=== PATIENT | female | born 1950 | race Caucasian/White ===

== ENCOUNTER 2018-07-05 17:50 | Inpatient (IN) | payer BC ==
[~2018-07-05] VITALS: Ht 157.5 cm; Wt 51.1 kg
[2018-07-05 19:39] VITALS: BP 138/59; PULSE 94; RESP 16
[2018-07-05 20:00] VITALS: PULSE 84; Ht 157.5 cm; Wt 51.1 kg
[2018-07-05] MEDS ORDERED: NACL 0.9% 3 ML SYG IV SCH (21:00)
[2018-07-05] MEDS ORDERED: ACETAMINOPHEN 325 MG TAB PO PRN (21:00)
[2018-07-05] MEDS ORDERED: ALBUTEROL/IPRATROPIUM (NEB) 3 ML AMP HHN PRN (21:00)
[2018-07-05] MEDS ORDERED: HYDROCODONE/APAP (5/325) TAB PO PRN ×2 (21:00)
[2018-07-05] MEDS ORDERED: ONDANSETRON 4 MG INJ IV PRN (21:00)
[2018-07-05] MEDS ORDERED: ATOR20TA38 PO (21:27)
[2018-07-05] MEDS ORDERED: ALBU90AE INHALATION (21:27)
[2018-07-05] MEDS ORDERED: MINE3.5O31 BOTH EYES (21:27)
[2018-07-05] MEDS ORDERED: ASPI-817 PO (21:27)
[2018-07-05] MEDS: SOD CHLORIDE 0.9% 1,000 ML IV SCH (21:30)
[2018-07-05] MEDS ORDERED: VANCOMYCIN IV PER PHARMACY XX SCH (21:30)
[2018-07-05] MEDS ORDERED: CYAN50TA PO (21:42)
[2018-07-05] MEDS ORDERED: CLOP75TA27 PO (21:42)
[2018-07-05] MEDS ORDERED: OMEG-135 PO (21:43)
[2018-07-05] MEDS ORDERED: LEVO50TA89 PO (21:44)
[2018-07-05] MEDS ORDERED: HYDR-4011 PO (21:44)
[2018-07-05] MEDS ORDERED: METF-849 PO (21:45)
[2018-07-05] MEDS ORDERED: METO-335 PO (21:46)
[2018-07-05] MEDS ORDERED: PANT40TA3 PO (21:50)
[2018-07-05] MEDS ORDERED: ONDA8TAB9 PO (21:50)
[2018-07-05] MEDS ORDERED: SODI650T PO (21:51)
[2018-07-05] MEDS ORDERED: PROP30DR BOTH EYES (21:51)
[2018-07-05] MEDS: HEPARIN 5,000 UNIT/1 ML VIAL SC SCH (22:59)
[2018-07-05] MEDS ORDERED: DEXTROSE 50% 50 ML SYRINGE IV PRN ×2 (23:00)
[2018-07-05] MEDS ORDERED: GLUCOSE GEL 15 GRAM TUBE BUCCAL PRN (23:00)
[2018-07-05] MEDS ORDERED: GLUCOSE GEL 15 GRAM TUBE PO PRN ×2 (23:00)
[2018-07-05] MEDS ORDERED: GLUCAGON 1 MG INJ IM PRN (23:00)
[2018-07-05] MEDS: INSULIN ASPART [NOVOLOG] 3 ML PEN SC SCH (23:42)
[2018-07-05] MEDS: ACCU-CHEK XX SCH (23:47)
[2018-07-06] VITALS (10 sets, daily range): BP systolic 133–158; BP diastolic 62–88; PULSE 67–110; RESP 16–22
[2018-07-06] MEDS: VANCOMYCIN 750 MG (PMX) 250 ML IVPB SCH ×2 (02:51→15:16)
--- NOTE | 2018-07-06 07:12 | HP ---
Date/Time of Note Date/Time of Note DATE: 07/06/18 TIME: 22:00 Assessment/Plan VTE Prophylaxis Risk score (from Nsg)>0 risk: 4 SCD applied (from Nsg): Yes Pharmacological prophylaxis: heparin Lines/Catheters IV Catheter Type (from Nrsg): Saline Lock Urinary Cath still in place: No Assessment/Plan Assessment/Plan 1. Left lower extremity cellulitis -IV antibiotic 2. Type 2 diabetes: Insulin while in-house 3. Hypertension: Continue home meds. Adjust as needed 4. Hypothyroidism: Continue Synthroid Result Diagram: 07/06/18 0459 07/06/18 0459 Results 24hrs Laboratory Tests Test 07/05/18 19:45 07/05/18 23:41 07/06/18 04:59 Bedside Glucose 181 139 White Blood Count 10.7 Red Blood Count 3.68 L Hemoglobin 10.5 L Hematocrit 33.0 L Mean Corpuscular Volume 89.7 Mean Corpuscular Hemoglobin 28.5 L Mean Corpuscular Hemoglobin Concent 31.8 L Red Cell Distribution Width 15.4 H Platelet Count 607 H Mean Platelet Volume 9.2 Immature Granulocytes % 0.400 Neutrophils % 63.2 Lymphocytes % 23.9 Monocytes % 9.4 Eosinophils % 2.6 Basophils % 0.5 Nucleated Red Blood Cells % 0.0 Immature Granulocytes # 0.040 H Neutrophils # 6.8 Lymphocytes # 2.6 Monocytes # 1.0 H Eosinophils # 0.3 Basophils # 0.1 Nucleated Red Blood Cells # 0.0 Sodium Level 141 Potassium Level 4.2 Chloride Level 109 Carbon Dioxide Level 23 Anion Gap 9 Blood Urea Nitrogen 15 Creatinine 0.93 Est Glomerular Filtrat Rate mL/min 60 Glucose Level 167 Calcium Level 9.5 Phosphorus Level 3.5 Magnesium Level 1.5 L Total Bilirubin 0.3 Direct Bilirubin 0.00 Indirect Bilirubin 0.3 Aspartate Amino Transf (AST/SGOT) 26 Alanine Aminotransferase (ALT/SGPT) 10 L Alkaline Phosphatase 101 Total Protein 6.9 Albumin 3.7 Globulin 3.20 Albumin/Globulin Ratio 1.15 Triglycerides Level 121 Cholesterol Level 118 LDL Cholesterol, Calculated 44 HDL Cholesterol 50 Cholesterol/HDL Ratio 2.3 HPI/ROS Admit Date/Time Admit Date/Time July 05, 2018 at 18:58 Hx of Present Illness This is a 67-year-old female with a history of hypertension, type 2 diabetes, dyslipidemia, hypothyroidism who initially presented at [facility] complaining of left lower extremity redness and swelling. Patient was diagnosed with cellulitis and transferred to [facility] for insurance reasons. PMH/Family/Social Past Medical History Past Surgical Hx: other (see hpi) Family History Significant Family History: no pertinent family hx Social History Alcohol Use: none Smoking Status: Never smoker Drug Use: none Exam Exam Constitutional: other (No acute distress) Head: normocephalic, atraumatic Eyes: EOMI, PERRL Respiratory: other (no wheezing or Rhonchi) Cardiovascular: normal pulse Gastrointestinal: soft, non-tender Extremities: normal pulses Medications Current Medications Sodium Chloride 1,000 ml @ 80 mls/hr [id number] IV Last administered on 07/05/18at 21:30; Admin Dose 80 MLS/HR; Start 07/05/18 at 20:55 IV Flush (NS 3 ml) 3 ml PER PROTOCOL IV ; Start 07/05/18 at 21:00 Ondansetron HCl (Zofran Inj) 4 mg Q6H PRN IV NAUSEA/VOMITING; Start 07/05/18 at 21:00 Acetaminophen (Tylenol Tab) 650 mg Q6H PRN PO .PAIN 1-3 OR TEMP; Start 07/05/18 at 21:00 Acetaminophen/ Hydrocodone Bitart ([place] (5/325)) 1 tab Q6H PRN PO .MOD PAIN 4- 6; Start 07/05/18 at 21:00 Acetaminophen/ Hydrocodone Bitart ([place] (5/325)) 2 tab Q6H PRN PO .SEVERE PAIN 7-10; Start 07/05/18 at 21:00 Heparin Sodium (Porcine) (Heparin (5000 Units/1ml)) 5,000 unit Q12 SC Last administered on 07/05/18at 22:59; Admin Dose 5,000 UNIT; Start 07/05/18 at 21:00 Albuterol/ Ipratropium (Duoneb) 3 ml Q2H RESP THERAPY PRN HHN SHORTNESS OF BREATH; Start 07/05/18 at 21:00 Diagnostic Test (Pha) (Accu-Chek) 1 ea 02 XX ; Start 07/06/18 at 02:00 Insulin Aspart (Novolog Insulin Pen) NOVOLOG *MILD* ALGORITHM WITH MEALS BEDTIME SC ; Start 07/05/18 at 22:30 Vancomycin HCl (Vanco Iv Per Pharmacy) VANCOMYCIN PER PHARMACY PER PROTOCOL XX ; Start 07/05/18 at 21:30 Cefepime HCl 50 ml @ 100 mls/hr Q12 IVPB ; Start 07/06/18 at 09:00 Miscellaneous Information 1 ea NOTE XX ; Start 07/05/18 at 23:00 Glucose (Glutose) 15 gm Q15M PRN PO DECREASED GLUCOSE; Start 07/05/18 at 23:00 Glucose (Glutose) 22.5 gm Q15M PRN PO DECREASED GLUCOSE; Start 07/05/18 at 23:00 Dextrose (D50w Syringe) 25 ml Q15M PRN IV DECREASED GLUCOSE; Start 07/05/18 at 23:00 Dextrose (D50w Syringe) 50 ml Q15M PRN IV DECREASED GLUCOSE; Start 07/05/18 at 23:00 Glucagon (Glucagen) 1 mg Q15M PRN IM DECREASED GLUCOSE; Start 07/05/18 at 23:00 Glucose (Glutose) 15 gm Q15M PRN BUCCAL DECREASED GLUCOSE; Start 07/05/18 at 23: 00 Vancomycin/Sodium Chloride 250 ml @ 125 mls/hr Q12H IVPB Last administered on 07/06/18at 02:51; Admin Dose 125 MLS/HR; Start 07/06/18 at 03:00 Coded Allergies: levofloxacin (Verified Allergy, Unknown, 07/05/18) Social History Smoking Status: Never smoker Exam/Review of Systems Vital Signs Vitals Vital Signs Date Temp Pulse Resp B/P (MAP) Pulse Ox O2 O2 Flow FiO2 Time Delivery Rate 07/06/18 110 04:00 07/06/18 97.6 22 145/68 100 Room Air 04:00 (93) Intake and Output 07/05/18 07/05/18 07/06/18 1515:00 23:00 07:00 IntakeIntake Total 180 ml 910 ml BalanceBalance 180 ml 910 ml ARSH KIM MD July 06, 2018 07:12
[2018-07-06] MEDS ORDERED: OCULAR LUBRICANT 3.5 GM OPH OINT BOTH EYES PRN (07:30)
[2018-07-06] MEDS ORDERED: PROPYLENE GLYCOL/PEG 5 ML OPHTH DROPS BOTH EYES PRN ×2 (07:30→09:08)
[2018-07-06] MEDS: INSULIN ASPART [NOVOLOG] 3 ML PEN SC SCH ×4 (07:35→20:29)
[2018-07-06] MEDS: PANTOPRAZOLE (EC) 40 MG TAB PO SCH (07:56)
[2018-07-06] MEDS: SOD CHLORIDE 0.9% 1,000 ML IV SCH (10:34)
[2018-07-06] MEDS: CEFEPIME 1GM/50 ML (PMX) 50 ML IVPB SCH ×2 (10:53→20:14)
[2018-07-06] MEDS: CLOPIDOGREL 75 MG TAB PO SCH (10:54)
[2018-07-06] MEDS: METOPROLOL (XL) 25 MG TAB PO SCH ×2 (10:54→20:15)
[2018-07-06] MEDS: ASPIRIN (EC) 81 MG TAB PO SCH (10:54)
[2018-07-06] MEDS: FISH OIL 1,000 MG CAP PO SCH (10:55)
--- NOTE | 2018-07-06 11:15 | PN ---
Date/Time of Note Date/Time of Note DATE: 07/06/18 TIME: 11:13 Assessment/Plan VTE Prophylaxis Risk score (from Ns)>0 risk: 4 SCD applied (from Ns): No SCD contraindicated: low risk/ambulating Pharmacological prophylaxis: LMWH Lines/Catheters IV Catheter Type (from [facility] Saline Lock Urinary Cath still in place: No Assessment/Plan Hospital Course Assessment plan 1. Left lower extremity cellulitis, stable continue therapy 2. Bilateral stasis left greater than right 3. Dependent edema 4. Diabetic neuropathy 5. Onychomycosis? 6. Type 2 diabetes A1c 6.6 7. Metabolic syndrome 8. Hypertension 9. Dyslipidemia 10. Anemia, check iron 11. Chronic hypothyroidism 12. Chronic left cataract? S: Edema lt > rt. no fever nausea vomiting. Gait dysfunction due to edema? No loss of speech or vision. O: Vital signs stable sinus poor r PE no pallor/ jvd/ adenopathy reg s1s2 no mrg ctab bs + nt nd; no r r g mild edema/ stasis; lt erythema; neuropathy Result Diagram: 07/06/18 0459 07/06/18 0459 Results 24hrs Laboratory Tests Test 07/05/18 19:45 07/05/18 23:41 07/06/18 04:59 07/06/18 10:31 Bedside Glucose 181 139 107 White Blood Count 10.7 Red Blood Count 3.68 L Hemoglobin 10.5 L Hematocrit 33.0 L Mean Corpuscular 89.7 Volume Mean Corpuscular 28.5 L Hemoglobin Mean Corpuscular 31.8 L Hemoglobin Concent Red Cell Distribution 15.4 H Width Platelet Count 607 H Mean Platelet Volume 9.2 Immature Granulocytes 0.400 % Neutrophils % 63.2 Lymphocytes % 23.9 Monocytes % 9.4 Eosinophils % 2.6 Basophils % 0.5 Nucleated Red Blood 0.0 Cells % Immature Granulocytes 0.040 H # Neutrophils # 6.8 Lymphocytes # 2.6 Monocytes # 1.0 H Eosinophils # 0.3 Basophils # 0.1 Nucleated Red Blood 0.0 Cells # Sodium Level 141 Potassium Level 4.2 Chloride Level 109 Carbon Dioxide Level 23 Anion Gap 9 Blood Urea Nitrogen 15 Creatinine 0.93 Est Glomerular Filtrat 60 Rate mL/min Glucose Level 167 Hemoglobin A1c 6.6 H Calcium Level 9.5 Phosphorus Level 3.5 Magnesium Level 1.5 L Total Bilirubin 0.3 Direct Bilirubin 0.00 Indirect Bilirubin 0.3 Aspartate Amino 26 Transf (AST/SGOT) Alanine 10 L Aminotransferase (ALT/ SGPT) Alkaline Phosphatase 101 Total Protein 6.9 Albumin 3.7 Globulin 3.20 Albumin/Globulin Ratio 1.15 Triglycerides Level 121 Cholesterol Level 118 LDL Cholesterol, 44 Calculated HDL Cholesterol 50 Cholesterol/HDL Ratio 2.3 Exam/Review of Systems Exam Vitals Vital Signs Date Temp Pulse Resp B/P (MAP) Pulse Ox O2 O2 Flow FiO2 Time Delivery Rate 07/06/18 88 10:01 07/06/18 98.0 18 134/64 97 Room Air 09:01 (87) Intake and Output 07/05/18 07/05/18 07/06/18 1515:00 23:00 07:00 IntakeIntake Total 180 ml 910 ml BalanceBalance 180 ml 910 ml Results Results 24hrs Laboratory Tests Test 07/05/18 19:45 07/05/18 23:41 07/06/18 04:59 07/06/18 10:31 Bedside Glucose 181 139 107 White Blood Count 10.7 Red Blood Count 3.68 L Hemoglobin 10.5 L Hematocrit 33.0 L Mean Corpuscular 89.7 Volume Mean Corpuscular 28.5 L Hemoglobin Mean Corpuscular 31.8 L Hemoglobin Concent Red Cell Distribution 15.4 H Width Platelet Count 607 H Mean Platelet Volume 9.2 Immature Granulocytes 0.400 % Neutrophils % 63.2 Lymphocytes % 23.9 Monocytes % 9.4 Eosinophils % 2.6 Basophils % 0.5 Nucleated Red Blood 0.0 Cells % Immature Granulocytes 0.040 H # Neutrophils # 6.8 Lymphocytes # 2.6 Monocytes # 1.0 H Eosinophils # 0.3 Basophils # 0.1 Nucleated Red Blood 0.0 Cells # Sodium Level 141 Potassium Level 4.2 Chloride Level 109 Carbon Dioxide Level 23 Anion Gap 9 Blood Urea Nitrogen 15 Creatinine 0.93 Est Glomerular Filtrat 60 Rate mL/min Glucose Level 167 Hemoglobin A1c 6.6 H Calcium Level 9.5 Phosphorus Level 3.5 Magnesium Level 1.5 L Total Bilirubin 0.3 Direct Bilirubin 0.00 Indirect Bilirubin 0.3 Aspartate Amino 26 Transf (AST/SGOT) Alanine 10 L Aminotransferase (ALT/ SGPT) Alkaline Phosphatase 101 Total Protein 6.9 Albumin 3.7 Globulin 3.20 Albumin/Globulin Ratio 1.15 Triglycerides Level 121 Cholesterol Level 118 LDL Cholesterol, 44 Calculated HDL Cholesterol 50 Cholesterol/HDL Ratio 2.3 Medications Medication Current Medications Sodium Chloride 1,000 ml @ 80 mls/hr [id number] IV Last administered on 07/06/18at 10:34; Admin Dose 80 MLS/HR; Start 07/05/18 at 20:55 IV Flush (NS 3 ml) 3 ml PER PROTOCOL IV ; Start 07/05/18 at 21:00 Ondansetron HCl (Zofran Inj) 4 mg Q6H PRN IV NAUSEA/VOMITING; Start 07/05/18 at 21:00 Acetaminophen (Tylenol Tab) 650 mg Q6H PRN PO .PAIN 1-3 OR TEMP; Start 07/05/18 at 21:00 Acetaminophen/ Hydrocodone Bitart ([place] (5/325)) 1 tab Q6H PRN PO .MOD PAIN 4- 6; Start 07/05/18 at 21:00 Acetaminophen/ Hydrocodone Bitart ([place] (5/325)) 2 tab Q6H PRN PO .SEVERE PAIN 7-10; Start 07/05/18 at 21:00 Heparin Sodium (Porcine) (Heparin (5000 Units/1ml)) 5,000 unit Q12 SC Last administered on 07/05/18at 22:59; Admin Dose 5,000 UNIT; Start 07/05/18 at 21:00 Albuterol/ Ipratropium (Duoneb) 3 ml Q2H RESP THERAPY PRN HHN SHORTNESS OF B REATH; Start 07/05/18 at 21:00 Diagnostic Test (Pha) (Accu-Chek) 1 ea 02 XX ; Start 07/06/18 at 02:00 Insulin Aspart (Novolog Insulin Pen) NOVOLOG *MILD* ALGORITHM WITH MEALS BEDTIME SC ; Start 07/05/18 at 22:30 Vancomycin HCl (Vanco Iv Per Pharmacy) VANCOMYCIN PER PHARMACY PER PROTOCOL XX ; Start 07/05/18 at 21:30 Cefepime HCl 50 ml @ 100 mls/hr Q12 IVPB ; Start 07/06/18 at 09:00 Miscellaneous Information 1 ea NOTE XX ; Start 07/05/18 at 23:00 Glucose (Glutose) 15 gm Q15M PRN PO DECREASED GLUCOSE; Start 07/05/18 at 23:00 Glucose (Glutose) 22.5 gm Q15M PRN PO DECREASED GLUCOSE; Start 07/05/18 at 23:00 Dextrose (D50w Syringe) 25 ml Q15M PRN IV DECREASED GLUCOSE; Start 07/05/18 at 23:00 Dextrose (D50w Syringe) 50 ml Q15M PRN IV DECREASED GLUCOSE; Start 07/05/18 at 23:00 Glucagon (Glucagen) 1 mg Q15M PRN IM DECREASED GLUCOSE; Start 07/05/18 at 23:00 Glucose (Glutose) 15 gm Q15M PRN BUCCAL DECREASED GLUCOSE; Start 07/05/18 at 23:00 Vancomycin/Sodium Chloride 250 ml @ 125 mls/hr Q12H IVPB Last administered on 07/06/18at 02:51; Admin Dose 125 MLS/HR; Start 07/06/18 at 03:00 Eye Lubricant (Akwa Oint) 1 applic Q1H PRN BOTH EYES DRY EYES; Start 07/06/18 at 07:30 Aspirin (Halfprin) 81 mg DAILY PO ; Start 07/06/18 at 09:00 Atorvastatin Calcium (Lipitor) 20 mg QHS PO ; Start 07/06/18 at 21:00 Clopidogrel Bisulfate (plaVIX) 75 mg DAILY PO ; Start 07/06/18 at 09:00 Levothyroxine Sodium (Synthroid) 50 mcg BEFORE BREAKFAST PO ; Start 07/07/18 at 07:00 Metoprolol Succinate (Toprol Xl) 25 mg BID PO ; Start 07/06/18 at 09:00 Pantoprazole (Protonix Tab) 40 mg DAILY@0600 PO Last administered on 07/06/18at 07:56; Admin Dose 40 MG; Start 07/06/18 at 07:30 Miscellaneous Information 2 puffs Q4 PRN INHALATION WHEEZING; Start 07/06/18 at 07:30; Status UNV Fish Oil (Fish Oil) 1,000 mg DAILY PO ; Start 07/06/18 at 09:00 Polyethyl Glycol/ Propylene Glycol (Systane 0.3-0.4% Eye Drops) 1 drop Q4H PRN BOTH EYES DRY EYES; Start 07/06/18 at 09:08 FERNANDO YANCEY MD July 06, 2018 11:15
[2018-07-06] MEDS: HEPARIN 5,000 UNIT/1 ML VIAL SC SCH (11:16)
[2018-07-06] MEDS ORDERED: ALBUTEROL HFA 8 GM INHALER INH PRN (12:30)
[2018-07-06] MEDS: MAGNESIUM OXIDE 400 MG TAB PO SCH ×2 (12:30→20:14)
[2018-07-06] MEDS: ATORVASTATIN 20 MG TAB PO SCH (20:14)
[2018-07-07] VITALS (11 sets, daily range): BP systolic 106–146; BP diastolic 55–76; PULSE 58–79; RESP 17–18
[2018-07-07] MEDS: ACCU-CHEK XX SCH (02:00)
[2018-07-07] MEDS: LEVOTHYROXINE 50 MCG TAB PO SCH (06:20)
[2018-07-07] MEDS: PANTOPRAZOLE (EC) 40 MG TAB PO SCH (06:23)
[2018-07-07] MEDS: INSULIN ASPART [NOVOLOG] 3 ML PEN SC SCH ×4 (07:55→20:27)
[2018-07-07] MEDS: VANCOMYCIN 500 MG (PMX) 100 ML IVPB SCH ×2 (08:52→20:43)
[2018-07-07] MEDS: METOPROLOL (XL) 25 MG TAB PO SCH ×2 (08:53→20:36)
[2018-07-07] MEDS: FISH OIL 1,000 MG CAP PO SCH (08:53)
[2018-07-07] MEDS: CLOPIDOGREL 75 MG TAB PO SCH (08:53)
[2018-07-07] MEDS: MAGNESIUM OXIDE 400 MG TAB PO SCH ×2 (08:54→20:35)
[2018-07-07] MEDS: ASPIRIN (EC) 81 MG TAB PO SCH (08:54)
[2018-07-07] MEDS: LACTOBACILLUS RHAMNOSUS CAP PO SCH ×2 (08:54→20:34)
[2018-07-07] MEDS: LISINOPRIL 5 MG TAB PO SCH (08:54)
[2018-07-07] MEDS: ENOXAPARIN 30 MG/0.3 ML SYG SC SCH (08:56)
[2018-07-07] MEDS: CEFEPIME 1GM/50 ML (PMX) 50 ML IVPB SCH (10:28)
--- NOTE | 2018-07-07 15:08 | PN ---
Date/Time of Note Date/Time of Note DATE: 07/07/18 TIME: 15:04 Assessment/Plan VTE Prophylaxis Risk score (from Ns)>0 risk: 3 SCD applied (from Ns): No SCD contraindicated: low risk/ambulating Pharmacological prophylaxis: LMWH Lines/Catheters IV Catheter Type (from Nrs): Peripheral IV Urinary Cath still in place: No Assessment/Plan Hospital Course Assessment plan 1. Lt lwr ext cellulitis, stable cont therapy. outpt PT/ APC 2. Bilateral stasis left > right 3. Dependent edema 4. Diabetic neuropathy 5. Onychomycosis? 6. Type 2 diabetes A1c 6.6 7. Metabolic syndrome 8. Hypertension 9. Dyslipidemia 10. Anemia, check iron 11. Chronic hypothyroidism 12. Chronic left cataract? 13. PAD; outpt vascular S: 07/06: Edema lt > rt. no fever nausea vomiting. Gait dysfunction due to edema? No loss of speech or vision. 07/07: no events; gait dysfunction O: Vital signs stable sinus poor r PE no pallor/ jvd/ adenopathy reg s1s2 no mrg ctab bs + nt nd; no r r g mild edema/ stasis; lt erythema; neuropathy non focal Result Diagram: 07/07/18 0608 07/07/18 0608 Results 24hrs Laboratory Tests Test 07/06/18 17:28 07/06/18 20:27 07/07/18 01:57 07/07/18 06:08 Bedside Glucose 95 174 Vancomycin Level 19.7 Trough White Blood Count 8.9 Red Blood Count 3.35 L Hemoglobin 9.7 L Hematocrit 30.3 L Mean Corpuscular 90.4 Volume Mean Corpuscular 29.0 Hemoglobin Mean Corpuscular 32.0 Hemoglobin Concent Red Cell 15.3 H Distribution Width Platelet Count 541 H Mean Platelet Volume 9.2 Immature 0.300 Granulocytes % Neutrophils % 62.8 Lymphocytes % 21.6 Monocytes % 11.9 H Eosinophils % 2.9 Basophils % 0.5 Nucleated Red Blood 0.0 Cells % Immature 0.030 Granulocytes # Neutrophils # 5.6 Lymphocytes # 1.9 Monocytes # 1.1 H Eosinophils # 0.3 Basophils # 0.0 Nucleated Red Blood 0.0 Cells # Erythrocyte 40.0 H Sedimentation Rate Prothrombin Time 12.6 Prothrombin Time 1.0 Ratio INR International 0.93 Normalized Ratio Sodium Level 144 Potassium Level 4.3 Chloride Level 112 H Carbon Dioxide Level 23 Anion Gap 9 Blood Urea Nitrogen 11 Creatinine 0.83 Est Glomerular > 60 Filtrat Rate mL/min Glucose Level 121 # Lactic Acid Level 1.1 Calcium Level 9.2 Iron Level 36 Total Iron Binding 280 Capacity Percent Iron 13 L Saturation Total Bilirubin 0.3 Direct Bilirubin 0.00 Indirect Bilirubin 0.3 Aspartate Amino 32 Transf (AST/SGOT) Alanine 25 Aminotransferase (AL T/SGPT) Alkaline Phosphatase 94 C-Reactive Protein 1.8 H Total Protein 6.3 Albumin 3.1 L Globulin 3.20 Albumin/Globulin 0.96 Ratio Lipase 68 Folate > 20.0 H Thyroid Stimulating 3.840 Hormone (TSH) Test 07/07/18 07:53 07/07/18 11:55 Bedside Glucose 124 162 Exam/Review of Systems Exam Vitals Vital Signs Date Temp Pulse Resp B/P (MAP) Pulse Ox O2 O2 Flow FiO2 Time Delivery Rate 07/07/18 74 13:22 07/07/18 98.0 18 111/67 97 Room Air 11:00 (82) Intake and Output 07/06/18 07/06/18 07/07/18 1515:00 23:00 07:00 IntakeIntake Total 730 ml 400 ml BalanceBalance 730 ml 400 ml Results Results 24hrs Laboratory Tests Test 07/06/18 17:28 07/06/18 20:27 07/07/18 01:57 07/07/18 06:08 Bedside Glucose 95 174 Vancomycin Level 19.7 Trough White Blood Count 8.9 Red Blood Count 3.35 L Hemoglobin 9.7 L Hematocrit 30.3 L Mean Corpuscular 90.4 Volume Mean Corpuscular 29.0 Hemoglobin Mean Corpuscular 32.0 Hemoglobin Concent Red Cell 15.3 H Distribution Width Platelet Count 541 H Mean Platelet Volume 9.2 Immature 0.300 Granulocytes % Neutrophils % 62.8 Lymphocytes % 21.6 Monocytes % 11.9 H Eosinophils % 2.9 Basophils % 0.5 Nucleated Red Blood 0.0 Cells % Immature 0.030 Granulocytes # Neutrophils # 5.6 Lymphocytes # 1.9 Monocytes # 1.1 H Eosinophils # 0.3 Basophils # 0.0 Nucleated Red Blood 0.0 Cells # Erythrocyte 40.0 H Sedimentation Rate Prothrombin Time 12.6 Prothrombin Time 1.0 Ratio INR International 0.93 Normalized Ratio Sodium Level 144 Potassium Level 4.3 Chloride Level 112 H Carbon Dioxide Level 23 Anion Gap 9 Blood Urea Nitrogen 11 Creatinine 0.83 Est Glomerular > 60 Filtrat Rate mL/min Glucose Level 121 # Lactic Acid Level 1.1 Calcium Level 9.2 Iron Level 36 Total Iron Binding 280 Capacity Percent Iron 13 L Saturation Total Bilirubin 0.3 Direct Bilirubin 0.00 Indirect Bilirubin 0.3 Aspartate Amino 32 Transf (AST/SGOT) Alanine 25 Aminotransferase (AL T/SGPT) Alkaline Phosphatase 94 C-Reactive Protein 1.8 H Total Protein 6.3 Albumin 3.1 L Globulin 3.20 Albumin/Globulin 0.96 Ratio Lipase 68 Folate > 20.0 H Thyroid Stimulating 3.840 Hormone (TSH) Test 07/07/18 07:53 07/07/18 11:55 Bedside Glucose 124 162 Medications Medication Current Medications IV Flush (NS 3 ml) 3 ml PER PROTOCOL IV ; Start 07/05/18 at 21:00 Ondansetron HCl (Zofran Inj) 4 mg Q6H PRN IV NAUSEA/VOMITING; Start 07/05/18 at 21:00 Acetaminophen (Tylenol Tab) 650 mg Q6H PRN PO .PAIN 1-3 OR TEMP; Start 07/05/18 at 21:00 Acetaminophen/ Hydrocodone Bitart ([place] (5/325)) 1 tab Q6H PRN PO .MOD PAIN 4- 6; Start 07/05/18 at 21:00 Acetaminophen/ Hydrocodone Bitart ([place] (5/325)) 2 tab Q6H PRN PO .SEVERE PAIN 7-10; Start 07/05/18 at 21:00 Albuterol/ Ipratropium (Duoneb) 3 ml Q2H RESP THERAPY PRN HHN SHORTNESS OF BREATH; Start 07/05/18 at 21:00 Diagnostic Test (Pha) (Accu-Chek) 1 ea 02 XX ; Start 07/06/18 at 02:00 Insulin Aspart (Novolog Insulin Pen) NOVOLOG *MILD* ALGORITHM WITH MEALS BEDTIME SC Last administered on 07/07/18at 12:16; Admin Dose 1 UNIT; Start 07/05/18 at 22:30 Vancomycin HCl (Vanco Iv Per Pharmacy) VANCOMYCIN PER PHARMACY PER PROTOCOL XX ; Start 07/05/18 at 21:30 Cefepime HCl 50 ml @ 100 mls/hr Q12 IVPB Last administered on 07/07/18at 10:28; Admin Dose 100 MLS/HR; Start 07/06/18 at 09:00 Miscellaneous Information 1 ea NOTE XX ; Start 07/05/18 at 23:00 Glucose (Glutose) 15 gm Q15M PRN PO DECREASED GLUCOSE; Start 07/05/18 at 23:00 Glucose (Glutose) 22.5 gm Q15M PRN PO DECREASED GLUCOSE; Start 07/05/18 at 23:00 Dextrose (D50w Syringe) 25 ml Q15M PRN IV DECREASED GLUCOSE; Start 07/05/18 at 23:00 Dextrose (D50w Syringe) 50 ml Q15M PRN IV DECREASED GLUCOSE; Start 07/05/18 at 23:00 Glucagon (Glucagen) 1 mg Q15M PRN IM DECREASED GLUCOSE; Start 07/05/18 at 23:00 Glucose (Glutose) 15 gm Q15M PRN BUCCAL DECREASED GLUCOSE; Start 07/05/18 at 23:00 Eye Lubricant (Akwa Oint) 1 applic Q1H PRN BOTH EYES DRY EYES; Start 07/06/18 at 07:30 Aspirin (Halfprin) 81 mg DAILY PO Last administered on 07/07/18at 08:54; Admin Dose 81 MG; Start 07/06/18 at 09:00 Atorvastatin Calcium (Lipitor) 20 mg QHS PO Last administered on 07/06/18at 20:14; Admin Dose 20 MG; Start 07/06/18 at 21:00 Clopidogrel Bisulfate (plaVIX) 75 mg DAILY PO Last administered on 07/07/18at 0 8:53; Admin Dose 75 MG; Start 07/06/18 at 09:00 Levothyroxine Sodium (Synthroid) 50 mcg BEFORE BREAKFAST PO Last administered on 07/07/18at 06:20; Admin Dose 50 MCG; Start 07/07/18 at 07:00 Metoprolol Succinate (Toprol Xl) 25 mg BID PO Last administered on 07/07/18at 08:53; Admin Dose 25 MG; Start 07/06/18 at 09:00 Pantoprazole (Protonix Tab) 40 mg DAILY@0600 PO Last administered on 07/07/18at 06:23; Admin Dose 40 MG; Start 07/06/18 at 07:30 Albuterol (Ventolin Hfa) 2 puff Q4H RESP THERAPY PRN INH WHEEZING; Start 07/06/18 at 12:30 Fish Oil (Fish Oil) 1,000 mg DAILY PO Last administered on 07/07/18 08:53; Admin Dose 1,000 MG; Start 07/06/18 at 09:00 Polyethyl Glycol/ Propylene Glycol (Systane 0.3-0.4% Eye Drops) 1 drop Q4H PRN BOTH EYES DRY EYES; Start 07/06/18 at 09:08 Lisinopril (Zestril) 2.5 mg DAILY PO Last administered on 07/07/18 08:54; Admin Dose 2.5 MG; Start 07/07/18 at 09:00 Enoxaparin Sodium (Lovenox) 30 mg DAILY SC Last administered on 07/07/18 08:56; Admin Dose 30 MG; Start 07/07/18 at 09:00 Lactobacillus Acidophilus/ Rhamnosus (Culturelle) 1 cap BID PO Last adm inistered on 07/07/18 08:54; Admin Dose 1 CAP; Start 07/07/18 at 09:00 Magnesium Oxide (Mag-Ox 400) 400 mg BID PO Last administered on 07/07/18 08:54; Admin Dose 400 MG; Start 07/06/18 at 11:30 Vancomycin HCl 100 ml @ 100 mls/hr Q12H IVPB Last administered on 07/07/18 08:52; Admin Dose 100 MLS/HR; Start 07/07/18 at 08:00 FERNANDO YANCEY MD July 07, 2018 15:08
[2018-07-07] MEDS: ATORVASTATIN 20 MG TAB PO SCH (20:35)
[2018-07-08] MEDS: ACCU-CHEK XX SCH (01:40)
[2018-07-08 02:25] VITALS: BP 117/60; PULSE 73; RESP 18
[2018-07-08] MEDS: LEVOTHYROXINE 50 MCG TAB PO SCH (06:10)
[2018-07-08] MEDS: PANTOPRAZOLE (EC) 40 MG TAB PO SCH (06:10)
[2018-07-08 08:03] VITALS: BP 117/58; PULSE 62; RESP 18
[2018-07-08] MEDS: INSULIN ASPART [NOVOLOG] 3 ML PEN SC SCH ×2 (08:22→12:00)
[2018-07-08] MEDS: ENOXAPARIN 30 MG/0.3 ML SYG SC SCH (08:22)
[2018-07-08] MEDS: ASPIRIN (EC) 81 MG TAB PO SCH (08:25)
[2018-07-08] MEDS: CLOPIDOGREL 75 MG TAB PO SCH (08:25)
[2018-07-08] MEDS: LACTOBACILLUS RHAMNOSUS CAP PO SCH (08:25)
[2018-07-08] MEDS: MAGNESIUM OXIDE 400 MG TAB PO SCH (08:25)
[2018-07-08] MEDS: FISH OIL 1,000 MG CAP PO SCH (08:25)
[2018-07-08] MEDS: METOPROLOL (XL) 25 MG TAB PO SCH (08:26)
[2018-07-08] MEDS: LISINOPRIL 5 MG TAB PO SCH (08:26)
[2018-07-08] MEDS ORDERED: VANCOMYCIN 500 MG (PMX) 100 ML IVPB SCH (09:30)
--- NOTE | 2018-07-08 10:20 | DS ---
Date/Time of Note Date/Time of Note DATE: 07/08/18 TIME: 10:17 Discharge Summary Admission/Discharge Info Admit Date/Time July 05, 2018 at 18:58 Discharge Date/Time Patient Condition: Stable Procedures Arterial lower extremity ultrasound bilaterally IMPRESSION: 1. Monophasic waveforms in the right posterior tibial and dorsalis pedis arteries consistent with a significant right infrapopliteal stenosis. 2. Change from triphasic to monophasic waveforms in the proximal left superficial femoral artery consistent with a significant stenosis. CAT scan brain no contrast IMPRESSION: 1. Moderate diffuse atrophy. 2. Microangiopathic ischemic changes. 3. Old focal right frontal infarct. 4. Vascular calcifications. Hx of Present Illness 67-year-old female admitted with left lower extremity concern of infection Hospital Course Hospitalist coverage/hospital course Evaluated for left lower extremity infection. Erythema edema has improved over her hospital stay. Stable for discharge home on a short course of antibiotics. She potentially had an issue with Levaquin with encephalopathy and loss of appetite. Family updated. We will sent home on short course of Bactrim. Large issue is diabetic neuropathy and peripheral artery disease likely she has not been completely/effectively managed prior to admission. Patient has not seen a coffee urn attendant in over a year since she moved from the [facility]. I will see if case management can refer patient to outpatient podiatry and vascular surgery. She has no significant claudication at this time. Gait dysfunction due to diabetic neuropathy. Has an age undetermined old stroke. Arrange for outpatient PT. Needs advanced care planning reevaluated. Assessment plan 1. Lt lwr ext cellulitis, stable cont therapy. outpt PT/ APC 2. Bilateral stasis left > right 3. Dependent edema 4. Diabetic neuropathy 5. Onychomycosis? 6. Type 2 diabetes A1c 6.6 7. Metabolic syndrome 8. Hypertension 9. Dyslipidemia 10. Anemia, check iron 11. Chronic hypothyroidism 12. Chronic left cataract? 13. PAD; outpt vascular 14. Old stroke by imaging continue risk factor modification S: 07/06: Edema lt > rt. no fever nausea vomiting. Gait dysfunction due to edema? No loss of speech or vision. 07/07: no events; gait dysfunction 07/08: No events O: Vital signs stable PE no pallor/ jvd/ adenopathy reg s1s2 no mrg ctab bs + nt nd; no r r g mild edema/ stasis; lt erythema; neuropathy non focal Home Meds Reported Medications Sodium Bicarbonate* (Sodium Bicarbonate*) 650 Mg Tablet, 650 MG PO TID, TAB 07/05/18 Propylene Glycol-Peg 400 (Systane 0.3-0.4% Eye Drops) 0.3-0.4 % - 30 Ml Drops, 1 DROP BOTH EYES Q4H PRN for DRY EYES, #1 BOTTLE 07/05/18 Pantoprazole* (Protonix*) 40 Mg Tablet.dr, 40 MG PO QAM, TAB 07/05/18 Ondansetron Hcl* (Zofran*) 8 Mg Tablet, 8 MG PO Q6H PRN for NAUSEA AND OR VOMITING, TAB 07/05/18 Metoprolol Succinate* (Toprol XL*) 25 Mg Tab.sr.24h, 25 MG PO BID, #30 TAB 07/05/18 Metformin* (Glucophage*) 500 Mg Tab, 500 MG PO WITH BREAKFAST, #30 TAB 07/05/18 Levothyroxine Sodium* (Synthroid*) 50 Mcg Tablet, 50 MCG PO BEFORE BREAKFAST, #30 TAB 07/05/18 Hydrocodone/Acetaminophen ([place] 5-325 Tablet) 1 Each Tablet, 1 EACH PO Q6 PRN for PAIN, TAB 07/05/18 [place]-3 Fatty Acids/Fish Oil (Fish Oil 1,000 mg Capsule) 1 Each Capsule, 1 EACH PO DAILY, CAP 07/05/18 Cyanocobalamin* (Vitamin B-12*) 50 Mcg Tablet, 50 MCG PO DAILY, TAB 07/05/18 Clopidogrel Bisulfate (Clopidogrel) 75 Mg Tablet, 75 MG PO DAILY, #30 TAB 07/05/18 Atorvastatin Calcium* (Atorvastatin Calcium*) 20 Mg Tablet, 20 MG PO QHS, #30 TAB 07/05/18 Aspirin* (Aspirin* EC) 81 Mg Tablet.dr, 81 MG PO DAILY, TAB 07/05/18 Artificial Tears* (Akwa Oint*) 3.5 Gm Oint, 1 APPLIC BOTH EYES Q1H PRN for DRY EYES, #1 TUB 07/05/18 Albuterol Sulfate (Proair Respiclick) 90 Mcg Aer.pow.ba, 2 PUFFS INHALATION Q4 PRN for WHEEZING, BOTTLE 07/05/18 Primary Care Provider Not On Staff Doctor Time spent on discharge: > 30 minutes Pending Labs Laboratory Tests Test 07/07/18 11:55 07/07/18 17:22 07/07/18 20:26 07/08/18 08:13 Bedside 162 115 170 143 Glucose mg/dL (70-220) mg/dL (70-220) mg/dL (70-220) mg/dL (70-220) FERNANDO YANCEY MD July 08, 2018 10:20
--- NOTE | 2018-07-08 10:32 | PDOCDIS ---
Discharge Instructions CONDITION [id number] Patient Condition: [id number] Stable HOME CARE INSTRUCTIONS: [id number] Diet Instructions: [id number] Activity Restrictions: [id number] Slowly Increase Activity Do not Drive FOLLOW UP/APPOINTMENTS Follow-up Plan appt primary & APC Wound clinic 1wk. Vascular Surgery 1-2wks. FERNANDO YANCEY MD July 08, 2018 10:32
[2018-07-08] MEDS ORDERED: ACET325T33 PO (10:35)
[2018-07-08] MEDS ORDERED: MAGN400T27 PO (10:35)
[2018-07-08] MEDS ORDERED: SULF-182 PO (10:35)
[2018-07-08] MEDS ORDERED: LACT1CAP28 PO (10:35)
[2018-07-08] MEDS ORDERED: LISI-313 PO (10:35)
[2018-07-08 14:40] VITALS: BP 115/56; PULSE 71; RESP 16
[2018-07-08] MEDS ORDERED: TRIMETHOPRIM/SULFAMETHOX (DS) TAB PO SCH (21:00)
== END 2018-07-08 15:00 | disposition home or self-care (01) | DRG 602 ==
LOC: MS3 18:58 → TEL 07-06 08:22 → PP2 07-07 19:31
PROVIDERS: ADMIT Internal Medicine; ATTEND Internal Medicine
DX: L03.116 Cellulitis of left lower limb (principal); G92 Toxic encephalopathy; I10 Essential (primary) hypertension; E03.9 Hypothyroidism, unspecified; I87.8 Other specified disorders of veins; E11.40 Type 2 diabetes mellitus with diabetic neuropathy, unspecified; E88.81 Metabolic syndrome and other insulin resistance; D64.9 Anemia, unspecified; E11.51 Type 2 diabetes mellitus with diabetic peripheral angiopathy without gangrene; E11.36 Type 2 diabetes mellitus with diabetic cataract; R63.0 Anorexia; T36.8X5A Adverse effect of other systemic antibiotics, initial encounter; Y92.230 Patient room in hospital as the place of occurrence of the external cause; B35.1 Tinea unguium; Z86.73 Personal history of transient ischemic attack (TIA), and cerebral infarction without residual deficits
CPT/HCPCS: 70450; 80053; 80061; 80202; 82746; 82962; 83036; 83540; 83605; 83690; 83735; 84100; 84443; 85025; 85610; 85651; 86140; 93922; J0692; J1644; J1650; J1815; J3370; J7030

== ENCOUNTER 2018-07-29 03:11 | Inpatient (IN) | payer BC ==
[2018-07-29] VITALS (8 sets, daily range): BP systolic 91–140; BP diastolic 52–73; PULSE 56–93; RESP 18–19; Ht 160 cm; Wt 52.3 kg
[~2018-07-29] VITALS: Ht 160 cm; Wt 52.3 kg
[~2018-07-29 03:11] MED LIST: ACET325T33 PO; ALBU90AE INHALATION; ASPI-817 PO; ATOR20TA38 PO; CLOP75TA27 PO; CYAN50TA PO; HYDR-4011 PO; LACT1CAP28 PO; LEVO50TA89 PO; LISI-313 PO; MAGN400T27 PO; METF-849 PO; METO-335 PO; MINE3.5O31 BOTH EYES; OMEG-135 PO; ONDA8TAB9 PO; PANT40TA3 PO; PROP30DR BOTH EYES; SODI650T PO; SULF-182 PO
[2018-07-29] MEDS ORDERED: FUROSEMIDE 20 MG INJ IV ONE ×2 (04:00→05:00)
[2018-07-29] MEDS ORDERED: morphine 4 MG/ML VIAL IV ONE (04:45)
[2018-07-29] MEDS ORDERED: ONDANSETRON 4 MG INJ IV ONE (04:46)
--- NOTE | 2018-07-29 04:57 | ERD ---
ER Documentation Chief Complaint Chief Complaint swelling both legs x4 weeks HPI This is a 67-year-old female with history of bilateral lower extremity edema, who presents for evaluation of increased lower extremity swelling and pain. About a month ago she was admitted for cellulitis, currently she denies shortness of breath. She does not have any chest pain. Her symptoms are constant. ROS All systems reviewed and are negative except as per history of present illness. Medications Home Meds Active Scripts Magnesium Oxide* (Mag-Oxide*) 400 Mg Tablet, 400 MG PO BID for 3 Days, #10 TAB Prov:FERNANDO YANCEY MD 07/08/18 Lactobacillus Rhamnosus GG (Culturelle) 1 Each Capsule, 1 CAP PO BID for 14 Days, #30 CAP Prov:FERNANDO YANCEY MD 07/08/18 Acetaminophen* (Tylenol*) 325 Mg Tablet, 650 MG PO Q6H PRN for .PAIN 1-3 OR TEMP for 10 Days, #10 TAB Prov:FERNANDO YANCEY MD 07/08/18 Lisinopril* (Lisinopril*) 5 Mg Tablet, 2.5 MG PO DAILY for 15 Days, #15 TAB Prov:FERNANDO YANCEY MD 07/08/18 Sulfamethoxazole/Trimethoprim (Sulfamethoxazole-Tmp Ds Tablet) 1 Each Tablet, 1 TAB PO BID for 5 Days, #10 TAB Prov:FERNANDO YANCEY MD 07/08/18 Reported Medications Sodium Bicarbonate* (Sodium Bicarbonate*) 650 Mg Tablet, 650 MG PO TID, TAB 07/05/18 Propylene Glycol-Peg 400 (Systane 0.3-0.4% Eye Drops) 0.3-0.4 % - 30 Ml Drops, 1 DROP BOTH EYES Q4H PRN for DRY EYES, #1 BOTTLE 07/05/18 Pantoprazole* (Protonix*) 40 Mg Tablet.dr, 40 MG PO QAM, TAB 07/05/18 Ondansetron Hcl* (Zofran*) 8 Mg Tablet, 8 MG PO Q6H PRN for NAUSEA AND OR VOMITING, TAB 07/05/18 Metoprolol Succinate* (Toprol XL*) 25 Mg Tab.sr.24h, 25 MG PO BID, #30 TAB 07/05/18 Metformin* (Glucophage*) 500 Mg Tab, 500 MG PO WITH BREAKFAST, #30 TAB 07/05/18 Levothyroxine Sodium* (Synthroid*) 50 Mcg Tablet, 50 MCG PO BEFORE BREAKFAST, #30 TAB 07/05/18 Hydrocodone/Acetaminophen ([place] 5-325 Tablet) 1 Each Tablet, 1 EACH PO Q6 PRN for PAIN, TAB 07/05/18 [place]-3 Fatty Acids/Fish Oil (Fish Oil 1,000 mg Capsule) 1 Each Capsule, 1 EACH PO DAILY, CAP 07/05/18 Cyanocobalamin* (Vitamin B-12*) 50 Mcg Tablet, 50 MCG PO DAILY, TAB 07/05/18 Clopidogrel Bisulfate (Clopidogrel) 75 Mg Tablet, 75 MG PO DAILY, #30 TAB 07/05/18 Atorvastatin Calcium* (Atorvastatin Calcium*) 20 Mg Tablet, 20 MG PO QHS, #30 TAB 07/05/18 Aspirin* (Aspirin* EC) 81 Mg Tablet.dr, 81 MG PO DAILY, TAB 07/05/18 Artificial Tears* (Akwa Oint*) 3.5 Gm Oint, 1 APPLIC BOTH EYES Q1H PRN for DRY EYES, #1 TUB 07/05/18 Albuterol Sulfate (Proair Respiclick) 90 Mcg Aer.pow.ba, 2 PUFFS INHALATION Q4 PRN for WHEEZING, BOTTLE 07/05/18 Allergies Allergies: Coded Allergies: levofloxacin (Verified Allergy, Unknown, 07/05/18) PMhx/Soc History of Surgery: Yes (endarterectomy RCA & LCA,vitrectomy R&L eye sx,cataract R eye sx) Anesthesia Reaction: No Hx Neurological Disorder: Yes (stroke with mild L side residual) Hx Respiratory Disorders: Yes Hx Cardiac Disorders: Yes Hx Psychiatric Problems: No Hx Miscellaneous Medical Probl: Yes (L eye tube implant,diabetes,GERD) Hx Alcohol Use: No Hx Substance Use: No Hx Tobacco Use: No Smoking Status: Never smoker Physical Exam Vitals Vital Signs Date Temp Pulse Resp B/P (MAP) Pulse Ox O2 O2 Flow FiO2 Time Delivery Rate 07/29/18 91 21 136/67 100 Room Air 05:00 (90) 07/29/18 96 22 148/71 100 Room Air 04:30 (96) 07/29/18 93 17 135/77 99 Room Air 04:00 (96) 07/29/18 97.2 96 18 141/66 100 03:16 (91) Physical Exam Const: Mild distress, well-developed well-nourished Head: Atraumatic Eyes: Normal Conjunctiva ENT: Normal External Ears, Nose and Mouth. Neck: Full range of motion. No meningismus. Resp: Clear to auscultation bilaterally Cardio: Regular rate and rhythm, no murmurs Abd: Soft, non tender, non distended. Normal bowel sounds Skin: No petechiae or rashes Back: No midline or flank tenderness Ext: There is 2+ pitting edema to the lower extremities, there is erythema noted. There is no crepitus. There are no fluctuant masses. Neur: Awake and alert Psych: Normal Mood and Affect Result Diagram: 07/29/1841707/29/18417 Results 24 hrs Laboratory Tests Test 07/29/18 04:18 07/29/18 04:53 White Blood Count 10.4 10^3/ul Red Blood Count 3.24 10^6/ul Hemoglobin 9.4 g/dl Hematocrit 28.9 % Mean Corpuscular Volume 89.2 fl Mean Corpuscular Hemoglobin 29.0 pg Mean Corpuscular Hemoglobin Concent 32.5 g/dl Red Cell Distribution Width 15.2 % Platelet Count 581 10^3/UL Mean Platelet Volume 8.8 fl Immature Granulocytes % 0.400 % Neutrophils % 66.3 % Lymphocytes % 19.9 % Monocytes % 10.2 % Eosinophils % 2.6 % Basophils % 0.6 % Nucleated Red Blood Cells % 0.0 /100WBC Immature Granulocytes # 0.040 10^3/ul Neutrophils # 6.9 10^3/ul Lymphocytes # 2.1 10^3/ul Monocytes # 1.1 10^3/ul Eosinophils # 0.3 10^3/ul Basophils # 0.1 10^3/ul Nucleated Red Blood Cells # 0.0 10^3/ul Erythrocyte Sedimentation Rate 75 mm/Hr Sodium Level 137 mmol/L Potassium Level 4.7 mmol/L Chloride Level 105 mmol/L Carbon Dioxide Level 22 mmol/L Anion Gap 10 Blood Urea Nitrogen 28 mg/dl Creatinine 1.50 mg/dl Est Glomerular Filtrat Rate mL/min 35 mL/min Glucose Level 112 mg/dl Calcium Level 9.5 mg/dl Total Bilirubin 0.4 mg/dl Direct Bilirubin 0.00 mg/dl Indirect Bilirubin 0.4 mg/dl Aspartate Amino Transf (AST/SGOT) 49 IU/L Alanine Aminotransferase (ALT/SGPT) 23 IU/L Alkaline Phosphatase 118 IU/L Troponin I < 0.012 ng/ml C-Reactive Protein 2.9 mg/dl B-Type Natriuretic Peptide 1260 PG/ML Total Protein 7.6 g/dl Albumin 3.8 g/dl Globulin 3.80 g/dl Albumin/Globulin Ratio 1.00 Urine Color STRAW Urine Clarity CLEAR Urine pH 7.0 Urine Specific [place] 1.006 Urine Ketones NEGATIVE mg/dL Urine Nitrite NEGATIVE mg/dL Urine Bilirubin NEGATIVE mg/dL Urine Urobilinogen NEGATIVE mg/dL Urine Leukocyte Esterase NEGATIVE Mary/ul Urine Hemoglobin NEGATIVE mg/dL Urine Glucose NEGATIVE mg/dL Urine Total Protein NEGATIVE mg/dl Current Medications Medications Dose Sig/[place] Start Time Status Last (Trade) Ordered Route PRN Stop Time Admin Dose Reason Admin Furosemide 20 mg ONCE ONCE 07/29/18 DC 07/29/18 (Lasix) IV 04:00 07/29/18 04:36 04:01 Furosemide 20 mg ONCE ONCE 07/29/18 DC (Lasix) IV 05:00 07/29/18 05:01 Morphine 4 mg ONCE ONCE 07/29/18 DC 07/29/18 Sulfate IV 04:45 07/29/18 04:58 (morphine) 04:46 Ondansetron 4 mg ONCE ONCE 07/29/18 DC 07/29/18 HCl (Zofran IV 04:46 07/29/18 04:58 Inj) 04:47 Procedures/MDM Is a 67-year-old female presents for evaluation of bilateral lower extremity edema. On exam, the patient had notable bilateral lower extremity edema, she had no fever, my primary concern that the patient could have CHF, additionally and I noted an acute kidney injury, which I suspect is mostly cardiorenal, she is given Lasix IV. It does not appear that she has been worked up from a cardiac standpoint, that she will be admitted for CHF evaluation. The patient and family were agreeable to plan of care. EKG: Rate/Rhythm: Normal Sinus Rhythm QRS, ST, T-waves: No changes consistent w/ acute ischemia Impression: No evidence of ischemia or arrhythmia Departure Diagnosis: Primary Impression: Swelling of both lower extremities Condition: Stable SD PRICE MD Jul 29, 2018 04:57
--- NOTE | 2018-07-29 06:29 | HP ---
Date/Time of Note Date/Time of Note DATE: 07/29/18 TIME: 06:06 Assessment/Plan VTE Prophylaxis SCD applied (from Nsg): Yes Pharmacological prophylaxis: LMWH Lines/Catheters IV Catheter Type (from Nrsg): Saline Lock Assessment/Plan Assessment/Plan 67 yo woman with history of stroke, peripheral vascular disease, NIDDM presents with new CHF. #CHF - Lower leg edema, orthopnea, paroxysmal nocturnal dyspnea. - Continue beta zandra, resume ACEi when Cr improves. - Will start gentle diuresis with lasix 20 IV BID - Ordered TTE #EDILMA - May be related to fluid overload - Diuresis as above - Hold ACEi for now. #Anorexia #Weight loss - Likely a combination of diabetic gastroparesis and PAD causing mesenteric ischemia - Patient has an outpatient GI appointment with Dr. Mariano. - May consider inpatient gastric emptying study. - Small frequent meals #Peripheral vascular disease - Continue aspirin, plavix - Patient has appointment with Dr. Maldonado on August 08 #Non-insulin dependent diabetes - Will hold metformin due to EDILMA - Sliding scale insulin - Check HgbA1C #Hypothyroid - Check TSH, continue home levothyroxine. DVT: lovenox GI: PPI Result Diagram: 07/29/18 0418 07/29/18 0418 HPI/ROS Admit Date/Time Admit Date/Time 29 July 2018 Hx of Present Illness Ms. Rausch is a woman with history of diabetes mellitus and PAD who presents with worsening SOB and lower leg edema. She was recently admitted 07/06 to 07/08 for left leg cellulitis. Also noted to have peripheral arterial disease. She finished a course of Bactrim at home. She now returns with her son with several complaints, most importantly worsening orthopnea and lower leg edema. Over the past few weeks she has had frequent episodes of paroxysmal nocturnal dyspnea. Previously was able to sleep flat, now has shortness of breath with two pillows. No chest pain or palpitations. She also has chronic anorexia associated with nausea after large meals. Her son estimates a 20 lb weight loss over 3 months. She alternates between constipation and mucinous diarrhea. She has a list of specialists she has appointments to see. Dr. Haja Maldonado on August 08, Dr. Igor Denis on August 03, Dr. Hermelindo Mariano (gastroenterology). In the ED the patient was afebrile, vitals stable. BNP was 1260, Cr 1.50, otherwise labs unremarkable. ROS She denies recent chills, fevers, night sweats, headache, dizziness, dysphagia, sore throat, cough, vomiting, abdominal pain, chest pain/pressure, palpitations, dysuria, hematuria. PMH/Family/Social Past Medical History Peripheral vascular disease Stroke in 2005 Dementia with hallucinations Non-insulin dependent diabetes Dyslipidemia Hypothyroidism Coded Allergies: levofloxacin (Verified Allergy, Unknown, 07/05/18) Past Surgical History Bilateral carotid endarterectomy 2011 and 2012 R eye vitrectomy, R eye cataract removal and artificial lens 2012 L eye vitrectomy, L eye cataract removal and artificial lens 2012. Social History Alcohol Use: none Smoking Status: Never smoker Drug Use: none Exam/Review of Systems Vital Signs Vitals Vital Signs Date Temp Pulse Resp B/P (MAP) Pulse Ox O2 O2 Flow FiO2 Time Delivery Rate 07/29/18 91 21 136/67 100 Room Air 05:00 (90) 07/29/18 97.2 03:16 Exam Exam Gen: Frail woman appearing older than stated age, lying in gurney no acute distress but very fidgety. Eyes: Pupils nonreactive bilaterally. L corneal opacity. HEENT: Moist mucous membranes, clear oropharynx Neck: Supple, no lymphadenopathy Card: Regular rate and rhythm, no murmur appreciated Pulm: Clear to auscultation bilaterally Abd: Soft, nondistended, nontender. No hepatosplenomegaly. Ext: 3+ bilateral LE pitting edema. Nonpalpable DP or PT pulses bilaterally but <2 sec capillary refill. Skin: warm, dry. Advanced onychomycosis of toes. TAN MAIER MD Jul 29, 2018 06:16
[2018-07-29] MEDS: PANTOPRAZOLE (EC) 40 MG TAB PO SCH (06:30)
[2018-07-29] MEDS ORDERED: NACL 0.9% 3 ML SYG IV SCH (06:30)
[2018-07-29] MEDS ORDERED: GLUCOSE GEL 15 GRAM TUBE PO PRN ×2 (07:00)
[2018-07-29] MEDS ORDERED: DEXTROSE 50% 50 ML SYRINGE IV PRN ×2 (07:00)
[2018-07-29] MEDS ORDERED: GLUCAGON 1 MG INJ IM PRN (07:00)
[2018-07-29] MEDS ORDERED: GLUCOSE GEL 15 GRAM TUBE BUCCAL PRN (07:00)
[2018-07-29] MEDS ORDERED: PROPYLENE GLYCOL/PEG 5 ML OPHTH DROPS BOTH EYES PRN (08:00)
[2018-07-29] MEDS ORDERED: OCULAR LUBRICANT 3.5 GM OPH OINT BOTH EYES PRN (08:00)
[2018-07-29] MEDS ORDERED: ALBUTEROL HFA 8 GM INHALER INH PRN (09:00)
[2018-07-29] MEDS: LEVOTHYROXINE 50 MCG TAB PO SCH (09:43)
[2018-07-29] MEDS: CLOPIDOGREL 75 MG TAB PO SCH (09:43)
[2018-07-29] MEDS: ASPIRIN (EC) 81 MG TAB PO SCH (09:43)
[2018-07-29] MEDS: ENOXAPARIN 30 MG/0.3 ML SYG SC SCH (09:51)
[2018-07-29] MEDS: INSULIN ASPART [NOVOLOG] 3 ML PEN SC SCH ×4 (09:51→20:28)
[2018-07-29] MEDS: CYANOCOBALAMIN 100 MCG TAB PO SCH (10:01)
[2018-07-29] MEDS: METOPROLOL (XL) 25 MG TAB PO SCH ×2 (10:01→20:28)
[2018-07-29] MEDS ORDERED: LORAZEPAM 2 MG INJ IV ONE (12:30)
--- NOTE | 2018-07-29 12:41 | PN ---
Date/Time of Note Date/Time of Note DATE: 07/29/18 TIME: 12:33 Assessment/Plan VTE Prophylaxis SCD applied (from Nsg): Yes Pharmacological prophylaxis: LMWH Lines/Catheters IV Catheter Type (from Nrsg): Saline Lock Urinary Cath still in place: No Assessment/Plan Hospital Course Assessment/Plan 1. CHF - Lower leg edema, orthopnea, paroxysmal nocturnal dyspnea. - optimize on cardiovascular medications. ACEI on hold due to edilma - continue diuresis - TTE result pending 2. EDILMA - avoid nephrotoxic medications - monitor renal panel 3. Anorexia/Weight loss - suspect combination of diabetic gastroparesis and PAD causing mesenteric ischemia - Patient has an outpatient GI appointment with Dr. Mariano. - Small frequent meals 4. Peripheral vascular disease - Continue aspirin, plavix - Patient has appointment with Dr. Maldonado on August 08 5. Non-insulin dependent diabetes - continue insulin regimen. will adjust as needed - HgbA1C result pending 6 Hypothyroid - Check TSH, continue levothyroxine. DISPO/PLAN: laxative added for reported constipation. f/u echo result. continue diuresis. anxiolytics prn. monitor renal panel. continue to monitor inhouse Discussed POC with Dr. Ascencio Result Diagram: 07/29/18 0418 07/29/18 041 Results 24hrs Laboratory Tests Test 07/29/18 04:18 07/29/18 04:53 07/29/18 07:26 07/29/18 09:41 White Blood Count 10.4 Red Blood Count 3.24 L Hemoglobin 9.4 L Hematocrit 28.9 L Mean Corpuscular Volume 89.2 Mean Corpuscular 29.0 Hemoglobin Mean Corpuscular 32.5 Hemoglobin Concent Red Cell Distribution 15.2 H Width Platelet Count 581 H Mean Platelet Volume 8.8 Immature Granulocytes % 0.400 Neutrophils % 66.3 Lymphocytes % 19.9 Monocytes % 10.2 Eosinophils % 2.6 Basophils % 0.6 Nucleated Red Blood 0.0 Cells % Immature Granulocytes # 0.040 H Neutrophils # 6.9 Lymphocytes # 2.1 Monocytes # 1.1 H Eosinophils # 0.3 Basophils # 0.1 Nucleated Red Blood 0.0 Cells # Erythrocyte 75 H Sedimentation Rate Sodium Level 137 Potassium Level 4.7 Chloride Level 105 Carbon Dioxide Level 22 Anion Gap 10 Blood Urea Nitrogen 28 H Creatinine 1.50 H Est Glomerular Filtrat 35 L Rate mL/min Glucose Level 112 Calcium Level 9.5 Total Bilirubin 0.4 Direct Bilirubin 0.00 Indirect Bilirubin 0.4 Aspartate Amino 49 H Transf (AST/SGOT) Alanine 23 Aminotransferase (ALT/SG PT) Alkaline Phosphatase 118 Troponin I < 0.012 C-Reactive Protein 2.9 H B-Type Natriuretic 1260 H Peptide Total Protein 7.6 Albumin 3.8 Globulin 3.80 H Albumin/Globulin Ratio 1.00 Urine Color STRAW Urine Clarity CLEAR Urine pH 7.0 Urine Specific [place] 1.006 Urine Ketones NEGATIVE Urine Nitrite NEGATIVE Urine Bilirubin NEGATIVE Urine Urobilinogen NEGATIVE Urine Leukocyte Esterase NEGATIVE Urine Hemoglobin NEGATIVE Urine Glucose NEGATIVE Urine Total Protein NEGATIVE Bedside Glucose 115 161 Subjective 24 Hr Interval Summary Free Text/Dictation seen on room air. is anxious during visit. RN at bedside Exam/Review of Systems Exam Vitals Vital Signs Date Temp Pulse Resp B/P (MAP) Pulse Ox O2 O2 Flow FiO2 Time Delivery Rate 07/29/18 97.6 81 18 140/58 100 Room Air 11:41 (85) Constitutional: alert Psych: anxiety Head: normocephalic Neck: supple, non-tender Respiratory: diminished breath sounds Cardiovascular: other (regular rat ) Gastrointestinal: soft, non-tender Musculoskeletal: swelling (ble, more notable on rle ) Neurological: nl mental status, nl speech Skin: other (brownish discoloration rle ) Results Results 24hrs Laboratory Tests Test 07/29/18 04:18 07/29/18 04:53 07/29/18 07:26 07/29/18 09:41 White Blood Count 10.4 Red Blood Count 3.24 L Hemoglobin 9.4 L Hematocrit 28.9 L Mean Corpuscular Volume 89.2 Mean Corpuscular 29.0 Hemoglobin Mean Corpuscular 32.5 Hemoglobin Concent Red Cell Distribution 15.2 H Width Platelet Count 581 H Mean Platelet Volume 8.8 Immature Granulocytes % 0.400 Neutrophils % 66.3 Lymphocytes % 19.9 Monocytes % 10.2 Eosinophils % 2.6 Basophils % 0.6 Nucleated Red Blood 0.0 Cells % Immature Granulocytes # 0.040 H Neutrophils # 6.9 Lymphocytes # 2.1 Monocytes # 1.1 H Eosinophils # 0.3 Basophils # 0.1 Nucleated Red Blood 0.0 Cells # Erythrocyte 75 H Sedimentation Rate Sodium Level 137 Potassium Level 4.7 Chloride Level 105 Carbon Dioxide Level 22 Anion Gap 10 Blood Urea Nitrogen 28 H Creatinine 1.50 H Est Glomerular Filtrat 35 L Rate mL/min Glucose Level 112 Calcium Level 9.5 Total Bilirubin 0.4 Direct Bilirubin 0.00 Indirect Bilirubin 0.4 Aspartate Amino 49 H Transf (AST/SGOT) Alanine 23 Aminotransferase (ALT/SG PT) Alkaline Phosphatase 118 Troponin I < 0.012 C-Reactive Protein 2.9 H B-Type Natriuretic 1260 H Peptide Total Protein 7.6 Albumin 3.8 Globulin 3.80 H Albumin/Globulin Ratio 1.00 Urine Color STRAW Urine Clarity CLEAR Urine pH 7.0 Urine Specific [place] 1.006 Urine Ketones NEGATIVE Urine Nitrite NEGATIVE Urine Bilirubin NEGATIVE Urine Urobilinogen NEGATIVE Urine Leukocyte Esterase NEGATIVE Urine Hemoglobin NEGATIVE Urine Glucose NEGATIVE Urine Total Protein NEGATIVE Bedside Glucose 115 161 Medications Medication Current Medications IV Flush (NS 3 ml) 3 ml PER PROTOCOL IV ; Start 07/29/18 at 06:30 Ondansetron HCl (Zofran Inj) 4 mg Q6H PRN IV NAUSEA/VOMITING; Start 07/29/18 at 06:30 Acetaminophen (Tylenol Tab) 650 mg Q6H PRN PO .PAIN 1-3 OR TEMP; Start 07/29/18 at 06:30 Acetaminophen/ Hydrocodone Bitart ([place] (5/325)) 1 tab Q6H PRN PO .MOD PAIN 4- 6; Start 07/29/18 at 06:30 Pantoprazole (Protonix Tab) 40 mg DAILY@06 PO ; Start 07/29/18 at 06:30 Enoxaparin Sodium (Lovenox) 30 mg DAILY SC Last administered on 07/29/18at 09:51; Admin Dose 30 MG; Start 07/29/18 at 09:00 Diagnostic Test (Pha) (Accu-Chek) 1 ea 02 XX ; Start 07/30/18 at 02:00 Insulin Aspart (Novolog Insulin Pen) NOVOLOG *MODERATE* ALGORITHM WITH MEALS BEDTIME SC Last administered on 07/29/18at 09:51; Admin Dose 2 UNIT; Start 07/29/18 at 07:55 Acetaminophen (Tylenol Tab) 650 mg Q6H PRN PO .PAIN 1-3 OR TEMP; Start 07/29/18 at 07:00 Eye Lubricant (Akwa Oint) 1 applic Q1H PRN BOTH EYES DRY EYES; Start 07/29/18 at 08:00 Aspirin (Halfprin) 81 mg DAILY PO Last administered on 07/29/18at 09:43; Admin Dose 81 MG; Start 07/29/18 at 09:00 Atorvastatin Calcium (Lipitor) 20 mg QHS PO ; Start 07/29/18 at 21:00 Clopidogrel Bisulfate (plaVIX) 75 mg DAILY PO Last administered on 07/29/18at 09:43; Admin Dose 75 MG; Start 07/29/18 at 09:00 Cyanocobalamin (Vitamin B12) 50 mcg DAILY PO Last administered on 07/29/18at 10:01; Admin Dose 50 MCG; Start 07/29/18 at 09:00 Levothyroxine Sodium (Synthroid) 50 mcg BEFORE BREAKFAST PO Last administered on 07/29/18at 09:43; Admin Dose 50 MCG; Start 07/29/18 at 07:00 Metoprolol Succinate (Toprol Xl) 25 mg BID PO Last administered on 07/29/18at 10:01; Admin Dose 25 MG; Start 07/29/18 at 09:00 Polyethyl Glycol/ Propylene Glycol (Systane 0.3-0.4% Eye Drops) 1 drop Q4H PRN BOTH EYES DRY EYES; Start 07/29/18 at 08:00 Albuterol (Ventolin Hfa) 2 puff Q4H RESP THERAPY PRN INH WHEEZING; Start at 09:00 Miscellaneous Information 1 ea NOTE XX ; Start 07/29/18 at 07:00 Glucose (Glutose) 15 gm Q15M PRN PO DECREASED GLUCOSE; Start 07/29/18 at 07:00 Glucose (Glutose) 22.5 gm Q15M PRN PO DECREASED GLUCOSE; Start 07/29/18 at 07:00 Dextrose (D50w Syringe) 25 ml Q15M PRN IV DECREASED GLUCOSE; Start 07/29/18 at 07:00 Dextrose (D50w Syringe) 50 ml Q15M PRN IV DECREASED GLUCOSE; Start 07/29/18 at 07:00 Glucagon (Glucagen) 1 mg Q15M PRN IM DECREASED GLUCOSE; Start 07/29/18 at 07:00 Glucose (Glutose) 15 gm Q15M PRN BUCCAL DECREASED GLUCOSE; Start 07/29/18 at 07:00 Furosemide (Lasix) 20 mg BID DIURETICS IV ; Start 07/29/18 at 15:00 Alprazolam (Xanax) 0.25 mg Q8H PRN PO ANXIETY; Start 07/29/18 at 12:30 Polyethylene Glycol (Miralax) 17 gm DAILY PO ; Start 07/29/18 at 12:30 FIDE MAGUIRE NP Jul 29, 2018 12:41
[2018-07-29] MEDS: POLYETHYLENE GLYCOL 17 GM PACKET PO SCH (13:25)
[2018-07-29] MEDS: FUROSEMIDE 20 MG INJ IV SCH ×2 (16:09→17:42)
[2018-07-29] MEDS: ATORVASTATIN 20 MG TAB PO SCH (20:32)
[2018-07-29] MEDS: ALPRAZOLAM 0.25 MG TAB PO PRN (20:32)
[2018-07-30] VITALS (10 sets, daily range): BP systolic 103–132; BP diastolic 48–80; PULSE 50–91; RESP 18–20
[2018-07-30] MEDS: ACCU-CHEK XX SCH (01:01)
[2018-07-30] MEDS: PANTOPRAZOLE (EC) 40 MG TAB PO SCH (05:36)
[2018-07-30] MEDS: FUROSEMIDE 20 MG INJ IV SCH ×2 (05:36→17:05)
[2018-07-30] MEDS: LEVOTHYROXINE 50 MCG TAB PO SCH (06:08)
[2018-07-30] MEDS: INSULIN ASPART [NOVOLOG] 3 ML PEN SC SCH ×4 (07:48→20:34)
[2018-07-30] MEDS: METOPROLOL (XL) 25 MG TAB PO SCH ×2 (08:31→20:35)
[2018-07-30] MEDS: CLOPIDOGREL 75 MG TAB PO SCH (08:31)
[2018-07-30] MEDS: CYANOCOBALAMIN 100 MCG TAB PO SCH (08:31)
[2018-07-30] MEDS: POLYETHYLENE GLYCOL 17 GM PACKET PO SCH (08:31)
[2018-07-30] MEDS: ASPIRIN (EC) 81 MG TAB PO SCH (08:31)
[2018-07-30] MEDS: ENOXAPARIN 30 MG/0.3 ML SYG SC SCH (08:33)
--- NOTE | 2018-07-30 14:33 | PN ---
Date/Time of Note Date/Time of Note DATE: 07/30/18 TIME: 14:26 Assessment/Plan VTE Prophylaxis Risk score (from Ns)>0 risk: 7 SCD applied (from Ns): Yes Pharmacological prophylaxis: LMWH Lines/Catheters IV Catheter Type (from Nrs): Saline Lock Urinary Cath still in place: No Assessment/Plan Hospital Course Assessment/Plan 1. CHF - Lower leg edema, orthopnea, paroxysmal nocturnal dyspnea - improving - optimize on cardiovascular medications. ACEI on hold due to edilma - continue diuresis - TTE result pending 2. EDILMA - avoid nephrotoxic medications - monitor renal panel - appears to be improving 3. Anorexia/Weight loss - suspect combination of diabetic gastroparesis and PAD causing mesenteric ischemia - Patient has an outpatient GI appointment with Dr. Mariano. - Small frequent meals 4. Peripheral vascular disease - Continue aspirin, plavix - Patient has appointment with Dr. Maldonado on August 08 5. Non-insulin dependent diabetes - continue insulin regimen. will adjust as needed - HgbA1C: 6.3 6 Hypothyroid - continue levothyroxine. DISPO/PLAN: echo pending. continue with PT. plan for possible snf upon d/c./ will f/u case management. Transfer to med/surg Discussed POC with Dr. Grover Result Diagram: 07/30/18 0608 07/30/18 0608 Results 24hrs Laboratory Tests Test 07/29/18 17:35 07/29/18 20:25 07/30/18 06:08 07/30/18 07:42 Bedside Glucose 117 170 133 White Blood Count 8.0 # Red Blood Count 3.50 L Hemoglobin 9.8 L Hematocrit 31.5 L Mean Corpuscular Volume 90.0 Mean Corpuscular 28.0 L Hemoglobin Mean Corpuscular 31.1 L Hemoglobin Concent Red Cell Distribution 15.2 H Width Platelet Count 668 H Mean Platelet Volume 9.1 Immature Granulocytes % 0.400 Neutrophils % 62.6 Lymphocytes % 21.4 Monocytes % 10.8 Eosinophils % 4.0 Basophils % 0.8 Nucleated Red Blood 0.0 Cells % Immature Granulocytes # 0.030 Neutrophils # 5.0 Lymphocytes # 1.7 Monocytes # 0.9 Eosinophils # 0.3 Basophils # 0.1 Nucleated Red Blood 0.0 Cells # Sodium Level 139 Potassium Level 5.1 Chloride Level 106 Carbon Dioxide Level 26 Anion Gap 7 Blood Urea Nitrogen 26 H Creatinine 1.40 H Est Glomerular Filtrat 37 L Rate mL/min Glucose Level 105 Hemoglobin A1c 6.3 H Calcium Level 9.8 Phosphorus Level 5.1 H Magnesium Level 1.9 Total Bilirubin 0.4 Direct Bilirubin 0.00 Indirect Bilirubin 0.4 Aspartate Amino 44 Transf (AST/SGOT) Alanine 18 Aminotransferase (ALT/SG PT) Alkaline Phosphatase 109 Total Protein 7.0 Albumin 3.6 Globulin 3.40 H Albumin/Globulin Ratio 1.05 Thyroid Stimulating 3.820 Hormone (TSH) Test 07/30/18 11:38 Bedside Glucose 118 Subjective 24 Hr Interval Summary Free Text/Dictation comfortable at present. seen on room air. reports less swelling in legs Exam/Review of Systems Exam Vitals Vital Signs Date Temp Pulse Resp B/P (MAP) Pulse Ox O2 O2 Flow FiO2 Time Delivery Rate 07/30/18 82 12:01 07/30/18 97.4 18 123/53 100 Room Air 11:14 (76) Intake and Output 07/29/18 07/29/18 07/30/18 1515:00 23:00 07:00 IntakeIntake Total 800 ml OutputOutput Total 750 ml BalanceBalance 50 ml Exam Constitutional: alert Psych: anxiety Head: normocephalic Neck: supple, non-tender Respiratory: diminished breath sounds Cardiovascular: other (regular rat ) Gastrointestinal: soft, non-tender Musculoskeletal: swelling (ble, more notable on rle, little less today ) Neurological: nl mental status, nl speech Skin: other (brownish discoloration rle ) Results Results 24hrs Laboratory Tests Test 07/29/18 17:35 07/29/18 20:25 07/30/18 06:08 07/30/18 07:42 Bedside Glucose 117 170 133 White Blood Count 8.0 # Red Blood Count 3.50 L Hemoglobin 9.8 L Hematocrit 31.5 L Mean Corpuscular Volume 90.0 Mean Corpuscular 28.0 L Hemoglobin Mean Corpuscular 31.1 L Hemoglobin Concent Red Cell Distribution 15.2 H Width Platelet Count 668 H Mean Platelet Volume 9.1 Immature Granulocytes % 0.400 Neutrophils % 62.6 Lymphocytes % 21.4 Monocytes % 10.8 Eosinophils % 4.0 Basophils % 0.8 Nucleated Red Blood 0.0 Cells % Immature Granulocytes # 0.030 Neutrophils # 5.0 Lymphocytes # 1.7 Monocytes # 0.9 Eosinophils # 0.3 Basophils # 0.1 Nucleated Red Blood 0.0 Cells # Sodium Level 139 Potassium Level 5.1 Chloride Level 106 Carbon Dioxide Level 26 Anion Gap 7 Blood Urea Nitrogen 26 H Creatinine 1.40 H Est Glomerular Filtrat 37 L Rate mL/min Glucose Level 105 Hemoglobin A1c 6.3 H Calcium Level 9.8 Phosphorus Level 5.1 H Magnesium Level 1.9 Total Bilirubin 0.4 Direct Bilirubin 0.00 Indirect Bilirubin 0.4 Aspartate Amino 44 Transf (AST/SGOT) Alanine 18 Aminotransferase (ALT/SG PT) Alkaline Phosphatase 109 Total Protein 7.0 Albumin 3.6 Globulin 3.40 H Albumin/Globulin Ratio 1.05 Thyroid Stimulating 3.820 Hormone (TSH) Test 07/30/18 11:38 Bedside Glucose 118 Medications Medication Current Medications IV Flush (NS 3 ml) 3 ml PER PROTOCOL IV ; Start 07/29/18 at 06:30 Ondansetron HCl (Zofran Inj) 4 mg Q6H PRN IV NAUSEA/VOMITING; Start 07/29/18 at 06:30 Acetaminophen (Tylenol Tab) 650 mg Q6H PRN PO .PAIN 1-3 OR TEMP; Start 07/29/18 at 06:30 Acetaminophen/ Hydrocodone Bitart ([place] (5/325)) 1 tab Q6H PRN PO .MOD PAIN 4- 6; Start 07/29/18 at 06:30 Pantoprazole (Protonix Tab) 40 mg DAILY@06 PO Last administered on 07/30/18at 05:36; Admin Dose 40 MG; Start 07/29/18 at 06:30 Enoxaparin Sodium (Lovenox) 30 mg DAILY SC Last administered on 07/30/18at 08:33; Admin Dose 30 MG; Start 07/29/18 at 09:00 Diagnostic Test (Pha) (Accu-Chek) 1 ea 02 XX ; Start 07/30/18 at 02:00 Insulin Aspart (Novolog Insulin Pen) NOVOLOG *MODERATE* ALGORITHM WITH MEALS BEDTIME SC Last administered on 07/29/18at 09:51; Admin Dose 2 UNIT; Start 07/29/18 at 07:55 Acetaminophen (Tylenol Tab) 650 mg Q6H PRN PO .PAIN 1-3 OR TEMP; Start 07/29/18 at 07:00 Eye Lubricant (Akwa Oint) 1 applic Q1H PRN BOTH EYES DRY EYES; Start 07/29/18 at 08:00 Aspirin (Halfprin) 81 mg DAILY PO Last administered on 07/30/18 08:31; Admin Dose 81 MG; Start 07/29/18 at 09:00 Atorvastatin Calcium (Lipitor) 20 mg QHS PO Last administered on 07/29/18at 20:32; Admin Dose 20 MG; Start 07/29/18 at 21:00 Clopidogrel Bisulfate (plaVIX) 75 mg DAILY PO Last administered on 07/30/18 08:31; Admin Dose 75 MG; Start 07/29/18 at 09:00 Cyanocobalamin (Vitamin B12) 50 mcg DAILY PO Last administered on 07/30/18 08:31; Admin Dose 50 MCG; Start 07/29/18 at 09:00 Levothyroxine Sodium (Synthroid) 50 mcg BEFORE BREAKFAST PO Last administered on 07/30/18 06:08; Admin Dose 50 MCG; Start 07/29/18 at 07:00 Metoprolol Succinate (Toprol Xl) 25 mg BID PO Last administered on 07/30/18 08:31; Admin Dose 25 MG; Start 07/29/18 at 09:00 Polyethyl Glycol/ Propylene Glycol (Systane 0.3-0.4% Eye Drops) 1 drop Q4H PRN BOTH EYES DRY EYES; Start 07/29/18 at 08:00 Albuterol (Ventolin Hfa) 2 puff Q4H RESP THERAPY PRN INH WHEEZING; Start 07/29/18 at 09:00 Miscellaneous Information 1 ea NOTE XX ; Start 07/29/18 at 07:00 Glucose (Glutose) 15 gm Q15M PRN PO DECREASED GLUCOSE; Start 07/29/18 at 07:00 Glucose (Glutose) 22.5 gm Q15M PRN PO DECREASED GLUCOSE; Start 07/29/18 at 07:00 Dextrose (D50w Syringe) 25 ml Q15M PRN IV DECREASED GLUCOSE; Start 07/29/18 at 07:00 Dextrose (D50w Syringe) 50 ml Q15M PRN IV DECREASED GLUCOSE; Start 07/29/18 at 07:00 Glucagon (Glucagen) 1 mg Q15M PRN IM DECREASED GLUCOSE; Start 07/29/18 at 07:00 Glucose (Glutose) 15 gm Q15M PRN BUCCAL DECREASED GLUCOSE; Start 07/29/18 at 07:00 Furosemide (Lasix) 20 mg BID DIURETICS IV Last administered on 07/29/18at 17:42; Admin Dose 20 MG; Start 07/29/18 at 15:00 Alprazolam (Xanax) 0.25 mg Q8H PRN PO ANXIETY Last administered on 07/29/18 20: 32; Admin Dose 0.25 MG; Start 07/29/18 at 12:30 Polyethylene Glycol (Miralax) 17 gm DAILY PO Last administered on 07/30/18at 08:31; Admin Dose 17 GM; Start 07/29/18 at 12:30 FIDE MAGUIRE NP Jul 30, 2018 14:33
[2018-07-30] MEDS: ATORVASTATIN 20 MG TAB PO SCH (20:34)
[2018-07-30] MEDS: ALPRAZOLAM 0.25 MG TAB PO PRN (21:57)
[2018-07-31] MEDS: ACCU-CHEK XX SCH (01:16)
[2018-07-31 02:11] VITALS: BP 129/62; PULSE 79; RESP 18
[2018-07-31] MEDS ORDERED: ZOLPIDEM 5 MG TAB PO ONE (03:00)
[2018-07-31] MEDS: LEVOTHYROXINE 50 MCG TAB PO SCH (06:22)
[2018-07-31] MEDS: PANTOPRAZOLE (EC) 40 MG TAB PO SCH (06:22)
[2018-07-31] MEDS: FUROSEMIDE 20 MG INJ IV SCH ×2 (06:23→17:17)
[2018-07-31 07:56] VITALS: BP 101/53; PULSE 85; RESP 18
[2018-07-31] MEDS: INSULIN ASPART [NOVOLOG] 3 ML PEN SC SCH ×4 (08:00→21:00)
[2018-07-31 08:35] VITALS: BP 112/64; PULSE 88
[2018-07-31] MEDS: ASPIRIN (EC) 81 MG TAB PO SCH (08:35)
[2018-07-31] MEDS: CLOPIDOGREL 75 MG TAB PO SCH (08:35)
[2018-07-31] MEDS: METOPROLOL (XL) 25 MG TAB PO SCH ×2 (08:36→21:33)
[2018-07-31] MEDS: CYANOCOBALAMIN 100 MCG TAB PO SCH (08:36)
[2018-07-31] MEDS: POLYETHYLENE GLYCOL 17 GM PACKET PO SCH (08:37)
[2018-07-31] MEDS: ENOXAPARIN 30 MG/0.3 ML SYG SC SCH (08:40)
--- NOTE | 2018-07-31 12:20 | PN ---
Date/Time of Note Date/Time of Note DATE: 07/31/18 TIME: 12:17 Assessment/Plan VTE Prophylaxis Risk score (from Ns)>0 risk: 5 SCD applied (from Ns): Yes Pharmacological prophylaxis: LMWH Lines/Catheters IV Catheter Type (from Nrs): Saline Lock Urinary Cath still in place: No Assessment/Plan Hospital Course Assessment/Plan 1. CHF - Lower leg edema, orthopnea, paroxysmal nocturnal dyspnea - improving - optimize on cardiovascular medications. ACEI on hold due to edilma - continue diuresis - echo is pending - consider cardiology consult pending results 2. EDILMA - avoid nephrotoxic medications - monitor renal panel - appears to be improving 3. Anorexia/Weight loss - Patient has an outpatient GI appointment with Dr. Mariano. - Small frequent meals 4. Peripheral vascular disease - Continue aspirin, plavix - Patient has appointment with Dr. Maldonado on August 08 - Surgeon notified about patient's hospitalization 5. Non-insulin dependent diabetes - continue insulin regimen. will adjust as needed - HgbA1C: 6.3 6 Hypothyroid - continue levothyroxine. DISPO/PLAN: echo pending. discussed case with patient's son Rk. tentative plan for snf vs. home with [facility]. Will f/u PT recommendations Discussed POC with Dr. Grover Result Diagram: 07/31/18 0525 07/31/18 0524 Results 24hrs Laboratory Tests Test 07/30/18 16:47 07/30/18 20:32 07/31/18 05:24 07/31/18 05:25 Bedside Glucose 139 155 Sodium Level 138 Potassium Level 4.5 Chloride Level 104 Carbon Dioxide Level 22 Anion Gap 12 Blood Urea Nitrogen 28 H Creatinine 1.41 H Est Glomerular Filtrat 37 L Rate mL/min Glucose Level 143 Calcium Level 10.0 White Blood Count 8.9 Red Blood Count 3.65 L Hemoglobin 10.4 L Hematocrit 32.2 L Mean Corpuscular Volume 88.2 Mean Corpuscular 28.5 L Hemoglobin Mean Corpuscular 32.3 Hemoglobin Concent Red Cell Distribution 14.9 H Width Platelet Count 680 H Mean Platelet Volume 9.1 Immature Granulocytes % 0.300 Neutrophils % 63.8 Lymphocytes % 24.0 Monocytes % 9.7 Eosinophils % 1.9 Basophils % 0.3 Nucleated Red Blood 0.0 Cells % Immature Granulocytes # 0.030 Neutrophils # 5.6 Lymphocytes # 2.1 Monocytes # 0.9 Eosinophils # 0.2 Basophils # 0.0 Nucleated Red Blood 0.0 Cells # Test 07/31/18 08:22 Bedside Glucose 111 Subjective 24 Hr Interval Summary Free Text/Dictation confused during visit, but suspect patient has some underlying dementia.denies any pain. no s/s of distress Exam/Review of Systems Exam Vitals Vital Signs Date Temp Pulse Resp B/P (MAP) Pulse Ox O2 O2 Flow FiO2 Time Delivery Rate 07/31/18 88 112/64 08:35 (80) 07/31/18 98.0 18 100 07:56 07/30/18 Room Air 18:50 Intake and Output 07/30/18 07/30/18 07/31/18 1515:00 23:00 07:00 IntakeIntake Total 800 ml OutputOutput Total 600 ml BalanceBalance 200 ml Constitutional: alert; No oriented Psych: anxiety Head: normocephalic Neck: supple, non-tender Respiratory: diminished breath sounds Cardiovascular: other (regular rate ) Gastrointestinal: soft, non-tender Musculoskeletal: swelling (ble, more notable rle with brownish discoloration rle ) Neurological: nl speech; No nl mental status Results Results 24hrs Laboratory Tests Test 07/30/18 16:47 07/30/18 20:32 07/31/18 05:24 07/31/18 05:25 Bedside Glucose 139 155 Sodium Level 138 Potassium Level 4.5 Chloride Level 104 Carbon Dioxide Level 22 Anion Gap 12 Blood Urea Nitrogen 28 H Creatinine 1.41 H Est Glomerular Filtrat 37 L Rate mL/min Glucose Level 143 Calcium Level 10.0 White Blood Count 8.9 Red Blood Count 3.65 L Hemoglobin 10.4 L Hematocrit 32.2 L Mean Corpuscular Volume 88.2 Mean Corpuscular 28.5 L Hemoglobin Mean Corpuscular 32.3 Hemoglobin Concent Red Cell Distribution 14.9 H Width Platelet Count 680 H Mean Platelet Volume 9.1 Immature Granulocytes % 0.300 Neutrophils % 63.8 Lymphocytes % 24.0 Monocytes % 9.7 Eosinophils % 1.9 Basophils % 0.3 Nucleated Red Blood 0.0 Cells % Immature Granulocytes # 0.030 Neutrophils # 5.6 Lymphocytes # 2.1 Monocytes # 0.9 Eosinophils # 0.2 Basophils # 0.0 Nucleated Red Blood 0.0 Cells # Test 07/31/18 08:22 Bedside Glucose 111 Medications Medication Current Medications IV Flush (NS 3 ml) 3 ml PER PROTOCOL IV ; Start 07/29/18 at 06:30 Ondansetron HCl (Zofran Inj) 4 mg Q6H PRN IV NAUSEA/VOMITING; Start 07/29/18 at 06:30 Acetaminophen (Tylenol Tab) 650 mg Q6H PRN PO .PAIN 1-3 OR TEMP; Start 07/29/18 at 06:30 Acetaminophen/ Hydrocodone Bitart ([place] (5/325)) 1 tab Q6H PRN PO .MOD PAIN 4- 6; Start 07/29/18 at 06:30 Pantoprazole (Protonix Tab) 40 mg DAILY@06 PO Last administered on 07/31/18at 06:22; Admin Dose 40 MG; Start 07/29/18 at 06:30 Enoxaparin Sodium (Lovenox) 30 mg DAILY SC Last administered on 07/31/18at 08:40; Admin Dose 30 MG; Start 07/29/18 at 09:00 Diagnostic Test (Pha) (Accu-Chek) 1 ea 02 XX ; Start 07/30/18 at 02:00 Insulin Aspart (Novolog Insulin Pen) NOVOLOG *MODERATE* ALGORITHM WITH MEALS BEDTIME SC Last administered on 07/29/18at 09:51; Admin Dose 2 UNIT; Start 07/29/18 at 07:55 Acetaminophen (Tylenol Tab) 650 mg Q6H PRN PO .PAIN 1-3 OR TEMP; Start 07/29/18 at 07:00 Eye Lubricant (Akwa Oint) 1 applic Q1H PRN BOTH EYES DRY EYES; Start 07/29/18 at 08:00 Aspirin (Halfprin) 81 mg DAILY PO Last administered on 07/31/18 08:35; Admin Dose 81 MG; Start 07/29/18 at 09:00 Atorvastatin Calcium (Lipitor) 20 mg QHS PO Last administered on 07/30/18 20: 34; Admin Dose 20 MG; Start 07/29/18 at 21:00 Clopidogrel Bisulfate (plaVIX) 75 mg DAILY PO Last administered on 07/31/18 08:35; Admin Dose 75 MG; Start 07/29/18 at 09:00 Cyanocobalamin (Vitamin B12) 50 mcg DAILY PO Last administered on 07/31/18 08:36; Admin Dose 50 MCG; Start 07/29/18 at 09:00 Levothyroxine Sodium (Synthroid) 50 mcg BEFORE BREAKFAST PO Last administered on 07/31/18 06:22; Admin Dose 50 MCG; Start 07/29/18 at 07:00 Metoprolol Succinate (Toprol Xl) 25 mg BID PO Last administered on 07/31/18 08:36; Admin Dose 25 MG; Start 07/29/18 at 09:00 Polyethyl Glycol/ Propylene Glycol (Systane 0.3-0.4% Eye Drops) 1 drop Q4H PRN BOTH EYES DRY EYES; Start 07/29/18 at 08:00 Albuterol (Ventolin Hfa) 2 puff Q4H RESP THERAPY PRN INH WHEEZING; Start 07/29/18 at 09:00 Miscellaneous Information 1 ea NOTE XX ; Start 07/29/18 at 07:00 Glucose (Glutose) 15 gm Q15M PRN PO DECREASED GLUCOSE; Start 07/29/18 at 07:00 Glucose (Glutose) 22.5 gm Q15M PRN PO DECREASED GLUCOSE; Start 07/29/18 at 07:00 Dextrose (D50w Syringe) 25 ml Q15M PRN IV DECREASED GLUCOSE; Start 07/29/18 at 07:00 Dextrose (D50w Syringe) 50 ml Q15M PRN IV DECREASED GLUCOSE; Start 07/29/18 at 07:00 Glucagon (Glucagen) 1 mg Q15M PRN IM DECREASED GLUCOSE; Start 07/29/18 at 07:00 Glucose (Glutose) 15 gm Q15M PRN BUCCAL DECREASED GLUCOSE; Start 07/29/18 at 07:00 Furosemide (Lasix) 20 mg BID DIURETICS IV Last administered on 07/31/18 06:23; Admin Dose 20 MG; Start 07/29/18 at 15:00 Alprazolam (Xanax) 0.25 mg Q8H PRN PO ANXIETY Last administered on 07/30/18 21:57; Admin Dose 0.25 MG; Start 07/29/18 at 12:30 Polyethylene Glycol (Miralax) 17 gm DAILY PO Last administered on 07/31/18 08:37; Admin Dose 17 GM; Start 07/29/18 at 12:30 FIDE MAGUIRE NP Jul 31, 2018 12:20
[2018-07-31 14:34] VITALS: BP 146/56; PULSE 90; RESP 18
[2018-07-31] MEDS: ACETAMINOPHEN 325 MG TAB PO PRN (17:25)
[2018-07-31] MEDS ORDERED: MAGNESIUM HYDROXIDE 30ML CUP PO PRN (20:00)
--- NOTE | 2018-07-31 20:08 | RADRPT ---
Echocardiogram Report Patient Name: Fozia NAYAKnt ID: [id number] : 1950 (68y )Study Date: 07/31/2018 11:36:36 AM Gender: FAccession #: [id number] Tech: [place] Location: [facility] Ref.Physician: FIDE MAGUIRE Height(Cm): BSA: Weight(Kg): Quality: AdequateOrder Physician: FIDE MAGUIRE Account #: Procedures: Echocardiographic Report: Transthoracic echocardiogram with complete 2D, M-Mode, and doppler examination. Indications: Congestive Heart Failure. Measurements: 2D/M Mode Doppler Measurement Value Normal Range Measurement Value Normal Range LVIDd 2D 3.8 [ 3.8 - 5.2 ] cm AV Peak Hunter 1.5 [ 100.0 - 170.0 ] cm/sec LVIDs 2D 2.0 [ 2.2 - 3.5 ] cm AV Peak PG 9.0 [ 2.0 - 9.0 ] mmHg LVPWd 2D 0.8 [ 0.6 - 0.9 ] cm LVOT Peak Hunter 1.1 [ 70.0 - 110.0 ] cm/sec IVSd 2D 0.8 [ 0.6 - 0.9 ] cm LVOT Peak PG 5.0 [ 2.0 - 6.0 ] mmHg AoR Diam 2D 2.6 [ 2.3 - 3.1 ] cm MV E Peak Hunter 0.5 [ 60.0 - 130.0 ] cm/sec EDV 2D 63.9 [ 46.0 - 106.0 ] ml MV A Peak Hunter 1.0 [ 100.0 - 120.0 ] cm/sec ESV 2D 12.7 [ 14.0 - 42.0 ] ml MV E/A 0.5 [ 0.8 - 1.5 ] ratio EF 2D 80.1 [ 54.0 - 74.0 ] percent MV Decel Time 144 [ 104 - 258 ] msec LA Dimen 2D 2.5 [ 2.7 - 3.8 ] cm Lat E` Hunter 0.1 [ 10.0 - 15.0 ] cm/sec Lateral E/E` 8.1 [ 1.0 - 2.0 ] ratio MV E/A 0.5 [ 0.8 - 1.5 ] ratio Findings: Left Ventricle: Hyperdynamic left ventricular systolic function. Normal left ventricular cavity size. Normal left ventricular wall thickness. Ejection fraction is visually estimated at 70 %. Tissue Doppler/Mitral Doppler indices are consistent with impaired relaxation (Stage I diastolic dysfunction). Right Ventricle: Normal right ventricular size. Normal right ventricular systolic function. Left Atrium: The left atrium is normal in size. Right Atrium: The right atrium is normal in size. Mitral Valve: Normal appearance of the mitral valve. No mitral valve regurgitation is seen. Aortic Valve: Normal appearance of the aortic valve. No significant aortic stenosis or insufficiency. Tricuspid Valve: Normal appearance of the tricuspid valve. Unable to obtain RVSP due to minimal presence of tricuspid regurgitation. Pulmonic Valve: Pulmonic valve not well visualized. Pericardium: Normal pericardium with no significant pericardial effusion. Aorta: Normal aortic root. IVC: Normal size and normal respiratory collapse consistent with normal right atrial pressure. Conclusions: Normal left ventricular systolic function. Grade 1 diastolic dysfunction. No significant valvular abnromalities seen. Electronically Signed By: Andreia Arroyo 2018-07-31 20:08:37 PDT
[2018-07-31] MEDS ORDERED: DIPHENHYDRAMINE 25 MG CAP PO ONE (20:15)
[2018-07-31 20:20] VITALS: BP 130/63; PULSE 89; RESP 18
[2018-07-31] MEDS: ATORVASTATIN 20 MG TAB PO SCH (21:28)
[2018-07-31] MEDS: ALPRAZOLAM 0.25 MG TAB PO PRN (21:29)
[2018-07-31] MEDS: DOCUSATE SODIUM 100 MG CAP PO SCH (21:29)
[2018-08-01] MEDS: ACCU-CHEK XX SCH (01:13)
[2018-08-01 02:04] VITALS: BP 117/54; PULSE 94; RESP 18
[2018-08-01] MEDS: FUROSEMIDE 20 MG INJ IV SCH ×2 (05:34→18:00)
[2018-08-01] MEDS: PANTOPRAZOLE (EC) 40 MG TAB PO SCH (05:35)
[2018-08-01] MEDS: LEVOTHYROXINE 50 MCG TAB PO SCH (05:35)
[2018-08-01 07:57] VITALS: BP 96/47; PULSE 90; RESP 17
--- NOTE | 2018-08-01 08:34 | PN ---
Date/Time of Note Date/Time of Note DATE: 08/01/18 TIME: 08:33 Assessment/Plan Lines/Catheters IV Catheter Type (from [facility]): Saline Lock [place] in Place (from [facility]): No Assessment/Plan Chief Complaint/Hosp Course will obtain lower extremity arterial studies. Can be discharged and follow up as outpt. Subjective 24 Hr Interval Summary Constitutional: no complaints Exam/Review of Systems Vital Signs Vitals Vital Signs Date Temp Pulse Resp B/P (MAP) Pulse Ox O2 O2 Flow FiO2 Time Delivery Rate 08/01/18 98.6 90 17 96/47 (63) 97 Room Air 07:57 Intake and Output 07/31/18 07/31/18 08/01/18 1515:00 23:00 07:00 IntakeIntake Total 500 ml BalanceBalance 500 ml Exam Constitutional: alert, oriented Psych: no complaints Head: normocephalic, atraumatic Eyes: nl conjunctiva Neck: supple, non-tender Respiratory: clear to auscultation Cardiovascular: regular rate and rhythm, nl pulses, edema Gastrointestinal: soft, nl liver, spleen, non-tender Musculoskeletal: nl extremities to inspection Extremities: edema Results Result Diagram: 08/01/18 0504 08/01/18 0504 ANIYA HAJI MD Aug 01, 2018 08:34
[2018-08-01] MEDS: INSULIN ASPART [NOVOLOG] 3 ML PEN SC SCH ×4 (08:53→20:55)
[2018-08-01] MEDS: ENOXAPARIN 30 MG/0.3 ML SYG SC SCH (08:53)
[2018-08-01] MEDS: METOPROLOL (XL) 25 MG TAB PO SCH ×2 (08:54→20:54)
[2018-08-01] MEDS: CLOPIDOGREL 75 MG TAB PO SCH (08:54)
[2018-08-01] MEDS: ASPIRIN (EC) 81 MG TAB PO SCH (08:54)
[2018-08-01] MEDS: DOCUSATE SODIUM 100 MG CAP PO SCH ×2 (08:54→20:54)
[2018-08-01] MEDS: CYANOCOBALAMIN 100 MCG TAB PO SCH (08:55)
[2018-08-01] MEDS: POLYETHYLENE GLYCOL 17 GM PACKET PO SCH (08:56)
--- NOTE | 2018-08-01 10:11 | PN ---
Date/Time of Note Date/Time of Note DATE: 08/01/18 TIME: 10:06 Assessment/Plan VTE Prophylaxis Risk score (from Nsg)>0 risk: 4 SCD applied (from Nsg): Yes Pharmacological prophylaxis: LMWH Lines/Catheters IV Catheter Type (from Nrsg): Saline Lock Urinary Cath still in place: No Assessment/Plan Hospital Course Assessment/Plan 1. PAD - Lower leg edema, orthopnea, paroxysmal nocturnal dyspnea - improving - optimize on cardiovascular medications. ACEI on hold due to edilma - continue diuresis - echo: EF at 70% with stage 1 diastolic dysfunction 2. EDILMA - avoid nephrotoxic medications - monitor renal panel - improving 3. Anorexia/Weight loss - Patient has an outpatient GI appointment with Dr. Mariano. - Small frequent meals - CT abdomen ordered for abd pain 4. Peripheral vascular disease - Continue aspirin, plavix - Patient has appointment with Dr. Maldonado on August 08 - Surgeon notified about patient's hospitalization - plan for arterial study today 5. Non-insulin dependent diabetes - continue insulin regimen. will adjust as needed - HgbA1C: 6.3 6 Hypothyroid - continue levothyroxine. DISPO/PLAN: Normal EF. plan for CT abdomen for abdomen pain. f/u arterial studies per vascular surgeon. Discussed POC with Dr. Grover ADDENDUM: Reviewed CT imaging results. Will get gynecological consultation. Further recommendations pending clinical course. Result Diagram: 08/01/18 0504 08/01/18 0504 Results 24hrs Laboratory Tests Test 07/31/18 12:54 07/31/18 17:09 07/31/18 21:32 08/01/18 05:04 Bedside Glucose 163 157 155 White Blood Count 15.0 #H Red Blood Count 3.05 L Hemoglobin 8.9 L Hematocrit 26.7 L Mean Corpuscular Volume 87.5 Mean Corpuscular 29.2 Hemoglobin Mean Corpuscular 33.3 Hemoglobin Concent Red Cell Distribution 15.2 H Width Platelet Count 605 H Mean Platelet Volume 9.3 Immature Granulocytes % 0.500 H Neutrophils % 79.8 H Lymphocytes % 10.3 L Monocytes % 9.1 Eosinophils % 0.1 Basophils % 0.2 Nucleated Red Blood 0.0 Cells % Immature Granulocytes # 0.080 H Neutrophils # 11.9 H Lymphocytes # 1.6 Monocytes # 1.4 H Eosinophils # 0.0 Basophils # 0.0 Nucleated Red Blood 0.0 Cells # Sodium Level 138 Potassium Level 4.3 Chloride Level 105 Carbon Dioxide Level 23 Anion Gap 10 Blood Urea Nitrogen 33 H Creatinine 1.32 H Est Glomerular Filtrat 40 L Rate mL/min Glucose Level 175 Calcium Level 9.4 Test 08/01/18 08:06 Bedside Glucose 158 Subjective 24 Hr Interval Summary Free Text/Dictation Reports having some abdominal pain. Reports shortness of breath. Per nurse patient is not eating much. Exam/Review of Systems Exam Vitals Vital Signs Date Temp Pulse Resp B/P (MAP) Pulse Ox O2 O2 Flow FiO2 Time Delivery Rate 08/01/18 98.6 90 17 96/47 (63) 97 Room Air 07:57 Intake and Output 07/31/18 07/31/18 08/01/18 1515:00 23:00 07:00 IntakeIntake Total 500 ml BalanceBalance 500 ml Exam Constitutional: alert; No oriented Psych: anxiety Head: normocephalic Neck: supple, non-tender Respiratory: diminished breath sounds Cardiovascular: other (regular rate ) Gastrointestinal: soft, minimally tender on palpation Musculoskeletal: swelling (ble, more notable rle with brownish discoloration rle ) little less Neurological: nl speech; No nl mental status Results Results 24hrs Laboratory Tests Test 07/31/18 12:54 07/31/18 17:09 07/31/18 21:32 08/01/18 05:04 Bedside Glucose 163 157 155 White Blood Count 15.0 #H Red Blood Count 3.05 L Hemoglobin 8.9 L Hematocrit 26.7 L Mean Corpuscular Volume 87.5 Mean Corpuscular 29.2 Hemoglobin Mean Corpuscular 33.3 Hemoglobin Concent Red Cell Distribution 15.2 H Width Platelet Count 605 H Mean Platelet Volume 9.3 Immature Granulocytes % 0.500 H Neutrophils % 79.8 H Lymphocytes % 10.3 L Monocytes % 9.1 Eosinophils % 0.1 Basophils % 0.2 Nucleated Red Blood 0.0 Cells % Immature Granulocytes # 0.080 H Neutrophils # 11.9 H Lymphocytes # 1.6 Monocytes # 1.4 H Eosinophils # 0.0 Basophils # 0.0 Nucleated Red Blood 0.0 Cells # Sodium Level 138 Potassium Level 4.3 Chloride Level 105 Carbon Dioxide Level 23 Anion Gap 10 Blood Urea Nitrogen 33 H Creatinine 1.32 H Est Glomerular Filtrat 40 L Rate mL/min Glucose Level 175 Calcium Level 9.4 Test 08/01/18 08:06 Bedside Glucose 158 Medications Medication Current Medications IV Flush (NS 3 ml) 3 ml PER PROTOCOL IV ; Start 07/29/18 at 06:30 Ondansetron HCl (Zofran Inj) 4 mg Q6H PRN IV NAUSEA/VOMITING; Start 07/29/18 at 06:30 Acetaminophen (Tylenol Tab) 650 mg Q6H PRN PO .PAIN 1-3 OR TEMP Last administered on 07/31/18at 17:25; Admin Dose 650 MG; Start 07/29/18 at 06:30 Acetaminophen/ Hydrocodone Bitart ([place] (5/325)) 1 tab Q6H PRN PO .MOD PAIN 4- 6; Start 07/29/18 at 06:30 Pantoprazole (Protonix Tab) 40 mg DAILY@06 PO Last administered on 08/01/18at 05:35; Admin Dose 40 MG; Start 07/29/18 at 06:30 Enoxaparin Sodium (Lovenox) 30 mg DAILY SC Last administered on 08/01/18 08:53; Admin Dose 30 MG; Start 07/29/18 at 09:00 Diagnostic Test (Pha) (Accu-Chek) 1 ea 02 XX ; Start 07/30/18 at 02:00 Insulin Aspart (Novolog Insulin Pen) NOVOLOG *MODERATE* ALGORITHM WITH MEALS BEDTIME SC Last administered on 08/01/18 08:53; Admin Dose 2 UNIT; Start at 07:55 Acetaminophen (Tylenol Tab) 650 mg Q6H PRN PO .PAIN 1-3 OR TEMP; Start 07/29/18 at 07:00 Eye Lubricant (Akwa Oint) 1 applic Q1H PRN BOTH EYES DRY EYES; Start 07/29/18 at 08:00 Aspirin (Halfprin) 81 mg DAILY PO Last administered on 08/01/18 08:54; Admin Dose 81 MG; Start 07/29/18 at 09:00 Atorvastatin Calcium (Lipitor) 20 mg QHS PO Last administered on 07/31/18 21:28; Admin Dose 20 MG; Start 07/29/18 at 21:00 Clopidogrel Bisulfate (plaVIX) 75 mg DAILY PO Last administered on 08/01/18 08:54; Admin Dose 75 MG; Start 07/29/18 at 09:00 Cyanocobalamin (Vitamin B12) 50 mcg DAILY PO Last administered on 08/01/18 08:55; Admin Dose 50 MCG; Start 07/29/18 at 09:00 Levothyroxine Sodium (Synthroid) 50 mcg BEFORE BREAKFAST PO Last administered on 08/01/18at 05:35; Admin Dose 50 MCG; Start 07/29/18 at 07:00 Metoprolol Succinate (Toprol Xl) 25 mg BID PO Last administered on 07/31/18at 21:33; Admin Dose 25 MG; Start 07/29/18 at 09:00 Polyethyl Glycol/ Propylene Glycol (Systane 0.3-0.4% Eye Drops) 1 drop Q4H PRN BOTH EYES DRY EYES; Start 07/29/18 at 08:00 Albuterol (Ventolin Hfa) 2 puff Q4H RESP THERAPY PRN INH WHEEZING; Start 07/29/18 at 09:00 Miscellaneous Information 1 ea NOTE XX ; Start 07/29/18 at 07:00 Glucose (Glutose) 15 gm Q15M PRN PO DECREASED GLUCOSE; Start 07/29/18 at 07:00 Glucose (Glutose) 22.5 gm Q15M PRN PO DECREASED GLUCOSE; Start 07/29/18 at 07:00 Dextrose (D50w Syringe) 25 ml Q15M PRN IV DECREASED GLUCOSE; Start 07/29/18 at 07:00 Dextrose (D50w Syringe) 50 ml Q15M PRN IV DECREASED GLUCOSE; Start 07/29/18 at 07:00 Glucagon (Glucagen) 1 mg Q15M PRN IM DECREASED GLUCOSE; Start 07/29/18 at 07:00 Glucose (Glutose) 15 gm Q15M PRN BUCCAL DECREASED GLUCOSE; Start 07/29/18 at 07:00 Furosemide (Lasix) 20 mg BID DIURETICS IV Last administered on 08/01/18 05:34; Admin Dose 20 MG; Start 07/29/18 at 15:00 Alprazolam (Xanax) 0.25 mg Q8H PRN PO ANXIETY Last administered on 07/31/18at 21:29; Admin Dose 0.25 MG; Start 07/29/18 at 12:30 Polyethylene Glycol (Miralax) 17 gm DAILY PO Last administered on 6/4/19at 08:37; Admin Dose 17 GM; Start 07/29/18 at 12:30 Docusate Sodium (Colace) 100 mg BID PO Last administered on 08/01/18 08:54; Admin Dose 100 MG; Start 07/31/18 at 21:00 Magnesium Hydroxide (Milk Of Mag) 30 ml Q12H PRN PO STOMACH UPSET/CRAMPING Last administered on 07/31/18 21:28; Admin Dose 30 ML; Start 07/31/18 at 20:00 FIDE MAGUIRE NP Aug 01, 2018 10:11
--- NOTE | 2018-08-01 11:42 | CONS ---
DATE OF ADMISSION: 07/29/2018 DATE OF CONSULTATION: 07/30/2018 TYPE OF CONSULTATION: VASCULAR SURGERY CONSULTATION Dear Doctors: Ms. Rausch is a 68-year-old female who presented with congestive heart failure to [facility] and during hospitalization has been being managed for that with our primary service. Vascul ar consult has been obtained for further evaluation as the patient has history of bilateral lower ext remity edema and nonpalpable pedal pulses. The patient is an established patient to be seen by our o ffice on 08/08. At the moment, the patient denies complains of shortness of breath, mild chest pain, no nausea, vomiting, no acute extremity rest pain. REVIEW OF SYSTEMS: A 14-point review performed and negative except what is mentioned in the HPI. PAST MEDICAL HISTORY: Entails congestive heart failure, unspecified type, acute renal failure, weigh t loss, bilateral lower extremity atherosclerosis with claudication, bilateral lower extremity venous insufficiency, diabetes, hypothyroid, history of a left leg cellulitis. PAST SURGICAL HISTORY: Entails bilateral carotid endarterectomy in 2011 and 2012, right eye vitrecto my, right eye cataract surgery, left eye vitrectomy and left eye cataract surgery. FAMILY HISTORY: Positive for hypertension. SOCIAL HISTORY: Denies current tobacco, alcohol or illicit drug use. PHYSICAL EXAMINATION: GENERAL: Alert and oriented x3, having some difficulty with breathing. HEENT: Pupils are not reactive bilaterally. Normocephalic, atraumatic. Mucosa moist. NECK: Supple, no carotid bruit. Surgical scar well healed. CARDIOVASCULAR: S1, S2 present. PULMONARY: Coarse breath sounds bilaterally. No crackles. ABDOMEN: Soft, nontender, nondistended, positive bowel sounds positive. EXTREMITIES: Right lower extremity palpable femoral pulse, nonpalpable pedal pulse. Motor and senso ry intact. Cap refill 3 seconds. Edema 2+. Presence of lipodermatosclerosis. Left lower extremity palpable femoral pulse, nonpalpable pedal pulse. Motor and sensory intact. Cap refill 3 to 4 secon ds, presence of lipodermatosclerosis. ASSESSMENT AND PLAN: 1. Bilateral lower extremity atherosclerosis with claudication: It seems the patient has a longstan ding history of lower extremity ambulatory limitations with pain in her calves bilaterally. Further, the patient has nonpalpable pedal pulses. We will plan to obtain bilateral lower extremity arterial ultrasound studies to evaluate her infrainguinal atherosclerotic disease progression. 2. Bilateral lower extremity edema and venous insufficiency: It seems the patient has component of mixed disease (venous and arterial insufficiency). We will plan to obtain bilateral lower extremity venous as an outpatient. No current intervention. During rest recommend for the patient to el evate her lower extremities. Eventual transition to compression therapy. 3. Optimize vascular status (diet, nutrition, exercise, sugar control, antiplatelets). Discussed findings, plan and management with the patient and she understands all that is involved. A certified public improvement inspector present. Thank you for allowing us to participate in the care of your patient. Call with any questions. Dictated By: ANIYA CASTAÑEDA/EMA Conf#: [id number] DID#: [id number] CC: TAN MAIER MD;*EndCC*
[2018-08-01 14:34] VITALS: BP 97/52; PULSE 86; RESP 17
[2018-08-01 20:00] VITALS: BP 109/60; PULSE 84; RESP 18
[2018-08-01] MEDS: ATORVASTATIN 20 MG TAB PO SCH (20:54)
[2018-08-01] MEDS: ALPRAZOLAM 0.25 MG TAB PO PRN (21:01)
[2018-08-02] MEDS: ACCU-CHEK XX SCH (01:45)
[2018-08-02 02:00] VITALS: BP 122/76; PULSE 83; RESP 18
[2018-08-02] MEDS: PANTOPRAZOLE (EC) 40 MG TAB PO SCH (06:14)
[2018-08-02] MEDS: LEVOTHYROXINE 50 MCG TAB PO SCH (06:14)
[2018-08-02] MEDS: FUROSEMIDE 20 MG INJ IV SCH (06:15)
[2018-08-02 07:46] VITALS: BP 95/51; PULSE 87; RESP 18
[2018-08-02] MEDS: POLYETHYLENE GLYCOL 17 GM PACKET PO SCH (08:47)
[2018-08-02] MEDS: CLOPIDOGREL 75 MG TAB PO SCH (08:48)
[2018-08-02] MEDS: CYANOCOBALAMIN 100 MCG TAB PO SCH (08:48)
[2018-08-02] MEDS: DOCUSATE SODIUM 100 MG CAP PO SCH ×2 (08:48→21:00)
[2018-08-02] MEDS: ASPIRIN (EC) 81 MG TAB PO SCH (08:48)
[2018-08-02] MEDS: METOPROLOL (XL) 25 MG TAB PO SCH ×2 (08:48→21:00)
[2018-08-02] MEDS: INSULIN ASPART [NOVOLOG] 3 ML PEN SC SCH ×4 (08:50→21:19)
[2018-08-02] MEDS: ENOXAPARIN 30 MG/0.3 ML SYG SC SCH (08:52)
--- NOTE | 2018-08-02 10:25 | PN ---
Date/Time of Note Date/Time of Note DATE: 08/02/18 TIME: 10:18 Assessment/Plan VTE Prophylaxis Risk score (from Nsg)>0 risk: 4 SCD applied (from Nsg): Yes Pharmacological prophylaxis: LMWH Lines/Catheters IV Catheter Type (from Nrsg): Saline Lock Urinary Cath still in place: No Assessment/Plan Hospital Course Assessment/Plan 1. PAD - Lower leg edema, orthopnea, paroxysmal nocturnal dyspnea - improving - optimize on cardiovascular medications. ACEI on hold due to edilma - continue diuresis - echo: EF at 70% with stage 1 diastolic dysfunction 2. EDILMA - avoid nephrotoxic medications - monitor renal panel - improving 3. Anorexia/Weight loss - Patient has an outpatient GI appointment with Dr. Mariano. - Small frequent meals 4. Peripheral vascular disease - Continue aspirin, plavix - Patient has appointment with Dr. Maldonado on August 08 - Surgeon notified about patient's hospitalization 5. Non-insulin dependent diabetes - continue insulin regimen. will adjust as needed - HgbA1C: 6.3 6 Hypothyroid - continue levothyroxine. DISPO/PLAN: Gynecological eval is pending. operations intelligence was consulted. Awaiting renal u.s. will get dietitian for nutrition recs. Discussed POC with Dr. Grover Result Diagram: 08/01/18 0504 08/01/18 0504 Results 24hrs Laboratory Tests Test 08/01/18 13:55 08/01/18 17:38 08/01/18 20:54 08/02/18 08:10 Bedside Glucose 110 186 153 177 Subjective 24 Hr Interval Summary Free Text/Dictation reports eating better today. no reported abd pain Exam/Review of Systems Exam Vitals Vital Signs Date Temp Pulse Resp B/P (MAP) Pulse Ox O2 O2 Flow FiO2 Time Delivery Rate 08/02/18 97.7 87 18 95/51 (66) 91 07:46 08/02/18 Room Air 02:00 Intake and Output 08/01/18 08/01/18 08/02/18 1515:00 23:00 07:00 IntakeIntake Total 120 ml 240 ml BalanceBalance 120 ml 240 ml Exam Constitutional: alert; No oriented Psych: anxiety Head: normocephalic Neck: supple, non-tender Respiratory: diminished breath sounds Cardiovascular: other (regular rate ) Gastrointestinal: soft, minimally tender on palpation Musculoskeletal: swelling ble, more on rle Neurological: nl speech; No nl mental status Results Results 24hrs Laboratory Tests Test 08/01/18 13:55 08/01/18 17:38 08/01/18 20:54 08/02/18 08:10 Bedside Glucose 110 186 153 177 Medications Medication Current Medications IV Flush (NS 3 ml) 3 ml PER PROTOCOL IV ; Start 07/29/18 at 06:30 Ondansetron HCl (Zofran Inj) 4 mg Q6H PRN IV NAUSEA/VOMITING; Start 07/29/18 at 06:30 Acetaminophen (Tylenol Tab) 650 mg Q6H PRN PO .PAIN 1-3 OR TEMP Last administered on 07/31/18 17:25; Admin Dose 650 MG; Start 07/29/18 at 06:30 Acetaminophen/ Hydrocodone Bitart ([place] (5/325)) 1 tab Q6H PRN PO .MOD PAIN 4- 6; Start 07/29/18 at 06:30 Pantoprazole (Protonix Tab) 40 mg DAILY@06 PO Last administered on 08/02/18at 06:14; Admin Dose 40 MG; Start 07/29/18 at 06:30 Enoxaparin Sodium (Lovenox) 30 mg DAILY SC Last administered on 08/02/18 08:52; Admin Dose 30 MG; Start 07/29/18 at 09:00 Diagnostic Test (Pha) (Accu-Chek) 1 ea 02 XX ; Start 07/30/18 at 02:00 Insulin Aspart (Novolog Insulin Pen) NOVOLOG *MODERATE* ALGORITHM WITH MEALS BEDTIME SC Last administered on 08/02/18at 08:50; Admin Dose 2 UNIT; Start 07/29/18 at 07:55 Acetaminophen (Tylenol Tab) 650 mg Q6H PRN PO .PAIN 1-3 OR TEMP; Start 07/29/18 at 07:00 Eye Lubricant (Akwa Oint) 1 applic Q1H PRN BOTH EYES DRY EYES; Start 07/29/18 at 08:00 Aspirin (Halfprin) 81 mg DAILY PO Last administered on 08/02/18 08:48; Admin Dose 81 MG; Start 07/29/18 at 09:00 Atorvastatin Calcium (Lipitor) 20 mg QHS PO Last administered on 08/01/18at 20:54; Admin Dose 20 MG; Start 07/29/18 at 21:00 Clopidogrel Bisulfate (plaVIX) 75 mg DAILY PO Last administered on 08/02/18 08:48; Admin Dose 75 MG; Start 07/29/18 at 09:00 Cyanocobalamin (Vitamin B12) 50 mcg DAILY PO Last administered on 08/02/18 08:48; Admin Dose 50 MCG; Start 07/29/18 at 09:00 Levothyroxine Sodium (Synthroid) 50 mcg BEFORE BREAKFAST PO Last administered on 08/02/18 06:14; Admin Dose 50 MCG; Start 07/29/18 at 07:00 Metoprolol Succinate (Toprol Xl) 25 mg BID PO Last administered on 08/01/18 20:54; Admin Dose 25 MG; Start 07/29/18 at 09:00 Polyethyl Glycol/ Propylene Glycol (Systane 0.3-0.4% Eye Drops) 1 drop Q4H PRN BOTH EYES DRY EYES; Start 07/29/18 at 08:00 Albuterol (Ventolin Hfa) 2 puff Q4H RESP THERAPY PRN INH WHEEZING; Start 07/29/18 at 09:00 Miscellaneous Information 1 ea NOTE XX ; Start 07/29/18 at 07:00 Glucose (Glutose) 15 gm Q15M PRN PO DECREASED GLUCOSE; Start 07/29/18 at 07:00 Glucose (Glutose) 22.5 gm Q15M PRN PO DECREASED GLUCOSE; Start 07/29/18 at 07:00 Dextrose (D50w Syringe) 25 ml Q15M PRN IV DECREASED GLUCOSE; Start 07/29/18 at 07:00 Dextrose (D50w Syringe) 50 ml Q15M PRN IV DECREASED GLUCOSE; Start 07/29/18 at 07:00 Glucagon (Glucagen) 1 mg Q15M PRN IM DECREASED GLUCOSE; Start 07/29/18 at 07:00 Glucose (Glutose) 15 gm Q15M PRN BUCCAL DECREASED GLUCOSE; Start 07/29/18 at 07:00 Alprazolam (Xanax) 0.25 mg Q8H PRN PO ANXIETY Last administered on 08/01/18at 21:01; Admin Dose 0.25 MG; Start 07/29/18 at 12:30 Polyethylene Glycol (Miralax) 17 gm DAILY PO Last administered on 08/02/18 08:47; Admin Dose 17 GM; Start 07/29/18 at 12:30 Docusate Sodium (Colace) 100 mg BID PO Last administered on 08/02/18at 08:48; Admin Dose 100 MG; Start 07/31/18 at 21:00 Magnesium Hydroxide (Milk Of Mag) 30 ml Q12H PRN PO STOMACH UPSET/CRAMPING Last administered on 07/31/18at 21:28; Admin Dose 30 ML; Start 07/31/18 at 20:00 Furosemide (Lasix) 20 mg DAILY IV ; Start 08/03/18 at 09:00 FIDE MAGUIRE NP Aug 02, 2018 10:25
--- NOTE | 2018-08-02 10:50 | CONS ---
DATE OF ADMISSION: 07/29/2018 DATE OF CONSULTATION: 08/02/2018 TYPE OF CONSULTATION: Nephrology REQUESTING PHYSICIAN: REASON FOR CONSULTATION: Acute kidney injury, possible CKD. HISTORY OF PRESENT ILLNESS: This is a 68-year-old female with a past medical history of diabetes, hi story of peripheral arterial disease who presents to [facility] with shortness of b reath, lower extremity edema. The patient upon arrival to the emergency room had imaging studies per formed including lower extremity Doppler which was negative for DVT. The patient was subsequently ad mitted to med/surg for evaluation. The patient was subsequently diagnosed with CHF, was started on d iuretic therapy, was seen by senior buyer. The patient continued to have lower extremity pain, was s een by vascular surgery for possible peripheral vascular disease and ongoing foot ischemia. The celia ent has a CT scan of abdomen and pelvis which showed evidence of lesions in liver. In terms of patient's renal history, on admission, the patient had a creatinine of 1.50 mg/dL which h as slowly been improving during the hospital course. The patient's previous creatinine in 06/2018 wa s 0.8 mg/dL. There are no reports of any hemoptysis, hematemesis, hematochezia. PAST MEDICAL HISTORY: History of diabetes, history of peripheral arterial disease, history of hypert ension, history of CVA, history of GERD. PAST SURGICAL HISTORY: Status post endarterectomy, status post cataract surgery. SOCIAL HISTORY: Does not drink, smoke or do drugs. MEDICATIONS: The patient's medications have been reviewed. REVIEW OF SYSTEMS: A 14-point review of systems was conducted. Pertinent positives stated in HPI, o therwise negative. PHYSICAL EXAMINATION: VITAL SIGNS: Blood pressure is 95/51, respirations 18, pulse 87, temperature 97.7. HEENT: Head is normocephalic. NECK: Supple. HEART: Regular rate. LUNGS: Show diminished breath sounds at the base. ABDOMEN: Soft, nontender to palpation without rebound or guarding. EXTREMITIES: Negative for clubbing, cyanosis. Positive edema. DERMATOLOGIC: No rashes. MUSCULOSKELETAL: No joint effusion. NEUROLOGIC: No focal deficits reviewed. LABORATORY DATA: Has been reviewed. ASSESSMENT AND PLAN: This is a 68-year-old female who presents with: 1. Nonoliguric acute kidney injury with previously normal baseline creatinine of 0.69 mg/dL. Etiolo gy of EDILMA is likely secondary to hemodynamics, diuretics, DELBERT inhibitor effect. Other possibilities such as tubular injury, acute vasculitis or interstitial nephritis is less likely given the patient's clinical presentation. Urine and the patient's bland urinary sediment. Recommendation at this poin t is to monitor and follow up renal panel. We will deescalate diuretic therapy to Lasix 20 mg once d aily. Otherwise, continue supportive care, renally dose all meds, avoid nephrotoxins. With further recommend any MRI with contrast to be deferred until the patient's acute kidney injury has resolved o r creatinine has noted to have stabilized. 2. Anemia. Continue to monitor H and H levels. 3. Mineral bone disorder. Monitor calcium and phosphorus levels. 4. Peripheral arterial disease. Continue current medical management. Follow up with vascular surge ry. 5. Volume overload. The patient has noted lower extremity edema. The patient's 2D echo was reviewe d, showed preserved ejection fraction. The patient is currently on low dose diuretic therapy. We wi ll monitor closely monitor renal function, electrolytes closely. 6. Anorexia and weight loss. Continue to monitor. CT scan does show questionable lesions in the li angelita, unclear etiology. Continue workup per primary team, follow up with GI. 7. Diabetes. Continue current insulin regimen. 8. Hypothyroidism. Continue Synthroid. 9. Venous insufficiency. Will continue to monitor. Continue leg elevation. Follow up with vascula r surgery. Thank you for this interesting consult. It will be a pleasure to follow patient with you elenita stern the hospital course. Dictated By: JACOB BROCK DO NR/NTS Conf#: [id number] DID#: [id number] CC: TAN MAIER MD;*EndCC*
[2018-08-02] MEDS: ACETAMINOPHEN 325 MG TAB PO PRN ×2 (11:53→21:17)
--- NOTE | 2018-08-02 12:23 | PN ---
Date/Time of Note Date/Time of Note DATE: 08/02/18 TIME: 12:22 Assessment/Plan Lines/Catheters IV [facility] Type (from [facility] Saline Lock [place] in Place (from Nrs): No Assessment/Plan Chief Complaint/Hosp Course -lower extremity arterial studies have been noted. -Can be discharged and follow up as outpt. Exam/Review of Systems Vital Signs Vitals Vital Signs Date Temp Pulse Resp B/P (MAP) Pulse Ox O2 O2 Flow FiO2 Time Delivery Rate 08/02/18 97.7 87 18 95/51 (66) 91 07:46 08/02/18 Room Air 02:00 Intake and Output 08/01/18 08/01/18 08/02/18 1515:00 23:00 07:00 IntakeIntake Total 120 ml 240 ml BalanceBalance 120 ml 240 ml Results Result Diagram: 08/01/18 0504 08/01/18 0504 ANIYA HAJI MD Aug 02, 2018 12:23
[2018-08-02 14:48] VITALS: BP 106/63; PULSE 85; RESP 18
--- NOTE | 2018-08-02 15:53 | CONS ---
Assessment/Plan Assessment/Plan Hospital Course (Demo Recall) 68-year-old female postmenopausal Pelvic mass, CT showed evidence of lymphadenopathy. Thickened endometrial lining noted in pelvic enlarged uterus, ultrasound which is abnormal for postmenopausal woman, Patient needs complete HANDCREW FOREMAN evaluation. In the context of pelvic mass, pelvic lymphadenopathy and liver lesion questionable for possible metastases and Rt pleural effusion as well as possibility of metastatic cancer cannot be ruled out. HANDCREW FOREMAN origin is a question. Need to proceed with endometrial biopsy, tumor markers including Ca1 25 and CA-19-9 which is ordered Imaging can not r/o leiomyosarcoma,. imaging including MRI of the abdomen and pelvis recommended, She is a candidate for D&C if she medically cleared for above procedure HANDCREW FOREMAN oncology consultation recommended. Consultation Date/Type/Reason Admit Date/Time 29 July 2018 Type of Consult HANDCREW FOREMAN consultation Reason for Consultation HANDCREW FOREMAN evaluation Date/Time of Note DATE: 08/02/18 TIME: 15:35 Hx of Present Illness I was consulted to evaluate this 68-year-old female who admitted to the hospital with complaint bilateral lower extremity swelling that has been worsend recently. Patient also was noted to have a pelvic mass in CT of abdomen and pelvis with thickened heterogeneous endometrium. Patient is postmenopausal. Complain of weight loss. Past medical history significant for multiple comorbidities including history of a stroke, mfo-[id number] diabetes mellitus, peripheral vascular disease and hypothyroidism. Reports menopause since age 44. Denies any history of postmenopausal bleeding. She denies any history of ovarian cyst or fibroid. Patient denies any pelvic pain abdominal pain or pressure symptoms. Denies any history of gynecologic problem. Reports bloating symptoms. Chest imaging consistent with bilateral pleural effusion. Patient currently being followed and managed by medicine team. CT of the abdomen and pelvic consistent with adnexal masses and thickened heterogeneous endometrium as well as enlarged uterus. Subjective hx not possible: other (Patient is poorly historian.) Constitutional: requiring IVF; No no complaints, No improved, No chills, No diaphoresis, No disoriented, No febrile, No poor po, No requiring O2, No other Eyes: No no complaints, No pain, No discharge, No redness, No visual change, No other ENT: No no complaints, No bleeding, No pain, No congestion, No discharge, No dysphagia, No sore throat, No other Respiratory: No no complaints, No pain, No cough, No pleuritic pain, No shortness of breath, No sputum, No wheezing, No other Cardiovascular: edema, orthopenea; No no complaints, No chest pain, No lightheadedness, No palpitations, No paroxysmal nocturnal dyspnea, No other Gastrointestinal: No no complaints, No pain, No blood, No constipation, No decreased appetite, No diarrhea, No flatus, No nausea, No passing stool, No vomiting, No other Genitourinary: No no complaints, No bleeding, No dysuria, No discharge, No flank pain, No hematuria, No other Musculoskeletal: No no complaints, No back pain, No bone/joint pain, No neck pain, No restricted range of motion, No swelling, No other Skin: No no complaints, No bruising, No erythema, No laceration, No pruritis, No rash, No skin lesions, No other Neurologic: No no complaints, No confusion, No dizziness, No focal-weakness, No headache, No syncope, No seizure, No other Endocrine: No no complaints, No polyuria, No polydypsia, No dry skin, No temp intolerance, No other Lymphatic: No no complaints, No adenopathy, No tender nodes, No lymphadema, No other Psychological: No no complaints, No nl mood/affect, No anxiety, No confusion, No depression, No suicidal, No other Immunologic: No no complaints, No immunodeficiency, No pruritis, No rhinitis, No urticaria, No other Additional Comments ROCEDURE: US Pelvis CLINICAL INDICATION: Adnexal mass, thickened endometrium TECHNIQUE: Sonographic evaluation of the pelvis was performed utilizing both transabdominal and transvaginal technique. Curved array transabdominal transducer technique as well as a high frequency endovaginal probe was utilized. Images were reviewed on the high-resolution PACS workstation. COMPARISON: No prior studies are available for comparison. FINDINGS: The uterus is enlarged heterogeneous measuring 9.3 x 4.6 x 3.2 cm in dimension. The endometrium is not visualized. There is a 5.0 x 5.4 cm mass along the posterior margin of the uterus. The ovaries are not visualized. There is a 2.8 cm cyst within the left adnexa. There is no significant free fluid in the pelvis. IMPRESSION: 1. Examination is very limited secondary to patient motion. The uterus is enlarged and heterogeneous. There is a 5.0 x 5.4 cm mass along the posterior margin of the uterus which may reflect a large subserosal fibroid. There is no significant vascularity, which may reflect degeneration. Leiomyosarcoma is not excluded on this examination. Consider pelvic MRI for further evaluation. 2. The endometrium is not visualized. 3. The ovaries are not visualized. There is a 2.8 cm cyst within the left adnexa .Abdominal wall: Normal IMPRESSION: 1. Abnormal enlargement of the uterus with significant thickening of the endometrial stripe versus large amount fluid within the endometrial canal with abnormally enlarged bilateral ovaries. Consider further evaluation with MRI and gynecologic consult. 2. Large amount of stool throughout the colon likely due to compression of the rectum by the enlarged uterus. 3. Small to moderate size right-sided pleural effusion. 4. Indeterminate two liver lesions as detailed above. Metastatic disease in the differential diagnosis. Consider further evaluation with abdominal MRI with contrast. 5. Prominent subcentimeter retroperitoneal lymph nodes. Past Medical History Past medical history 1. Hypothyroidism 2 peripheral vascular disease. 3. Vae-akzuytn-brushvdib diabetes 4. Stroke Past surgical history: Status post bilateral tubal sterilization Social history: Denies a smoking, drinking alcohol socially. 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, P2, status post x2, SAB x2 Patient denies any history of fibroid disease in the past She denies any history of abnormal Pap smear in the past Home Meds Active Scripts Magnesium Oxide* (Mag-Oxide*) 400 Mg Tablet, 400 MG PO BID for 3 Days, #10 TAB Prov:FERNANDO YANCEY MD 07/08/18 Lactobacillus Rhamnosus GG (Culturelle) 1 Each Capsule, 1 CAP PO BID for 14 D ays, #30 CAP Prov:FERNANDO YANCEY MD 07/08/18 Acetaminophen* (Tylenol*) 325 Mg Tablet, 650 MG PO Q6H PRN for .PAIN 1-3 OR TEMP for 10 Days, #10 TAB Prov:FERNANDO YANCEY MD 07/08/18 Lisinopril* (Lisinopril*) 5 Mg Tablet, 2.5 MG PO DAILY for 15 Days, #15 TAB Prov:FERNANDO YANCEY MD 07/08/18 Sulfamethoxazole/Trimethoprim (Sulfamethoxazole-Tmp Ds Tablet) 1 Each Tablet, 1 TAB PO BID for 5 Days, #10 TAB Prov:FERNANDO YANCEY MD 07/08/18 Reported Medications Sodium Bicarbonate* (Sodium Bicarbonate*) 650 Mg Tablet, 650 MG PO TID, TAB 07/05/18 Propylene Glycol-Peg 400 (Systane 0.3-0.4% Eye Drops) 0.3-0.4 % - 30 Ml Drops, 1 DROP BOTH EYES Q4H PRN for DRY EYES, #1 BOTTLE 07/05/18 Pantoprazole* (Protonix*) 40 Mg Tablet.dr, 40 MG PO QAM, TAB 07/05/18 Ondansetron Hcl* (Zofran*) 8 Mg Tablet, 8 MG PO Q6H PRN for NAUSEA AND OR VOMITING, TAB 07/05/18 Metoprolol Succinate* (Toprol XL*) 25 Mg Tab.sr.24h, 25 MG PO BID, #30 TAB 07/05/18 Metformin* (Glucophage*) 500 Mg Tab, 500 MG PO WITH BREAKFAST, #30 TAB 07/05/18 Levothyroxine Sodium* (Synthroid*) 50 Mcg Tablet, 50 MCG PO BEFORE BREAKFAST, #30 TAB 07/05/18 Hydrocodone/Acetaminophen (Jonancy 5-325 Tablet) 1 Each Tablet, 1 EACH PO Q6 PRN for PAIN, TAB 07/05/18 Huguenot-3 Fatty Acids/Fish Oil (Fish Oil 1,000 mg Capsule) 1 Each Capsule, 1 EACH PO DAILY, CAP 07/05/18 Cyanocobalamin* (Vitamin B-12*) 50 Mcg Tablet, 50 MCG PO DAILY, TAB 07/05/18 Clopidogrel Bisulfate (Clopidogrel) 75 Mg Tablet, 75 MG PO DAILY, #30 TAB 07/05/18 Atorvastatin Calcium* (Atorvastatin Calcium*) 20 Mg Tablet, 20 MG PO QHS, #30 TAB 07/05/18 Aspirin* (Aspirin* EC) 81 Mg Tablet.dr, 81 MG PO DAILY, TAB 07/05/18 Artificial Tears* (Akwa Oint*) 3.5 Gm Oint, 1 APPLIC BOTH EYES Q1H PRN for DRY EYES, #1 TUB 07/05/18 Albuterol Sulfate (Proair Respiclick) 90 Mcg Aer.pow.ba, 2 PUFFS INHALATION Q4 PRN for WHEEZING, BOTTLE 07/05/18 Medications Current Medications IV Flush (NS 3 ml) 3 ml PER PROTOCOL IV ; Start 07/29/18 at 06:30 Ondansetron HCl (Zofran Inj) 4 mg Q6H PRN IV NAUSEA/VOMITING; Start 07/29/18 at 06:30 Acetaminophen (Tylenol Tab) 650 mg Q6H PRN PO .PAIN 1-3 OR TEMP Last administered on 07/31/18 17:25; Admin Dose 650 MG; Start 07/29/18 at 06:30 Acetaminophen/ Hydrocodone Bitart (Jonancy (5/325)) 1 tab Q6H PRN PO .MOD PAIN 4- 6; Start 07/29/18 at 06:30 Pantoprazole (Protonix Tab) 40 mg DAILY@06 PO Last administered on 08/02/18 06:14; Admin Dose 40 MG; Start 07/29/18 at 06:30 Enoxaparin Sodium (Lovenox) 30 mg DAILY SC Last administered on 08/02/18 08:52; Admin Dose 30 MG; Start 07/29/18 at 09:00 Diagnostic Test (Pha) (Accu-Chek) 1 ea 02 XX ; Start 07/30/18 at 02:00 Insulin Aspart (Novolog Insulin Pen) NOVOLOG *MODERATE* ALGORITHM WITH MEALS BEDTIME SC Last administered on 08/02/18 13:39; Admin Dose 2 UNIT; Start 07/29/18 at 07:55 Acetaminophen (Tylenol Tab) 650 mg Q6H PRN PO .PAIN 1-3 OR TEMP Last administered on 08/02/18 11:53; Admin Dose 650 MG; Start 07/29/18 at 07:00 Eye Lubricant (Akwa Oint) 1 applic Q1H PRN BOTH EYES DRY EYES; Start 07/29/18 at 08:00 Aspirin (Halfprin) 81 mg DAILY PO Last administered on 08/02/18 08:48; Admin Dose 81 MG; Start 07/29/18 at 09:00 Atorvastatin Calcium (Lipitor) 20 mg QHS PO Last administered on 08/01/18 20:54; Admin Dose 20 MG; Start 07/29/18 at 21:00 Clopidogrel Bisulfate (plaVIX) 75 mg DAILY PO Last administered on 08/02/18 08:48; Admin Dose 75 MG; Start 07/29/18 at 09:00 Cyanocobalamin (Vitamin B12) 50 mcg DAILY PO Last administered on 08/02/18 08:48; Admin Dose 50 MCG; Start 07/29/18 at 09:00 Levothyroxine Sodium (Synthroid) 50 mcg BEFORE BREAKFAST PO Last administered on 08/02/18at 06:14; Admin Dose 50 MCG; Start 07/29/18 at 07:00 Metoprolol Succinate (Toprol Xl) 25 mg BID PO Last administered on 08/01/18at 20:54; Admin Dose 25 MG; Start 07/29/18 at 09:00 Polyethyl Glycol/ Propylene Glycol (Systane 0.3-0.4% Eye Drops) 1 drop Q4H PRN BOTH EYES DRY EYES; Start 07/29/18 at 08:00 Albuterol (Ventolin Hfa) 2 puff Q4H RESP THERAPY PRN INH WHEEZING; Start 07/29/18 at 09:00 Miscellaneous Information 1 ea NOTE XX ; Start 07/29/18 at 07:00 Glucose (Glutose) 15 gm Q15M PRN PO DECREASED GLUCOSE; Start 07/29/18 at 07:00 Glucose (Glutose) 22.5 gm Q15M PRN PO DECREASED GLUCOSE; Start 07/29/18 at 07:00 Dextrose (D50w Syringe) 25 ml Q15M PRN IV DECREASED GLUCOSE; Start 07/29/18 at 07:00 Dextrose (D50w Syringe) 50 ml Q15M PRN IV DECREASED GLUCOSE; Start 07/29/18 at 07:00 Glucagon (Glucagen) 1 mg Q15M PRN IM DECREASED GLUCOSE; Start 07/29/18 at 07:00 Glucose (Glutose) 15 gm Q15M PRN BUCCAL DECREASED GLUCOSE; Start 07/29/18 at 07:00 Alprazolam (Xanax) 0.25 mg Q8H PRN PO ANXIETY Last administered on 08/01/18at 21:01; Admin Dose 0.25 MG; Start 07/29/18 at 12:30 Polyethylene Glycol (Miralax) 17 gm DAILY PO Last administered on 08/02/18at 08:47; Admin Dose 17 GM; Start 07/29/18 at 12:30 Docusate Sodium (Colace) 100 mg BID PO Last administered on 08/02/18at 08:48; Admin Dose 100 MG; Start 07/31/18 at 21:00 Magnesium Hydroxide (Milk Of Mag) 30 ml Q12H PRN PO STOMACH UPSET/CRAMPING Last administered on 07/31/18at 21:28; Admin Dose 30 ML; Start 07/31/18 at 20:00 Furosemide (Lasix) 20 mg DAILY IV ; Start 08/03/18 at 09:00 Allergies: Coded Allergies: levofloxacin (Verified Allergy, Unknown, 07/05/18) Past Surgical History s/p BTL Family History Significant Family History: no pertinent family hx Social History Alcohol Use: none Smoking Status: Never smoker Drug Use: none Exam/Review of Systems Exam Vitals Vital Signs Date Temp Pulse Resp B/P (MAP) Pulse Ox O2 O2 Flow FiO2 Time Delivery Rate 08/02/18 97.9 85 18 106/63 91 14:48 (77) 08/02/18 Room Air 02:00 Intake and Output 08/01/18 08/01/18 08/02/18 1515:00 23:00 07:00 IntakeIntake Total 120 ml 240 ml BalanceBalance 120 ml 240 ml Constitutional: alert, oriented, other (Cacthectic, low BMI noted) Psych: no complaints, nl mood/affect Head: normocephalic, atraumatic Eyes: EOMI (a pelvic mass palpable,non tender, exam limited due to patient's voluntary guarding), nl lids Neck: supple, non-tender Respiratory: normal air movement, diminished breath sounds Cardiovascular: regular rate and rhythm, nl pulses Gastrointestinal: soft Genitourinary - Female: other (Status post on examination: Cervix normal without any lesion. Vaginal area without any lesion. Vagina atrophic. No abnormal cervical or vaginal lesions noted. Bimanual examination: No cervical motion tenderness, there is a fullness cystic about 5 cm behind the uterus palpable nontender and examination. Uterus palpable at about 13 to 14 cm. Right adnexa not palpable. Left adnexa nonpalpable.) Extremities: normal pulses Neurological: PHARMACEUTICAL PHYSICIAN II-XII intact, nl mental status, nl speech Skin: nl turgor, rash or lesions Results Result Diagram: 08/01/18 0504 08/01/18 0504 Results 24hrs Laboratory Tests Test 08/01/18 17:38 08/01/18 20:54 08/02/18 08:10 08/02/18 13:16 Bedside Glucose 186 153 177 143 Medications Medication Current Medications IV Flush (NS 3 ml) 3 ml PER PROTOCOL IV ; Start 07/29/18 at 06:30 Ondansetron HCl (Zofran Inj) 4 mg Q6H PRN IV NAUSEA/VOMITING; Start 07/29/18 at 06:30 Acetaminophen (Tylenol Tab) 650 mg Q6H PRN PO .PAIN 1-3 OR TEMP Last administered on 07/31/18 17:25; Admin Dose 650 MG; Start 07/29/18 at 06:30 Acetaminophen/ Hydrocodone Bitart (Jonancy (5/325)) 1 tab Q6H PRN PO .MOD PAIN 4-6; Start 07/29/18 at 06:30 Pantoprazole (Protonix Tab) 40 mg DAILY@06 PO Last administered on 08/02/18 06:14; Admin Dose 40 MG; Start 07/29/18 at 06:30 Enoxaparin Sodium (Lovenox) 30 mg DAILY SC Last administered on 08/02/18 08:52; Admin Dose 30 MG; Start 07/29/18 at 09:00 Diagnostic Test (Pha) (Accu-Chek) 1 ea 02 XX ; Start 07/30/18 at 02:00 Insulin Aspart (Novolog Insulin Pen) NOVOLOG *MODERATE* ALGORITHM WITH MEALS BEDTIME SC Last administered on 08/02/18 13:39; Admin Dose 2 UNIT; Start 9 at 07:55 Acetaminophen (Tylenol Tab) 650 mg Q6H PRN PO .PAIN 1-3 OR TEMP Last administered on 08/02/18 11:53; Admin Dose 650 MG; Start 07/29/18 at 07:00 Eye Lubricant (Akwa Oint) 1 applic Q1H PRN BOTH EYES DRY EYES; Start 07/29/18 at 08:00 Aspirin (Halfprin) 81 mg DAILY PO Last administered on 08/02/18 08:48; Admin Dose 81 MG; Start 07/29/18 at 09:00 Atorvastatin Calcium (Lipitor) 20 mg QHS PO Last administered on 08/01/18 20:54; Admin Dose 20 MG; Start 07/29/18 at 21:00 Clopidogrel Bisulfate (plaVIX) 75 mg DAILY PO Last administered on 08/02/18 08:48; Admin Dose 75 MG; Start 07/29/18 at 09:00 Cyanocobalamin (Vitamin B12) 50 mcg DAILY PO Last administered on 08/02/18 08:48; Admin Dose 50 MCG; Start 07/29/18 at 09:00 Levothyroxine Sodium (Synthroid) 50 mcg BEFORE BREAKFAST PO Last administered on 08/02/18 06:14; Admin Dose 50 MCG; Start 07/29/18 at 07:00 Metoprolol Succinate (Toprol Xl) 25 mg BID PO Last administered on 08/01/18at 20:54; Admin Dose 25 MG; Start 07/29/18 at 09:00 Polyethyl Glycol/ Propylene Glycol (Systane 0.3-0.4% Eye Drops) 1 drop Q4H PRN BOTH EYES DRY EYES; Start 07/29/18 at 08:00 Albuterol (Ventolin Hfa) 2 puff Q4H RESP THERAPY PRN INH WHEEZING; Start 07/29/18 at 09:00 Miscellaneous Information 1 ea NOTE XX ; Start 07/29/18 at 07:00 Glucose (Glutose) 15 gm Q15M PRN PO DECREASED GLUCOSE; Start 07/29/18 at 07:00 Glucose (Glutose) 22.5 gm Q15M PRN PO DECREASED GLUCOSE; Start 07/29/18 at 07:00 Dextrose (D50w Syringe) 25 ml Q15M PRN IV DECREASED GLUCOSE; Start 07/29/18 at 07:00 Dextrose (D50w Syringe) 50 ml Q15M PRN IV DECREASED GLUCOSE; Start 07/29/18 at 07:00 Glucagon (Glucagen) 1 mg Q15M PRN IM DECREASED GLUCOSE; Start 07/29/18 at 07:00 Glucose (Glutose) 15 gm Q15M PRN BUCCAL DECREASED GLUCOSE; Start 07/29/18 at 07:00 Alprazolam (Xanax) 0.25 mg Q8H PRN PO ANXIETY Last administered on 08/01/18at 21:01; Admin Dose 0.25 MG; Start 07/29/18 at 12:30 Polyethylene Glycol (Miralax) 17 gm DAILY PO Last administered on 08/02/18 08:47; Admin Dose 17 GM; Start 07/29/18 at 12:30 Docusate Sodium (Colace) 100 mg BID PO Last administered on 08/02/18 08:48; Admin Dose 100 MG; Start 07/31/18 at 21:00 Magnesium Hydroxide (Milk Of Mag) 30 ml Q12H PRN PO STOMACH UPSET/CRAMPING Last administered on 07/31/18at 21:28; Admin Dose 30 ML; Start 07/31/18 at 20:00 Furosemide (Lasix) 20 mg DAILY IV ; Start 08/03/18 at 09:00 NABEEL DURAN MD Aug 02, 2018 15:50
[2018-08-02] MEDS: ONDANSETRON 4 MG INJ IV PRN (19:33)
[2018-08-02 20:00] VITALS: BP 145/69; PULSE 69; RESP 18
[2018-08-02] MEDS: ATORVASTATIN 20 MG TAB PO SCH (21:17)
[2018-08-02] MEDS ORDERED: ZOLPIDEM 5 MG TAB PO PRN (21:30)
[2018-08-03 02:00] VITALS: BP 140/66; PULSE 66; RESP 18
[2018-08-03] MEDS: ACCU-CHEK XX SCH (02:00)
[2018-08-03] MEDS: ALPRAZOLAM 0.25 MG TAB PO PRN ×2 (03:13→22:03)
[2018-08-03] MEDS: LEVOTHYROXINE 50 MCG TAB PO SCH (06:26)
[2018-08-03] MEDS: PANTOPRAZOLE (EC) 40 MG TAB PO SCH (06:26)
[2018-08-03 08:05] VITALS: BP 128/56; PULSE 96; RESP 17
[2018-08-03] MEDS: POLYETHYLENE GLYCOL 17 GM PACKET PO SCH (08:33)
[2018-08-03] MEDS: INSULIN ASPART [NOVOLOG] 3 ML PEN SC SCH ×4 (08:35→21:00)
[2018-08-03] MEDS: ENOXAPARIN 30 MG/0.3 ML SYG SC SCH (08:35)
[2018-08-03] MEDS: ASPIRIN (EC) 81 MG TAB PO SCH (08:36)
[2018-08-03] MEDS: CLOPIDOGREL 75 MG TAB PO SCH (08:36)
[2018-08-03] MEDS: DOCUSATE SODIUM 100 MG CAP PO SCH ×2 (08:36→21:57)
[2018-08-03] MEDS: CYANOCOBALAMIN 100 MCG TAB PO SCH (08:36)
[2018-08-03] MEDS: METOPROLOL (XL) 25 MG TAB PO SCH ×2 (08:37→21:58)
[2018-08-03] MEDS: FUROSEMIDE 20 MG INJ IV SCH (08:38)
--- NOTE | 2018-08-03 10:44 | PN ---
Date/Time of Note Date/Time of Note DATE: 08/03/18 TIME: 10:36 Assessment/Plan VTE Prophylaxis Risk score (from Nsg)>0 risk: 3 SCD applied (from Nsg): Yes Pharmacological prophylaxis: LMWH Lines/Catheters IV Catheter Type (from Nrsg): Saline Lock Urinary Cath still in place: No Assessment/Plan Hospital Course Assessment/Plan 1. Pelvic Mass - Patient with elevated CA 19-9 & CA 125 - pelvic u.s.: There is a 5.0 x 5.4 cm mass along the posterior margin of the uterus - will get MANAGER SEMICONDUCTOR ONC consultation - discussed with nephrology, will get MRI pelvic with contrast for further evaluation 2. PAD - Lower leg edema, orthopnea, paroxysmal nocturnal dyspnea - improving - optimize on cardiovascular medications. ACEI on hold due to edilma - continue diuresis - echo: EF at 70% with stage 1 diastolic dysfunction - vascular surgeon following 3. EDILMA - avoid nephrotoxic medications as possible - monitor renal panel - improving 4. Anorexia/Weight loss - Patient has an outpatient GI appointment with Dr. Mariano. - Small frequent meals - dietitian consult 5. Peripheral vascular disease - Continue aspirin, plavix - Patient has appointment with Dr. Maldonado on August 08 - Surgeon notified about patient's hospitalization - Vascular surgeon following 5. Non-insulin dependent diabetes - continue insulin regimen. will adjust as needed - HgbA1C: 6.3 6 Hypothyroid - continue levothyroxine. DISPO/PLAN: f/u MRI of pelvis to evaluate suspect mass. MANAGER SEMICONDUCTOR ONC eval to follow. Case discussed with patient's son. Discussed POC with Dr. Grover Result Diagram: 08/03/18 0452 08/03/18 0452 Results 24hrs Laboratory Tests Test 08/02/18 13:16 08/02/18 14:07 08/02/18 17:55 08/02/18 21:14 Bedside Glucose 143 180 237 H CA 19-9 Antigen 334.0 H CA 125 Antigen 114.0 H Test 08/03/18 01:48 08/03/18 04:52 08/03/18 05:30 08/03/18 08:32 Bedside Glucose 142 142 White Blood Count 10.5 # Red Blood Count 2.76 L Hemoglobin 7.9 L Hematocrit 23.9 L Mean Corpuscular Volume 86.6 Mean Corpuscular 28.6 L Hemoglobin Mean Corpuscular 33.1 Hemoglobin Concent Red Cell Distribution 15.4 H Width Platelet Count 584 H Mean Platelet Volume 9.3 Immature Granulocytes % 0.600 H Neutrophils % 61.8 Lymphocytes % 22.1 Monocytes % 13.3 H Eosinophils % 1.8 Basophils % 0.4 Nucleated Red Blood 0.0 Cells % Immature Granulocytes # 0.060 H Neutrophils # 6.5 Lymphocytes # 2.3 Monocytes # 1.4 H Eosinophils # 0.2 Basophils # 0.0 Nucleated Red Blood 0.0 Cells # Sodium Level 136 Potassium Level 4.3 Chloride Level 107 Carbon Dioxide Level 21 Anion Gap 8 Blood Urea Nitrogen 37 H Creatinine 1.27 H Est Glomerular Filtrat 42 L Rate mL/min Glucose Level 142 Calcium Level 9.0 Urine Random Creatinine 71.78 Urine Random Sodium 67 Urine Total Protein 13.0 H Subjective 24 Hr Interval Summary Free Text/Dictation comfortable at present. no s/s of distress. Discussed with RN who reported patient with 50% or less with eating food Exam/Review of Systems Exam Vitals Vital Signs Date Temp Pulse Resp B/P (MAP) Pulse Ox O2 O2 Flow FiO2 Time Delivery Rate 08/03/18 98.6 96 17 128/56 100 Room Air 08:05 (80) Intake and Output 08/02/18 08/02/18 08/03/18 1515:00 23:00 07:00 IntakeIntake Total 480 ml 1120 ml BalanceBalance 480 ml 1120 ml Exam Constitutional: alert; No oriented Psych: anxiety Head: normocephalic Neck: supple, non-tender Respiratory: diminished breath sounds Cardiovascular: other (regular rate ) Gastrointestinal: soft, minimally tender on palpation Musculoskeletal: swelling ble, more on rle Neurological: nl speech; No nl mental status Results Results 24hrs Laboratory Tests Test 08/02/18 13:16 08/02/18 14:07 08/02/18 17:55 08/02/18 21:14 Bedside Glucose 143 180 237 H CA 19-9 Antigen 334.0 H CA 125 Antigen 114.0 H Test 08/03/18 01:48 08/03/18 04:52 08/03/18 05:30 08/03/18 08:32 Bedside Glucose 142 142 White Blood Count 10.5 # Red Blood Count 2.76 L Hemoglobin 7.9 L Hematocrit 23.9 L Mean Corpuscular Volume 86.6 Mean Corpuscular 28.6 L Hemoglobin Mean Corpuscular 33.1 Hemoglobin Concent Red Cell Distribution 15.4 H Width Platelet Count 584 H Mean Platelet Volume 9.3 Immature Granulocytes % 0.600 H Neutrophils % 61.8 Lymphocytes % 22.1 Monocytes % 13.3 H Eosinophils % 1.8 Basophils % 0.4 Nucleated Red Blood 0.0 Cells % Immature Granulocytes # 0.060 H Neutrophils # 6.5 Lymphocytes # 2.3 Monocytes # 1.4 H Eosinophils # 0.2 Basophils # 0.0 Nucleated Red Blood 0.0 Cells # Sodium Level 136 Potassium Level 4.3 Chloride Level 107 Carbon Dioxide Level 21 Anion Gap 8 Blood Urea Nitrogen 37 H Creatinine 1.27 H Est Glomerular Filtrat 42 L Rate mL/min Glucose Level 142 Calcium Level 9.0 Urine Random Creatinine 71.78 Urine Random Sodium 67 Urine Total Protein 13.0 H Medications Medication Current Medications IV Flush (NS 3 ml) 3 ml PER PROTOCOL IV ; Start 07/29/18 at 06:30 Ondansetron HCl (Zofran Inj) 4 mg Q6H PRN IV NAUSEA/VOMITING Last administered on 08/02/18 19:33; Admin Dose 4 MG; Start 07/29/18 at 06:30 Acetaminophen (Tylenol Tab) 650 mg Q6H PRN PO .PAIN 1-3 OR TEMP Last administered on 08/02/18 21:17; Admin Dose 650 MG; Start 07/29/18 at 06:30 Acetaminophen/ Hydrocodone Bitart ([place] (5/325)) 1 tab Q6H PRN PO .MOD PAIN 4- 6; Start 07/29/18 at 06:30 Pantoprazole (Protonix Tab) 40 mg DAILY@06 PO Last administered on 08/03/18 06:26; Admin Dose 40 MG; Start 07/29/18 at 06:30 Enoxaparin Sodium (Lovenox) 30 mg DAILY SC Last administered on 08/03/18 08:35; Admin Dose 30 MG; Start 07/29/18 at 09:00 Diagnostic Test (Pha) (Accu-Chek) 1 ea 02 XX ; Start 07/30/18 at 02:00 Insulin Aspart (Novolog Insulin Pen) NOVOLOG *MODERATE* ALGORITHM WITH MEALS BEDTIME SC Last administered on 08/03/18 08:35; Admin Dose 2 UNIT; Start 07/29/18 at 07:55 Acetaminophen (Tylenol Tab) 650 mg Q6H PRN PO .PAIN 1-3 OR TEMP Last admin istered on 08/02/18 11:53; Admin Dose 650 MG; Start 07/29/18 at 07:00 Eye Lubricant (Akwa Oint) 1 applic Q1H PRN BOTH EYES DRY EYES; Start 07/29/18 at 08:00 Aspirin (Halfprin) 81 mg DAILY PO Last administered on 08/03/18 08:36; Admin Dose 81 MG; Start 07/29/18 at 09:00 Atorvastatin Calcium (Lipitor) 20 mg QHS PO Last administered on 08/02/18 21:17; Admin Dose 20 MG; Start 07/29/18 at 21:00 Clopidogrel Bisulfate (plaVIX) 75 mg DAILY PO Last administered on 08/03/18 08:36; Admin Dose 75 MG; Start 07/29/18 at 09:00 Cyanocobalamin (Vitamin B12) 50 mcg DAILY PO Last administered on 08/03/18 08:36; Admin Dose 50 MCG; Start 07/29/18 at 09:00 Levothyroxine Sodium (Synthroid) 50 mcg BEFORE BREAKFAST PO Last administered on 08/03/18 06:26; Admin Dose 50 MCG; Start 07/29/18 at 07:00 Metoprolol Succinate (Toprol Xl) 25 mg BID PO Last administered on 08/03/18 08:37; Admin Dose 25 MG; Start 07/29/18 at 09:00 Polyethyl Glycol/ Propylene Glycol (Systane 0.3-0.4% Eye Drops) 1 drop Q4H PRN BOTH EYES DRY EYES; Start 07/29/18 at 08:00 Albuterol (Ventolin Hfa) 2 puff Q4H RESP THERAPY PRN INH WHEEZING; Start 07/29/18 at 09:00 Miscellaneous Information 1 ea NOTE XX ; Start 07/29/18 at 07:00 Glucose (Glutose) 15 gm Q15M PRN PO DECREASED GLUCOSE; Start 07/29/18 at 07:00 Glucose (Glutose) 22.5 gm Q15M PRN PO DECREASED GLUCOSE; Start 07/29/18 at 07:00 Dextrose (D50w Syringe) 25 ml Q15M PRN IV DECREASED GLUCOSE; Start 07/29/18 at 07:00 Dextrose (D50w Syringe) 50 ml Q15M PRN IV DECREASED GLUCOSE; Start 07/29/18 at 07:00 Glucagon (Glucagen) 1 mg Q15M PRN IM DECREASED GLUCOSE; Start 07/29/18 at 07:00 Glucose (Glutose) 15 gm Q15M PRN BUCCAL DECREASED GLUCOSE; Start 07/29/18 at 07:00 Alprazolam (Xanax) 0.25 mg Q8H PRN PO ANXIETY Last administered on 08/03/18 03:13; Admin Dose 0.25 MG; Start 07/29/18 at 12:30 Polyethylene Glycol (Miralax) 17 gm DAILY PO Last administered on 08/03/18 08:33; Admin Dose 17 GM; Start 07/29/18 at 12:30 Docusate Sodium (Colace) 100 mg BID PO Last administered on 08/03/18 08:36; Admin Dose 100 MG; Start 07/31/18 at 21:00 Magnesium Hydroxide (Milk Of Mag) 30 ml Q12H PRN PO STOMACH UPSET/CRAMPING Last administered on 07/31/18at 21:28; Admin Dose 30 ML; Start 07/31/18 at 20:00 Furosemide (Lasix) 20 mg DAILY IV Last administered on 08/03/18 08:38; Admin Dose 20 MG; Start 08/03/18 at 09:00 FIDE MAGUIRE NP Aug 03, 2018 10:43
--- NOTE | 2018-08-03 11:34 | PN ---
DATE: 08/03/2018 SUBJECTIVE: The patient is stable, no events noted. OBJECTIVE: VITAL SIGNS: Blood pressure is 128/56, pulse 96, respirations 17, temperature 98.6. HEENT: Head is normocephalic. NECK: Supple. HEART: Regular rate. LUNGS: Show diminished breath sounds at the base. ABDOMEN: Soft, nontender to palpation without rebound or guarding. EXTREMITIES: Negative for clubbing, cyanosis, no edema. DERMATOLOGIC: No rashes. MUSCULOSKELETAL: No joint effusion. NEUROLOGIC: No change in exam. MEDICATIONS: Have been reviewed. LABORATORY DATA: Has been reviewed. Urinalysis has been reviewed. MICROBIOLOGY: Has been reviewed. RENAL ULTRASOUND: Has been reviewed. ASSESSMENT AND PLAN: 1. Nonoliguric acute kidney injury with previous baseline creatinine of 0.69 mg/dL. Etiology of acu te kidney injury is likely due to hemodynamics, diuretics, DELBERT inhibitor effect. The patient's urina lysis was reviewed, no active sediment. The patient has a FENa greater than 1%. Renal ultrasound al so showed no evidence of obstruction or hydronephrosis. The patient's renal function has been improv ing with adjusting diuretic therapy and discontinuing DELBERT inhibitor. At this point, continue current treatment plan, supportive care, renally dose all meds. We will continue to monitor closely. 2. Anemia. Continue to monitor hemoglobin and hematocrit levels. 3. Mineral bone disorder, monitor calcium and phosphorus levels. 4. Peripheral vascular disease. Continue to monitor. Follow up with vascular surgery. 5. Volume overload. The patient has noted lower extremity edema, etiology may be secondary to venou s insufficiency. A 2D echo showed preserved ejection fraction. The patient's diuretics have been de escalated. Will continue to monitor closely. 6. Abdominal mass. The patient may have underlying malignancy given elevated tumor markers. If an MRI with contrast is needed, may proceed as renal function and creatinine have been improving. 7. Diabetes. Continue current insulin regimen. 8. Hypothyroidism. Continue Synthroid. 9. Venous insufficiency. Continue to monitor. 10. Anorexia and weight loss. The patient's CT scan showed possible mass. Continue workup. Follow up with LOOM CHANGER. Dictated By: JACOB KAUFMAN/NTS Conf#: [id number] DID#: [id number] CC: TAN MAIER MD;*EndCC*
[2018-08-03 14:23] VITALS: BP 87/54; PULSE 90; RESP 16
[2018-08-03] MEDS: AL HYDROX/MG HYDROX/SIMETH 30 ML CUP PO PRN (17:33)
[2018-08-03 19:57] VITALS: BP 94/60; PULSE 86; RESP 17
[2018-08-03] MEDS: ATORVASTATIN 20 MG TAB PO SCH (21:57)
[2018-08-04 01:55] VITALS: BP 103/54; PULSE 82; RESP 18
[2018-08-04] MEDS: ACCU-CHEK XX SCH (02:00)
[2018-08-04] MEDS: PANTOPRAZOLE (EC) 40 MG TAB PO SCH (05:30)
[2018-08-04] MEDS: LEVOTHYROXINE 50 MCG TAB PO SCH (05:31)
[2018-08-04 07:54] VITALS: BP 110/65; PULSE 81; RESP 20
[2018-08-04] MEDS: ASPIRIN (EC) 81 MG TAB PO SCH (08:23)
[2018-08-04] MEDS: DOCUSATE SODIUM 100 MG CAP PO SCH ×2 (08:23→20:32)
[2018-08-04] MEDS: FUROSEMIDE 20 MG INJ IV SCH (08:23)
[2018-08-04] MEDS: POLYETHYLENE GLYCOL 17 GM PACKET PO SCH (08:24)
[2018-08-04] MEDS: CLOPIDOGREL 75 MG TAB PO SCH (08:24)
[2018-08-04] MEDS: METOPROLOL (XL) 25 MG TAB PO SCH ×2 (08:24→20:41)
[2018-08-04] MEDS: CYANOCOBALAMIN 100 MCG TAB PO SCH (08:24)
[2018-08-04] MEDS: INSULIN ASPART [NOVOLOG] 3 ML PEN SC SCH ×4 (08:25→22:22)
[2018-08-04] MEDS: ENOXAPARIN 30 MG/0.3 ML SYG SC SCH (08:26)
--- NOTE | 2018-08-04 09:21 | PN ---
DATE: 08/04/2018 SUBJECTIVE: The patient is stable. No events overnight. No fevers, chills, nausea, vomiting. OBJECTIVE: VITAL SIGNS: Blood pressure is 110/65, pulse 81, temperature 97.5. HEENT: Head is normocephalic. NECK: Supple. HEART: Regular rate. LUNGS: Show diminished breath sounds at the base. ABDOMEN: Soft, nontender to palpation. No rebound or guarding. EXTREMITIES: Negative for clubbing, cyanosis, no edema. DERMATOLOGIC: No rashes. MUSCULOSKELETAL: No joint effusion. NEUROLOGIC: No change in exam. MEDICATIONS: Have been reviewed. LABORATORY DATA: Has been reviewed. ASSESSMENT AND PLAN: 1. Nonoliguric acute kidney injury with previous baseline creatinine of 0.69 mg/dL. Etiology of acu te kidney injury is secondary to hemodynamics, DELBERT inhibitor effect. The patient's renal function fatima s been fluctuating but slowly improving. We will continue current treatment plan. Will discontinue IV diuretics and monitor closely. 2. Anemia. Monitor hemoglobin and hematocrit levels. 3. Mineral bone disorder, monitor calcium and phosphorus levels. 4. Peripheral vascular disease. Continue to monitor. 5. Volume overload. The patient has noted lower extremity edema, etiology may be secondary to venou s insufficiency. A 2D echo reviewed. Continue to monitor. Will hold diuretic therapy at this time. 6. Abdominal mass. The patient's pelvic ultrasound shows posterior uterus mass, possible leiomyosar coma. Continue to monitor. Follow up with STAFF ANALYST. 7. Diabetes. Continue current insulin regimen. 8. Hypothyroidism. Continue Synthroid. Dictated By: JACOB BROCK DO NR/NTS Conf#: [id number] DID#: [id number] CC: TAN MAIER MD;*EndCC*
--- NOTE | 2018-08-04 10:52 | PN ---
Date/Time of Note Date/Time of Note DATE: 08/04/18 TIME: 10:48 Assessment/Plan VTE Prophylaxis Risk score (from Nsg)>0 risk: 3 SCD applied (from Nsg): Yes Pharmacological prophylaxis: LMWH Lines/Catheters IV Catheter Type (from Nrsg): Saline Lock Urinary Cath still in place: No Assessment/Plan Hospital Course Assessment/Plan 1. Pelvic Mass - Patient with elevated CA 19-9 & CA 125 - pelvic u.s.: There is a 5.0 x 5.4 cm mass along the posterior margin of the uterus - COLLECTIONS SPECIALIST ONC consultation - eval pending - discussed with nephrology, will get MRI pelvic with contrast for further evaluation - MRI 08/03/18: Irregular 9 cm exophytic posterior uterus mass which has similar signal characteristics as a uterine fibroid except for its large size, cystic change and irregular shape. One possible differential is leiomyosarcoma. Recommend tissue sampling. 2. PAD - Lower leg edema, orthopnea - mproving - optimize on cardiovascular medications. ACEI on hold due to edilma - continue diuresis - echo: EF at 70% with stage 1 diastolic dysfunction - vascular surgeon following 3. EDILMA - avoid nephrotoxic medications as possible - monitor renal panel - improving 4. Anorexia/Weight loss -unable to tolerate oral intake - will get GI consult - Small frequent meals - dietitian consult 5. Peripheral vascular disease - Continue aspirin, plavix - Patient has appointment with Dr. Maldonado on August 08 - Surgeon notified about patient's hospitalization - Vascular surgeon following 5. Non-insulin dependent diabetes - continue insulin regimen. will adjust as needed - HgbA1C: 6.3 6 Hypothyroid - continue levothyroxine. DISPO/PLAN: f/u COLLECTIONS SPECIALIST ONC eval. GI to follow for decrease oral intake/abd pain. Discussed POC with Dr. Grover Result Diagram: 08/04/18 0430 08/04/18 043 Results 24hrs Laboratory Tests Test 08/03/18 12:47 08/03/18 17:32 08/03/18 22:03 08/04/18 04:30 Bedside Glucose 178 191 148 White Blood Count 11.0 H Red Blood Count 3.09 L Hemoglobin 8.8 L Hematocrit 27.2 L Mean Corpuscular Volume 88.0 Mean Corpuscular 28.5 L Hemoglobin Mean Corpuscular 32.4 Hemoglobin Concent Red Cell Distribution 15.7 H Width Platelet Count 662 H Mean Platelet Volume 9.4 Immature Granulocytes % 0.500 H Neutrophils % 66.5 Lymphocytes % 19.8 Monocytes % 11.6 H Eosinophils % 1.3 Basophils % 0.3 Nucleated Red Blood 0.0 Cells % Immature Granulocytes # 0.060 H Neutrophils # 7.3 Lymphocytes # 2.2 Monocytes # 1.3 H Eosinophils # 0.1 Basophils # 0.0 Nucleated Red Blood 0.0 Cells # Sodium Level 137 Potassium Level 4.4 Chloride Level 104 Carbon Dioxide Level 24 Anion Gap 9 Blood Urea Nitrogen 40 H Creatinine 1.45 H Est Glomerular Filtrat 36 L Rate mL/min Glucose Level 140 Calcium Level 9.0 Test 08/04/18 08:20 Bedside Glucose 154 Subjective 24 Hr Interval Summary Free Text/Dictation Reports difficulty eating. Unable to tolerate oral intake this morning. Exam/Review of Systems Exam Vitals Vital Signs Date Temp Pulse Resp B/P (MAP) Pulse Ox O2 O2 Flow FiO2 Time Delivery Rate 08/04/18 97.5 81 20 110/65 96 07:54 (80) 08/03/18 Room Air 14:23 Intake and Output 08/03/18 08/03/18 08/04/18 1515:00 23:00 07:00 IntakeIntake Total 120 ml 360 ml BalanceBalance 120 ml 360 ml Exam Constitutional: alert; No oriented Psych: anxiety Head: normocephalic Neck: supple, non-tender Respiratory: diminished breath sounds Cardiovascular: other (regular rate ) Gastrointestinal: soft, minimally tender on palpation Musculoskeletal: swelling ble, more on rle Neurological: nl speech; No nl mental status Results Results 24hrs Laboratory Tests Test 08/03/18 12:47 08/03/18 17:32 08/03/18 22:03 08/04/18 04:30 Bedside Glucose 178 191 148 White Blood Count 11.0 H Red Blood Count 3.09 L Hemoglobin 8.8 L Hematocrit 27.2 L Mean Corpuscular Volume 88.0 Mean Corpuscular 28.5 L Hemoglobin Mean Corpuscular 32.4 Hemoglobin Concent Red Cell Distribution 15.7 H Width Platelet Count 662 H Mean Platelet Volume 9.4 Immature Granulocytes % 0.500 H Neutrophils % 66.5 Lymphocytes % 19.8 Monocytes % 11.6 H Eosinophils % 1.3 Basophils % 0.3 Nucleated Red Blood 0.0 Cells % Immature Granulocytes # 0.060 H Neutrophils # 7.3 Lymphocytes # 2.2 Monocytes # 1.3 H Eosinophils # 0.1 Basophils # 0.0 Nucleated Red Blood 0.0 Cells # Sodium Level 137 Potassium Level 4.4 Chloride Level 104 Carbon Dioxide Level 24 Anion Gap 9 Blood Urea Nitrogen 40 H Creatinine 1.45 H Est Glomerular Filtrat 36 L Rate mL/min Glucose Level 140 Calcium Level 9.0 Test 08/04/18 08:20 Bedside Glucose 154 Medications Medication Current Medications IV Flush (NS 3 ml) 3 ml PER PROTOCOL IV ; Start 07/29/18 at 06:30 Ondansetron HCl (Zofran Inj) 4 mg Q6H PRN IV NAUSEA/VOMITING Last administered on 08/02/18 19:33; Admin Dose 4 MG; Start 07/29/18 at 06:30 Acetaminophen (Tylenol Tab) 650 mg Q6H PRN PO .PAIN 1-3 OR TEMP Last administered on 08/02/18 21:17; Admin Dose 650 MG; Start 07/29/18 at 06:30 Acetaminophen/ Hydrocodone Bitart ([place] (5/325)) 1 tab Q6H PRN PO .MOD PAIN 4- 6; Start 07/29/18 at 06:30 Pantoprazole (Protonix Tab) 40 mg DAILY@06 PO Last administered on 08/04/18 05:30; Admin Dose 40 MG; Start 07/29/18 at 06:30 Enoxaparin Sodium (Lovenox) 30 mg DAILY SC Last administered on 08/04/18 08:26; Admin Dose 30 MG; Start 07/29/18 at 09:00 Diagnostic Test (Pha) (Accu-Chek) 1 ea 02 XX ; Start 07/30/18 at 02:00 Insulin Aspart (Novolog Insulin Pen) NOVOLOG *MODERATE* ALGORITHM WITH MEALS BEDTIME SC Last administered on 08/04/18 08:25; Admin Dose 2 UNIT; Start 07/29/18 at 07:55 Acetaminophen (Tylenol Tab) 650 mg Q6H PRN PO .PAIN 1-3 OR TEMP Last administered on 08/02/18 11:53; Admin Dose 650 MG; Start 07/29/18 at 07:00 Eye Lubricant (Akwa Oint) 1 applic Q1H PRN BOTH EYES DRY EYES; Start 07/29/18 at 08:00 Aspirin (Halfprin) 81 mg DAILY PO Last administered on 08/04/18 08:23; Admin Dose 81 MG; Start 07/29/18 at 09:00 Atorvastatin Calcium (Lipitor) 20 mg QHS PO Last administered on 08/03/18 21:57; Admin Dose 20 MG; Start 07/29/18 at 21:00 Clopidogrel Bisulfate (plaVIX) 75 mg DAILY PO Last administered on 08/04/18 08:24; Admin Dose 75 MG; Start 07/29/18 at 09:00 Cyanocobalamin (Vitamin B12) 50 mcg DAILY PO Last administered on 08/04/18 08:24; Admin Dose 50 MCG; Start 07/29/18 at 09:00 Levothyroxine Sodium (Synthroid) 50 mcg BEFORE BREAKFAST PO Last administered on 08/04/18 05:31; Admin Dose 50 MCG; Start 07/29/18 at 07:00 Metoprolol Succinate (Toprol Xl) 25 mg BID PO Last administered on 08/04/18 08:24; Admin Dose 25 MG; Start 07/29/18 at 09:00 Polyethyl Glycol/ Propylene Glycol (Systane 0.3-0.4% Eye Drops) 1 drop Q4H PRN BOTH EYES DRY EYES; Start 07/29/18 at 08:00 Albuterol (Ventolin Hfa) 2 puff Q4H RESP THERAPY PRN INH WHEEZING; Start 07/29/18 at 09:00 Miscellaneous Information 1 ea NOTE XX ; Start 07/29/18 at 07:00 Glucose (Glutose) 15 gm Q15M PRN PO DECREASED GLUCOSE; Start 07/29/18 at 07:00 Glucose (Glutose) 22.5 gm Q15M PRN PO DECREASED GLUCOSE; Start 07/29/18 at 07:00 Dextrose (D50w Syringe) 25 ml Q15M PRN IV DECREASED GLUCOSE; Start 07/29/18 at 07:00 Dextrose (D50w Syringe) 50 ml Q15M PRN IV DECREASED GLUCOSE; Start 07/29/18 at 07:00 Glucagon (Glucagen) 1 mg Q15M PRN IM DECREASED GLUCOSE; Start 07/29/18 at 07:00 Glucose (Glutose) 15 gm Q15M PRN BUCCAL DECREASED GLUCOSE; Start 07/29/18 at 0 7:00 Alprazolam (Xanax) 0.25 mg Q8H PRN PO ANXIETY Last administered on 08/03/18 22:03; Admin Dose 0.25 MG; Start 07/29/18 at 12:30 Polyethylene Glycol (Miralax) 17 gm DAILY PO Last administered on 08/04/18 08:24; Admin Dose 17 GM; Start 07/29/18 at 12:30 Docusate Sodium (Colace) 100 mg BID PO Last administered on 08/04/18 08:23; Admin Dose 100 MG; Start 07/31/18 at 21:00 Magnesium Hydroxide (Milk Of Mag) 30 ml Q12H PRN PO STOMACH UPSET/CRAMPING Last administered on 07/31/18 21:28; Admin Dose 30 ML; Start 07/31/18 at 20:00 Al Hydrox/Mg Hydrox/Simethicone (Mag-Al Plus) 30 ml Q6H PRN PO GASTROINTESTINAL UPSET Last administered on 08/03/18 17:33; Admin Dose 30 ML; Start 08/03/18 at 17:30 FIDE MAGUIRE DEHYDROGENATION CONVERTER HELPER Aug 04, 2018 10:52
[2018-08-04] MEDS: ACETAMINOPHEN 325 MG TAB PO PRN ×2 (12:11→20:51)
--- NOTE | 2018-08-04 13:56 | RADRPT ---
Echocardiogram Report Patient Name: Fozia NAYAKnt ID: [id number] : 1951 (68y )Study Date: 07/29/2018 12:27:56 PM Gender: FAccession #: [id number] Tech: Marcelino Mahajan [facility] Location: [id number]- Ref.Physician: TAN MAIER Height(Cm): BSA: Weight(Kg): Quality: AdequateOrder Physician: TAN MAIER Account #: Procedures: Echocardiographic Report: Transthoracic echocardiogram with complete 2D, M-Mode, and doppler examination. Indications: Congestive Heart Failure. Measurements: 2D/M Mode Doppler Measurement Value Normal Range Measurement Value Normal Range LVIDd 2D 3.8 [ 3.8 - 5.2 ] cm AV Peak [place] 0.9 [ 100.0 - 170.0 ] cm/se c LVIDs 2D 2.3 [ 2.2 - 3.5 ] cm AV Peak PG 4.0 [ 2.0 - 9.0 ] mmHg LVPWd 2D 0.8 [ 0.6 - 0.9 ] cm LVOT Peak [place] 0.7 [ 70.0 - 110.0 ] cm/sec IVSd 2D 0.6 [ 0.6 - 0.9 ] cm LVOT Peak PG 2.0 [ 2.0 - 6.0 ] mmHg AoR Diam 2D 2.5 [ 2.3 - 3.1 ] cm MV E Peak [place] 0.9 [ 60.0 - 130.0 ] cm/sec EDV 2D 61.6 [ 46.0 - 106.0 ] ml MV A Peak [place] 1.0 [ 100.0 - 120.0 ] cm/se c ESV 2D 18.7 [ 14.0 - 42.0 ] ml MV E/A 0.9 [ 0.8 - 1.5 ] ratio EF 2D 69.6 [ 54.0 - 74.0 ] percent MV PHT 53.0 [ 20.0 - 100.0 ] msec LA Dimen 2D 2.9 [ 2.7 - 3.8 ] cm MV Decel Time 180 [ 104 - 258 ] msec MV Decel [place] 5 Lat E` Hunter 0.1 [ 10.0 - 15.0 ] cm/sec Lateral E/E` 8.9 [ 1.0 - 2.0 ] ratio Med E` Hunter 0.1 cm/sec MV E/A 0.9 [ 0.8 - 1.5 ] ratio MVA PHT 4.2 [ 2.0 - 4.0 ] cm2 Findings: Left Ventricle: Normal left ventricular systolic function. Normal left ventricular cavity size. Normal left ventricular wall thickness. Ejection fraction is visually estimated at 60 %. Tissue Doppler/Mitral Doppler indices are consistent with impaired relaxation (Stage I diastolic dysfunction). Right Ventricle: Normal right ventricular size. Normal right ventricular systolic function. Left Atrium: The left atrium is normal in size. Right Atrium: The right atrium is normal in size. Atrial Septum: Normal atrial septum. Ventricular septum: Normal/intact ventricular septum. Mitral Valve: Normal appearance of the mitral valve. No mitral valve regurgitation is seen. Aortic Valve: Normal appearance of the aortic valve. No aortic regurgitation. Tricuspid Valve: Normal appearance of the tricuspid valve. Unable to obtain RVSP due to minimal presence of tricuspid regurgitation. Physiologic tricuspid regurgitation. Pulmonic Valve: Pulmonic valve not well visualized. No evidence of pulmonic regurgitation. Pericardium: Normal pericardium with no significant pericardial effusion. Aorta: Normal aortic root. IVC: Normal size and normal respiratory collapse consistent with normal right atrial pressure. Conclusions: Normal left ventricular systolic function. Grade 1 diastolic dysfunction. No significant valvular abnormalities seen. Electronically Signed By: Andreia Arroyo 2018-08-04 13:55:47 PDT
[2018-08-04 14:46] VITALS: BP 96/46; PULSE 72; RESP 18
--- NOTE | 2018-08-04 14:57 | CONS ---
Assessment/Plan Assessment/Plan Hospital Course (Demo Recall) Assessment/Plan (Daily) Assessment: Constipation - large amounts of retained stool on imaging - possible compression of rectum by the uterine mass Anorexia with decreased oral intake Abdominal pain Weight loss of 20 lbs - likely related to malignancy vs gastroparesis Uterine mass - possible malignancy on MRI Elevated CA 19-9 and CA 125 EDILMA Diabetes Hypothyroidism Hx of peripheral artery disease Plan: Will obtain gastric emptying study to evaluate for any possible gastroparesis. 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 Patient seen in collaboration with Dr. Boswell. CC: MICHELLE BOSWELL MD ; Consultation Date/Type/Reason Admit Date/Time 29 July 2018 Date of Consultation: Aug 04, 2018 Type of Consult gastroenterology Reason for Consultation poor oral intake, weight loss, abdominal pain Date/Time of Note DATE: 08/04/18 TIME: 14:37 Hx of Present Illness Ms. Rausch is a 68 y/o woman with a history of PAD, diabetes, hypothyroidism, who is admitted with CHF exacerbation. She has also been having recent anorexia with poor oral intake and progressive weight loss. She also has a history of abdominal pain. The patient is a poor historian and somewhat confused thus most of the history is obtained from son Rk over the phone. He reports she has been having loss of appetite and skipping meals over the past few months. She does get nauseated and has occasional vomiting. He is unsure if she ever had a colonoscopy or endoscopy before as she just moved from [place]. She had a CT abdomen pelvis which showed a pelvic mass and large amounts of stool in the colon. She had an MRI which showed exophytic uterine mass. Her CA 19-9 and CA 125 were markedly elevated. She reports she is having bowel movements, though probably has incomplete evacuation per son. Review of systems is limited by patient mental status. Subjective hx not possible: other (somewhat confused, poor historian.) Past Medical History Home Meds Active Scripts Magnesium Oxide* (Mag-Oxide*) 400 Mg Tablet, 400 MG PO BID for 3 Days, #10 TAB Prov:FERNANDO YANCEY MD 07/08/18 Lactobacillus Rhamnosus GG (Culturelle) 1 Each Capsule, 1 CAP PO BID for 14 Days, #30 CAP Prov:FERNANDO YANCEY MD 07/08/18 Acetaminophen* (Tylenol*) 325 Mg Tablet, 650 MG PO Q6H PRN for .PAIN 1-3 OR TEMP for 10 Days, #10 TAB Prov:FERNANDO YANCEY MD 07/08/18 Lisinopril* (Lisinopril*) 5 Mg Tablet, 2.5 MG PO DAILY for 15 Days, #15 TAB Prov:FERNANDO YANCEY MD 07/08/18 Sulfamethoxazole/Trimethoprim (Sulfamethoxazole-Tmp Ds Tablet) 1 Each Tablet, 1 TAB PO BID for 5 Days, #10 TAB Prov:FERNANDO YANCEY MD 07/08/18 Reported Medications Sodium Bicarbonate* (Sodium Bicarbonate*) 650 Mg Tablet, 650 MG PO TID, TAB 07/05/18 Propylene Glycol-Peg 400 (Systane 0.3-0.4% Eye Drops) 0.3-0.4 % - 30 Ml Drops, 1 DROP BOTH EYES Q4H PRN for DRY EYES, #1 BOTTLE 07/05/18 Pantoprazole* (Protonix*) 40 Mg Tablet.dr, 40 MG PO QAM, TAB 07/05/18 Ondansetron Hcl* (Zofran*) 8 Mg Tablet, 8 MG PO Q6H PRN for NAUSEA AND OR VOMITING, TAB 07/05/18 Metoprolol Succinate* (Toprol XL*) 25 Mg Tab.sr.24h, 25 MG PO BID, #30 TAB 07/05/18 Metformin* (Glucophage*) 500 Mg Tab, 500 MG PO WITH BREAKFAST, #30 TAB 07/05/18 Levothyroxine Sodium* (Synthroid*) 50 Mcg Tablet, 50 MCG PO BEFORE BREAKFAST, #30 TAB 07/05/18 Hydrocodone/Acetaminophen ([place] 5-325 Tablet) 1 Each Tablet, 1 EACH PO Q6 PRN for PAIN, TAB 07/05/18 [place]-3 Fatty Acids/Fish Oil (Fish Oil 1,000 mg Capsule) 1 Each Capsule, 1 EACH PO DAILY, CAP 07/05/18 Cyanocobalamin* (Vitamin B-12*) 50 Mcg Tablet, 50 MCG PO DAILY, TAB 07/05/18 Clopidogrel Bisulfate (Clopidogrel) 75 Mg Tablet, 75 MG PO DAILY, #30 TAB 07/05/18 Atorvastatin Calcium* (Atorvastatin Calcium*) 20 Mg Tablet, 20 MG PO QHS, #30 TAB 07/05/18 Aspirin* (Aspirin* EC) 81 Mg Tablet.dr, 81 MG PO DAILY, TAB 07/05/18 Artificial Tears* (Akwa Oint*) 3.5 Gm Oint, 1 APPLIC BOTH EYES Q1H PRN for DRY EYES, #1 TUB 07/05/18 Albuterol Sulfate (Proair Respiclick) 90 Mcg Aer.pow.ba, 2 PUFFS INHALATION Q4 PRN for WHEEZING, BOTTLE 07/05/18 Medications Current Medications IV Flush (NS 3 ml) 3 ml PER PROTOCOL IV ; Start 07/29/18 at 06:30 Ondansetron HCl (Zofran Inj) 4 mg Q6H PRN IV NAUSEA/VOMITING Last administered on 08/02/18at 19:33; Admin Dose 4 MG; Start 07/29/18 at 06:30 Acetaminophen (Tylenol Tab) 650 mg Q6H PRN PO .PAIN 1-3 OR TEMP Last administered on 08/04/18 12:11; Admin Dose 650 MG; Start 07/29/18 at 06:30 Acetaminophen/ Hydrocodone Bitart ([place] (5/325)) 1 tab Q6H PRN PO .MOD PAIN 4- 6; Start 07/29/18 at 06:30 Pantoprazole (Protonix Tab) 40 mg DAILY@06 PO Last administered on 08/04/18at 05:30; Admin Dose 40 MG; Start 07/29/18 at 06:30 Enoxaparin Sodium (Lovenox) 30 mg DAILY SC Last administered on 08/04/18at 08:26; Admin Dose 30 MG; Start 07/29/18 at 09:00 Diagnostic Test (Pha) (Accu-Chek) 1 ea 02 XX ; Start 07/30/18 at 02:00 Insulin Aspart (Novolog Insulin Pen) NOVOLOG *MODERATE* ALGORITHM WITH MEALS BEDTIME SC Last administered on 08/04/18 12:14; Admin Dose 2 UNIT; Start 07/29/18 at 07:55 Acetaminophen (Tylenol Tab) 650 mg Q6H PRN PO .PAIN 1-3 OR TEMP Last administered on 08/02/18at 11:53; Admin Dose 650 MG; Start 07/29/18 at 07:00 Eye Lubricant (Akwa Oint) 1 applic Q1H PRN BOTH EYES DRY EYES; Start 07/29/18 at 08:00 Aspirin (Halfprin) 81 mg DAILY PO Last administered on 08/04/18 08:23; Admin Dose 81 MG; Start 07/29/18 at 09:00 Atorvastatin Calcium (Lipitor) 20 mg QHS PO Last administered on 08/03/18at 21:57; Admin Dose 20 MG; Start 07/29/18 at 21:00 Clopidogrel Bisulfate (plaVIX) 75 mg DAILY PO Last administered on 08/04/18 08:24; Admin Dose 75 MG; Start 07/29/18 at 09:00 Cyanocobalamin (Vitamin B12) 50 mcg DAILY PO Last administered on 08/04/18 08:24; Admin Dose 50 MCG; Start 07/29/18 at 09:00 Levothyroxine Sodium (Synthroid) 50 mcg BEFORE BREAKFAST PO Last administered on 08/04/18 05:31; Admin Dose 50 MCG; Start 07/29/18 at 07:00 Metoprolol Succinate (Toprol Xl) 25 mg BID PO Last administered on 08/04/18 08:24; Admin Dose 25 MG; Start 07/29/18 at 09:00 Polyethyl Glycol/ Propylene Glycol (Systane 0.3-0.4% Eye Drops) 1 drop Q4H PRN BOTH EYES DRY EYES; Start 07/29/18 at 08:00 Albuterol (Ventolin Hfa) 2 puff Q4H RESP THERAPY PRN INH WHEEZING; Start 07/29/18 at 09:00 Miscellaneous Information 1 ea NOTE XX ; Start 07/29/18 at 07:00 Glucose (Glutose) 15 gm Q15M PRN PO DECREASED GLUCOSE; Start 07/29/18 at 07:00 Glucose (Glutose) 22.5 gm Q15M PRN PO DECREASED GLUCOSE; Start 07/29/18 at 07:00 Dextrose (D50w Syringe) 25 ml Q15M PRN IV DECREASED GLUCOSE; Start 07/29/18 at 0 7:00 Dextrose (D50w Syringe) 50 ml Q15M PRN IV DECREASED GLUCOSE; Start 07/29/18 at 07:00 Glucagon (Glucagen) 1 mg Q15M PRN IM DECREASED GLUCOSE; Start 07/29/18 at 07:00 Glucose (Glutose) 15 gm Q15M PRN BUCCAL DECREASED GLUCOSE; Start 07/29/18 at 07:00 Alprazolam (Xanax) 0.25 mg Q8H PRN PO ANXIETY Last administered on 08/03/18at 22:03; Admin Dose 0.25 MG; Start 07/29/18 at 12:30 Polyethylene Glycol (Miralax) 17 gm DAILY PO Last administered on 08/04/18at 08:24; Admin Dose 17 GM; Start 07/29/18 at 12:30 Docusate Sodium (Colace) 100 mg BID PO Last administered on 08/04/18 08:23; Admin Dose 100 MG; Start 07/31/18 at 21:00 Magnesium Hydroxide (Milk Of Mag) 30 ml Q12H PRN PO STOMACH UPSET/CRAMPING Last administered on 07/31/18at 21:28; Admin Dose 30 ML; Start 07/31/18 at 20:00 Al Hydrox/Mg Hydrox/Simethicone (Mag-Al Plus) 30 ml Q6H PRN PO GASTROINTESTINAL UPSET Last administered on 08/03/18at 17:33; Admin Dose 30 ML; Start 08/03/18 at 17:30 Allergies: Coded Allergies: levofloxacin (Verified Allergy, Unknown, 07/05/18) Social History Alcohol Use: none Smoking Status: Never smoker Drug Use: none Exam/Review of Systems Exam Vitals Vital Signs Date Temp Pulse Resp B/P (MAP) Pulse Ox O2 O2 Flow FiO2 Time Delivery Rate 08/04/18 97.5 81 20 110/65 96 07:54 (80) 08/03/18 Room Air 14:23 Intake and Output 08/03/18 08/03/18 08/04/18 1515:00 23:00 07:00 IntakeIntake Total 120 ml 360 ml BalanceBalance 120 ml 360 ml Constitutional: alert, frail Psych: anxiety, confusion Head: normocephalic, atraumatic Eyes: nl conjunctiva Neck: supple Respiratory: clear to auscultation, normal air movement Cardiovascular: regular rate and rhythm Gastrointestinal: soft, nl liver, spleen, non-tender Musculoskeletal: nl extremities to inspection Extremities: normal pulses Neurological: confused Skin: nl turgor Results Result Diagram: 08/04/18 04308/04/18 0430 Results 24hrs Laboratory Tests Test 08/03/18 17:32 08/03/18 22:03 08/04/18 04:30 08/04/18 08:20 Bedside Glucose 191 148 154 White Blood Count 11.0 H Red Blood Count 3.09 L Hemoglobin 8.8 L Hematocrit 27.2 L Mean Corpuscular Volume 88.0 Mean Corpuscular 28.5 L Hemoglobin Mean Corpuscular 32.4 Hemoglobin Concent Red Cell Distribution 15.7 H Width Platelet Count 662 H Mean Platelet Volume 9.4 Immature Granulocytes % 0.500 H Neutrophils % 66.5 Lymphocytes % 19.8 Monocytes % 11.6 H Eosinophils % 1.3 Basophils % 0.3 Nucleated Red Blood 0.0 Cells % Immature Granulocytes # 0.060 H Neutrophils # 7.3 Lymphocytes # 2.2 Monocytes # 1.3 H Eosinophils # 0.1 Basophils # 0.0 Nucleated Red Blood 0.0 Cells # Sodium Level 137 Potassium Level 4.4 Chloride Level 104 Carbon Dioxide Level 24 Anion Gap 9 Blood Urea Nitrogen 40 H Creatinine 1.45 H Est Glomerular Filtrat 36 L Rate mL/min Glucose Level 140 Calcium Level 9.0 Test 08/04/18 12:07 Bedside Glucose 172 Imaging Imaging 08/03/18 MRI pelvis: IMPRESSION: Irregular 9 cm exophytic posterior uterus mass which has similar signal characteristics as a uterine fibroid except for its large size, cystic change and irregular shape. One possible differential is leiomyosarcoma. Recommend tissue sampling. Bilateral hydrosalpinx, likely from obstruction by the aforementioned mass. Prominent 1 cm right external iliac node. Constipation. 08/01/18 CT abdomen pelvis IMPRESSION: 1. Abnormal enlargement of the uterus with significant thickening of the endometrial stripe versus large amount fluid within the endometrial canal with abnormally enlarged bilateral ovaries. Consider further evaluation with MRI and gynecologic consult. 2. Large amount of stool throughout the colon likely due to compression of the rectum by the enlarged uterus. 3. Small to moderate size right-sided pleural effusion. 4. Indeterminate two liver lesions as detailed above. Metastatic disease in the differential diagnosis. Consider further evaluation with abdominal MRI with contrast. 5. Prominent subcentimeter retroperitoneal lymph nodes. Medications Medication Current Medications IV Flush (NS 3 ml) 3 ml PER PROTOCOL IV ; Start 07/29/18 at 06:30 Ondansetron HCl (Zofran Inj) 4 mg Q6H PRN IV NAUSEA/VOMITING Last administered on 08/02/18 19:33; Admin Dose 4 MG; Start 07/29/18 at 06:30 Acetaminophen (Tylenol Tab) 650 mg Q6H PRN PO .PAIN 1-3 OR TEMP Last administered on 08/04/18 12:11; Admin Dose 650 MG; Start 07/29/18 at 06:30 Acetaminophen/ Hydrocodone Bitart ([place] (5/325)) 1 tab Q6H PRN PO .MOD PAIN 4- 6; Start 07/29/18 at 06:30 Pantoprazole (Protonix Tab) 40 mg DAILY@06 PO Last administered on 08/04/18 05:30; Admin Dose 40 MG; Start 07/29/18 at 06:30 Enoxaparin Sodium (Lovenox) 30 mg DAILY SC Last administered on 08/04/18 08:26; Admin Dose 30 MG; Start 07/29/18 at 09:00 Diagnostic Test (Pha) (Accu-Chek) 1 ea 02 XX ; Start 07/30/18 at 02:00 Insulin Aspart (Novolog Insulin Pen) NOVOLOG *MODERATE* ALGORITHM WITH MEALS BEDTIME SC Last administered on 08/04/18 12:14; Admin Dose 2 UNIT; Start 07/29/18 at 07:55 Acetaminophen (Tylenol Tab) 650 mg Q6H PRN PO .PAIN 1-3 OR TEMP Last administered on 08/02/18 11:53; Admin Dose 650 MG; Start 07/29/18 at 07:00 Eye Lubricant (Akwa Oint) 1 applic Q1H PRN BOTH EYES DRY EYES; Start 07/29/18 at 08:00 Aspirin (Halfprin) 81 mg DAILY PO Last administered on 08/04/18 08:23; Admin Dose 81 MG; Start 07/29/18 at 09:00 Atorvastatin Calcium (Lipitor) 20 mg QHS PO Last administered on 08/03/18 21:57; Admin Dose 20 MG; Start 07/29/18 at 21:00 Clopidogrel Bisulfate (plaVIX) 75 mg DAILY PO Last administered on 08/04/18 08:24; Admin Dose 75 MG; Start 07/29/18 at 09:00 Cyanocobalamin (Vitamin B12) 50 mcg DAILY PO Last administered on 08/04/18 08:24; Admin Dose 50 MCG; Start 07/29/18 at 09:00 Levothyroxine Sodium (Synthroid) 50 mcg BEFORE BREAKFAST PO Last administered on 08/04/18 05:31; Admin Dose 50 MCG; Start 07/29/18 at 07:00 Metoprolol Succinate (Toprol Xl) 25 mg BID PO Last administered on 08/04/18 08:24; Admin Dose 25 MG; Start 07/29/18 at 09:00 Polyethyl Glycol/ Propylene Glycol (Systane 0.3-0.4% Eye Drops) 1 drop Q4H PRN BOTH EYES DRY EYES; Start 07/29/18 at 08:00 Albuterol (Ventolin Hfa) 2 puff Q4H RESP THERAPY PRN INH WHEEZING; Start 07/29/18 at 09:00 Miscellaneous Information 1 ea NOTE XX ; Start 07/29/18 at 07:00 Glucose (Glutose) 15 gm Q15M PRN PO DECREASED GLUCOSE; Start 07/29/18 at 07:00 Glucose (Glutose) 22.5 gm Q15M PRN PO DECREASED GLUCOSE; Start 07/29/18 at 07:00 Dextrose (D50w Syringe) 25 ml Q15M PRN IV DECREASED GLUCOSE; Start 07/29/18 at 07:00 Dextrose (D50w Syringe) 50 ml Q15M PRN IV DECREASED GLUCOSE; Start 07/29/18 at 07:00 Glucagon (Glucagen) 1 mg Q15M PRN IM DECREASED GLUCOSE; Start 07/29/18 at 07:00 Glucose (Glutose) 15 gm Q15M PRN BUCCAL DECREASED GLUCOSE; Start 07/29/18 at 07:00 Alprazolam (Xanax) 0.25 mg Q8H PRN PO ANXIETY Last administered on 08/03/18at 22:03; Admin Dose 0.25 MG; Start 07/29/18 at 12:30 Polyethylene Glycol (Miralax) 17 gm DAILY PO Last administered on 08/04/18 08:24; Admin Dose 17 GM; Start 07/29/18 at 12:30 Docusate Sodium (Colace) 100 mg BID PO Last administered on 08/04/18 08:23; Admin Dose 100 MG; Start 07/31/18 at 21:00 Magnesium Hydroxide (Milk Of Mag) 30 ml Q12H PRN PO STOMACH UPSET/CRAMPING Last administered on 07/31/18at 21:28; Admin Dose 30 ML; Start 07/31/18 at 20:00 Al Hydrox/Mg Hydrox/Simethicone (Mag-Al Plus) 30 ml Q6H PRN PO GASTROINTESTINAL UPSET Last administered on 08/03/18at 17:33; Admin Dose 30 ML; Start 08/03/18 at 17:30 SILVIO MCKEON FITNESS COORDINATOR Aug 04, 2018 14:47
[2018-08-04 19:24] VITALS: BP 91/50; PULSE 76; RESP 18
--- NOTE | 2018-08-04 19:48 | ERD ---
DATE OF SERVICE: 08/04/2018 HISTORY OF PRESENT ILLNESS: This is a 68-year-old female, para 2, who was admitted 07/29/2018 for ne w onset of congestive heart failure. The patient had history of stroke and significant peripheral va scular disease. The patient has been seen by GI, vascular surgery, and also gynecology. During work up, she was found to have a pelvic mass and liver lesion. The CT scan was without contrast. Liver lesion shows a 4.3 x 3.1 cm hypodense mass, indeterminate. The pelvic mass was further clarified with MRI of the pelvis with contrast, which showed a lobular ex ophytic mass in the cul-de-sac measuring 9 x 9 x 6 cm, appeared to be attached to the posterior uteri ne body. Her endometrial lining is normal at 2 mm. There was bilateral hydrosalpinx. There is a pr ominent left external iliac lymph node 1 cm. Tumor markers were also drawn. CA-125 was elevated at 114. CA 19-9 is at 334. CEA was not ordered. The patient denied any vaginal bleeding. Due to the pelvic mass and possible liver lesion, HUM[employer]CT[employer] ADVISOR LEAD oncology consultation was obtained. The patient also had lower extremity Doppler that did not show any active DVT. INTENSIVE MEDICAL HISTORY: The patient has a history of peripheral vascular disease. She also had a history of stroke in 2006. She has a baseline dementia and also diabetes, dyslipidemia, and hypothy roidism. ALLERGIES: LEVAQUIN. PAST SURGICAL HISTORY: Significant for bilateral carotid endarterectomy and she also had bilateral c ataract surgeries. SOCIAL HISTORY: Noncontributory. REVIEW OF SYSTEMS: Denies any vaginal bleeding. Does have some shortness of breath and lower extrem ity edema. PHYSICAL EXAMINATION: VITAL SIGNS: The patient is afebrile, pulse in the 90s, blood pressure within normal limits, and oxy gen saturation 100% on room air. GENERAL: The patient has been thin, not quite cachectic. HEENT: Within normal limits. LUNGS: Clear. ABDOMEN: Soft. EXTREMITIES: Some pitting edema. SKIN: There is some erythema at the level of the knee. PELVIC: Deferred for now. IMPRESSION: 1. Multiple medical comorbidities. 2. Pedunculated uterine mass. 3. Elevated CA-125 and elevated CA 19-9. RECOMMENDATIONS: 1. I do recommend MRI of the liver with contrast to better delineate the liver lesion. If the lesio n is suspicious, I recommend percutaneous biopsy to document metastases. 2. The patient is at high surgical risk due to medical comorbidities. It seems that patient may req uire exploratory laparotomy and removal of the pelvic mass. 3. The patient needs to be optimized and medically clear for potential surgery. 4. If workup is all complete, the patient can be discharged and bring back for elective operation. 5. I will discuss further with the patient's son regarding the overall plan. Dictated By: GIACOMO CANO MD WL/NTS Conf#: [id number] DID#: [id number] CC: SANDRA AGUILERA MD; TAN MAIER MD;*EndCC*
[2018-08-04] MEDS: AL HYDROX/MG HYDROX/SIMETH 30 ML CUP PO PRN (20:31)
[2018-08-04] MEDS: ATORVASTATIN 20 MG TAB PO SCH (20:32)
[2018-08-04] MEDS: ALPRAZOLAM 0.25 MG TAB PO PRN (20:38)
[2018-08-04] MEDS ORDERED: METOCLOPRAMIDE 10 MG INJ IV ONE (22:00)
[2018-08-05] VITALS (9 sets, daily range): BP systolic 81–118; BP diastolic 42–57; PULSE 66–96; RESP 17–20
[2018-08-05] MEDS: ACCU-CHEK XX SCH (02:00)
[2018-08-05] MEDS: PANTOPRAZOLE (EC) 40 MG TAB PO SCH (06:00)
[2018-08-05] MEDS: INSULIN ASPART [NOVOLOG] 3 ML PEN SC SCH ×4 (08:00→21:00)
[2018-08-05] MEDS: POLYETHYLENE GLYCOL 17 GM PACKET PO SCH (08:09)
[2018-08-05] MEDS: CLOPIDOGREL 75 MG TAB PO SCH (08:09)
[2018-08-05] MEDS: DOCUSATE SODIUM 100 MG CAP PO SCH ×2 (08:09→21:17)
[2018-08-05] MEDS: CYANOCOBALAMIN 100 MCG TAB PO SCH (08:10)
[2018-08-05] MEDS: ASPIRIN (EC) 81 MG TAB PO SCH (08:10)
[2018-08-05] MEDS: LEVOTHYROXINE 50 MCG TAB PO SCH (08:10)
[2018-08-05] MEDS: METOPROLOL (XL) 25 MG TAB PO SCH ×2 (08:10→21:17)
[2018-08-05] MEDS: ENOXAPARIN 30 MG/0.3 ML SYG SC SCH (08:18)
--- NOTE | 2018-08-05 09:03 | PN ---
DATE: 08/05/2018 SUBJECTIVE: The patient is stable, no events overnight. No fevers, chills, nausea, vomiting. OBJECTIVE: VITAL SIGNS: Blood pressure is 99/57, respirations 17, pulse 86, temperature 98.3. HEENT: Head is normocephalic. NECK: Supple. HEART: Regular rate. LUNGS: Show diminished breath sounds at the base. ABDOMEN: Soft, nontender to palpation without rebound or guarding. EXTREMITIES: Negative for clubbing, cyanosis, no edema. DERMATOLOGIC: No rashes. MUSCULOSKELETAL: No joint effusion. NEUROLOGIC: No change in exam. MEDICATIONS: The patient's medications have been reviewed. LABORATORY DATA: Has been reviewed. IMAGING STUDIES: Have been reviewed. CULTURES: Cultures have been reviewed. ASSESSMENT AND PLAN: 1. Nonoliguric acute kidney injury with previous baseline creatinine of 0.9 per deciliter. Etiology of acute kidney injury is secondary to hemodynamics, DELBERT inhibitor effect, diuretics. The patient's renal function has initially improved; however, has declined in the last 24 hours, likely due to hem odynamics, decreased oral intake, nausea and vomiting. The patient will be started on IV hydration. Will continue to monitor renal function closely. 2. Anemia. Monitor H and H levels. 3. Mineral bone disorder. Monitor calcium and phosphorus levels. 4. Peripheral vascular disease. Continue to monitor. 5. Lower extremity edema, etiology is likely due to venous insufficiency. The patient's 2D echo was reviewed. Continue to monitor. 6. Abdominal mass. 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 Continue to monitor. Follow up with [employer]. 7. Diabetes. Continue current insulin regimen. 8. Hypothyroidism. Continue Synthroid. Dictated By: JACOB BROCK DO NR/NTS Conf#: [id number] DID#: [id number] CC: SANDRA AGUILERA MD; TAN MAIER MD;*[facility]*
[2018-08-05] MEDS: SOD CHLORIDE 0.9% 1,000 ML IV SCH (09:07)
--- NOTE | 2018-08-05 09:19 | PN ---
Date/Time of Note Date/Time of Note DATE: 08/05/18 TIME: 09:15 Assessment/Plan VTE Prophylaxis Risk score (from Nsg)>0 risk: 3 SCD applied (from Nsg): Yes Pharmacological prophylaxis: LMWH Lines/Catheters IV Catheter Type (from Nrsg): Saline Lock Urinary Cath still in place: No Assessment/Plan Hospital Course Assessment/Plan 1. Pelvic Mass - Patient with elevated CA 19-9 & CA 125 - pelvic u.s.: There is a 5.0 x 5.4 cm mass along the posterior margin of the uterus - [employer] consultation - eval pending - discussed with nephrology, will get MRI pelvic with contrast for furtherAssessment/Plan 1. Pelvic Mass - Patient with elevated CA 19-9 & CA 125 - pelvic u.s.: There is a 5.0 x 5.4 cm mass along the posterior margin of the uterus - [employer] consultation - eval pending - discussed with nephrology, will get MRI pelvic with contrast for further evaluation - MRI 08/03/18: Irregular 9 cm exophytic posterior uterus mass which has similar signal characteristics as a uterine fibroid except for its large size, cystic change and irregular shape. One possible differential is leiomyosarcoma. Recommend tissue sampling. 2. PAD - Lower leg edema, orthopnea - mproving - optimize on cardiovascular medications. ACEI on hold due to edilma - continue diuresis - echo: EF at 70% with stage 1 diastolic dysfunction - vascular surgeon following 3. EDILMA - avoid nephrotoxic medications as possible - monitor renal panel - improving 4. Anorexia/Weight loss -unable to tolerate oral intake - will get GI consult - Small frequent meals - dietitian consult 5. Peripheral vascular disease - Continue aspirin, plavix - Patient has appointment with Dr. Maldonado on August 08 - Surgeon notified about patient's hospitalization - Vascular surgeon following 5. Non-insulin dependent diabetes - continue insulin regimen. will adjust as needed - HgbA1C: 6.3 6 Hypothyroid - continue levothyroxine. DISPO/PLAN: f/u gastric emptying study. Await improvement of renal function. Plan for elective operation for pelvic mass Discussed POC with Dr. Grover Result Diagram: 08/05/18 0420 08/05/18 0420 Results 24hrs Laboratory Tests Test 08/04/18 12:07 08/04/18 18:04 08/04/18 20:49 08/04/18 22:18 Bedside Glucose 172 145 209 225 H Test 08/05/18 02:25 08/05/18 04:20 08/05/18 08:04 Bedside Glucose 147 131 White Blood Count 13.7 #H Red Blood Count 2.87 L Hemoglobin 8.2 L Hematocrit 24.8 L Mean Corpuscular Volume 86.4 Mean Corpuscular 28.6 L Hemoglobin Mean Corpuscular 33.1 Hemoglobin Concent Red Cell Distribution 15.5 H Width Platelet Count 621 H Mean Platelet Volume 9.6 Immature Granulocytes % 0.700 H Neutrophils % 60.0 Lymphocytes % 23.2 Monocytes % 14.5 H Eosinophils % 1.3 Basophils % 0.3 Nucleated Red Blood 0.0 Cells % Immature Granulocytes # 0.090 H Neutrophils # 8.2 H Lymphocytes # 3.2 H Monocytes # 2.0 H Eosinophils # 0.2 Basophils # 0.0 Nucleated Red Blood 0.0 Cells # Sodium Level 135 Potassium Level 3.7 Chloride Level 99 Carbon Dioxide Level 28 Anion Gap 8 Blood Urea Nitrogen 47 H Creatinine 1.72 H Est Glomerular Filtrat 29 L Rate mL/min Glucose Level 118 Calcium Level 8.7 Subjective 24 Hr Interval Summary Free Text/Dictation no s/s of distress . still with poor oral intake Exam/Review of Systems Exam Vitals Vital Signs Date Temp Pulse Resp B/P (MAP) Pulse Ox O2 O2 Flow FiO2 Time Delivery Rate 08/05/18 98.3 86 17 99/57 (71) 97 Room Air 07:56 Intake and Output 08/04/18 08/04/18 08/05/18 1515:00 23:00 07:00 IntakeIntake Total 1380 ml 360 ml BalanceBalance 1380 ml 360 ml Exam Constitutional: alert; No oriented Psych: anxiety Head: normocephalic Neck: supple, non-tender Respiratory: diminished breath sounds Cardiovascular: other (regular rate ) Gastrointestinal: soft, minimally tender on palpation Musculoskeletal: swelling ble, more on rle Neurological: nl speech; No nl mental status Results Results 24hrs Laboratory Tests Test 08/04/18 12:07 08/04/18 18:04 08/04/18 20:49 08/04/18 22:18 Bedside Glucose 172 145 209 225 H Test 08/05/18 02:25 08/05/18 04:08/05/18 08:04 Bedside Glucose 147 131 White Blood Count 13.7 #H Red Blood Count 2.87 L Hemoglobin 8.2 L Hematocrit 24.8 L Mean Corpuscular Volume 86.4 Mean Corpuscular 28.6 L Hemoglobin Mean Corpuscular 33.1 Hemoglobin Concent Red Cell Distribution 15.5 H Width Platelet Count 621 H Mean Platelet Volume 9.6 Immature Granulocytes % 0.700 H Neutrophils % 60.0 Lymphocytes % 23.2 Monocytes % 14.5 H Eosinophils % 1.3 Basophils % 0.3 Nucleated Red Blood 0.0 Cells % Immature Granulocytes # 0.090 H Neutrophils # 8.2 H Lymphocytes # 3.2 H Monocytes # 2.0 H Eosinophils # 0.2 Basophils # 0.0 Nucleated Red Blood 0.0 Cells # Sodium Level 135 Potassium Level 3.7 Chloride Level 99 Carbon Dioxide Level 28 Anion Gap 8 Blood Urea Nitrogen 47 H Creatinine 1.72 H Est Glomerular Filtrat 29 L Rate mL/min Glucose Level 118 Calcium Level 8.7 Medications Medication Current Medications IV Flush (NS 3 ml) 3 ml PER PROTOCOL IV ; Start 07/29/18 at 06:30 Ondansetron HCl (Zofran Inj) 4 mg Q6H PRN IV NAUSEA/VOMITING Last administered on 08/02/18at 19:33; Admin Dose 4 MG; Start 07/29/18 at 06:30 Acetaminophen (Tylenol Tab) 650 mg Q6H PRN PO .PAIN 1-3 OR TEMP Last administered on 08/04/18at 20:51; Admin Dose 650 MG; Start 07/29/18 at 06:30 Acetaminophen/ Hydrocodone Bitart ([place] (5/325)) 1 tab Q6H PRN PO .MOD PAIN 4- 6; Start 07/29/18 at 06:30 Pantoprazole (Protonix Tab) 40 mg DAILY@06 PO Last administered on 08/04/18at 05:30; Admin Dose 40 MG; Start 07/29/18 at 06:30 Enoxaparin Sodium (Lovenox) 30 mg DAILY SC Last administered on 08/05/18at 08:18; Admin Dose 30 MG; Start 07/29/18 at 09:00 Diagnostic Test (Pha) (Accu-Chek) 1 ea 02 XX ; Start 07/30/18 at 02:00 Insulin Aspart (Novolog Insulin Pen) NOVOLOG *MODERATE* ALGORITHM WITH MEALS BEDTIME SC Last administered on 08/04/18 22:22; Admin Dose 2 UNIT; Start 07/29 at 07:55 Acetaminophen (Tylenol Tab) 650 mg Q6H PRN PO .PAIN 1-3 OR TEMP Last administered on 08/02/18 11:53; Admin Dose 650 MG; Start 07/29/18 at 07:00 Eye Lubricant (Akwa Oint) 1 applic Q1H PRN BOTH EYES DRY EYES; Start 07/29/18 at 08:00 Aspirin (Halfprin) 81 mg DAILY PO Last administered on 08/05/18 08:10; Admin Dose 81 MG; Start 07/29/18 at 09:00 Atorvastatin Calcium (Lipitor) 20 mg QHS PO Last administered on 08/04/18 20:32; Admin Dose 20 MG; Start 07/29/18 at 21:00 Clopidogrel Bisulfate (plaVIX) 75 mg DAILY PO Last administered on 08/05/18 08:09; Admin Dose 75 MG; Start 07/29/18 at 09:00 Cyanocobalamin (Vitamin B12) 50 mcg DAILY PO Last administered on 08/05/18 08:10; Admin Dose 50 MCG; Start 07/29/18 at 09:00 Levothyroxine Sodium (Synthroid) 50 mcg BEFORE BREAKFAST PO Last administered on 08/05/18 08:10; Admin Dose 50 MCG; Start 07/29/18 at 07:00 Metoprolol Succinate (Toprol Xl) 25 mg BID PO Last administered on 08/04/18 08:24; Admin Dose 25 MG; Start 07/29/18 at 09:00 Polyethyl Glycol/ Propylene Glycol (Systane 0.3-0.4% Eye Drops) 1 drop Q4H PRN BOTH EYES DRY EYES; Start 07/29/18 at 08:00 Albuterol (Ventolin Hfa) 2 puff Q4H RESP THERAPY PRN INH WHEEZING; Start 07/29/18 at 09:00 Miscellaneous Information 1 ea NOTE XX ; Start 07/29/18 at 07:00 Glucose (Glutose) 15 gm Q15M PRN PO DECREASED GLUCOSE; Start 07/29/18 at 07:00 Glucose (Glutose) 22.5 gm Q15M PRN PO DECREASED GLUCOSE; Start 07/29/18 at 07:00 Dextrose (D50w Syringe) 25 ml Q15M PRN IV DECREASED GLUCOSE; Start 07/29/18 at 07:00 Dextrose (D50w Syringe) 50 ml Q15M PRN IV DECREASED GLUCOSE; Start 07/29/18 at 07:00 Glucagon (Glucagen) 1 mg Q15M PRN IM DECREASED GLUCOSE; Start 07/29/18 at 07:00 Glucose (Glutose) 15 gm Q15M PRN BUCCAL DECREASED GLUCOSE; Start 07/29/18 at 07:00 Alprazolam (Xanax) 0.25 mg Q8H PRN PO ANXIETY Last administered on 08/04/18at 20:38; Admin Dose 0.25 MG; Start 07/29/18 at 12:30 Polyethylene Glycol (Miralax) 17 gm DAILY PO Last administered on 08/05/18 08:09; Admin Dose 17 GM; Start 07/29/18 at 12:30 Docusate Sodium (Colace) 100 mg BID PO Last administered on 08/05/18 08:09; Admin Dose 100 MG; Start 07/31/18 at 21:00 Magnesium Hydroxide (Milk Of Mag) 30 ml Q12H PRN PO STOMACH UPSET/CRAMPING Last administered on 07/31/18at 21:28; Admin Dose 30 ML; Start 07/31/18 at 20:00 Al Hydrox/Mg Hydrox/Simethicone (Mag-Al Plus) 30 ml Q6H PRN PO GASTROINTESTINAL UPSET Last administered on 08/04/18at 20:31; Admin Dose 30 ML; Start 08/03/18 at 17:30 Sodium Chloride 1,000 ml @ 50 mls/hr Q20H IV ; Start 08/05/18 at 08:30 FIDE MAGUIRE NP Aug 05, 2018 09:19
--- NOTE | 2018-08-05 14:16 | PN ---
Date/Time of Note Date/Time of Note DATE: 08/05/18 TIME: 14:11 Assessment/Plan VTE Prophylaxis Risk score (from Nsg)>0 risk: 4 SCD applied (from Nsg): Yes Pharmacological prophylaxis: heparin Lines/Catheters IV Catheter Type (from Nrsg): Peripheral IV Urinary Cath still in place: No Assessment/Plan Assessment/Plan Assessment: Constipation - large amounts of retained stool on imaging - possible compression of rectum by the uterine mass Anorexia with decreased oral intake Abdominal pain Weight loss of 20 lbs - likely related to malignancy vs gastroparesis Uterine mass - possible malignancy on MRI Elevated CA 19-9 and CA 125 EDILMA Diabetes Hypothyroidism Hx of peripheral artery disease Plan: Plan for MRI with contrast when kidney function improves to evaluate uterine/pelvic mass Gastric emptying study pending Continue bowel regimen Continue reglan 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 Patient seen in collaboration with Dr. Boswell. Subjective: The patient reports a bowel movement following the enema yesterday and multiple bowel movements noted per nurse and chart review. Denies further abdominal pain. Tolerating diet. Denies nausea or vomiting. Gastric emptying study pending. Discussed treatment plan with patient's son. Result Diagram: 08/05/18 0420 08/05/18 0420 Results 24hrs Laboratory Tests Test 08/04/18 18:04 08/04/18 20:49 08/04/18 22:18 08/05/18 02:25 Bedside Glucose 145 209 225 H 147 Test 08/05/18 04:20 08/05/18 08:04 08/05/18 13:09 White Blood Count 13.7 #H Red Blood Count 2.87 L Hemoglobin 8.2 L Hematocrit 24.8 L Mean Corpuscular Volume 86.4 Mean Corpuscular 28.6 L Hemoglobin Mean Corpuscular 33.1 Hemoglobin Concent Red Cell Distribution 15.5 H Width Platelet Count 621 H Mean Platelet Volume 9.6 Immature Granulocytes % 0.700 H Neutrophils % 60.0 Lymphocytes % 23.2 Monocytes % 14.5 H Eosinophils % 1.3 Basophils % 0.3 Nucleated Red Blood 0.0 Cells % Immature Granulocytes # 0.090 H Neutrophils # 8.2 H Lymphocytes # 3.2 H Monocytes # 2.0 H Eosinophils # 0.2 Basophils # 0.0 Nucleated Red Blood 0.0 Cells # Sodium Level 135 Potassium Level 3.7 Chloride Level 99 Carbon Dioxide Level 28 Anion Gap 8 Blood Urea Nitrogen 47 H Creatinine 1.72 H Est Glomerular Filtrat 29 L Rate mL/min Glucose Level 118 Calcium Level 8.7 Carcinoembryonic Antigen 3.9 Bedside Glucose 131 194 CC: MICHELLE BOSWELL MD ; Exam/Review of Systems Exam Vitals Vital Signs Date Temp Pulse Resp B/P (MAP) Pulse Ox O2 O2 Flow FiO2 Time Delivery Rate 08/05/18 98.3 86 17 99/57 (71) 97 Room Air 07:56 Intake and Output 08/04/18 08/04/18 08/05/18 1515:00 23:00 07:00 IntakeIntake Total 1380 ml 360 ml BalanceBalance 1380 ml 360 ml Constitutional: alert, oriented Psych: no complaints, nl mood/affect Head: normocephalic, atraumatic Eyes: nl conjunctiva ENMT: nl external ears & nose, nl lips & teeth Neck: supple, non-tender Respiratory: clear to auscultation Cardiovascular: regular rate and rhythm, nl pulses Gastrointestinal: soft, non-tender Musculoskeletal: nl extremities to inspection Extremities: normal pulses Skin: nl turgor Results Results 24hrs Laboratory Tests Test 08/04/18 18:04 08/04/18 20:49 08/04/18 22:18 08/05/18 02:25 Bedside Glucose 145 209 225 H 147 Test 08/05/18 04:20 08/05/18 08:04 08/05/18 13:09 White Blood Count 13.7 #H Red Blood Count 2.87 L Hemoglobin 8.2 L Hematocrit 24.8 L Mean Corpuscular Volume 86.4 Mean Corpuscular 28.6 L Hemoglobin Mean Corpuscular 33.1 Hemoglobin Concent Red Cell Distribution 15.5 H Width Platelet Count 621 H Mean Platelet Volume 9.6 Immature Granulocytes % 0.700 H Neutrophils % 60.0 Lymphocytes % 23.2 Monocytes % 14.5 H Eosinophils % 1.3 Basophils % 0.3 Nucleated Red Blood 0.0 Cells % Immature Granulocytes # 0.090 H Neutrophils # 8.2 H Lymphocytes # 3.2 H Monocytes # 2.0 H Eosinophils # 0.2 Basophils # 0.0 Nucleated Red Blood 0.0 Cells # Sodium Level 135 Potassium Level 3.7 Chloride Level 99 Carbon Dioxide Level 28 Anion Gap 8 Blood Urea Nitrogen 47 H Creatinine 1.72 H Est Glomerular Filtrat 29 L Rate mL/min Glucose Level 118 Calcium Level 8.7 Carcinoembryonic Antigen 3.9 Bedside Glucose 131 194 Medications Medication Current Medications IV Flush (NS 3 ml) 3 ml PER PROTOCOL IV Last administered on 08/05/18 09:07; Admin Dose 3 ML; Start 07/29/18 at 06:30 Ondansetron HCl (Zofran Inj) 4 mg Q6H PRN IV NAUSEA/VOMITING Last administered on 08/02/18 19:33; Admin Dose 4 MG; Start 07/29/18 at 06:30 Acetaminophen (Tylenol Tab) 650 mg Q6H PRN PO .PAIN 1-3 OR TEMP Last administ ered on 08/04/18 20:51; Admin Dose 650 MG; Start 07/29/18 at 06:30 Acetaminophen/ Hydrocodone Bitart ([place] (5/325)) 1 tab Q6H PRN PO .MOD PAIN 4- 6; Start 07/29/18 at 06:30 Pantoprazole (Protonix Tab) 40 mg DAILY@06 PO Last administered on 08/04/18 05:30; Admin Dose 40 MG; Start 07/29/18 at 06:30 Enoxaparin Sodium (Lovenox) 30 mg DAILY SC Last administered on 08/05/18 08:18; Admin Dose 30 MG; Start 07/29/18 at 09:00 Diagnostic Test (Pha) (Accu-Chek) 1 ea 02 XX ; Start 07/30/18 at 02:00 Insulin Aspart (Novolog Insulin Pen) NOVOLOG *MODERATE* ALGORITHM WITH MEALS BEDTIME SC Last administered on 08/05/18 13:11; Admin Dose 4 UNIT; Start 07/29/18 at 07:55 Acetaminophen (Tylenol Tab) 650 mg Q6H PRN PO .PAIN 1-3 OR TEMP Last administered on 08/02/18 11:53; Admin Dose 650 MG; Start 07/29/18 at 07:00 Eye Lubricant (Akwa Oint) 1 applic Q1H PRN BOTH EYES DRY EYES; Start 07/29/18 at 08:00 Aspirin (Halfprin) 81 mg DAILY PO Last administered on 08/05/18 08:10; Admin Dose 81 MG; Start 07/29/18 at 09:00 Atorvastatin Calcium (Lipitor) 20 mg QHS PO Last administered on 08/04/18at 20:32; Admin Dose 20 MG; Start 07/29/18 at 21:00 Clopidogrel Bisulfate (plaVIX) 75 mg DAILY PO Last administered on 08/05/18 08:09; Admin Dose 75 MG; Start 07/29/18 at 09:00 Cyanocobalamin (Vitamin B12) 50 mcg DAILY PO Last administered on 08/05/18 08:10; Admin Dose 50 MCG; Start 07/29/18 at 09:00 Levothyroxine Sodium (Synthroid) 50 mcg BEFORE BREAKFAST PO Last administered on 08/05/18 08:10; Admin Dose 50 MCG; Start 07/29/18 at 07:00 Metoprolol Succinate (Toprol Xl) 25 mg BID PO Last administered on 08/04/18 08:24; Admin Dose 25 MG; Start 07/29/18 at 09:00 Polyethyl Glycol/ Propylene Glycol (Systane 0.3-0.4% Eye Drops) 1 drop Q4H PRN BOTH EYES DRY EYES; Start 07/29/18 at 08:00 Albuterol (Ventolin Hfa) 2 puff Q4H RESP THERAPY PRN INH WHEEZING; Start 07/29/18 at 09:00 Miscellaneous Information 1 ea NOTE XX ; Start 07/29/18 at 07:00 Glucose (Glutose) 15 gm Q15M PRN PO DECREASED GLUCOSE; Start 07/29/18 at 07:00 Glucose (Glutose) 22.5 gm Q15M PRN PO DECREASED GLUCOSE; Start 07/29/18 at 07:00 Dextrose (D50w Syringe) 25 ml Q15M PRN IV DECREASED GLUCOSE; Start 07/29/18 at 07:00 Dextrose (D50w Syringe) 50 ml Q15M PRN IV DECREASED GLUCOSE; Start 07/29/18 at 07:00 Glucagon (Glucagen) 1 mg Q15M PRN IM DECREASED GLUCOSE; Start 07/29/18 at 07:00 Glucose (Glutose) 15 gm Q15M PRN BUCCAL DECREASED GLUCOSE; Start 07/29/18 at 07:00 Alprazolam (Xanax) 0.25 mg Q8H PRN PO ANXIETY Last administered on 08/04/18 20:38; Admin Dose 0.25 MG; Start 07/29/18 at 12:30 Polyethylene Glycol (Miralax) 17 gm DAILY PO Last administered on 08/05/18 08:09; Admin Dose 17 GM; Start 07/29/18 at 12:30 Docusate Sodium (Colace) 100 mg BID PO Last administered on 08/05/18 08:09; Admin Dose 100 MG; Start 07/31/18 at 21:00 Magnesium Hydroxide (Milk Of Mag) 30 ml Q12H PRN PO STOMACH UPSET/CRAMPING Last administered on 07/31/18 21:28; Admin Dose 30 ML; Start 07/31/18 at 20:00 Al Hydrox/Mg Hydrox/Simethicone (Mag-Al Plus) 30 ml Q6H PRN PO GASTROINTESTINAL UPSET Last administered on 08/04/18 20:31; Admin Dose 30 ML; Start 08/03/18 at 17:30 Sodium Chloride 1,000 ml @ 50 mls/hr Q20H IV Last administered on 08/05/18 09:07; Admin Dose 50 MLS/HR; Start 08/05/18 at 08:30 SILVIO MCKEON NP Aug 05, 2018 14:16
[2018-08-05] MEDS: ACETAMINOPHEN 325 MG TAB PO PRN (21:17)
[2018-08-05] MEDS: ATORVASTATIN 20 MG TAB PO SCH (21:17)
[2018-08-06] MEDS: ACCU-CHEK XX SCH (01:37)
[2018-08-06 02:28] VITALS: BP 95/57; PULSE 78; RESP 18
[2018-08-06] MEDS: PANTOPRAZOLE (EC) 40 MG TAB PO SCH (05:51)
[2018-08-06] MEDS: SOD CHLORIDE 0.9% 1,000 ML IV SCH (05:52)
[2018-08-06] MEDS: LEVOTHYROXINE 50 MCG TAB PO SCH (06:36)
[2018-08-06 07:58] VITALS: BP 108/58; PULSE 76; RESP 20
[2018-08-06] MEDS: INSULIN ASPART [NOVOLOG] 3 ML PEN SC SCH ×5 (08:17→20:47)
[2018-08-06] MEDS ORDERED: POTASSIUM CHLORIDE (SR) 20 MEQ TAB PO STA (08:43)
[2018-08-06] MEDS: METOPROLOL (XL) 25 MG TAB PO SCH ×2 (09:00→20:44)
[2018-08-06] MEDS: POLYETHYLENE GLYCOL 17 GM PACKET PO SCH ×2 (09:00→09:28)
[2018-08-06] MEDS: ASPIRIN (EC) 81 MG TAB PO SCH (09:27)
[2018-08-06] MEDS: CYANOCOBALAMIN 100 MCG TAB PO SCH (09:28)
[2018-08-06] MEDS: DOCUSATE SODIUM 100 MG CAP PO SCH ×2 (09:28→20:44)
[2018-08-06] MEDS: CLOPIDOGREL 75 MG TAB PO SCH (09:29)
[2018-08-06] MEDS: ENOXAPARIN 30 MG/0.3 ML SYG SC SCH (09:32)
--- NOTE | 2018-08-06 09:35 | PN ---
DATE: 08/06/2018 SUBJECTIVE: The patient is stable, no events overnight. OBJECTIVE: VITAL SIGNS: Blood pressure is 108/58, pulse 76, respirations 20, temperature 97.3. HEENT: Head is normocephalic. NECK: Supple. HEART: Regular rate. LUNGS: Show diminished breath sounds at the base. ABDOMEN: Soft, nontender to palpation without rebound or guarding. EXTREMITIES: Negative for clubbing, cyanosis, no edema. DERMATOLOGIC: No rashes. MUSCULOSKELETAL: No joint effusion. NEUROLOGIC: No change in exam. MEDICATIONS: The patient's medications have been reviewed. LABORATORY DATA: Has been reviewed. ASSESSMENT AND PLAN: 1. Nonoliguric acute kidney injury with previous baseline creatinine of 0.9 mg/dL. Etiology of acut e kidney injury is secondary to hemodynamics, DELBERT inhibitor effect, diuretics. The patient's renal f unction has improved with IV fluids. Will continue IV fluids for another 24 hours, continue supporti ve care and renally dose all medications. 2. Anemia. Monitor hemoglobin and hematocrit levels. 3. Hypokalemia. Will replete with potassium chloride. 4. Mineral bone disorder, monitor calcium and phosphorus levels. 5. Peripheral vascular disease. Continue to monitor. 6. Lower extremity edema secondary to venous insufficiency. Continue to monitor. 7. Abdominal mass. The patient is being followed by [facility]. MRI shows evidence of leiomyosarcoma. Continue to monitor. 8. Diabetes. Continue current insulin regimen. 9. Hypothyroidism. Continue Synthroid. Dictated By: JACOB BROCK DO NR/NTS Conf#: [id number] DID#: [id number] CC: TAN MAIER MD; SANDRA AGUILERA MD;*EndCC*
--- NOTE | 2018-08-06 12:26 | PN ---
Date/Time of Note Date/Time of Note DATE: 08/06/18 TIME: 12:15 Assessment/Plan VTE Prophylaxis Risk score (from Ns)>0 risk: 3 SCD applied (from Ns): No SCD contraindicated: other (scds) Pharmacological prophylaxis: other (scds) Lines/Catheters IV Catheter Type (from [facility]): Peripheral IV Urinary Cath still in place: No Assessment/Plan Hospital Course Assessment/Plan Assessment: Constipation - large amounts of retained stool on imaging - possible compression of rectum by the uterine mass Anorexia with decreased oral intake Abdominal pain Weight loss of 20 lbs - likely related to malignancy vs gastroparesis- less likely Uterine mass - possible malignancy on MRI Elevated CA 19-9 and CA 125 EDILMA Diabetes Hypothyroidism Hx of peripheral artery disease Plan: Gastric emptying study pending Continue bowel regimen Continue 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 Patient seen in collaboration with Dr. Boswell. Subjective: Pt with BM yesterday and this am- she is more concerned about her ability to void. Currently no c/o n/v or abd pain- Still has poor appetite- patient has been started on Reglan. Gastric emptying study is pending- unlikely primary cause of n/v. PHYSICAL EXAMINATION: GENERAL: Well developed, well nourished, alert & oriented x 3, in no acute distress SKIN: No lesions HEAD: Normocephalic, atraumatic, no tenderness. EARS/NOSE AND THROAT: Ears normal, nose normal NECK: Supple, no masses CHEST: Inspection within normal limits. CARDIOVASCULAR: Heart: Regular rate and rhythm RESPIRATORY: Lungs clear to auscultation GASTROINTESTINAL AND LIVER: Abdomen: Soft, non tenderness, mildly distended, no hernias, no masses, no organomegaly, no ascites, no guarding, no rebound tenderness, normoactive bowel sounds. Rectal: Deferred. EXTREMITIES: No cyanosis, clubbing or edema. Result Diagram: 08/06/1852908/06/18529 Results 24hrs Laboratory Tests Test 08/05/18 13:09 08/05/18 17:41 08/05/18 21:15 08/06/18 05:30 Bedside Glucose 194 218 167 White Blood Count 14.5 H Red Blood Count 3.21 L Hemoglobin 9.0 L Hematocrit 27.8 L Mean Corpuscular 86.6 Volume Mean Corpuscular 28.0 L Hemoglobin Mean Corpuscular 32.4 Hemoglobin Concent Red Cell Distribution 15.5 H Width Platelet Count 705 H Mean Platelet Volume 9.2 Immature Granulocytes 0.600 H % Neutrophils % 69.8 Lymphocytes % 16.9 Monocytes % 11.6 H Eosinophils % 0.8 Basophils % 0.3 Nucleated Red Blood 0.0 Cells % Immature Granulocytes 0.090 H # Neutrophils # 10.1 H Lymphocytes # 2.5 Monocytes # 1.7 H Eosinophils # 0.1 Basophils # 0.0 Nucleated Red Blood 0.0 Cells # Sodium Level 136 Potassium Level 3.2 L Chloride Level 102 Carbon Dioxide Level 24 Anion Gap 10 Blood Urea Nitrogen 42 H Creatinine 1.15 H Est Glomerular Filtrat 47 L Rate mL/min Glucose Level 160 Calcium Level 8.6 Test 08/06/18 07:58 Bedside Glucose 157 Exam/Review of Systems Exam Vitals Vital Signs Date Temp Pulse Resp B/P (MAP) Pulse Ox O2 O2 Flow FiO2 Time Delivery Rate 08/06/18 97.3 76 20 108/58 97 07:58 (75) 08/05/18 Room Air 14:00 Intake and Output 08/05/18 08/05/18 08/06/18 1515:00 23:00 07:00 IntakeIntake Total 400 ml 1000 ml BalanceBalance 400 ml 1000 ml Results Results 24hrs Laboratory Tests Test 08/05/18 13:09 08/05/18 17:41 08/05/18 21:15 08/06/18 05:30 Bedside Glucose 194 218 167 White Blood Count 14.5 H Red Blood Count 3.21 L Hemoglobin 9.0 L Hematocrit 27.8 L Mean Corpuscular 86.6 Volume Mean Corpuscular 28.0 L Hemoglobin Mean Corpuscular 32.4 Hemoglobin Concent Red Cell Distribution 15.5 H Width Platelet Count 705 H Mean Platelet Volume 9.2 Immature Granulocytes 0.600 H % Neutrophils % 69.8 Lymphocytes % 16.9 Monocytes % 11.6 H Eosinophils % 0.8 Basophils % 0.3 Nucleated Red Blood 0.0 Cells % Immature Granulocytes 0.090 H # Neutrophils # 10.1 H Lymphocytes # 2.5 Monocytes # 1.7 H Eosinophils # 0.1 Basophils # 0.0 Nucleated Red Blood 0.0 Cells # Sodium Level 136 Potassium Level 3.2 L Chloride Level 102 Carbon Dioxide Level 24 Anion Gap 10 Blood Urea Nitrogen 42 H Creatinine 1.15 H Est Glomerular Filtrat 47 L Rate mL/min Glucose Level 160 Calcium Level 8.6 Test 08/06/18 07:58 Bedside Glucose 157 Medications Medication Current Medications IV Flush (NS 3 ml) 3 ml PER PROTOCOL IV Last administered on 08/05/18 09:07; Admin Dose 3 ML; Start 07/29/18 at 06:30 Ondansetron HCl (Zofran Inj) 4 mg Q6H PRN IV NAUSEA/VOMITING Last administered on 08/02/18 19:33; Admin Dose 4 MG; Start 07/29/18 at 06:30 Acetaminophen (Tylenol Tab) 650 mg Q6H PRN PO .PAIN 1-3 OR TEMP Last administered on 08/05/18 21:17; Admin Dose 650 MG; Start 07/29/18 at 06:30 Acetaminophen/ Hydrocodone Bitart ([place] (5/325)) 1 tab Q6H PRN PO .MOD PAIN 4- 6; Start 07/29/18 at 06:30 Pantoprazole (Protonix Tab) 40 mg DAILY@06 PO Last administered on 08/06/18 05:51; Admin Dose 40 MG; Start 07/29/18 at 06:30 Enoxaparin Sodium (Lovenox) 30 mg DAILY SC Last administered on 08/06/18 09:32; Admin Dose 30 MG; Start 07/29/18 at 09:00 Diagnostic Test (Pha) (Accu-Chek) 1 ea 02 XX ; Start 07/30/18 at 02:00 Insulin Aspart (Novolog Insulin Pen) NOVOLOG *MODERATE* ALGORITHM WITH MEALS BEDTIME SC Last administered on 08/06/18 08:17; Admin Dose 2 UNIT; Start 07/29/18 at 07:55 Acetaminophen (Tylenol Tab) 650 mg Q6H PRN PO .PAIN 1-3 OR TEMP Last administered on 08/02/18 11:53; Admin Dose 650 MG; Start 07/29/18 at 07:00 Eye Lubricant (Akwa Oint) 1 applic Q1H PRN BOTH EYES DRY EYES; Start 07/29/18 at 08:00 Aspirin (Halfprin) 81 mg DAILY PO Last administered on 08/06/18 09:27; Admin Dose 81 MG; Start 07/29/18 at 09:00 Atorvastatin Calcium (Lipitor) 20 mg QHS PO Last administered on 08/05/18 21:17; Admin Dose 20 MG; Start 07/29/18 at 21:00 Clopidogrel Bisulfate (plaVIX) 75 mg DAILY PO Last administered on 08/06/18 09:29; Admin Dose 75 MG; Start 07/29/18 at 09:00 Cyanocobalamin (Vitamin B12) 50 mcg DAILY PO Last administered on 08/06/18 09:28; Admin Dose 50 MCG; Start 07/29/18 at 09:00 Levothyroxine Sodium (Synthroid) 50 mcg BEFORE BREAKFAST PO Last administered on 08/06/18 06:36; Admin Dose 50 MCG; Start 07/29/18 at 07:00 Metoprolol Succinate (Toprol Xl) 25 mg BID PO Last administered on 08/05/18 21:17; Admin Dose 25 MG; Start 07/29/18 at 09:00 Polyethyl Glycol/ Propylene Glycol (Systane 0.3-0.4% Eye Drops) 1 drop Q4H PRN BOTH EYES DRY EYES; Start 07/29/18 at 08:00 Albuterol (Ventolin Hfa) 2 puff Q4H RESP THERAPY PRN INH WHEEZING; Start 07/29/18 at 09:00 Miscellaneous Information 1 ea NOTE XX ; Start 07/29/18 at 07:00 Glucose (Glutose) 15 gm Q15M PRN PO DECREASED GLUCOSE; Start 07/29/18 at 07:00 Glucose (Glutose) 22.5 gm Q15M PRN PO DECREASED GLUCOSE; Start 07/29/18 at 07:00 Dextrose (D50w Syringe) 25 ml Q15M PRN IV DECREASED GLUCOSE; Start 07/29/18 at 07:00 Dextrose (D50w Syringe) 50 ml Q15M PRN IV DECREASED GLUCOSE; Start 07/29/18 at 07:00 Glucagon (Glucagen) 1 mg Q15M PRN IM DECREASED GLUCOSE; Start 07/29/18 at 07:00 Glucose (Glutose) 15 gm Q15M PRN BUCCAL DECREASED GLUCOSE; Start 07/29/18 at 07:00 Alprazolam (Xanax) 0.25 mg Q8H PRN PO ANXIETY Last administered on 08/04/18 20:38; Admin Dose 0.25 MG; Start 07/29/18 at 12:30 Polyethylene Glycol (Miralax) 17 gm DAILY PO Last administered on 08/05/18 08:09; Admin Dose 17 GM; Start 07/29/18 at 12:30 Docusate Sodium (Colace) 100 mg BID PO Last administered on 08/06/18 09:28; Admin Dose 100 MG; Start 07/31/18 at 21:00 Magnesium Hydroxide (Milk Of Mag) 30 ml Q12H PRN PO STOMACH UPSET/CRAMPING Last administered on 07/31/18at 21:28; Admin Dose 30 ML; Start 07/31/18 at 20:00 Al Hydrox/Mg Hydrox/Simethicone (Mag-Al Plus) 30 ml Q6H PRN PO GASTROINTESTINAL UPSET Last administered on 08/04/18 20:31; Admin Dose 30 ML; Start 08/03/18 at 17:30 MARIN CASTLE Aug 06, 2018 12:26
[2018-08-06 13:50] VITALS: BP 141/63; PULSE 60; RESP 20
--- NOTE | 2018-08-06 13:55 | PN ---
Date/Time of Note Date/Time of Note DATE: 08/06/18 TIME: 13:54 Assessment/Plan VTE Prophylaxis Risk score (from Nsg)>0 risk: 3 SCD applied (from Ns): No SCD contraindicated: other Pharmacological prophylaxis: LMWH Lines/Catheters IV C[facility] Type (from [facility]): Peripheral IV Urinary Cath still in place: No Assessment/Plan Hospital Course SUBJECTIVE: Complains of inability to empty the bladder completely. OBJECTIVE: Physical Exam General: Adequately build 68 year-old female lying in bed in no apparent distress. HEENT: Normocephalic, atraumatic. Eyes: Anicteric sclerae, conjunctivae clear. ENT: Nasal septum midline, oral mucosa moist. Neck supple, no JVD noticed. Respiratory: Bilaterally clear breath sounds. No use of accessory muscles of respiration. No adventitious breath sounds. Cardiovascular: S1, S2 heard. Regular rate and rhythm. Abdomen: Soft, nontender, and nondistended. Bowel sounds positive in all 4 quadrants. Genitourinary: Deferred. Extremities: No cyanosis, no clubbing. Bilateral lower extremity 1+ edema. Neurologic: Cranial nerves II through XII grossly intact. The patient is awake, alert, and oriented. Skin: Normal skin turgor. No skin rashes. Labs & Vitals per chart ASSESSMENT & PLAN This is a 68-year-old female with past medical history of diabetes mellitus, peripheral artery disease, stroke, dyslipidemia, and hypothyroidism. The patient presented to the emergency room with multiple complaints including bilateral lower extremity edema, unintentional weight loss, etc. The patient was admitted to inpatient setting for further treatment and evaluation. The patient underwent a CT scan of the abdomen and pelvis on 08/01/2018 that showed abnormal enlargement of the uterus with significant thickening of the endometrial stripe with pelvis MRI showing irregular 9 cm exophytic posterior uterine mass. 1. Uterine mass. Elevated CEA 125. 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 2. Bilateral lower extremity edema. Etiology could be multifactorial including underlying diastolic heart failure, and venous insufficiency. Continue diuresis while carefully monitoring renal function as clinically indicated. 3. Peripheral artery disease. Being followed by vascular surgery. Optimize medical management. Continue aspirin plus Plavix. Continue statins. 4. Diabetes mellitus. Hemoglobin A1c 6.3. Continue sliding scale insulin. 5. Elevated CA-19-9. MRI of the abdomen has been ordered. 6. Constipation. Continue bowel regimen. Being followed by gastroenterology. 7. Hypothyroidism. Continue Synthroid. 8. Acute kidney injury. Being followed by nephrology. Use nephrotoxic drugs with caution. 9. Normocytic anemia. Etiology unclear. Monitor H&H closely. 10. Fluids, electrolytes, and nutrition. Carbohydrate controlled diet. 11. DVT prophylaxis. Subcutaneous Lovenox (renally dosed). 12. Plan. Continue current management. Await MRI of the liver. The patient was seen in collaboration with Dr. Yanes. Result Diagram: 08/06/1852908/06/18529 Results 24hrs Laboratory Tests Test 08/05/18 17:41 08/05/18 21:15 08/06/18 05:30 08/06/18 07:58 Bedside Glucose 218 167 157 White Blood Count 14.5 H Red Blood Count 3.21 L Hemoglobin 9.0 L Hematocrit 27.8 L Mean Corpuscular 86.6 Volume Mean Corpuscular 28.0 L Hemoglobin Mean Corpuscular 32.4 Hemoglobin Concent Red Cell Distribution 15.5 H Width Platelet Count 705 H Mean Platelet Volume 9.2 Immature Granulocytes 0.600 H % Neutrophils % 69.8 Lymphocytes % 16.9 Monocytes % 11.6 H Eosinophils % 0.8 Basophils % 0.3 Nucleated Red Blood 0.0 Cells % Immature Granulocytes 0.090 H # Neutrophils # 10.1 H Lymphocytes # 2.5 Monocytes # 1.7 H Eosinophils # 0.1 Basophils # 0.0 Nucleated Red Blood 0.0 Cells # Sodium Level 136 Potassium Level 3.2 L Chloride Level 102 Carbon Dioxide Level 24 Anion Gap 10 Blood Urea Nitrogen 42 H Creatinine 1.15 H Est Glomerular 47 L Filtrat Rate mL/min Glucose Level 160 Calcium Level 8.6 Test 08/06/18 12:46 Bedside Glucose 167 Exam/Review of Systems Exam Vitals Vital Signs Date Temp Pulse Resp B/P (MAP) Pulse Ox O2 O2 Flow FiO2 Time Delivery Rate 08/06/18 97.3 76 20 108/58 97 07:58 (75) 08/05/18 Room Air 14:00 Intake and Output 08/05/18 08/05/18 08/06/18 1515:00 23:00 07:00 IntakeIntake Total 400 ml 1000 ml BalanceBalance 400 ml 1000 ml Results Results 24hrs Laboratory Tests Test 08/05/18 17:41 08/05/18 21:15 08/06/18 05:30 08/06/18 07:58 Bedside Glucose 218 167 157 White Blood Count 14.5 H Red Blood Count 3.21 L Hemoglobin 9.0 L Hematocrit 27.8 L Mean Corpuscular 86.6 Volume Mean Corpuscular 28.0 L Hemoglobin Mean Corpuscular 32.4 Hemoglobin Concent Red Cell Distribution 15.5 H Width Platelet Count 705 H Mean Platelet Volume 9.2 Immature Granulocytes 0.600 H % Neutrophils % 69.8 Lymphocytes % 16.9 Monocytes % 11.6 H Eosinophils % 0.8 Basophils % 0.3 Nucleated Red Blood 0.0 Cells % Immature Granulocytes 0.090 H # Neutrophils # 10.1 H Lymphocytes # 2.5 Monocytes # 1.7 H Eosinophils # 0.1 Basophils # 0.0 Nucleated Red Blood 0.0 Cells # Sodium Level 136 Potassium Level 3.2 L Chloride Level 102 Carbon Dioxide Level 24 Anion Gap 10 Blood Urea Nitrogen 42 H Creatinine 1.15 H Est Glomerular 47 L Filtrat Rate mL/min Glucose Level 160 Calcium Level 8.6 Test 08/06/18 12:46 Bedside Glucose 167 Medications Medication Current Medications IV Flush (NS 3 ml) 3 ml PER PROTOCOL IV Last administered on 08/05/18at 09:07; Admin Dose 3 ML; Start 07/29/18 at 06:30 Ondansetron HCl (Zofran Inj) 4 mg Q6H PRN IV NAUSEA/VOMITING Last administered on 08/02/18 19:33; Admin Dose 4 MG; Start 07/29/18 at 06:30 Acetaminophen (Tylenol Tab) 650 mg Q6H PRN PO .PAIN 1-3 OR TEMP Last administered on 08/05/18at 21:17; Admin Dose 650 MG; Start 07/29/18 at 06:30 Acetaminophen/ Hydrocodone Bitart ([place] (5/325)) 1 tab Q6H PRN PO .MOD PAIN 4- 6; Start 07/29/18 at 06:30 Pantoprazole (Protonix Tab) 40 mg DAILY@06 PO Last administered on 08/06/18 05:51; Admin Dose 40 MG; Start 07/29/18 at 06:30 Enoxaparin Sodium (Lovenox) 30 mg DAILY SC Last administered on 08/06/18 09:32; Admin Dose 30 MG; Start 07/29/18 at 09:00 Diagnostic Test (Pha) (Accu-Chek) 1 ea 02 XX ; Start 07/30/18 at 02:00 Insulin Aspart (Novolog Insulin Pen) NOVOLOG *MODERATE* ALGORITHM WITH MEALS BEDTIME SC Last administered on 08/06/18 13:16; Admin Dose 2 UNIT; Start 07/29/18 at 07:55 Acetaminophen (Tylenol Tab) 650 mg Q6H PRN PO .PAIN 1-3 OR TEMP Last administered on 08/02/18 11:53; Admin Dose 650 MG; Start 07/29/18 at 07:00 Eye Lubricant (Akwa Oint) 1 applic Q1H PRN BOTH EYES DRY EYES; Start 07/29/18 at 08:00 Aspirin (Halfprin) 81 mg DAILY PO Last administered on 08/06/18 09:27; Admin Dose 81 MG; Start 07/29/18 at 09:00 Atorvastatin Calcium (Lipitor) 20 mg QHS PO Last administered on 08/05/18 21:17; Admin Dose 20 MG; Start 07/29/18 at 21:00 Clopidogrel Bisulfate (plaVIX) 75 mg DAILY PO Last administered on 08/06/18 09:29; Admin Dose 75 MG; Start 07/29/18 at 09:00 Cyanocobalamin (Vitamin B12) 50 mcg DAILY PO Last administered on 08/06/18 09:28; Admin Dose 50 MCG; Start 07/29/18 at 09:00 Levothyroxine Sodium (Synthroid) 50 mcg BEFORE BREAKFAST PO Last administered on 08/06/18 06:36; Admin Dose 50 MCG; Start 07/29/18 at 07:00 Metoprolol Succinate (Toprol Xl) 25 mg BID PO Last administered on 08/05/18 21:17; Admin Dose 25 MG; Start 07/29/18 at 09:00 Polyethyl Glycol/ Propylene Glycol (Systane 0.3-0.4% Eye Drops) 1 drop Q4H PRN BOTH EYES DRY EYES; Start 07/29/18 at 08:00 Albuterol (Ventolin Hfa) 2 puff Q4H RESP THERAPY PRN INH WHEEZING; Start 07/29/18 at 09:00 Miscellaneous Information 1 ea NOTE XX ; Start 07/29/18 at 07:00 Glucose (Glutose) 15 gm Q15M PRN PO DECREASED GLUCOSE; Start 07/29/18 at 07:00 Glucose (Glutose) 22.5 gm Q15M PRN PO DECREASED GLUCOSE; Start 07/29/18 at 07:00 Dextrose (D50w Syringe) 25 ml Q15M PRN IV DECREASED GLUCOSE; Start 07/29/18 at 07:00 Dextrose (D50w Syringe) 50 ml Q15M PRN IV DECREASED GLUCOSE; Start 07/29/18 at 07:00 Glucagon (Glucagen) 1 mg Q15M PRN IM DECREASED GLUCOSE; Start 07/29/18 at 07:00 Glucose (Glutose) 15 gm Q15M PRN BUCCAL DECREASED GLUCOSE; Start 07/29/18 at 07:00 Alprazolam (Xanax) 0.25 mg Q8H PRN PO ANXIETY Last administered on 08/04/18 20:38; Admin Dose 0.25 MG; Start 07/29/18 at 12:30 Polyethylene Glycol (Miralax) 17 gm DAILY PO Last administered on 08/05/18at 08:09; Admin Dose 17 GM; Start 07/29/18 at 12:30 Docusate Sodium (Colace) 100 mg BID PO Last administered on 08/06/18 09:28; Admin Dose 100 MG; Start 07/31/18 at 21:00 Magnesium Hydroxide (Milk Of Mag) 30 ml Q12H PRN PO STOMACH UPSET/CRAMPING Last administered on 07/31/18at 21:28; Admin Dose 30 ML; Start 07/31/18 at 20:00 Al Hydrox/Mg Hydrox/Simethicone (Mag-Al Plus) 30 ml Q6H PRN PO GASTROINTESTINAL UPSET Last administered on 08/04/18 20:31; Admin Dose 30 ML; Start 08/03/18 at 17:30 SANDI MURDOCK NP Aug 06, 2018 13:55
[2018-08-06 19:55] VITALS: BP 111/57; PULSE 92; RESP 18
[2018-08-06 20:35] VITALS: BP 116/63; PULSE 85; RESP 18
[2018-08-06] MEDS: ATORVASTATIN 20 MG TAB PO SCH (20:44)
[2018-08-06] MEDS: ALPRAZOLAM 0.25 MG TAB PO PRN (20:54)
[2018-08-06] MEDS ORDERED: ZOLPIDEM 5 MG TAB PO ONE (22:41)
[2018-08-07] MEDS ORDERED: INSULIN ASPART [NOVOLOG] 3 ML PEN SC SCH ×2 (01:00→21:00)
[2018-08-07] MEDS: INSULIN ASPART [NOVOLOG] 3 ML PEN SC SCH ×5 (01:00→17:00)
[2018-08-07] MEDS ORDERED: SOD CHLORIDE 0.9% 1,000 ML IV SCH (01:00)
[2018-08-07] MEDS: ACCU-CHEK XX SCH (01:36)
[2018-08-07 02:00] VITALS: BP 118/69; PULSE 89; RESP 18
[2018-08-07] MEDS: PANTOPRAZOLE (EC) 40 MG TAB PO SCH (05:22)
[2018-08-07] MEDS: LEVOTHYROXINE 50 MCG TAB PO SCH (05:22)
--- NOTE | 2018-08-07 06:00 | PN ---
Date/Time of Note Date/Time of Note DATE: 08/07/18 TIME: 06:00 Assessment/Plan VTE Prophylaxis Risk score (from Nsg)>0 risk: 3 SCD applied (from Nsg): No SCD contraindicated: other Pharmacological prophylaxis: LMWH Lines/Catheters IV Catheter Type (from Nrs): Peripheral IV Urinary Cath still in place: No Assessment/Plan Hospital Course SUBJECTIVE: Patient more sleepy today. OBJECTIVE: Physical Exam General: Adequately build 68 year-old female lying in bed in no apparent distress. HEENT: Normocephalic, atraumatic. Eyes: Anicteric sclerae, conjunctivae clear. ENT: Nasal septum midline, oral mucosa moist. Neck supple, no JVD noticed. Respiratory: Bilaterally clear breath sounds. No use of accessory muscles of respiration. No adventitious breath sounds. Cardiovascular: S1, S2 heard. Regular rate and rhythm. Abdomen: Soft, nontender, and nondistended. Bowel sounds positive in all 4 quadrants. Genitourinary: Deferred. Extremities: No cyanosis, no clubbing. Bilateral lower extremity 1+ edema. Neurologic: The patient is somnolent. Skin: Normal skin turgor. No skin rashes. Labs & Vitals per chart ASSESSMENT & PLAN This is a 68-year-old female with past medical history of diabetes mellitus, peripheral artery disease, stroke, dyslipidemia, and hypothyroidism. The patient presented to the emergency room with multiple complaints including bilateral lower extremity edema, unintentional weight loss, etc. The patient was admitted to inpatient setting for further treatment and evaluation. The patient und erwent a CT scan of the abdomen and pelvis on 08/01/2018 that showed abnormal enlargement of the uterus with significant thickening of the endometrial stripe with pelvis MRI showing irregular 9 cm exophytic posterior uterine mass. 1. Uterine mass. Elevated CEA 125. 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 2. Bilateral lower extremity edema. Etiology could be multifactorial including underlying diastolic heart failure, and venous insufficiency. Continue diuresis while carefully monitoring renal function as clinically indicated. 3. Peripheral artery disease. Being followed by vascular surgery. Optimize medical management. Continue aspirin plus Plavix. Continue statins. 4. Diabetes mellitus. Hemoglobin A1c 6.3. Continue sliding scale insulin. 5. Elevated CA-19-9. MRI of the abdomen has been ordered. Being followed by gastroenterology. 6. Constipation. Continue bowel regimen. Being followed by gastroenterology. 7. Hypothyroidism. Continue Synthroid. 8. Acute kidney injury. Being followed by nephrology. Use nephrotoxic drugs with caution. 9. Normocytic anemia. Etiology unclear. Monitor H&H closely. 10. Fluids, electrolytes, and nutrition. Carbohydrate controlled diet. 11. DVT prophylaxis. Subcutaneous Lovenox (renally dosed). 12. Plan. Continue current management. Await MRI of the liver. The patient was seen in collaboration with Dr. Yanes. Result Diagram: 08/06/1852908/06/18529 Results 24hrs Laboratory Tests Test 08/06/18 07:58 08/06/18 12:46 08/06/18 17:30 08/06/18 18:37 Bedside Glucose 157 167 213 184 Test 08/06/18 20:45 08/07/18 00:50 08/07/18 04:03 Bedside Glucose 206 197 182 Exam/Review of Systems Exam Vitals Vital Signs Date Temp Pulse Resp B/P (MAP) Pulse Ox O2 O2 Flow FiO2 Time Delivery Rate 08/07/18 98.4 89 18 118/69 98 02:00 (85) 08/05/18 Room Air 14:00 Intake and Output 08/06/18 08/06/18 08/07/18 1515:00 23:00 07:00 IntakeIntake Total 1350 ml 360 ml 100 ml BalanceBalance 1350 ml 360 ml 100 ml Results Results 24hrs Laboratory Tests Test 08/06/18 07:58 08/06/18 12:46 08/06/18 17:30 08/06/18 18:37 Bedside Glucose 157 167 213 184 Test 08/06/18 20:45 08/07/18 00:50 08/07/18 04:03 Bedside Glucose 206 197 182 Medications Medication Current Medications IV Flush (NS 3 ml) 3 ml PER PROTOCOL IV Last administered on 08/05/18at 09:07; Admin Dose 3 ML; Start 07/29/18 at 06:30 Ondansetron HCl (Zofran Inj) 4 mg Q6H PRN IV NAUSEA/VOMITING Last administered on 08/02/18at 19:33; Admin Dose 4 MG; Start 07/29/18 at 06:30 Acetaminophen (Tylenol Tab) 650 mg Q6H PRN PO .PAIN 1-3 OR TEMP Last administered on 08/05/18 21:17; Admin Dose 650 MG; Start 07/29/18 at 06:30 Acetaminophen/ Hydrocodone Bitart ([place] (5/325)) 1 tab Q6H PRN PO .MOD PAIN 4- 6; Start 07/29/18 at 06:30 Pantoprazole (Protonix Tab) 40 mg DAILY@06 PO Last administered on 08/06/18 05:51; Admin Dose 40 MG; Start 07/29/18 at 06:30 Enoxaparin Sodium (Lovenox) 30 mg DAILY SC Last administered on 08/06/18 09:32; Admin Dose 30 MG; Start 07/29/18 at 09:00 Diagnostic Test (Pha) (Accu-Chek) 1 ea 02 XX ; Start 07/30/18 at 02:00 Acetaminophen (Tylenol Tab) 650 mg Q6H PRN PO .PAIN 1-3 OR TEMP Last administered on 08/02/18 11:53; Admin Dose 650 MG; Start 07/29/18 at 07:00 Eye Lubricant (Akwa Oint) 1 applic Q1H PRN BOTH EYES DRY EYES; Start 07/29/18 at 08:00 Aspirin (Halfprin) 81 mg DAILY PO Last administered on 08/06/18 09:27; Admin Dose 81 MG; Start 07/29/18 at 09:00 Atorvastatin Calcium (Lipitor) 20 mg QHS PO Last administered on 08/06/18 20:44; Admin Dose 20 MG; Start 07/29/18 at 21:00 Clopidogrel Bisulfate (plaVIX) 75 mg DAILY PO Last administered on 08/06/18 09:29; Admin Dose 75 MG; Start 07/29/18 at 09:00 Cyanocobalamin (Vitamin B12) 50 mcg DAILY PO Last administered on 08/06/18 09:28; Admin Dose 50 MCG; Start 07/29/18 at 09:00 Levothyroxine Sodium (Synthroid) 50 mcg BEFORE BREAKFAST PO Last administered on 08/06/18 06:36; Admin Dose 50 MCG; Start 07/29/18 at 07:00 Metoprolol Succinate (Toprol Xl) 25 mg BID PO Last administered on 08/06/18 20:44; Admin Dose 25 MG; Start 07/29/18 at 09:00 Polyethyl Glycol/ Propylene Glycol (Systane 0.3-0.4% Eye Drops) 1 drop Q4H PRN BOTH EYES DRY EYES; Start 07/29/18 at 08:00 Albuterol (Ventolin Hfa) 2 puff Q4H RESP THERAPY PRN INH WHEEZING; Start 07/29/18 at 09:00 Miscellaneous Information 1 ea NOTE XX ; Start 07/29/18 at 07:00 Glucose (Glutose) 15 gm Q15M PRN PO DECREASED GLUCOSE; Start 07/29/18 at 07:00 Glucose (Glutose) 22.5 gm Q15M PRN PO DECREASED GLUCOSE; Start 07/29/18 at 07:00 Dextrose (D50w Syringe) 25 ml Q15M PRN IV DECREASED GLUCOSE; Start 07/29/18 at 07:00 Dextrose (D50w Syringe) 50 ml Q15M PRN IV DECREASED GLUCOSE; Start 07/29/18 at 07:00 Glucagon (Glucagen) 1 mg Q15M PRN IM DECREASED GLUCOSE; Start 07/29/18 at 07:00 Glucose (Glutose) 15 gm Q15M PRN BUCCAL DECREASED GLUCOSE; Start 07/29/18 at 07:00 Alprazolam (Xanax) 0.25 mg Q8H PRN PO ANXIETY Last administered on 08/06/18at 20:54; Admin Dose 0.25 MG; Start 07/29/18 at 12:30 Polyethylene Glycol (Miralax) 17 gm DAILY PO Last administered on 08/05/18at 08:09; Admin Dose 17 GM; Start 07/29/18 at 12:30 Docusate Sodium (Colace) 100 mg BID PO Last administered on 08/06/18at 20:44; Admin Dose 100 MG; Start 07/31/18 at 21:00 Magnesium Hydroxide (Milk Of Mag) 30 ml Q12H PRN PO STOMACH UPSET/CRAMPING Last administered on 07/31/18at 21:28; Admin Dose 30 ML; Start 07/31/18 at 20:00 Al Hydrox/Mg Hydrox/Simethicone (Mag-Al Plus) 30 ml Q6H PRN PO GASTROINTESTINAL UPSET Last administered on 08/04/18at 20:31; Admin Dose 30 ML; Start 08/03/18 at 17:30 Insulin Aspart (Novolog Insulin Pen) NOVOLOG *MODERATE* ALGORI... Q4 SC ; Start 08/07/18 at 01:00 Sodium Chloride 1,000 ml @ 75 mls/hr [id number] IV Last administered on 08/07/18at 01:13; Admin Dose 75 MLS/HR; Start 08/07/18 at 01:00 SANDI MURDOCK NP Aug 07, 2018 06:00
[2018-08-07 07:22] VITALS: BP 106/55; PULSE 68; RESP 16
[2018-08-07] MEDS: CLOPIDOGREL 75 MG TAB PO SCH (08:38)
[2018-08-07] MEDS: DOCUSATE SODIUM 100 MG CAP PO SCH ×2 (08:38→20:42)
[2018-08-07] MEDS: METOPROLOL (XL) 25 MG TAB PO SCH ×2 (08:38→20:43)
[2018-08-07] MEDS: ASPIRIN (EC) 81 MG TAB PO SCH (08:38)
[2018-08-07] MEDS: POLYETHYLENE GLYCOL 17 GM PACKET PO SCH (08:39)
[2018-08-07] MEDS: ENOXAPARIN 30 MG/0.3 ML SYG SC SCH (08:40)
--- NOTE | 2018-08-07 08:55 | PN ---
DATE: 08/07/2018 SUBJECTIVE: The patient is stable, no events overnight. OBJECTIVE: VITAL SIGNS: Blood pressure is 106/55, pulse 68, respirations 16, temperature 98.0. HEENT: Head is normocephalic. NECK: Supple. HEART: Regular rate. LUNGS: Show diminished breath sounds at the base. ABDOMEN: Soft, nontender to palpation without rebound or guarding. EXTREMITIES: Negative for clubbing, cyanosis, no edema. DERMATOLOGIC: No rashes. MUSCULOSKELETAL: No joint effusion. NEUROLOGIC: No change in exam. MEDICATIONS: The patient's medications have been reviewed. LABORATORY DATA: Has been reviewed. ASSESSMENT AND PLAN: 1. Nonoliguric acute kidney injury with previous baseline creatinine of 0.9 mg/dL. Etiology of EDILMA is secondary to hemodynamics. Renal function is improved with IV fluids. Continue current treatment plans, supportive care, renally dose all meds. 2. Anemia. Monitor hemoglobin and hematocrit levels. 3. Hypokalemia. Continue to monitor and replete as needed. 4. Mineral bone disorder, monitor calcium and phosphorus levels. 5. Peripheral vascular disease. Continue to monitor. 6. Lower extremity edema due to venous insufficiency. Continue to monitor. 7. Abdominal mass. The patient is status post MRI. Continue to monitor. Follow up with ASSET MANAGEMENT COORDINATOR. 8. Diabetes. Continue current insulin regimen. 9. Hypothyroidism. Continue Synthroid. Dictated By: JACOB BROCK DO NR/NTS Conf#: [id number] DID#: [id number] CC: TAN MAIER MD; SANDRA AGUILERA MD;*End*
[2018-08-07] MEDS: CYANOCOBALAMIN 100 MCG TAB PO SCH (09:00)
--- NOTE | 2018-08-07 10:07 | CONS ---
DATE OF ADMISSION: 07/29/2018 DATE OF CONSULTATION: 08/04/2018 HISTORY OF PRESENT ILLNESS: This is a 68-year-old female, para 2, who was admitted 07/29/2018 for ne w onset of congestive heart failure. The patient had history of stroke and significant peripheral va scular disease. The patient has been seen by GI, vascular surgery, and also gynecology. During work up, she was found to have a pelvic mass and liver lesion. The CT scan was without contrast. Liver lesion shows a 4.3 x 3.1 cm hypodense mass, indeterminate. The pelvic mass was further clarified with MRI of the pelvis with contrast, which showed a lobular ex ophytic mass in the cul-de-sac measuring 9 x 9 x 6 cm, appeared to be attached to the posterior uteri ne body. Her endometrial lining is normal at 2 mm. There was bilateral hydrosalpinx. There is a pr ominent left external iliac lymph node 1 cm. Tumor markers were also drawn. CA-125 was elevated at 114. CA 19-9 is at 334. CEA was not ordered. The patient denied any vaginal bleeding. Due to the pelvic mass and possible liver lesion, IGNITION MECHANIC oncology consultation was obtained. The patient also had lower extremity Doppler that did not show any active DVT. INTENSIVE MEDICAL HISTORY: The patient has a history of peripheral vascular disease. She also had a history of stroke in 2006. She has a baseline dementia and also diabetes, dyslipidemia, and hypothy roidism. ALLERGIES: LEVAQUIN. PAST SURGICAL HISTORY: Significant for bilateral carotid endarterectomy and she also had bilateral c ataract surgeries. SOCIAL HISTORY: Noncontributory. REVIEW OF SYSTEMS: Denies any vaginal bleeding. Does have some shortness of breath and lower extrem ity edema. PHYSICAL EXAMINATION: VITAL SIGNS: The patient is afebrile, pulse in the 90s, blood pressure within normal limits, and oxy gen saturation 100% on room air. GENERAL: The patient has been thin, not quite cachectic. HEENT: Within normal limits. LUNGS: Clear. ABDOMEN: Soft. EXTREMITIES: Some pitting edema. SKIN: There is some erythema at the level of the knee. PELVIC: Deferred for now. IMPRESSION: 1. Multiple medical comorbidities. 2. Pedunculated uterine mass. 3. Elevated CA-125 and elevated CA 19-9. RECOMMENDATIONS: 1. I do recommend MRI of the liver with contrast to better delineate the liver lesion. If the lesio n is suspicious, I recommend percutaneous biopsy to document metastases. 2. The patient is at high surgical risk due to medical comorbidities. It seems that patient may req uire exploratory laparotomy and removal of the pelvic mass. 3. The patient needs to be optimized and medically clear for potential surgery. 4. If workup is all complete, the patient can be discharged and bring back for elective operation. 5. I will discuss further with the patient's son regarding the overall plan. Dictated By: GIACOMO CANO MD [facility]/NTS Conf#: [id number] DID#: [id number] CC: SANDRA AGUILERA MD; ATN MAIER MD;*EndCC*
[2018-08-07 14:04] VITALS: BP 115/54; PULSE 76; RESP 15
--- NOTE | 2018-08-07 15:14 | PN ---
Date/Time of Note Date/Time of Note DATE: 08/07/18 TIME: 15:13 Assessment/Plan VTE Prophylaxis Risk score (from Ns)>0 risk: 2 SCD applied (from Ns): No SCD contraindicated: other (scds) Pharmacological prophylaxis: other (scds) Lines/Catheters IV [facility]ter [facility] (from [facility]): Peripheral IV Urinary Cath still in place: No Assessment/Plan Hospital Course Assessment/Plan Assessment: Constipation - large amounts of retained stool on imaging - possible compression of rectum by the uterine mass Anorexia with decreased oral intake Abdominal pain Weight loss of 20 lbs - likely related to malignancy vs gastroparesis- less likely Uterine mass - possible malignancy on MRI Elevated CA 19-9 and CA 125 EDILMA Diabetes Hypothyroidism Hx of peripheral artery disease Plan: Gastric emptying study- normal Continue bowel regimen f/u onc recommendations Patient seen in collaboration with Dr. Boswell. Subjective: Currently resting, in no apparent distress. Pt had BM yesterday. NM gastric emptying study reviewed- Plan for MRI of abdomen today- currently pending BM noted yesterday. PHYSICAL EXAMINATION: GENERAL: Well developed, well nourished, alert & oriented x 3, in no acute distress SKIN: No lesions HEAD: Normocephalic, atraumatic, no tenderness. EARS/NOSE AND THROAT: Ears normal, nose normal NECK: Supple, no masses CHEST: Inspection within normal limits. CARDIOVASCULAR: Heart: Regular rate and rhythm RESPIRATORY: Lungs clear to auscultation GASTROINTESTINAL AND LIVER: Abdomen: Soft, non tenderness, mildly distended, no hernias, no masses, no organomegaly, no ascites, no guarding, no rebound tenderness, normoactive bowel sounds. Rectal: Deferred. EXTREMITIES: No cyanosis, clubbing or edema. Result Diagram: 08/07/18 0721 08/07/18 0721 Results 24hrs Laboratory Tests Test 08/06/18 17:30 08/06/18 18:37 08/06/18 20:45 08/07/18 00:50 Bedside Glucose 213 184 206 197 Test 08/07/18 04:03 08/07/18 07:21 08/07/18 08:43 08/07/18 12:41 Bedside Glucose 182 191 222 H White Blood Count 11.0 #H Red Blood Count 2.76 L Hemoglobin 8.0 L Hematocrit 24.5 L Mean Corpuscular 88.8 Volume Mean Corpuscular 29.0 Hemoglobin Mean Corpuscular 32.7 Hemoglobin Concent Red Cell 15.5 H Distribution Width Platelet Count 658 H Mean Platelet Volume 9.1 Immature 0.600 H Granulocytes % Neutrophils % 67.5 Lymphocytes % 18.5 Monocytes % 11.7 H Eosinophils % 1.3 Basophils % 0.4 Nucleated Red Blood 0.0 Cells % Immature 0.070 H Granulocytes # Neutrophils # 7.4 Lymphocytes # 2.0 Monocytes # 1.3 H Eosinophils # 0.1 Basophils # 0.0 Nucleated Red Blood 0.0 Cells # Sodium Level 135 Potassium Level 3.6 Chloride Level 106 Carbon Dioxide Level 21 Anion Gap 8 Blood Urea Nitrogen 42 H Creatinine 1.01 H Est Glomerular 54 L Filtrat Rate mL/min Glucose Level 171 Calcium Level 8.5 Exam/Review of Systems Exam Vitals Vital Signs Date Temp Pulse Resp B/P (MAP) Pulse Ox O2 O2 Flow FiO2 Time Delivery Rate 08/07/18 97.7 76 15 115/54 100 Room Air 14:04 (74) Intake and Output 08/06/18 08/06/18 08/07/18 1515:00 23:00 07:00 IntakeIntake Total 1350 ml 360 ml 100 ml BalanceBalance 1350 ml 360 ml 100 ml Results Results 24hrs Laboratory Tests Test 08/06/18 17:30 08/06/18 18:37 08/06/18 20:45 08/07/18 00:50 Bedside Glucose 213 184 206 197 Test 08/07/18 04:03 08/07/18 07:21 08/07/18 08:43 08/07/18 12:41 Bedside Glucose 182 191 222 H White Blood Count 11.0 #H Red Blood Count 2.76 L Hemoglobin 8.0 L Hematocrit 24.5 L Mean Corpuscular 88.8 Volume Mean Corpuscular 29.0 Hemoglobin Mean Corpuscular 32.7 Hemoglobin Concent Red Cell 15.5 H Distribution Width Platelet Count 658 H Mean Platelet Volume 9.1 Immature 0.600 H Granulocytes % Neutrophils % 67.5 Lymphocytes % 18.5 Monocytes % 11.7 H Eosinophils % 1.3 Basophils % 0.4 Nucleated Red Blood 0.0 Cells % Immature 0.070 H Granulocytes # Neutrophils # 7.4 Lymphocytes # 2.0 Monocytes # 1.3 H Eosinophils # 0.1 Basophils # 0.0 Nucleated Red Blood 0.0 Cells # Sodium Level 135 Potassium Level 3.6 Chloride Level 106 Carbon Dioxide Level 21 Anion Gap 8 Blood Urea Nitrogen 42 H Creatinine 1.01 H Est Glomerular 54 L Filtrat Rate mL/min Glucose Level 171 Calcium Level 8.5 Medications Medication Current Medications IV Flush (NS 3 ml) 3 ml PER PROTOCOL IV Last administered on 08/05/18 09:07; Admin Dose 3 ML; Start 07/29/18 at 06:30 Ondansetron HCl (Zofran Inj) 4 mg Q6H PRN IV NAUSEA/VOMITING Last administered on 08/02/18 19:33; Admin Dose 4 MG; Start 07/29/18 at 06:30 Acetaminophen (Tylenol Tab) 650 mg Q6H PRN PO .PAIN 1-3 OR TEMP Last administered on 08/05/18 21:17; Admin Dose 650 MG; Start 07/29/18 at 06:30 Acetaminophen/ Hydrocodone Bitart ([place] (5/325)) 1 tab Q6H PRN PO .MOD PAIN 4- 6; Start 07/29/18 at 06:30 Pantoprazole (Protonix Tab) 40 mg DAILY@06 PO Last administered on 08/06/18 05:51; Admin Dose 40 MG; Start 07/29/18 at 06:30 Enoxaparin Sodium (Lovenox) 30 mg DAILY SC Last administered on 08/07/18 08:40; Admin Dose 30 MG; Start 07/29/18 at 09:00 Diagnostic Test (Pha) (Accu-Chek) 1 ea 02 XX ; Start 07/30/18 at 02:00 Acetaminophen (Tylenol Tab) 650 mg Q6H PRN PO .PAIN 1-3 OR TEMP Last administered on 08/02/18 11:53; Admin Dose 650 MG; Start 07/29/18 at 07:00 Eye Lubricant ([place] Oint) 1 applic Q1H PRN BOTH EYES DRY EYES; Start 07/29/18 at 08:00 Aspirin (Halfprin) 81 mg DAILY PO Last administered on 08/07/18 08:38; Admin Dose 81 MG; Start 07/29/18 at 09:00 Atorvastatin Calcium (Lipitor) 20 mg QHS PO Last administered on 08/06/18 20:44; Admin Dose 20 MG; Start 07/29/18 at 21:00 Clopidogrel Bisulfate (plaVIX) 75 mg DAILY PO Last administered on 08/07/18 08:38; Admin Dose 75 MG; Start 07/29/18 at 09:00 Cyanocobalamin (Vitamin B12) 50 mcg DAILY PO Last administered on 08/06/18at 09:28; Admin Dose 50 MCG; Start 07/29/18 at 09:00 Levothyroxine Sodium (Synthroid) 50 mcg BEFORE BREAKFAST PO Last administered on 08/06/18at 06:36; Admin Dose 50 MCG; Start 07/29/18 at 07:00 Metoprolol Succinate (Toprol Xl) 25 mg BID PO Last administered on 08/07/18 08:38; Admin Dose 25 MG; Start 07/29/18 at 09:00 Polyethyl Glycol/ Propylene Glycol (Systane 0.3-0.4% Eye Drops) 1 drop Q4H PRN BOTH EYES DRY EYES; Start 07/29/18 at 08:00 Albuterol (Ventolin Hfa) 2 puff Q4H RESP THERAPY PRN INH WHEEZING; Start 07/29/18 at 09:00 Miscellaneous Information 1 ea NOTE XX ; Start 07/29/18 at 07:00 Glucose (Glutose) 15 gm Q15M PRN PO DECREASED GLUCOSE; Start 07/29/18 at 07:00 Glucose (Glutose) 22.5 gm Q15M PRN PO DECREASED GLUCOSE; Start 07/29/18 at 07:00 Dextrose (D50w Syringe) 25 ml Q15M PRN IV DECREASED GLUCOSE; Start 07/29/18 at 07:00 Dextrose (D50w Syringe) 50 ml Q15M PRN IV DECREASED GLUCOSE; Start 07/29/18 at 07:00 Glucagon (Glucagen) 1 mg Q15M PRN IM DECREASED GLUCOSE; Start 07/29/18 at 07:00 Glucose (Glutose) 15 gm Q15M PRN BUCCAL DECREASED GLUCOSE; Start 07/29/18 at 07:00 Alprazolam (Xanax) 0.25 mg Q8H PRN PO ANXIETY Last administered on 08/06/18at 20:54; Admin Dose 0.25 MG; Start 07/29/18 at 12:30 Polyethylene Glycol (Miralax) 17 gm DAILY PO Last administered on 08/05/18 08:09; Admin Dose 17 GM; Start 07/29/18 at 12:30 Docusate Sodium (Colace) 100 mg BID PO Last administered on 08/07/18at 08:38; Admin Dose 100 MG; Start 07/31/18 at 21:00 Magnesium Hydroxide (Milk Of Mag) 30 ml Q12H PRN PO STOMACH UPSET/CRAMPING Last administered on 07/31/18at 21:28; Admin Dose 30 ML; Start 07/31/18 at 20:00 Al Hydrox/Mg Hydrox/Simethicone (Mag-Al Plus) 30 ml Q6H PRN PO GASTROINTESTINAL UPSET Last administered on 08/04/18at 20:31; Admin Dose 30 ML; Start 08/03/18 at 17 :30 Insulin Aspart (Novolog Insulin Pen) NOVOLOG *MODERATE* ALGORI... Q4 SC Last administered on 08/07/18at 12:47; Admin Dose 6 UNIT; Start 08/07/18 at 01:00 MARIN CASTLE Aug 07, 2018 15:14
--- NOTE | 2018-08-07 18:42 | PSY ---
Date/Time of Note Date/Time of Note DATE: 08/07/18 TIME: 18:38 Psychiatric Subjective Eval Consent Pt consented to telemedicine: No Subjective Evaluation Patient location: inpatient Chief Complaint: swelling both legs x4 weeks History of present illness Patient is a 67 yo woman with history of stroke, peripheral vascular disease, and admitted for CHF. On a [id number] evaluation, patient states she has difficulty sleeping, states she is anxious because of the yelling on the unit and had difficulty sleeping she reports feeling hopeless thinking of all the medical issues she has been denies suicidal ideation and contracted for safety Past psychiatric history Denies Hospitalization: other Medical history Problems Medical Problems: (1) Swelling of both lower extremities Status: Acute Allergies: Coded Allergies: levofloxacin (Verified Allergy, Unknown, 07/05/18) Substance Abuse Substance abuse history: No Prior substance abuse treatmen: No Social History Marital status: other DPA/Conservatorship: No Psychiatric Objective Eval Review of Systems: Review of Systems: Not Applicable Physical Examination: Sleep: Insomnia Appetite: Adequate Energy: Adequate Interest: Adequate Mental Status Examination: Appearance: Groomed Eye Contact: Fair Psychomotor Activity: Slow Behavior: Cooperative Speech: Soft Mood: Anxious Though Process: Linear Laboratory Results Laboratory Tests Test 08/05/18 21:15 08/06/18 05:30 08/06/18 07:58 08/06/18 12:46 Bedside Glucose 167 mg/dL 157 mg/dL 167 mg/dL White Blood Count 14.5 10^3/ul Red Blood Count 3.21 10^6/ul Hemoglobin 9.0 g/dl Hematocrit 27.8 % Mean Corpuscular 86.6 fl Volume Mean Corpuscular 28.0 pg Hemoglobin Mean Corpuscular 32.4 g/dl Hemoglobin Concent Red Cell 15.5 % Distribution Width Platelet Count 705 10^3/UL Mean Platelet 9.2 fl Volume Immature 0.600 % Granulocytes % Neutrophils % 69.8 % Lymphocytes % 16.9 % Monocytes % 11.6 % Eosinophils % 0.8 % Basophils % 0.3 % Nucleated Red Blood 0.0 /100WBC Cells % Immature 0.090 10^3/ul Granulocytes # Neutrophils # 10.1 10^3/ul Lymphocytes # 2.5 10^3/ul Monocytes # 1.7 10^3/ul Eosinophils # 0.1 10^3/ul Basophils # 0.0 10^3/ul Nucleated Red Blood 0.0 10^3/ul Cells # Sodium Level 136 mmol/L Potassium Level 3.2 mmol/L Chloride Level 102 mmol/L Carbon Dioxide 24 mmol/L Level Anion Gap 10 Blood Urea Nitrogen 42 mg/dl Creatinine 1.15 mg/dl Est Glomerular 47 mL/min Filtrat Rate mL/min Glucose Level 160 mg/dl Calcium Level 8.6 mg/dl Test 08/06/18 17:30 08/06/18 18:37 08/06/18 20:45 08/07/18 00:50 Bedside Glucose 213 mg/dL 184 mg/dL 206 mg/dL 197 mg/dL Test 08/07/18 04:03 08/07/18 07:21 08/07/18 08:43 08/07/18 12:41 Bedside Glucose 182 mg/dL 191 mg/dL 222 mg/dL White Blood Count 11.0 10^3/ul Red Blood Count 2.76 10^6/ul Hemoglobin 8.0 g/dl Hematocrit 24.5 % Mean Corpuscular 88.8 fl Volume Mean Corpuscular 29.0 pg Hemoglobin Mean Corpuscular 32.7 g/dl Hemoglobin Concent Red Cell 15.5 % Distribution Width Platelet Count 658 10^3/UL Mean Platelet 9.1 fl Volume Immature 0.600 % Granulocytes % Neutrophils % 67.5 % Lymphocytes % 18.5 % Monocytes % 11.7 % Eosinophils % 1.3 % Basophils % 0.4 % Nucleated Red Blood 0.0 /100WBC Cells % Immature 0.070 10^3/ul Granulocytes # Neutrophils # 7.4 10^3/ul Lymphocytes # 2.0 10^3/ul Monocytes # 1.3 10^3/ul Eosinophils # 0.1 10^3/ul Basophils # 0.0 10^3/ul Nucleated Red Blood 0.0 10^3/ul Cells # Sodium Level 135 mmol/L Potassium Level 3.6 mmol/L Chloride Level 106 mmol/L Carbon Dioxide 21 mmol/L Level Anion Gap 8 Blood Urea Nitrogen 42 mg/dl Creatinine 1.01 mg/dl Est Glomerular 54 mL/min Filtrat Rate mL/min Glucose Level 171 mg/dl Calcium Level 8.5 mg/dl Test 08/07/18 17:21 Bedside Glucose 94 mg/dL Assessment and Plan Assessment/Diagnosis Diagnosis Insomnia NOS Recommendation/Plan Medication Management Trazodone 25 mg nightly as needed Multiple antipsychotics: No Psychotherapy Provide supportive therapy Discharge Disposition: Other Legal Status: Voluntary (And does not meet criteria for 5150 hold) LATANYA AVILA NP Aug 07, 2018 18:42
[2018-08-07 20:00] VITALS: BP 112/48; PULSE 88; RESP 19
[2018-08-07] MEDS: ATORVASTATIN 20 MG TAB PO SCH (20:42)
[2018-08-07] MEDS: traZODone 50 MG TAB PO PRN (20:42)
[2018-08-07] MEDS: Insulin NOVOLOG SS MODERATE Algorithm (SS with meals and bedtime) SC SCH (20:45)
[2018-08-07] MEDS: ACETAMINOPHEN 325 MG TAB PO PRN (21:26)
[2018-08-07] MEDS: ALPRAZOLAM 0.25 MG TAB PO PRN (22:23)
[2018-08-08] MEDS: ACCU-CHEK XX SCH (01:59)
[2018-08-08 02:51] VITALS: BP 106/45; PULSE 86; RESP 19
[2018-08-08] MEDS: LEVOTHYROXINE 50 MCG TAB PO SCH (06:14)
[2018-08-08] MEDS: PANTOPRAZOLE (EC) 40 MG TAB PO SCH (06:14)
[2018-08-08 08:00] VITALS: BP 133/58; PULSE 65; RESP 18
[2018-08-08] MEDS: ASPIRIN (EC) 81 MG TAB PO SCH (08:25)
[2018-08-08] MEDS: CLOPIDOGREL 75 MG TAB PO SCH (08:25)
[2018-08-08] MEDS: DOCUSATE SODIUM 100 MG CAP PO SCH ×2 (08:25→20:48)
[2018-08-08] MEDS: METOPROLOL (XL) 25 MG TAB PO SCH ×2 (08:26→20:48)
[2018-08-08] MEDS: CYANOCOBALAMIN 100 MCG TAB PO SCH (08:26)
[2018-08-08] MEDS: ENOXAPARIN 30 MG/0.3 ML SYG SC SCH (08:28)
[2018-08-08] MEDS: Insulin NOVOLOG SS MODERATE Algorithm (SS with meals and bedtime) SC SCH (08:30)
[2018-08-08] MEDS: POLYETHYLENE GLYCOL 17 GM PACKET PO SCH (08:36)
--- NOTE | 2018-08-08 09:10 | PN ---
DATE: 08/08/2018 SUBJECTIVE: The patient is stable. No events overnight. OBJECTIVE: VITAL SIGNS: Blood pressure is 133/58, pulse is 65, respirations 18, temperature 98.0. HEENT: Head is normocephalic. NECK: Supple. HEART: Regular rate. LUNGS: Show diminished breath sounds at the base. ABDOMEN: Soft, nontender to palpation without rebound or guarding. EXTREMITIES: Negative for clubbing, cyanosis, no edema. DERMATOLOGIC: No rashes. MUSCULOSKELETAL: No joint effusion. NEUROLOGIC: No change in exam. MEDICATIONS: Reviewed. LABORATORY DATA: Reviewed. ASSESSMENT AND PLAN: 1. Nonoliguric acute kidney injury with previous baseline creatinine of 0.9 mg/dL. Etiology of acut e kidney injury is secondary to hemodynamics and volume depletion. Renal function is improved with I V fluids. 2. Anemia. Monitor hemoglobin and hematocrit levels. 3. Hypokalemia. Continue to monitor and replete as needed. 4. Mineral bone disorder. Monitor calcium and phosphorus levels. 5. Peripheral vascular disease. Continue to monitor. 6. Lower extremity edema secondary to venous insufficiency. Continue to monitor. 7. Abdominal mass. The patient is status post MRI. Continue to monitor. Follow up with SLATE HANDLER. 8. Anxiety disorder. Follow up with psychiatry. 9. Elevated CEA, continue to monitor. Workup is ongoing. 10. Diabetes. Continue current insulin regimen. 11. Hypothyroidism. Dictated By: JACOB BROCK DO NR/NTS Conf#: [id number] DID#: [id number] CC: SANDRA AGUILERA MD; TAN MAIER MD;*[facility]*
[2018-08-08] MEDS ORDERED: MAGNESIUM CITRATE 300 ML BTL PO ONE (10:00)
--- NOTE | 2018-08-08 10:28 | PN ---
Date/Time of Note Date/Time of Note DATE: 08/08/18 TIME: 10:25 Assessment/Plan VTE Prophylaxis Risk score (from Nsg)>0 risk: 3 SCD applied (from Ns): No SCD contraindicated: other Pharmacological prophylaxis: LMWH Lines/Catheters [facility]from [facility] Saline Lock Urinary Cath still in place: No Assessment/Plan Hospital Course SUBJECTIVE: Complains of constipation. OBJECTIVE: Physical Exam General: Adequately build 68 year-old female lying in bed in no apparent distress. HEENT: Normocephalic, atraumatic. Eyes: Anicteric sclerae, conjunctivae clear. ENT: Nasal septum midline, oral mucosa moist. Neck supple, no JVD noticed. Respiratory: Bilaterally clear breath sounds. No use of accessory muscles of respiration. No adventitious breath sounds. Cardiovascular: S1, S2 heard. Regular rate and rhythm. Abdomen: Soft, nontender, and nondistended. Bowel sounds positive in all 4 quadrants. Genitourinary: Deferred. Extremities: No cyanosis, no clubbing. Bilateral lower extremity 1+ edema. Neurologic: Cranial nerves II through XII grossly intact. The patient is awake, alert, and oriented. Skin: Normal skin turgor. No skin rashes. Labs & Vitals per chart ASSESSMENT & PLAN This is a 68-year-old female with past medical history of diabetes mellitus, peripheral artery disease, stroke, dyslipidemia, and hypothyroidism. The patient presented to the emergency room with multiple complaints including bilateral lower extremity edema, unintentional weight loss, etc. The patient was admitted to inpatient setting for further treatment and evaluation. The patient underwent a CT scan of the abdomen and pelvis on 08/01/2018 that showed abnormal enlargement of the uterus with significant thickening of the endometrial stripe with pelvis MRI showing irregular 9 cm exophytic posterior uterine mass. 1. Uterine mass. Elevated CEA 125. S/P [facility] Straightener Stamper/ONC evaluation, who recommended MRI of the liver. 2. Bilateral lower extremity edema. Etiology could be multifactorial including underlying diastolic heart failure, and venous insufficiency. Continue diuresis while carefully monitoring renal function as clinically indicated. 3. Peripheral artery disease. Being followed by vascular surgery. Optimize medical management. Continue aspirin plus Plavix. Continue statins. 4. Diabetes mellitus. Hemoglobin A1c 6.3. Continue sliding scale insulin. 5. Elevated CA-19-9. MRI of the abdomen showing multiple parenchymal and capsular liver lesions. Etiology unclear. Differential considerations include necrotic/cystic tumor versus abscess. Obtain tissue sampling, if the family agrees. 6. Constipation. Continue bowel regimen. Being followed by gastroenterology. 7. Hypothyroidism. Continue Synthroid. 8. Acute kidney injury. Being followed by nephrology. Use nephrotoxic drugs with caution. 9. Normocytic anemia. Etiology unclear. Monitor H&H closely. 10. Fluids, electrolytes, and nutrition. Carbohydrate controlled diet. 11. DVT prophylaxis. Subcutaneous Lovenox (renally dosed). 12. Plan. Continue current management. Await family's decision before proceeding with tissue sampling. Called the patient's son Rk Rausch @ [phone]. Informed him about the MRI findings and the necessity for needle biopsy for further evaluation of this. The son agreed on getting biopsy of the liver lesions. This was ordered. The patient was seen in collaboration with Dr. Yanes. Result Diagram: 08/07/18 0721 08/08/18 0909 Results 24hrs Laboratory Tests Test 08/07/18 12:41 08/07/18 17:21 08/07/18 20:41 08/08/18 01:21 Bedside Glucose 222 H 94 251 H 230 H Test 08/08/18 08:24 08/08/18 09:09 Bedside Glucose 147 White Blood Count Pending Red Blood Count Pending Hemoglobin Pending Hematocrit Pending Mean Corpuscular Pending Volume Mean Corpuscular Pending Hemoglobin Mean Corpuscular Pending Hemoglobin Concent Red Cell Pending Distribution Width Platelet Count Pending Mean Platelet Volume Pending Sodium Level 139 Potassium Level 3.7 Chloride Level 106 Carbon Dioxide Level 21 Anion Gap 12 Blood Urea Nitrogen 41 H Creatinine 0.98 Est Glomerular 56 L Filtrat Rate mL/min Glucose Level 155 Calcium Level 9.1 Phosphorus Level 3.4 Magnesium Level 2.5 Exam/Review of Systems Exam Vitals Vital Signs Date Temp Pulse Resp B/P (MAP) Pulse Ox O2 O2 Flow FiO2 Time Delivery Rate 08/08/18 98.0 65 18 133/58 97 08:00 (83) 08/07/18 Room Air 14:04 Results Results 24hrs Laboratory Tests Test 08/07/18 12:41 08/07/18 17:21 08/07/18 20:41 08/08/18 01:21 Bedside Glucose 222 H 94 251 H 230 H Test 08/08/18 08:24 08/08/18 09:09 Bedside Glucose 147 White Blood Count Pending Red Blood Count Pending Hemoglobin Pending Hematocrit Pending Mean Corpuscular Pending Volume Mean Corpuscular Pending Hemoglobin Mean Corpuscular Pending Hemoglobin Concent Red Cell Pending Distribution Width Platelet Count Pending Mean Platelet Volume Pending Sodium Level 139 Potassium Level 3.7 Chloride Level 106 Carbon Dioxide Level 21 Anion Gap 12 Blood Urea Nitrogen 41 H Creatinine 0.98 Est Glomerular 56 L Filtrat Rate mL/min Glucose Level 155 Calcium Level 9.1 Phosphorus Level 3.4 Magnesium Level 2.5 Medications Medication Current Medications IV Flush (NS 3 ml) 3 ml PER PROTOCOL IV Last administered on 08/05/18 09:07; Admin Dose 3 ML; Start 07/29/18 at 06:30 Ondansetron HCl (Zofran Inj) 4 mg Q6H PRN IV NAUSEA/VOMITING Last administered on 08/02/18at 19:33; Admin Dose 4 MG; Start 07/29/18 at 06:30 Acetaminophen (Tylenol Tab) 650 mg Q6H PRN PO .PAIN 1-3 OR TEMP Last administered on 08/07/18at 21:26; Admin Dose 650 MG; Start 07/29/18 at 06:30 Acetaminophen/ Hydrocodone Bitart ([place] (5/325)) 1 tab Q6H PRN PO .MOD PAIN 4- 6; Start 07/29/18 at 06:30 Pantoprazole (Protonix Tab) 40 mg DAILY@06 PO Last administered on 08/08/18at 0 6:14; Admin Dose 40 MG; Start 07/29/18 at 06:30 Enoxaparin Sodium (Lovenox) 30 mg DAILY SC Last administered on 08/08/18at 08:28; Admin Dose 30 MG; Start 07/29/18 at 09:00 Diagnostic Test (Pha) (Accu-Chek) 1 ea 02 XX ; Start 07/30/18 at 02:00 Acetaminophen (Tylenol Tab) 650 mg Q6H PRN PO .PAIN 1-3 OR TEMP Last administered on 08/02/18 11:53; Admin Dose 650 MG; Start 07/29/18 at 07:00 Eye Lubricant (Akwa Oint) 1 applic Q1H PRN BOTH EYES DRY EYES; Start 07/29/18 at 08:00 Aspirin (Halfprin) 81 mg DAILY PO Last administered on 08/08/18 08:25; Admin Dose 81 MG; Start 07/29/18 at 09:00 Atorvastatin Calcium (Lipitor) 20 mg QHS PO Last administered on 08/07/18at 20:42; Admin Dose 20 MG; Start 07/29/18 at 21:00 Clopidogrel Bisulfate (plaVIX) 75 mg DAILY PO Last administered on 08/08/18 08:25; Admin Dose 75 MG; Start 07/29/18 at 09:00 Cyanocobalamin (Vitamin B12) 50 mcg DAILY PO Last administered on 08/08/18 08:26; Admin Dose 50 MCG; Start 07/29/18 at 09:00 Levothyroxine Sodium (Synthroid) 50 mcg BEFORE BREAKFAST PO Last administered on 08/08/18 06:14; Admin Dose 50 MCG; Start 07/29/18 at 07:00 Metoprolol Succinate (Toprol Xl) 25 mg BID PO Last administered on 08/08/18 08:26; Admin Dose 25 MG; Start 07/29/18 at 09:00 Polyethyl Glycol/ Propylene Glycol (Systane 0.3-0.4% Eye Drops) 1 drop Q4H PRN BOTH EYES DRY EYES; Start 07/29/18 at 08:00 Albuterol (Ventolin Hfa) 2 puff Q4H RESP THERAPY PRN INH WHEEZING; Start 07/29/18 at 09:00 Miscellaneous Information 1 ea NOTE XX ; Start 07/29/18 at 07:00 Glucose (Glutose) 15 gm Q15M PRN PO DECREASED GLUCOSE; Start 07/29/18 at 07:00 Glucose (Glutose) 22.5 gm Q15M PRN PO DECREASED GLUCOSE; Start 07/29/18 at 07:00 Dextrose (D50w Syringe) 25 ml Q15M PRN IV DECREASED GLUCOSE; Start 07/29/18 at 07:00 Dextrose (D50w Syringe) 50 ml Q15M PRN IV DECREASED GLUCOSE; Start 07/29/18 at 07:00 Glucagon (Glucagen) 1 mg Q15M PRN IM DECREASED GLUCOSE; Start 07/29/18 at 07:00 Glucose (Glutose) 15 gm Q15M PRN BUCCAL DECREASED GLUCOSE; Start 07/29/18 at 07:00 Alprazolam (Xanax) 0.25 mg Q8H PRN PO ANXIETY Last administered on 08/07/18 22:23; Admin Dose 0.25 MG; Start 07/29/18 at 12:30 Polyethylene Glycol (Miralax) 17 gm DAILY PO Last administered on 08/08/18 08:36; Admin Dose 17 GM; Start 07/29/18 at 12:30 Docusate Sodium (Colace) 100 mg BID PO Last administered on 08/08/18 08:25; Admin Dose 100 MG; Start 07/31/18 at 21:00 Magnesium Hydroxide (Milk Of Mag) 30 ml Q12H PRN PO STOMACH UPSET/CRAMPING Last administered on 07/31/18 21:28; Admin Dose 30 ML; Start 07/31/18 at 20:00 Al Hydrox/Mg Hydrox/Simethicone (Mag-Al Plus) 30 ml Q6H PRN PO GASTROINTESTINAL UPSET Last administered on 08/04/18 20:31; Admin Dose 30 ML; Start 08/03/18 at 17:30 Trazodone HCl (Desyrel) 25 mg HS PRN PO insomnia Last administered on 08/07/18 20:42; Admin Dose 25 MG; Start 08/07/18 at 19:00 Insulin Aspart (Novolog Insulin Pen) (Adult SC Insulin - Moder... AC BREAKFAST BEDTIME SC Last administered on 08/08/18 08:30; Admin Dose 2 UNIT; Start 08/07/18 at 21:00 SANDI MURDOCK NP Aug 08, 2018 10:28
[2018-08-08 14:00] VITALS: BP 107/58; PULSE 74; RESP 18
--- NOTE | 2018-08-08 16:11 | PN ---
Date/Time of Note Date/Time of Note DATE: 08/08/18 TIME: 16:07 Assessment/Plan VTE Prophylaxis Risk score (from Ns)>0 risk: 3 SCD applied (from Ns): No SCD contraindicated: other (scds) Pharmacological prophylaxis: other (scds) Lines/Catheters IV Catheter Type (from [facility]): Saline Lock Urinary Cath still in place: No Assessment/Plan Hospital Course Assessment/Plan Assessment: Hepatic lesions -liver bx ordered by Oncology Moderate to large Right pleural effusions Constipation - large amounts of retained stool on imaging - possible compression of rectum by the uterine mass Anorexia with decreased oral intake Abdominal pain- improved Weight loss of 20 lbs - likely related to malignancy Uterine mass - possible malignancy on MRI Elevated CA 19-9 and CA 125 EDILMA Diabetes Hypothyroidism Hx of peripheral artery disease Plan: Liver bx ordered Continue current bowel regimen Pt now having BM-s on a regular basis- multiple times today Onc with ongoing work-up regarding liver lesions- bx ordered GI will sign off but will be available upon reconsult as needed Patient seen in collaboration with Dr. Boswell. Subjective: Currently resting, in no apparent distress. Family at bedside, no c/o n/v or abd pain Pt with multiple BM's today. PHYSICAL EXAMINATION: GENERAL: Well developed, well nourished, alert & oriented x 3, in no acute distress SKIN: No lesions HEAD: Normocephalic, atraumatic, no tenderness. EARS/NOSE AND THROAT: Ears normal, nose normal NECK: Supple, no masses CHEST: Inspection within normal limits. CARDIOVASCULAR: Heart: Regular rate and rhythm RESPIRATORY: Lungs clear to auscultation GASTROINTESTINAL AND LIVER: Abdomen: Soft, non tenderness, mildly distended, no hernias, no masses, no organomegaly, no ascites, no guarding, no rebound tenderness, normoactive bowel sounds. Rectal: Deferred. EXTREMITIES: No cyanosis, clubbing or edema. Result Diagram: 08/08/18 0909 08/08/18 0909 Results 24hrs Laboratory Tests Test 08/07/18 17:21 08/07/18 20:41 08/08/18 01:21 08/08/18 08:24 Bedside Glucose 94 251 H 230 H 147 Test 08/08/18 09:06 08/08/18 09:09 Alpha Fetoprotein 0.98 White Blood Count 11.0 H Red Blood Count 3.08 L Hemoglobin 8.6 L Hematocrit 27.2 L Mean Corpuscular 88.3 Volume Mean Corpuscular 27.9 L Hemoglobin Mean Corpuscular 31.6 L Hemoglobin Concent Red Cell 15.3 H Distribution Width Platelet Count 740 H Mean Platelet Volume 9.1 Immature 0.700 H Granulocytes % Neutrophils % 64.8 Lymphocytes % 20.2 Monocytes % 12.1 H Eosinophils % 1.8 Basophils % 0.4 Nucleated Red Blood 0.0 Cells % Immature 0.080 H Granulocytes # Neutrophils # 7.1 Lymphocytes # 2.2 Monocytes # 1.3 H Eosinophils # 0.2 Basophils # 0.0 Nucleated Red Blood 0.0 Cells # Sodium Level 139 Potassium Level 3.7 Chloride Level 106 Carbon Dioxide Level 21 Anion Gap 12 Blood Urea Nitrogen 41 H Creatinine 0.98 Est Glomerular 56 L Filtrat Rate mL/min Glucose Level 155 Calcium Level 9.1 Phosphorus Level 3.4 Magnesium Level 2.5 Exam/Review of Systems Exam Vitals Vital Signs Date Temp Pulse Resp B/P (MAP) Pulse Ox O2 O2 Flow FiO2 Time Delivery Rate 08/08/18 97.9 74 18 107/58 100 14:00 (74) 08/07/18 Room Air 14:04 Results Results 24hrs Laboratory Tests Test 08/07/18 17:21 08/07/18 20:41 08/08/18 01:21 08/08/18 08:24 Bedside Glucose 94 251 H 230 H 147 Test 08/08/18 09:06 08/08/18 09:09 Alpha Fetoprotein 0.98 White Blood Count 11.0 H Red Blood Count 3.08 L Hemoglobin 8.6 L Hematocrit 27.2 L Mean Corpuscular 88.3 Volume Mean Corpuscular 27.9 L Hemoglobin Mean Corpuscular 31.6 L Hemoglobin Concent Red Cell 15.3 H Distribution Width Platelet Count 740 H Mean Platelet Volume 9.1 Immature 0.700 H Granulocytes % Neutrophils % 64.8 Lymphocytes % 20.2 Monocytes % 12.1 H Eosinophils % 1.8 Basophils % 0.4 Nucleated Red Blood 0.0 Cells % Immature 0.080 H Granulocytes # Neutrophils # 7.1 Lymphocytes # 2.2 Monocytes # 1.3 H Eosinophils # 0.2 Basophils # 0.0 Nucleated Red Blood 0.0 Cells # Sodium Level 139 Potassium Level 3.7 Chloride Level 106 Carbon Dioxide Level 21 Anion Gap 12 Blood Urea Nitrogen 41 H Creatinine 0.98 Est Glomerular 56 L Filtrat Rate mL/min Glucose Level 155 Calcium Level 9.1 Phosphorus Level 3.4 Magnesium Level 2.5 Medications Medication Current Medications IV Flush (NS 3 ml) 3 ml PER PROTOCOL IV Last administered on 08/05/18 09:07; Admin Dose 3 ML; Start 07/29/18 at 06:30 Ondansetron HCl (Zofran Inj) 4 mg Q6H PRN IV NAUSEA/VOMITING Last administered on 08/02/18 19:33; Admin Dose 4 MG; Start 07/29/18 at 06:30 Acetaminophen (Tylenol Tab) 650 mg Q6H PRN PO .PAIN 1-3 OR TEMP Last administered on 08/07/18 21:26; Admin Dose 650 MG; Start 07/29/18 at 06:30 Acetaminophen/ Hydrocodone Bitart ([place] (5/325)) 1 tab Q6H PRN PO .MOD PAIN 4- 6; Start 07/29/18 at 06:30 Pantoprazole (Protonix Tab) 40 mg DAILY@06 PO Last administered on 08/08/18 06:14; Admin Dose 40 MG; Start 07/29/18 at 06:30 Enoxaparin Sodium (Lovenox) 30 mg DAILY SC Last administered on 08/08/18 08:28; Admin Dose 30 MG; Start 07/29/18 at 09:00 Diagnostic Test (Pha) (Accu-Chek) 1 ea 02 XX ; Start 07/30/18 at 02:00 Acetaminophen (Tylenol Tab) 650 mg Q6H PRN PO .PAIN 1-3 OR TEMP Last admi nistered on 08/02/18 11:53; Admin Dose 650 MG; Start 07/29/18 at 07:00 Eye Lubricant (Akwa Oint) 1 applic Q1H PRN BOTH EYES DRY EYES; Start 07/29/18 at 08:00 Aspirin (Halfprin) 81 mg DAILY PO Last administered on 08/08/18 08:25; Admin Dose 81 MG; Start 07/29/18 at 09:00 Atorvastatin Calcium (Lipitor) 20 mg QHS PO Last administered on 08/07/18 20:42; Admin Dose 20 MG; Start 07/29/18 at 21:00 Clopidogrel Bisulfate (plaVIX) 75 mg DAILY PO Last administered on 08/08/18 08:25; Admin Dose 75 MG; Start 07/29/18 at 09:00 Cyanocobalamin (Vitamin B12) 50 mcg DAILY PO Last administered on 08/08/18 08 :26; Admin Dose 50 MCG; Start 07/29/18 at 09:00 Levothyroxine Sodium (Synthroid) 50 mcg BEFORE BREAKFAST PO Last administered on 08/08/18 06:14; Admin Dose 50 MCG; Start 07/29/18 at 07:00 Metoprolol Succinate (Toprol Xl) 25 mg BID PO Last administered on 08/08/18 08:26; Admin Dose 25 MG; Start 07/29/18 at 09:00 Polyethyl Glycol/ Propylene Glycol (Systane 0.3-0.4% Eye Drops) 1 drop Q4H PRN BOTH EYES DRY EYES; Start 07/29/18 at 08:00 Albuterol (Ventolin Hfa) 2 puff Q4H RESP THERAPY PRN INH WHEEZING; Start 07/29/18 at 09:00 Miscellaneous Information 1 ea NOTE XX ; Start 07/29/18 at 07:00 Glucose (Glutose) 15 gm Q15M PRN PO DECREASED GLUCOSE; Start 07/29/18 at 07:00 Glucose (Glutose) 22.5 gm Q15M PRN PO DECREASED GLUCOSE; Start 07/29/18 at 07:00 Dextrose (D50w Syringe) 25 ml Q15M PRN IV DECREASED GLUCOSE; Start 07/29/18 at 07:00 Dextrose (D50w Syringe) 50 ml Q15M PRN IV DECREASED GLUCOSE; Start 07/29/18 at 07:00 Glucagon (Glucagen) 1 mg Q15M PRN IM DECREASED GLUCOSE; Start 07/29/18 at 07:00 Glucose (Glutose) 15 gm Q15M PRN BUCCAL DECREASED GLUCOSE; Start 07/29/18 at 07:00 Alprazolam (Xanax) 0.25 mg Q8H PRN PO ANXIETY Last administered on 08/07/18at 22:23; Admin Dose 0.25 MG; Start 07/29/18 at 12:30 Polyethylene Glycol (Miralax) 17 gm DAILY PO Last administered on 08/08/18at 08:36; Admin Dose 17 GM; Start 07/29/18 at 12:30 Docusate Sodium (Colace) 100 mg BID PO Last administered on 08/08/18 08:25; Admin Dose 100 MG; Start 07/31/18 at 21:00 Magnesium Hydroxide (Milk Of Mag) 30 ml Q12H PRN PO STOMACH UPSET/CRAMPING Last administered on 07/31/18 21:28; Admin Dose 30 ML; Start 07/31/18 at 20:00 Al Hydrox/Mg Hydrox/Simethicone (Mag-Al Plus) 30 ml Q6H PRN PO GASTROINTESTINAL UPSET Last administered on 08/04/18 20:31; Admin Dose 30 ML; Start 08/03/18 at 17:30 Trazodone HCl (Desyrel) 25 mg HS PRN PO insomnia Last administered on 08/07/18 20:42; Admin Dose 25 MG; Start 08/07/18 at 19:00 Insulin Aspart (Novolog Insulin Pen) (Adult SC Insulin - Moder... AC BREAKFAST BEDTIME SC Last administered on 08/08/18 08:30; Admin Dose 2 UNIT; Start 08/07/18 at 21:00 MARIN CASTLE Aug 08, 2018 16:11
[2018-08-08] MEDS: INSULIN ASPART [NOVOLOG] 3 ML PEN SC SCH ×2 (17:03→20:49)
[2018-08-08] MEDS: ALPRAZOLAM 0.25 MG TAB PO PRN (18:50)
[2018-08-08 20:00] VITALS: BP 122/59; PULSE 80; RESP 18
[2018-08-08] MEDS: ATORVASTATIN 20 MG TAB PO SCH (20:48)
[2018-08-08] MEDS: traZODone 50 MG TAB PO PRN (20:48)
[2018-08-08] MEDS ORDERED: LORAZEPAM 2 MG INJ IV ONE (23:00)
[2018-08-09] MEDS: ACCU-CHEK XX SCH (02:00)
[2018-08-09 02:54] VITALS: BP 117/56; PULSE 79; RESP 18
[2018-08-09] MEDS: PANTOPRAZOLE (EC) 40 MG TAB PO SCH (06:20)
[2018-08-09] MEDS: LEVOTHYROXINE 50 MCG TAB PO SCH (06:20)
[2018-08-09 08:05] VITALS: BP 101/51; PULSE 77; RESP 18
[2018-08-09 08:09] VITALS: BP 105/64; PULSE 86; RESP 18
[2018-08-09] MEDS: INSULIN ASPART [NOVOLOG] 3 ML PEN SC SCH ×5 (08:30→20:40)
[2018-08-09] MEDS: ENOXAPARIN 30 MG/0.3 ML SYG SC SCH (08:31)
[2018-08-09] MEDS: POLYETHYLENE GLYCOL 17 GM PACKET PO SCH (08:31)
[2018-08-09] MEDS: DOCUSATE SODIUM 100 MG CAP PO SCH ×2 (08:31→20:39)
[2018-08-09] MEDS: ASPIRIN (EC) 81 MG TAB PO SCH (08:31)
[2018-08-09] MEDS: METOPROLOL (XL) 25 MG TAB PO SCH ×2 (08:32→20:29)
[2018-08-09] MEDS: CYANOCOBALAMIN 100 MCG TAB PO SCH (08:33)
[2018-08-09] MEDS: CLOPIDOGREL 75 MG TAB PO SCH (08:41)
--- NOTE | 2018-08-09 09:48 | PN ---
DATE: 08/09/2018 SUBJECTIVE: The patient is stable, no events overnight. No fevers, chills, nausea, vomiting. OBJECTIVE: VITAL SIGNS: Blood pressure is 101/51, respiration 18, pulse 97, temperature 98.1. HEENT: Head is normocephalic. NECK: Supple. HEART: Regular rate. LUNGS: Show diminished breath sounds at the base. ABDOMEN: Soft, nontender to palpation without rebound or guarding. EXTREMITIES: Negative for clubbing, cyanosis, no edema. DERMATOLOGIC: No rashes. MUSCULOSKELETAL: No joint effusion. NEUROLOGIC: No change in exam. MEDICATIONS: Reviewed. LABORATORY DATA: Has been reviewed. ASSESSMENT AND PLAN: 1. Nonoliguric acute kidney injury with previous baseline creatinine of 0.9 mg/dL. Etiology of acut e kidney injury is secondary to hemodynamics, volume depletion. Renal function is improved. Continu e to monitor. 2. Anemia. Continue to monitor hemoglobin and hematocrit levels. 3. Hypokalemia. Monitor and replete as needed. 4. Mineral bone disorder. Monitor calcium and phosphorus levels. 5. Lower extremity edema secondary to venous insufficiency. Continue to monitor. 6. 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 Continue to monitor. Follow up with OB /PROTECTION CONSULTANT. 7. Anxiety disorder. Followup with psychiatry. 8. Elevated . Continue to monitor. Workup ongoing. 9. Diabetes. 10. Hypothyroidism. Dictated By: JACOB BROCK DO NR/NTS Conf#: [id number] DID#: [id number] CC: TAN MAIER MD;*End*
--- NOTE | 2018-08-09 09:49 | PN ---
Date/Time of Note Date/Time of Note DATE: 08/09/18 TIME: 09:47 Assessment/Plan VTE Prophylaxis Risk score (from Ns)>0 risk: 3 SCD applied (from Ns): No SCD contraindicated: other Pharmacological prophylaxis: LMWH Lines/Catheters IV Catheter Type (from [facility]): Saline Lock Urinary Cath still in place: No Assessment/Plan Hospital Course SUBJECTIVE: Awaiting liver biopsy. Having multiple BMs. OBJECTIVE: Physical Exam General: Adequately build 68 year-old female lying in bed in no apparent distress. HEENT: Normocephalic, atraumatic. Eyes: Anicteric sclerae, conjunctivae clear. ENT: Nasal septum midline, oral mucosa moist. Neck supple, no JVD noticed. Respiratory: Bilaterally clear breath sounds. No use of accessory muscles of respiration. No adventitious breath sounds. Cardiovascular: S1, S2 heard. Regular rate and rhythm. Abdomen: Soft, nontender, and nondistended. Bowel sounds positive in all 4 quadrants. Genitourinary: Deferred. Extremities: No cyanosis, no clubbing. Bilateral lower extremity 1+ edema. Neurologic: Cranial nerves II through XII grossly intact. The patient is awake, alert, and oriented. Skin: Normal skin turgor. No skin rashes. Labs & Vitals per chart ASSESSMENT & PLAN This is a 68-year-old female with past medical history of diabetes mellitus, peripheral artery disease, stroke, dyslipidemia, and hypothyroidism. The patient presented to the emergency room with multiple complaints including bilateral lower extremity edema, unintentional weight loss, etc. The patient was admitted to inpatient setting for further treatment and evaluation. The patient underwent a CT scan of the abdomen and pelvis on 08/01/2018 that showed abnormal enlargement of the uterus with significant thickening of the endometrial stripe with pelvis MRI showing irregular 9 cm exophytic posterior uterine mass. 1. Uterine mass. Elevated CEA 125. S/P Juice Tester/ONC evaluation, who recommended MRI of the liver. 2. Bilateral lower extremity edema. Etiology could be multifactorial including underlying diastolic heart failure, and venous insufficiency. Continue diuresis while carefully monitoring renal function as clinically indicated. 3. Peripheral artery disease. Being followed by vascular surgery. Optimize medical management. Continue aspirin plus Plavix. Continue statins. 4. Diabetes mellitus. Hemoglobin A1c 6.3. Continue sliding scale insulin. 5. Elevated CA-19-9. MRI of the abdomen showing multiple parenchymal and capsular liver lesions. Etiology unclear. Differential considerations include necrotic/cystic tumor versus abscess. Pending tissue sampling. 6. Constipation. Continue bowel regimen. Being followed by gastroenterology. 7. Hypothyroidism. Continue Synthroid. 8. Acute kidney injury. Being followed by nephrology. Use nephrotoxic drugs with caution. 9. Normocytic anemia. Etiology unclear. Monitor H&H closely. 10. Fluids, electrolytes, and nutrition. Carbohydrate controlled diet. 11. DVT prophylaxis. Subcutaneous Lovenox (renally dosed). 12. Plan. Continue current management. Await liver biopsy. The patient was seen in collaboration with Dr. Maddox. Result Diagram: 08/09/18 0739 08/09/18 0739 Results 24hrs Laboratory Tests Test 08/08/18 17:01 08/08/18 18:43 08/08/18 20:47 08/09/18 07:39 Bedside Glucose 279 H 179 135 White Blood Count 13.4 #H Red Blood Count 3.01 L Hemoglobin 8.4 L Hematocrit 26.2 L Mean Corpuscular 87.0 Volume Mean Corpuscular 27.9 L Hemoglobin Mean Corpuscular 32.1 Hemoglobin Concent Red Cell 15.4 H Distribution Width Platelet Count 748 H Mean Platelet Volume 9.4 Immature 0.700 H Granulocytes % Neutrophils % 64.2 Lymphocytes % 20.0 Monocytes % 13.5 H Eosinophils % 1.2 Basophils % 0.4 Nucleated Red Blood 0.0 Cells % Immature 0.090 H Granulocytes # Neutrophils # 8.6 H Lymphocytes # 2.7 Monocytes # 1.8 H Eosinophils # 0.2 Basophils # 0.1 Nucleated Red Blood 0.0 Cells # Prothrombin Time 13.0 Prothrombin Time 1.0 Ratio INR International 0.97 Normalized Ratio Activated 40.5 H Partial Thromboplast Time Sodium Level 134 L Potassium Level 4.4 Chloride Level 103 Carbon Dioxide Level 23 Anion Gap 8 Blood Urea Nitrogen 45 H Creatinine 1.13 H Est Glomerular 48 L Filtrat Rate mL/min Glucose Level 211 Calcium Level 9.2 Phosphorus Level 3.7 Magnesium Level 2.7 H Test 08/09/18 08:28 Bedside Glucose 224 H Exam/Review of Systems Exam Vitals Vital Signs Date Temp Pulse Resp B/P (MAP) Pulse Ox O2 O2 Flow FiO2 Time Delivery Rate 08/09/18 98.1 77 18 101/51 97 08:05 (68) 08/08/18 Room Air 20:00 Intake and Output 08/08/18 08/08/18 08/09/18 1515:00 23:00 07:00 IntakeIntake Total 520 ml 240 ml BalanceBalance 520 ml 240 ml Results Results 24hrs Laboratory Tests Test 08/08/18 17:01 08/08/18 18:43 08/08/18 20:47 08/09/18 07:39 Bedside Glucose 279 H 179 135 White Blood Count 13.4 #H Red Blood Count 3.01 L Hemoglobin 8.4 L Hematocrit 26.2 L Mean Corpuscular 87.0 Volume Mean Corpuscular 27.9 L Hemoglobin Mean Corpuscular 32.1 Hemoglobin Concent Red Cell 15.4 H Distribution Width Platelet Count 748 H Mean Platelet Volume 9.4 Immature 0.700 H Granulocytes % Neutrophils % 64.2 Lymphocytes % 20.0 Monocytes % 13.5 H Eosinophils % 1.2 Basophils % 0.4 Nucleated Red Blood 0.0 Cells % Immature 0.090 H Granulocytes # Neutrophils # 8.6 H Lymphocytes # 2.7 Monocytes # 1.8 H Eosinophils # 0.2 Basophils # 0.1 Nucleated Red Blood 0.0 Cells # Prothrombin Time 13.0 Prothrombin Time 1.0 Ratio INR International 0.97 Normalized Ratio Activated 40.5 H Partial Thromboplast Time Sodium Level 134 L Potassium Level 4.4 Chloride Level 103 Carbon Dioxide Level 23 Anion Gap 8 Blood Urea Nitrogen 45 H Creatinine 1.13 H Est Glomerular 48 L Filtrat Rate mL/min Glucose Level 211 Calcium Level 9.2 Phosphorus Level 3.7 Magnesium Level 2.7 H Test 08/09/18 08:28 Bedside Glucose 224 H Medications Medication Current Medications IV Flush (NS 3 ml) 3 ml PER PROTOCOL IV Last administered on 08/05/18 09:07; Admin Dose 3 ML; Start 07/29/18 at 06:30 Ondansetron HCl (Zofran Inj) 4 mg Q6H PRN IV NAUSEA/VOMITING Last administered on 08/02/18 19:33; Admin Dose 4 MG; Start 07/29/18 at 06:30 Acetaminophen (Tylenol Tab) 650 mg Q6H PRN PO .PAIN 1-3 OR TEMP Last administered on 08/07/18 21:26; Admin Dose 650 MG; Start 07/29/18 at 06:30 Acetaminophen/ Hydrocodone Bitart ([place] (5/325)) 1 tab Q6H PRN PO .MOD PAIN 4- 6; Start 07/29/18 at 06:30 Pantoprazole (Protonix Tab) 40 mg DAILY@06 PO Last administered on 08/09/18 06:20; Admin Dose 40 MG; Start 07/29/18 at 06:30 Enoxaparin Sodium (Lovenox) 30 mg DAILY SC Last administered on 08/09/18 08:31; Admin Dose 30 MG; Start 07/29/18 at 09:00 Diagnostic Test (Pha) (Accu-Chek) 1 ea 02 XX ; Start 07/30/18 at 02:00 Acetaminophen (Tylenol Tab) 650 mg Q6H PRN PO .PAIN 1-3 OR TEMP Last administered on 08/02/18 11:53; Admin Dose 650 MG; Start 07/29/18 at 07:00 Eye Lubricant (Akwa Oint) 1 applic Q1H PRN BOTH EYES DRY EYES; Start 07/29/18 at 08:00 Aspirin (Halfprin) 81 mg DAILY PO Last administered on 08/09/18 08:31; Admin Dose 81 MG; Start 07/29/18 at 09:00 Atorvastatin Calcium (Lipitor) 20 mg QHS PO Last administered on 08/08/18 20 :48; Admin Dose 20 MG; Start 07/29/18 at 21:00 Clopidogrel Bisulfate (plaVIX) 75 mg DAILY PO Last administered on 08/09/18 08:41; Admin Dose 75 MG; Start 07/29/18 at 09:00 Cyanocobalamin (Vitamin B12) 50 mcg DAILY PO Last administered on 08/09/18 08:33; Admin Dose 50 MCG; Start 07/29/18 at 09:00 Levothyroxine Sodium (Synthroid) 50 mcg BEFORE BREAKFAST PO Last administered on 08/09/18 06:20; Admin Dose 50 MCG; Start 07/29/18 at 07:00 Metoprolol Succinate (Toprol Xl) 25 mg BID PO Last administered on 08/09/18 08:32; Admin Dose 25 MG; Start 07/29/18 at 09:00 Polyethyl Glycol/ Propylene Glycol (Systane 0.3-0.4% Eye Drops) 1 drop Q4H PRN BOTH EYES DRY EYES; Start 07/29/18 at 08:00 Albuterol (Ventolin Hfa) 2 puff Q4H RESP THERAPY PRN INH WHEEZING; Start 07/29/18 at 09:00 Miscellaneous Information 1 ea NOTE XX ; Start 07/29/18 at 07:00 Glucose (Glutose) 15 gm Q15M PRN PO DECREASED GLUCOSE; Start 07/29/18 at 07:00 Glucose (Glutose) 22.5 gm Q15M PRN PO DECREASED GLUCOSE; Start 07/29/18 at 07:00 Dextrose (D50w Syringe) 25 ml Q15M PRN IV DECREASED GLUCOSE; Start 07/29/18 at 07:00 Dextrose (D50w Syringe) 50 ml Q15M PRN IV DECREASED GLUCOSE; Start 07/29/18 at 07:00 Glucagon (Glucagen) 1 mg Q15M PRN IM DECREASED GLUCOSE; Start 07/29/18 at 07:00 Glucose (Glutose) 15 gm Q15M PRN BUCCAL DECREASED GLUCOSE; Start 07/29/18 at 07:00 Alprazolam (Xanax) 0.25 mg Q8H PRN PO ANXIETY Last administered on 08/08/18at 18:50; Admin Dose 0.25 MG; Start 07/29/18 at 12:30 Polyethylene Glycol (Miralax) 17 gm DAILY PO Last administered on 08/09/18 08:31; Admin Dose 17 GM; Start 07/29/18 at 12:30 Docusate Sodium (Colace) 100 mg BID PO Last administered on 08/09/18 08:31; Admin Dose 100 MG; Start 07/31/18 at 21:00 Magnesium Hydroxide (Milk Of Mag) 30 ml Q12H PRN PO STOMACH UPSET/CRAMPING Last administered on 07/31/18 21:28; Admin Dose 30 ML; Start 07/31/18 at 20:00 Al Hydrox/Mg Hydrox/Simethicone (Mag-Al Plus) 30 ml Q6H PRN PO GASTROINTESTINAL UPSET Last administered on 08/04/18 20:31; Admin Dose 30 ML; Start 08/03/18 at 17:30 Trazodone HCl (Desyrel) 25 mg HS PRN PO insomnia Last administered on 08/08/18at 20:48; Admin Dose 25 MG; Start 08/07/18 at 19:00 Insulin Aspart (Novolog Insulin Pen) (Adult SC Insulin - Moder... AC MEALS AND BEDTIME SC Last administered on 08/09/18at 08:30; Admin Dose 6 UNIT; Start 08/08/18 at 17:30 SANDI MURDOCK NP Aug 09, 2018 09:49
[2018-08-09 14:34] VITALS: BP 114/51; PULSE 75; RESP 18
[2018-08-09] MEDS ORDERED: SOD CHLORIDE 0.9% 500 ML ONE (16:08)
[2018-08-09] MEDS ORDERED: FENTAnyl 50 MCG/ML VIAL ONE (16:08)
[2018-08-09] MEDS ORDERED: LIDOCAINE 1% (MDV) 20 ML INJ ONE (16:08)
[2018-08-09] MEDS: ALPRAZOLAM 0.25 MG TAB PO PRN (20:23)
[2018-08-09] MEDS: ZOLPIDEM 5 MG TAB PO PRN (20:23)
[2018-08-09] MEDS: INSULIN GLARGINE [LANTus] (100 UNITS/ML) SYG SC SCH (20:23)
[2018-08-09] MEDS: ATORVASTATIN 20 MG TAB PO SCH (20:23)
[2018-08-09 20:27] VITALS: BP 119/56; RESP 18
[2018-08-09 20:40] VITALS: PULSE 78
[2018-08-10] MEDS: ACCU-CHEK XX SCH (01:05)
[2018-08-10 02:34] VITALS: BP 107/63; PULSE 79; RESP 18
[2018-08-10] MEDS: HYDROCODONE/APAP (5/325) TAB PO PRN (03:38)
[2018-08-10] MEDS: ALPRAZOLAM 0.25 MG TAB PO PRN ×2 (05:03→15:58)
[2018-08-10] MEDS: PANTOPRAZOLE (EC) 40 MG TAB PO SCH (05:03)
[2018-08-10] MEDS: LEVOTHYROXINE 50 MCG TAB PO SCH (06:07)
[2018-08-10] MEDS: INSULIN ASPART [NOVOLOG] 3 ML PEN SC SCH ×7 (07:00→21:00)
[2018-08-10] MEDS: CYANOCOBALAMIN 100 MCG TAB PO SCH (08:42)
[2018-08-10] MEDS: ENOXAPARIN 30 MG/0.3 ML SYG SC SCH (08:43)
[2018-08-10] MEDS: CLOPIDOGREL 75 MG TAB PO SCH (08:43)
[2018-08-10] MEDS: ASPIRIN (EC) 81 MG TAB PO SCH (08:44)
[2018-08-10] MEDS: DOCUSATE SODIUM 100 MG CAP PO SCH ×2 (08:44→20:09)
[2018-08-10] MEDS: METOPROLOL (XL) 25 MG TAB PO SCH ×2 (08:45→21:39)
[2018-08-10] MEDS: POLYETHYLENE GLYCOL 17 GM PACKET PO SCH (08:45)
--- NOTE | 2018-08-10 08:52 | PN ---
DATE: 08/10/2018 SUBJECTIVE: The patient is stable, no events overnight. No fevers, chills, nausea, vomiting. OBJECTIVE: VITAL SIGNS: Blood pressure is 107/63, respiration 18, pulse 79, temperature 98.6. HEENT: Head is normocephalic. NECK: Supple. HEART: Regular rate. LUNGS: Show diminished breath sounds at the base. ABDOMEN: Soft, nontender to palpation without rebound or guarding. EXTREMITIES: Negative for clubbing, cyanosis, no edema. DERMATOLOGIC: No rashes. MUSCULOSKELETAL: No joint effusion. NEUROLOGIC: No change in exam. MEDICATIONS: The patient's medications have been reviewed. LABORATORY DATA: Has been reviewed. IMAGING STUDIES: Have been reviewed. ASSESSMENT AND PLAN: 1. Nonoliguric acute kidney injury with previous baseline creatinine of 0.9 mg/dL. Etiology of acut e kidney injury was felt to be secondary to hemodynamics. The patient's renal function improved with discontinued diuretic therapy and IV fluids. The patient's creatinine, however, increased in the la st 24 hours. This may be secondary to hemodynamics. At this point, continue current treatment plan, supportive care, renally dose all meds. Monitor closely. 2. Anemia. Monitor hemoglobin and hematocrit levels. 3. Hypokalemia. Continue to monitor and replete as needed. 4. Mineral bone disorder, monitor calcium and phosphorus levels. 5. Lower extremity edema, likely due to venous insufficiency. Continue to monitor, give intermitten t diuretic therapy as needed. 6. Liver mass. Etiology is unclear, status post needle biopsy. Follow up pathology. 7. Anxiety disorder. Follow up with psychiatry. 8. Diabetes. Continue current insulin regimen. 9. Hypothyroidism. Continue medical management. Dictated By: JACOB BROCK DO NR/NTS Conf#: [id number] DID#: [id number] CC: TAN MAIER MD; SANDRA AGUILERA MD;*End*
--- NOTE | 2018-08-10 09:36 | PN ---
Date/Time of Note Date/Time of Note DATE: 08/10/18 TIME: 09:33 Assessment/Plan VTE Prophylaxis Risk score (from Ns)>0 risk: 3 SCD applied (from Ns): No SCD contraindicated: other Pharmacological prophylaxis: LMWH Lines/Catheters IV Catheter Type (from [facility] Saline Lock Urinary Cath still in place: No Assessment/Plan Hospital Course SUBJECTIVE: Denies any complaints. OBJECTIVE: Physical Exam General: Adequately build 68 year-old female lying in bed in no apparent distress. HEENT: Normocephalic, atraumatic. Eyes: Anicteric sclerae, conjunctivae clear. ENT: Nasal septum midline, oral mucosa moist. Neck supple, no JVD noticed. Respiratory: Bilaterally clear breath sounds. No use of accessory muscles of respiration. No adventitious breath sounds. Cardiovascular: S1, S2 heard. Regular rate and rhythm. Abdomen: Soft, nontender, and nondistended. Bowel sounds positive in all 4 quadrants. Genitourinary: Deferred. Extremities: No cyanosis, no clubbing. Bilateral lower extremity 1+ edema. Neurologic: Cranial nerves II through XII grossly intact. The patient is awake, alert, and oriented. Skin: Normal skin turgor. No skin rashes. Labs & Vitals per chart ASSESSMENT & PLAN This is a 68-year-old female with past medical history of diabetes mellitus, peripheral artery disease, stroke, dyslipidemia, and hypothyroidism. The patient presented to the emergency room with multiple complaints including bilateral lower extremity edema, unintentional weight loss, etc. The patient was admitted to inpatient setting for further treatment and evaluation. The patient underwent a CT scan of the abdomen and pelvis on 08/01/2018 that showed abnormal enlargement of the uterus with significant thickening of the endometrial stripe with pelvis MRI showing irregular 9 cm exophytic posterior uterine mass. 1. Uterine mass. Elevated CEA 125. 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 2. Bilateral lower extremity edema. Etiology could be multifactorial including underlying diastolic heart failure, and venous insufficiency. Continue diuresis while carefully monitoring renal function as clinically indicated. 3. Peripheral artery disease. Being followed by vascular surgery. Optimize medical management. Continue aspirin plus Plavix. Continue statins. 4. Diabetes mellitus. Hemoglobin A1c 6.3. Continue sliding scale insulin. 5. Elevated CA-19-9. MRI of the abdomen showing multiple parenchymal and capsular liver lesions. Etiology unclear. Differential considerations include necrotic/cystic tumor versus abscess. S/P percutaneous biopsy on 08/09/2018. Pending pathology. 6. Constipation. Continue bowel regimen. Being followed by gastroenterology. 7. Hypothyroidism. Continue Synthroid. 8. Acute kidney injury. Being followed by nephrology. Use nephrotoxic drugs with caution. 9. Normocytic anemia. Etiology unclear. Monitor H&H closely. 10. Fluids, electrolytes, and nutrition. Carbohydrate controlled diet. 11. DVT prophylaxis. Subcutaneous Lovenox (renally dosed). 12. Plan. Continue current management. Pending pathology from liver biopsy. Repeat H&H. Hold Lovenox. The patient was seen in collaboration with Dr. Hancock. Result Diagram: 08/10/18 0652 08/10/18 0652 Results 24hrs Laboratory Tests Test 08/09/18 12:56 08/09/18 17:20 08/09/18 20:20 08/10/18 06:52 Bedside Glucose 244 H 181 137 White Blood Count 11.6 H Red Blood Count 2.68 L Hemoglobin 7.5 L Hematocrit 23.5 L Mean Corpuscular 87.7 Volume Mean Corpuscular 28.0 L Hemoglobin Mean Corpuscular 31.9 L Hemoglobin Concent Red Cell 15.5 H Distribution Width Platelet Count 643 H Mean Platelet Volume 9.2 Immature 0.900 H Granulocytes % Neutrophils % 63.8 Lymphocytes % 19.5 Monocytes % 13.4 H Eosinophils % 2.1 Basophils % 0.3 Nucleated Red Blood 0.0 Cells % Immature 0.100 H Granulocytes # Neutrophils # 7.4 Lymphocytes # 2.3 Monocytes # 1.6 H Eosinophils # 0.2 Basophils # 0.0 Nucleated Red Blood 0.0 Cells # Sodium Level 134 L Potassium Level 4.1 Chloride Level 106 Carbon Dioxide Level 21 Anion Gap 7 Blood Urea Nitrogen 45 H Creatinine 1.27 H Est Glomerular 42 L Filtrat Rate mL/min Glucose Level 139 # Calcium Level 8.8 Phosphorus Level 4.6 Magnesium Level 2.6 H Test 08/10/18 08:40 Bedside Glucose 122 Exam/Review of Systems Exam Vitals Vital Signs Date Temp Pulse Resp B/P (MAP) Pulse Ox O2 O2 Flow FiO2 Time Delivery Rate 08/10/18 98.6 79 18 107/63 97 02:34 (78) 08/08/18 Room Air 20:00 Intake and Output 08/09/18 08/09/18 08/10/18 1515:00 23:00 07:00 IntakeIntake Total 240 ml 180 ml 100 ml BalanceBalance 240 ml 180 ml 100 ml Results Results 24hrs Laboratory Tests Test 08/09/18 12:56 08/09/18 17:20 08/09/18 20:20 08/10/18 06:52 Bedside Glucose 244 H 181 137 White Blood Count 11.6 H Red Blood Count 2.68 L Hemoglobin 7.5 L Hematocrit 23.5 L Mean Corpuscular 87.7 Volume Mean Corpuscular 28.0 L Hemoglobin Mean Corpuscular 31.9 L Hemoglobin Concent Red Cell 15.5 H Distribution Width Platelet Count 643 H Mean Platelet Volume 9.2 Immature 0.900 H Granulocytes % Neutrophils % 63.8 Lymphocytes % 19.5 Monocytes % 13.4 H Eosinophils % 2.1 Basophils % 0.3 Nucleated Red Blood 0.0 Cells % Immature 0.100 H Granulocytes # Neutrophils # 7.4 Lymphocytes # 2.3 Monocytes # 1.6 H Eosinophils # 0.2 Basophils # 0.0 Nucleated Red Blood 0.0 Cells # Sodium Level 134 L Potassium Level 4.1 Chloride Level 106 Carbon Dioxide Level 21 Anion Gap 7 Blood Urea Nitrogen 45 H Creatinine 1.27 H Est Glomerular 42 L Filtrat Rate mL/min Glucose Level 139 # Calcium Level 8.8 Phosphorus Level 4.6 Magnesium Level 2.6 H Test 08/10/18 08:40 Bedside Glucose 122 Medications Medication Current Medications IV Flush (NS 3 ml) 3 ml PER PROTOCOL IV Last administered on 08/05/18 09:07; Admin Dose 3 ML; Start 07/29/18 at 06:30 Ondansetron HCl (Zofran Inj) 4 mg Q6H PRN IV NAUSEA/VOMITING Last administered on 08/02/18 19:33; Admin Dose 4 MG; Start 07/29/18 at 06:30 Acetaminophen/ Hydrocodone Bitart ([place] (5/325)) 1 tab Q6H PRN PO .MOD PAIN 4- 6 Last administered on 08/10/18 03:38; Admin Dose 1 TAB; Start 07/29/18 at 06:30 Pantoprazole (Protonix Tab) 40 mg DAILY@06 PO Last administered on 08/10/18 05:03; Admin Dose 40 MG; Start 07/29/18 at 06:30 Enoxaparin Sodium (Lovenox) 30 mg DAILY SC Last administered on 08/10/18 08: 43; Admin Dose 30 MG; Start 07/29/18 at 09:00 Diagnostic Test (Pha) (Accu-Chek) 1 ea 02 XX ; Start 07/30/18 at 02:00 Acetaminophen (Tylenol Tab) 650 mg Q6H PRN PO .PAIN 1-3 OR TEMP Last administered on 08/02/18 11:53; Admin Dose 650 MG; Start 07/29/18 at 07:00 Eye Lubricant (Akwa Oint) 1 applic Q1H PRN BOTH EYES DRY EYES; Start 07/29/18 at 08:00 Aspirin (Halfprin) 81 mg DAILY PO Last administered on 08/10/18 08:44; Admin Dose 81 MG; Start 07/29/18 at 09:00 Atorvastatin Calcium (Lipitor) 20 mg QHS PO Last administered on 08/09/18 20:23; Admin Dose 20 MG; Start 07/29/18 at 21:00 Clopidogrel Bisulfate (plaVIX) 75 mg DAILY PO Last administered on 08/10/18 08:43; Admin Dose 75 MG; Start 07/29/18 at 09:00 Cyanocobalamin (Vitamin B12) 50 mcg DAILY PO Last administered on 08/10/18 08:42; Admin Dose 50 MCG; Start 07/29/18 at 09:00 Levothyroxine Sodium (Synthroid) 50 mcg BEFORE BREAKFAST PO Last administered on 08/10/18 06:07; Admin Dose 50 MCG; Start 07/29/18 at 07:00 Metoprolol Succinate (Toprol Xl) 25 mg BID PO Last administered on 08/10/18 08:45; Admin Dose 25 MG; Start 07/29/18 at 09:00 Polyethyl Glycol/ Propylene Glycol (Systane 0.3-0.4% Eye Drops) 1 drop Q4H PRN BOTH EYES DRY EYES; Start 07/29/18 at 08:00 Albuterol (Ventolin Hfa) 2 puff Q4H RESP THERAPY PRN INH WHEEZING; Start 07/29/18 at 09:00 Miscellaneous Information 1 ea NOTE XX ; Start 07/29/18 at 07:00 Glucose (Glutose) 15 gm Q15M PRN PO DECREASED GLUCOSE; Start 07/29/18 at 07:00 Glucose (Glutose) 22.5 gm Q15M PRN PO DECREASED GLUCOSE; Start 07/29/18 at 07:00 Dextrose (D50w Syringe) 25 ml Q15M PRN IV DECREASED GLUCOSE; Start 07/29/18 at 07:00 Dextrose (D50w Syringe) 50 ml Q15M PRN IV DECREASED GLUCOSE; Start 07/29/18 at 07:00 Glucagon (Glucagen) 1 mg Q15M PRN IM DECREASED GLUCOSE; Start 07/29/18 at 07:00 Glucose (Glutose) 15 gm Q15M PRN BUCCAL DECREASED GLUCOSE; Start 07/29/18 at 07:00 Alprazolam (Xanax) 0.25 mg Q8H PRN PO ANXIETY Last administered on 08/10/18 05:03; Admin Dose 0.25 MG; Start 07/29/18 at 12:30 Polyethylene Glycol (Miralax) 17 gm DAILY PO Last administered on 08/09/18 08:31; Admin Dose 17 GM; Start 07/29/18 at 12:30 Docusate Sodium (Colace) 100 mg BID PO Last administered on 08/09/18 08:31; Admin Dose 100 MG; Start 07/31/18 at 21:00 Magnesium Hydroxide (Milk Of Mag) 30 ml Q12H PRN PO STOMACH UPSET/CRAMPING Last administered on 07/31/18 21:28; Admin Dose 30 ML; Start 07/31/18 at 20:00 Al Hydrox/Mg Hydrox/Simethicone (Mag-Al Plus) 30 ml Q6H PRN PO GASTROINTESTINAL UPSET Last administered on 08/04/18 20:31; Admin Dose 30 ML; Start 08/03/18 at 17:30 Trazodone HCl (Desyrel) 25 mg HS PRN PO insomnia Last administered on 08/08/18at 20:48; Admin Dose 25 MG; Start 08/07/18 at 19:00 Insulin Aspart (Novolog Insulin Pen) (Adult SC Insulin - Moder... AC MEALS AND BEDTIME SC Last administered on 08/09/18 17:22; Admin Dose 4 UNIT; Start 08/08/18 at 17:30 Insulin Glargine (Lantus) 8 units DAILY@2000 SC Last administered on 08/09/18at 20:23; Admin Dose 8 UNITS; Start 08/09/18 at 20:00 Insulin Aspart (Novolog Insulin Pen) 3 unit WITH MEALS SC Last administered on 08/10/18at 08:44; Admin Dose 3 UNIT; Start 08/09/18 at 18:00 Zolpidem Tartrate (Ambien) 5 mg ONCE PRN PO INSOMNIA Last administered on 08/09/18at 20:23; Admin Dose 5 MG; Start 08/09/18 at 20:00; Stop 08/10/18 at 19:59 SANDI MURDOCK NP Aug 10, 2018 09:36
--- NOTE | 2018-08-10 12:44 | CONS ---
Assessment/Plan Assessment/Plan Assessment/Plan (Daily) 68 yo woman with Stage IV endometrial cancer on the basis of a liver biopsy. The final report is pending. The patient is fluent but a coherent conversation is not possible due to dementia. ARTURO Murdock related to me that Dr. Nevarez is planning surgery to remove the uterus and I would agree with this approach. She is likely not curable but surgery would allow debulking at a minimum and would also allow better staging. Chemotherapy would be very difficult to administer given her dementia. Also curative treatment is not possible since she is already Stage IV. Family discussions would be needed, but a program of cytotoxic chemotherapy seems unlikely to be feasible given the behavioral issues that are present. Megace might provide some benefit but that can be discussed later. ARTURO Murdock will talk to Dr. Nevarez and family but I will be available as well. Consultation Date/Type/Reason Admit Date/Time 29 July 2018 Date of Consultation: Aug 10, 2018 Type of Consult Oncology Reason for Consultation Uterine cancer Requesting Provider: SANDI MURDOCK NP Date/Time of Note DATE: 08/10/18 TIME: 12:28 Hx of Present Illness 68 yo woman referred for uterine cancer. She came to the ER for bilateral pedal edema and weight loss. She was found to have a uterine mass and also liver lesion on CT. The liver lesion was biopsied and is consistent with metastatic uterine cancer. She has a past history of dementia, stroke, diabetes, peripheral artery disease, hypothyroidism and anemia. Past Medical History Home Meds Active Scripts Magnesium Oxide* (Mag-Oxide*) 400 Mg Tablet, 400 MG PO BID for 3 Days, #10 TAB Prov:FERNANDO YANCEY MD 07/08/18 Lactobacillus Rhamnosus GG (Culturelle) 1 Each Capsule, 1 CAP PO BID for 14 Days, #30 CAP Prov:FERNANDO YANCEY MD 07/08/18 Acetaminophen* (Tylenol*) 325 Mg Tablet, 650 MG PO Q6H PRN for .PAIN 1-3 OR TEMP for 10 Days, #10 TAB Prov:FERNANDO YANCEY MD 07/08/18 Lisinopril* (Lisinopril*) 5 Mg Tablet, 2.5 MG PO DAILY for 15 Days, #15 TAB Prov:FERNANDO YANCEY MD 07/08/18 Sulfamethoxazole/Trimethoprim (Sulfamethoxazole-Tmp Ds Tablet) 1 Each Tablet, 1 TAB PO BID for 5 Days, #10 TAB Prov:FERNANDO YANCEY MD 07/08/18 Reported Medications Sodium Bicarbonate* (Sodium Bicarbonate*) 650 Mg Tablet, 650 MG PO TID, TAB 07/05/18 Propylene Glycol-Peg 400 (Systane 0.3-0.4% Eye Drops) 0.3-0.4 % - 30 Ml Drops, 1 DROP BOTH EYES Q4H PRN for DRY EYES, #1 BOTTLE 07/05/18 Pantoprazole* (Protonix*) 40 Mg Tablet.dr, 40 MG PO QAM, TAB 07/05/18 Ondansetron Hcl* (Zofran*) 8 Mg Tablet, 8 MG PO Q6H PRN for NAUSEA AND OR VOMITING, TAB 07/05/18 Metoprolol Succinate* (Toprol XL*) 25 Mg Tab.sr.24h, 25 MG PO BID, #30 TAB 07/05/18 Metformin* (Glucophage*) 500 Mg Tab, 500 MG PO WITH BREAKFAST, #30 TAB 07/05/18 Levothyroxine Sodium* (Synthroid*) 50 Mcg Tablet, 50 MCG PO BEFORE BREAKFAST, #30 TAB 07/05/18 Hydrocodone/Acetaminophen ([place] 5-325 Tablet) 1 Each Tablet, 1 EACH PO Q6 PRN for PAIN, TAB 07/05/18 [place]-3 Fatty Acids/Fish Oil (Fish Oil 1,000 mg Capsule) 1 Each Capsule, 1 EACH PO DAILY, CAP 07/05/18 Cyanocobalamin* (Vitamin B-12*) 50 Mcg Tablet, 50 MCG PO DAILY, TAB 07/05/18 Clopidogrel Bisulfate (Clopidogrel) 75 Mg Tablet, 75 MG PO DAILY, #30 TAB 07/05/18 Atorvastatin Calcium* (Atorvastatin Calcium*) 20 Mg Tablet, 20 MG PO QHS, #30 TAB 07/05/18 Aspirin* (Aspirin* EC) 81 Mg Tablet.dr, 81 MG PO DAILY, TAB 07/05/18 Artificial Tears* (Akwa Oint*) 3.5 Gm Oint, 1 APPLIC BOTH EYES Q1H PRN for DRY EYES, #1 TUB 07/05/18 Albuterol Sulfate (Proair Respiclick) 90 Mcg Aer.pow.ba, 2 PUFFS INHALATION Q4 PRN for WHEEZING, BOTTLE 07/05/18 Medications Current Medications IV Flush (NS 3 ml) 3 ml PER PROTOCOL IV Last administered on 08/05/18 09:07; Admin Dose 3 ML; Start 07/29/18 at 06:30 Ondansetron HCl (Zofran Inj) 4 mg Q6H PRN IV NAUSEA/VOMITING Last administered on 08/02/18 19:33; Admin Dose 4 MG; Start 07/29/18 at 06:30 Acetaminophen/ Hydrocodone Bitart ([place] (5/325)) 1 tab Q6H PRN PO .MOD PAIN 4- 6 Last administered on 08/10/18 03:38; Admin Dose 1 TAB; Start 07/29/18 at 06:30 Pantoprazole (Protonix Tab) 40 mg DAILY@06 PO Last administered on 08/10/18 05:03; Admin Dose 40 MG; Start 07/29/18 at 06:30 Enoxaparin Sodium (Lovenox) 30 mg DAILY SC Last administered on 08/10/18 08:43; Admin Dose 30 MG; Start 07/29/18 at 09:00; Status Hold Diagnostic Test (Pha) (Accu-Chek) 1 ea 02 XX ; Start 07/30/18 at 02:00 Acetaminophen (Tylenol Tab) 650 mg Q6H PRN PO .PAIN 1-3 OR TEMP Last administered on 08/02/18 11:53; Admin Dose 650 MG; Start 07/29/18 at 07:00 Eye Lubricant (Akwa Oint) 1 applic Q1H PRN BOTH EYES DRY EYES; Start 07/29/18 at 08:00 Aspirin (Halfprin) 81 mg DAILY PO Last administered on 08/10/18 08:44; Admin Dose 81 MG; Start 07/29/18 at 09:00 Atorvastatin Calcium (Lipitor) 20 mg QHS PO Last administered on 08/09/18 20:23; Admin Dose 20 MG; Start 07/29/18 at 21:00 Clopidogrel Bisulfate (plaVIX) 75 mg DAILY PO Last administered on 08/10/18 08:43; Admin Dose 75 MG; Start 07/29/18 at 09:00 Cyanocobalamin (Vitamin B12) 50 mcg DAILY PO Last administered on 08/10/18 08:42; Admin Dose 50 MCG; Start 07/29/18 at 09:00 Levothyroxine Sodium (Synthroid) 50 mcg BEFORE BREAKFAST PO Last administered on 08/10/18at 06:07; Admin Dose 50 MCG; Start 07/29/18 at 07:00 Metoprolol Succinate (Toprol Xl) 25 mg BID PO Last administered on 08/10/18at 08:45; Admin Dose 25 MG; Start 07/29/18 at 09:00 Polyethyl Glycol/ Propylene Glycol (Systane 0.3-0.4% Eye Drops) 1 drop Q4H PRN BOTH EYES DRY EYES; Start 07/29/18 at 08:00 Albuterol (Ventolin Hfa) 2 puff Q4H RESP THERAPY PRN INH WHEEZING; Start 07/29/18 at 09:00 Miscellaneous Information 1 ea NOTE XX ; Start 07/29/18 at 07:00 Glucose (Glutose) 15 gm Q15M PRN PO DECREASED GLUCOSE; Start 07/29/18 at 07:00 Glucose (Glutose) 22.5 gm Q15M PRN PO DECREASED GLUCOSE; Start 07/29/18 at 07:00 Dextrose (D50w Syringe) 25 ml Q15M PRN IV DECREASED GLUCOSE; Start 07/29/18 at 07:00 Dextrose (D50w Syringe) 50 ml Q15M PRN IV DECREASED GLUCOSE; Start 07/29/18 at 07:00 Glucagon (Glucagen) 1 mg Q15M PRN IM DECREASED GLUCOSE; Start 07/29/18 at 07:00 Glucose (Glutose) 15 gm Q15M PRN BUCCAL DECREASED GLUCOSE; Start 07/29/18 at 07:00 Alprazolam (Xanax) 0.25 mg Q8H PRN PO ANXIETY Last administered on 08/10/18at 05:03; Admin Dose 0.25 MG; Start 07/29/18 at 12:30 Polyethylene Glycol (Miralax) 17 gm DAILY PO Last administered on 08/09/18at 08:31; Admin Dose 17 GM; Start 07/29/18 at 12:30 Docusate Sodium (Colace) 100 mg BID PO Last administered on 08/09/18 08:31; Admin Dose 100 MG; Start 07/31/18 at 21:00 Magnesium Hydroxide (Milk Of Mag) 30 ml Q12H PRN PO STOMACH UPSET/CRAMPING Last administered on 07/31/18 21:28; Admin Dose 30 ML; Start 07/31/18 at 20:00 Al Hydrox/Mg Hydrox/Simethicone (Mag-Al Plus) 30 ml Q6H PRN PO GASTROINTESTINAL UPSET Last administered on 08/04/18 20:31; Admin Dose 30 ML; Start 08/03/18 at 17:30 Trazodone HCl (Desyrel) 25 mg HS PRN PO insomnia Last administered on 08/08/18 20:48; Admin Dose 25 MG; Start 08/07/18 at 19:00 Insulin Aspart (Novolog Insulin Pen) (Adult SC Insulin - Moder... AC MEALS AND BEDTIME SC Last administered on 08/09/18 17:22; Admin Dose 4 UNIT; Start 08/08/18 at 17:30 Insulin Glargine (Lantus) 8 units DAILY@2000 SC Last administered on 08/09/18 20:23; Admin Dose 8 UNITS; Start 08/09/18 at 20:00 Insulin Aspart (Novolog Insulin Pen) 3 unit WITH MEALS SC Last administered on 08/10/18 08:44; Admin Dose 3 UNIT; Start 08/09/18 at 18:00 Zolpidem Tartrate (Ambien) 5 mg ONCE PRN PO INSOMNIA Last administered on 08/09/18 20:23; Admin Dose 5 MG; Start 08/09/18 at 20:00; Stop 08/10/18 at 19:59 Allergies: Coded Allergies: levofloxacin (Verified Allergy, Unknown, 07/05/18) Social History Alcohol Use: none Smoking Status: Never smoker Drug Use: none Exam/Review of Systems Exam Vitals Vital Signs Date Temp Pulse Resp B/P (MAP) Pulse Ox O2 O2 Flow FiO2 Time Delivery Rate 08/10/18 98.6 79 18 107/63 97 02:34 (78) 08/08/18 Room Air 20:00 Intake and Output 08/09/18 08/09/18 08/10/18 1515:00 23:00 07:00 IntakeIntake Total 240 ml 180 ml 100 ml BalanceBalance 240 ml 180 ml 100 ml Constitutional: alert Head: normocephalic Eyes: other (conjunctival pallor) ENMT: other (poor dentition) Neck: supple Respiratory: clear to auscultation Cardiovascular: regular rate and rhythm Gastrointestinal: soft, non-tender Extremities: edema (bilater pedal edema) Skin: other (atrophic) Results Result Diagram: 08/10/18 1006 08/10/18 0652 Results 24hrs Laboratory Tests Test 08/09/18 12:56 08/09/18 17:20 08/09/18 20:20 08/10/18 06:52 Bedside Glucose 244 H 181 137 White Blood Count 11.6 H Red Blood Count 2.68 L Hemoglobin 7.5 L Hematocrit 23.5 L Mean Corpuscular 87.7 Volume Mean Corpuscular 28.0 L Hemoglobin Mean Corpuscular 31.9 L Hemoglobin Concent Red Cell 15.5 H Distribution Width Platelet Count 643 H Mean Platelet Volume 9.2 Immature 0.900 H Granulocytes % Neutrophils % 63.8 Lymphocytes % 19.5 Monocytes % 13.4 H Eosinophils % 2.1 Basophils % 0.3 Nucleated Red Blood 0.0 Cells % Immature 0.100 H Granulocytes # Neutrophils # 7.4 Lymphocytes # 2.3 Monocytes # 1.6 H Eosinophils # 0.2 Basophils # 0.0 Nucleated Red Blood 0.0 Cells # Sodium Level 134 L Potassium Level 4.1 Chloride Level 106 Carbon Dioxide Level 21 Anion Gap 7 Blood Urea Nitrogen 45 H Creatinine 1.27 H Est Glomerular 42 L Filtrat Rate mL/min Glucose Level 139 # Calcium Level 8.8 Phosphorus Level 4.6 Magnesium Level 2.6 H Test 08/10/18 08:40 08/10/18 10:06 Bedside Glucose 122 Hemoglobin 8.6 L Hematocrit 26.8 L Medications Medication Current Medications IV Flush (NS 3 ml) 3 ml PER PROTOCOL IV Last administered on 08/05/18at 09:07; Admin Dose 3 ML; Start 07/29/18 at 06:30 Ondansetron HCl (Zofran Inj) 4 mg Q6H PRN IV NAUSEA/VOMITING Last administered on 08/02/18at 19:33; Admin Dose 4 MG; Start 07/29/18 at 06:30 Acetaminophen/ Hydrocodone Bitart ([place] (5/325)) 1 tab Q6H PRN PO .MOD PAIN 4- 6 Last administered on 08/10/18at 03:38; Admin Dose 1 TAB; Start 07/29/18 at 06:30 Pantoprazole (Protonix Tab) 40 mg DAILY@06 PO Last administered on 08/10/18 05:03; Admin Dose 40 MG; Start 07/29/18 at 06:30 Enoxaparin Sodium (Lovenox) 30 mg DAILY SC Last administered on 08/10/18 08:43; Admin Dose 30 MG; Start 07/29/18 at 09:00; Status Hold Diagnostic Test (Pha) (Accu-Chek) 1 ea 02 XX ; Start 07/30/18 at 02:00 Acetaminophen (Tylenol Tab) 650 mg Q6H PRN PO .PAIN 1-3 OR TEMP Last administered on 08/02/18 11:53; Admin Dose 650 MG; Start 07/29/18 at 07:00 Eye Lubricant (Akwa Oint) 1 applic Q1H PRN BOTH EYES DRY EYES; Start 07/29/18 at 08:00 Aspirin (Halfprin) 81 mg DAILY PO Last administered on 08/10/18 08:44; Admin Dose 81 MG; Start 07/29/18 at 09:00 Atorvastatin Calcium (Lipitor) 20 mg QHS PO Last administered on 08/09/18 20:23; Admin Dose 20 MG; Start 07/29/18 at 21:00 Clopidogrel Bisulfate (plaVIX) 75 mg DAILY PO Last administered on 08/10/18 08:43; Admin Dose 75 MG; Start 07/29/18 at 09:00 Cyanocobalamin (Vitamin B12) 50 mcg DAILY PO Last administered on 08/10/18 08:42; Admin Dose 50 MCG; Start 07/29/18 at 09:00 Levothyroxine Sodium (Synthroid) 50 mcg BEFORE BREAKFAST PO Last administered on 08/10/18 06:07; Admin Dose 50 MCG; Start 07/29/18 at 07:00 Metoprolol Succinate (Toprol Xl) 25 mg BID PO Last administered on 08/10/18 08:45; Admin Dose 25 MG; Start 07/29/18 at 09:00 Polyethyl Glycol/ Propylene Glycol (Systane 0.3-0.4% Eye Drops) 1 drop Q4H PRN BOTH EYES DRY EYES; Start 07/29/18 at 08:00 Albuterol (Ventolin Hfa) 2 puff Q4H RESP THERAPY PRN INH WHEEZING; Start 07/29/18 at 09:00 Miscellaneous Information 1 ea NOTE XX ; Start 07/29/18 at 07:00 Glucose (Glutose) 15 gm Q15M PRN PO DECREASED GLUCOSE; Start 07/29/18 at 07:00 Glucose (Glutose) 22.5 gm Q15M PRN PO DECREASED GLUCOSE; Start 07/29/18 at 07:00 Dextrose (D50w Syringe) 25 ml Q15M PRN IV DECREASED GLUCOSE; Start 07/29/18 at 07:00 Dextrose (D50w Syringe) 50 ml Q15M PRN IV DECREASED GLUCOSE; Start 07/29/18 at 07:00 Glucagon (Glucagen) 1 mg Q15M PRN IM DECREASED GLUCOSE; Start 07/29/18 at 07:00 Glucose (Glutose) 15 gm Q15M PRN BUCCAL DECREASED GLUCOSE; Start 07/29/18 at 07:00 Alprazolam (Xanax) 0.25 mg Q8H PRN PO ANXIETY Last administered on 08/10/18 05:03; Admin Dose 0.25 MG; Start 07/29/18 at 12:30 Polyethylene Glycol (Miralax) 17 gm DAILY PO Last administered on 08/09/18 08:31; Admin Dose 17 GM; Start 07/29/18 at 12:30 Docusate Sodium (Colace) 100 mg BID PO Last administered on 08/09/18 08:31; Admin Dose 100 MG; Start 07/31/18 at 21:00 Magnesium Hydroxide (Milk Of Mag) 30 ml Q12H PRN PO STOMACH UPSET/CRAMPING Last administered on 07/31/18at 21:28; Admin Dose 30 ML; Start 07/31/18 at 20:00 Al Hydrox/Mg Hydrox/Simethicone (Mag-Al Plus) 30 ml Q6H PRN PO GASTROINTESTINAL UPSET Last administered on 08/04/18 20:31; Admin Dose 30 ML; Start 08/03/18 at 17:30 Trazodone HCl (Desyrel) 25 mg HS PRN PO insomnia Last administered on 08/08/18 20:48; Admin Dose 25 MG; Start 08/07/18 at 19:00 Insulin Aspart (Novolog Insulin Pen) (Adult SC Insulin - Moder... AC MEALS AND BEDTIME SC Last administered on 08/09/18 17:22; Admin Dose 4 UNIT; Start 08/08/18 at 17:30 Insulin Glargine (Lantus) 8 units DAILY@2000 SC Last administered on 08/09/18at 20:23; Admin Dose 8 UNITS; Start 08/09/18 at 20:00 Insulin Aspart (Novolog Insulin Pen) 3 unit WITH MEALS SC Last administered on 08/10/18at 08:44; Admin Dose 3 UNIT; Start 08/09/18 at 18:00 Zolpidem Tartrate (Ambien) 5 mg ONCE PRN PO INSOMNIA Last administered on 08/09/18at 20:23; Admin Dose 5 MG; Start 08/09/18 at 20:00; Stop 08/10/18 at 19:59 TUAN BARRON MD Aug 10, 2018 12:39
[2018-08-10 13:47] VITALS: BP 105/52; PULSE 85; RESP 18
[2018-08-10] MEDS: ACETAMINOPHEN 325 MG TAB PO PRN (15:58)
[2018-08-10 19:59] VITALS: BP 102/55; PULSE 76; RESP 18
[2018-08-10] MEDS: INSULIN GLARGINE [LANTus] (100 UNITS/ML) SYG SC SCH (20:04)
[2018-08-10] MEDS: ATORVASTATIN 20 MG TAB PO SCH (20:09)
[2018-08-10] MEDS: ZOLPIDEM 5 MG TAB PO PRN (20:09)
[2018-08-11 01:46] VITALS: BP 118/70; PULSE 78; RESP 18
[2018-08-11] MEDS: ACCU-CHEK XX SCH (02:00)
[2018-08-11] MEDS: ALPRAZOLAM 0.25 MG TAB PO PRN ×2 (02:16→11:14)
[2018-08-11] MEDS: ONDANSETRON 4 MG INJ IV PRN (04:32)
[2018-08-11] MEDS: PANTOPRAZOLE (EC) 40 MG TAB PO SCH (05:58)
[2018-08-11] MEDS: LEVOTHYROXINE 50 MCG TAB PO SCH (06:00)
[2018-08-11] MEDS: INSULIN ASPART [NOVOLOG] 3 ML PEN SC SCH ×7 (07:00→21:00)
--- NOTE | 2018-08-11 07:08 | CONS ---
Consult Date/Type/Reason Admit Date/Time Jul 29, 2018 at 06:16 Initial Consult Date 08/10/18 Requesting Provider: SANDI MURDOCK NP Date/Time of Note DATE: 08/11/18 TIME: 07:04 Subjective No acute overnight events. Pt wants to be left alone. Objective Vitals Vital Signs Date Temp Pulse Resp B/P (MAP) Pulse Ox O2 O2 Flow FiO2 Time Delivery Rate 08/11/18 98.4 78 18 118/70 98 01:46 (86) 08/10/18 Room Air 13:47 Intake and Output 08/10/18 08/10/18 08/11/18 1515:00 23:00 07:00 IntakeIntake Total 700 ml BalanceBalance 700 ml Exam Unable to exam patient as she did not want to be touched Refused examination Results/Medications Result Diagram: 08/11/18 0534 08/11/18 0534 Results 24 hrs Laboratory Tests Test 08/10/18 08:40 08/10/18 10:06 08/10/18 12:46 08/10/18 17:26 Bedside Glucose 122 189 219 Hemoglobin 8.6 L Hematocrit 26.8 L Test 08/10/18 20:02 08/11/18 05:34 Bedside Glucose 129 White Blood Count 14.9 #H Red Blood Count 2.65 L Hemoglobin 7.7 L Hematocrit 23.3 L Mean Corpuscular 87.9 Volume Mean Corpuscular 29.1 Hemoglobin Mean Corpuscular 33.0 Hemoglobin Concent Red Cell 15.2 H Distribution Width Platelet Count 713 H Mean Platelet Volume 9.4 Immature 0.800 H Granulocytes % Neutrophils % 71.9 Lymphocytes % 15.6 Monocytes % 9.6 Eosinophils % 1.7 Basophils % 0.4 Nucleated Red Blood 0.0 Cells % Immature 0.120 H Granulocytes # Neutrophils # 10.7 H Lymphocytes # 2.3 Monocytes # 1.4 H Eosinophils # 0.3 Basophils # 0.1 Nucleated Red Blood 0.0 Cells # Sodium Level 135 Potassium Level 4.3 Chloride Level 108 Carbon Dioxide Level 19 L Anion Gap 8 Blood Urea Nitrogen 52 H Creatinine 1.27 H Est Glomerular 42 L Filtrat Rate mL/min Glucose Level 137 Calcium Level 8.9 Home Meds Active Scripts Magnesium Oxide* (Mag-Oxide*) 400 Mg Tablet, 400 MG PO BID for 3 Days, #10 TAB Prov:CHIKYARAPPA,FERNANDO K MD 07/08/18 Lactobacillus Rhamnosus GG (Culturelle) 1 Each Capsule, 1 CAP PO BID for 14 Days, #30 CAP Prov:FERNANDO YANCEY MD 07/08/18 Acetaminophen* (Tylenol*) 325 Mg Tablet, 650 MG PO Q6H PRN for .PAIN 1-3 OR TEMP for 10 Days, #10 TAB Prov:FERNANDO YANCEY MD 07/08/18 Lisinopril* (Lisinopril*) 5 Mg Tablet, 2.5 MG PO DAILY for 15 Days, #15 TAB Prov:FERNANDO YANCEY MD 07/08/18 Sulfamethoxazole/Trimethoprim (Sulfamethoxazole-Tmp Ds Tablet) 1 Each Tablet, 1 TAB PO BID for 5 Days, #10 TAB Prov:FERNANDO YANCEY MD 07/08/18 Reported Medications Sodium Bicarbonate* (Sodium Bicarbonate*) 650 Mg Tablet, 650 MG PO TID, TAB 07/05/18 Propylene Glycol-Peg 400 (Systane 0.3-0.4% Eye Drops) 0.3-0.4 % - 30 Ml Drops, 1 DROP BOTH EYES Q4H PRN for DRY EYES, #1 BOTTLE 07/05/18 Pantoprazole* (Protonix*) 40 Mg Tablet.dr, 40 MG PO QAM, TAB 07/05/18 Ondansetron Hcl* (Zofran*) 8 Mg Tablet, 8 MG PO Q6H PRN for NAUSEA AND OR VOMITING, TAB 07/05/18 Metoprolol Succinate* (Toprol XL*) 25 Mg Tab.sr.24h, 25 MG PO BID, #30 TAB 07/05/18 Metformin* (Glucophage*) 500 Mg Tab, 500 MG PO WITH BREAKFAST, #30 TAB 07/05/18 Levothyroxine Sodium* (Synthroid*) 50 Mcg Tablet, 50 MCG PO BEFORE BREAKFAST, #30 TAB 07/05/18 Hydrocodone/Acetaminophen ([place] 5-325 Tablet) 1 Each Tablet, 1 EACH PO Q6 PRN for PAIN, TAB 07/05/18 [place]-3 Fatty Acids/Fish Oil (Fish Oil 1,000 mg Capsule) 1 Each Capsule, 1 EACH PO DAILY, CAP 07/05/18 Cyanocobalamin* (Vitamin B-12*) 50 Mcg Tablet, 50 MCG PO DAILY, TAB 07/05/18 Clopidogrel Bisulfate (Clopidogrel) 75 Mg Tablet, 75 MG PO DAILY, #30 TAB 07/05/18 Atorvastatin Calcium* (Atorvastatin Calcium*) 20 Mg Tablet, 20 MG PO QHS, #30 TAB 07/05/18 Aspirin* (Aspirin* EC) 81 Mg Tablet.dr, 81 MG PO DAILY, TAB 07/05/18 Artificial Tears* (Akwa Oint*) 3.5 Gm Oint, 1 APPLIC BOTH EYES Q1H PRN for DRY EYES, #1 TUB 07/05/18 Albuterol Sulfate (Proair Respiclick) 90 Mcg Aer.pow.ba, 2 PUFFS INHALATION Q4 PRN for WHEEZING, BOTTLE 07/05/18 Medications Current Medications IV Flush (NS 3 ml) 3 ml PER PROTOCOL IV Last administered on 08/05/18at 09:07; Admin Dose 3 ML; Start 07/29/18 at 06:30 Ondansetron HCl (Zofran Inj) 4 mg Q6H PRN IV NAUSEA/VOMITING Last administered on 08/11/18at 04:32; Admin Dose 4 MG; Start 07/29/18 at 06:30 Acetaminophen/ Hydrocodone Bitart ([place] (5/325)) 1 tab Q6H PRN PO .MOD PAIN 4- 6 Last administered on 08/10/18at 03:38; Admin Dose 1 TAB; Start 07/29/18 at 06:30 Pantoprazole (Protonix Tab) 40 mg DAILY@06 PO Last administered on 08/11/18at 05:58; Admin Dose 40 MG; Start 07/29/18 at 06:30 Enoxaparin Sodium (Lovenox) 30 mg DAILY SC Last administered on 08/10/18at 08:43; Admin Dose 30 MG; Start 07/29/18 at 09:00; Status Hold Diagnostic Test (Pha) (Accu-Chek) 1 ea 02 XX ; Start 07/30/18 at 02:00 Acetaminophen (Tylenol Tab) 650 mg Q6H PRN PO .PAIN 1-3 OR TEMP Last administered on 08/10/18at 15:58; Admin Dose 650 MG; Start 07/29/18 at 07:00 Eye Lubricant (Akwa Oint) 1 applic Q1H PRN BOTH EYES DRY EYES; Start 07/29/18 at 08:00 Aspirin (Halfprin) 81 mg DAILY PO Last administered on 08/10/18at 08:44; Admin Dose 81 MG; Start 07/29/18 at 09:00 Atorvastatin Calcium (Lipitor) 20 mg QHS PO Last administered on 08/10/18at 20:09; Admin Dose 20 MG; Start 07/29/18 at 21:00 Clopidogrel Bisulfate (plaVIX) 75 mg DAILY PO Last administered on 08/10/18at 08:43; Admin Dose 75 MG; Start 07/29/18 at 09:00 Cyanocobalamin (Vitamin B12) 50 mcg DAILY PO Last administered on 08/10/18 08:42; Admin Dose 50 MCG; Start 07/29/18 at 09:00 Levothyroxine Sodium (Synthroid) 50 mcg BEFORE BREAKFAST PO Last administered on 08/11/18at 06:00; Admin Dose 50 MCG; Start 07/29/18 at 07:00 Metoprolol Succinate (Toprol Xl) 25 mg BID PO Last administered on 08/10/18at 2 1:39; Admin Dose 25 MG; Start 07/29/18 at 09:00 Polyethyl Glycol/ Propylene Glycol (Systane 0.3-0.4% Eye Drops) 1 drop Q4H PRN BOTH EYES DRY EYES; Start 07/29/18 at 08:00 Albuterol (Ventolin Hfa) 2 puff Q4H RESP THERAPY PRN INH WHEEZING; Start 07/29/18 at 09:00 Miscellaneous Information 1 ea NOTE XX ; Start 07/29/18 at 07:00 Glucose (Glutose) 15 gm Q15M PRN PO DECREASED GLUCOSE; Start 07/29/18 at 07:00 Glucose (Glutose) 22.5 gm Q15M PRN PO DECREASED GLUCOSE; Start 07/29/18 at 07:00 Dextrose (D50w Syringe) 25 ml Q15M PRN IV DECREASED GLUCOSE; Start 07/29/18 at 07:00 Dextrose (D50w Syringe) 50 ml Q15M PRN IV DECREASED GLUCOSE; Start 07/29/18 at 07:00 Glucagon (Glucagen) 1 mg Q15M PRN IM DECREASED GLUCOSE; Start 07/29/18 at 07:00 Glucose (Glutose) 15 gm Q15M PRN BUCCAL DECREASED GLUCOSE; Start 07/29/18 at 07:00 Alprazolam (Xanax) 0.25 mg Q8H PRN PO ANXIETY Last administered on 08/11/18 02:16; Admin Dose 0.25 MG; Start 07/29/18 at 12:30 Polyethylene Glycol (Miralax) 17 gm DAILY PO Last administered on 08/09/18 08:31; Admin Dose 17 GM; Start 07/29/18 at 12:30 Docusate Sodium (Colace) 100 mg BID PO Last administered on 08/09/18 08:31; Admin Dose 100 MG; Start 07/31/18 at 21:00 Magnesium Hydroxide (Milk Of Mag) 30 ml Q12H PRN PO STOMACH UPSET/CRAMPING Last administered on 07/31/18 21:28; Admin Dose 30 ML; Start 07/31/18 at 20:00 Al Hydrox/Mg Hydrox/Simethicone (Mag-Al Plus) 30 ml Q6H PRN PO GASTROINTESTINAL UPSET Last administered on 08/04/18 20:31; Admin Dose 30 ML; Start 08/03/18 at 17:30 Trazodone HCl (Desyrel) 25 mg HS PRN PO insomnia Last administered on 08/08/18 20:48; Admin Dose 25 MG; Start 08/07/18 at 19:00 Insulin Aspart (Novolog Insulin Pen) (Adult SC Insulin - Moder... AC MEALS AND BEDTIME SC Last administered on 08/10/18 17:28; Admin Dose 4 UNIT; Start 08/08 at 17:30 Insulin Glargine (Lantus) 8 units DAILY@2000 SC Last administered on 08/10/18 20:04; Admin Dose 8 UNITS; Start 08/09/18 at 20:00 Insulin Aspart (Novolog Insulin Pen) 3 unit WITH MEALS SC Last administered on 08/10/18 17:27; Admin Dose 3 UNIT; Start 08/09/18 at 18:00 Assessment/Plan Assessment/Plan (Daily) 68yo female with vaginal bleeding and signs of metastatic cancer. Likely arising from uterus. Await bx results. Pt has liver lesion present. She is also anemic. Unfortunately, her prognosis is guarded due to her underlying dementia which wo uld likely prevent her from receiving care (surgery, chemotherapy, etc). -Await bx results -AVRIL/SCD for DVT ppx. -Consider starting pt on IV iron to bolster Hb -Tx if less than 7g/dl -F/u weight recorder onc recs-not sure if palliative surgery feasible -Need to have realistic conversations with family-pt does not appear to be able to make appropriate decisions for herself. If further questions, please feel free to call. Dr. Mora to resume care on Monday JONES GONZALEZ Aug 11, 2018 07:08
[2018-08-11 07:58] VITALS: BP 116/55; PULSE 78; RESP 18
[2018-08-11] MEDS: CYANOCOBALAMIN 100 MCG TAB PO SCH (08:36)
[2018-08-11] MEDS: ASPIRIN (EC) 81 MG TAB PO SCH (08:36)
[2018-08-11] MEDS: METOPROLOL (XL) 25 MG TAB PO SCH ×2 (08:38→21:13)
[2018-08-11] MEDS: POLYETHYLENE GLYCOL 17 GM PACKET PO SCH (08:39)
[2018-08-11] MEDS: DOCUSATE SODIUM 100 MG CAP PO SCH ×2 (08:39→21:12)
[2018-08-11] MEDS: CLOPIDOGREL 75 MG TAB PO SCH (08:39)
[2018-08-11] MEDS: ACETAMINOPHEN 325 MG TAB PO PRN (08:48)
[2018-08-11] MEDS: ENOXAPARIN 30 MG/0.3 ML SYG SC SCH (09:00)
--- NOTE | 2018-08-11 09:41 | PN ---
Date/Time of Note Date/Time of Note DATE: 08/11/18 TIME: 09:33 Assessment/Plan VTE Prophylaxis Risk score (from Nsg)>0 risk: 3 SCD applied (from Ns): No SCD contraindicated: other Pharmacological prophylaxis: LMWH Lines/Catheters IV Catheter Type (from [facility]): Saline Lock Urinary Cath still in place: No Assessment/Plan Hospital Course SUBJECTIVE: Denies any complaints. OBJECTIVE: Physical Exam General: Adequately build 68 year-old female lying in bed in no apparent distress. HEENT: Normocephalic, atraumatic. Eyes: Anicteric sclerae, conjunctivae clear. ENT: Nasal septum midline, oral mucosa moist. Neck supple, no JVD noticed. Respiratory: Bilaterally clear breath sounds. No use of accessory muscles of respiration. No adventitious breath sounds. Cardiovascular: S1, S2 heard. Regular rate and rhythm. Abdomen: Soft, nontender, and nondistended. Bowel sounds positive in all 4 quadrants. Genitourinary: Deferred. Extremities: No cyanosis, no clubbing. Bilateral lower extremity 1+ edema. Neurologic: Cranial nerves II through XII grossly intact. The patient is awake, alert, and oriented. Skin: Normal skin turgor. No skin rashes. Labs & Vitals per chart ASSESSMENT & PLAN This is a 68-year-old female with past medical history of diabetes mellitus, peripheral artery disease, stroke, dyslipidemia, and hypothyroidism. The patient presented to the emergency room with multiple complaints including bilateral lower extremity edema, unintentional weight loss, etc. The patient was admitted to inpatient setting for further treatment and evaluation. The patient underwent a CT scan of the abdomen and pelvis on 08/01/2018 that showed abnormal enlargement of the uterus with significant thickening of the endometrial stripe with pelvis MRI showing irregular 9 cm exophytic posterior uterine mass. 1. 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 Final pathology pending. Being followed by gynecologic and medical oncology. Patient not a very good candidate for any chemotherapy as per oncology. May benefit from a debulking surgery because of the large pelvic mass. 2. Bilateral lower extremity edema. Etiology could be multifactorial including underlying diastolic heart failure, and venous insufficiency. Largely resolved. Continue diuresis while carefully monitoring renal function as clinically indica ashutosh. 3. Peripheral artery disease. Being followed by vascular surgery. Optimize medical management. Continue aspirin plus Plavix. Continue statins. 4. Diabetes mellitus. Hemoglobin A1c 6.3. Continue sliding scale insulin along with pre-meal insulin and basal. 5. Elevated CA-19-9. MRI of the abdomen showing multiple parenchymal and capsular liver lesions. S/P percutaneous biopsy on 08/09/2018 with pathology suggesting metastatic tumor. Pending official final pathology. 6. Constipation. Continue bowel regimen. Being followed by gastroenterology. 7. Hypothyroidism. Continue Synthroid. 8. Acute kidney injury. Being followed by nephrology. Use nephrotoxic drugs with caution. 9. Normocytic anemia. Etiology unclear. Monitor H&H closely. 10. Fluids, electrolytes, and nutrition. Carbohydrate controlled diet. 11. DVT prophylaxis. Subcutaneous Lovenox (renally dosed). 12. Plan. Continue current management. Pending final pathology from liver biopsy. Disposition: The patient has uterine mass with the metastatic lesions to the liver with official pathology results pending. The patient is not an ideal candidate for any chemotherapy as per oncology. Patient may benefit from pelvic surgery for removing the uterine mass. [employer]/Onc planning on surgical intervention in the near future after optimizing the patient medically. Meanwhile, the patient may be discharged home versus intermediate facility. Had a conversation with the patient's son Rk and informed him about the biopsy findings and he is going to meet me today afternoon to discuss further regarding the discharge planning. The patient was seen in collaboration with Dr. Hancock. Result Diagram: 08/11/18 0534 08/11/18 0534 Results 24hrs Laboratory Tests Test 08/10/18 10:06 08/10/18 12:46 08/10/18 17:26 08/10/18 20:02 Hemoglobin 8.6 L Hematocrit 26.8 L Bedside Glucose 189 219 129 Test 08/11/18 05:34 08/11/18 08:35 White Blood Count 14.9 #H Red Blood Count 2.65 L Hemoglobin 7.7 L Hematocrit 23.3 L Mean Corpuscular 87.9 Volume Mean Corpuscular 29.1 Hemoglobin Mean Corpuscular 33.0 Hemoglobin Concent Red Cell 15.2 H Distribution Width Platelet Count 713 H Mean Platelet Volume 9.4 Immature 0.800 H Granulocytes % Neutrophils % 71.9 Lymphocytes % 15.6 Monocytes % 9.6 Eosinophils % 1.7 Basophils % 0.4 Nucleated Red Blood 0.0 Cells % Immature 0.120 H Granulocytes # Neutrophils # 10.7 H Lymphocytes # 2.3 Monocytes # 1.4 H Eosinophils # 0.3 Basophils # 0.1 Nucleated Red Blood 0.0 Cells # Sodium Level 135 Potassium Level 4.3 Chloride Level 108 Carbon Dioxide Level 19 L Anion Gap 8 Blood Urea Nitrogen 52 H Creatinine 1.27 H Est Glomerular 42 L Filtrat Rate mL/min Glucose Level 137 Calcium Level 8.9 Phosphorus Level 5.0 H Magnesium Level 2.5 Bedside Glucose 136 Exam/Review of Systems Exam Vitals Vital Signs Date Temp Pulse Resp B/P (MAP) Pulse Ox O2 O2 Flow FiO2 Time Delivery Rate 08/11/18 97.8 78 18 116/55 100 Room Air 07:58 (75) Intake and Output 08/10/18 08/10/18 08/11/18 1515:00 23:00 07:00 IntakeIntake Total 700 ml BalanceBalance 700 ml Results Results 24hrs Laboratory Tests Test 08/10/18 10:06 08/10/18 12:46 08/10/18 17:26 08/10/18 20:02 Hemoglobin 8.6 L Hematocrit 26.8 L Bedside Glucose 189 219 129 Test 08/11/18 05:34 08/11/18 08:35 White Blood Count 14.9 #H Red Blood Count 2.65 L Hemoglobin 7.7 L Hematocrit 23.3 L Mean Corpuscular 87.9 Volume Mean Corpuscular 29.1 Hemoglobin Mean Corpuscular 33.0 Hemoglobin Concent Red Cell 15.2 H Distribution Width Platelet Count 713 H Mean Platelet Volume 9.4 Immature 0.800 H Granulocytes % Neutrophils % 71.9 Lymphocytes % 15.6 Monocytes % 9.6 Eosinophils % 1.7 Basophils % 0.4 Nucleated Red Blood 0.0 Cells % Immature 0.120 H Granulocytes # Neutrophils # 10.7 H Lymphocytes # 2.3 Monocytes # 1.4 H Eosinophils # 0.3 Basophils # 0.1 Nucleated Red Blood 0.0 Cells # Sodium Level 135 Potassium Level 4.3 Chloride Level 108 Carbon Dioxide Level 19 L Anion Gap 8 Blood Urea Nitrogen 52 H Creatinine 1.27 H Est Glomerular 42 L Filtrat Rate mL/min Glucose Level 137 Calcium Level 8.9 Phosphorus Level 5.0 H Magnesium Level 2.5 Bedside Glucose 136 Medications Medication Current Medications IV Flush (NS 3 ml) 3 ml PER PROTOCOL IV Last administered on 08/05/18at 09:07; Admin Dose 3 ML; Start 07/29/18 at 06:30 Ondansetron HCl (Zofran Inj) 4 mg Q6H PRN IV NAUSEA/VOMITING Last administered on 08/11/18 04:32; Admin Dose 4 MG; Start 07/29/18 at 06:30 Acetaminophen/ Hydrocodone Bitart ([place] (5/325)) 1 tab Q6H PRN PO .MOD PAIN 4- 6 Last administered on 08/10/18 03:38; Admin Dose 1 TAB; Start 07/29/18 at 06:30 Pantoprazole (Protonix Tab) 40 mg DAILY@06 PO Last administered on 08/11/18 05:58; Admin Dose 40 MG; Start 07/29/18 at 06:30 Enoxaparin Sodium (Lovenox) 30 mg DAILY SC Last administered on 08/10/18 08:43; Admin Dose 30 MG; Start 07/29/18 at 09:00 Diagnostic Test (Pha) (Accu-Chek) 1 ea 02 XX ; Start 07/30/18 at 02:00 Acetaminophen (Tylenol Tab) 650 mg Q6H PRN PO .PAIN 1-3 OR TEMP Last administered on 08/11/18 08:48; Admin Dose 650 MG; Start 07/29/18 at 07:00 Eye Lubricant (Akwa Oint) 1 applic Q1H PRN BOTH EYES DRY EYES; Start 07/29/18 at 08:00 Aspirin (Halfprin) 81 mg DAILY PO Last administered on 08/11/18 08:36; Admin Dose 81 MG; Start 07/29/18 at 09:00 Atorvastatin Calcium (Lipitor) 20 mg QHS PO Last administered on 08/10/18 20:09; Admin Dose 20 MG; Start 07/29/18 at 21:00 Clopidogrel Bisulfate (plaVIX) 75 mg DAILY PO Last administered on 08/11/18 08:39; Admin Dose 75 MG; Start 07/29/18 at 09:00 Cyanocobalamin (Vitamin B12) 50 mcg DAILY PO Last administered on 08/11/18 08:36; Admin Dose 50 MCG; Start 07/29/18 at 09:00 Levothyroxine Sodium (Synthroid) 50 mcg BEFORE BREAKFAST PO Last administered on 08/11/18 06:00; Admin Dose 50 MCG; Start 07/29/18 at 07:00 Metoprolol Succinate (Toprol Xl) 25 mg BID PO Last administered on 08/11/18at 08:38; Admin Dose 25 MG; Start 07/29/18 at 09:00 Polyethyl Glycol/ Propylene Glycol (Systane 0.3-0.4% Eye Drops) 1 drop Q4H PRN BOTH EYES DRY EYES; Start 07/29/18 at 08:00 Albuterol (Ventolin Hfa) 2 puff Q4H RESP THERAPY PRN INH WHEEZING; Start 07/29/18 at 09:00 Miscellaneous Information 1 ea NOTE XX ; Start 07/29/18 at 07:00 Glucose (Glutose) 15 gm Q15M PRN PO DECREASED GLUCOSE; Start 07/29/18 at 07:00 Glucose (Glutose) 22.5 gm Q15M PRN PO DECREASED GLUCOSE; Start 07/29/18 at 07:00 Dextrose (D50w Syringe) 25 ml Q15M PRN IV DECREASED GLUCOSE; Start 07/29/18 at 07:00 Dextrose (D50w Syringe) 50 ml Q15M PRN IV DECREASED GLUCOSE; Start 07/29/18 at 07:00 Glucagon (Glucagen) 1 mg Q15M PRN IM DECREASED GLUCOSE; Start 07/29/18 at 07:00 Glucose (Glutose) 15 gm Q15M PRN BUCCAL DECREASED GLUCOSE; Start 07/29/18 at 07:00 Alprazolam (Xanax) 0.25 mg Q8H PRN PO ANXIETY Last administered on 08/11/18at 02:16; Admin Dose 0.25 MG; Start 07/29/18 at 12:30 Polyethylene Glycol (Miralax) 17 gm DAILY PO Last administered on 08/11/18at 08:39; Admin Dose 17 GM; Start 07/29/18 at 12:30 Docusate Sodium (Colace) 100 mg BID PO Last administered on 08/11/18at 08:39; Admin Dose 100 MG; Start 07/31/18 at 21:00 Magnesium Hydroxide (Milk Of Mag) 30 ml Q12H PRN PO STOMACH UPSET/CRAMPING Last administered on 07/31/18at 21:28; Admin Dose 30 ML; Start 07/31/18 at 20:00 Al Hydrox/Mg Hydrox/Simethicone (Mag-Al Plus) 30 ml Q6H PRN PO GASTROINTESTINAL UPSET Last administered on 08/04/18 20:31; Admin Dose 30 ML; Start 08/03/18 at 17:30 Trazodone HCl (Desyrel) 25 mg HS PRN PO insomnia Last administered on 08/08/18 20:48; Admin Dose 25 MG; Start 08/07/18 at 19:00 Insulin Aspart (Novolog Insulin Pen) (Adult SC Insulin - Moder... AC MEALS AND BEDTIME SC Last administered on 08/10/18 17:28; Admin Dose 4 UNIT; Start 08/08/18 at 17:30 Insulin Glargine (Lantus) 8 units DAILY@2000 SC Last administered on 08/10/18 20:04; Admin Dose 8 UNITS; Start 08/09/18 at 20:00 Insulin Aspart (Novolog Insulin Pen) 3 unit WITH MEALS SC Last administered on 08/11/18 08:42; Admin Dose 3 UNIT; Start 08/09/18 at 18:00 SANDI MURDOCK NP Aug 11, 2018 09:41
[2018-08-11] MEDS: HYDROCODONE/APAP (5/325) TAB PO PRN ×2 (11:14→21:14)
--- NOTE | 2018-08-11 13:46 | CONS ---
Assessment/Plan Assessment/Plan Hospital Course (Demo Recall) 1. Nonoliguric acute kidney injury with previous baseline creatinine of 0.9 mg/dL. Etiology of acute kidney injury was felt to be secondary to hemodynamics. The patient's renal function improved with discontinued diuretic therapy and IV fluids. renal function stable. At this point, continue current treatment plan, supportive care, renally dose all meds. Monitor closely. 2. Anemia. Monitor hemoglobin and hematocrit levels. 3. Hypokalemia. Continue to monitor and replete as needed. 4. Mineral bone disorder, monitor calcium and phosphorus levels. 5. Lower extremity edema, likely due to venous insufficiency. Continue to monitor, give intermittent diuretic therapy as needed. 6. Liver mass. Etiology is unclear, status post needle biopsy. Follow up pathology. 7. Anxiety disorder. Follow up with psychiatry. 8. Diabetes. Continue current insulin regimen. 9. Hypothyroidism. Continue medical management. Consultation Date/Type/Reason Admit Date/Time Jul 29, 2018 at 06:16 Initial Consult Date 08/10/18 Requesting Provider: SANDI MURDOCK NP Date/Time of Note DATE: 08/11/18 TIME: 13:45 24 HR Interval Summary Free Text/Dictation denies shortness of breath, n/v or urinary issues d/w rn gen nad cv rrr pulm ctab abd soft, nd, nt +bs ext: no edema Exam/Review of Systems Exam Vitals Vital Signs Date Temp Pulse Resp B/P (MAP) Pulse Ox O2 O2 Flow FiO2 Time Delivery Rate 08/11/18 97.8 78 18 116/55 100 Room Air 07:58 (75) Intake and Output 08/10/18 08/10/18 08/11/18 1515:00 23:00 07:00 IntakeIntake Total 700 ml BalanceBalance 700 ml Results Result Diagram: 08/11/18 0534 08/11/18 0534 Results 24hrs Laboratory Tests Test 08/10/18 17:26 08/10/18 20:02 08/11/18 05:34 08/11/18 08:35 Bedside Glucose 219 129 136 White Blood Count 14.9 #H Red Blood Count 2.65 L Hemoglobin 7.7 L Hematocrit 23.3 L Mean Corpuscular 87.9 Volume Mean Corpuscular 29.1 Hemoglobin Mean Corpuscular 33.0 Hemoglobin Concent Red Cell 15.2 H Distribution Width Platelet Count 713 H Mean Platelet Volume 9.4 Immature 0.800 H Granulocytes % Neutrophils % 71.9 Lymphocytes % 15.6 Monocytes % 9.6 Eosinophils % 1.7 Basophils % 0.4 Nucleated Red Blood 0.0 Cells % Immature 0.120 H Granulocytes # Neutrophils # 10.7 H Lymphocytes # 2.3 Monocytes # 1.4 H Eosinophils # 0.3 Basophils # 0.1 Nucleated Red Blood 0.0 Cells # Sodium Level 135 Potassium Level 4.3 Chloride Level 108 Carbon Dioxide Level 19 L Anion Gap 8 Blood Urea Nitrogen 52 H Creatinine 1.27 H Est Glomerular 42 L Filtrat Rate mL/min Glucose Level 137 Calcium Level 8.9 Phosphorus Level 5.0 H Magnesium Level 2.5 Iron Level 16 L Total Iron Binding 305 Capacity Percent Iron 5 L Saturation Ferritin 36.9 Test 08/11/18 12:57 Bedside Glucose 232 H Medications Medication Current Medications IV Flush (NS 3 ml) 3 ml PER PROTOCOL IV Last administered on 08/05/18 09:07; Admin Dose 3 ML; Start 07/29/18 at 06:30 Ondansetron HCl (Zofran Inj) 4 mg Q6H PRN IV NAUSEA/VOMITING Last administered on 08/11/18 04:32; Admin Dose 4 MG; Start 07/29/18 at 06:30 Acetaminophen/ Hydrocodone Bitart ([place] (5/325)) 1 tab Q6H PRN PO .MOD PAIN 4- 6 Last administered on 08/11/18 11:14; Admin Dose 1 TAB; Start 07/29/18 at 06:30 Pantoprazole (Protonix Tab) 40 mg DAILY@06 PO Last administered on 08/11/18 05:58; Admin Dose 40 MG; Start 07/29/18 at 06:30 Enoxaparin Sodium (Lovenox) 30 mg DAILY SC Last administered on 08/10/18 08:43; Admin Dose 30 MG; Start 07/29/18 at 09:00 Diagnostic Test (Pha) (Accu-Chek) 1 ea 02 XX ; Start 07/30/18 at 02:00 Acetaminophen (Tylenol Tab) 650 mg Q6H PRN PO .PAIN 1-3 OR TEMP Last ad ministered on 08/10/18at 15:58; Admin Dose 650 MG; Start 07/29/18 at 07:00 Eye Lubricant (Akwa Oint) 1 applic Q1H PRN BOTH EYES DRY EYES; Start 07/29/18 at 08:00 Aspirin (Halfprin) 81 mg DAILY PO Last administered on 08/11/18at 08:36; Admin Dose 81 MG; Start 07/29/18 at 09:00 Atorvastatin Calcium (Lipitor) 20 mg QHS PO Last administered on 08/10/18at 20:09; Admin Dose 20 MG; Start 07/29/18 at 21:00 Clopidogrel Bisulfate (plaVIX) 75 mg DAILY PO Last administered on 08/11/18at 08:39; Admin Dose 75 MG; Start 07/29/18 at 09:00 Cyanocobalamin (Vitamin B12) 50 mcg DAILY PO Last administered on 08/11/18at 08:36; Admin Dose 50 MCG; Start 07/29/18 at 09:00 Levothyroxine Sodium (Synthroid) 50 mcg BEFORE BREAKFAST PO Last administered on 08/11/18at 06:00; Admin Dose 50 MCG; Start 07/29/18 at 07:00 Metoprolol Succinate (Toprol Xl) 25 mg BID PO Last administered on 08/11/18at 08:38; Admin Dose 25 MG; Start 07/29/18 at 09:00 Polyethyl Glycol/ Propylene Glycol (Systane 0.3-0.4% Eye Drops) 1 drop Q4H PRN BOTH EYES DRY EYES; Start 07/29/18 at 08:00 Albuterol (Ventolin Hfa) 2 puff Q4H RESP THERAPY PRN INH WHEEZING; Start 07/29/18 at 09:00 Miscellaneous Information 1 ea NOTE XX ; Start 07/29/18 at 07:00 Glucose (Glutose) 15 gm Q15M PRN PO DECREASED GLUCOSE; Start 07/29/18 at 07:00 Glucose (Glutose) 22.5 gm Q15M PRN PO DECREASED GLUCOSE; Start 07/29/18 at 07:00 Dextrose (D50w Syringe) 25 ml Q15M PRN IV DECREASED GLUCOSE; Start 07/29/18 at 07:00 Dextrose (D50w Syringe) 50 ml Q15M PRN IV DECREASED GLUCOSE; Start 07/29/18 at 07:00 Glucagon (Glucagen) 1 mg Q15M PRN IM DECREASED GLUCOSE; Start 07/29/18 at 07:00 Glucose (Glutose) 15 gm Q15M PRN BUCCAL DECREASED GLUCOSE; Start 07/29/18 at 07:00 Alprazolam (Xanax) 0.25 mg Q8H PRN PO ANXIETY Last administered on 08/11/18 11:14; Admin Dose 0.25 MG; Start 07/29/18 at 12:30 Polyethylene Glycol (Miralax) 17 gm DAILY PO Last administered on 08/11/18 08:39; Admin Dose 17 GM; Start 07/29/18 at 12:30 Docusate Sodium (Colace) 100 mg BID PO Last administered on 08/11/18 08:39; Admin Dose 100 MG; Start 07/31/18 at 21:00 Magnesium Hydroxide (Milk Of Mag) 30 ml Q12H PRN PO STOMACH UPSET/CRAMPING Last administered on 07/31/18 21:28; Admin Dose 30 ML; Start 07/31/18 at 20:00 Al Hydrox/Mg Hydrox/Simethicone (Mag-Al Plus) 30 ml Q6H PRN PO GASTROINTESTINAL UPSET Last administered on 08/04/18 20:31; Admin Dose 30 ML; Start 08/03/18 at 17:30 Trazodone HCl (Desyrel) 25 mg HS PRN PO insomnia Last administered on 08/08/18 20:48; Admin Dose 25 MG; Start 08/07/18 at 19:00 Insulin Aspart (Novolog Insulin Pen) (Adult SC Insulin - Moder... AC MEALS AND BEDTIME SC Last administered on 08/11/18 13:01; Admin Dose 6 UNIT; Start 08/08/18 at 17:30 Insulin Glargine (Lantus) 8 units DAILY@2000 SC Last administered on 08/10/18 20:04; Admin Dose 8 UNITS; Start 08/09/18 at 20:00 Insulin Aspart (Novolog Insulin Pen) 3 unit WITH MEALS SC Last administered on 08/11/18 13:00; Admin Dose 3 UNIT; Start 08/09/18 at 18:00 GEE GUTHRIE MD Aug 11, 2018 13:46
[2018-08-11 14:00] VITALS: BP 115/68; PULSE 72; RESP 18
[2018-08-11] MEDS: SOD FERRIC GLUC COMPLX 125 MG in SOD CHLORIDE 0.9% 100 ML IVPB SCH (20:00)
[2018-08-11 20:24] VITALS: BP 108/60; RESP 20
[2018-08-11] MEDS: INSULIN GLARGINE [LANTus] (100 UNITS/ML) SYG SC SCH (21:12)
[2018-08-11] MEDS: ATORVASTATIN 20 MG TAB PO SCH (21:12)
[2018-08-11] MEDS ORDERED: ZOLPIDEM 5 MG TAB PO PRN (22:00)
[2018-08-11 22:15] VITALS: BP 137/64; PULSE 78
[2018-08-12 00:55] VITALS: BP 130/57; PULSE 75; RESP 20
[2018-08-12] MEDS: ACCU-CHEK XX SCH (01:46)
--- NOTE | 2018-08-12 04:31 | CONS ---
DATE OF ADMISSION: 07/29/2018 DATE OF CONSULTATION: 08/11/2018 REASON FOR CONSULTATION: Preop cardiac clearance. HISTORY OF PRESENT ILLNESS: The patient is a 67-year-old female with uterine cancer with cardiology consulted for preop cardiac clearance. She denies chest pain, shortness of breath, dizziness, syncop e or palpitation. Denies nausea, vomiting. Denies fever, chills, or rigors. Denies prior history o f coronary artery disease, myocardial infarction. PAST MEDICAL HISTORY: Significant for hypertension, stroke, peripheral vascular disease, diabetes me llitus, renal failure, hypothyroidism. SOCIAL HISTORY: No smoking, alcohol or recreational drug. ALLERGIES: LEVOFLOXACIN. CURRENT MEDICATIONS: Include: 1. Toprol. 2. Colace. 3. Levothyroxine. 4. Lovenox. 5. Aspirin. 6. Plavix. 7. Vitamin B12. 8. Protonix. 9. Lantus. 10. NovoLog. 11. Lipitor. REVIEW OF SYSTEMS: Unremarkable except that mentioned in the HPI. PHYSICAL EXAMINATION: VITAL SIGNS: Temperature 98.1, heart rate of 72, blood pressure 150/68 mmHg, breathing at 18, satura ting 98% on room air. GENERAL: Patient awake, alert, oriented, in no apparent distress. NECK: No JVD or carotid bruit. CARDIOVASCULAR: Regular rate and rhythm. No murmur, rub or gallop. LUNGS: Clear to auscultation. ABDOMEN: Soft. Bowel sounds are present. There is no organomegaly. EXTREMITIES: Bilateral pedal edema. DIAGNOSTIC DATA: Review of 12-lead EKG shows normal sinus rhythm with a ventricular rate of 96 beats per minute with normal OH, normal QRS and normal QT intervals with low voltages and nonspecific ST-T wave changes. LABORATORY DATA: Chest x-ray 07/29/2018 shows a small right pleural effusion, calcified aorta consis tent with arthrosclerotic disease. WBC 14.1, hemoglobin 10.7, hematocrit 23.3 with a platelet of 713 . Sodium 135, potassium 4.8, chloride 108, CO2 19, BUN 52, creatinine 1.27. ASSESSMENT AND PLAN: 1. A 67-year-old female with uterine cancer. 2. Hypertension. 3. Stroke. 4. Peripheral arterial disease. 5. Diabetes mellitus. 6. Congestive heart failure. 7. Hypothyroidism. RECOMMENDATIONS: 1. Trend troponin q.8 x3, BNP, TSH, hemoglobin A1c, lipid panel. 2. Echocardiogram to assess for systolic function and pulmonary hypertension. 3. Lexiscan to rule out for reversible ischemia. 4. Continue Toprol. 5. Continue aspirin and Lovenox. 6. Continue Plavix. 7. Continue levothyroxine. 8. Continue Protonix. 9. Continue insulin. 10. Continue Lipitor. 11. Consider impression of cardiac risk factors with peripheral arterial disease. Will recommend Le xiscan to rule out for reversible ischemia prior to clearing for surgery. Dictated By: JACK CAMACHO MD SR/NTS Conf#: [id number] DID#: [id number] CC: TAN MAIER MD;*End*
[2018-08-12] MEDS: PANTOPRAZOLE (EC) 40 MG TAB PO SCH (06:02)
[2018-08-12] MEDS: LEVOTHYROXINE 50 MCG TAB PO SCH (06:02)
[2018-08-12 07:27] VITALS: BP 107/60; PULSE 74; RESP 16
[2018-08-12] MEDS: INSULIN ASPART [NOVOLOG] 3 ML PEN SC SCH ×7 (07:54→20:02)
--- NOTE | 2018-08-12 08:50 | PN ---
Date/Time of Note Date/Time of Note DATE: 08/12/18 TIME: 08:44 Assessment/Plan VTE Prophylaxis Risk score (from Nsg)>0 risk: 6 SCD applied (from Ns): No SCD contraindicated: other Pharmacological prophylaxis: LMWH Lines/Catheters IV [facility]ter [facility]from [facility] [place] Lock Urinary Cath still in place: No Assessment/Plan Hospital Course SUBJECTIVE: Complains of having constipation again. OBJECTIVE: Physical Exam General: Adequately build 68 year-old female lying in bed in no apparent distress. HEENT: Normocephalic, atraumatic. Eyes: Anicteric sclerae, conjunctivae clear. ENT: Nasal septum midline, oral mucosa moist. Neck supple, no JVD noticed. Respiratory: Bilaterally clear breath sounds. No use of accessory muscles of respiration. No adventitious breath sounds. Cardiovascular: S1, S2 heard. Regular rate and rhythm. Abdomen: Soft, nontender, and nondistended. Bowel sounds positive in all 4 quadrants. Genitourinary: Deferred. Extremities: No cyanosis, no clubbing. Bilateral lower extremity 1+ edema. Neurologic: Cranial nerves II through XII grossly intact. The patient is awake, alert, and oriented. Skin: Normal skin turgor. No skin rashes. Labs & Vitals per chart ASSESSMENT & PLAN This is a 68-year-old female with past medical history of diabetes mellitus, peripheral artery disease, stroke, dyslipidemia, and hypothyroidism. The patient presented to the emergency room with multiple complaints including bilateral lower extremity edema, unintentional weight loss, etc. The patient was admitted to inpatient setting for further treatment and evaluation. The patient underwent a CT scan of the abdomen and pelvis on 08/01/2018 that showed abnormal enlargement of the uterus with significant thickening of the endometrial stripe with pelvis MRI showing irregular 9 cm exophytic posterior uterine mass. 1. 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 Final pathology pending. Being followed by gynecologic and medical oncology. Patient not a very good candidate for any chemotherapy as per oncology. May benefit from a debulking surgery because of the large pelvic mass. 2. Bilateral lower extremity edema. Etiology could be multifactorial including underlying diastolic heart failure, and venous insufficiency. Largely resolved. Continue diuresis while carefully monitoring renal function as clinically indicated. 3. Peripheral artery disease. Being followed by vascular surgery. Optimize medical management. Continue aspirin plus Plavix. Continue statins. 4. Diabetes mellitus. Hemoglobin A1c 6.3. Continue sliding scale insulin along with pre-meal insulin and basal. 5. Elevated CA-19-9. MRI of the abdomen showing multiple parenchymal and capsular liver lesions. S/P percutaneous biopsy on 08/09/2018 with pathology suggesting metastatic tumor. Pending official final pathology. 6. Constipation. Continue bowel regimen. Being followed by gastroenterology. 7. Hypothyroidism. Continue Synthroid. 8. Acute kidney injury. Being followed by nephrology. Use nephrotoxic drugs with caution. 9. Normocytic anemia. Monitor H&H closely. Continue iron supplements. 10. Fluids, electrolytes, and nutrition. Carbohydrate controlled diet. 11. DVT prophylaxis. Subcutaneous Lovenox (renally dosed). 12. Plan. Continue current management. Repeat potassium level. If still elevated treat it. Pending final pathology from liver biopsy. Disposition: The patient has uterine mass with the metastatic lesions to the liver with official pathology results pending. The patient is not an ideal candidate for any chemotherapy as per oncology. Patient may benefit from pelvic surgery for removing the uterine mass. Protective Officer/Onc planning on surgical intervention in the near future after optimizing the patient medically. Meanwhile, the patient may be discharged home versus [facility] facility. Had a conversation with the patient's son Rk on 08/11/2018 and informed him about the biopsy findings. The patient's son wants to proceed with aggressive therapy. He requested for transferring the patient to a SNF once the patient is ready. Meanwhile, a cardiology consult has been obtained for cardiac clearance for surgery in then near future so that the patient can be brought back for surgery as per Dr. Nevarez. The patient was seen in collaboration with Dr. Hancock. Result Diagram: 08/12/18 0551 08/12/18 0551 Results 24hrs Laboratory Tests Test 08/11/18 12:57 08/11/18 17:31 08/11/18 18:21 08/11/18 21:10 Bedside Glucose 232 H 112 154 Troponin I < 0.012 Test 08/12/18 05:51 08/12/18 07:48 White Blood Count 12.5 H Red Blood Count 2.91 L Hemoglobin 8.2 L Hematocrit 25.7 L Mean Corpuscular 88.3 Volume Mean Corpuscular 28.2 L Hemoglobin Mean Corpuscular 31.9 L Hemoglobin Concent Red Cell 15.8 H Distribution Width Platelet Count 791 H Mean Platelet Volume 9.4 Immature 0.700 H Granulocytes % Neutrophils % 63.4 Lymphocytes % 21.5 Monocytes % 11.4 H Eosinophils % 2.6 Basophils % 0.4 Nucleated Red Blood 0.0 Cells % Immature 0.090 H Granulocytes # Neutrophils # 7.9 H Lymphocytes # 2.7 Monocytes # 1.4 H Eosinophils # 0.3 Basophils # 0.1 Nucleated Red Blood 0.0 Cells # Sodium Level 136 Potassium Level 5.9 H Chloride Level 107 Carbon Dioxide Level 21 Anion Gap 8 Blood Urea Nitrogen 52 H Creatinine 1.25 H Est Glomerular 42 L Filtrat Rate mL/min Glucose Level 118 Calcium Level 9.2 Phosphorus Level 4.7 Magnesium Level 2.6 H Troponin I < 0.012 Bedside Glucose 146 Exam/Review of Systems Exam Vitals Vital Signs Date Temp Pulse Resp B/P (MAP) Pulse Ox O2 O2 Flow FiO2 Time Delivery Rate 08/12/18 97.4 74 16 107/60 96 Room Air 07:27 (76) Intake and Output 08/11/18 08/11/18 08/12/18 1515:00 23:00 07:00 IntakeIntake Total 600 ml 200 ml BalanceBalance 600 ml 200 ml Results Results 24hrs Laboratory Tests Test 08/11/18 12:57 08/11/18 17:31 08/11/18 18:21 08/11/18 21:10 Bedside Glucose 232 H 112 154 Troponin I < 0.012 Test 08/12/18 05:51 08/12/18 07:48 White Blood Count 12.5 H Red Blood Count 2.91 L Hemoglobin 8.2 L Hematocrit 25.7 L Mean Corpuscular 88.3 Volume Mean Corpuscular 28.2 L Hemoglobin Mean Corpuscular 31.9 L Hemoglobin Concent Red Cell 15.8 H Distribution Width Platelet Count 791 H Mean Platelet Volume 9.4 Immature 0.700 H Granulocytes % Neutrophils % 63.4 Lymphocytes % 21.5 Monocytes % 11.4 H Eosinophils % 2.6 Basophils % 0.4 Nucleated Red Blood 0.0 Cells % Immature 0.090 H Granulocytes # Neutrophils # 7.9 H Lymphocytes # 2.7 Monocytes # 1.4 H Eosinophils # 0.3 Basophils # 0.1 Nucleated Red Blood 0.0 Cells # Sodium Level 136 Potassium Level 5.9 H Chloride Level 107 Carbon Dioxide Level 21 Anion Gap 8 Blood Urea Nitrogen 52 H Creatinine 1.25 H Est Glomerular 42 L Filtrat Rate mL/min Glucose Level 118 Calcium Level 9.2 Phosphorus Level 4.7 Magnesium Level 2.6 H Troponin I < 0.012 Bedside Glucose 146 Medications Medication Current Medications IV Flush (NS 3 ml) 3 ml PER PROTOCOL IV Last administered on 08/05/18 09:07; Admin Dose 3 ML; Start 07/29/18 at 06:30 Ondansetron HCl (Zofran Inj) 4 mg Q6H PRN IV NAUSEA/VOMITING Last administered on 08/11/18 04:32; Admin Dose 4 MG; Start 07/29/18 at 06:30 Acetaminophen/ Hydrocodone Bitart ([place] (5/325)) 1 tab Q6H PRN PO .MOD PAIN 4- 6 Last administered on 08/11/18 21:14; Admin Dose 1 TAB; Start 07/29/18 at 06:30 Pantoprazole (Protonix Tab) 40 mg DAILY@06 PO Last administered on 08/12/18 06:02; Admin Dose 40 MG; Start 07/29/18 at 06:30 Enoxaparin Sodium (Lovenox) 30 mg DAILY SC Last administered on 08/10/18 08:43; Admin Dose 30 MG; Start 07/29/18 at 09:00 Diagnostic Test (Pha) (Accu-Chek) 1 ea 02 XX ; Start 07/30/18 at 02:00 Acetaminophen (Tylenol Tab) 650 mg Q6H PRN PO .PAIN 1-3 OR TEMP Last administered on 08/10/18 15:58; Admin Dose 650 MG; Start 07/29/18 at 07:00 Eye Lubricant (Akwa Oint) 1 applic Q1H PRN BOTH EYES DRY EYES; Start 07/29/18 at 08:00 Aspirin (Halfprin) 81 mg DAILY PO Last administered on 08/11/18 08:36; Admin Dose 81 MG; Start 07/29/18 at 09:00 Atorvastatin Calcium (Lipitor) 20 mg QHS PO Last administered on 08/11/18 21:12; Admin Dose 20 MG; Start 07/29/18 at 21:00 Clopidogrel Bisulfate (plaVIX) 75 mg DAILY PO Last administered on 08/11/18 08:39; Admin Dose 75 MG; Start 07/29/18 at 09:00 Cyanocobalamin (Vitamin B12) 50 mcg DAILY PO Last administered on 08/11/18at 08:36; Admin Dose 50 MCG; Start 07/29/18 at 09:00 Levothyroxine Sodium (Synthroid) 50 mcg BEFORE BREAKFAST PO Last administered on 08/12/18at 06:02; Admin Dose 50 MCG; Start 07/29/18 at 07:00 Metoprolol Succinate (Toprol Xl) 25 mg BID PO Last administered on 08/11/18at 21:13; Admin Dose 25 MG; Start 07/29/18 at 09:00 Polyethyl Glycol/ Propylene Glycol (Systane 0.3-0.4% Eye Drops) 1 drop Q4H PRN BOTH EYES DRY EYES; Start 07/29/18 at 08:00 Albuterol (Ventolin Hfa) 2 puff Q4H RESP THERAPY PRN INH WHEEZING; Start 07/29/18 at 09:00 Miscellaneous Information 1 ea NOTE XX ; Start 07/29/18 at 07:00 Glucose (Glutose) 15 gm Q15M PRN PO DECREASED GLUCOSE; Start 07/29/18 at 07:00 Glucose (Glutose) 22.5 gm Q15M PRN PO DECREASED GLUCOSE; Start 07/29/18 at 07:00 Dextrose (D50w Syringe) 25 ml Q15M PRN IV DECREASED GLUCOSE; Start 07/29/18 at 07:00 Dextrose (D50w Syringe) 50 ml Q15M PRN IV DECREASED GLUCOSE; Start 07/29/18 at 07:00 Glucagon (Glucagen) 1 mg Q15M PRN IM DECREASED GLUCOSE; Start 07/29/18 at 07:00 Glucose (Glutose) 15 gm Q15M PRN BUCCAL DECREASED GLUCOSE; Start 07/29/18 at 07:00 Alprazolam (Xanax) 0.25 mg Q8H PRN PO ANXIETY Last administered on 08/11/18at 11:14; Admin Dose 0.25 MG; Start 07/29/18 at 12:30 Polyethylene Glycol (Miralax) 17 gm DAILY PO Last administered on 08/11/18at 08:39; Admin Dose 17 GM; Start 07/29/18 at 12:30 Docusate Sodium (Colace) 100 mg BID PO Last administered on 08/11/18at 21:12; Admin Dose 100 MG; Start 07/31/18 at 21:00 Magnesium Hydroxide (Milk Of Mag) 30 ml Q12H PRN PO STOMACH UPSET/CRAMPING Last administered on 07/31/18 21:28; Admin Dose 30 ML; Start 07/31/18 at 20:00 Al Hydrox/Mg Hydrox/Simethicone (Mag-Al Plus) 30 ml Q6H PRN PO GASTROINTESTINAL UPSET Last administered on 08/04/18 20:31; Admin Dose 30 ML; Start 08/03/18 at 17:30 Trazodone HCl (Desyrel) 25 mg HS PRN PO insomnia Last administered on 08/08/18 20:48; Admin Dose 25 MG; Start 08/07/18 at 19:00 Insulin Aspart (Novolog Insulin Pen) (Adult SC Insulin - Moder... AC MEALS AND BEDTIME SC Last administered on 08/12/18 07:54; Admin Dose 2 UNIT; Start 08/08/18 at 17:30 Insulin Glargine (Lantus) 8 units DAILY@2000 SC Last administered on 08/11/18 21:12; Admin Dose 8 UNITS; Start 08/09/18 at 20:00 Insulin Aspart (Novolog Insulin Pen) 3 unit WITH MEALS SC Last administered on 08/12/18 07:55; Admin Dose 3 UNIT; Start 08/09/18 at 18:00 Ferric Sodium Gluconate Complex 125 mg/Sodium Chloride 100 ml @ 100 mls/hr DAILY@1300 IVPB ; Start 08/11/18 at 20:00; Stop 08/13/18 at 13:59 SANDI MURDOCK NP Aug 12, 2018 08:50
[2018-08-12] MEDS: METOPROLOL (XL) 25 MG TAB PO SCH ×2 (08:54→20:03)
[2018-08-12] MEDS: POLYETHYLENE GLYCOL 17 GM PACKET PO SCH (08:54)
[2018-08-12] MEDS: CLOPIDOGREL 75 MG TAB PO SCH (08:54)
[2018-08-12] MEDS: DOCUSATE SODIUM 100 MG CAP PO SCH ×2 (08:54→20:10)
[2018-08-12] MEDS: ASPIRIN (EC) 81 MG TAB PO SCH (08:54)
[2018-08-12] MEDS: ENOXAPARIN 30 MG/0.3 ML SYG SC SCH (08:55)
[2018-08-12] MEDS: CYANOCOBALAMIN 100 MCG TAB PO SCH (08:55)
[2018-08-12] MEDS: AL HYDROX/MG HYDROX/SIMETH 30 ML CUP PO PRN (10:42)
[2018-08-12] MEDS: HYDROCODONE/APAP (5/325) TAB PO PRN ×2 (12:18→20:04)
[2018-08-12] MEDS: SOD FERRIC GLUC COMPLX 125 MG in SOD CHLORIDE 0.9% 100 ML IVPB SCH (12:19)
--- NOTE | 2018-08-12 13:07 | CONS ---
Assessment/Plan Assessment/Plan Hospital Course (Demo Recall) 1. Nonoliguric acute kidney injury with previous baseline creatinine of 0.9 mg/dL. Etiology of acute kidney injury was felt to be secondary to hemodynamics. The patient's renal function improved with discontinued diuretic therapy and IV fluids. renal function stable. At this point, continue current treatment plan, supportive care, renally dose all meds. Monitor closely. 2. Anemia. Monitor hemoglobin and hematocrit levels. 3. Hyperkalemia: will start low k diet and give kayexalate 4. Mineral bone disorder, monitor calcium and phosphorus levels. 5. Lower extremity edema, likely due to venous insufficiency. Continue to monitor, give intermittent diuretic therapy as needed. 6. Liver mass. Etiology is unclear, status post needle biopsy. Follow up pathology. 7. Anxiety disorder. Follow up with psychiatry. 8. Diabetes. Continue current insulin regimen. 9. Hypothyroidism. Continue medical management. Consultation Date/Type/Reason Admit Date/Time Jul 29, 2018 at 06:16 Initial Consult Date 08/10/18 Requesting Provider: SANDI MURDOCK NP Date/Time of Note DATE: 08/12/18 TIME: 13:06 24 HR Interval Summary Free Text/Dictation denies n/v or shortness of breath, urinating without problems d./w rn gen nad cv rrr pulm ctab abd soft, nd, nt +bs ext: no edema Exam/Review of Systems Exam Vitals Vital Signs Date Temp Pulse Resp B/P (MAP) Pulse Ox O2 O2 Flow FiO2 Time Delivery Rate 08/12/18 97.4 74 16 107/60 96 Room Air 07:27 (76) Intake and Output 08/11/18 08/11/18 08/12/18 1515:00 23:00 07:00 IntakeIntake Total 600 ml 200 ml BalanceBalance 600 ml 200 ml Results Result Diagram: 08/12/18 0551 08/12/18 0939 Results 24hrs Laboratory Tests Test 08/11/18 17:31 08/11/18 18:21 08/11/18 21:10 08/12/18 05:51 Bedside Glucose 112 154 Troponin I < 0.012 < 0.012 White Blood Count 12.5 H Red Blood Count 2.91 L Hemoglobin 8.2 L Hematocrit 25.7 L Mean Corpuscular 88.3 Volume Mean Corpuscular 28.2 L Hemoglobin Mean Corpuscular 31.9 L Hemoglobin Concent Red Cell 15.8 H Distribution Width Platelet Count 791 H Mean Platelet Volume 9.4 Immature 0.700 H Granulocytes % Neutrophils % 63.4 Lymphocytes % 21.5 Monocytes % 11.4 H Eosinophils % 2.6 Basophils % 0.4 Nucleated Red Blood 0.0 Cells % Immature 0.090 H Granulocytes # Neutrophils # 7.9 H Lymphocytes # 2.7 Monocytes # 1.4 H Eosinophils # 0.3 Basophils # 0.1 Nucleated Red Blood 0.0 Cells # Sodium Level 136 Potassium Level 5.9 H Chloride Level 107 Carbon Dioxide Level 21 Anion Gap 8 Blood Urea Nitrogen 52 H Creatinine 1.25 H Est Glomerular 42 L Filtrat Rate mL/min Glucose Level 118 Calcium Level 9.2 Phosphorus Level 4.7 Magnesium Level 2.6 H Test 08/12/18 07:48 08/12/18 09:39 08/12/18 12:15 Bedside Glucose 146 204 Potassium Level 5.4 H Medications Medication Current Medications IV Flush (NS 3 ml) 3 ml PER PROTOCOL IV Last administered on 08/05/18at 09:07; Admin Dose 3 ML; Start 07/29/18 at 06:30 Ondansetron HCl (Zofran Inj) 4 mg Q6H PRN IV NAUSEA/VOMITING Last administered on 08/11/18at 04:32; Admin Dose 4 MG; Start 07/29/18 at 06:30 Acetaminophen/ Hydrocodone Bitart ([place] (5/325)) 1 tab Q6H PRN PO .MOD PAIN 4- 6 Last administered on 08/12/18at 12:18; Admin Dose 1 TAB; Start 07/29/18 at 06:30 Pantoprazole (Protonix Tab) 40 mg DAILY@06 PO Last administered on 08/12/18at 06:02; Admin Dose 40 MG; Start 07/29/18 at 06:30 Enoxaparin Sodium (Lovenox) 30 mg DAILY SC Last administered on 08/12/18at 08:55; Admin Dose 30 MG; Start 07/29/18 at 09:00 Diagnostic Test (Pha) (Accu-Chek) 1 ea 02 XX ; Start 07/30/18 at 02:00 Acetaminophen (Tylenol Tab) 650 mg Q6H PRN PO .PAIN 1-3 OR TEMP Last admini stered on 08/10/18at 15:58; Admin Dose 650 MG; Start 07/29/18 at 07:00 Eye Lubricant (Akwa Oint) 1 applic Q1H PRN BOTH EYES DRY EYES; Start 07/29/18 at 08:00 Aspirin (Halfprin) 81 mg DAILY PO Last administered on 08/12/18 08:54; Admin Dose 81 MG; Start 07/29/18 at 09:00 Atorvastatin Calcium (Lipitor) 20 mg QHS PO Last administered on 08/11/18at 21:12; Admin Dose 20 MG; Start 07/29/18 at 21:00 Clopidogrel Bisulfate (plaVIX) 75 mg DAILY PO Last administered on 08/12/18 08:54; Admin Dose 75 MG; Start 07/29/18 at 09:00 Cyanocobalamin (Vitamin B12) 50 mcg DAILY PO Last administered on 08/12/18 08: 55; Admin Dose 50 MCG; Start 07/29/18 at 09:00 Levothyroxine Sodium (Synthroid) 50 mcg BEFORE BREAKFAST PO Last administered on 08/12/18at 06:02; Admin Dose 50 MCG; Start 07/29/18 at 07:00 Metoprolol Succinate (Toprol Xl) 25 mg BID PO Last administered on 08/12/18 08:54; Admin Dose 25 MG; Start 07/29/18 at 09:00 Polyethyl Glycol/ Propylene Glycol (Systane 0.3-0.4% Eye Drops) 1 drop Q4H PRN BOTH EYES DRY EYES; Start 07/29/18 at 08:00 Albuterol (Ventolin Hfa) 2 puff Q4H RESP THERAPY PRN INH WHEEZING; Start 07/29/18 at 09:00 Miscellaneous Information 1 ea NOTE XX ; Start 07/29/18 at 07:00 Glucose (Glutose) 15 gm Q15M PRN PO DECREASED GLUCOSE; Start 07/29/18 at 07:00 Glucose (Glutose) 22.5 gm Q15M PRN PO DECREASED GLUCOSE; Start 07/29/18 at 07:00 Dextrose (D50w Syringe) 25 ml Q15M PRN IV DECREASED GLUCOSE; Start 07/29/18 at 07:00 Dextrose (D50w Syringe) 50 ml Q15M PRN IV DECREASED GLUCOSE; Start 07/29/18 at 07:00 Glucagon (Glucagen) 1 mg Q15M PRN IM DECREASED GLUCOSE; Start 07/29/18 at 07:00 Glucose (Glutose) 15 gm Q15M PRN BUCCAL DECREASED GLUCOSE; Start 07/29/18 at 07:00 Alprazolam (Xanax) 0.25 mg Q8H PRN PO ANXIETY Last administered on 08/11/18 11:14; Admin Dose 0.25 MG; Start 07/29/18 at 12:30 Polyethylene Glycol (Miralax) 17 gm DAILY PO Last administered on 08/12/18 08:54; Admin Dose 17 GM; Start 07/29/18 at 12:30 Docusate Sodium (Colace) 100 mg BID PO Last administered on 08/12/18 08:54; Admin Dose 100 MG; Start 07/31/18 at 21:00 Magnesium Hydroxide (Milk Of Mag) 30 ml Q12H PRN PO STOMACH UPSET/CRAMPING Last administered on 07/31/18 21:28; Admin Dose 30 ML; Start 07/31/18 at 20:00 Al Hydrox/Mg Hydrox/Simethicone (Mag-Al Plus) 30 ml Q6H PRN PO GASTROINTESTINAL UPSET Last administered on 08/12/18 10:42; Admin Dose 30 ML; Start 08/03/18 at 17:30 Trazodone HCl (Desyrel) 25 mg HS PRN PO insomnia Last administered on 08/08/18 20:48; Admin Dose 25 MG; Start 08/07/18 at 19:00 Insulin Aspart (Novolog Insulin Pen) (Adult SC Insulin - Moder... AC MEALS AND BEDTIME SC Last administered on 08/12/18 12:20; Admin Dose 4 UNIT; Start 08/08/18 at 17:30 Insulin Glargine (Lantus) 8 units DAILY@2000 SC Last administered on 08/11/18 21:12; Admin Dose 8 UNITS; Start 08/09/18 at 20:00 Insulin Aspart (Novolog Insulin Pen) 3 unit WITH MEALS SC Last administered on 08/12/18 12:20; Admin Dose 3 UNIT; Start 08/09/18 at 18:00 Ferric Sodium Gluconate Complex 125 mg/Sodium Chloride 100 ml @ 100 mls/hr DAILY@1300 IVPB Last administered on 6/16/19at 12:19; Admin Dose 100 MLS/HR; Start 08/11/18 at 20:00; Stop 08/13/18 at 13:59 GEE GUTHRIE MD Aug 12, 2018 13:07
[2018-08-12] MEDS ORDERED: SODIUM POLYSTYRENE 15 GM KIT (POWDER + SORBITOL) PO ONE (13:30)
--- NOTE | 2018-08-12 14:03 | CONS ---
Assessment/Plan Assessment/Plan Assessment/Plan (Daily) 1. Uterine cancer. 2. Hypertension. 3. Stroke. 4. Peripheral arterial disease. 5. Diabetes mellitus. 6. Congestive heart failure. 7. Hypothyroidism. 07/31/18 Hyperdynamic left ventricular systolic function. Normal left ventricular cavity size. Normal left ventricular wall thickness. Ejection fraction is visually estimated at 70 %. Tissue Doppler/Mitral Doppler indices are consistent with impaired relaxation (Stage I diastolic dysfunction). RECOMMENDATIONS: Lexiscan to rule out for reversible ischemia. Scheduled for monday Continue Toprol. Continue aspirin and Lovenox. Continue Plavix. Continue levothyroxine. Continue Protonix. Continue insulin. Continue Lipitor. Consultation Date/Type/Reason Admit Date/Time Jul 29, 2018 at 06:16 Initial Consult Date 08/10/18 Type of Consult Cardiology Requesting Provider: SANDI MURDOCK NP Date/Time of Note DATE: 08/12/18 TIME: 14:01 Exam/Review of Systems Vital Signs Vitals Vital Signs Date Temp Pulse Resp B/P (MAP) Pulse Ox O2 O2 Flow FiO2 Time Delivery Rate 08/12/18 97.4 74 16 107/60 96 Room Air 07:27 (76) Intake and Output 08/11/18 08/11/18 08/12/18 1515:00 23:00 07:00 IntakeIntake Total 600 ml 200 ml BalanceBalance 600 ml 200 ml Exam Constitutional: alert Head: normocephalic, atraumatic Neck: supple, non-tender Respiratory: clear to auscultation Cardiovascular: regular rate and rhythm (no m/r/g) Extremities: normal pulses Labs Result Diagram: 08/12/18 0551 08/12/18 0939 Results 24hrs Laboratory Tests Test 08/11/18 17:31 08/11/18 18:21 08/11/18 21:10 08/12/18 05:51 Bedside Glucose 112 154 Troponin I < 0.012 < 0.012 White Blood Count 12.5 H Red Blood Count 2.91 L Hemoglobin 8.2 L Hematocrit 25.7 L Mean Corpuscular 88.3 Volume Mean Corpuscular 28.2 L Hemoglobin Mean Corpuscular 31.9 L Hemoglobin Concent Red Cell 15.8 H Distribution Width Platelet Count 791 H Mean Platelet Volume 9.4 Immature 0.700 H Granulocytes % Neutrophils % 63.4 Lymphocytes % 21.5 Monocytes % 11.4 H Eosinophils % 2.6 Basophils % 0.4 Nucleated Red Blood 0.0 Cells % Immature 0.090 H Granulocytes # Neutrophils # 7.9 H Lymphocytes # 2.7 Monocytes # 1.4 H Eosinophils # 0.3 Basophils # 0.1 Nucleated Red Blood 0.0 Cells # Sodium Level 136 Potassium Level 5.9 H Chloride Level 107 Carbon Dioxide Level 21 Anion Gap 8 Blood Urea Nitrogen 52 H Creatinine 1.25 H Est Glomerular 42 L Filtrat Rate mL/min Glucose Level 118 Calcium Level 9.2 Phosphorus Level 4.7 Magnesium Level 2.6 H Test 08/12/18 07:48 08/12/18 09:39 08/12/18 12:15 Bedside Glucose 146 204 Potassium Level 5.4 H Medications Medications Current Medications IV Flush (NS 3 ml) 3 ml PER PROTOCOL IV Last administered on 08/05/18 09:07; Admin Dose 3 ML; Start 07/29/18 at 06:30 Ondansetron HCl (Zofran Inj) 4 mg Q6H PRN IV NAUSEA/VOMITING Last administered on 08/11/18at 04:32; Admin Dose 4 MG; Start 07/29/18 at 06:30 Acetaminophen/ Hydrocodone Bitart ([place] (5/325)) 1 tab Q6H PRN PO .MOD PAIN 4- 6 Last administered on 08/12/18at 12:18; Admin Dose 1 TAB; Start 07/29/18 at 06:30 Pantoprazole (Protonix Tab) 40 mg DAILY@06 PO Last administered on 08/12/18at 06:02; Admin Dose 40 MG; Start 07/29/18 at 06:30 Enoxaparin Sodium (Lovenox) 30 mg DAILY SC Last administered on 08/12/18at 08:55; Admin Dose 30 MG; Start 07/29/18 at 09:00 Diagnostic Test (Pha) (Accu-Chek) 1 ea 02 XX ; Start 07/30/18 at 02:00 Acetaminophen (Tylenol Tab) 650 mg Q6H PRN PO .PAIN 1-3 OR TEMP Last administered on 08/10/18at 15:58; Admin Dose 650 MG; Start 07/29/18 at 07:00 Eye Lubricant (Akwa Oint) 1 applic Q1H PRN BOTH EYES DRY EYES; Start 07/29/18 at 08:00 Aspirin (Halfprin) 81 mg DAILY PO Last administered on 08/12/18at 08:54; Admin Dose 81 MG; Start 07/29/18 at 09:00 Atorvastatin Calcium (Lipitor) 20 mg QHS PO Last administered on 08/11/18at 21:12; Admin Dose 20 MG; Start 07/29/18 at 21:00 Clopidogrel Bisulfate (plaVIX) 75 mg DAILY PO Last administered on 08/12/18at 08:54; Admin Dose 75 MG; Start 07/29/18 at 09:00 Cyanocobalamin (Vitamin B12) 50 mcg DAILY PO Last administered on 08/12/18 08:55; Admin Dose 50 MCG; Start 07/29/18 at 09:00 Levothyroxine Sodium (Synthroid) 50 mcg BEFORE BREAKFAST PO Last administered on 08/12/18at 06:02; Admin Dose 50 MCG; Start 07/29/18 at 07:00 Metoprolol Succinate (Toprol Xl) 25 mg BID PO Last administered on 08/12/18at 08:54; Admin Dose 25 MG; Start 07/29/18 at 09:00 Polyethyl Glycol/ Propylene Glycol (Systane 0.3-0.4% Eye Drops) 1 drop Q4H PRN BOTH EYES DRY EYES; Start 07/29/18 at 08:00 Albuterol (Ventolin Hfa) 2 puff Q4H RESP THERAPY PRN INH WHEEZING; Start 07/29/18 at 09:00 Miscellaneous Information 1 ea NOTE XX ; Start 07/29/18 at 07:00 Glucose (Glutose) 15 gm Q15M PRN PO DECREASED GLUCOSE; Start 07/29/18 at 07:00 Glucose (Glutose) 22.5 gm Q15M PRN PO DECREASED GLUCOSE; Start 07/29/18 at 07:00 Dextrose (D50w Syringe) 25 ml Q15M PRN IV DECREASED GLUCOSE; Start 07/29/18 at 07:00 Dextrose (D50w Syringe) 50 ml Q15M PRN IV DECREASED GLUCOSE; Start 07/29/18 at 07:00 Glucagon (Glucagen) 1 mg Q15M PRN IM DECREASED GLUCOSE; Start 07/29/18 at 07:00 Glucose (Glutose) 15 gm Q15M PRN BUCCAL DECREASED GLUCOSE; Start 07/29/18 at 07:00 Alprazolam (Xanax) 0.25 mg Q8H PRN PO ANXIETY Last administered on 08/11/18 11:14; Admin Dose 0.25 MG; Start 07/29/18 at 12:30 Polyethylene Glycol (Miralax) 17 gm DAILY PO Last administered on 08/12/18 08:54; Admin Dose 17 GM; Start 07/29/18 at 12:30 Docusate Sodium (Colace) 100 mg BID PO Last administered on 08/12/18 08:54; Admin Dose 100 MG; Start 07/31/18 at 21:00 Magnesium Hydroxide (Milk Of Mag) 30 ml Q12H PRN PO STOMACH UPSET/CRAMPING Last administered on 07/31/18 21:28; Admin Dose 30 ML; Start 07/31/18 at 20:00 Al Hydrox/Mg Hydrox/Simethicone (Mag-Al Plus) 30 ml Q6H PRN PO GASTROINTESTINAL UPSET Last administered on 08/12/18 10:42; Admin Dose 30 ML; Start 08/03/18 at 17:30 Trazodone HCl (Desyrel) 25 mg HS PRN PO insomnia Last administered on 08/08/18 20:48; Admin Dose 25 MG; Start 08/07/18 at 19:00 Insulin Aspart (Novolog Insulin Pen) (Adult SC Insulin - Moder... AC MEALS AND BEDTIME SC Last administered on 08/12/18 12:20; Admin Dose 4 UNIT; Start 08/08/18 at 17:30 Insulin Glargine (Lantus) 8 units DAILY@2000 SC Last administered on 08/11/18 21:12; Admin Dose 8 UNITS; Start 08/09/18 at 20:00 Insulin Aspart (Novolog Insulin Pen) 3 unit WITH MEALS SC Last administered on 08/12/18 12:20; Admin Dose 3 UNIT; Start 08/09/18 at 18:00 Ferric Sodium Gluconate Complex 125 mg/Sodium Chloride 100 ml @ 100 mls/hr DAILY@1300 IVPB Last administered on 08/12/18 12:19; Admin Dose 100 MLS/HR; Start 08/11/18 at 20:00; Stop 08/13/18 at 13:59 JACK CAMACHO M.D. Aug 12, 2018 14:03
[2018-08-12 14:35] VITALS: BP 97/51; PULSE 77; RESP 15
[2018-08-12] MEDS: ACETAMINOPHEN 325 MG TAB PO PRN (16:11)
[2018-08-12 19:57] VITALS: BP 103/51; PULSE 73; RESP 18
[2018-08-12] MEDS: INSULIN GLARGINE [LANTus] (100 UNITS/ML) SYG SC SCH (20:01)
[2018-08-12] MEDS: ATORVASTATIN 20 MG TAB PO SCH (20:04)
[2018-08-12] MEDS: ZOLPIDEM 5 MG TAB PO PRN (21:47)
[2018-08-12 21:50] VITALS: BP 127/58; PULSE 83
[2018-08-13] VITALS (8 sets, daily range): BP systolic 104–130; BP diastolic 52–80; PULSE 78–92; RESP 18–22
[2018-08-13] MEDS: ACCU-CHEK XX SCH (01:04)
[2018-08-13] MEDS: PANTOPRAZOLE (EC) 40 MG TAB PO SCH (06:00)
[2018-08-13] MEDS: LEVOTHYROXINE 50 MCG TAB PO SCH (06:12)
[2018-08-13] MEDS: INSULIN ASPART [NOVOLOG] 3 ML PEN SC SCH ×7 (08:00→20:47)
--- NOTE | 2018-08-13 09:07 | PN ---
DATE: 08/13/2018 SUBJECTIVE: The patient is stable, no events overnight. No fevers, chills, nausea, vomiting. OBJECTIVE: VITAL SIGNS: Blood pressure is 130/60, respiration 18, pulse 89, temperature 97.9. HEENT: Head is normocephalic. NECK: Supple. HEART: Regular rate. LUNGS: Show diminished breath sounds at base. ABDOMEN: Soft, nontender to palpation without rebound or guarding. EXTREMITIES: Negative for clubbing, cyanosis. Trace edema. DERMATOLOGIC: No rashes. MUSCULOSKELETAL: No joint effusion. NEUROLOGIC: No change in exam. MEDICATIONS: Have been reviewed. LABORATORY DATA: Has been reviewed. ASSESSMENT AND PLAN: 1. Nonoliguric acute kidney injury with previous baseline creatinine of 0.9 mg/dL. Etiology of acut e kidney injury was initially felt to be secondary to hemodynamics. The patient's renal function did initially improve with IV fluids and discontinuing diuretic therapy. However, renal function has de clined in the last 24 to 48 hours. At this point, will continue to monitor closely. Will consider r epeating urinalysis, consider another course of IV hydration, monitor closely. 2. Anemia. Continue to monitor hemoglobin and hematocrit levels. 3. Hyperkalemia. The patient is status post Kayexalate. Continue patient on low-potassium diet. 4. Mineral bone disorder, monitor calcium and phosphorus levels. 5. Lower extremity edema, likely due to venous insufficiency. Continue to monitor. 6. Liver mass, etiology is unclear. The patient is status post needle biopsy. Follow up with patho logy. 7. Anxiety disorder. Continue to monitor. Follow up with psychiatry. 8. Diabetes. Continue current insulin regimen. 9. Hypothyroidism. Continue Synthroid. Dictated By: JACOB BROCK DO NR/NTS Conf#: [id number] DID#: [id number] CC: TAN MAIER MD;*[facility]*
[2018-08-13] MEDS: HYDROCODONE/APAP (5/325) TAB PO PRN ×2 (09:14→21:02)
[2018-08-13] MEDS: ENOXAPARIN 30 MG/0.3 ML SYG SC SCH (09:15)
[2018-08-13] MEDS ORDERED: REGADENOSON 0.4 MG/5 ML SYG ONE (11:27)
--- NOTE | 2018-08-13 11:44 | CONS ---
Assessment/Plan Assessment/Plan Hospital Course (Demo Recall) IMP: 1.Preop-neg trop .3 including this am. NL EF by echo 2.abnl ecg-ECG today with inferior ST elevation but with normal concaviity and Q's isolated to lead 3 No chest pain or sob/neg trop this am. ? pericarditits. NL EF by echo this admit 3.Uterine cancer 4.DM 5.HTN 6.HL Recc -Tele -serial ECG's as ECG now this am with inferior ST elevation but no chest pain or sob and has mutiple negative troponin's including this am -For lexiscan stress test today -Continue asa/plavix/toprol/statin - will continue to trend troponn's and check serial ecg's Consultation Date/Type/Reason Admit Date/Time Jul 29, 2018 at 06:16 Initial Consult Date 08/10/18 Type of Consult Cardiology Reason for Consultation preop Requesting Provider: SANDI MURDOCK NP Date/Time of Note DATE: 08/13/18 TIME: 11:36 Exam/Review of Systems Vital Signs Vitals Vital Signs Date Temp Pulse Resp B/P (MAP) Pulse Ox O2 O2 Flow FiO2 Time Delivery Rate 08/13/18 97.8 84 18 120/59 97 08:00 (79) 08/12/18 Room Air 19:57 Intake and Output 08/12/18 08/12/18 08/13/18 1515:00 23:00 07:00 IntakeIntake Total 100 ml 400 ml 59 ml OutputOutput Total 5 ml BalanceBalance 100 ml 395 ml 59 ml Exam Exam Review of Systems: CONSTITUTIONAL: No fevers, chills. PULMONARY: No sob CARDIOVASCULAR: No chest pain/palpitations GASTROINTESTINAL: No nausea/vomiting. GENITOURINARY: No hematuria/dysuria. MUSCULOSKELETAL: No myagias/arthalgias. PSYCHIATRIC: The patient denies depression. NEUROLOGIC: No weakness Constitutional: alert Psych: no complaints Head: normocephalic ENMT: mucosa pink and moist Neck: supple, jvd (9 cm water) Respiratory: diminished breath sounds Cardiovascular: regular rate and rhythm Gastrointestinal: soft, non-tender Musculoskeletal: muscle tone (normal) Extremities: edema (none) Neurological: other (No focal deficits) Labs Result Diagram: 08/13/18 0544 08/13/18 0544 Results 24hrs Laboratory Tests Test 08/12/18 12:15 08/12/18 13:14 08/12/18 16:54 08/12/18 18:14 Bedside Glucose 204 189 Troponin I < 0.012 < 0.012 Test 08/12/18 20:00 08/13/18 01:02 08/13/18 05:40 08/13/18 05:44 Bedside Glucose 208 153 B-Type Natriuretic 2780 H Peptide White Blood Count 13.3 H Red Blood Count 2.79 L Hemoglobin 7.9 L Hematocrit 24.5 L Mean Corpuscular 87.8 Volume Mean Corpuscular 28.3 L Hemoglobin Mean Corpuscular 32.2 Hemoglobin Concent Red Cell 15.4 H Distribution Width Platelet Count 763 H Mean Platelet Volume 9.3 Immature 0.500 H Granulocytes % Neutrophils % 75.5 Lymphocytes % 14.0 L Monocytes % 8.4 Eosinophils % 1.1 Basophils % 0.5 Nucleated Red Blood 0.0 Cells % Immature 0.070 H Granulocytes # Neutrophils # 10.1 H Lymphocytes # 1.9 Monocytes # 1.1 H Eosinophils # 0.2 Basophils # 0.1 Nucleated Red Blood 0.0 Cells # Sodium Level 137 Potassium Level 5.0 Chloride Level 107 Carbon Dioxide Level 20 L Anion Gap 10 Blood Urea Nitrogen 57 H Creatinine 1.33 H Est Glomerular 40 L Filtrat Rate mL/min Glucose Level 144 Calcium Level 8.9 Phosphorus Level 4.4 Magnesium Level 2.6 H Troponin I < 0.012 Test 08/13/18 08:18 Bedside Glucose 135 Medications Medications Current Medications IV Flush (NS 3 ml) 3 ml PER PROTOCOL IV Last administered on 08/05/18at 09:07; Admin Dose 3 ML; Start 07/29/18 at 06:30 Ondansetron HCl (Zofran Inj) 4 mg Q6H PRN IV NAUSEA/VOMITING Last administered on 08/11/18at 04:32; Admin Dose 4 MG; Start 07/29/18 at 06:30 Acetaminophen/ Hydrocodone Bitart ([place] (5/325)) 1 tab Q6H PRN PO .MOD PAIN 4- 6 Last administered on 08/13/18at 09:14; Admin Dose 1 TAB; Start 07/29/18 at 06:30 Pantoprazole (Protonix Tab) 40 mg DAILY@06 PO Last administered on 08/12/18 06:02; Admin Dose 40 MG; Start 07/29/18 at 06:30 Enoxaparin Sodium (Lovenox) 30 mg DAILY SC Last administered on 08/13/18 09:15; Admin Dose 30 MG; Start 07/29/18 at 09:00 Diagnostic Test (Pha) (Accu-Chek) 1 ea 02 XX Last administered on 08/13/18 01:04; Admin Dose 1 EA; Start 07/30/18 at 02:00 Acetaminophen (Tylenol Tab) 650 mg Q6H PRN PO .PAIN 1-3 OR TEMP Last administered on 08/12/18 16:11; Admin Dose 650 MG; Start 07/29/18 at 07:00 Eye Lubricant (Akwa Oint) 1 applic Q1H PRN BOTH EYES DRY EYES; Start 07/29/18 at 08:00 Aspirin (Halfprin) 81 mg DAILY PO Last administered on 08/12/18 08:54; Admin D ose 81 MG; Start 07/29/18 at 09:00 Atorvastatin Calcium (Lipitor) 20 mg QHS PO Last administered on 08/12/18 20:04; Admin Dose 20 MG; Start 07/29/18 at 21:00 Clopidogrel Bisulfate (plaVIX) 75 mg DAILY PO Last administered on 08/12/18 08:54; Admin Dose 75 MG; Start 07/29/18 at 09:00 Cyanocobalamin (Vitamin B12) 50 mcg DAILY PO Last administered on 08/12/18 08:55; Admin Dose 50 MCG; Start 07/29/18 at 09:00 Levothyroxine Sodium (Synthroid) 50 mcg BEFORE BREAKFAST PO Last administered on 08/12/18 06:02; Admin Dose 50 MCG; Start 07/29/18 at 07:00 Metoprolol Succinate (Toprol Xl) 25 mg BID PO Last administered on 08/12/18 08:54; Admin Dose 25 MG; Start 07/29/18 at 09:00 Polyethyl Glycol/ Propylene Glycol (Systane 0.3-0.4% Eye Drops) 1 drop Q4H PRN BOTH EYES DRY EYES; Start 07/29/18 at 08:00 Albuterol (Ventolin Hfa) 2 puff Q4H RESP THERAPY PRN INH WHEEZING; Start 07/29/18 at 09:00 Miscellaneous Information 1 ea NOTE XX ; Start 07/29/18 at 07:00 Glucose (Glutose) 15 gm Q15M PRN PO DECREASED GLUCOSE; Start 07/29/18 at 07:00 Glucose (Glutose) 22.5 gm Q15M PRN PO DECREASED GLUCOSE; Start 07/29/18 at 07:00 Dextrose (D50w Syringe) 25 ml Q15M PRN IV DECREASED GLUCOSE; Start 07/29/18 at 07:00 Dextrose (D50w Syringe) 50 ml Q15M PRN IV DECREASED GLUCOSE; Start 07/29/18 at 07:00 Glucagon (Glucagen) 1 mg Q15M PRN IM DECREASED GLUCOSE; Start 07/29/18 at 07:00 Glucose (Glutose) 15 gm Q15M PRN BUCCAL DECREASED GLUCOSE; Start 07/29/18 at 07:00 Alprazolam (Xanax) 0.25 mg Q8H PRN PO ANXIETY Last administered on 08/11/18at 11:14; Admin Dose 0.25 MG; Start 07/29/18 at 12:30 Polyethylene Glycol (Miralax) 17 gm DAILY PO Last administered on 08/12/18 08:54; Admin Dose 17 GM; Start 07/29/18 at 12:30 Docusate Sodium (Colace) 100 mg BID PO Last administered on 08/12/18 08:54; Admin Dose 100 MG; Start 07/31/18 at 21:00 Magnesium Hydroxide (Milk Of Mag) 30 ml Q12H PRN PO STOMACH UPSET/CRAMPING Last administered on 07/31/18at 21:28; Admin Dose 30 ML; Start 07/31/18 at 20:00 Al Hydrox/Mg Hydrox/Simethicone (Mag-Al Plus) 30 ml Q6H PRN PO GASTROINTESTINAL UPSET Last administered on 08/12/18at 10:42; Admin Dose 30 ML; Start 08/03/18 at 17:30 Insulin Aspart (Novolog Insulin Pen) (Adult SC Insulin - Moder... AC MEALS AND BEDTIME SC Last administered on 08/12/18 20:02; Admin Dose 1 UNIT; Start 02/14 at 17:30 Insulin Glargine (Lantus) 8 units DAILY@2000 SC Last administered on 08/12/18 20:01; Admin Dose 8 UNITS; Start 08/09/18 at 20:00 Insulin Aspart (Novolog Insulin Pen) 3 unit WITH MEALS SC Last administered on 08/12/18at 12:20; Admin Dose 3 UNIT; Start 08/09/18 at 18:00 Ferric Sodium Gluconate Complex 125 mg/Sodium Chloride 100 ml @ 100 mls/hr DAILY@1300 IVPB Last administered on 08/12/18at 12:19; Admin Dose 100 MLS/HR; Start 08/11/18 at 20:00; Stop 08/13/18 at 13:59 Zolpidem Tartrate (Ambien) 5 mg HS PRN PO INSOMNIA Last administered on 08/12/18at 21:47; Admin Dose 5 MG; Start 08/12/18 at 21:30 TAN LIRIANO Aug 13, 2018 11:44
[2018-08-13] MEDS: ASPIRIN (EC) 81 MG TAB PO SCH (12:59)
[2018-08-13] MEDS: CLOPIDOGREL 75 MG TAB PO SCH (12:59)
[2018-08-13] MEDS: CYANOCOBALAMIN 100 MCG TAB PO SCH (12:59)
[2018-08-13] MEDS: METOPROLOL (XL) 25 MG TAB PO SCH ×2 (12:59→20:38)
[2018-08-13] MEDS: DOCUSATE SODIUM 100 MG CAP PO SCH ×2 (13:00→20:39)
[2018-08-13] MEDS: POLYETHYLENE GLYCOL 17 GM PACKET PO SCH (13:06)
[2018-08-13] MEDS: SOD FERRIC GLUC COMPLX 125 MG in SOD CHLORIDE 0.9% 100 ML IVPB SCH (13:08)
--- NOTE | 2018-08-13 15:27 | PN ---
Date/Time of Note Date/Time of Note DATE: 08/13/18 TIME: 15:12 Assessment/Plan VTE Prophylaxis Risk score (from Ns)>0 risk: 7 SCD applied (from [facility] [place] No SCD contraindicated: other Pharmacological prophylaxis: LMWH Lines/Catheters IV [facility] Type [facility]from [facility] [place] Urinary Cath still in place: No Assessment/Plan Hospital Course 1. 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 - May benefit from a debulking surgery because of the large pelvic mass - Plan for surgical intervention once more stable 2. Bilateral lower extremity edema. - suspect multifactorial including underlying diastolic heart failure, and venous insufficiency. - Largely resolved. - diuresis as renal function tolerates 3. Peripheral artery disease. - vascular surgeon following - Continue aspirin plus Plavix. - Continue statins. 4. Diabetes mellitus. - Hemoglobin A1c 6.3. - Continue sliding scale insulin along with pre-meal insulin and basal. 5. Elevated CA-19-9. - MRI of the abdomen showing multiple parenchymal and capsular liver lesions. - S/P percutaneous biopsy on 08/09/2018 with pathology: Mass, right lobe of liver, CT-guided core needle biopsies with touch imprints: -- Metastatic malignant mesodermal mixed tumor (carcinosarcoma). 6. Constipation. - Continue bowel regimen. - GI following 7. Hypothyroidism. - Continue Synthroid. 8. Acute kidney injury. - knockout man following 9. Normocytic anemia. - Monitor H&H closely. - Continue iron supplements. Disposition and plan: At present patient is not a candidate for chemotherapy. Tentative plan for pelvic surgery for removing uterine mass once more medically stable. Medical optimization in progress. Plan for transition to retirement facility once more stable. Was reported patient's son Rk is seeking for aggressive therapy regarding uterine mass. Patient is status post Lexiscan stress test on August 13, 2018 showing skin to graphic abnormalities consistent with a small partially reversible perfusion def ect in the distal anterior wall. Follow-up with materials technician. Further recommendations pending clinical course. Discussed POC with Dr. Allen Result Diagram: 08/13/18 0544 08/13/18 0544 Results 24hrs Laboratory Tests Test 08/12/18 16:54 08/12/18 18:14 08/12/18 20:00 08/13/18 01:02 Bedside Glucose 189 208 153 Troponin I < 0.012 Test 08/13/18 05:40 08/13/18 05:44 08/13/18 08:18 08/13/18 12:45 B-Type Natriuretic 2780 H Peptide White Blood Count 13.3 H Red Blood Count 2.79 L Hemoglobin 7.9 L Hematocrit 24.5 L Mean Corpuscular 87.8 Volume Mean Corpuscular 28.3 L Hemoglobin Mean Corpuscular 32.2 Hemoglobin Concent Red Cell 15.4 H Distribution Width Platelet Count 763 H Mean Platelet Volume 9.3 Immature 0.500 H Granulocytes % Neutrophils % 75.5 Lymphocytes % 14.0 L Monocytes % 8.4 Eosinophils % 1.1 Basophils % 0.5 Nucleated Red Blood 0.0 Cells % Immature 0.070 H Granulocytes # Neutrophils # 10.1 H Lymphocytes # 1.9 Monocytes # 1.1 H Eosinophils # 0.2 Basophils # 0.1 Nucleated Red Blood 0.0 Cells # Sodium Level 137 Potassium Level 5.0 Chloride Level 107 Carbon Dioxide Level 20 L Anion Gap 10 Blood Urea Nitrogen 57 H Creatinine 1.33 H Est Glomerular 40 L Filtrat Rate mL/min Glucose Level 144 Calcium Level 8.9 Phosphorus Level 4.4 Magnesium Level 2.6 H Troponin I < 0.012 Bedside Glucose 135 136 Test 08/13/18 13:40 Troponin I < 0.012 Subjective 24 Hr Interval Summary Free Text/Dictation patient reports difficulty with urination and some bladder discomfort Exam/Review of Systems Exam Vitals Vital Signs Date Temp Pulse Resp B/P (MAP) Pulse Ox O2 O2 Flow FiO2 Time Delivery Rate 08/13/18 97.9 81 18 105/52 100 14:03 (69) 08/12/18 Room Air 19:57 Intake and Output 08/12/18 08/12/18 08/13/18 1515:00 23:00 07:00 IntakeIntake Total 100 ml 400 ml 59 ml OutputOutput Total 5 ml BalanceBalance 100 ml 395 ml 59 ml Constitutional: alert Psych: anxiety Head: normocephalic Neck: supple, non-tender Respiratory: clear to auscultation Cardiovascular: other (regular rate ) Gastrointestinal: soft, non-tender Musculoskeletal: swelling (minimal ble ) Neurological: nl mental status, nl speech Skin: nl turgor Results Results 24hrs Laboratory Tests Test 08/12/18 16:54 08/12/18 18:14 08/12/18 20:00 08/13/18 01:02 Bedside Glucose 189 208 153 Troponin I < 0.012 Test 08/13/18 05:40 08/13/18 05:44 08/13/18 08:18 08/13/18 12:45 B-Type Natriuretic 2780 H Peptide White Blood Count 13.3 H Red Blood Count 2.79 L Hemoglobin 7.9 L Hematocrit 24.5 L Mean Corpuscular 87.8 Volume Mean Corpuscular 28.3 L Hemoglobin Mean Corpuscular 32.2 Hemoglobin Concent Red Cell 15.4 H Distribution Width Platelet Count 763 H Mean Platelet Volume 9.3 Immature 0.500 H Granulocytes % Neutrophils % 75.5 Lymphocytes % 14.0 L Monocytes % 8.4 Eosinophils % 1.1 Basophils % 0.5 Nucleated Red Blood 0.0 Cells % Immature 0.070 H Granulocytes # Neutrophils # 10.1 H Lymphocytes # 1.9 Monocytes # 1.1 H Eosinophils # 0.2 Basophils # 0.1 Nucleated Red Blood 0.0 Cells # Sodium Level 137 Potassium Level 5.0 Chloride Level 107 Carbon Dioxide Level 20 L Anion Gap 10 Blood Urea Nitrogen 57 H Creatinine 1.33 H Est Glomerular 40 L Filtrat Rate mL/min Glucose Level 144 Calcium Level 8.9 Phosphorus Level 4.4 Magnesium Level 2.6 H Troponin I < 0.012 Bedside Glucose 135 136 Test 08/13/18 13:40 Troponin I < 0.012 Medications Medication Current Medications IV Flush (NS 3 ml) 3 ml PER PROTOCOL IV Last administered on 08/05/18at 09:07; Admin Dose 3 ML; Start 07/29/18 at 06:30 Ondansetron HCl (Zofran Inj) 4 mg Q6H PRN IV NAUSEA/VOMITING Last administered on 08/11/18at 04:32; Admin Dose 4 MG; Start 07/29/18 at 06:30 Acetaminophen/ Hydrocodone Bitart ([place] (5/325)) 1 tab Q6H PRN PO .MOD PAIN 4- 6 Last administered on 08/13/18at 09:14; Admin Dose 1 TAB; Start 07/29/18 at 06:30 Pantoprazole (Protonix Tab) 40 mg DAILY@06 PO Last administered on 08/12/18 06:02; Admin Dose 40 MG; Start 07/29/18 at 06:30 Enoxaparin Sodium (Lovenox) 30 mg DAILY SC Last administered on 08/13/18 09:15; Admin Dose 30 MG; Start 07/29/18 at 09:00 Diagnostic Test (Pha) (Accu-Chek) 1 ea 02 XX Last administered on 08/13/18 01:04; Admin Dose 1 EA; Start 07/30/18 at 02:00 Acetaminophen (Tylenol Tab) 650 mg Q6H PRN PO .PAIN 1-3 OR TEMP Last administered on 08/12/18 16:11; Admin Dose 650 MG; Start 07/29/18 at 07:00 Eye Lubricant (Akwa Oint) 1 applic Q1H PRN BOTH EYES DRY EYES; Start 07/29/18 at 08:00 Aspirin (Halfprin) 81 mg DAILY PO Last administered on 08/13/18 12:59; Admin Dose 81 MG; Start 07/29/18 at 09:00 Atorvastatin Calcium (Lipitor) 20 mg QHS PO Last administered on 08/12/18 20:04; Admin Dose 20 MG; Start 07/29/18 at 21:00 Clopidogrel Bisulfate (plaVIX) 75 mg DAILY PO Last administered on 08/13/18 12:59; Admin Dose 75 MG; Start 07/29/18 at 09:00 Cyanocobalamin (Vitamin B12) 50 mcg DAILY PO Last administered on 08/13/18 12:59; Admin Dose 50 MCG; Start 07/29/18 at 09:00 Levothyroxine Sodium (Synthroid) 50 mcg BEFORE BREAKFAST PO Last administered on 08/12/18 06:02; Admin Dose 50 MCG; Start 07/29/18 at 07:00 Metoprolol Succinate (Toprol Xl) 25 mg BID PO Last administered on 08/13/18 12:59; Admin Dose 25 MG; Start 07/29/18 at 09:00 Polyethyl Glycol/ Propylene Glycol (Systane 0.3-0.4% Eye Drops) 1 drop Q4H PRN BOTH EYES DRY EYES; Start 07/29/18 at 08:00 Albuterol (Ventolin Hfa) 2 puff Q4H RESP THERAPY PRN INH WHEEZING; Start 07/29/18 at 09:00 Miscellaneous Information 1 ea NOTE XX ; Start 07/29/18 at 07:00 Glucose (Glutose) 15 gm Q15M PRN PO DECREASED GLUCOSE; Start 07/29/18 at 07:00 Glucose (Glutose) 22.5 gm Q15M PRN PO DECREASED GLUCOSE; Start 07/29/18 at 07:00 Dextrose (D50w Syringe) 25 ml Q15M PRN IV DECREASED GLUCOSE; Start 07/29/18 at 07:00 Dextrose (D50w Syringe) 50 ml Q15M PRN IV DECREASED GLUCOSE; Start 07/29/18 at 07:00 Glucagon (Glucagen) 1 mg Q15M PRN IM DECREASED GLUCOSE; Start 07/29/18 at 07:00 Glucose (Glutose) 15 gm Q15M PRN BUCCAL DECREASED GLUCOSE; Start 07/29/18 at 07:00 Alprazolam (Xanax) 0.25 mg Q8H PRN PO ANXIETY Last administered on 08/11/18at 11:14; Admin Dose 0.25 MG; Start 07/29/18 at 12:30 Polyethylene Glycol (Miralax) 17 gm DAILY PO Last administered on 08/12/18at 08: 54; Admin Dose 17 GM; Start 07/29/18 at 12:30 Docusate Sodium (Colace) 100 mg BID PO Last administered on 08/13/18at 13:00; Admin Dose 100 MG; Start 07/31/18 at 21:00 Magnesium Hydroxide (Milk Of Mag) 30 ml Q12H PRN PO STOMACH UPSET/CRAMPING Last administered on 07/31/18at 21:28; Admin Dose 30 ML; Start 07/31/18 at 20:00 Al Hydrox/Mg Hydrox/Simethicone (Mag-Al Plus) 30 ml Q6H PRN PO GASTROINTESTINAL UPSET Last administered on 08/12/18at 10:42; Admin Dose 30 ML; Start 08/03/18 at 17:30 Insulin Aspart (Novolog Insulin Pen) (Adult SC Insulin - Moder... AC MEALS AND BEDTIME SC Last administered on 08/12/18at 20:02; Admin Dose 1 UNIT; Start 08/08/18 at 17:30 Insulin Glargine (Lantus) 8 units DAILY@2000 SC Last administered on 08/12/18at 20:01; Admin Dose 8 UNITS; Start 08/09/18 at 20:00 Insulin Aspart (Novolog Insulin Pen) 3 unit WITH MEALS SC Last administered on 08/13/18 13:06; Admin Dose 3 UNIT; Start 08/09/18 at 18:00 Zolpidem Tartrate (Ambien) 5 mg HS PRN PO INSOMNIA Last administered on 08/12/18at 21:47; Admin Dose 5 MG; Start 08/12/18 at 21:30 FIDE MAGUIRE NP Aug 13, 2018 15:22
--- NOTE | 2018-08-13 16:10 | CARRPT ---
DATE OF PROCEDURE: 08/13/2018 REASON FOR STRESS TESTING: Preoperative evaluation. BASELINE ELECTROCARDIOGRAM AND VITAL SIGNS: Pulse 88, blood pressure 109/53. [facility] revealed normal sinus rhythm, rate of 88, normal axis, and isolated escalation in lead 3 with a Q-wave in the lead and a tiny Q in AVF, which were not there previously. ST depressions in 1L, V4 , V6, and V5. PROCEDURE: The patient underwent standard Lexiscan infusion protocol over 10 seconds followed by the tracer. The patient's test was stopped due to completion of protocol. Maximum achieved blood press ure during the test 101/51. Maximum achieved heart rate during the test 88. ELECTROCARDIOGRAM FINDINGS: The patient had a persistent borderline decrease in her ST elevations in the isolated to lead of [address] depressions in 1L and V4 through V6. The patient had no PV Cs. SYMPTOMS: The patient had complaints of mild shortness of breath. No chest pain during stress test. She resolved in recovery. IMPRESSION: 1. No new Lexiscan-induced ST or T-wave changes from baseline abnormalities of the diagnostic cardia c ischemia. 2. Complaints of shortness of breath during stress testing. No chest pain. 3. No documented premature ventricular contractions during test. 4. Report of nuclear images to follow in separate dictation. Dictated By: TAN TERRY/EMA Conf#: [id number] DID#: [id number] CC: TAN MAIER MD;*EndCC*
--- NOTE | 2018-08-13 18:47 | QN ---
Documentation Comment Pt is not able to converse appropriately now and is not cooperative. Chart reviewed. Attempts to medically optimized her for surgery with Dr. Nevarez are being made. Pathology does show carcinosarcoma consistent with uterine origin. I will f/u but No medical oncology treatment is favored at this time. I would decide after surgery is done and she is debulked. TUAN BARRON MD Aug 13, 2018 18:47
[2018-08-13] MEDS: ZOLPIDEM 5 MG TAB PO PRN (20:38)
[2018-08-13] MEDS: ATORVASTATIN 20 MG TAB PO SCH (20:39)
[2018-08-13] MEDS: INSULIN GLARGINE [LANTus] (100 UNITS/ML) SYG SC SCH (21:09)
[2018-08-13] MEDS: ALPRAZOLAM 0.25 MG TAB PO PRN (23:04)
[2018-08-14] VITALS (12 sets, daily range): BP systolic 103–125; BP diastolic 50–68; PULSE 61–85; RESP 18–22
[2018-08-14] MEDS: ACCU-CHEK XX SCH (02:00)
[2018-08-14] MEDS: HYDROCODONE/APAP (5/325) TAB PO PRN ×2 (02:49→17:59)
[2018-08-14] MEDS: PANTOPRAZOLE (EC) 40 MG TAB PO SCH (05:47)
[2018-08-14] MEDS: LEVOTHYROXINE 50 MCG TAB PO SCH (05:49)
[2018-08-14] MEDS: INSULIN ASPART [NOVOLOG] 3 ML PEN SC SCH ×7 (07:00→21:00)
[2018-08-14] MEDS: ENOXAPARIN 30 MG/0.3 ML SYG SC SCH (09:00)
[2018-08-14] MEDS: ASPIRIN (EC) 81 MG TAB PO SCH (09:15)
[2018-08-14] MEDS: CYANOCOBALAMIN 100 MCG TAB PO SCH (09:15)
[2018-08-14] MEDS: DOCUSATE SODIUM 100 MG CAP PO SCH ×2 (09:15→21:00)
[2018-08-14] MEDS: CLOPIDOGREL 75 MG TAB PO SCH (09:15)
[2018-08-14] MEDS: POLYETHYLENE GLYCOL 17 GM PACKET PO SCH (09:15)
[2018-08-14] MEDS: METOPROLOL (XL) 25 MG TAB PO SCH ×2 (09:21→20:48)
[2018-08-14] MEDS: AL HYDROX/MG HYDROX/SIMETH 30 ML CUP PO PRN (09:31)
--- NOTE | 2018-08-14 10:10 | CONS ---
Consult Date/Type/Reason Admit Date/Time Jul 29, 2018 at 06:16 Initial Consult Date 08/10/18 Requesting Provider: SANDI MURDOCK NP Date/Time of Note DATE: 08/14/18 TIME: 10:07 Subjective NO acute events - stress test with small rev defect - will defer to Dr. Guzmán if LHC is warranted -med rx for now ROS: No fever, no chills, no nausea, no vomiting, no diarrhea/constipation No recent weight changes No chest pain, no PND, no orthopnea No dizziness, blurred vision No thirst, no heat or cold intolerance Objective Vitals Vital Signs Date Temp Pulse Resp B/P (MAP) Pulse Ox O2 O2 Flow FiO2 Time Delivery Rate 08/14/18 72 08:18 08/14/18 98.2 18 103/51 92 Room Air 08:06 (68) 08/14/18 2.0 07:34 Intake and Output 08/13/18 08/13/18 08/14/18 1515:00 23:00 07:00 IntakeIntake Total 200 ml 1400 ml 120 ml OutputOutput Total 1 ml BalanceBalance 200 ml 1400 ml 119 ml Exam General: WN/WD/NAD, AOx 3 - poor balance with observed ambultion HEENT: Unicetric/atraumatic/EOMI (follow commands) NECK: JVD elevated, no thyromegaly Lymph: no lymphadenopathy HEART: regular with no S3, II/ systolic murmur at apex LUNGS: Coarse sounds ABD: soft, NT, ND, +BS : Intact Neuro: h/o CVA SKIN: chronic changes EXT: trace edema Results/Medications Result Diagram: 08/14/1852308/14/18523 Results 24 hrs Laboratory Tests Test 08/13/18 12:45 08/13/18 13:40 08/13/18 18:43 08/13/18 20:34 Bedside Glucose 136 199 Troponin I < 0.012 < 0.012 Test 08/14/18 02:05 08/14/18 05:24 08/14/18 07:55 Bedside Glucose 86 78 White Blood Count 14.2 H Red Blood Count 2.43 L Hemoglobin 7.0 L Hematocrit 21.6 L Mean Corpuscular 88.9 Volume Mean Corpuscular 28.8 L Hemoglobin Mean Corpuscular 32.4 Hemoglobin Concent Red Cell 15.7 H Distribution Width Platelet Count 692 H Mean Platelet Volume 9.4 Immature 0.500 H Granulocytes % Neutrophils % 65.0 Lymphocytes % 20.1 Monocytes % 12.6 H Eosinophils % 1.4 Basophils % 0.4 Nucleated Red Blood 0.0 Cells % Immature 0.070 H Granulocytes # Neutrophils # 9.2 H Lymphocytes # 2.9 Monocytes # 1.8 H Eosinophils # 0.2 Basophils # 0.1 Nucleated Red Blood 0.0 Cells # Sodium Level 135 Potassium Level 4.7 Chloride Level 107 Carbon Dioxide Level 22 Anion Gap 6 Blood Urea Nitrogen 55 H Creatinine 1.42 H Est Glomerular 37 L Filtrat Rate mL/min Glucose Level 75 # Calcium Level 9.0 Phosphorus Level 4.7 Magnesium Level 2.8 H Home Meds Active Scripts Magnesium Oxide* (Mag-Oxide*) 400 Mg Tablet, 400 MG PO BID for 3 Days, #10 TAB Prov:FERNANDO YANCEY MD 07/08/18 Lactobacillus Rhamnosus GG (Culturelle) 1 Each Capsule, 1 CAP PO BID for 14 Days, #30 CAP Prov:FERNANDO YANCEY MD 07/08/18 Acetaminophen* (Tylenol*) 325 Mg Tablet, 650 MG PO Q6H PRN for .PAIN 1-3 OR TEMP for 10 Days, #10 TAB Prov:FERNANDO YANCEY MD 07/08/18 Lisinopril* (Lisinopril*) 5 Mg Tablet, 2.5 MG PO DAILY for 15 Days, #15 TAB Prov:FERNANDO YANCEY MD 07/08/18 Sulfamethoxazole/Trimethoprim (Sulfamethoxazole-Tmp Ds Tablet) 1 Each Tablet, 1 TAB PO BID for 5 Days, #10 TAB Prov:FERNANDO YANCEY MD 07/08/18 Reported Medications Sodium Bicarbonate* (Sodium Bicarbonate*) 650 Mg Tablet, 650 MG PO TID, TAB 07/05/18 Propylene Glycol-Peg 400 (Systane 0.3-0.4% Eye Drops) 0.3-0.4 % - 30 Ml Drops, 1 DROP BOTH EYES Q4H PRN for DRY EYES, #1 BOTTLE 07/05/18 Pantoprazole* (Protonix*) 40 Mg Tablet.dr, 40 MG PO QAM, TAB 07/05/18 Ondansetron Hcl* (Zofran*) 8 Mg Tablet, 8 MG PO Q6H PRN for NAUSEA AND OR VOMITING, TAB 07/05/18 Metoprolol Succinate* (Toprol XL*) 25 Mg Tab.sr.24h, 25 MG PO BID, #30 TAB 07/05/18 Metformin* (Glucophage*) 500 Mg Tab, 500 MG PO WITH BREAKFAST, #30 TAB 07/05/18 Levothyroxine Sodium* (Synthroid*) 50 Mcg Tablet, 50 MCG PO BEFORE BREAKFAST, #30 TAB 07/05/18 Hydrocodone/Acetaminophen ([place] 5-325 Tablet) 1 Each Tablet, 1 EACH PO Q6 PRN for PAIN, TAB 07/05/18 [place]-3 Fatty Acids/Fish Oil (Fish Oil 1,000 mg Capsule) 1 Each Capsule, 1 EACH PO DAILY, CAP 07/05/18 Cyanocobalamin* (Vitamin B-12*) 50 Mcg Tablet, 50 MCG PO DAILY, TAB 07/05/18 Clopidogrel Bisulfate (Clopidogrel) 75 Mg Tablet, 75 MG PO DAILY, #30 TAB 07/05/18 Atorvastatin Calcium* (Atorvastatin Calcium*) 20 Mg Tablet, 20 MG PO QHS, #30 TAB 07/05/18 Aspirin* (Aspirin* EC) 81 Mg Tablet.dr, 81 MG PO DAILY, TAB 07/05/18 Artificial Tears* (Akwa Oint*) 3.5 Gm Oint, 1 APPLIC BOTH EYES Q1H PRN for DRY EYES, #1 TUB 07/05/18 Albuterol Sulfate (Proair Respiclick) 90 Mcg Aer.pow.ba, 2 PUFFS INHALATION Q4 PRN for WHEEZING, BOTTLE 07/05/18 Medications Current Medications IV Flush (NS 3 ml) 3 ml PER PROTOCOL IV Last administered on 08/05/18at 09:07; Admin Dose 3 ML; Start 07/29/18 at 06:30 Ondansetron HCl (Zofran Inj) 4 mg Q6H PRN IV NAUSEA/VOMITING Last administered on 08/11/18at 04:32; Admin Dose 4 MG; Start 07/29/18 at 06:30 Acetaminophen/ Hydrocodone Bitart ([place] (5/325)) 1 tab Q6H PRN PO .MOD PAIN 4- 6 Last administered on 08/14/18at 02:49; Admin Dose 1 TAB; Start 07/29/18 at 06:30 Pantoprazole (Protonix Tab) 40 mg DAILY@06 PO Last administered on 08/14/18 05:47; Admin Dose 40 MG; Start 07/29/18 at 06:30 Enoxaparin Sodium (Lovenox) 30 mg DAILY SC Last administered on 08/13/18 09:15; Admin Dose 30 MG; Start 07/29/18 at 09:00 Diagnostic Test (Pha) (Accu-Chek) 1 ea 02 XX Last administered on 08/13/18 01:04; Admin Dose 1 EA; Start 07/30/18 at 02:00 Acetaminophen (Tylenol Tab) 650 mg Q6H PRN PO .PAIN 1-3 OR TEMP Last administered on 08/12/18 16:11; Admin Dose 650 MG; Start 07/29/18 at 07:00 Eye Lubricant (Akwa Oint) 1 applic Q1H PRN BOTH EYES DRY EYES; Start 07/29/18 at 08:00 Aspirin (Halfprin) 81 mg DAILY PO Last administered on 08/14/18 09:15; Admin Dose 81 MG; Start 07/29/18 at 09:00 Atorvastatin Calcium (Lipitor) 20 mg QHS PO Last administered on 08/13/18 20:39; Admin Dose 20 MG; Start 07/29/18 at 21:00 Clopidogrel Bisulfate (plaVIX) 75 mg DAILY PO Last administered on 08/14/18 09:15; Admin Dose 75 MG; Start 07/29/18 at 09:00 Cyanocobalamin (Vitamin B12) 50 mcg DAILY PO Last administered on 08/14/18 09:15; Admin Dose 50 MCG; Start 07/29/18 at 09:00 Levothyroxine Sodium (Synthroid) 50 mcg BEFORE BREAKFAST PO Last administered on 08/14/18 05:49; Admin Dose 50 MCG; Start 07/29/18 at 07:00 Metoprolol Succinate (Toprol Xl) 25 mg BID PO Last administered on 08/14/18 09:21; Admin Dose 25 MG; Start 07/29/18 at 09:00 Polyethyl Glycol/ Propylene Glycol (Systane 0.3-0.4% Eye Drops) 1 drop Q4H PRN BOTH EYES DRY EYES; Start 07/29/18 at 08:00 Albuterol (Ventolin Hfa) 2 puff Q4H RESP THERAPY PRN INH WHEEZING; Start 07/29/18 at 09:00 Miscellaneous Information 1 ea NOTE XX ; Start 07/29/18 at 07:00 Glucose (Glutose) 15 gm Q15M PRN PO DECREASED GLUCOSE; Start 07/29/18 at 07:00 Glucose (Glutose) 22.5 gm Q15M PRN PO DECREASED GLUCOSE; Start 07/29/18 at 07:00 Dextrose (D50w Syringe) 25 ml Q15M PRN IV DECREASED GLUCOSE; Start 07/29/18 at 0 7:00 Dextrose (D50w Syringe) 50 ml Q15M PRN IV DECREASED GLUCOSE; Start 07/29/18 at 07:00 Glucagon (Glucagen) 1 mg Q15M PRN IM DECREASED GLUCOSE; Start 07/29/18 at 07:00 Glucose (Glutose) 15 gm Q15M PRN BUCCAL DECREASED GLUCOSE; Start 07/29/18 at 07:00 Alprazolam (Xanax) 0.25 mg Q8H PRN PO ANXIETY Last administered on 08/13/18at 23:04; Admin Dose 0.25 MG; Start 07/29/18 at 12:30 Polyethylene Glycol (Miralax) 17 gm DAILY PO Last administered on 08/14/18at 09:15; Admin Dose 17 GM; Start 07/29/18 at 12:30 Docusate Sodium (Colace) 100 mg BID PO Last administered on 08/14/18at 09:15; Admin Dose 100 MG; Start 07/31/18 at 21:00 Magnesium Hydroxide (Milk Of Mag) 30 ml Q12H PRN PO STOMACH UPSET/CRAMPING Last administered on 07/31/18at 21:28; Admin Dose 30 ML; Start 07/31/18 at 20:00 Al Hydrox/Mg Hydrox/Simethicone (Mag-Al Plus) 30 ml Q6H PRN PO GASTROINTESTINAL UPSET Last administered on 08/14/18at 09:31; Admin Dose 30 ML; Start 08/03/18 at 17:30 Insulin Aspart (Novolog Insulin Pen) (Adult SC Insulin - Moder... AC MEALS AND BEDTIME SC Last administered on 08/13/18at 20:47; Admin Dose 1 UNIT; Start 08/08/18 at 17:30 Insulin Glargine (Lantus) 8 units DAILY@2000 SC Last administered on 08/13/18at 21:09; Admin Dose 8 UNITS; Start 08/09/18 at 20:00 Insulin Aspart (Novolog Insulin Pen) 3 unit WITH MEALS SC Last administered on 08/14/18at 09:28; Admin Dose 3 UNIT; Start 08/09/18 at 18:00 Zolpidem Tartrate (Ambien) 5 mg HS PRN PO INSOMNIA Last administered on 08/13/18at 20:38; Admin Dose 5 MG; Start 08/12/18 at 21:30 Assessment/Plan Hospital Course (Demo Recall) 1.Preop-neg trop .3 including this am. NL EF by echo - stres test with small rev defect - will defer to Dr. guzmán if LHC is warranted - med Rx for now 2.abnl ecg-ECG today with inferior ST elevation but with normal concaviity and Q's isolated to lead 3 No chest pain or sob/neg trop this am. ? pericarditits. NL EF by echo this admit - no CP nw - currently, no ectopy on tele 3.Uterine cancer - oncology follows 4.DM - on mes, keep euglycemic 5.HTN - well controlled, will monitor clinically 6.TUAN WOODRUFF MD Aug 14, 2018 10:10
--- NOTE | 2018-08-14 11:45 | PN ---
Date/Time of Note Date/Time of Note DATE: 08/14/18 TIME: 11:28 Assessment/Plan VTE Prophylaxis Risk score (from Ns)>0 risk: 8 SCD applied (from Ns): No SCD contraindicated: other Pharmacological prophylaxis: LMWH Lines/Catheters IV C[facility]ter Type (from [facility]): [facility] Urinary Cath still in place: No Assessment/Plan Hospital Course 1. 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 - May benefit from a debulking surgery because of the large pelvic mass - Plan for surgical intervention once more stable 2. Bilateral lower extremity edema. - suspect multifactorial including underlying diastolic heart failure, and venous insufficiency. - Largely resolved. - diuresis as renal function tolerates 3. Peripheral artery disease. - vascular surgeon following - Continue aspirin plus Plavix. - Continue statins. 4. Diabetes mellitus. - Hemoglobin A1c 6.3. - Continue sliding scale insulin along with pre-meal insulin and basal. 5. Elevated CA-19-9. - MRI of the abdomen showing multiple parenchymal and capsular liver lesions. - S/P percutaneous biopsy on 08/09/2018 with pathology: Mass, right lobe of liver, CT-guided core needle biopsies with touch imprints: -- Metastatic malignant mesodermal mixed tumor (carcinosarcoma). 6. Constipation. - Continue bowel regimen. - GI following 7. Hypothyroidism. - Continue Synthroid. 8. Acute kidney injury. - patient account specialist following 9. Normocytic anemia. - Monitor H&H closely. - Continue iron supplements. 10. s/p Stress test 6..19 with small partially reversible perfusion defect in the distal anterior wall - f/u pallet sorter if need for heart cath 11. Dyspnea - f/u CXR - breathing tx added Disposition and plan: At present patient is not a candidate for chemotherapy. Tentative plan for pelvic surgery for removing uterine mass once more medically stable. Medical optimization in progress. Plan for transition to halfway facility once more stable. Was reported patient's son Rk is seeking for aggressive therapy regarding uterine mass. Patient is status post Lexiscan stress test on August 13, 2018 showing skin to graphic abnormalities consistent with a small partially reversible perfusion defect in the distal anterior wall. Decision for heart cath per surgeon f/u CXR for worse breathing. breathing tx added. Will follow up Discussed POC with Dr. Allen Result Diagram: 08/14/18 0524 08/14/18 0524 Results 24hrs Laboratory Tests Test 08/13/18 12:45 08/13/18 13:40 08/13/18 18:43 08/13/18 20:34 Bedside Glucose 136 199 Troponin I < 0.012 < 0.012 Test 08/14/18 02:05 08/14/18 05:24 08/14/18 07:55 Bedside Glucose 86 78 White Blood Count 14.2 H Red Blood Count 2.43 L Hemoglobin 7.0 L Hematocrit 21.6 L Mean Corpuscular 88.9 Volume Mean Corpuscular 28.8 L Hemoglobin Mean Corpuscular 32.4 Hemoglobin Concent Red Cell 15.7 H Distribution Width Platelet Count 692 H Mean Platelet Volume 9.4 Immature 0.500 H Granulocytes % Neutrophils % 65.0 Lymphocytes % 20.1 Monocytes % 12.6 H Eosinophils % 1.4 Basophils % 0.4 Nucleated Red Blood 0.0 Cells % Immature 0.070 H Granulocytes # Neutrophils # 9.2 H Lymphocytes # 2.9 Monocytes # 1.8 H Eosinophils # 0.2 Basophils # 0.1 Nucleated Red Blood 0.0 Cells # Sodium Level 135 Potassium Level 4.7 Chloride Level 107 Carbon Dioxide Level 22 Anion Gap 6 Blood Urea Nitrogen 55 H Creatinine 1.42 H Est Glomerular 37 L Filtrat Rate mL/min Glucose Level 75 # Calcium Level 9.0 Phosphorus Level 4.7 Magnesium Level 2.8 H Subjective 24 Hr Interval Summary Free Text/Dictation reports increased shortness of breath Exam/Review of Systems Exam Vitals Vital Signs Date Temp Pulse Resp B/P (MAP) Pulse Ox O2 O2 Flow FiO2 Time Delivery Rate 08/14/18 97.8 73 20 125/58 94 Room Air 11:05 (80) 08/14/18 2.0 07:34 Intake and Output 08/13/18 08/13/18 08/14/18 1515:00 23:00 07:00 IntakeIntake Total 200 ml 2020 ml 120 ml OutputOutput Total 1 ml BalanceBalance 200 ml 2020 ml 119 ml Constitutional: alert Psych: anxiety Head: normocephalic Eyes: nl conjunctiva Neck: supple, non-tender Respiratory: diminished breath sounds (more on right lower lung lobes) Gastrointestinal: soft, non-tender Musculoskeletal: swelling (BLE ) Neurological: nl speech Results Results 24hrs Laboratory Tests Test 08/13/18 12:45 08/13/18 13:40 08/13/18 18:43 08/13/18 20:34 Bedside Glucose 136 199 Troponin I < 0.012 < 0.012 Test 08/14/18 02:05 08/14/18 05:24 08/14/18 07:55 Bedside Glucose 86 78 White Blood Count 14.2 H Red Blood Count 2.43 L Hemoglobin 7.0 L Hematocrit 21.6 L Mean Corpuscular 88.9 Volume Mean Corpuscular 28.8 L Hemoglobin Mean Corpuscular 32.4 Hemoglobin Concent Red Cell 15.7 H Distribution Width Platelet Count 692 H Mean Platelet Volume 9.4 Immature 0.500 H Granulocytes % Neutrophils % 65.0 Lymphocytes % 20.1 Monocytes % 12.6 H Eosinophils % 1.4 Basophils % 0.4 Nucleated Red Blood 0.0 Cells % Immature 0.070 H Granulocytes # Neutrophils # 9.2 H Lymphocytes # 2.9 Monocytes # 1.8 H Eosinophils # 0.2 Basophils # 0.1 Nucleated Red Blood 0.0 Cells # Sodium Level 135 Potassium Level 4.7 Chloride Level 107 Carbon Dioxide Level 22 Anion Gap 6 Blood Urea Nitrogen 55 H Creatinine 1.42 H Est Glomerular 37 L Filtrat Rate mL/min Glucose Level 75 # Calcium Level 9.0 Phosphorus Level 4.7 Magnesium Level 2.8 H Medications Medication Current Medications IV Flush (NS 3 ml) 3 ml PER PROTOCOL IV Last administered on 08/05/18at 09:07; Admin Dose 3 ML; Start 07/29/18 at 06:30 Ondansetron HCl (Zofran Inj) 4 mg Q6H PRN IV NAUSEA/VOMITING Last administered on 08/11/18at 04:32; Admin Dose 4 MG; Start 07/29/18 at 06:30 Acetaminophen/ Hydrocodone Bitart ([place] (5/325)) 1 tab Q6H PRN PO .MOD PAIN 4- 6 Last administered on 08/14/18at 02:49; Admin Dose 1 TAB; Start 07/29/18 at 06:30 Pantoprazole (Protonix Tab) 40 mg DAILY@06 PO Last administered on 08/14/18at 05:47; Admin Dose 40 MG; Start 07/29/18 at 06:30 Enoxaparin Sodium (Lovenox) 30 mg DAILY SC Last administered on 08/13/18 09:15; Admin Dose 30 MG; Start 07/29/18 at 09:00 Diagnostic Test (Pha) (Accu-Chek) 1 ea 02 XX Last administered on 08/13/18 01:04; Admin Dose 1 EA; Start 07/30/18 at 02:00 Acetaminophen (Tylenol Tab) 650 mg Q6H PRN PO .PAIN 1-3 OR TEMP Last administered on 08/12/18 16:11; Admin Dose 650 MG; Start 07/29/18 at 07:00 Eye Lubricant ([place] Oint) 1 applic Q1H PRN BOTH EYES DRY EYES; Start 07/29/18 at 08:00 Aspirin (Halfprin) 81 mg DAILY PO Last administered on 08/14/18 09:15; Admin Dose 81 MG; Start 07/29/18 at 09:00 Atorvastatin Calcium (Lipitor) 20 mg QHS PO Last administered on 08/13/18 20:39; Admin Dose 20 MG; Start 07/29/18 at 21:00 Clopidogrel Bisulfate (plaVIX) 75 mg DAILY PO Last administered on 08/14/18 09:15; Admin Dose 75 MG; Start 07/29/18 at 09:00 Cyanocobalamin (Vitamin B12) 50 mcg DAILY PO Last administered on 08/14/18 09:15; Admin Dose 50 MCG; Start 07/29/18 at 09:00 Levothyroxine Sodium (Synthroid) 50 mcg BEFORE BREAKFAST PO Last administered on 08/14/18 05:49; Admin Dose 50 MCG; Start 07/29/18 at 07:00 Metoprolol Succinate (Toprol Xl) 25 mg BID PO Last administered on 08/14/18 09:21; Admin Dose 25 MG; Start 07/29/18 at 09:00 Polyethyl Glycol/ Propylene Glycol (Systane 0.3-0.4% Eye Drops) 1 drop Q4H PRN BOTH EYES DRY EYES; Start 07/29/18 at 08:00 Albuterol (Ventolin Hfa) 2 puff Q4H RESP THERAPY PRN INH WHEEZING; Start 07/29/18 at 09:00 Miscellaneous Information 1 ea NOTE XX ; Start 07/29/18 at 07:00 Glucose (Glutose) 15 gm Q15M PRN PO DECREASED GLUCOSE; Start 07/29/18 at 07:00 Glucose (Glutose) 22.5 gm Q15M PRN PO DECREASED GLUCOSE; Start 07/29/18 at 07:00 Dextrose (D50w Syringe) 25 ml Q15M PRN IV DECREASED GLUCOSE; Start 07/29/18 at 07:00 Dextrose (D50w Syringe) 50 ml Q15M PRN IV DECREASED GLUCOSE; Start 07/29/18 at 07:00 Glucagon (Glucagen) 1 mg Q15M PRN IM DECREASED GLUCOSE; Start 07/29/18 at 07:00 Glucose (Glutose) 15 gm Q15M PRN BUCCAL DECREASED GLUCOSE; Start 07/29/18 at 07:00 Alprazolam (Xanax) 0.25 mg Q8H PRN PO ANXIETY Last administered on 08/13/18at 23:04; Admin Dose 0.25 MG; Start 07/29/18 at 12:30 Polyethylene Glycol (Miralax) 17 gm DAILY PO Last administered on 08/14/18at 09:15; Admin Dose 17 GM; Start 07/29/18 at 12:30 Docusate Sodium (Colace) 100 mg BID PO Last administered on 08/14/18 09:15; Admin Dose 100 MG; Start 07/31/18 at 21:00 Magnesium Hydroxide (Milk Of Mag) 30 ml Q12H PRN PO STOMACH UPSET/CRAMPING Last administered on 07/31/18at 21:28; Admin Dose 30 ML; Start 07/31/18 at 20:00 Al Hydrox/Mg Hydrox/Simethicone (Mag-Al Plus) 30 ml Q6H PRN PO GASTROINTESTINAL UPSET Last administered on 08/14/18at 09:31; Admin Dose 30 ML; Start 08/03/18 at 17:30 Insulin Aspart (Novolog Insulin Pen) (Adult SC Insulin - Moder... AC MEALS AND BEDTIME SC Last administered on 08/13/18at 20:47; Admin Dose 1 UNIT; Start 08/08/18 at 17:30 Insulin Glargine (Lantus) 8 units DAILY@2000 SC Last administered on 08/13/18at 21:09; Admin Dose 8 UNITS; Start 08/09/18 at 20:00 Insulin Aspart (Novolog Insulin Pen) 3 unit WITH MEALS SC Last administered on 08/14/18at 09:28; Admin Dose 3 UNIT; Start 08/09/18 at 18:00 Zolpidem Tartrate (Ambien) 5 mg HS PRN PO INSOMNIA Last administered on 08/13/18at 20:38; Admin Dose 5 MG; Start 08/12/18 at 21:30 FIDE MAGUIRE NP Aug 14, 2018 11:39
[2018-08-14] MEDS ORDERED: ALBUTEROL/IPRATROPIUM (NEB) 3 ML AMP HHN PRN (12:00)
[2018-08-14] MEDS: SOD CHLORIDE 0.9% 1,000 ML IV SCH (12:36)
--- NOTE | 2018-08-14 14:47 | RADRPT ---
Vent Rate: 77 bpm RR Interval: 784 msec ME Interval: 138 msec QRS Duration: 80 msec QT Interval: 339 msec QTC Interval: 383 msec P-R-T [place]: 46 - 1 - 216 degrees Sinus rhythm...normal P axis, V-rate 50- 99 Repol abnrm suggests ischemia, diffuse leads...ST-T neg, ant/lat/inf Electronically Signed By: Ru Harman
--- NOTE | 2018-08-14 17:53 | QN ---
Documentation Comment Pt is alert and active but unable to carry on a coherent conversation. Efforts to optimize her medically are underway. Surgery would be done once that is accomplished. TUAN BARRON MD Aug 14, 2018 17:53
[2018-08-14] MEDS ORDERED: FUROSEMIDE 40 MG INJ IV ONE (19:00)
[2018-08-14] MEDS: ATORVASTATIN 20 MG TAB PO SCH (20:46)
[2018-08-14] MEDS: ZOLPIDEM 5 MG TAB PO PRN (20:48)
[2018-08-14] MEDS: INSULIN GLARGINE [LANTus] (100 UNITS/ML) SYG SC SCH (21:00)
[2018-08-15] VITALS (16 sets, daily range): BP systolic 104–156; BP diastolic 51–84; PULSE 69–121; RESP 17–20
[2018-08-15] MEDS: ACCU-CHEK XX SCH (02:10)
[2018-08-15] MEDS: ALPRAZOLAM 0.25 MG TAB PO PRN (02:37)
--- NOTE | 2018-08-15 02:39 | PN ---
DATE: 08/14/2018 SUBJECTIVE: The patient is stable. The patient was transferred from med/surg to telemetry due to po sitive stress test. No other events noted. OBJECTIVE: VITAL SIGNS: Blood pressure is 125/58, respirations 20, pulse 73, temperature 97.8. HEENT: Head is normocephalic. NECK: Supple. HEART: Regular rate. LUNGS: Show diminished breath sounds at the base. ABDOMEN: Soft, nontender to palpation without rebound or guarding. EXTREMITIES: Negative for clubbing, cyanosis. Trace edema. DERMATOLOGIC: No rashes. MUSCULOSKELETAL: No joint effusions. NEUROLOGIC: No change in exam. MEDICATIONS: Have been reviewed. LABORATORY DATA: Has been reviewed. ASSESSMENT AND PLAN: 1. Nonoliguric acute kidney injury with previous baseline creatinine 0.9 mg/dL. Etiology of acute k idney injury is secondary to hemodynamics. Renal function has continued to decline. This may be sec ondary to volume depletion as patient has poor oral intake. Plan is to give the patient a gentle flu id challenge. Will consider repeat urinalysis. 2. Anemia. Monitor hemoglobin and hematocrit levels. 3. Hyperkalemia, improved. Continue to monitor. 4. Mineral bone disorder. Monitor calcium and phosphorus levels. 5. Lower extremity edema, possibly due to venous insufficiency. Continue to monitor. 6. Liver mass. The patient is status post biopsy. Pathology results are pending. 7. Anxiety disorder. Continue to monitor. 8. Coronary artery disease. The patient has noted positive stress test. Unclear if patient will re quire cardiac catheterization. Continue to monitor. Follow up with cardiology. Continue medical ma nagement. 9. Hypothyroidism. Continue Synthroid. 10. Diabetes. Continue current insulin regimen. Dictated By: JACOB BROCK DO NR/NTS Conf#: [id number] DID#: [id number] CC: TNA MAIER MD;*End*
[2018-08-15] MEDS: PANTOPRAZOLE (EC) 40 MG TAB PO SCH (05:25)
[2018-08-15] MEDS: LEVOTHYROXINE 50 MCG TAB PO SCH (05:25)
[2018-08-15] MEDS: INSULIN ASPART [NOVOLOG] 3 ML PEN SC SCH ×7 (07:00→20:58)
[2018-08-15] MEDS: SOD CHLORIDE 0.9% 1,000 ML IV SCH ×2 (08:00→14:13)
[2018-08-15] MEDS: ASPIRIN (EC) 81 MG TAB PO SCH (08:12)
[2018-08-15] MEDS: DOCUSATE SODIUM 100 MG CAP PO SCH ×2 (08:13→20:50)
[2018-08-15] MEDS: POLYETHYLENE GLYCOL 17 GM PACKET PO SCH (08:13)
[2018-08-15] MEDS: ENOXAPARIN 30 MG/0.3 ML SYG SC SCH (08:13)
[2018-08-15] MEDS: METOPROLOL (XL) 25 MG TAB PO SCH ×2 (08:55→20:58)
[2018-08-15] MEDS: CYANOCOBALAMIN 100 MCG TAB PO SCH (08:55)
[2018-08-15] MEDS: CLOPIDOGREL 75 MG TAB PO SCH (08:56)
--- NOTE | 2018-08-15 10:37 | CONS ---
Assessment/Plan Assessment/Plan Assessment/Plan (Daily) Chest x-ray showing a moderate right pleural effusion. Assessment and recommendations; 1. Patient admitted with shortness of breath discovered to have a liver mass which is metastatic carcinoma. 2. Right pleural effusion, possibly malignant. 3. Other comorbidities include history of mild chronic renal insufficiency, diabetes and hypothyroidism. 4. Anemia. Continue current supportive care. Patient scheduled for thoracentesis. Pleural fluid to be sent for cytology. Further recommendations per oncologist. Consultation Date/Type/Reason Admit Date/Time Jul 29, 2018 at 06:16 Date of Consultation: Aug 15, 2018 Type of Consult Pulmonary Patient is a 68-year-old lady who came into the hospital on the second of this month with complaints of shortness of breath. Upon evaluation a chest x-ray was done which is showing a right pleural effusion. Further work-up revealed a liver mass which is showing metastatic carcinoma. Patient denies any shortness of breath, chest pain, wheezing, sputum production hemoptysis. Has complained of weight loss. By the time I saw her, patient was completely awake and alert. And did not appear to be in any distress whatsoever. Past medical history; 1. Recently diagnosed metastatic hepatic carcinoma. 2. Chronic renal insufficiency. 3. History of diabetes and hypothyroidism. 4. History of left corneal opacity. Medications; reviewed. Allergies; Levaquin. Family history; she lives with HER-2 sons. No history of any malignancy. 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 Review of systems; denies any headache, seizures, visual changes. Any dysphagia. Denies any chest pain, complains of very mild shortness of breath. Denies any coughing, sputum production or hemoptysis. Denies any abdominal pain, any melena hematochezia complains of weight loss. Denies any edema. Complains of very mild orthopnea. Denies any joint symptoms. General exam; elderly female, awake alert. Currently no distress. Date/Time of Note DATE: 08/15/18 TIME: 10:33 Past Medical History Home Meds Active Scripts Magnesium Oxide* (Mag-Oxide*) 400 Mg Tablet, 400 MG PO BID for 3 Days, #10 TAB Prov:FERNANDO YANCEY MD 07/08/18 Lactobacillus Rhamnosus GG (Culturelle) 1 Each Capsule, 1 CAP PO BID for 14 Days, #30 CAP Prov:FERNANDO YANCEY MD 07/08/18 Acetaminophen* (Tylenol*) 325 Mg Tablet, 650 MG PO Q6H PRN for .PAIN 1-3 OR TEMP for 10 Days, #10 TAB Prov:FERNANDO YANCEY MD 07/08/18 Lisinopril* (Lisinopril*) 5 Mg Tablet, 2.5 MG PO DAILY for 15 Days, #15 TAB Prov:FERNANDO YANCEY MD 07/08/18 Sulfamethoxazole/Trimethoprim (Sulfamethoxazole-Tmp Ds Tablet) 1 Each Tablet, 1 TAB PO BID for 5 Days, #10 TAB Prov:FERNANDO YANCEY MD 07/08/18 Reported Medications Sodium Bicarbonate* (Sodium Bicarbonate*) 650 Mg Tablet, 650 MG PO TID, TAB 07/05/18 Propylene Glycol-Peg 400 (Systane 0.3-0.4% Eye Drops) 0.3-0.4 % - 30 Ml Drops, 1 DROP BOTH EYES Q4H PRN for DRY EYES, #1 BOTTLE 07/05/18 Pantoprazole* (Protonix*) 40 Mg Tablet.dr, 40 MG PO QAM, TAB 07/05/18 Ondansetron Hcl* (Zofran*) 8 Mg Tablet, 8 MG PO Q6H PRN for NAUSEA AND OR V OMITING, TAB 07/05/18 Metoprolol Succinate* (Toprol XL*) 25 Mg Tab.sr.24h, 25 MG PO BID, #30 TAB 07/05/18 Metformin* (Glucophage*) 500 Mg Tab, 500 MG PO WITH BREAKFAST, #30 TAB 07/05/18 Levothyroxine Sodium* (Synthroid*) 50 Mcg Tablet, 50 MCG PO BEFORE BREAKFAST, #30 TAB 07/05/18 Hydrocodone/Acetaminophen ([place] 5-325 Tablet) 1 Each Tablet, 1 EACH PO Q6 PRN for PAIN, TAB 07/05/18 [place]-3 Fatty Acids/Fish Oil (Fish Oil 1,000 mg Capsule) 1 Each Capsule, 1 EACH PO DAILY, CAP 07/05/18 Cyanocobalamin* (Vitamin B-12*) 50 Mcg Tablet, 50 MCG PO DAILY, TAB 07/05/18 Clopidogrel Bisulfate (Clopidogrel) 75 Mg Tablet, 75 MG PO DAILY, #30 TAB 07/05/18 Atorvastatin Calcium* (Atorvastatin Calcium*) 20 Mg Tablet, 20 MG PO QHS, #30 TAB 07/05/18 Aspirin* (Aspirin* EC) 81 Mg Tablet.dr, 81 MG PO DAILY, TAB 07/05/18 Artificial Tears* (Akwa Oint*) 3.5 Gm Oint, 1 APPLIC BOTH EYES Q1H PRN for DRY EYES, #1 TUB 07/05/18 Albuterol Sulfate (Proair Respiclick) 90 Mcg Aer.pow.ba, 2 PUFFS INHALATION Q4 PRN for WHEEZING, BOTTLE 07/05/18 Medications Current Medications IV Flush (NS 3 ml) 3 ml PER PROTOCOL IV Last administered on 08/05/18at 09:07; Admin Dose 3 ML; Start 07/29/18 at 06:30 Ondansetron HCl (Zofran Inj) 4 mg Q6H PRN IV NAUSEA/VOMITING Last administered on 08/11/18at 04:32; Admin Dose 4 MG; Start 07/29/18 at 06:30 Acetaminophen/ Hydrocodone Bitart ([place] (5/325)) 1 tab Q6H PRN PO .MOD PAIN 4- 6 Last administered on 08/14/18at 17:59; Admin Dose 1 TAB; Start 07/29/18 at 06:30 Pantoprazole (Protonix Tab) 40 mg DAILY@06 PO Last administered on 08/15/18at 05:25; Admin Dose 40 MG; Start 07/29/18 at 06:30 Enoxaparin Sodium (Lovenox) 30 mg DAILY SC Last administered on 08/13/18at 09:15; Admin Dose 30 MG; Start 07/29/18 at 09:00 Diagnostic Test (Pha) (Accu-Chek) 1 ea 02 XX Last administered on 08/15/18at 02:10; Admin Dose 1 EA; Start 07/30/18 at 02:00 Acetaminophen (Tylenol Tab) 650 mg Q6H PRN PO .PAIN 1-3 OR TEMP Last administered on 08/12/18at 16:11; Admin Dose 650 MG; Start 07/29/18 at 07:00 Eye Lubricant (Akwa Oint) 1 applic Q1H PRN BOTH EYES DRY EYES; Start 07/29/18 at 08:00 Aspirin (Halfprin) 81 mg DAILY PO Last administered on 08/14/18 09:15; Admin Dose 81 MG; Start 07/29/18 at 09:00 Atorvastatin Calcium (Lipitor) 20 mg QHS PO Last administered on 08/14/18at 20:46; Admin Dose 20 MG; Start 07/29/18 at 21:00 Clopidogrel Bisulfate (plaVIX) 75 mg DAILY PO Last administered on 08/14/18 09:15; Admin Dose 75 MG; Start 07/29/18 at 09:00 Cyanocobalamin (Vitamin B12) 50 mcg DAILY PO Last administered on 08/15/18 08:55; Admin Dose 50 MCG; Start 07/29/18 at 09:00 Levothyroxine Sodium (Synthroid) 50 mcg BEFORE BREAKFAST PO Last administered on 08/15/18 05:25; Admin Dose 50 MCG; Start 07/29/18 at 07:00 Metoprolol Succinate (Toprol Xl) 25 mg BID PO Last administered on 08/15/18 08:55; Admin Dose 25 MG; Start 07/29/18 at 09:00 Polyethyl Glycol/ Propylene Glycol (Systane 0.3-0.4% Eye Drops) 1 drop Q4H PRN BOTH EYES DRY EYES; Start 07/29/18 at 08:00 Albuterol (Ventolin Hfa) 2 puff Q4H RESP THERAPY PRN INH WHEEZING; Start 07/29/18 at 09:00 Miscellaneous Information 1 ea NOTE XX ; Start 07/29/18 at 07:00 Glucose (Glutose) 15 gm Q15M PRN PO DECREASED GLUCOSE; Start 07/29/18 at 07:00 Glucose (Glutose) 22.5 gm Q15M PRN PO DECREASED GLUCOSE; Start 07/29/18 at 07:00 Dextrose (D50w Syringe) 25 ml Q15M PRN IV DECREASED GLUCOSE; Start 07/29/18 at 07:00 Dextrose (D50w Syringe) 50 ml Q15M PRN IV DECREASED GLUCOSE; Start 07/29/18 at 07:00 Glucagon (Glucagen) 1 mg Q15M PRN IM DECREASED GLUCOSE; Start 07/29/18 at 07:00 Glucose (Glutose) 15 gm Q15M PRN BUCCAL DECREASED GLUCOSE; Start 07/29/18 at 07:00 Alprazolam (Xanax) 0.25 mg Q8H PRN PO ANXIETY Last administered on 08/15/18 02:37; Admin Dose 0.25 MG; Start 07/29/18 at 12:30 Polyethylene Glycol (Miralax) 17 gm DAILY PO Last administered on 08/14/18 09:15; Admin Dose 17 GM; Start 07/29/18 at 12:30 Docusate Sodium (Colace) 100 mg BID PO Last administered on 08/14/18 09:15; Ad min Dose 100 MG; Start 07/31/18 at 21:00 Magnesium Hydroxide (Milk Of Mag) 30 ml Q12H PRN PO STOMACH UPSET/CRAMPING Last administered on 07/31/18 21:28; Admin Dose 30 ML; Start 07/31/18 at 20:00 Al Hydrox/Mg Hydrox/Simethicone (Mag-Al Plus) 30 ml Q6H PRN PO GASTROINTESTINAL UPSET Last administered on 08/14/18 09:31; Admin Dose 30 ML; Start 08/03/18 at 17:30 Insulin Aspart (Novolog Insulin Pen) (Adult SC Insulin - Moder... AC MEALS AND BEDTIME SC Last administered on 08/13/18 20:47; Admin Dose 1 UNIT; Start 08/08/18 at 17:30 Insulin Glargine (Lantus) 8 units DAILY@2000 SC Last administered on 08/14/18 21:00; Admin Dose 8 UNITS; Start 08/09/18 at 20:00 Insulin Aspart (Novolog Insulin Pen) 3 unit WITH MEALS SC Last administered on 08/15/18 09:03; Admin Dose 3 UNIT; Start 08/09/18 at 18:00 Zolpidem Tartrate (Ambien) 5 mg HS PRN PO INSOMNIA Last administered on 08/14/18 20:48; Admin Dose 5 MG; Start 08/12/18 at 21:30 Albuterol/ Ipratropium (Duoneb) 3 ml Q2H RESP THERAPY PRN HHN sob; Start 08/14/18 at 12:00 Allergies: Coded Allergies: levofloxacin (Verified Allergy, Unknown, 07/05/18) Social History Alcohol Use: none Smoking Status: Never smoker Drug Use: none Exam/Review of Systems Exam Vitals Vital Signs Date Temp Pulse Resp B/P (MAP) Pulse Ox O2 O2 Flow FiO2 Time Delivery Rate 08/15/18 88 08:13 08/15/18 Nasal 2.0 07:51 Cannula 08/15/18 98.2 20 114/55 97 07:14 (74) Intake and Output 08/14/18 08/14/18 08/15/18 1515:00 23:00 07:00 IntakeIntake Total 850 ml 250 ml OutputOutput Total 100 ml 340 ml BalanceBalance 750 ml -90 ml Exam H EENT exam; supple neck, no JVD. No lymphadenopathy. Midline trachea. No thyromegaly. Patient is edentulous. No neck masses. There is a left corneal opacity. Chest exam; diminished breath sounds like regular. Rest of the lung sullivan are clear. S1-S2 audible, no murmurs. Regular rhythm. Abdomen exam; soft, nontender. Nondistended. No organomegaly. Bowel sounds are audible. Extremity exam; no peripheral edema clubbing. [employer]ET[employer] MA[employer] exam; no focal deficit. Results Result Diagram: 08/15/18 0934 08/14/18 0524 Results 24hrs Laboratory Tests Test 08/14/18 12:06 08/14/18 17:33 08/14/18 20:30 08/14/18 20:49 Bedside Glucose 98 102 122 Urine Color YELLOW Urine Clarity SLIGHTLY CLOUDY A Urine pH 5.0 Urine Specific 1.019 [place] Urine Ketones NEGATIVE Urine Nitrite NEGATIVE Urine Bilirubin NEGATIVE Urine NEGATIVE Urobilinogen Urine Leukocyte TRACE A Esterase Urine Microscopic 0 RBC Urine Microscopic 4 WBC Urine Squamous FEW Epithelial Cells Urine Hemoglobin NEGATIVE Urine Random 99.26 Creatinine Urine Random 30 Sodium Urine Glucose NEGATIVE Urine Total 11.0 Protein Test 08/15/18 07:44 08/15/18 09:34 Bedside Glucose 97 White Blood Count 13.0 H Red Blood Count 2.93 #L Hemoglobin 8.4 L Hematocrit 26.1 #L Mean Corpuscular 89.1 Volume Mean Corpuscular 28.7 L Hemoglobin Mean Corpuscular 32.2 Hemoglobin Concen t Red Cell 15.9 H Distribution Width Platelet Count 833 #H Mean Platelet 9.2 Volume Immature 0.600 H Granulocytes % Neutrophils % 76.1 Lymphocytes % 13.6 L Monocytes % 8.8 Eosinophils % 0.6 Basophils % 0.3 Nucleated Red 0.0 Blood Cells % Immature 0.080 H Granulocytes # Neutrophils # 9.9 H Lymphocytes # 1.8 Monocytes # 1.2 H Eosinophils # 0.1 Basophils # 0.0 Nucleated Red 0.0 Blood Cells # Medications Medication Current Medications IV Flush (NS 3 ml) 3 ml PER PROTOCOL IV Last administered on 08/05/18 09:07; Admin Dose 3 ML; Start 07/29/18 at 06:30 Ondansetron HCl (Zofran Inj) 4 mg Q6H PRN IV NAUSEA/VOMITING Last administered on 08/11/18 04:32; Admin Dose 4 MG; Start 07/29/18 at 06:30 Acetaminophen/ Hydrocodone Bitart ([place] (5/325)) 1 tab Q6H PRN PO .MOD PAIN 4- 6 Last administered on 08/14/18 17:59; Admin Dose 1 TAB; Start 07/29/18 at 06:30 Pantoprazole (Protonix Tab) 40 mg DAILY@06 PO Last administered on 08/15/18 05:25; Admin Dose 40 MG; Start 07/29/18 at 06:30 Enoxaparin Sodium (Lovenox) 30 mg DAILY SC Last administered on 08/13/18 09 :15; Admin Dose 30 MG; Start 07/29/18 at 09:00 Diagnostic Test (Pha) (Accu-Chek) 1 ea 02 XX Last administered on 08/15/18 02:10; Admin Dose 1 EA; Start 07/30/18 at 02:00 Acetaminophen (Tylenol Tab) 650 mg Q6H PRN PO .PAIN 1-3 OR TEMP Last administered on 08/12/18 16:11; Admin Dose 650 MG; Start 07/29/18 at 07:00 Eye Lubricant (Akwa Oint) 1 applic Q1H PRN BOTH EYES DRY EYES; Start 07/29/18 at 08:00 Aspirin (Halfprin) 81 mg DAILY PO Last administered on 08/14/18 09:15; Admin Dose 81 MG; Start 07/29/18 at 09:00 Atorvastatin Calcium (Lipitor) 20 mg QHS PO Last administered on 08/14/18 20:46; Admin Dose 20 MG; Start 07/29/18 at 21:00 Clopidogrel Bisulfate (plaVIX) 75 mg DAILY PO Last administered on 08/14/18 09:15; Admin Dose 75 MG; Start 07/29/18 at 09:00 Cyanocobalamin (Vitamin B12) 50 mcg DAILY PO Last administered on 08/15/18at 08:55; Admin Dose 50 MCG; Start 07/29/18 at 09:00 Levothyroxine Sodium (Synthroid) 50 mcg BEFORE BREAKFAST PO Last administered on 08/15/18at 05:25; Admin Dose 50 MCG; Start 07/29/18 at 07:00 Metoprolol Succinate (Toprol Xl) 25 mg BID PO Last administered on 08/15/18 08:55; Admin Dose 25 MG; Start 07/29/18 at 09:00 Polyethyl Glycol/ Propylene Glycol (Systane 0.3-0.4% Eye Drops) 1 drop Q4H PRN BOTH EYES DRY EYES; Start 07/29/18 at 08:00 Albuterol (Ventolin Hfa) 2 puff Q4H RESP THERAPY PRN INH WHEEZING; Start 07/29/18 at 09:00 Miscellaneous Information 1 ea NOTE XX ; Start 07/29/18 at 07:00 Glucose (Glutose) 15 gm Q15M PRN PO DECREASED GLUCOSE; Start 07/29/18 at 07:00 Glucose (Glutose) 22.5 gm Q15M PRN PO DECREASED GLUCOSE; Start 07/29/18 at 07:00 Dextrose (D50w Syringe) 25 ml Q15M PRN IV DECREASED GLUCOSE; Start 07/29/18 at 07:00 Dextrose (D50w Syringe) 50 ml Q15M PRN IV DECREASED GLUCOSE; Start 07/29/18 at 07:00 Glucagon (Glucagen) 1 mg Q15M PRN IM DECREASED GLUCOSE; Start 07/29/18 at 07:00 Glucose (Glutose) 15 gm Q15M PRN BUCCAL DECREASED GLUCOSE; Start 07/29/18 at 07:00 Alprazolam (Xanax) 0.25 mg Q8H PRN PO ANXIETY Last administered on 08/15/18at 02:37; Admin Dose 0.25 MG; Start 07/29/18 at 12:30 Polyethylene Glycol (Miralax) 17 gm DAILY PO Last administered on 08/14/18at 09:15; Admin Dose 17 GM; Start 07/29/18 at 12:30 Docusate Sodium (Colace) 100 mg BID PO Last administered on 08/14/18at 09:15; Admin Dose 100 MG; Start 07/31/18 at 21:00 Magnesium Hydroxide (Milk Of Mag) 30 ml Q12H PRN PO STOMACH UPSET/CRAMPING Last administered on 07/31/18 21:28; Admin Dose 30 ML; Start 07/31/18 at 20:00 Al Hydrox/Mg Hydrox/Simethicone (Mag-Al Plus) 30 ml Q6H PRN PO GASTROINTESTINAL UPSET Last administered on 08/14/18 09:31; Admin Dose 30 ML; Start 08/03/18 at 17:30 Insulin Aspart (Novolog Insulin Pen) (Adult SC Insulin - Moder... AC MEALS AND BEDTIME SC Last administered on 08/13/18 20:47; Admin Dose 1 UNIT; Start 08/08/18 at 17:30 Insulin Glargine (Lantus) 8 units DAILY@2000 SC Last administered on 08/14/18 21:00; Admin Dose 8 UNITS; Start 08/09/18 at 20:00 Insulin Aspart (Novolog Insulin Pen) 3 unit WITH MEALS SC Last administered on 08/15/18 09:03; Admin Dose 3 UNIT; Start 08/09/18 at 18:00 Zolpidem Tartrate (Ambien) 5 mg HS PRN PO INSOMNIA Last administered on 08/14/18at 20:48; Admin Dose 5 MG; Start 08/12/18 at 21:30 Albuterol/ Ipratropium (Duoneb) 3 ml Q2H RESP THERAPY PRN HHN sob; Start 08/14/18 at 12:00 MIKEY FAGAN Aug 15, 2018 10:37
[2018-08-15] MEDS ORDERED: LIDOCAINE 1% (MPF) 5 ML VIAL ONE (11:52)
--- NOTE | 2018-08-15 12:46 | CONS ---
Assessment/Plan Assessment/Plan Hospital Course (Demo Recall) IMP: 1.Preop-neg trop .3 including this am. NL EF by echo. Lexiscan with possible distal anterior ischemia. NL EF 2.abnl ecg-ECG today with inferior ST elevation but with normal concaviity and Q 's isolated to lead 3 No chest pain or sob/neg trop this am. ? pericarditits. NL EF by echo this admit. multiple negative troponins and no chest pain 3.Uterine cancer 4.DM 5.HTN 6.HL Recc -Tele -Continue asa/plavix/toprol/statin -ongoing renal f/u -f/u pathology from [facility]x -reccommend either cardiac cath or CTA to further assess for sig obstructve cad and given recent flood in cathlab would thus attempt to proceed with CTA but will discuss with renal first given renal insufficiency Consultation Date/Type/Reason Admit Date/Time Jul 29, 2018 at 06:16 Initial Consult Date 08/10/18 Type of Consult Cardiology Reason for Consultation preop Requesting Provider: SANDI MURDOCK NP Date/Time of Note DATE: 08/15/18 TIME: 12:42 Exam/Review of Systems Vital Signs Vitals Vital Signs Date Temp Pulse Resp B/P (MAP) Pulse Ox O2 O2 Flow FiO2 Time Delivery Rate 08/15/18 79 12:08 08/15/18 Nasal 2.0 07:51 Cannula 08/15/18 98.2 20 114/55 97 07:14 (74) Intake and Output 08/14/18 08/14/18 08/15/18 1414:59 22:59 06:59 IntakeIntake Total 850 ml 250 ml OutputOutput Total 100 ml 340 ml BalanceBalance 750 ml -90 ml Exam Exam Review of Systems: CONSTITUTIONAL: No fevers, chills. PULMONARY: No sob CARDIOVASCULAR: No chest pain/palpitations GASTROINTESTINAL: No nausea/vomiting. GENITOURINARY: No hematuria/dysuria. MUSCULOSKELETAL: No myagias/arthalgias. PSYCHIATRIC: The patient denies depression. NEUROLOGIC: No weakness Constitutional: alert Psych: no complaints Head: normocephalic ENMT: mucosa pink and moist Neck: supple, jvd (9 cm water) Respiratory: clear to auscultation Cardiovascular: regular rate and rhythm Gastrointestinal: soft, non-tender Musculoskeletal: muscle tone (normal) Extremities: edema (trace/B) Labs Result Diagram: 08/15/18 0934 08/15/18 0934 Results 24hrs Laboratory Tests Test 08/14/18 17:33 08/14/18 20:30 08/14/18 20:49 08/15/18 07:44 Bedside Glucose 102 122 97 Urine Color YELLOW Urine Clarity SLIGHTLY CLOUDY A Urine pH 5.0 Urine Specific 1.019 [place] Urine Ketones NEGATIVE Urine Nitrite NEGATIVE Urine Bilirubin NEGATIVE Urine NEGATIVE Urobilinogen Urine Leukocyte TRACE A Esterase Urine Microscopic 0 RBC Urine Microscopic 4 WBC Urine Squamous FEW Epithelial Cells Urine Hemoglobin NEGATIVE Urine Random 99.26 Creatinine Urine Random 30 Sodium Urine Glucose NEGATIVE Urine Total 11.0 Protein Test 08/15/18 09:34 08/15/18 12:12 White Blood Count 13.0 H Red Blood Count 2.93 #L Hemoglobin 8.4 L Hematocrit 26.1 #L Mean Corpuscular 89.1 Volume Mean Corpuscular 28.7 L Hemoglobin Mean Corpuscular 32.2 Hemoglobin Concen t Red Cell 15.9 H Distribution Width Platelet Count 833 #H Mean Platelet 9.2 Volume Immature 0.600 H Granulocytes % Neutrophils % 76.1 Lymphocytes % 13.6 L Monocytes % 8.8 Eosinophils % 0.6 Basophils % 0.3 Nucleated Red 0.0 Blood Cells % Immature 0.080 H Granulocytes # Neutrophils # 9.9 H Lymphocytes # 1.8 Monocytes # 1.2 H Eosinophils # 0.1 Basophils # 0.0 Nucleated Red 0.0 Blood Cells # Sodium Level 138 Potassium Level 4.2 Chloride Level 103 Carbon Dioxide 21 Level Anion Gap 14 #H Blood Urea 49 H Nitrogen Creatinine 1.33 H Est Glomerular 40 L Filtrat Rate mL/min Glucose Level 112 Calcium Level 9.1 Bedside Glucose 93 Medications Medications Current Medications IV Flush (NS 3 ml) 3 ml PER PROTOCOL IV Last administered on 08/05/18at 09:07; Admin Dose 3 ML; Start 07/29/18 at 06:30 Ondansetron HCl (Zofran Inj) 4 mg Q6H PRN IV NAUSEA/VOMITING Last administered on 08/11/18at 04:32; Admin Dose 4 MG; Start 07/29/18 at 06:30 Acetaminophen/ Hydrocodone Bitart ([place] (5/325)) 1 tab Q6H PRN PO .MOD PAIN 4- 6 Last administered on 08/14/18 17:59; Admin Dose 1 TAB; Start 07/29/18 at 06:30 Pantoprazole (Protonix Tab) 40 mg DAILY@06 PO Last administered on 08/15/18 05:25; Admin Dose 40 MG; Start 07/29/18 at 06:30 Enoxaparin Sodium (Lovenox) 30 mg DAILY SC Last administered on 08/13/18 09:15; Admin Dose 30 MG; Start 07/29/18 at 09:00 Diagnostic Test (Pha) (Accu-Chek) 1 ea 02 XX Last administered on 08/15/18 02:10; Admin Dose 1 EA; Start 07/30/18 at 02:00 Acetaminophen (Tylenol Tab) 650 mg Q6H PRN PO .PAIN 1-3 OR TEMP Last administered on 08/12/18 16:11; Admin Dose 650 MG; Start 07/29/18 at 07:00 Eye Lubricant (Akwa Oint) 1 applic Q1H PRN BOTH EYES DRY EYES; Start 07/29/18 at 08:00 Aspirin (Halfprin) 81 mg DAILY PO Last administered on 08/14/18 09:15; Admin Dose 81 MG; Start 07/29/18 at 09:00 Atorvastatin Calcium (Lipitor) 20 mg QHS PO Last administered on 08/14/18 20:46; Admin Dose 20 MG; Start 07/29/18 at 21:00 Clopidogrel Bisulfate (plaVIX) 75 mg DAILY PO Last administered on 08/14/18 09:15; Admin Dose 75 MG; Start 07/29/18 at 09:00 Cyanocobalamin (Vitamin B12) 50 mcg DAILY PO Last administered on 08/15/18 08:55; Admin Dose 50 MCG; Start 07/29/18 at 09:00 Levothyroxine Sodium (Synthroid) 50 mcg BEFORE BREAKFAST PO Last administered on 08/15/18 05:25; Admin Dose 50 MCG; Start 07/29/18 at 07:00 Metoprolol Succinate (Toprol Xl) 25 mg BID PO Last administered on 08/15/18 08:55; Admin Dose 25 MG; Start 07/29/18 at 09:00 Polyethyl Glycol/ Propylene Glycol (Systane 0.3-0.4% Eye Drops) 1 drop Q4H PRN BOTH EYES DRY EYES; Start 07/29/18 at 08:00 Albuterol (Ventolin Hfa) 2 puff Q4H RESP THERAPY PRN INH WHEEZING; Start at 09:00 Miscellaneous Information 1 ea NOTE XX ; Start 07/29/18 at 07:00 Glucose (Glutose) 15 gm Q15M PRN PO DECREASED GLUCOSE; Start 07/29/18 at 07:00 Glucose (Glutose) 22.5 gm Q15M PRN PO DECREASED GLUCOSE; Start 07/29/18 at 07:00 Dextrose (D50w Syringe) 25 ml Q15M PRN IV DECREASED GLUCOSE; Start 07/29/18 at 07:00 Dextrose (D50w Syringe) 50 ml Q15M PRN IV DECREASED GLUCOSE; Start 07/29/18 at 07:00 Glucagon (Glucagen) 1 mg Q15M PRN IM DECREASED GLUCOSE; Start 07/29/18 at 07:00 Glucose (Glutose) 15 gm Q15M PRN BUCCAL DECREASED GLUCOSE; Start 07/29/18 at 07:00 Alprazolam (Xanax) 0.25 mg Q8H PRN PO ANXIETY Last administered on 08/15/18at 02:37; Admin Dose 0.25 MG; Start 07/29/18 at 12:30 Polyethylene Glycol (Miralax) 17 gm DAILY PO Last administered on 08/14/18 09:15; Admin Dose 17 GM; Start 07/29/18 at 12:30 Docusate Sodium (Colace) 100 mg BID PO Last administered on 08/14/18 09:15; Admin Dose 100 MG; Start 07/31/18 at 21:00 Magnesium Hydroxide (Milk Of Mag) 30 ml Q12H PRN PO STOMACH UPSET/CRAMPING Last administered on 07/31/18at 21:28; Admin Dose 30 ML; Start 07/31/18 at 20:00 Al Hydrox/Mg Hydrox/Simethicone (Mag-Al Plus) 30 ml Q6H PRN PO GASTROINTESTINAL UPSET Last administered on 08/14/18at 09:31; Admin Dose 30 ML; Start 08/03/18 at 17:30 Insulin Aspart (Novolog Insulin Pen) (Adult SC Insulin - Moder... AC MEALS AND BEDTIME SC Last administered on 08/13/18at 20:47; Admin Dose 1 UNIT; Start 08/08/18 at 17:30 Insulin Glargine (Lantus) 8 units DAILY@2000 SC Last administered on 08/14/18at 21:00; Admin Dose 8 UNITS; Start 08/09/18 at 20:00 Insulin Aspart (Novolog Insulin Pen) 3 unit WITH MEALS SC Last administered on 08/15/18at 12:23; Admin Dose 3 UNIT; Start 08/09/18 at 18:00 Zolpidem Tartrate (Ambien) 5 mg HS PRN PO INSOMNIA Last administered on 08/14/18at 20:48; Admin Dose 5 MG; Start 08/12/18 at 21:30 Albuterol/ Ipratropium (Duoneb) 3 ml Q2H RESP THERAPY PRN HHN sob; Start 08/14/18 at 12:00 TAN LIRIANO Aug 15, 2018 12:46
--- NOTE | 2018-08-15 13:15 | PN ---
DATE: 08/15/2018 SUBJECTIVE: The patient is stable. No events overnight. OBJECTIVE: VITAL SIGNS: Blood pressure 114/55, pulse 88, respirations 20, temperature 98.2. HEENT: Head is normocephalic. NECK: Supple. HEART: Regular rate. LUNGS: Show diminished breath sounds at the base. ABDOMEN: Soft, nontender to palpation without rebound or guarding. EXTREMITIES: Negative for clubbing, cyanosis, no edema. DERMATOLOGIC: No rashes. MUSCULOSKELETAL: No joint effusions. NEUROLOGIC: No change in exam. MEDICATIONS: The patient's medications have been reviewed. LABORATORY DATA: Has been reviewed. IMAGING STUDIES: Have been reviewed. ASSESSMENT AND PLAN: 1. Nonoliguric acute kidney injury with previous baseline creatinine around 0.9 mg/dL. Etiology of acute kidney injury is secondary to hemodynamics. The patient's renal function continues to fluctuat e. At this point, continue current treatment plan, supportive care, renally dose all meds. Monitor closely on diuretic therapy. The patient is status post fluid challenge. 2. Anemia. Monitor hemoglobin and hematocrit levels. 3. Hypokalemia, improved. 4. Mineral bone disorder. Monitor calcium and phosphorus levels. 5. Venous insufficiency. 6. Pleural effusion, status post thoracentesis. 7. Liver mass. The patient is status post biopsy. Pathology results pending. 8. Anxiety disorder. 9. Coronary artery disease. The patient had a positive stress test. Continue to monitor. Follow u p with cardiology, possible cardiac catheterization. 10. Hypothyroidism. Continue Synthroid. 11. Diabetes. Continue current insulin regimen. Dictated By: JACOB KAUFMAN/NTS Conf#: [id number] DID#: [id number] CC: TAN MAIER MD;*EndCC*
[2018-08-15] MEDS: AL HYDROX/MG HYDROX/SIMETH 30 ML CUP PO PRN (14:13)
--- NOTE | 2018-08-15 14:39 | PN ---
Date/Time of Note Date/Time of Note DATE: 08/15/18 TIME: 14:30 Assessment/Plan VTE Prophylaxis Risk score (from Ns)>0 risk: 8 SCD applied (from Ns): No SCD contraindicated: other Pharmacological prophylaxis: LMWH Lines/Catheters IV Catheter Type (from [facility]): Peripheral IV Urinary Cath still in place: No Assessment/Plan Hospital Course 1. 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 - May benefit from a debulking surgery because of the large pelvic mass - Plan for surgical intervention once more stable 2. Bilateral lower extremity edema. - suspect multifactorial including underlying diastolic heart failure, and venous insufficiency. - diuresis as renal function tolerates 3. Peripheral artery disease. - vascular surgeon following - Continue aspirin plus Plavix. - Continue statins. 4. Diabetes mellitus. - Hemoglobin A1c 6.3. - Continue sliding scale insulin along with pre-meal insulin and basal. 5. Elevated CA-19-9. - MRI of the abdomen showing multiple parenchymal and capsular liver lesions. - S/P percutaneous biopsy on 08/09/2018 with pathology: Mass, right lobe of liver, CT-guided core needle biopsies with touch imprints: -- Metastatic malignant mesodermal mixed tumor (carcinosarcoma). 6. Constipation. - Continue bowel regimen. - GI following 7. Hypothyroidism. - Continue Synthroid. 8. Acute kidney injury. - potato chip maker following 9. Normocytic anemia. - Monitor H&H closely. - Continue iron supplements. 10. s/p Stress test 08.13.18 with small partially reversible perfusion defect in the distal anterior wall - possible heart cath pending renal function 11. Dyspnea - noted with large right pleural effusion s/p thoracentesis with 750ml rem niru 19 - follow up pleural studies. - CXR s/p thoracentesis: Mild interval decrease in right pleural fluid with mildly improved aeration of the right lung. Moderate residual pleural effusion with associated atelectasis/consolidation of the right middle and lower lobes and perihilar right upper lobe infiltrates remains. - rail specialist following Disposition and plan: At present patient is not a candidate for chemotherapy. Tentative plan for pelvic surgery for removing uterine mass once more medically stable. Medical optimization in progress. Was reported patient's son Rk is seeking for aggressive therapy regarding uterine mass. Patient is status post Lexiscan stress test on August 13, 2018 showing skin to graphic abnormalities consistent with a small partially reversible perfusion defect in the distal anterior wall. possible heart cath pending renal function status. s/p thoracentesis for right pleural effusion. f/u studies. Still with conso lidation of right middle/lower lung lobes s/p thoracentesis. f/u rail specialist recommendations. check AM labs. continue inhouse monitoring. continue PT. Discussed POC with Dr. Allen Result Diagram: 08/15/18 0934 08/15/1834 Results 24hrs Laboratory Tests Test 08/14/18 17:33 08/14/18 20:30 08/14/18 20:49 08/15/18 07:44 Bedside Glucose 102 122 97 Urine Color YELLOW Urine Clarity SLIGHTLY CLOUDY A Urine pH 5.0 Urine Specific 1.019 [place] Urine Ketones NEGATIVE Urine Nitrite NEGATIVE Urine Bilirubin NEGATIVE Urine NEGATIVE Urobilinogen Urine Leukocyte TRACE A Esterase Urine Microscopic 0 RBC Urine Microscopic 4 WBC Urine Squamous FEW Epithelial Cells Urine Hemoglobin NEGATIVE Urine Random 99.26 Creatinine Urine Random 30 Sodium Urine Glucose NEGATIVE Urine Total 11.0 Protein Test 08/15/18 09:34 08/15/18 11:41 08/15/18 12:12 White Blood Count 13.0 H Red Blood Count 2.93 #L Hemoglobin 8.4 L Hematocrit 26.1 #L Mean Corpuscular 89.1 Volume Mean Corpuscular 28.7 L Hemoglobin Mean Corpuscular 32.2 Hemoglobin Concen t Red Cell 15.9 H Distribution Width Platelet Count 833 #H Mean Platelet 9.2 Volume Immature 0.600 H Granulocytes % Neutrophils % 76.1 Lymphocytes % 13.6 L Monocytes % 8.8 Eosinophils % 0.6 Basophils % 0.3 Nucleated Red 0.0 Blood Cells % Immature 0.080 H Granulocytes # Neutrophils # 9.9 H Lymphocytes # 1.8 Monocytes # 1.2 H Eosinophils # 0.1 Basophils # 0.0 Nucleated Red 0.0 Blood Cells # Sodium Level 138 Potassium Level 4.2 Chloride Level 103 Carbon Dioxide 21 Level Anion Gap 14 #H Blood Urea 49 H Nitrogen Creatinine 1.33 H Est Glomerular 40 L Filtrat Rate mL/min Glucose Level 112 Calcium Level 9.1 Pathologist YES Review (Hematolog y) Body Fluid Type THORACENTESIS FL UID Body Fluid Volume 700.0 Body Fluid Color CANDY Body Fluid TURBID Appearance Body Fluid WBC 302 Body Fluid RBC 05869 (Auto) Body Fluid 15.3 Polynuclear WBCs (%) Body Fluid 84.7 Mononuclear Cells % Auto Body Fluid 1989 Lactate Dehydroge nase Bedside Glucose 93 Subjective 24 Hr Interval Summary Free Text/Dictation Reports better breathing today. no reports of pain. comfortable at present Exam/Review of Systems Exam Vitals Vital Signs Date Temp Pulse Resp B/P (MAP) Pulse Ox O2 O2 Flow FiO2 Time Delivery Rate 08/15/18 79 12:08 08/15/18 98.0 156/70 97 Room Air 11:00 (98) 08/15/18 2.0 07:51 08/15/18 20 07:14 Intake and Output 08/14/18 08/14/18 08/15/18 1515:00 23:00 07:00 IntakeIntake Total 850 ml 250 ml OutputOutput Total 100 ml 340 ml BalanceBalance 750 ml -90 ml Exam Constitutional: alert Psych: anxiety Head: normocephalic Eyes: nl conjunctiva Neck: supple, non-tender Respiratory: no wheezing/rhonchi, Gastrointestinal: soft, non-tender Musculoskeletal: swelling (BLE ) Neurological: nl speech Results Results 24hrs Laboratory Tests Test 08/14/18 17:33 08/14/18 20:30 08/14/18 20:49 08/15/18 07:44 Bedside Glucose 102 122 97 Urine Color YELLOW Urine Clarity SLIGHTLY CLOUDY A Urine pH 5.0 Urine Specific 1.019 [place] Urine Ketones NEGATIVE Urine Nitrite NEGATIVE Urine Bilirubin NEGATIVE Urine NEGATIVE Urobilinogen Urine Leukocyte TRACE A Esterase Urine Microscopic 0 RBC Urine Microscopic 4 WBC Urine Squamous FEW Epithelial Cells Urine Hemoglobin NEGATIVE Urine Random 99.26 Creatinine Urine Random 30 Sodium Urine Glucose NEGATIVE Urine Total 11.0 Protein Test 08/15/18 09:34 08/15/18 11:41 08/15/18 12:12 White Blood Count 13.0 H Red Blood Count 2.93 #L Hemoglobin 8.4 L Hematocrit 26.1 #L Mean Corpuscular 89.1 Volume Mean Corpuscular 28.7 L Hemoglobin Mean Corpuscular 32.2 Hemoglobin Concen t Red Cell 15.9 H Distribution Width Platelet Count 833 #H Mean Platelet 9.2 Volume Immature 0.600 H Granulocytes % Neutrophils % 76.1 Lymphocytes % 13.6 L Monocytes % 8.8 Eosinophils % 0.6 Basophils % 0.3 Nucleated Red 0.0 Blood Cells % Immature 0.080 H Granulocytes # Neutrophils # 9.9 H Lymphocytes # 1.8 Monocytes # 1.2 H Eosinophils # 0.1 Basophils # 0.0 Nucleated Red 0.0 Blood Cells # Sodium Level 138 Potassium Level 4.2 Chloride Level 103 Carbon Dioxide 21 Level Anion Gap 14 #H Blood Urea 49 H Nitrogen Creatinine 1.33 H Est Glomerular 40 L Filtrat Rate mL/min Glucose Level 112 Calcium Level 9.1 Pathologist YES Review (Hematolog y) Body Fluid Type THORACENTESIS FL UID Body Fluid Volume 700.0 Body Fluid Color CANDY Body Fluid TURBID Appearance Body Fluid WBC 302 Body Fluid RBC 96286 (Auto) Body Fluid 15.3 Polynuclear WBCs (%) Body Fluid 84.7 Mononuclear Cells % Auto Body Fluid 1989 Lactate Dehydroge nase Bedside Glucose 93 Medications Medication Current Medications IV Flush (NS 3 ml) 3 ml PER PROTOCOL IV Last administered on 08/05/18 09:07; Admin Dose 3 ML; Start 07/29/18 at 06:30 Ondansetron HCl (Zofran Inj) 4 mg Q6H PRN IV NAUSEA/VOMITING Last administered on 08/11/18 04:32; Admin Dose 4 MG; Start 07/29/18 at 06:30 Acetaminophen/ Hydrocodone Bitart ([place] (5/325)) 1 tab Q6H PRN PO .MOD PAIN 4- 6 Last administered on 08/14/18 17:59; Admin Dose 1 TAB; Start 07/29/18 at 06:30 Pantoprazole (Protonix Tab) 40 mg DAILY@06 PO Last administered on 08/15/18 05:25; Admin Dose 40 MG; Start 07/29/18 at 06:30 Enoxaparin Sodium (Lovenox) 30 mg DAILY SC Last administered on 08/13/18 09:15; Admin Dose 30 MG; Start 07/29/18 at 09:00 Diagnostic Test (Pha) (Accu-Chek) 1 ea 02 XX Last administered on 08/15/18 02:10; Admin Dose 1 EA; Start 07/30/18 at 02:00 Acetaminophen (Tylenol Tab) 650 mg Q6H PRN PO .PAIN 1-3 OR TEMP Last administered on 08/12/18at 16:11; Admin Dose 650 MG; Start 07/29/18 at 07:00 Eye Lubricant (Akwa Oint) 1 applic Q1H PRN BOTH EYES DRY EYES; Start 07/29/18 at 08:00 Aspirin (Halfprin) 81 mg DAILY PO Last administered on 08/14/18at 09:15; Admin Dose 81 MG; Start 07/29/18 at 09:00 Atorvastatin Calcium (Lipitor) 20 mg QHS PO Last administered on 08/14/18at 20:46; Admin Dose 20 MG; Start 07/29/18 at 21:00 Clopidogrel Bisulfate (plaVIX) 75 mg DAILY PO Last administered on 08/14/18at 09:15; Admin Dose 75 MG; Start 07/29/18 at 09:00 Cyanocobalamin (Vitamin B12) 50 mcg DAILY PO Last administered on 08/15/18at 08:55; Admin Dose 50 MCG; Start 07/29/18 at 09:00 Levothyroxine Sodium (Synthroid) 50 mcg BEFORE BREAKFAST PO Last administered on 08/15/18at 05:25; Admin Dose 50 MCG; Start 07/29/18 at 07:00 Metoprolol Succinate (Toprol Xl) 25 mg BID PO Last administered on 08/15/18at 08:55; Admin Dose 25 MG; Start 07/29/18 at 09:00 Polyethyl Glycol/ Propylene Glycol (Systane 0.3-0.4% Eye Drops) 1 drop Q4H PRN BOTH EYES DRY EYES; Start 07/29/18 at 08:00 Albuterol (Ventolin Hfa) 2 puff Q4H RESP THERAPY PRN INH WHEEZING; Start 07/29/18 at 09:00 Miscellaneous Information 1 ea NOTE XX ; Start 07/29/18 at 07:00 Glucose (Glutose) 15 gm Q15M PRN PO DECREASED GLUCOSE; Start 07/29/18 at 07:00 Glucose (Glutose) 22.5 gm Q15M PRN PO DECREASED GLUCOSE; Start 07/29/18 at 07:00 Dextrose (D50w Syringe) 25 ml Q15M PRN IV DECREASED GLUCOSE; Start 07/29/18 at 07:00 Dextrose (D50w Syringe) 50 ml Q15M PRN IV DECREASED GLUCOSE; Start 07/29/18 at 07:00 Glucagon (Glucagen) 1 mg Q15M PRN IM DECREASED GLUCOSE; Start 07/29/18 at 07:00 Glucose (Glutose) 15 gm Q15M PRN BUCCAL DECREASED GLUCOSE; Start 07/29/18 at 07:00 Alprazolam (Xanax) 0.25 mg Q8H PRN PO ANXIETY Last administered on 08/15/18 02:37; Admin Dose 0.25 MG; Start 07/29/18 at 12:30 Polyethylene Glycol (Miralax) 17 gm DAILY PO Last administered on 08/14/18 09:15; Admin Dose 17 GM; Start 07/29/18 at 12:30 Docusate Sodium (Colace) 100 mg BID PO Last administered on 08/14/18 09:15; Admin Dose 100 MG; Start 07/31/18 at 21:00 Magnesium Hydroxide (Milk Of Mag) 30 ml Q12H PRN PO STOMACH UPSET/CRAMPING Last administered on 07/31/18 21:28; Admin Dose 30 ML; Start 07/31/18 at 20:00 Al Hydrox/Mg Hydrox/Simethicone (Mag-Al Plus) 30 ml Q6H PRN PO GASTROINTESTINAL UPSET Last administered on 08/15/18 14:13; Admin Dose 30 ML; Start 08/03/18 at 17:30 Insulin Aspart (Novolog Insulin Pen) (Adult SC Insulin - Moder... AC MEALS AND BEDTIME SC Last administered on 08/13/18at 20:47; Admin Dose 1 UNIT; Start 08/08/18 at 17:30 Insulin Glargine (Lantus) 8 units DAILY@2000 SC Last administered on 08/14/18 21:00; Admin Dose 8 UNITS; Start 08/09/18 at 20:00 Insulin Aspart (Novolog Insulin Pen) 3 unit WITH MEALS SC Last administered on 08/15/18 12:23; Admin Dose 3 UNIT; Start 08/09/18 at 18:00 Zolpidem Tartrate (Ambien) 5 mg HS PRN PO INSOMNIA Last administered on 08/14/18 20:48; Admin Dose 5 MG; Start 08/12/18 at 21:30 Albuterol/ Ipratropium (Duoneb) 3 ml Q2H RESP THERAPY PRN HHN sob; Start 08/14/18 at 12:00 Sodium Chloride 1,000 ml @ 50 mls/hr Q20H IV Last administered on 08/15/18at 14:13; Admin Dose 50 MLS/HR; Start 08/15/18 at 14:00 FIDE MAGUIRE NP Aug 15, 2018 14:38
[2018-08-15] MEDS: HYDROCODONE/APAP (5/325) TAB PO PRN (16:11)
--- NOTE | 2018-08-15 17:26 | QN ---
Documentation Comment Pt may have cardiac issue. This is being assessed as to its significance. Until this is done, surgery would be deferred. I will f/u. TUAN BARRON MD Aug 15, 2018 17:26
[2018-08-15] MEDS: ATORVASTATIN 20 MG TAB PO SCH (20:50)
[2018-08-15] MEDS: ZOLPIDEM 5 MG TAB PO PRN (20:51)
[2018-08-15] MEDS: INSULIN GLARGINE [LANTus] (100 UNITS/ML) SYG SC SCH (20:57)
[2018-08-16] VITALS (10 sets, daily range): BP systolic 102–115; BP diastolic 54–59; PULSE 64–104; RESP 17–20
[2018-08-16] MEDS: HYDROCODONE/APAP (5/325) TAB PO PRN ×3 (00:30→17:46)
[2018-08-16] MEDS: ACCU-CHEK XX SCH (02:00)
[2018-08-16] MEDS: PANTOPRAZOLE (EC) 40 MG TAB PO SCH (06:31)
[2018-08-16] MEDS: LEVOTHYROXINE 50 MCG TAB PO SCH (06:31)
[2018-08-16] MEDS: INSULIN ASPART [NOVOLOG] 3 ML PEN SC SCH ×7 (07:00→20:31)
[2018-08-16] MEDS: POLYETHYLENE GLYCOL 17 GM PACKET PO SCH (08:16)
[2018-08-16] MEDS: CYANOCOBALAMIN 100 MCG TAB PO SCH (08:16)
[2018-08-16] MEDS: CLOPIDOGREL 75 MG TAB PO SCH (08:16)
[2018-08-16] MEDS: DOCUSATE SODIUM 100 MG CAP PO SCH ×2 (08:16→20:20)
[2018-08-16] MEDS: METOPROLOL (XL) 25 MG TAB PO SCH ×2 (08:17→20:21)
[2018-08-16] MEDS: ASPIRIN (EC) 81 MG TAB PO SCH (08:17)
[2018-08-16] MEDS: ENOXAPARIN 30 MG/0.3 ML SYG SC SCH (08:54)
[2018-08-16] MEDS: SOD CHLORIDE 0.9% 1,000 ML IV SCH ×2 (10:00→20:43)
[2018-08-16] MEDS: ALPRAZOLAM 0.25 MG TAB PO PRN ×2 (10:34→23:44)
--- NOTE | 2018-08-16 11:09 | CONS ---
Assessment/Plan Assessment/Plan Assessment/Plan (Daily) Assessment and recommendations; 1. Patient admitted with right upper quadrant pain liver biopsy showing metastatic cancer. 2. Moderate right pleural effusion, possibly in etiology. Status post paracentesis yesterday. Cytology is pending. 3. History of diabetes, hypothyroidism and hypertension. Continue current supportive care. Consider discharge. Follow-up as an outpatient in oncology clinic. Prognosis appears guarded. Consultation Date/Type/Reason Admit Date/Time Jul 29, 2018 at 06:16 Initial Consult Date 08/15/18 Type of Consult Pulmonary Patient is a 68-year-old lady who came into the hospital on the second of this month with complaints of shortness of breath. Upon evaluation a chest x-ray was done which is showing a right pleural effusion. Further work-up revealed a liver mass which is showing metastatic carcinoma. Patient denies any shortness of breath, chest pain, wheezing, sputum production hemoptysis. Has complained of weight loss. By the time I saw her, patient was completely awake and alert. And did not appear to be in any distress whatsoever. Past medical history; 1. Recently diagnosed metastatic hepatic carcinoma. 2. Chronic renal insufficiency. 3. History of diabetes and hypothyroidism. 4. History of left corneal opacity. Medications; reviewed. Allergies; Levaquin. Family history; she lives with HER-2 sons. No history of any malignancy. 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 Review of systems; denies any headache, seizures, visual changes. Any dysphagia. Denies any chest pain, complains of very mild shortness of breath. Denies any coughing, sputum production or hemoptysis. Denies any abdominal pain, any melena hematochezia complains of weight loss. Denies any edema. Complains of very mild orthopnea. Denies any joint symptoms. General exam; elderly female, awake alert. Currently no distress. Requesting Provider: SANDI MURDOCK NP Date/Time of Note DATE: 08/16/18 TIME: 11:07 24 HR Interval Summary Free Text/Dictation Patient's condition is stable. Underwent right thoracentesis yesterday. General exam; elderly lady, awake alert, currently in no distress. Exam/Review of Systems Exam Vitals Vital Signs Date Temp Pulse Resp B/P (MAP) Pulse Ox O2 O2 Flow FiO2 Time Delivery Rate 08/16/18 Nasal 2.0 08:16 Cannula 08/16/18 73 08:10 08/16/18 97.7 20 115/57 99 07:54 (76) 08/15/18 27 16:25 Intake and Output 08/15/18 08/15/18 08/16/18 1515:00 23:00 07:00 IntakeIntake Total 150 ml 750 ml 300 ml OutputOutput Total 1050 ml BalanceBalance 150 ml -300 ml 300 ml Exam H EENT exam; supple neck, no JVD. No lymphadenopathy. Midline trachea. No thyromegaly. Patient is edentulous. No neck masses. Chest exam; diminished breath sounds right lower lobe. Rest of the lung sullivan are fairly clear. S1-S2 audible, no murmurs. Regular rhythm. Abdomen exam; soft, no organomegaly. Scaphoid. Bowel sounds audible. Extremity exam; no peripheral edema clubbing. DIRECTOR OF CURRICULUM exam; patient has no focal motor deficit. Results Result Diagram: 08/16/18 0510 08/16/18 0510 Results 24hrs Laboratory Tests Test 08/15/18 11:41 08/15/18 12:12 08/15/18 17:13 08/15/18 20:34 Pathologist YES Review (Hematolog y) Body Fluid Type THORACENTESIS FL UID Body Fluid Volume 700.0 Body Fluid Color CANDY Body Fluid TURBID Appearance Body Fluid WBC 302 Body Fluid RBC 15412 (Auto) Body Fluid 15.3 Polynuclear WBCs (%) Body Fluid 84.7 Mononuclear Cells % Auto Body Fluid 1988 Lactate Dehydroge nase Bedside Glucose 93 209 120 Test 08/16/18 02:09 08/16/18 05:10 08/16/18 07:05 08/16/18 08:13 Bedside Glucose 107 81 124 White Blood Count 11.2 H Red Blood Count 2.77 L Hemoglobin 7.9 L Hematocrit 24.3 L Mean Corpuscular 87.7 Volume Mean Corpuscular 28.5 L Hemoglobin Mean Corpuscular 32.5 Hemoglobin Concen t Red Cell 16.4 H Distribution Width Platelet Count 751 H Mean Platelet 9.3 Volume Immature 0.500 H Granulocytes % Neutrophils % 63.1 Lymphocytes % 20.4 Monocytes % 14.5 H Eosinophils % 1.3 Basophils % 0.2 Nucleated Red 0.2 H Blood Cells % Immature 0.060 H Granulocytes # Neutrophils # 7.1 Lymphocytes # 2.3 Monocytes # 1.6 H Eosinophils # 0.2 Basophils # 0.0 Nucleated Red 0.0 Blood Cells # Sodium Level 137 Potassium Level 4.4 Chloride Level 107 Carbon Dioxide 21 Level Anion Gap 9 # Blood Urea 47 H Nitrogen Creatinine 1.24 H Est Glomerular 43 L Filtrat Rate mL/min Glucose Level 87 Calcium Level 8.7 Medications Medication Current Medications IV Flush (NS 3 ml) 3 ml PER PROTOCOL IV Last administered on 08/05/18 09:07; Admin Dose 3 ML; Start 07/29/18 at 06:30 Ondansetron HCl (Zofran Inj) 4 mg Q6H PRN IV NAUSEA/VOMITING Last administered on 08/11/18 04:32; Admin Dose 4 MG; Start 07/29/18 at 06:30 Acetaminophen/ Hydrocodone Bitart ([place] (5/325)) 1 tab Q6H PRN PO .MOD PAIN 4- 6 Last administered on 08/16/18 09:03; Admin Dose 1 TAB; Start 07/29/18 at 06:30 Pantoprazole (Protonix Tab) 40 mg DAILY@06 PO Last administered on 08/16/18 06:31; Admin Dose 40 MG; Start 07/29/18 at 06:30 Enoxaparin Sodium (Lovenox) 30 mg DAILY SC Last administered on 08/16/18 08:54; Admin Dose 30 MG; Start 07/29/18 at 09:00 Diagnostic Test (Pha) (Accu-Chek) 1 ea 02 XX Last administered on 08/16/18at 0 2:00; Admin Dose 1 EA; Start 07/30/18 at 02:00 Acetaminophen (Tylenol Tab) 650 mg Q6H PRN PO .PAIN 1-3 OR TEMP Last administered on 08/12/18 16:11; Admin Dose 650 MG; Start 07/29/18 at 07:00 Eye Lubricant (Akwa Oint) 1 applic Q1H PRN BOTH EYES DRY EYES; Start 07/29/18 at 08:00 Aspirin (Halfprin) 81 mg DAILY PO Last administered on 08/16/18 08:17; Admin Dose 81 MG; Start 07/29/18 at 09:00 Atorvastatin Calcium (Lipitor) 20 mg QHS PO Last administered on 6/19/19at 20:50; Admin Dose 20 MG; Start 07/29/18 at 21:00 Clopidogrel Bisulfate (plaVIX) 75 mg DAILY PO Last administered on 08/16/18at 08:16; Admin Dose 75 MG; Start 07/29/18 at 09:00 Cyanocobalamin (Vitamin B12) 50 mcg DAILY PO Last administered on 08/16/18at 08:16; Admin Dose 50 MCG; Start 07/29/18 at 09:00 Levothyroxine Sodium (Synthroid) 50 mcg BEFORE BREAKFAST PO Last administered on 08/16/18at 06:31; Admin Dose 50 MCG; Start 07/29/18 at 07:00 Metoprolol Succinate (Toprol Xl) 25 mg BID PO Last administered on 08/16/18at 08:17; Admin Dose 25 MG; Start 07/29/18 at 09:00 Polyethyl Glycol/ Propylene Glycol (Systane 0.3-0.4% Eye Drops) 1 drop Q4H PRN BOTH EYES DRY EYES; Start 07/29/18 at 08:00 Albuterol (Ventolin Hfa) 2 puff Q4H RESP THERAPY PRN INH WHEEZING; Start 07/29/18 at 09:00 Miscellaneous Information 1 ea NOTE XX ; Start 07/29/18 at 07:00 Glucose (Glutose) 15 gm Q15M PRN PO DECREASED GLUCOSE; Start 07/29/18 at 07:00 Glucose (Glutose) 22.5 gm Q15M PRN PO DECREASED GLUCOSE; Start 07/29/18 at 07:00 Dextrose (D50w Syringe) 25 ml Q15M PRN IV DECREASED GLUCOSE; Start 07/29/18 at 07:00 Dextrose (D50w Syringe) 50 ml Q15M PRN IV DECREASED GLUCOSE; Start 07/29/18 at 07:00 Glucagon (Glucagen) 1 mg Q15M PRN IM DECREASED GLUCOSE; Start 07/29/18 at 07:00 Glucose (Glutose) 15 gm Q15M PRN BUCCAL DECREASED GLUCOSE; Start 07/29/18 at 07:00 Alprazolam (Xanax) 0.25 mg Q8H PRN PO ANXIETY Last administered on 08/16/18at 10:34; Admin Dose 0.25 MG; Start 07/29/18 at 12:30 Polyethylene Glycol (Miralax) 17 gm DAILY PO Last administered on 08/16/18 08:16; Admin Dose 17 GM; Start 07/29/18 at 12:30 Docusate Sodium (Colace) 100 mg BID PO Last administered on 08/16/18 08:16; Admin Dose 100 MG; Start 07/31/18 at 21:00 Magnesium Hydroxide (Milk Of Mag) 30 ml Q12H PRN PO STOMACH UPSET/CRAMPING Last administered on 07/31/18 21:28; Admin Dose 30 ML; Start 07/31/18 at 20:00 Al Hydrox/Mg Hydrox/Simethicone (Mag-Al Plus) 30 ml Q6H PRN PO GASTROINTESTINAL UPSET Last administered on 08/15/18 14:13; Admin Dose 30 ML; Start 08/03/18 at 17:30 Insulin Aspart (Novolog Insulin Pen) (Adult SC Insulin - Moder... AC MEALS AND BEDTIME SC Last administered on 08/15/18 17:59; Admin Dose 4 UNIT; Start 08/08/18 at 17:30 Insulin Glargine (Lantus) 8 units DAILY@2000 SC Last administered on 08/15/18 20:57; Admin Dose 8 UNITS; Start 08/09/18 at 20:00 Insulin Aspart (Novolog Insulin Pen) 3 unit WITH MEALS SC Last administered on 08/16/18 08:53; Admin Dose 3 UNIT; Start 08/09/18 at 18:00 Zolpidem Tartrate (Ambien) 5 mg HS PRN PO INSOMNIA Last administered on 08/15/18 20:51; Admin Dose 5 MG; Start 08/12/18 at 21:30 Albuterol/ Ipratropium (Duoneb) 3 ml Q2H RESP THERAPY PRN HHN sob; Start 08/14/18 at 12:00 Sodium Chloride 1,000 ml @ 50 mls/hr Q20H IV Last administered on 08/15/18 14:13; Admin Dose 50 MLS/HR; Start 08/15/18 at 14:00 MIKEY FAGAN Aug 16, 2018 11:09
--- NOTE | 2018-08-16 11:24 | PN ---
DATE: 08/16/2018 SUBJECTIVE: The patient is stable, no events overnight. No fevers, chills, nausea, vomiting. OBJECTIVE: VITAL SIGNS: Blood pressure 115/56, respirations 20, pulse 83, temperature 97.7. HEENT: Head is normocephalic. NECK: Supple. HEART: Regular rate. LUNGS: Show diminished breath sounds at the base. ABDOMEN: Soft, nontender to palpation without rebound or guarding. EXTREMITIES: Negative for clubbing, cyanosis. Trace edema. DERMATOLOGIC: No rashes. MUSCULOSKELETAL: No joint effusion. NEUROLOGIC: No focal deficits. MEDICATIONS: The patient's medications have been reviewed. LABORATORY DATA: Has been reviewed. IMAGING STUDIES: Including chest x-ray, CT scan was reviewed. ASSESSMENT AND PLAN: 1. Nonoliguric acute kidney injury with previous baseline creatinine of 0.9 mg/dL. Etiology of acut e kidney injury is secondary to hemodynamics. The patient's renal function has improved with gentle IV hydration. At this point, continue current treatment plans, supportive care, renally dose all med s. The patient is at moderate risk for contrast-associated nephropathy. Risks and benefits were exp lained to the patient. Will continue to monitor closely. 2. Anemia. Monitor hemoglobin and hematocrit levels. 3. Mineral bone disorder, monitor calcium and phosphorus levels. 4. Hypokalemia, improved. 5. Venous insufficiency. Continue to monitor. 6. Coronary artery disease. Positive stress test. The patient is pending possible cardiac catheter ization versus angiogram. Continue to monitor. Follow up with cardiology. Continue medical managem ent. 7. Hypothyroidism. Continue Synthroid. 8. Diabetes. Continue current insulin regimen. 9. Pleural effusion, status post thoracentesis. 10. Liver mass, status post biopsy with findings consistent with metastatic malignant tumor, carcino sarcoma. Continue to monitor. Follow up with primary team, follow up with oncology. Dictated By: JACOB BROCK DO NR/NTS Conf#: [id number] DID#: [id number] CC: SANDRA AGUILERA MD; TAN MAIER MD;*EndCC*
--- NOTE | 2018-08-16 11:29 | CONS ---
Assessment/Plan Assessment/Plan Hospital Course (Demo Recall) IMP: 1.Preop-neg trop .3 including this am. NL EF by echo. Lexiscan with possible distal anterior ischemia. NL EF 2.abnl ecg-ECG today with inferior ST elevation but with normal concaviity and Q 's isolated to lead 3 No chest pain or sob/neg trop this am. ? pericarditits. NL EF by echo this admit. multiple negative troponins and no chest pain 3.Uterine cancer 4.DM 5.HTN 6.HL Recc -Tele -Continue asa/plavix/toprol/statin -ongoing renal f/u -f/u pathology from Bx -reccommend either cardiac cath or CTA to further assess for sig obstructve cad and given recent flood in cathlab would thus attempt to proceed with CTA and have discussed with renal who is attempting to optimize creatnine prior to proceeding and thus will await additional 24hours at this time Consultation Date/Type/Reason Admit Date/Time Jul 29, 2018 at 06:16 Initial Consult Date 08/10/18 Type of Consult Cardiology Reason for Consultation preop Requesting Provider: SANDI MURDOCK NP Date/Time of Note DATE: 08/16/18 TIME: 11:17 Exam/Review of Systems Vital Signs Vitals Vital Signs Date Temp Pulse Resp B/P (MAP) Pulse Ox O2 O2 Flow FiO2 Time Delivery Rate 08/16/18 97.9 73 20 102/54 95 Room Air 11:15 (70) 08/16/18 2.0 08:16 08/15/18 27 16:25 Intake and Output 08/15/18 08/15/18 08/16/18 1515:00 23:00 07:00 IntakeIntake Total 150 ml 750 ml 300 ml OutputOutput Total 1050 ml BalanceBalance 150 ml -300 ml 300 ml Exam Exam Review of Systems: CONSTITUTIONAL: No fevers, chills. PULMONARY: No sob CARDIOVASCULAR: No chest pain/palpitations GASTROINTESTINAL: No nausea/vomiting. GENITOURINARY: No hematuria/dysuria. MUSCULOSKELETAL: No myagias/arthalgias. PSYCHIATRIC: The patient denies depression. NEUROLOGIC: No weakness Constitutional: alert Psych: no complaints Head: normocephalic ENMT: mucosa pink and moist Neck: supple, jvd (9 cm water) Respiratory: diminished breath sounds (at bases/B) Cardiovascular: regular rate and rhythm Gastrointestinal: soft, non-tender Musculoskeletal: muscle tone (normal) Extremities: edema (none) Neurological: other (No focal deficits) Labs Result Diagram: 08/16/18 0510 08/16/18 0510 Results 24hrs Laboratory Tests Test 08/15/18 11:41 08/15/18 12:12 08/15/18 17:13 08/15/18 20:34 Pathologist YES Review (Hematolog y) Body Fluid Type THORACENTESIS FL UID Body Fluid Volume 700.0 Body Fluid Color CANDY Body Fluid TURBID Appearance Body Fluid WBC 302 Body Fluid RBC 37073 (Auto) Body Fluid 15.3 Polynuclear WBCs (%) Body Fluid 84.7 Mononuclear Cells % Auto Body Fluid 1988 Lactate Dehydroge nase Bedside Glucose 93 209 120 Test 08/16/18 02:09 08/16/18 05:10 08/16/18 07:05 08/16/18 08:13 Bedside Glucose 107 81 124 White Blood Count 11.2 H Red Blood Count 2.77 L Hemoglobin 7.9 L Hematocrit 24.3 L Mean Corpuscular 87.7 Volume Mean Corpuscular 28.5 L Hemoglobin Mean Corpuscular 32.5 Hemoglobin Concen t Red Cell 16.4 H Distribution Width Platelet Count 751 H Mean Platelet 9.3 Volume Immature 0.500 H Granulocytes % Neutrophils % 63.1 Lymphocytes % 20.4 Monocytes % 14.5 H Eosinophils % 1.3 Basophils % 0.2 Nucleated Red 0.2 H Blood Cells % Immature 0.060 H Granulocytes # Neutrophils # 7.1 Lymphocytes # 2.3 Monocytes # 1.6 H Eosinophils # 0.2 Basophils # 0.0 Nucleated Red 0.0 Blood Cells # Sodium Level 137 Potassium Level 4.4 Chloride Level 107 Carbon Dioxide 21 Level Anion Gap 9 # Blood Urea 47 H Nitrogen Creatinine 1.24 H Est Glomerular 43 L Filtrat Rate mL/min Glucose Level 87 Calcium Level 8.7 Test 08/16/18 11:10 Bedside Glucose 157 Medications Medications Current Medications IV Flush (NS 3 ml) 3 ml PER PROTOCOL IV Last administered on 08/05/18at 09:07; Admin Dose 3 ML; Start 07/29/18 at 06:30 Ondansetron HCl (Zofran Inj) 4 mg Q6H PRN IV NAUSEA/VOMITING Last administered on 08/11/18 04:32; Admin Dose 4 MG; Start 07/29/18 at 06:30 Acetaminophen/ Hydrocodone Bitart ([place] (5/325)) 1 tab Q6H PRN PO .MOD PAIN 4- 6 Last administered on 08/16/18 09:03; Admin Dose 1 TAB; Start 07/29/18 at 06:30 Pantoprazole (Protonix Tab) 40 mg DAILY@06 PO Last administered on 08/16/18 06:31; Admin Dose 40 MG; Start 07/29/18 at 06:30 Enoxaparin Sodium (Lovenox) 30 mg DAILY SC Last administered on 08/16/18 08:54; Admin Dose 30 MG; Start 07/29/18 at 09:00 Diagnostic Test (Pha) (Accu-Chek) 1 ea 02 XX Last administered on 08/16/18 02:00; Admin Dose 1 EA; Start 07/30/18 at 02:00 Acetaminophen (Tylenol Tab) 650 mg Q6H PRN PO .PAIN 1-3 OR TEMP Last administered on 08/12/18 16:11; Admin Dose 650 MG; Start 07/29/18 at 07:00 Eye Lubricant (Akwa Oint) 1 applic Q1H PRN BOTH EYES DRY EYES; Start 07/29/18 at 08:00 Aspirin (Halfprin) 81 mg DAILY PO Last administered on 08/16/18 08:17; Admin Dose 81 MG; Start 07/29/18 at 09:00 Atorvastatin Calcium (Lipitor) 20 mg QHS PO Last administered on 08/15/18 20:50; Admin Dose 20 MG; Start 07/29/18 at 21:00 Clopidogrel Bisulfate (plaVIX) 75 mg DAILY PO Last administered on 08/16/18 08:16; Admin Dose 75 MG; Start 07/29/18 at 09:00 Cyanocobalamin (Vitamin B12) 50 mcg DAILY PO Last administered on 08/16/18 08:16; Admin Dose 50 MCG; Start 07/29/18 at 09:00 Levothyroxine Sodium (Synthroid) 50 mcg BEFORE BREAKFAST PO Last administered on 08/16/18 06:31; Admin Dose 50 MCG; Start 07/29/18 at 07:00 Metoprolol Succinate (Toprol Xl) 25 mg BID PO Last administered on 08/16/18at 08:17; Admin Dose 25 MG; Start 07/29/18 at 09:00 Polyethyl Glycol/ Propylene Glycol (Systane 0.3-0.4% Eye Drops) 1 drop Q4H PRN BOTH EYES DRY EYES; Start 07/29/18 at 08:00 Albuterol (Ventolin Hfa) 2 puff Q4H RESP THERAPY PRN INH WHEEZING; Start 07/29/18 at 09:00 Miscellaneous Information 1 ea NOTE XX ; Start 07/29/18 at 07:00 Glucose (Glutose) 15 gm Q15M PRN PO DECREASED GLUCOSE; Start 07/29/18 at 07:00 Glucose (Glutose) 22.5 gm Q15M PRN PO DECREASED GLUCOSE; Start 07/29/18 at 07:00 Dextrose (D50w Syringe) 25 ml Q15M PRN IV DECREASED GLUCOSE; Start 07/29/18 at 07:00 Dextrose (D50w Syringe) 50 ml Q15M PRN IV DECREASED GLUCOSE; Start 07/29/18 at 07:00 Glucagon (Glucagen) 1 mg Q15M PRN IM DECREASED GLUCOSE; Start 07/29/18 at 07:00 Glucose (Glutose) 15 gm Q15M PRN BUCCAL DECREASED GLUCOSE; Start 07/29/18 at 07:00 Alprazolam (Xanax) 0.25 mg Q8H PRN PO ANXIETY Last administered on 08/16/18at 10:34; Admin Dose 0.25 MG; Start 07/29/18 at 12:30 Polyethylene Glycol (Miralax) 17 gm DAILY PO Last administered on 08/16/18at 08:16; Admin Dose 17 GM; Start 07/29/18 at 12:30 Docusate Sodium (Colace) 100 mg BID PO Last administered on 08/16/18at 08:16; Admin Dose 100 MG; Start 07/31/18 at 21:00 Magnesium Hydroxide (Milk Of Mag) 30 ml Q12H PRN PO STOMACH UPSET/CRAMPING Last administered on 07/31/18at 21:28; Admin Dose 30 ML; Start 07/31/18 at 20:00 Al Hydrox/Mg Hydrox/Simethicone (Mag-Al Plus) 30 ml Q6H PRN PO GASTROINTESTINAL UPSET Last administered on 08/15/18at 14:13; Admin Dose 30 ML; Start 08/03/18 at 17:30 Insulin Aspart (Novolog Insulin Pen) (Adult SC Insulin - Moder... AC MEALS AND BEDTIME SC Last administered on 08/16/18 11:13; Admin Dose 2 UNIT; Start 08/08/18 at 17:30 Insulin Glargine (Lantus) 8 units DAILY@2000 SC Last administered on 08/15/18 20:57; Admin Dose 8 UNITS; Start 08/09/18 at 20:00 Insulin Aspart (Novolog Insulin Pen) 3 unit WITH MEALS SC Last administered on 08/16/18 11:12; Admin Dose 3 UNIT; Start 08/09/18 at 18:00 Zolpidem Tartrate (Ambien) 5 mg HS PRN PO INSOMNIA Last administered on 08/15/18 20:51; Admin Dose 5 MG; Start 08/12/18 at 21:30 Albuterol/ Ipratropium (Duoneb) 3 ml Q2H RESP THERAPY PRN HHN sob; Start 08/14/18 at 12:00 Sodium Chloride 1,000 ml @ 50 mls/hr Q20H IV Last administered on 08/15/18 14:13; Admin Dose 50 MLS/HR; Start 08/15/18 at 14:00 TAN LIRIANO Aug 16, 2018 11:29
--- NOTE | 2018-08-16 14:23 | PN ---
Date/Time of Note Date/Time of Note DATE: 08/16/18 TIME: 14:16 Assessment/Plan VTE Prophylaxis Risk score (from Ns)>0 risk: 6 SCD applied (from Ns): No SCD contraindicated: other Pharmacological prophylaxis: LMWH Lines/Catheters IV [facility]ter [facility]from [facility] Peripheral IV Urinary Cath still in place: No Assessment/Plan Hospital Course 1. 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 - May benefit from a debulking surgery because of the large pelvic mass - Plan for surgical intervention once more stable 2. Bilateral lower extremity edema. - suspect multifactorial including underlying diastolic heart failure, and venous insufficiency. - diuresis as renal function tolerates 3. Peripheral artery disease. - vascular surgeon following - Continue aspirin plus Plavix. - Continue statins. 4. Diabetes mellitus. - Hemoglobin A1c 6.3. - Continue sliding scale insulin along with pre-meal insulin and basal. 5. Elevated CA-19-9. - MRI of the abdomen showing multiple parenchymal and capsular liver lesions. - S/P percutaneous biopsy on 08/09/2018 with pathology: Mass, right lobe of liver, CT-guided core needle biopsies with touch imprints: -- Metastatic malignant mesodermal mixed tumor (carcinosarcoma). 6. Constipation. - Continue bowel regimen. - GI following 7. Hypothyroidism. - Continue Synthroid. 8. Acute kidney injury. - orchid superintendent following 9. Normocytic anemia. - Monitor H&H closely. - Continue iron supplements. 10. s/p Stress test 19 with small partially reversible perfusion defect in the distal anterior wall - possible heart cath pending renal function 11. Dyspnea - noted with large right pleural effusion s/p thoracentesis with 750ml rem niru 6..19 - follow up pleural studies. - CXR s/p thoracentesis: Mild interval decrease in right pleural fluid with mildly improved aeration of the right lung. Moderate residual pleural effusion with associated atelectasis/consolidation of the right middle and lower lobes and perihilar right upper lobe infiltrates remains. - frame nailer following Disposition and plan: At present patient is not a candidate for chemotherapy. Tentative plan for pelvic surgery for removing uterine mass once more medically stable. Medical optimization in progress. Was reported patient's son Rk is seeking for aggressive therapy regarding uterine mass. Patient is status post Lexiscan stress test on August 13, 2018 showing skin to graphic abnormalities consistent with a small partially reversible perfusion defect in the distal anterior wall. Tentative plan for CTA. Discussed case and plan with oly Beckman Discussed POC with Dr. Allen Result Diagram: 08/16/18 0510 08/16/18 0510 Results 24hrs Laboratory Tests Test 08/15/18 17:13 08/15/18 20:34 08/16/18 02:09 08/16/18 05:10 Bedside Glucose 209 120 107 White Blood Count 11.2 H Red Blood Count 2.77 L Hemoglobin 7.9 L Hematocrit 24.3 L Mean Corpuscular 87.7 Volume Mean Corpuscular 28.5 L Hemoglobin Mean Corpuscular 32.5 Hemoglobin Concent Red Cell 16.4 H Distribution Width Platelet Count 751 H Mean Platelet Volume 9.3 Immature 0.500 H Granulocytes % Neutrophils % 63.1 Lymphocytes % 20.4 Monocytes % 14.5 H Eosinophils % 1.3 Basophils % 0.2 Nucleated Red Blood 0.2 H Cells % Immature 0.060 H Granulocytes # Neutrophils # 7.1 Lymphocytes # 2.3 Monocytes # 1.6 H Eosinophils # 0.2 Basophils # 0.0 Nucleated Red Blood 0.0 Cells # Sodium Level 137 Potassium Level 4.4 Chloride Level 107 Carbon Dioxide Level 21 Anion Gap 9 # Blood Urea Nitrogen 47 H Creatinine 1.24 H Est Glomerular 43 L Filtrat Rate mL/min Glucose Level 87 Calcium Level 8.7 Test 08/16/18 07:05 08/16/18 08:13 08/16/18 11:10 Bedside Glucose 81 124 157 Subjective 24 Hr Interval Summary Free Text/Dictation reports better breathing. son at bedside. Exam/Review of Systems Exam Vitals Vital Signs Date Temp Pulse Resp B/P (MAP) Pulse Ox O2 O2 Flow FiO2 Time Delivery Rate 08/16/18 67 12:14 08/16/18 97.9 20 102/54 95 Room Air 11:15 (70) 08/16/18 2.0 08:16 08/15/18 27 16:25 Intake and Output 08/15/18 08/15/18 08/16/18 1515:00 23:00 07:00 IntakeIntake Total 150 ml 750 ml 300 ml OutputOutput Total 1050 ml BalanceBalance 150 ml -300 ml 300 ml Constitutional: alert Psych: anxiety Head: normocephalic Neck: supple, non-tender Respiratory: diminished breath sounds (right lung field ) Gastrointestinal: soft, non-tender Musculoskeletal: swelling (ble ) Neurological: nl mental status, nl speech Results Results 24hrs Laboratory Tests Test 08/15/18 17:13 08/15/18 20:34 08/16/18 02:09 08/16/18 05:10 Bedside Glucose 209 120 107 White Blood Count 11.2 H Red Blood Count 2.77 L Hemoglobin 7.9 L Hematocrit 24.3 L Mean Corpuscular 87.7 Volume Mean Corpuscular 28.5 L Hemoglobin Mean Corpuscular 32.5 Hemoglobin Concent Red Cell 16.4 H Distribution Width Platelet Count 751 H Mean Platelet Volume 9.3 Immature 0.500 H Granulocytes % Neutrophils % 63.1 Lymphocytes % 20.4 Monocytes % 14.5 H Eosinophils % 1.3 Basophils % 0.2 Nucleated Red Blood 0.2 H Cells % Immature 0.060 H Granulocytes # Neutrophils # 7.1 Lymphocytes # 2.3 Monocytes # 1.6 H Eosinophils # 0.2 Basophils # 0.0 Nucleated Red Blood 0.0 Cells # Sodium Level 137 Potassium Level 4.4 Chloride Level 107 Carbon Dioxide Level 21 Anion Gap 9 # Blood Urea Nitrogen 47 H Creatinine 1.24 H Est Glomerular 43 L Filtrat Rate mL/min Glucose Level 87 Calcium Level 8.7 Test 08/16/18 07:05 08/16/18 08:13 08/16/18 11:10 Bedside Glucose 81 124 157 Medications Medication Current Medications IV Flush (NS 3 ml) 3 ml PER PROTOCOL IV Last administered on 08/05/18 09:07; Admin Dose 3 ML; Start 07/29/18 at 06:30 Ondansetron HCl (Zofran Inj) 4 mg Q6H PRN IV NAUSEA/VOMITING Last administered on 08/11/18 04:32; Admin Dose 4 MG; Start 07/29/18 at 06:30 Acetaminophen/ Hydrocodone Bitart ([place] (5/325)) 1 tab Q6H PRN PO .MOD PAIN 4- 6 Last administered on 08/16/18 09:03; Admin Dose 1 TAB; Start 07/29/18 at 06:30 Pantoprazole (Protonix Tab) 40 mg DAILY@06 PO Last administered on 08/16/18 06:31; Admin Dose 40 MG; Start 07/29/18 at 06:30 Enoxaparin Sodium (Lovenox) 30 mg DAILY SC Last administered on 08/16/18 08:54; Admin Dose 30 MG; Start 07/29/18 at 09:00 Diagnostic Test (Pha) (Accu-Chek) 1 ea 02 XX Last administered on 08/16/18 02:00; Admin Dose 1 EA; Start 07/30/18 at 02:00 Acetaminophen (Tylenol Tab) 650 mg Q6H PRN PO .PAIN 1-3 OR TEMP Last administered on 08/12/18 16:11; Admin Dose 650 MG; Start 07/29/18 at 07:00 Eye Lubricant (Akwa Oint) 1 applic Q1H PRN BOTH EYES DRY EYES; Start 07/29/18 at 08:00 Aspirin (Halfprin) 81 mg DAILY PO Last administered on 08/16/18 08:17; Admin Dose 81 MG; Start 07/29/18 at 09:00 Atorvastatin Calcium (Lipitor) 20 mg QHS PO Last administered on 08/15/18 20:50; Admin Dose 20 MG; Start 07/29/18 at 21:00 Clopidogrel Bisulfate (plaVIX) 75 mg DAILY PO Last administered on 08/16/18 08:16; Admin Dose 75 MG; Start 07/29/18 at 09:00 Cyanocobalamin (Vitamin B12) 50 mcg DAILY PO Last administered on 08/16/18 08:16; Admin Dose 50 MCG; Start 07/29/18 at 09:00 Levothyroxine Sodium (Synthroid) 50 mcg BEFORE BREAKFAST PO Last administered on 08/16/18 06:31; Admin Dose 50 MCG; Start 07/29/18 at 07:00 Metoprolol Succinate (Toprol Xl) 25 mg BID PO Last administered on 08/16/18 08:17; Admin Dose 25 MG; Start 07/29/18 at 09:00 Polyethyl Glycol/ Propylene Glycol (Systane 0.3-0.4% Eye Drops) 1 drop Q4H PRN BOTH EYES DRY EYES; Start 07/29/18 at 08:00 Albuterol (Ventolin Hfa) 2 puff Q4H RESP THERAPY PRN INH WHEEZING; Start 07/29/18 at 09:00 Miscellaneous Information 1 ea NOTE XX ; Start 07/29/18 at 07:00 Glucose (Glutose) 15 gm Q15M PRN PO DECREASED GLUCOSE; Start 07/29/18 at 07:00 Glucose (Glutose) 22.5 gm Q15M PRN PO DECREASED GLUCOSE; Start 07/29/18 at 07:00 Dextrose (D50w Syringe) 25 ml Q15M PRN IV DECREASED GLUCOSE; Start 07/29/18 at 07:00 Dextrose (D50w Syringe) 50 ml Q15M PRN IV DECREASED GLUCOSE; Start 07/29/18 at 07:00 Glucagon (Glucagen) 1 mg Q15M PRN IM DECREASED GLUCOSE; Start 07/29/18 at 07:00 Glucose (Glutose) 15 gm Q15M PRN BUCCAL DECREASED GLUCOSE; Start 07/29/18 at 07:00 Alprazolam (Xanax) 0.25 mg Q8H PRN PO ANXIETY Last administered on 08/16/18at 10:34; Admin Dose 0.25 MG; Start 07/29/18 at 12:30 Polyethylene Glycol (Miralax) 17 gm DAILY PO Last administered on 08/16/18 08:16; Admin Dose 17 GM; Start 07/29/18 at 12:30 Docusate Sodium (Colace) 100 mg BID PO Last administered on 08/16/18 08:16; Admin Dose 100 MG; Start 07/31/18 at 21:00 Magnesium Hydroxide (Milk Of Mag) 30 ml Q12H PRN PO STOMACH UPSET/CRAMPING Last administered on 07/31/18at 21:28; Admin Dose 30 ML; Start 07/31/18 at 20:00 Al Hydrox/Mg Hydrox/Simethicone (Mag-Al Plus) 30 ml Q6H PRN PO GASTROINTESTINAL UPSET Last administered on 08/15/18at 14:13; Admin Dose 30 ML; Start 08/03/18 at 17:30 Insulin Aspart (Novolog Insulin Pen) (Adult SC Insulin - Moder... AC MEALS AND BEDTIME SC Last administered on 08/16/18at 11:13; Admin Dose 2 UNIT; Start 08/08/18 at 17:30 Insulin Glargine (Lantus) 8 units DAILY@2000 SC Last administered on 08/15/18at 20:57; Admin Dose 8 UNITS; Start 08/09/18 at 20:00 Insulin Aspart (Novolog Insulin Pen) 3 unit WITH MEALS SC Last administered on 08/16/18at 11:12; Admin Dose 3 UNIT; Start 08/09/18 at 18:00 Zolpidem Tartrate (Ambien) 5 mg HS PRN PO INSOMNIA Last administered on 08/15/18at 20:51; Admin Dose 5 MG; Start 08/12/18 at 21:30 Albuterol/ Ipratropium (Duoneb) 3 ml Q2H RESP THERAPY PRN HHN sob; Start 08/14/18 at 12:00 Sodium Chloride 1,000 ml @ 50 mls/hr Q20H IV Last administered on 08/15/18at 14:13; Admin Dose 50 MLS/HR; Start 08/15/18 at 14:00 FIDE MAGUIRE NP Aug 16, 2018 14:23
--- NOTE | 2018-08-16 15:00 | PN ---
Date/Time of Note Date/Time of Note DATE: 08/16/18 TIME: 14:56 Assessment/Plan VTE Prophylaxis Risk score (from Ns)>0 risk: 6 SCD applied (from Ns): No SCD contraindicated: other (per primary MD) Pharmacological prophylaxis: LMWH Lines/Catheters IV C[facility] Type (from [facility]): Peripheral IV Urinary Cath still in place: No Assessment/Plan Assessment/Plan Pt seems less confused and calmer than before. Cardiac evaluation per Dr. Guzmán. She also needs nutritional support to continue. She also needs to get more ambulation when okay with cardiology. Surgery is delayed until the medical status is improved. Result Diagram: 08/16/18 0510 08/16/18 0510 Results 24hrs Laboratory Tests Test 08/15/18 17:13 08/15/18 20:34 08/16/18 02:09 08/16/18 05:10 Bedside Glucose 209 120 107 White Blood Count 11.2 H Red Blood Count 2.77 L Hemoglobin 7.9 L Hematocrit 24.3 L Mean Corpuscular 87.7 Volume Mean Corpuscular 28.5 L Hemoglobin Mean Corpuscular 32.5 Hemoglobin Concent Red Cell 16.4 H Distribution Width Platelet Count 751 H Mean Platelet Volume 9.3 Immature 0.500 H Granulocytes % Neutrophils % 63.1 Lymphocytes % 20.4 Monocytes % 14.5 H Eosinophils % 1.3 Basophils % 0.2 Nucleated Red Blood 0.2 H Cells % Immature 0.060 H Granulocytes # Neutrophils # 7.1 Lymphocytes # 2.3 Monocytes # 1.6 H Eosinophils # 0.2 Basophils # 0.0 Nucleated Red Blood 0.0 Cells # Sodium Level 137 Potassium Level 4.4 Chloride Level 107 Carbon Dioxide Level 21 Anion Gap 9 # Blood Urea Nitrogen 47 H Creatinine 1.24 H Est Glomerular 43 L Filtrat Rate mL/min Glucose Level 87 Calcium Level 8.7 Test 08/16/18 07:05 08/16/18 08:13 08/16/18 11:10 Bedside Glucose 81 124 157 Subjective 24 Hr Interval Summary Free Text/Dictation Pt says that she is comfortable but weak. Exam/Review of Systems Exam Vitals Vital Signs Date Temp Pulse Resp B/P (MAP) Pulse Ox O2 O2 Flow FiO2 Time Delivery Rate 08/16/18 67 12:14 08/16/18 97.9 20 102/54 95 Room Air 11:15 (70) 08/16/18 2.0 08:16 08/15/18 27 16:25 Intake and Output 08/15/18 08/15/18 08/16/18 1515:00 23:00 07:00 IntakeIntake Total 150 ml 750 ml 300 ml OutputOutput Total 1050 ml BalanceBalance 150 ml -300 ml 300 ml Constitutional: alert Head: normocephalic Eyes: other (conjunctival pallor) Neck: supple Respiratory: clear to auscultation Cardiovascular: regular rate and rhythm Gastrointestinal: soft, non-tender Results Results 24hrs Laboratory Tests Test 08/15/18 17:13 08/15/18 20:34 08/16/18 02:09 08/16/18 05:10 Bedside Glucose 209 120 107 White Blood Count 11.2 H Red Blood Count 2.77 L Hemoglobin 7.9 L Hematocrit 24.3 L Mean Corpuscular 87.7 Volume Mean Corpuscular 28.5 L Hemoglobin Mean Corpuscular 32.5 Hemoglobin Concent Red Cell 16.4 H Distribution Width Platelet Count 751 H Mean Platelet Volume 9.3 Immature 0.500 H Granulocytes % Neutrophils % 63.1 Lymphocytes % 20.4 Monocytes % 14.5 H Eosinophils % 1.3 Basophils % 0.2 Nucleated Red Blood 0.2 H Cells % Immature 0.060 H Granulocytes # Neutrophils # 7.1 Lymphocytes # 2.3 Monocytes # 1.6 H Eosinophils # 0.2 Basophils # 0.0 Nucleated Red Blood 0.0 Cells # Sodium Level 137 Potassium Level 4.4 Chloride Level 107 Carbon Dioxide Level 21 Anion Gap 9 # Blood Urea Nitrogen 47 H Creatinine 1.24 H Est Glomerular 43 L Filtrat Rate mL/min Glucose Level 87 Calcium Level 8.7 Test 08/16/18 07:05 08/16/18 08:13 08/16/18 11:10 Bedside Glucose 81 124 157 Medications Medication Current Medications IV Flush (NS 3 ml) 3 ml PER PROTOCOL IV Last administered on 08/05/18at 09:07; Admin Dose 3 ML; Start 07/29/18 at 06:30 Ondansetron HCl (Zofran Inj) 4 mg Q6H PRN IV NAUSEA/VOMITING Last administered on 08/11/18at 04:32; Admin Dose 4 MG; Start 07/29/18 at 06:30 Acetaminophen/ Hydrocodone Bitart ([place] (5/325)) 1 tab Q6H PRN PO .MOD PAIN 4- 6 Last administered on 08/16/18 09:03; Admin Dose 1 TAB; Start 07/29/18 at 06:30 Pantoprazole (Protonix Tab) 40 mg DAILY@06 PO Last administered on 08/16/18 06:31; Admin Dose 40 MG; Start 07/29/18 at 06:30 Enoxaparin Sodium (Lovenox) 30 mg DAILY SC Last administered on 08/16/18 08:54; Admin Dose 30 MG; Start 07/29/18 at 09:00 Diagnostic Test (Pha) (Accu-Chek) 1 ea 02 XX Last administered on 08/16/18 02:00; Admin Dose 1 EA; Start 07/30/18 at 02:00 Acetaminophen (Tylenol Tab) 650 mg Q6H PRN PO .PAIN 1-3 OR TEMP Last administered on 08/12/18 16:11; Admin Dose 650 MG; Start 07/29/18 at 07:00 Eye Lubricant (Akwa Oint) 1 applic Q1H PRN BOTH EYES DRY EYES; Start 07/29/18 at 08:00 Aspirin (Halfprin) 81 mg DAILY PO Last administered on 08/16/18 08:17; Admin Dose 81 MG; Start 07/29/18 at 09:00 Atorvastatin Calcium (Lipitor) 20 mg QHS PO Last administered on 08/15/18 20:50; Admin Dose 20 MG; Start 07/29/18 at 21:00 Clopidogrel Bisulfate (plaVIX) 75 mg DAILY PO Last administered on 08/16/18 08:16; Admin Dose 75 MG; Start 07/29/18 at 09:00 Cyanocobalamin (Vitamin B12) 50 mcg DAILY PO Last administered on 08/16/18 08:16; Admin Dose 50 MCG; Start 07/29/18 at 09:00 Levothyroxine Sodium (Synthroid) 50 mcg BEFORE BREAKFAST PO Last administered on 08/16/18 06:31; Admin Dose 50 MCG; Start 07/29/18 at 07:00 Metoprolol Succinate (Toprol Xl) 25 mg BID PO Last administered on 08/16/18 08:17; Admin Dose 25 MG; Start 07/29/18 at 09:00 Polyethyl Glycol/ Propylene Glycol (Systane 0.3-0.4% Eye Drops) 1 drop Q4H PRN BOTH EYES DRY EYES; Start 07/29/18 at 08:00 Albuterol (Ventolin Hfa) 2 puff Q4H RESP THERAPY PRN INH WHEEZING; Start 07/29/18 at 09:00 Miscellaneous Information 1 ea NOTE XX ; Start 07/29/18 at 07:00 Glucose (Glutose) 15 gm Q15M PRN PO DECREASED GLUCOSE; Start 07/29/18 at 07:00 Glucose (Glutose) 22.5 gm Q15M PRN PO DECREASED GLUCOSE; Start 07/29/18 at 07:00 Dextrose (D50w Syringe) 25 ml Q15M PRN IV DECREASED GLUCOSE; Start 07/29/18 at 07:00 Dextrose (D50w Syringe) 50 ml Q15M PRN IV DECREASED GLUCOSE; Start 07/29/18 at 07:00 Glucagon (Glucagen) 1 mg Q15M PRN IM DECREASED GLUCOSE; Start 07/29/18 at 07:00 Glucose (Glutose) 15 gm Q15M PRN BUCCAL DECREASED GLUCOSE; Start 07/29/18 at 07:00 Alprazolam (Xanax) 0.25 mg Q8H PRN PO ANXIETY Last administered on 08/16/18at 10:34; Admin Dose 0.25 MG; Start 07/29/18 at 12:30 Polyethylene Glycol (Miralax) 17 gm DAILY PO Last administered on 08/16/18at 08:16; Admin Dose 17 GM; Start 07/29/18 at 12:30 Docusate Sodium (Colace) 100 mg BID PO Last administered on 08/16/18at 08:16; Admin Dose 100 MG; Start 07/31/18 at 21:00 Magnesium Hydroxide (Milk Of Mag) 30 ml Q12H PRN PO STOMACH UPSET/CRAMPING Last administered on 07/31/18at 21:28; Admin Dose 30 ML; Start 07/31/18 at 20:00 Al Hydrox/Mg Hydrox/Simethicone (Mag-Al Plus) 30 ml Q6H PRN PO GASTROINTESTINAL UPSET Last administered on 08/15/18at 14:13; Admin Dose 30 ML; Start 08/03/18 at 17:30 Insulin Aspart (Novolog Insulin Pen) (Adult SC Insulin - Moder... AC MEALS AND BEDTIME SC Last administered on 08/16/18 11:13; Admin Dose 2 UNIT; Start 08/08/18 at 17:30 Insulin Glargine (Lantus) 8 units DAILY@2000 SC Last administered on 08/15/18 20:57; Admin Dose 8 UNITS; Start 08/09/18 at 20:00 Insulin Aspart (Novolog Insulin Pen) 3 unit WITH MEALS SC Last administered on 08/16/18 11:12; Admin Dose 3 UNIT; Start 08/09/18 at 18:00 Zolpidem Tartrate (Ambien) 5 mg HS PRN PO INSOMNIA Last administered on 08/15/18 20:51; Admin Dose 5 MG; Start 08/12/18 at 21:30 Albuterol/ Ipratropium (Duoneb) 3 ml Q2H RESP THERAPY PRN HHN sob; Start at 12:00 Sodium Chloride 1,000 ml @ 50 mls/hr Q20H IV Last administered on 08/15/18 14:13; Admin Dose 50 MLS/HR; Start 08/15/18 at 14:00 TUAN BARRON MD Aug 16, 2018 15:00
[2018-08-16] MEDS: ZOLPIDEM 5 MG TAB PO PRN (20:20)
[2018-08-16] MEDS: ATORVASTATIN 20 MG TAB PO SCH (20:20)
[2018-08-16] MEDS: ACETAMINOPHEN 325 MG TAB PO PRN (20:30)
[2018-08-16] MEDS: INSULIN GLARGINE [LANTus] (100 UNITS/ML) SYG SC SCH (23:26)
[2018-08-16] MEDS: AL HYDROX/MG HYDROX/SIMETH 30 ML CUP PO PRN (23:45)
[2018-08-17] VITALS (11 sets, daily range): BP systolic 110–143; BP diastolic 59–67; PULSE 67–88; RESP 17–20
[2018-08-17] MEDS: HYDROCODONE/APAP (5/325) TAB PO PRN ×2 (01:27→14:44)
[2018-08-17] MEDS: ACCU-CHEK XX SCH (02:00)
[2018-08-17] MEDS: LEVOTHYROXINE 50 MCG TAB PO SCH (05:44)
[2018-08-17] MEDS: PANTOPRAZOLE (EC) 40 MG TAB PO SCH (05:44)
[2018-08-17] MEDS: ACETAMINOPHEN 325 MG TAB PO PRN (05:46)
[2018-08-17] MEDS: INSULIN ASPART [NOVOLOG] 3 ML PEN SC SCH ×7 (07:00→21:32)
[2018-08-17] MEDS: METOPROLOL (XL) 25 MG TAB PO SCH ×2 (08:43→21:33)
[2018-08-17] MEDS: CYANOCOBALAMIN 100 MCG TAB PO SCH (08:43)
[2018-08-17] MEDS: CLOPIDOGREL 75 MG TAB PO SCH (08:43)
[2018-08-17] MEDS: DOCUSATE SODIUM 100 MG CAP PO SCH ×2 (08:43→21:00)
[2018-08-17] MEDS: ALPRAZOLAM 0.25 MG TAB PO PRN ×2 (08:43→22:30)
[2018-08-17] MEDS: ASPIRIN (EC) 81 MG TAB PO SCH (08:43)
[2018-08-17] MEDS: POLYETHYLENE GLYCOL 17 GM PACKET PO SCH (08:44)
[2018-08-17] MEDS: ENOXAPARIN 30 MG/0.3 ML SYG SC SCH (09:05)
--- NOTE | 2018-08-17 10:09 | PN ---
DATE: 08/17/2018 SUBJECTIVE: The patient is stable. This morning, the patient is anxious. No other events noted. N o hemoptysis, hematemesis or hematochezia. OBJECTIVE: VITAL SIGNS: Blood pressure is 124/60, respiration 18, pulse 69, temperature 98.4. HEENT: Head is normocephalic. NECK: Supple. HEART: Regular rate. LUNGS: Show diminished breath sounds at the base. ABDOMEN: Soft, nontender to palpation without rebound or guarding. EXTREMITIES: Negative for clubbing, cyanosis. Positive edema. DERMATOLOGIC: No rashes. MUSCULOSKELETAL: No joint effusion. NEUROLOGIC: No change in exam. MEDICATIONS: Have been reviewed. LABORATORY DATA: Has been reviewed. ASSESSMENT AND PLAN: 1. Nonoliguric acute kidney injury on top of chronic kidney disease with previous baseline creatinin e around 1.2 to 1.4 mg/dL. The etiology of current acute kidney injury is secondary to hemodynamics . Renal function is improved with IV hydration. At this point, will discontinue IV fluids, continue supportive care, renally dose all meds, avoid nephrotoxins. 2. Anemia. Monitor hemoglobin and hematocrit levels. 3. Mineral bone disorder. Monitor calcium and phosphorus levels. 4. Hypokalemia improved. 5. Renal insufficiency. Continue to monitor. 5. Coronary artery disease. The patient has a positive stress test, may require cardiac catheteriza tion. Continue to monitor. Follow up with cardiology. 6. Hypothyroidism. Continue Synthroid. 7. Diabetes. Continue insulin regimen. 8. Pleural effusion, status post thoracentesis. 9. Liver mass. Findings consistent with metastatic carcinosarcoma. Continue to monitor. Follow up with oncology. Dictated By: JACOB BROCK DO NR/NTS Conf#: [id number] DID#: [id number] CC: TAN MAIER MD;*EndCC*
--- NOTE | 2018-08-17 10:56 | CONS ---
Consultation Date/Type/Reason Admit Date/Time Jul 29, 2018 at 06:16 Initial Consult Date 08/15/18 Type of Consult Pulmonary Patient is a 68-year-old lady who came into the hospital on the second of this month with complaints of shortness of breath. Upon evaluation a chest x-ray was done which is showing a right pleural effusion. Further work-up revealed a liver mass which is showing metastatic carcinoma. Patient denies any shortness of breath, chest pain, wheezing, sputum production hemoptysis. Has complained of weight loss. By the time I saw her, patient was completely awake and alert. And did not appear to be in any distress whatsoever. Past medical history; 1. Recently diagnosed metastatic hepatic carcinoma. 2. Chronic renal insufficiency. 3. History of diabetes and hypothyroidism. 4. History of left corneal opacity. Medications; reviewed. Allergies; Levaquin. Family history; she lives with HER-2 sons. No history of any malignancy. 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 Review of systems; denies any headache, seizures, visual changes. Any dysphagia. Denies any chest pain, complains of very mild shortness of breath. Denies any coughing, sputum production or hemoptysis. Denies any abdominal pain, any melena hematochezia complains of weight loss. Denies any edema. Complains of very mild orthopnea. Denies any joint symptoms. General exam; elderly female, awake alert. Currently no distress. Requesting Provider: SANDI MURDOCK NP Date/Time of Note DATE: 08/17/18 TIME: 10:52 24 HR Interval Summary Free Text/Dictation Patient's condition is stable. Denies any shortness breath, chest pain, cou ghing or wheezing. General exam; elderly female, awake alert, currently in no distress. H ENT exam; supple neck, no JVD. No lymphadenopathy. Midline trachea. No thyromegaly. Patient has a left corneal opacity. Patient is edentulous. Chest exam; diminished breath sounds right lower lobe. Left lung sullivan are clear. S1-S2 audible, no murmurs. Regular rhythm. Abdomen exam; soft, scaphoid. No organomegaly. Bowel sounds audible. Extremity exam; no peripheral edema clubbing. [employer] exam; no focal deficit. Assessment and recommendations; 1. Patient status post liver biopsy revealing carcinosarcoma with right pleural effusion status post thoracentesis. 2. History of chronic renal insufficiency, diabetes, hypertension and hypothyroidism. Continue with supportive care. Obtain follow-up chest x-ray to evaluate for recurrence of right pleural effusion. If the patient has a significant recurrence, she will need to have a Pleurx catheter placed. Further recommendation per oncologist. Prognosis is guarded. Exam/Review of Systems Exam Vitals Vital Signs Date Temp Pulse Resp B/P (MAP) Pulse Ox O2 O2 Flow FiO2 Time Delivery Rate 08/17/18 72 09:08 08/17/18 Nasal 2.0 07:47 Cannula 08/17/18 98.4 18 124/60 100 07:39 (81) 08/15/18 27 16:25 Intake and Output 08/16/18 08/16/18 08/17/18 1515:00 23:00 07:00 IntakeIntake Total 720 ml 150 ml 930 ml OutputOutput Total 51 ml 400 ml BalanceBalance 669 ml 150 ml 530 ml Results Result Diagram: 08/17/18 0531 08/17/18 0531 Results 24hrs Laboratory Tests Test 08/16/18 11:10 08/16/18 17:13 08/16/18 20:28 08/17/18 05:31 Bedside Glucose 157 170 134 White Blood Count 11.1 H Red Blood Count 2.77 L Hemoglobin 7.9 L Hematocrit 24.8 L Mean Corpuscular 89.5 Volume Mean Corpuscular 28.5 L Hemoglobin Mean Corpuscular 31.9 L Hemoglobin Concent Red Cell 16.8 H Distribution Width Platelet Count 762 H Mean Platelet Volume 9.2 Immature 0.500 H Granulocytes % Neutrophils % 60.7 Lymphocytes % 21.5 Monocytes % 14.2 H Eosinophils % 2.7 Basophils % 0.4 Nucleated Red Blood 0.0 Cells % Immature 0.060 H Granulocytes # Neutrophils # 6.7 Lymphocytes # 2.4 Monocytes # 1.6 H Eosinophils # 0.3 Basophils # 0.0 Nucleated Red Blood 0.0 Cells # Sodium Level 137 Potassium Level 4.6 Chloride Level 110 Carbon Dioxide Level 18 L Anion Gap 9 Blood Urea Nitrogen 40 H Creatinine 1.18 H Est Glomerular 45 L Filtrat Rate mL/min Glucose Level 83 Calcium Level 8.7 Test 08/17/18 08:40 Bedside Glucose 95 Medications Medication Current Medications IV Flush (NS 3 ml) 3 ml PER PROTOCOL IV Last administered on 08/05/18 09:07; Admin Dose 3 ML; Start 07/29/18 at 06:30 Ondansetron HCl (Zofran Inj) 4 mg Q6H PRN IV NAUSEA/VOMITING Last administered on 08/11/18 04:32; Admin Dose 4 MG; Start 07/29/18 at 06:30 Acetaminophen/ Hydrocodone Bitart ([place] (5/325)) 1 tab Q6H PRN PO .MOD PAIN 4- 6 Last administered on 08/17/18 01:27; Admin Dose 1 TAB; Start 07/29/18 at 06:30 Pantoprazole (Protonix Tab) 40 mg DAILY@06 PO Last administered on 08/17/18 05:44; Admin Dose 40 MG; Start 07/29/18 at 06:30 Enoxaparin Sodium (Lovenox) 30 mg DAILY SC Last administered on 08/17/18 09:05; Admin Dose 30 MG; Start 07/29/18 at 09:00 Diagnostic Test (Pha) (Accu-Chek) 1 ea 02 XX Last administered on 08/16/18 02:00; Admin Dose 1 EA; Start 07/30/18 at 02:00 Acetaminophen (Tylenol Tab) 650 mg Q6H PRN PO .PAIN 1-3 OR TEMP Last administered on 08/17/18 05:46; Admin Dose 650 MG; Start 07/29/18 at 07:00 Eye Lubricant (Akwa Oint) 1 applic Q1H PRN BOTH EYES DRY EYES; Start 07/29/18 at 08:00 Aspirin (Halfprin) 81 mg DAILY PO Last administered on 08/17/18 08:43; Admin Dose 81 MG; Start 07/29/18 at 09:00 Atorvastatin Calcium (Lipitor) 20 mg QHS PO Last administered on 08/16/18 20:20; Admin Dose 20 MG; Start 07/29/18 at 21:00 Clopidogrel Bisulfate (plaVIX) 75 mg DAILY PO Last administered on 08/17/18 08:43; Admin Dose 75 MG; Start 07/29/18 at 09:00 Cyanocobalamin (Vitamin B12) 50 mcg DAILY PO Last administered on 08/17/18 08:43; Admin Dose 50 MCG; Start 07/29/18 at 09:00 Levothyroxine Sodium (Synthroid) 50 mcg BEFORE BREAKFAST PO Last administered on 08/17/18 05:44; Admin Dose 50 MCG; Start 07/29/18 at 07:00 Metoprolol Succinate (Toprol Xl) 25 mg BID PO Last administered on 08/17/18 08:43; Admin Dose 25 MG; Start 07/29/18 at 09:00 Polyethyl Glycol/ Propylene Glycol (Systane 0.3-0.4% Eye Drops) 1 drop Q4H PRN BOTH EYES DRY EYES; Start 07/29/18 at 08:00 Albuterol (Ventolin Hfa) 2 puff Q4H RESP THERAPY PRN INH WHEEZING; Start 07/29/18 at 09:00 Miscellaneous Information 1 ea NOTE XX ; Start 07/29/18 at 07:00 Glucose (Glutose) 15 gm Q15M PRN PO DECREASED GLUCOSE; Start 07/29/18 at 07:00 Glucose (Glutose) 22.5 gm Q15M PRN PO DECREASED GLUCOSE; Start 07/29/18 at 07:00 Dextrose (D50w Syringe) 25 ml Q15M PRN IV DECREASED GLUCOSE; Start 07/29/18 at 07:00 Dextrose (D50w Syringe) 50 ml Q15M PRN IV DECREASED GLUCOSE; Start 07/29/18 at 07:00 Glucagon (Glucagen) 1 mg Q15M PRN IM DECREASED GLUCOSE; Start 07/29/18 at 07:00 Glucose (Glutose) 15 gm Q15M PRN BUCCAL DECREASED GLUCOSE; Start 07/29/18 at 07:00 Alprazolam (Xanax) 0.25 mg Q8H PRN PO ANXIETY Last administered on 08/17/18 08 :43; Admin Dose 0.25 MG; Start 07/29/18 at 12:30 Polyethylene Glycol (Miralax) 17 gm DAILY PO Last administered on 08/17/18 08:44; Admin Dose 17 GM; Start 07/29/18 at 12:30 Docusate Sodium (Colace) 100 mg BID PO Last administered on 08/17/18 08:43; Admin Dose 100 MG; Start 07/31/18 at 21:00 Magnesium Hydroxide (Milk Of Mag) 30 ml Q12H PRN PO STOMACH UPSET/CRAMPING Last administered on 07/31/18 21:28; Admin Dose 30 ML; Start 07/31/18 at 20:00 Al Hydrox/Mg Hydrox/Simethicone (Mag-Al Plus) 30 ml Q6H PRN PO GASTROINTESTINAL UPSET Last administered on 08/16/18at 23:45; Admin Dose 30 ML; Start 08/03/18 at 17:30 Insulin Aspart (Novolog Insulin Pen) (Adult SC Insulin - Moder... AC MEALS AND BEDTIME SC Last administered on 08/16/18at 17:19; Admin Dose 2 UNIT; Start 08/08/18 at 17:30 Insulin Glargine (Lantus) 8 units DAILY@2000 SC Last administered on 08/16/18 23:26; Admin Dose 8 UNITS; Start 08/09/18 at 20:00 Insulin Aspart (Novolog Insulin Pen) 3 unit WITH MEALS SC Last administered on 08/17/18at 09:05; Admin Dose 3 UNIT; Start 08/09/18 at 18:00 Zolpidem Tartrate (Ambien) 5 mg HS PRN PO INSOMNIA Last administered on 08/16/18at 20:20; Admin Dose 5 MG; Start 08/12/18 at 21:30 Albuterol/ Ipratropium (Duoneb) 3 ml Q2H RESP THERAPY PRN HHN sob; Start 08/14/18 at 12:00 MIKEY FAGAN Aug 17, 2018 10:56
--- NOTE | 2018-08-17 11:09 | CONS ---
Assessment/Plan Assessment/Plan Hospital Course (Demo Recall) IMP: 1.Preop-neg trop mutiple times. NL EF by echo. Lexiscan with possible distal anterior ischemia. NL EF 2.abnl ecg-ECG today with inferior ST elevation but with normal concaviity and Q's isolated to lead 3 No chest pain or sob/neg trop this am. ? pericarditits. NL EF by echo this admit. multiple negative troponins and no chest pain 3.Uterine cancer 4.DM 5.HTN 6.HL Recc -Tele -Continue asa/plavix/toprol/statin -ongoing renal f/u -follow BS closely -f/u pathology from [facility] -reccommend either cardiac cath or CTA to further assess for sig obstructve cad and given recent flood in cathlab would thus attempt to proceed with CTA and have discussed with renal who believes creatnine is optimized as possible today and thus will proceed with CTA today for further eval of anterior ischemia seen by CT -ok for ambulation as tolerated Consultation Date/Type/Reason Admit Date/Time Jul 29, 2018 at 06:16 Initial Consult Date 08/10/18 Type of Consult Cardiology Reason for Consultation preop Requesting Provider: SANDI MURDOCK NP Date/Time of Note DATE: 08/17/18 TIME: 11:05 Exam/Review of Systems Vital Signs Vitals Vital Signs Date Temp Pulse Resp B/P (MAP) Pulse Ox O2 O2 Flow FiO2 Time Delivery Rate 08/17/18 72 09:08 08/17/18 Nasal 2.0 07:47 Cannula 08/17/18 98.4 18 124/60 100 07:39 (81) 08/15/18 27 16:25 Intake and Output 08/16/18 08/16/18 08/17/18 1515:00 23:00 07:00 IntakeIntake Total 720 ml 150 ml 930 ml OutputOutput Total 51 ml 400 ml BalanceBalance 669 ml 150 ml 530 ml Exam Exam Review of Systems: CONSTITUTIONAL: No fevers, chills. PULMONARY: No sob CARDIOVASCULAR: No chest pain/palpitations GASTROINTESTINAL: No nausea/vomiting. GENITOURINARY: No hematuria/dysuria. MUSCULOSKELETAL: No myagias/arthalgias. PSYCHIATRIC: The patient denies depression. NEUROLOGIC: mild generalized weakness Constitutional: alert Head: normocephalic ENMT: mucosa pink and moist Neck: supple, jvd (8 cm water) Respiratory: diminished breath sounds (at bases/B) Cardiovascular: regular rate and rhythm Gastrointestinal: soft, non-tender Musculoskeletal: muscle weakness (generalized) Extremities: edema (none) Neurological: confused (?) Labs Result Diagram: 08/17/1853008/17/18 0531 Results 24hrs Laboratory Tests Test 08/16/18 11:10 08/16/18 17:13 08/16/18 20:28 08/17/18 05:31 Bedside Glucose 157 170 134 White Blood Count 11.1 H Red Blood Count 2.77 L Hemoglobin 7.9 L Hematocrit 24.8 L Mean Corpuscular 89.5 Volume Mean Corpuscular 28.5 L Hemoglobin Mean Corpuscular 31.9 L Hemoglobin Concent Red Cell 16.8 H Distribution Width Platelet Count 762 H Mean Platelet Volume 9.2 Immature 0.500 H Granulocytes % Neutrophils % 60.7 Lymphocytes % 21.5 Monocytes % 14.2 H Eosinophils % 2.7 Basophils % 0.4 Nucleated Red Blood 0.0 Cells % Immature 0.060 H Granulocytes # Neutrophils # 6.7 Lymphocytes # 2.4 Monocytes # 1.6 H Eosinophils # 0.3 Basophils # 0.0 Nucleated Red Blood 0.0 Cells # Sodium Level 137 Potassium Level 4.6 Chloride Level 110 Carbon Dioxide Level 18 L Anion Gap 9 Blood Urea Nitrogen 40 H Creatinine 1.18 H Est Glomerular 45 L Filtrat Rate mL/min Glucose Level 83 Calcium Level 8.7 Test 08/17/18 08:40 Bedside Glucose 95 Medications Medications Current Medications IV Flush (NS 3 ml) 3 ml PER PROTOCOL IV Last administered on 08/05/18at 09:07; Admin Dose 3 ML; Start 07/29/18 at 06:30 Ondansetron HCl (Zofran Inj) 4 mg Q6H PRN IV NAUSEA/VOMITING Last administered on 08/11/18at 04:32; Admin Dose 4 MG; Start 07/29/18 at 06:30 Acetaminophen/ Hydrocodone Bitart ([place] (5/325)) 1 tab Q6H PRN PO .MOD PAIN 4- 6 Last administered on 08/17/18at 01:27; Admin Dose 1 TAB; Start 07/29/18 at 06:30 Pantoprazole (Protonix Tab) 40 mg DAILY@06 PO Last administered on 08/17/18 05:44; Admin Dose 40 MG; Start 07/29/18 at 06:30 Enoxaparin Sodium (Lovenox) 30 mg DAILY SC Last administered on 08/17/18 09: 05; Admin Dose 30 MG; Start 07/29/18 at 09:00 Diagnostic Test (Pha) (Accu-Chek) 1 ea 02 XX Last administered on 08/16/18 02:00; Admin Dose 1 EA; Start 07/30/18 at 02:00 Acetaminophen (Tylenol Tab) 650 mg Q6H PRN PO .PAIN 1-3 OR TEMP Last administered on 08/17/18 05:46; Admin Dose 650 MG; Start 07/29/18 at 07:00 Eye Lubricant (Akwa Oint) 1 applic Q1H PRN BOTH EYES DRY EYES; Start 07/29/18 at 08:00 Aspirin (Halfprin) 81 mg DAILY PO Last administered on 08/17/18 08:43; Admin Dose 81 MG; Start 07/29/18 at 09:00 Atorvastatin Calcium (Lipitor) 20 mg QHS PO Last administered on 08/16/18 20:20; Admin Dose 20 MG; Start 07/29/18 at 21:00 Clopidogrel Bisulfate (plaVIX) 75 mg DAILY PO Last administered on 08/17/18 08:43; Admin Dose 75 MG; Start 07/29/18 at 09:00 Cyanocobalamin (Vitamin B12) 50 mcg DAILY PO Last administered on 08/17/18 08:43; Admin Dose 50 MCG; Start 07/29/18 at 09:00 Levothyroxine Sodium (Synthroid) 50 mcg BEFORE BREAKFAST PO Last administered on 08/17/18 05:44; Admin Dose 50 MCG; Start 07/29/18 at 07:00 Metoprolol Succinate (Toprol Xl) 25 mg BID PO Last administered on 08/17/18 08:43; Admin Dose 25 MG; Start 07/29/18 at 09:00 Polyethyl Glycol/ Propylene Glycol (Systane 0.3-0.4% Eye Drops) 1 drop Q4H PRN BOTH EYES DRY EYES; Start 07/29/18 at 08:00 Albuterol (Ventolin Hfa) 2 puff Q4H RESP THERAPY PRN INH WHEEZING; Start 07/29/18 at 09:00 Miscellaneous Information 1 ea NOTE XX ; Start 07/29/18 at 07:00 Glucose (Glutose) 15 gm Q15M PRN PO DECREASED GLUCOSE; Start 07/29/18 at 07:00 Glucose (Glutose) 22.5 gm Q15M PRN PO DECREASED GLUCOSE; Start 07/29/18 at 07:00 Dextrose (D50w Syringe) 25 ml Q15M PRN IV DECREASED GLUCOSE; Start 07/29/18 at 07:00 Dextrose (D50w Syringe) 50 ml Q15M PRN IV DECREASED GLUCOSE; Start 07/29/18 at 07:00 Glucagon (Glucagen) 1 mg Q15M PRN IM DECREASED GLUCOSE; Start 07/29/18 at 07:00 Glucose (Glutose) 15 gm Q15M PRN BUCCAL DECREASED GLUCOSE; Start 07/29/18 at 07:00 Alprazolam (Xanax) 0.25 mg Q8H PRN PO ANXIETY Last administered on 08/17/18at 08:43; Admin Dose 0.25 MG; Start 07/29/18 at 12:30 Polyethylene Glycol (Miralax) 17 gm DAILY PO Last administered on 08/17/18at 08:44; Admin Dose 17 GM; Start 07/29/18 at 12:30 Docusate Sodium (Colace) 100 mg BID PO Last administered on 08/17/18at 08:43; Admin Dose 100 MG; Start 07/31/18 at 21:00 Magnesium Hydroxide (Milk Of Mag) 30 ml Q12H PRN PO STOMACH UPSET/CRAMPING Last administered on 07/31/18at 21:28; Admin Dose 30 ML; Start 07/31/18 at 20:00 Al Hydrox/Mg Hydrox/Simethicone (Mag-Al Plus) 30 ml Q6H PRN PO GASTROINTESTINAL UPSET Last administered on 08/16/18at 23:45; Admin Dose 30 ML; Start 08/03/18 at 17:30 Insulin Aspart (Novolog Insulin Pen) (Adult SC Insulin - Moder... AC MEALS AND BEDTIME SC Last administered on 08/16/18at 17:19; Admin Dose 2 UNIT; Start 08/08/18 at 17:30 Insulin Glargine (Lantus) 8 units DAILY@2000 SC Last administered on 08/16/18at 23:26; Admin Dose 8 UNITS; Start 08/09/18 at 20:00 Insulin Aspart (Novolog Insulin Pen) 3 unit WITH MEALS SC Last administered on 08/17/18at 09:05; Admin Dose 3 UNIT; Start 08/09/18 at 18:00 Zolpidem Tartrate (Ambien) 5 mg HS PRN PO INSOMNIA Last administered on 08/16/18at 20:20; Admin Dose 5 MG; Start 08/12/18 at 21:30 Albuterol/ Ipratropium (Duoneb) 3 ml Q2H RESP THERAPY PRN HHN sob; Start 08/14/18 at 12:00 TAN LIRIANO Aug 17, 2018 11:09
--- NOTE | 2018-08-17 15:25 | PN ---
Date/Time of Note Date/Time of Note DATE: 08/17/18 TIME: 15:13 Assessment/Plan VTE Prophylaxis Risk score (from Ns)>0 risk: 6 SCD applied (from Ns): No SCD contraindicated: other Pharmacological prophylaxis: LMWH Lines/Catheters [facility]from [facility] Peripheral IV Urinary Cath still in place: No Assessment/Plan Hospital Course 1. 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 - May benefit from a debulking surgery because of the large pelvic mass - Plan for surgical intervention once more stable 2. Bilateral lower extremity edema. - suspect multifactorial including underlying diastolic heart failure, and venous insufficiency. - diuresis as renal function tolerates 3. Peripheral artery disease. - vascular surgeon following - Continue aspirin plus Plavix. - Continue statins. 4. Diabetes mellitus. - Hemoglobin A1c 6.3. - Continue sliding scale insulin along with pre-meal insulin and basal. 5. Elevated CA-19-9. - MRI of the abdomen showing multiple parenchymal and capsular liver lesions. - S/P percutaneous biopsy on 08/09/2018 with pathology: Mass, right lobe of liver, CT-guided core needle biopsies with touch imprints: -- Metastatic malignant mesodermal mixed tumor (carcinosarcoma). 6. Constipation. - Continue bowel regimen. - GI following 7. Hypothyroidism. - Continue Synthroid. 8. Acute kidney injury. - director case following 9. Normocytic anemia. - Monitor H&H closely. - Continue iron supplements. 10. s/p Stress test 08.13.18 with small partially reversible perfusion defect in the distal anterior wall - plan for CTA 11. Dyspnea - noted with large right pleural effusion s/p thoracentesis with 750ml removed 19 - follow up pleural studies. - CXR s/p thoracentesis: Mild interval decrease in right pleural fluid with mildly improved aeration of the right lung. Moderate residual pleural effusion with associated atelectasis/consolidation of the right middle and lower lobes and perihilar right upper lobe infiltrates remains. - clay stain mixer following Disposition and plan: At present patient is not a candidate for chemotherapy. Tentative plan for pelvic surgery for removing uterine mass once more medically stable. Medical optimization in progress. Was reported patient's son Rk is seeking for aggressive therapy regarding uterine mass. Patient is status post Lexiscan stress test on August 13, 2018 showing skin to graphic abnormalities consistent with a small partially reversible perfusion defect in the distal anterior wall. plan for CTA 08.17.18 anxiolytics prn Discussed case and plan with oly Beckman Discussed POC with Dr. Allen Result Diagram: 08/17/18 0531 08/17/18 0531 Results 24hrs Laboratory Tests Test 08/16/18 17:13 08/16/18 20:28 08/17/18 05:31 08/17/18 08:40 Bedside Glucose 170 134 95 White Blood Count 11.1 H Red Blood Count 2.77 L Hemoglobin 7.9 L Hematocrit 24.8 L Mean Corpuscular 89.5 Volume Mean Corpuscular 28.5 L Hemoglobin Mean Corpuscular 31.9 L Hemoglobin Concent Red Cell 16.8 H Distribution Width Platelet Count 762 H Mean Platelet Volume 9.2 Immature 0.500 H Granulocytes % Neutrophils % 60.7 Lymphocytes % 21.5 Monocytes % 14.2 H Eosinophils % 2.7 Basophils % 0.4 Nucleated Red Blood 0.0 Cells % Immature 0.060 H Granulocytes # Neutrophils # 6.7 Lymphocytes # 2.4 Monocytes # 1.6 H Eosinophils # 0.3 Basophils # 0.0 Nucleated Red Blood 0.0 Cells # Sodium Level 137 Potassium Level 4.6 Chloride Level 110 Carbon Dioxide Level 18 L Anion Gap 9 Blood Urea Nitrogen 40 H Creatinine 1.18 H Est Glomerular 45 L Filtrat Rate mL/min Glucose Level 83 Calcium Level 8.7 Test 08/17/18 12:59 Bedside Glucose 214 Subjective 24 Hr Interval Summary Free Text/Dictation patient anxious but denies any pain or dyspnea Exam/Review of Systems Exam Vitals Vital Signs Date Temp Pulse Resp B/P (MAP) Pulse Ox O2 O2 Flow FiO2 Time Delivery Rate 08/17/18 75 12:15 08/17/18 98.4 18 110/59 97 11:58 (76) 08/17/18 Nasal 2.0 07:47 Cannula 08/15/18 27 16:25 Intake and Output 08/16/18 08/16/18 08/17/18 1515:00 23:00 07:00 IntakeIntake Total 720 ml 150 ml 930 ml OutputOutput Total 51 ml 400 ml BalanceBalance 669 ml 150 ml 530 ml Exam Constitutional: alert Psych: anxiety Head: normocephalic Neck: supple, non-tender Respiratory: diminished breath sounds (right lung field ) Gastrointestinal: soft, non-tender Musculoskeletal: swelling (ble ) Neurological: nl mental status, nl speech Results Results 24hrs Laboratory Tests Test 08/16/18 17:13 08/16/18 20:28 08/17/18 05:31 08/17/18 08:40 Bedside Glucose 170 134 95 White Blood Count 11.1 H Red Blood Count 2.77 L Hemoglobin 7.9 L Hematocrit 24.8 L Mean Corpuscular 89.5 Volume Mean Corpuscular 28.5 L Hemoglobin Mean Corpuscular 31.9 L Hemoglobin Concent Red Cell 16.8 H Distribution Width Platelet Count 762 H Mean Platelet Volume 9.2 Immature 0.500 H Granulocytes % Neutrophils % 60.7 Lymphocytes % 21.5 Monocytes % 14.2 H Eosinophils % 2.7 Basophils % 0.4 Nucleated Red Blood 0.0 Cells % Immature 0.060 H Granulocytes # Neutrophils # 6.7 Lymphocytes # 2.4 Monocytes # 1.6 H Eosinophils # 0.3 Basophils # 0.0 Nucleated Red Blood 0.0 Cells # Sodium Level 137 Potassium Level 4.6 Chloride Level 110 Carbon Dioxide Level 18 L Anion Gap 9 Blood Urea Nitrogen 40 H Creatinine 1.18 H Est Glomerular 45 L Filtrat Rate mL/min Glucose Level 83 Calcium Level 8.7 Test 08/17/18 12:59 Bedside Glucose 214 Medications Medication Current Medications IV Flush (NS 3 ml) 3 ml PER PROTOCOL IV Last administered on 08/05/18at 09:07; A dmin Dose 3 ML; Start 07/29/18 at 06:30 Ondansetron HCl (Zofran Inj) 4 mg Q6H PRN IV NAUSEA/VOMITING Last administered on 08/11/18at 04:32; Admin Dose 4 MG; Start 07/29/18 at 06:30 Acetaminophen/ Hydrocodone Bitart ([place] (5/325)) 1 tab Q6H PRN PO .MOD PAIN 4- 6 Last administered on 08/17/18at 14:44; Admin Dose 1 TAB; Start 07/29/18 at 06:30 Pantoprazole (Protonix Tab) 40 mg DAILY@06 PO Last administered on 08/17/18at 05:44; Admin Dose 40 MG; Start 07/29/18 at 06:30 Enoxaparin Sodium (Lovenox) 30 mg DAILY SC Last administered on 08/17/18 09:05; Admin Dose 30 MG; Start 07/29/18 at 09:00 Diagnostic Test (Pha) (Accu-Chek) 1 ea 02 XX Last administered on 08/16/18 02:00; Admin Dose 1 EA; Start 07/30/18 at 02:00 Acetaminophen (Tylenol Tab) 650 mg Q6H PRN PO .PAIN 1-3 OR TEMP Last administered on 08/17/18 05:46; Admin Dose 650 MG; Start 07/29/18 at 07:00 Eye Lubricant (Akwa Oint) 1 applic Q1H PRN BOTH EYES DRY EYES; Start 07/29/18 at 08:00 Aspirin (Halfprin) 81 mg DAILY PO Last administered on 08/17/18 08:43; Admin Dose 81 MG; Start 07/29/18 at 09:00 Atorvastatin Calcium (Lipitor) 20 mg QHS PO Last administered on 08/16/18 20:20; Admin Dose 20 MG; Start 07/29/18 at 21:00 Clopidogrel Bisulfate (plaVIX) 75 mg DAILY PO Last administered on 08/17/18 08:43; Admin Dose 75 MG; Start 07/29/18 at 09:00 Cyanocobalamin (Vitamin B12) 50 mcg DAILY PO Last administered on 08/17/18 08:43; Admin Dose 50 MCG; Start 07/29/18 at 09:00 Levothyroxine Sodium (Synthroid) 50 mcg BEFORE BREAKFAST PO Last administered on 08/17/18 05:44; Admin Dose 50 MCG; Start 07/29/18 at 07:00 Metoprolol Succinate (Toprol Xl) 25 mg BID PO Last administered on 08/17/18 08:43; Admin Dose 25 MG; Start 07/29/18 at 09:00 Polyethyl Glycol/ Propylene Glycol (Systane 0.3-0.4% Eye Drops) 1 drop Q4H PRN BOTH EYES DRY EYES; Start 07/29/18 at 08:00 Albuterol (Ventolin Hfa) 2 puff Q4H RESP THERAPY PRN INH WHEEZING; Start 07/29/18 at 09:00 Miscellaneous Information 1 ea NOTE XX ; Start 07/29/18 at 07:00 Glucose (Glutose) 15 gm Q15M PRN PO DECREASED GLUCOSE; Start 07/29/18 at 07:00 Glucose (Glutose) 22.5 gm Q15M PRN PO DECREASED GLUCOSE; Start 07/29/18 at 07:00 Dextrose (D50w Syringe) 25 ml Q15M PRN IV DECREASED GLUCOSE; Start 07/29/18 at 07:00 Dextrose (D50w Syringe) 50 ml Q15M PRN IV DECREASED GLUCOSE; Start 07/29/18 at 07:00 Glucagon (Glucagen) 1 mg Q15M PRN IM DECREASED GLUCOSE; Start 07/29/18 at 07:00 Glucose (Glutose) 15 gm Q15M PRN BUCCAL DECREASED GLUCOSE; Start 07/29/18 at 07:00 Alprazolam (Xanax) 0.25 mg Q8H PRN PO ANXIETY Last administered on 08/17/18at 08:43; Admin Dose 0.25 MG; Start 07/29/18 at 12:30 Polyethylene Glycol (Miralax) 17 gm DAILY PO Last administered on 08/17/18at 08:44; Admin Dose 17 GM; Start 07/29/18 at 12:30 Docusate Sodium (Colace) 100 mg BID PO Last administered on 08/17/18at 08:43; Admin Dose 100 MG; Start 07/31/18 at 21:00 Magnesium Hydroxide (Milk Of Mag) 30 ml Q12H PRN PO STOMACH UPSET/CRAMPING Last administered on 07/31/18at 21:28; Admin Dose 30 ML; Start 07/31/18 at 20:00 Al Hydrox/Mg Hydrox/Simethicone (Mag-Al Plus) 30 ml Q6H PRN PO GASTROINTESTINAL UPSET Last administered on 08/16/18at 23:45; Admin Dose 30 ML; Start 08/03/18 at 17:30 Insulin Aspart (Novolog Insulin Pen) (Adult SC Insulin - Moder... AC MEALS AND BEDTIME SC Last administered on 08/17/18at 13:09; Admin Dose 4 UNIT; Start 08/08/18 at 17:30 Insulin Glargine (Lantus) 8 units DAILY@2000 SC Last administered on 08/16/18at 23:26; Admin Dose 8 UNITS; Start 08/09/18 at 20:00 Insulin Aspart (Novolog Insulin Pen) 3 unit WITH MEALS SC Last administered on 08/17/18at 13:09; Admin Dose 3 UNIT; Start 08/09/18 at 18:00 Zolpidem Tartrate (Ambien) 5 mg HS PRN PO INSOMNIA Last administered on 08/16/18at 20:20; Admin Dose 5 MG; Start 08/12/18 at 21:30 Albuterol/ Ipratropium (Duoneb) 3 ml Q2H RESP THERAPY PRN HHN sob; Start 08/14/18 at 12:00 Diltiazem HCl (Cardizem Iv) 5 mg Q4 PRN IV HR>70 for Cardiac CTA; Start 08/17/18 at 11:30 FIDE MAGUIRE NP Aug 17, 2018 15:23
--- NOTE | 2018-08-17 18:01 | PN ---
DATE: 08/17/2018 SUBJECTIVE: The patient states that she is not experiencing pain. Does state that her appetite has improved. Not complaining of nausea or vomiting. OBJECTIVE: GENERAL: The patient is a well-developed, thin, frail, chronically ill-appearing female who is in no acute distress. VITAL SIGNS: Temperature 98.2 orally, pulse 70 per minute and regular, respirations 18, blood pressu re is 143/65, pulse oximetry is 96% on 2 liters by nasal cannula. HEENT: Normocephalic. No evidence of trauma. Pupils are equal, round, react to light and accommoda tion. Sclerae are nonicteric. Oral mucosa is moist without lesions. Tongue is well papillated. Th ere is no gingival hyperplasia, no hypertrophy of Waldeyer's ring. The patient does have nasal oxyge n in place. NECK: Supple. No jugular venous distention or thyroid enlargement. HEART: Regular sinus rhythm. No S3, S4 or murmurs. CHEST: Decreased breath sounds in both bases without rhonchi, wheezes, rales or rubs. ABDOMEN: No masses or ascites. EXTREMITIES: A 1+ bilateral pedal edema. NEUROLOGIC: No focal neurologic abnormalities other than weakness. LABORATORY DATA: White count 11,100 with absolute neutrophil count of 6700, hemoglobin 7.9, hematocr it 24.8 and platelets 762,000. Sodium 137, potassium 4.6, BUN 40, creatinine 1.18. ASSESSMENT: 1. Metastatic carcinosarcoma of uterus. 2. Anemia with some degree of iron deficiency. As noted, the patient does have carcinosarcoma (mesodermal mixed tumor) which is metastatic to the li angelita. We will request genomic studies in order to determine whether this tumor may be responsive to P D-L1 inhibitors or the patient may have fusion abnormalities. As noted, the patient's anemia is likely mixture of iron deficiency anemia and anemia of chronic dise ase. The patient's renal function is suppressed as well. We will obtain erythropoietin level and in itiate therapy with erythropoietin. The patient has received parenteral iron. I have had a long discussion with the patient's son today. Dictated By: DADA PATRICIA MD SR/NTS Conf#: [id number] DID#: [id number] CC: SANDRA AGUILERA MD; TAN MAIER MD;*EndCC*
[2018-08-17] MEDS ORDERED: morphine 4 MG/ML VIAL IV STA (20:04)
[2018-08-17] MEDS: INSULIN GLARGINE [LANTus] (100 UNITS/ML) SYG SC SCH (21:28)
[2018-08-17] MEDS: ATORVASTATIN 20 MG TAB PO SCH (21:33)
[2018-08-17] MEDS: ZOLPIDEM 5 MG TAB PO PRN (23:00)
[2018-08-18] VITALS (10 sets, daily range): BP systolic 119–134; BP diastolic 60–65; PULSE 73–94; RESP 17–20
[2018-08-18] MEDS: ACCU-CHEK XX SCH (02:00)
[2018-08-18] MEDS: PANTOPRAZOLE (EC) 40 MG TAB PO SCH (06:30)
[2018-08-18] MEDS: LEVOTHYROXINE 50 MCG TAB PO SCH (06:30)
[2018-08-18] MEDS: INSULIN ASPART [NOVOLOG] 3 ML PEN SC SCH ×7 (07:00→20:27)
[2018-08-18] MEDS: CLOPIDOGREL 75 MG TAB PO SCH (08:40)
[2018-08-18] MEDS: CYANOCOBALAMIN 100 MCG TAB PO SCH (08:40)
[2018-08-18] MEDS: METOPROLOL (XL) 25 MG TAB PO SCH ×2 (08:41→20:26)
[2018-08-18] MEDS: ASPIRIN (EC) 81 MG TAB PO SCH (08:41)
[2018-08-18] MEDS: DOCUSATE SODIUM 100 MG CAP PO SCH ×2 (08:49→20:26)
[2018-08-18] MEDS: POLYETHYLENE GLYCOL 17 GM PACKET PO SCH (09:00)
[2018-08-18] MEDS: ENOXAPARIN 30 MG/0.3 ML SYG SC SCH (09:40)
--- NOTE | 2018-08-18 09:55 | CONS ---
Consult Date/Type/Reason Admit Date/Time Jul 29, 2018 at 06:16 Initial Consult Date 08/15/18 Requesting Provider: SANDI MURDOCK NP Date/Time of Note DATE: 08/18/18 TIME: 09:48 Subjective The patient is stable. No other events noted. No hemoptysis, hematemesis or hematochezia. HEENT: Head is normocephalic. NECK: Supple. HEART: Regular rate. LUNGS: Show diminished breath sounds at the base. ABDOMEN: Soft, nontender to palpation without rebound or guarding. EXTREMITIES: Negative for clubbing, cyanosis. Positive edema. DERMATOLOGIC: No rashes. MUSCULOSKELETAL: No joint effusion. NEUROLOGIC: No change in exam. Objective Vitals Vital Signs Date Temp Pulse Resp B/P (MAP) Pulse Ox O2 O2 Flow FiO2 Time Delivery Rate 08/18/18 Nasal 2.0 08:20 Cannula 08/18/18 83 08:00 08/18/18 98.0 20 131/65 98 07:08 (87) 08/15/18 27 16:25 Intake and Output 08/17/18 08/17/18 08/18/18 1515:00 23:00 07:00 IntakeIntake Total 240 ml 240 ml OutputOutput Total 240 ml BalanceBalance 0 ml 240 ml Results/Medications Result Diagram: 08/18/18 0446 08/18/18 0446 Results 24 hrs Laboratory Tests Test 08/17/18 12:59 08/17/18 17:05 08/17/18 20:48 08/18/18 04:46 Bedside Glucose 214 77 232 H White Blood Count 11.0 H Red Blood Count 2.77 L Hemoglobin 7.9 L Hematocrit 24.9 L Mean Corpuscular 89.9 Volume Mean Corpuscular 28.5 L Hemoglobin Mean Corpuscular 31.7 L Hemoglobin Concent Red Cell 16.6 H Distribution Width Platelet Count 799 H Mean Platelet Volume 9.2 Immature 0.500 H Granulocytes % Neutrophils % 65.5 Lymphocytes % 19.6 Monocytes % 12.2 H Eosinophils % 1.7 Basophils % 0.5 Nucleated Red Blood 0.0 Cells % Immature 0.060 H Granulocytes # Neutrophils # 7.2 Lymphocytes # 2.2 Monocytes # 1.3 H Eosinophils # 0.2 Basophils # 0.1 Nucleated Red Blood 0.0 Cells # Sodium Level 141 Potassium Level 5.2 H Chloride Level 111 H Carbon Dioxide Level 20 L Anion Gap 10 Blood Urea Nitrogen 35 H Creatinine 1.27 H Est Glomerular 42 L Filtrat Rate mL/min Glucose Level 150 Calcium Level 9.1 Test 08/18/18 06:38 08/18/18 08:38 Bedside Glucose 136 138 Home Meds Active Scripts Magnesium Oxide* (Mag-Oxide*) 400 Mg Tablet, 400 MG PO BID for 3 Days, #10 TAB Prov:FERNANDO YANCEY MD 07/08/18 Lactobacillus Rhamnosus GG (Culturelle) 1 Each Capsule, 1 CAP PO BID for 14 Days, #30 CAP Prov:FERNANDO YANCEY MD 07/08/18 Acetaminophen* (Tylenol*) 325 Mg Tablet, 650 MG PO Q6H PRN for .PAIN 1-3 OR TEMP for 10 Days, #10 TAB Prov:FERNANDO YANCEY MD 07/08/18 Lisinopril* (Lisinopril*) 5 Mg Tablet, 2.5 MG PO DAILY for 15 Days, #15 TAB Prov:FERNANDO YANCEY MD 07/08/18 Sulfamethoxazole/Trimethoprim (Sulfamethoxazole-Tmp Ds Tablet) 1 Each Tablet, 1 TAB PO BID for 5 Days, #10 TAB Prov:FERNANDO YANCEY MD 07/08/18 Reported Medications Sodium Bicarbonate* (Sodium Bicarbonate*) 650 Mg Tablet, 650 MG PO TID, TAB 07/05/18 Propylene Glycol-Peg 400 (Systane 0.3-0.4% Eye Drops) 0.3-0.4 % - 30 Ml Drops, 1 DROP BOTH EYES Q4H PRN for DRY EYES, #1 BOTTLE 07/05/18 Pantoprazole* (Protonix*) 40 Mg Tablet.dr, 40 MG PO QAM, TAB 07/05/18 Ondansetron Hcl* (Zofran*) 8 Mg Tablet, 8 MG PO Q6H PRN for NAUSEA AND OR VOMITING, TAB 07/05/18 Metoprolol Succinate* (Toprol XL*) 25 Mg Tab.sr.24h, 25 MG PO BID, #30 TAB 07/05/18 Metformin* (Glucophage*) 500 Mg Tab, 500 MG PO WITH BREAKFAST, #30 TAB 07/05/18 Levothyroxine Sodium* (Synthroid*) 50 Mcg Tablet, 50 MCG PO BEFORE BREAKFAST, #30 TAB 07/05/18 Hydrocodone/Acetaminophen ([place] 5-325 Tablet) 1 Each Tablet, 1 EACH PO Q6 PRN for PAIN, TAB 07/05/18 [place]-3 Fatty Acids/Fish Oil (Fish Oil 1,000 mg Capsule) 1 Each Capsule, 1 EACH PO DAILY, CAP 07/05/18 Cyanocobalamin* (Vitamin B-12*) 50 Mcg Tablet, 50 MCG PO DAILY, TAB 07/05/18 Clopidogrel Bisulfate (Clopidogrel) 75 Mg Tablet, 75 MG PO DAILY, #30 TAB 07/05/18 Atorvastatin Calcium* (Atorvastatin Calcium*) 20 Mg Tablet, 20 MG PO QHS, #30 TAB 07/05/18 Aspirin* (Aspirin* EC) 81 Mg Tablet.dr, 81 MG PO DAILY, TAB 07/05/18 Artificial Tears* (Akwa Oint*) 3.5 Gm Oint, 1 APPLIC BOTH EYES Q1H PRN for DRY EYES, #1 TUB 07/05/18 Albuterol Sulfate (Proair Respiclick) 90 Mcg Aer.pow.ba, 2 PUFFS INHALATION Q4 PRN for WHEEZING, BOTTLE 07/05/18 Medications Current Medications IV Flush (NS 3 ml) 3 ml PER PROTOCOL IV Last administered on 08/05/18at 09:07; Admin Dose 3 ML; Start 07/29/18 at 06:30 Ondansetron HCl (Zofran Inj) 4 mg Q6H PRN IV NAUSEA/VOMITING Last administered on 08/11/18at 04:32; Admin Dose 4 MG; Start 07/29/18 at 06:30 Acetaminophen/ Hydrocodone Bitart ([place] (5/325)) 1 tab Q6H PRN PO .MOD PAIN 4- 6 Last administered on 08/17/18at 14:44; Admin Dose 1 TAB; Start 07/29/18 at 06:30 Pantoprazole (Protonix Tab) 40 mg DAILY@06 PO Last administered on 08/18/18at 06:30; Admin Dose 40 MG; Start 07/29/18 at 06:30 Enoxaparin Sodium (Lovenox) 30 mg DAILY SC Last administered on 08/18/18at 09:40; Admin Dose 30 MG; Start 07/29/18 at 09:00 Diagnostic Test (Pha) (Accu-Chek) 1 ea 02 XX Last administered on 08/18/18at 02:00; Admin Dose 1 EA; Start 07/30/18 at 02:00 Acetaminophen (Tylenol Tab) 650 mg Q6H PRN PO .PAIN 1-3 OR TEMP Last administered on 08/17/18at 05:46; Admin Dose 650 MG; Start 07/29/18 at 07:00 Eye Lubricant (Akwa Oint) 1 applic Q1H PRN BOTH EYES DRY EYES; Start 07/29/18 at 08:00 Aspirin (Halfprin) 81 mg DAILY PO Last administered on 08/18/18 08:41; Admin Dose 81 MG; Start 07/29/18 at 09:00 Atorvastatin Calcium (Lipitor) 20 mg QHS PO Last administered on 08/17/18at 21:33; Admin Dose 20 MG; Start 07/29/18 at 21:00 Clopidogrel Bisulfate (plaVIX) 75 mg DAILY PO Last administered on 08/18/18at 08:40; Admin Dose 75 MG; Start 07/29/18 at 09:00 Cyanocobalamin (Vitamin B12) 50 mcg DAILY PO Last administered on 08/18/18at 08:40; Admin Dose 50 MCG; Start 07/29/18 at 09:00 Levothyroxine Sodium (Synthroid) 50 mcg BEFORE BREAKFAST PO Last administered on 08/18/18at 06:30; Admin Dose 50 MCG; Start 07/29/18 at 07:00 Metoprolol Succinate (Toprol Xl) 25 mg BID PO Last administered on 08/18/18at 08:41; Admin Dose 25 MG; Start 07/29/18 at 09:00 Polyethyl Glycol/ Propylene Glycol (Systane 0.3-0.4% Eye Drops) 1 drop Q4H PRN BOTH EYES DRY EYES; Start 07/29/18 at 08:00 Albuterol (Ventolin Hfa) 2 puff Q4H RESP THERAPY PRN INH WHEEZING; Start 07/29/18 at 09:00 Miscellaneous Information 1 ea NOTE XX ; Start 07/29/18 at 07:00 Glucose (Glutose) 15 gm Q15M PRN PO DECREASED GLUCOSE; Start 07/29/18 at 07:00 Glucose (Glutose) 22.5 gm Q15M PRN PO DECREASED GLUCOSE; Start 07/29/18 at 07:00 Dextrose (D50w Syringe) 25 ml Q15M PRN IV DECREASED GLUCOSE; Start 07/29/18 at 07:00 Dextrose (D50w Syringe) 50 ml Q15M PRN IV DECREASED GLUCOSE; Start 07/29/18 at 07:00 Glucagon (Glucagen) 1 mg Q15M PRN IM DECREASED GLUCOSE; Start 07/29/18 at 07:00 Glucose (Glutose) 15 gm Q15M PRN BUCCAL DECREASED GLUCOSE; Start 07/29/18 at 07:00 Alprazolam (Xanax) 0.25 mg Q8H PRN PO ANXIETY Last administered on 08/17/18 22:30; Admin Dose 0.25 MG; Start 07/29/18 at 12:30 Polyethylene Glycol (Miralax) 17 gm DAILY PO Last administered on 08/17/18 08:44; Admin Dose 17 GM; Start 07/29/18 at 12:30 Docusate Sodium (Colace) 100 mg BID PO Last administered on 08/18/18 08:49; Admin Dose 100 MG; Start 07/31/18 at 21:00 Magnesium Hydroxide (Milk Of Mag) 30 ml Q12H PRN PO STOMACH UPSET/CRAMPING Last administered on 07/31/18 21:28; Admin Dose 30 ML; Start 07/31/18 at 20:00 Al Hydrox/Mg Hydrox/Simethicone (Mag-Al Plus) 30 ml Q6H PRN PO GASTROINTESTINAL UPSET Last administered on 08/16/18at 23:45; Admin Dose 30 ML; Start 08/03/18 at 17:30 Insulin Aspart (Novolog Insulin Pen) (Adult SC Insulin - Moder... AC MEALS AND BEDTIME SC Last administered on 08/17/18at 21:32; Admin Dose 2 UNIT; Start 08/08/18 at 17:30 Insulin Glargine (Lantus) 8 units DAILY@2000 SC Last administered on 08/17/18 21:28; Admin Dose 8 UNITS; Start 08/09/18 at 20:00 Insulin Aspart (Novolog Insulin Pen) 3 unit WITH MEALS SC Last administered on 08/18/18at 09:40; Admin Dose 3 UNIT; Start 08/09/18 at 18:00 Zolpidem Tartrate (Ambien) 5 mg HS PRN PO INSOMNIA Last administered on 08/17/18at 23:00; Admin Dose 5 MG; Start 08/12/18 at 21:30 Albuterol/ Ipratropium (Duoneb) 3 ml Q2H RESP THERAPY PRN HHN sob; Start 08/14/18 at 12:00 Diltiazem HCl (Cardizem Iv) 5 mg Q4 PRN IV HR>70 for Cardiac CTA; Start 08/17/18 at 11:30 Lorazepam (Ativan) 1 mg Q8H PRN IV ANXIETY; Start 08/17/18 at 15:30 Epoetin Glenn-epbx (Retacrit (Non-Esrd)) 20,000 unit TuThSa@1700 SC ; Start 08/18/18 at 17:00 Simethicone (Mylicon) 160 mg Q6H PRN PO DISTENSION/GAS/BLOATING Last administered on 08/18/18at 08:49; Admin Dose 160 MG; Start 08/17/18 at 20:00 Assessment/Plan Assessment/Plan (Daily) 1. Nonoliguric acute kidney injury on top of chronic kidney disease with previous baseline creatinine around 1.2 to 1.4 mg/dL. The etiology of current acute kidney injury is secondary to hemodynamics. Renal function is improved with IV hydration. - continue supportive care, renally dose all meds, avoid nephrotoxins. - start ivf in light of contrast exposure in cta. 2. Anemia. Monitor hemoglobin and hematocrit levels. 3. Mineral bone disorder. Monitor calcium and phosphorus levels. 4. Hypokalemia improved. 5. Coronary artery disease. The patient has a positive stress test, Continue to monitor. Follow up with cardiology. plan on coronary cta today. 6. Hypothyroidism. Continue Synthroid. 7. Diabetes. Continue insulin regimen. 8. Pleural effusion, status post thoracentesis. 9. Liver mass. Findings consistent with metastatic carcinosarcoma. Continue to monitor. Follow up with oncology. 10. 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 - May benefit from a debulking surgery because of the large pelvic mass - Plan for surgical intervention once more stable 11. Bilateral lower extremity edema. - suspect multifactorial including underlying diastolic heart failure, and venous insufficiency. - diuresis as renal function tolerates. hold off now as patient having iv contrast. 12. Elevated CA-19-9. - MRI of the abdomen showing multiple parenchymal and capsular liver lesions. - S/P percutaneous biopsy on 08/09/2018 with pathology: Mass, right lobe of liver, CT-guided core needle biopsies with touch imprints: -- Metastatic malignant mesodermal mixed tumor (carcinosarcoma). 13. Dyspnea - noted with large right pleural effusion s/p thoracentesis with 750ml removed 6.19.19 - CXR s/p thoracentesis: Mild interval decrease in right pleural fluid with mildly improved aeration of the right lung. Moderate residual pleural effusion with associated atelectasis/consolidation of the right middle and lower lobes and perihilar right upper lobe infiltrates remains. - stereoplotter operator following JOHNNY ANGELES MD Aug 18, 2018 09:55
[2018-08-18] MEDS: LORAZEPAM 2 MG INJ IV PRN (09:59)
[2018-08-18] MEDS: DILTIAZEM 25 MG INJ IV PRN (09:59)
[2018-08-18] MEDS: SOD CHLORIDE 0.9% 1,000 ML IV SCH (10:49)
--- NOTE | 2018-08-18 12:58 | CONS ---
Consult Date/Type/Reason Admit Date/Time Jul 29, 2018 at 06:16 Initial Consult Date 08/10/18 Requesting Provider: SANDI MURDOCK NP Date/Time of Note DATE: 08/18/18 TIME: 12:56 Subjective NO acute events - CTA results to follow - BP in good range now. ROS: No fever, no chills, no nausea, no vomiting, no diarrhea/constipation No recent weight changes No chest pain, no PND, no orthopnea - mild SOB No dizziness, blurred vision No thirst, no heat or cold intolerance Objective Vitals Vital Signs Date Temp Pulse Resp B/P (MAP) Pulse Ox O2 O2 Flow FiO2 Time Delivery Rate 08/18/18 97.7 83 20 119/60 99 Nasal 10:57 (79) Cannula 08/18/18 2.0 08:20 08/15/18 27 16:25 Intake and Output 08/17/18 08/17/18 08/18/18 1515:00 23:00 07:00 IntakeIntake Total 240 ml 240 ml OutputOutput Total 240 ml BalanceBalance 0 ml 240 ml Exam General: WN/WD/NAD, AOx 1-2 HEENT: Unicetric/atraumatic/EOMI (follow commands) NECK: JVD elevated, no thyromegaly Lymph: no lymphadenopathy HEART: regular with no S3, II/ systolic murmur at apex LUNGS: Coarse sounds ABD: soft, NT, ND, +BS : Intact Neuro: non focal SKIN: chronic changes EXT: trace edema Results/Medications Result Diagram: 08/18/186 08/18/18 0446 Results 24 hrs Laboratory Tests Test 08/17/18 12:59 08/17/18 17:05 08/17/18 20:48 08/18/18 04:46 Bedside Glucose 214 77 232 H White Blood Count 11.0 H Red Blood Count 2.77 L Hemoglobin 7.9 L Hematocrit 24.9 L Mean Corpuscular 89.9 Volume Mean Corpuscular 28.5 L Hemoglobin Mean Corpuscular 31.7 L Hemoglobin Concent Red Cell 16.6 H Distribution Width Platelet Count 799 H Mean Platelet Volume 9.2 Immature 0.500 H Granulocytes % Neutrophils % 65.5 Lymphocytes % 19.6 Monocytes % 12.2 H Eosinophils % 1.7 Basophils % 0.5 Nucleated Red Blood 0.0 Cells % Immature 0.060 H Granulocytes # Neutrophils # 7.2 Lymphocytes # 2.2 Monocytes # 1.3 H Eosinophils # 0.2 Basophils # 0.1 Nucleated Red Blood 0.0 Cells # Sodium Level 141 Potassium Level 5.2 H Chloride Level 111 H Carbon Dioxide Level 20 L Anion Gap 10 Blood Urea Nitrogen 35 H Creatinine 1.27 H Est Glomerular 42 L Filtrat Rate mL/min Glucose Level 150 Calcium Level 9.1 Test 08/18/18 06:38 08/18/18 08:38 08/18/18 11:51 Bedside Glucose 136 138 119 Home Meds Active Scripts Magnesium Oxide* (Mag-Oxide*) 400 Mg Tablet, 400 MG PO BID for 3 Days, #10 TAB Prov:FERNANDO YANCEY MD 07/08/18 Lactobacillus Rhamnosus GG (Culturelle) 1 Each Capsule, 1 CAP PO BID for 14 Days, #30 CAP Prov:FERNANDO YANCEY MD 07/08/18 Acetaminophen* (Tylenol*) 325 Mg Tablet, 650 MG PO Q6H PRN for .PAIN 1-3 OR TEMP for 10 Days, #10 TAB Prov:FERNANDO YANCEY MD 07/08/18 Lisinopril* (Lisinopril*) 5 Mg Tablet, 2.5 MG PO DAILY for 15 Days, #15 TAB Prov:FERNANDO YANCEY MD 07/08/18 Sulfamethoxazole/Trimethoprim (Sulfamethoxazole-Tmp Ds Tablet) 1 Each Tablet, 1 TAB PO BID for 5 Days, #10 TAB Prov:FERNANDO YANCEY MD 07/08/18 Reported Medications Sodium Bicarbonate* (Sodium Bicarbonate*) 650 Mg Tablet, 650 MG PO TID, TAB 07/05/18 Propylene Glycol-Peg 400 (Systane 0.3-0.4% Eye Drops) 0.3-0.4 % - 30 Ml Drops, 1 DROP BOTH EYES Q4H PRN for DRY EYES, #1 BOTTLE 07/05/18 Pantoprazole* (Protonix*) 40 Mg Tablet.dr, 40 MG PO QAM, TAB 07/05/18 Ondansetron Hcl* (Zofran*) 8 Mg Tablet, 8 MG PO Q6H PRN for NAUSEA AND OR VOMITING, TAB 07/05/18 Metoprolol Succinate* (Toprol XL*) 25 Mg Tab.sr.24h, 25 MG PO BID, #30 TAB 07/05/18 Metformin* (Glucophage*) 500 Mg Tab, 500 MG PO WITH BREAKFAST, #30 TAB 07/05/18 Levothyroxine Sodium* (Synthroid*) 50 Mcg Tablet, 50 MCG PO BEFORE BREAKFAST, #30 TAB 07/05/18 Hydrocodone/Acetaminophen ([place] 5-325 Tablet) 1 Each Tablet, 1 EACH PO Q6 PRN for PAIN, TAB 07/05/18 [place]-3 Fatty Acids/Fish Oil (Fish Oil 1,000 mg Capsule) 1 Each Capsule, 1 EACH PO DAILY, CAP 07/05/18 Cyanocobalamin* (Vitamin B-12*) 50 Mcg Tablet, 50 MCG PO DAILY, TAB 07/05/18 Clopidogrel Bisulfate (Clopidogrel) 75 Mg Tablet, 75 MG PO DAILY, #30 TAB 07/05/18 Atorvastatin Calcium* (Atorvastatin Calcium*) 20 Mg Tablet, 20 MG PO QHS, #30 TAB 07/05/18 Aspirin* (Aspirin* EC) 81 Mg Tablet.dr, 81 MG PO DAILY, TAB 07/05/18 Artificial Tears* (Akwa Oint*) 3.5 Gm Oint, 1 APPLIC BOTH EYES Q1H PRN for DRY EYES, #1 TUB 07/05/18 Albuterol Sulfate (Proair Respiclick) 90 Mcg Aer.pow.ba, 2 PUFFS INHALATION Q4 PRN for WHEEZING, BOTTLE 07/05/18 Medications Current Medications IV Flush (NS 3 ml) 3 ml PER PROTOCOL IV Last administered on 08/05/18at 09:07; Admin Dose 3 ML; Start 07/29/18 at 06:30 Ondansetron HCl (Zofran Inj) 4 mg Q6H PRN IV NAUSEA/VOMITING Last administered on 08/11/18at 04:32; Admin Dose 4 MG; Start 07/29/18 at 06:30 Acetaminophen/ Hydrocodone Bitart ([place] (5/325)) 1 tab Q6H PRN PO .MOD PAIN 4- 6 Last administered on 08/17/18at 14:44; Admin Dose 1 TAB; Start 07/29/18 at 06:30 Pantoprazole (Protonix Tab) 40 mg DAILY@06 PO Last administered on 08/18/18at 06:30; Admin Dose 40 MG; Start 07/29/18 at 06:30 Enoxaparin Sodium (Lovenox) 30 mg DAILY SC Last administered on 08/18/18 09:40; Admin Dose 30 MG; Start 07/29/18 at 09:00 Diagnostic Test (Pha) (Accu-Chek) 1 ea 02 XX Last administered on 08/18/18 02:00; Admin Dose 1 EA; Start 07/30/18 at 02:00 Acetaminophen (Tylenol Tab) 650 mg Q6H PRN PO .PAIN 1-3 OR TEMP Last administered on 08/17/18 05:46; Admin Dose 650 MG; Start 07/29/18 at 07:00 Eye Lubricant (Akwa Oint) 1 applic Q1H PRN BOTH EYES DRY EYES; Start 07/29/18 at 08:00 Aspirin (Halfprin) 81 mg DAILY PO Last administered on 08/18/18 08:41; Admin Dose 81 MG; Start 07/29/18 at 09:00 Atorvastatin Calcium (Lipitor) 20 mg QHS PO Last administered on 08/17/18 21:33; Admin Dose 20 MG; Start 07/29/18 at 21:00 Clopidogrel Bisulfate (plaVIX) 75 mg DAILY PO Last administered on 08/18/18 08:40; Admin Dose 75 MG; Start 07/29/18 at 09:00 Cyanocobalamin (Vitamin B12) 50 mcg DAILY PO Last administered on 08/18/18 08:40; Admin Dose 50 MCG; Start 07/29/18 at 09:00 Levothyroxine Sodium (Synthroid) 50 mcg BEFORE BREAKFAST PO Last administered on 08/18/18 06:30; Admin Dose 50 MCG; Start 07/29/18 at 07:00 Metoprolol Succinate (Toprol Xl) 25 mg BID PO Last administered on 08/18/18 08:41; Admin Dose 25 MG; Start 07/29/18 at 09:00 Polyethyl Glycol/ Propylene Glycol (Systane 0.3-0.4% Eye Drops) 1 drop Q4H PRN BOTH EYES DRY EYES; Start 07/29/18 at 08:00 Albuterol (Ventolin Hfa) 2 puff Q4H RESP THERAPY PRN INH WHEEZING; Start 07/29/18 at 09:00 Miscellaneous Information 1 ea NOTE XX ; Start 07/29/18 at 07:00 Glucose (Glutose) 15 gm Q15M PRN PO DECREASED GLUCOSE; Start 07/29/18 at 07:00 Glucose (Glutose) 22.5 gm Q15M PRN PO DECREASED GLUCOSE; Start 07/29/18 at 07:00 Dextrose (D50w Syringe) 25 ml Q15M PRN IV DECREASED GLUCOSE; Start 07/29/18 at 07:00 Dextrose (D50w Syringe) 50 ml Q15M PRN IV DECREASED GLUCOSE; Start 07/29/18 at 07:00 Glucagon (Glucagen) 1 mg Q15M PRN IM DECREASED GLUCOSE; Start 07/29/18 at 07:00 Glucose (Glutose) 15 gm Q15M PRN BUCCAL DECREASED GLUCOSE; Start 07/29/18 at 07:00 Alprazolam (Xanax) 0.25 mg Q8H PRN PO ANXIETY Last administered on 08/17/18at 22:30; Admin Dose 0.25 MG; Start 07/29/18 at 12:30 Polyethylene Glycol (Miralax) 17 gm DAILY PO Last administered on 08/17/18at 08:44; Admin Dose 17 GM; Start 07/29/18 at 12:30 Docusate Sodium (Colace) 100 mg BID PO Last administered on 08/18/18at 08:49; Admin Dose 100 MG; Start 07/31/18 at 21:00 Magnesium Hydroxide (Milk Of Mag) 30 ml Q12H PRN PO STOMACH UPSET/CRAMPING Last administered on 07/31/18at 21:28; Admin Dose 30 ML; Start 07/31/18 at 20:00 Al Hydrox/Mg Hydrox/Simethicone (Mag-Al Plus) 30 ml Q6H PRN PO GASTROINTESTINAL UPSET Last administered on 08/16/18at 23:45; Admin Dose 30 ML; Start 08/03/18 at 17:30 Insulin Aspart (Novolog Insulin Pen) (Adult SC Insulin - Moder... AC MEALS AND BEDTIME SC Last administered on 08/17/18at 21:32; Admin Dose 2 UNIT; Start 08/08/18 at 17:30 Insulin Glargine (Lantus) 8 units DAILY@2000 SC Last administered on 08/17/18at 21:28; Admin Dose 8 UNITS; Start 08/09/18 at 20:00 Insulin Aspart (Novolog Insulin Pen) 3 unit WITH MEALS SC Last administered on 08/18/18at 11:54; Admin Dose 3 UNIT; Start 08/09/18 at 18:00 Zolpidem Tartrate (Ambien) 5 mg HS PRN PO INSOMNIA Last administered on 08/17/18at 23:00; Admin Dose 5 MG; Start 08/12/18 at 21:30 Albuterol/ Ipratropium (Duoneb) 3 ml Q2H RESP THERAPY PRN HHN sob; Start 08/14/18 at 12:00 Diltiazem HCl (Cardizem Iv) 5 mg Q4 PRN IV HR>70 for Cardiac CTA Last administered on 08/18/18at 09:59; Admin Dose 5 MG; Start 08/17/18 at 11:30 Lorazepam (Ativan) 1 mg Q8H PRN IV ANXIETY Last administered on 08/18/18at 09:59; Admin Dose 1 MG; Start 08/17/18 at 15:30 Epoetin Glenn-epbx (Retacrit (Non-Esrd)) 20,000 unit TuThSa@1700 SC ; Start 08/18/18 at 17:00 Simethicone (Mylicon) 160 mg Q6H PRN PO DISTENSION/GAS/BLOATING Last administered on 08/18/18at 08:49; Admin Dose 160 MG; Start 08/17/18 at 20:00 Sodium Chloride 1,000 ml @ 50 mls/hr Q20H IV Last administered on 08/18/18at 10:49; Admin Dose 50 MLS/HR; Start 08/18/18 at 09:54 Assessment/Plan Hospital Course (Demo Recall) 1.Preop-neg trop .3 including this am. NL EF by echo - stres test with small rev defect - will defer to Dr. sim if LHC is warranted - med Rx for now - CTA to follow. 2.abnl ecg-ECG today with inferior ST elevation but with normal concaviity and Q's isolated to lead 3 No chest pain or sob/neg trop this am. ? pericarditits. NL EF by echo this admit - no CP now - currently, no ectopy on tele VS stable now. 3.Uterine cancer - oncology follows 4.DM - on mes, keep euglycemic 5.HTN - well controlled, will monitor clinically - om meds 6.HL 7. ARF - CR better at 1.27. TUAN LANGLEY MD Aug 18, 2018 12:58
--- NOTE | 2018-08-18 14:14 | PN ---
Date/Time of Note Date/Time of Note DATE: 08/18/18 TIME: 14:12 Assessment/Plan VTE Prophylaxis Risk score (from Ns)>0 risk: 6 SCD applied (from Ns): No SCD contraindicated: other Pharmacological prophylaxis: LMWH Lines/Catheters IV Catheter Type (from [facility]): Peripheral IV Urinary Cath still in place: No Assessment/Plan Hospital Course 1. 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 - May benefit from a debulking surgery because of the large pelvic mass - Plan for surgical intervention once more stable 2. Bilateral lower extremity edema. - suspect multifactorial including underlying diastolic heart failure, and venous insufficiency. - diuresis as renal function tolerates 3. Peripheral artery disease. - vascular surgeon following - Continue aspirin plus Plavix. - Continue statins. 4. Diabetes mellitus. - Hemoglobin A1c 6.3. - Continue sliding scale insulin along with pre-meal insulin and basal. 5. Elevated CA-19-9. - MRI of the abdomen showing multiple parenchymal and capsular liver lesions. - S/P percutaneous biopsy on 08/09/2018 with pathology: Mass, right lobe of liver, CT-guided core needle biopsies with touch imprints: -- Metastatic malignant mesodermal mixed tumor (carcinosarcoma). 6. Constipation. - Continue bowel regimen. - GI following 7. Hypothyroidism. - Continue Synthroid. 8. Acute kidney injury. - animal husbandry professor following 9. Normocytic anemia. - Monitor H&H closely. - Continue iron supplements. 10. s/p Stress test 08.13.18 with small partially reversible perfusion defect in the distal anterior wall - plan for CTA 11. Dyspnea - noted with large right pleural effusion s/p thoracentesis with 750ml removed 08.15.18 - follow up pleural studies. - CXR s/p thoracentesis: Mild interval decrease in right pleural fluid with mildly improved aeration of the right lung. Moderate residual pleural effusion with associated atelectasis/consolidation of the right middle and lower lobes and perihilar right upper lobe infiltrates remains. - size stamper following Disposition and plan: At present patient is not a candidate for chemotherapy. Tentative plan for pelvic surgery for removing uterine mass once more medically stable. Medical optimization in progress. Was reported patient's son Rk is seeking for aggressive therapy regarding uterine mass. Patient is status post Lexiscan stress test on August 13, 2018 showing skin to graphic abnormalities consistent with a small partially reversible perfusion defect in the distal anterior wall. plan for CTA. Patient heart rate reportedly still too fast to effectively have CTA done. Follow-up with munitions handler supervisor recommendations. Continue medical opti mization. anxiolytics prn Discussed case and plan with oly Beckman Discussed POC with Dr. Allen Result Diagram: 08/18/18 0446 08/18/18 0446 Results 24hrs Laboratory Tests Test 08/17/18 17:05 08/17/18 20:48 08/18/18 04:46 08/18/18 06:38 Bedside Glucose 77 232 H 136 White Blood Count 11.0 H Red Blood Count 2.77 L Hemoglobin 7.9 L Hematocrit 24.9 L Mean Corpuscular 89.9 Volume Mean Corpuscular 28.5 L Hemoglobin Mean Corpuscular 31.7 L Hemoglobin Concent Red Cell 16.6 H Distribution Width Platelet Count 799 H Mean Platelet Volume 9.2 Immature 0.500 H Granulocytes % Neutrophils % 65.5 Lymphocytes % 19.6 Monocytes % 12.2 H Eosinophils % 1.7 Basophils % 0.5 Nucleated Red Blood 0.0 Cells % Immature 0.060 H Granulocytes # Neutrophils # 7.2 Lymphocytes # 2.2 Monocytes # 1.3 H Eosinophils # 0.2 Basophils # 0.1 Nucleated Red Blood 0.0 Cells # Sodium Level 141 Potassium Level 5.2 H Chloride Level 111 H Carbon Dioxide Level 20 L Anion Gap 10 Blood Urea Nitrogen 35 H Creatinine 1.27 H Est Glomerular 42 L Filtrat Rate mL/min Glucose Level 150 Calcium Level 9.1 Test 08/18/18 08:38 08/18/18 11:51 Bedside Glucose 138 119 Subjective 24 Hr Interval Summary Free Text/Dictation Anxious during visit. No specific complaints. Exam/Review of Systems Exam Vitals Vital Signs Date Temp Pulse Resp B/P (MAP) Pulse Ox O2 O2 Flow FiO2 Time Delivery Rate 08/18/18 81 12:04 08/18/18 97.7 20 119/60 99 Nasal 10:57 (79) Cannula 08/18/18 2.0 08:20 08/15/18 27 16:25 Intake and Output 08/17/18 08/17/18 08/18/18 1515:00 23:00 07:00 IntakeIntake Total 240 ml 240 ml OutputOutput Total 240 ml BalanceBalance 0 ml 240 ml Exam Constitutional: alert Psych: anxiety Head: normocephalic Neck: supple, non-tender Respiratory: diminished breath sounds (right lung field ) Gastrointestinal: soft, non-tender Musculoskeletal: swelling (ble ) Neurological: nl mental status, nl speech Results Results 24hrs Laboratory Tests Test 08/17/18 17:05 08/17/18 20:48 08/18/18 04:46 08/18/18 06:38 Bedside Glucose 77 232 H 136 White Blood Count 11.0 H Red Blood Count 2.77 L Hemoglobin 7.9 L Hematocrit 24.9 L Mean Corpuscular 89.9 Volume Mean Corpuscular 28.5 L Hemoglobin Mean Corpuscular 31.7 L Hemoglobin Concent Red Cell 16.6 H Distribution Width Platelet Count 799 H Mean Platelet Volume 9.2 Immature 0.500 H Granulocytes % Neutrophils % 65.5 Lymphocytes % 19.6 Monocytes % 12.2 H Eosinophils % 1.7 Basophils % 0.5 Nucleated Red Blood 0.0 Cells % Immature 0.060 H Granulocytes # Neutrophils # 7.2 Lymphocytes # 2.2 Monocytes # 1.3 H Eosinophils # 0.2 Basophils # 0.1 Nucleated Red Blood 0.0 Cells # Sodium Level 141 Potassium Level 5.2 H Chloride Level 111 H Carbon Dioxide Level 20 L Anion Gap 10 Blood Urea Nitrogen 35 H Creatinine 1.27 H Est Glomerular 42 L Filtrat Rate mL/min Glucose Level 150 Calcium Level 9.1 Test 08/18/18 08:38 08/18/18 11:51 Bedside Glucose 138 119 Medications Medication Current Medications IV Flush (NS 3 ml) 3 ml PER PROTOCOL IV Last administered on 08/05/18 09:07; Admin Dose 3 ML; Start 07/29/18 at 06:30 Ondansetron HCl (Zofran Inj) 4 mg Q6H PRN IV NAUSEA/VOMITING Last administered on 08/11/18 04:32; Admin Dose 4 MG; Start 07/29/18 at 06:30 Acetaminophen/ Hydrocodone Bitart ([place] (5/325)) 1 tab Q6H PRN PO .MOD PAIN 4- 6 Last administered on 08/17/18at 14:44; Admin Dose 1 TAB; Start 07/29/18 at 06:30 Pantoprazole (Protonix Tab) 40 mg DAILY@06 PO Last administered on 08/18/18 06:30; Admin Dose 40 MG; Start 07/29/18 at 06:30 Enoxaparin Sodium (Lovenox) 30 mg DAILY SC Last administered on 08/18/18 09:40; Admin Dose 30 MG; Start 07/29/18 at 09:00 Diagnostic Test (Pha) (Accu-Chek) 1 ea 02 XX Last administered on 08/18/18 02:00; Admin Dose 1 EA; Start 07/30/18 at 02:00 Acetaminophen (Tylenol Tab) 650 mg Q6H PRN PO .PAIN 1-3 OR TEMP Last administered on 08/17/18 05:46; Admin Dose 650 MG; Start 07/29/18 at 07:00 Eye Lubricant (Akwa Oint) 1 applic Q1H PRN BOTH EYES DRY EYES; Start 07/29/18 at 08:00 Aspirin (Halfprin) 81 mg DAILY PO Last administered on 08/18/18 08:41; Admin Dose 81 MG; Start 07/29/18 at 09:00 Atorvastatin Calcium (Lipitor) 20 mg QHS PO Last administered on 08/17/18 21:33; Admin Dose 20 MG; Start 07/29/18 at 21:00 Clopidogrel Bisulfate (plaVIX) 75 mg DAILY PO Last administered on 08/18/18 08:40; Admin Dose 75 MG; Start 07/29/18 at 09:00 Cyanocobalamin (Vitamin B12) 50 mcg DAILY PO Last administered on 08/18/18 08:40; Admin Dose 50 MCG; Start 07/29/18 at 09:00 Levothyroxine Sodium (Synthroid) 50 mcg BEFORE BREAKFAST PO Last administered on 08/18/18 06:30; Admin Dose 50 MCG; Start 07/29/18 at 07:00 Metoprolol Succinate (Toprol Xl) 25 mg BID PO Last administered on 08/18/18 08:41; Admin Dose 25 MG; Start 07/29/18 at 09:00 Polyethyl Glycol/ Propylene Glycol (Systane 0.3-0.4% Eye Drops) 1 drop Q4H PRN BOTH EYES DRY EYES; Start 07/29/18 at 08:00 Albuterol (Ventolin Hfa) 2 puff Q4H RESP THERAPY PRN INH WHEEZING; Start 07/29/18 at 09:00 Miscellaneous Information 1 ea NOTE XX ; Start 07/29/18 at 07:00 Glucose (Glutose) 15 gm Q15M PRN PO DECREASED GLUCOSE; Start 07/29/18 at 07:00 Glucose (Glutose) 22.5 gm Q15M PRN PO DECREASED GLUCOSE; Start 07/29/18 at 07:00 Dextrose (D50w Syringe) 25 ml Q15M PRN IV DECREASED GLUCOSE; Start 07/29/18 at 07:00 Dextrose (D50w Syringe) 50 ml Q15M PRN IV DECREASED GLUCOSE; Start 07/29/18 at 07:00 Glucagon (Glucagen) 1 mg Q15M PRN IM DECREASED GLUCOSE; Start 07/29/18 at 07:00 Glucose (Glutose) 15 gm Q15M PRN BUCCAL DECREASED GLUCOSE; Start 07/29/18 at 07:00 Alprazolam (Xanax) 0.25 mg Q8H PRN PO ANXIETY Last administered on 08/17/18at 22:30; Admin Dose 0.25 MG; Start 07/29/18 at 12:30 Polyethylene Glycol (Miralax) 17 gm DAILY PO Last administered on 08/17/18at 08:44; Admin Dose 17 GM; Start 07/29/18 at 12:30 Docusate Sodium (Colace) 100 mg BID PO Last administered on 08/18/18at 08:49; Admin Dose 100 MG; Start 07/31/18 at 21:00 Magnesium Hydroxide (Milk Of Mag) 30 ml Q12H PRN PO STOMACH UPSET/CRAMPING Last administered on 07/31/18at 21:28; Admin Dose 30 ML; Start 07/31/18 at 20:00 Al Hydrox/Mg Hydrox/Simethicone (Mag-Al Plus) 30 ml Q6H PRN PO GASTROINTESTINAL UPSET Last administered on 08/16/18at 23:45; Admin Dose 30 ML; Start 08/03/18 at 17:30 Insulin Aspart (Novolog Insulin Pen) (Adult SC Insulin - Moder... AC MEALS AND BEDTIME SC Last administered on 08/17/18at 21:32; Admin Dose 2 UNIT; Start 08/08/18 at 17:30 Insulin Glargine (Lantus) 8 units DAILY@2000 SC Last administered on 08/17/18 21:28; Admin Dose 8 UNITS; Start 08/09/18 at 20:00 Insulin Aspart (Novolog Insulin Pen) 3 unit WITH MEALS SC Last administered on 08/18/18at 11:54; Admin Dose 3 UNIT; Start 08/09/18 at 18:00 Zolpidem Tartrate (Ambien) 5 mg HS PRN PO INSOMNIA Last administered on 08/17/18at 23:00; Admin Dose 5 MG; Start 08/12/18 at 21:30 Albuterol/ Ipratropium (Duoneb) 3 ml Q2H RESP THERAPY PRN HHN sob; Start 08/14/18 at 12:00 Diltiazem HCl (Cardizem Iv) 5 mg Q4 PRN IV HR>70 for Cardiac CTA Last administered on 08/18/18 09:59; Admin Dose 5 MG; Start 08/17/18 at 11:30 Lorazepam (Ativan) 1 mg Q8H PRN IV ANXIETY Last administered on 08/18/18 09:59; Admin Dose 1 MG; Start 08/17/18 at 15:30 Epoetin Glenn-epbx (Retacrit (Non-Esrd)) 20,000 unit TuThSa@1700 SC ; Start 08/18/18 at 17:00 Simethicone (Mylicon) 160 mg Q6H PRN PO DISTENSION/GAS/BLOATING Last administered on 08/18/18at 08:49; Admin Dose 160 MG; Start 08/17/18 at 20:00 Sodium Chloride 1,000 ml @ 50 mls/hr Q20H IV Last administered on 08/18/18at 10:49; Admin Dose 50 MLS/HR; Start 08/18/18 at 09:54 FIDE MAGUIRE NP Aug 18, 2018 14:14
[2018-08-18] MEDS: ALPRAZOLAM 0.25 MG TAB PO PRN (14:50)
--- NOTE | 2018-08-18 16:55 | PN ---
Date/Time of Note Date/Time of Note DATE: 08/18/18 TIME: 16:54 Assessment/Plan VTE Prophylaxis Risk score (from [facility] [place] [facility])>0 risk: 6 SCD applied (from [facility] [place]): No SCD contraindicated: other Pharmacological prophylaxis: heparin Lines/Catheters IV C[facility]ter Type (from [facility]): Peripheral IV Urinary Cath still in place: No Assessment/Plan Assessment/Plan 1. Metastatic carcinosarcoma of uterus. 2. Anemia with some degree of iron deficiency. As noted, the patient does have carcinosarcoma (mesodermal mixed tumor) which is metastatic to the liver. We will request genomic studies in order to determine whether this tumor may be responsive to PD-L1 inhibitors or the patient may have other fusion abnormalities. As noted, the patient's anemia is likely mixture of iron deficiency anemia and anemia of chronic disease. The patient's renal function is suppressed as well. We will obtain erythropoietin level and initiate therapy with erythropoietin. The patient has received parenteral iron with stable blood counts . Result Diagram: 08/18/18 0446 08/18/18 0446 Results 24hrs Laboratory Tests Test 08/17/18 17:05 08/17/18 20:48 08/18/18 04:46 08/18/18 06:38 Bedside Glucose 77 232 H 136 White Blood Count 11.0 H Red Blood Count 2.77 L Hemoglobin 7.9 L Hematocrit 24.9 L Mean Corpuscular 89.9 Volume Mean Corpuscular 28.5 L Hemoglobin Mean Corpuscular 31.7 L Hemoglobin Concent Red Cell 16.6 H Distribution Width Platelet Count 799 H Mean Platelet Volume 9.2 Immature 0.500 H Granulocytes % Neutrophils % 65.5 Lymphocytes % 19.6 Monocytes % 12.2 H Eosinophils % 1.7 Basophils % 0.5 Nucleated Red Blood 0.0 Cells % Immature 0.060 H Granulocytes # Neutrophils # 7.2 Lymphocytes # 2.2 Monocytes # 1.3 H Eosinophils # 0.2 Basophils # 0.1 Nucleated Red Blood 0.0 Cells # Sodium Level 141 Potassium Level 5.2 H Chloride Level 111 H Carbon Dioxide Level 20 L Anion Gap 10 Blood Urea Nitrogen 35 H Creatinine 1.27 H Est Glomerular 42 L Filtrat Rate mL/min Glucose Level 150 Calcium Level 9.1 Test 08/18/18 08:38 08/18/18 11:51 Bedside Glucose 138 119 Subjective 24 Hr Interval Summary Free Text/Dictation Patient is awake, alert, wanting to eat Exam/Review of Systems Exam Vitals Vital Signs Date Temp Pulse Resp B/P (MAP) Pulse Ox O2 O2 Flow FiO2 Time Delivery Rate 08/18/18 81 16:00 08/18/18 97.4 20 126/61 100 Nasal 15:20 (82) Cannula 08/18/18 2.0 08:20 08/15/18 27 16:25 Intake and Output 08/17/18 08/17/18 08/18/18 1515:00 23:00 07:00 IntakeIntake Total 240 ml 240 ml OutputOutput Total 240 ml BalanceBalance 0 ml 240 ml Constitutional: alert, oriented Psych: no complaints, nl mood/affect Eyes: nl conjunctiva, EOMI ENMT: nl external ears & nose, nl lips & teeth Neck: supple, non-tender Respiratory: clear to auscultation, normal air movement Cardiovascular: regular rate and rhythm, nl pulses Gastrointestinal: soft, non-tender Extremities: normal pulses Results Results 24hrs Laboratory Tests Test 08/17/18 17:05 08/17/18 20:48 08/18/18 04:46 08/18/18 06:38 Bedside Glucose 77 232 H 136 White Blood Count 11.0 H Red Blood Count 2.77 L Hemoglobin 7.9 L Hematocrit 24.9 L Mean Corpuscular 89.9 Volume Mean Corpuscular 28.5 L Hemoglobin Mean Corpuscular 31.7 L Hemoglobin Concent Red Cell 16.6 H Distribution Width Platelet Count 799 H Mean Platelet Volume 9.2 Immature 0.500 H Granulocytes % Neutrophils % 65.5 Lymphocytes % 19.6 Monocytes % 12.2 H Eosinophils % 1.7 Basophils % 0.5 Nucleated Red Blood 0.0 Cells % Immature 0.060 H Granulocytes # Neutrophils # 7.2 Lymphocytes # 2.2 Monocytes # 1.3 H Eosinophils # 0.2 Basophils # 0.1 Nucleated Red Blood 0.0 Cells # Sodium Level 141 Potassium Level 5.2 H Chloride Level 111 H Carbon Dioxide Level 20 L Anion Gap 10 Blood Urea Nitrogen 35 H Creatinine 1.27 H Est Glomerular 42 L Filtrat Rate mL/min Glucose Level 150 Calcium Level 9.1 Test 08/18/18 08:38 08/18/18 11:51 Bedside Glucose 138 119 Medications Medication Current Medications IV Flush (NS 3 ml) 3 ml PER PROTOCOL IV Last administered on 08/05/18 09:07; Admin Dose 3 ML; Start 07/29/18 at 06:30 Ondansetron HCl (Zofran Inj) 4 mg Q6H PRN IV NAUSEA/VOMITING Last administered on 08/11/18 04:32; Admin Dose 4 MG; Start 07/29/18 at 06:30 Acetaminophen/ Hydrocodone Bitart ([place] (5/325)) 1 tab Q6H PRN PO .MOD PAIN 4- 6 Last administered on 08/17/18 14:44; Admin Dose 1 TAB; Start 07/29/18 at 06:30 Pantoprazole (Protonix Tab) 40 mg DAILY@06 PO Last administered on 08/18/18 06:30; Admin Dose 40 MG; Start 07/29/18 at 06:30 Enoxaparin Sodium (Lovenox) 30 mg DAILY SC Last administered on 08/18/18 09:40; Admin Dose 30 MG; Start 07/29/18 at 09:00 Diagnostic Test (Pha) (Accu-Chek) 1 ea 02 XX Last administered on 08/18/18 02:00; Admin Dose 1 EA; Start 07/30/18 at 02:00 Acetaminophen (Tylenol Tab) 650 mg Q6H PRN PO .PAIN 1-3 OR TEMP Last administered on 08/17/18 05:46; Admin Dose 650 MG; Start 07/29/18 at 07:00 Eye Lubricant (Akwa Oint) 1 applic Q1H PRN BOTH EYES DRY EYES; Start 07/29/18 at 08:00 Aspirin (Halfprin) 81 mg DAILY PO Last administered on 08/18/18 08:41; Admin Dose 81 MG; Start 07/29/18 at 09:00 Atorvastatin Calcium (Lipitor) 20 mg QHS PO Last administered on 08/17/18 21:33; Admin Dose 20 MG; Start 07/29/18 at 21:00 Clopidogrel Bisulfate (plaVIX) 75 mg DAILY PO Last administered on 08/18/18 08:40; Admin Dose 75 MG; Start 07/29/18 at 09:00 Cyanocobalamin (Vitamin B12) 50 mcg DAILY PO Last administered on 08/18/18 08:40; Admin Dose 50 MCG; Start 07/29/18 at 09:00 Levothyroxine Sodium (Synthroid) 50 mcg BEFORE BREAKFAST PO Last administered on 08/18/18 06:30; Admin Dose 50 MCG; Start 07/29/18 at 07:00 Metoprolol Succinate (Toprol Xl) 25 mg BID PO Last administered on 08/18/18at 08:41; Admin Dose 25 MG; Start 07/29/18 at 09:00 Polyethyl Glycol/ Propylene Glycol (Systane 0.3-0.4% Eye Drops) 1 drop Q4H PRN BOTH EYES DRY EYES; Start 07/29/18 at 08:00 Albuterol (Ventolin Hfa) 2 puff Q4H RESP THERAPY PRN INH WHEEZING; Start 07/29/18 at 09:00 Miscellaneous Information 1 ea NOTE XX ; Start 07/29/18 at 07:00 Glucose (Glutose) 15 gm Q15M PRN PO DECREASED GLUCOSE; Start 07/29/18 at 07:00 Glucose (Glutose) 22.5 gm Q15M PRN PO DECREASED GLUCOSE; Start 07/29/18 at 07:00 Dextrose (D50w Syringe) 25 ml Q15M PRN IV DECREASED GLUCOSE; Start 07/29/18 at 07:00 Dextrose (D50w Syringe) 50 ml Q15M PRN IV DECREASED GLUCOSE; Start 07/29/18 at 07:00 Glucagon (Glucagen) 1 mg Q15M PRN IM DECREASED GLUCOSE; Start 07/29/18 at 07:00 Glucose (Glutose) 15 gm Q15M PRN BUCCAL DECREASED GLUCOSE; Start 07/29/18 at 07:00 Alprazolam (Xanax) 0.25 mg Q8H PRN PO ANXIETY Last administered on 08/18/18at 14:50; Admin Dose 0.25 MG; Start 07/29/18 at 12:30 Polyethylene Glycol (Miralax) 17 gm DAILY PO Last administered on 08/17/18at 08:44; Admin Dose 17 GM; Start 07/29/18 at 12:30 Docusate Sodium (Colace) 100 mg BID PO Last administered on 08/18/18at 08:49; Admin Dose 100 MG; Start 07/31/18 at 21:00 Magnesium Hydroxide (Milk Of Mag) 30 ml Q12H PRN PO STOMACH UPSET/CRAMPING Last administered on 07/31/18 21:28; Admin Dose 30 ML; Start 07/31/18 at 20:00 Al Hydrox/Mg Hydrox/Simethicone (Mag-Al Plus) 30 ml Q6H PRN PO GASTROINTESTINAL UPSET Last administered on 08/16/18 23:45; Admin Dose 30 ML; Start 08/03/18 at 17:30 Insulin Aspart (Novolog Insulin Pen) (Adult SC Insulin - Moder... AC MEALS AND BEDTIME SC Last administered on 08/17/18 21:32; Admin Dose 2 UNIT; Start 08/08/18 at 17:30 Insulin Glargine (Lantus) 8 units DAILY@2000 SC Last administered on 08/17/18 21:28; Admin Dose 8 UNITS; Start 08/09/18 at 20:00 Insulin Aspart (Novolog Insulin Pen) 3 unit WITH MEALS SC Last administered on 08/18/18 11:54; Admin Dose 3 UNIT; Start 08/09/18 at 18:00 Zolpidem Tartrate (Ambien) 5 mg HS PRN PO INSOMNIA Last administered on 08/17/18 23:00; Admin Dose 5 MG; Start 08/12/18 at 21:30 Albuterol/ Ipratropium (Duoneb) 3 ml Q2H RESP THERAPY PRN HHN sob; Start 08/14/18 at 12:00 Diltiazem HCl (Cardizem Iv) 5 mg Q4 PRN IV HR>70 for Cardiac CTA Last administered on 08/18/18 09:59; Admin Dose 5 MG; Start 08/17/18 at 11:30 Lorazepam (Ativan) 1 mg Q8H PRN IV ANXIETY Last administered on 08/18/18 09:59; Admin Dose 1 MG; Start 08/17/18 at 15:30 Epoetin Glenn-epbx (Retacrit (Non-Esrd)) 20,000 unit TuThSa@1700 SC ; Start 08/18/18 at 17:00 Simethicone (Mylicon) 160 mg Q6H PRN PO DISTENSION/GAS/BLOATING Last administer ed on 08/18/18 08:49; Admin Dose 160 MG; Start 08/17/18 at 20:00 Sodium Chloride 1,000 ml @ 50 mls/hr Q20H IV Last administered on 6/22/19at 10:49; Admin Dose 50 MLS/HR; Start 08/18/18 at 09:54 HARVINDER GALINDO MD Aug 18, 2018 16:55
[2018-08-18] MEDS: EPOETIN ALFA-EPBX (NON-ESRD 10,000 UNIT/ML VIAL SC SCH (17:14)
[2018-08-18] MEDS: HYDROCODONE/APAP (5/325) TAB PO PRN (17:14)
[2018-08-18] MEDS: ONDANSETRON 4 MG INJ IV PRN (18:34)
[2018-08-18] MEDS: ATORVASTATIN 20 MG TAB PO SCH (20:26)
[2018-08-18] MEDS: ZOLPIDEM 5 MG TAB PO PRN (20:35)
[2018-08-18] MEDS: INSULIN GLARGINE [LANTus] (100 UNITS/ML) SYG SC SCH (20:59)
[2018-08-19] VITALS (78 sets, daily range): BP systolic 44–145; BP diastolic 31–89; PULSE 59–113; RESP 13–35
[2018-08-19] MEDS: ALPRAZOLAM 0.25 MG TAB PO PRN (00:10)
[2018-08-19] MEDS ORDERED: DIPHENHYDRAMINE 50 MG INJ IV ONE (00:30)
[2018-08-19] MEDS ORDERED: HALOPERIDOL 5 MG INJ IM ONE (00:30)
[2018-08-19] MEDS: ACCU-CHEK XX SCH (02:00)
[2018-08-19] MEDS: HYDROCODONE/APAP (5/325) TAB PO PRN (03:42)
[2018-08-19] MEDS: DILTIAZEM 25 MG INJ IV PRN (03:50)
--- NOTE | 2018-08-19 04:38 | PN ---
DATE: 08/18/2018 SUBJECTIVE: Chart reviewed. Oncology followup noted. The patient currently on 2 liter nasal cannul a, saturating 99% and does not appear in acute distress. PHYSICAL EXAMINATION: VITAL SIGNS: Blood pressure 119/60, pulse 83, respirations 20, temperature 97.7. HEENT: Pupils are equal and react to light. NECK: Supple. No JVD noted, no cervical adenopathy noted. LUNGS: Decreased breath sounds at the right base. CARDIOVASCULAR: S1 and S2 normal. ABDOMEN: Soft, nontender. No organomegaly or masses noted. EXTREMITIES: No clubbing or cyanosis noted. NEUROLOGIC: Awake. LABORATORY DATA: Sodium 141, potassium 5.2, chloride 111, CO2 20, BUN 35, creatinine 1.27, glucose 1 50, WBC 11, hemoglobin 7.9, hematocrit 24.9, platelets of 99. IMPRESSION: 1. Carcinosarcoma of uterus with mets to the liver. 2. Right pleural effusion, status post thoracentesis. 3. Anemia. PLAN: Oncology followup noted. If recurrent pleural effusion, the patient may require a PleurX cath eter placement. Dictated By: JORDAN GUZMAN MD, MA/EMA Conf#: [id number] DID#: [id number] CC: TAN MAIER MD;*EndCC*
[2018-08-19] MEDS: SOD CHLORIDE 0.9% 1,000 ML IV SCH (05:29)
[2018-08-19] MEDS: PANTOPRAZOLE (EC) 40 MG TAB PO SCH (06:00)
[2018-08-19] MEDS: LEVOTHYROXINE 50 MCG TAB PO SCH (06:16)
[2018-08-19] MEDS: INSULIN ASPART [NOVOLOG] 3 ML PEN SC SCH ×7 (07:00→20:53)
[2018-08-19] MEDS ORDERED: FUROSEMIDE 20 MG INJ IV ONE ×3 (07:30→09:00)
--- NOTE | 2018-08-19 08:29 | PN ---
Date/Time of Note Date/Time of Note DATE: 08/19/18 TIME: 08:26 Assessment/Plan VTE Prophylaxis Risk score (from Ns)>0 risk: 3 SCD applied (from Ns): No SCD contraindicated: other Pharmacological prophylaxis: LMWH Lines/Catheters IV Catheter Type (from [facility]): Peripheral IV Urinary Cath still in place: No Assessment/Plan Hospital Course 1. 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 - May benefit from a debulking surgery because of the large pelvic mass - Plan for surgical intervention once more stable 2. Bilateral lower extremity edema. - suspect multifactorial including underlying diastolic heart failure, and venous insufficiency. - diuresis as renal function tolerates 3. Peripheral artery disease. - vascular surgeon following - Continue aspirin plus Plavix. - Continue statins. 4. Diabetes mellitus. - Hemoglobin A1c 6.3. - Continue sliding scale insulin along with pre-meal insulin and basal. 5. Elevated CA-19-9. - MRI of the abdomen showing multiple parenchymal and capsular liver lesions. - S/P percutaneous biopsy on 08/09/2018 with pathology: Mass, right lobe of liver, CT-guided core needle biopsies with touch imprints: -- Metastatic malignant mesodermal mixed tumor (carcinosarcoma). 6. Constipation. - Continue bowel regimen. - GI following 7. Hypothyroidism. - Continue Synthroid. 8. Acute kidney injury. - sas analyst following 9. Normocytic anemia. - Monitor H&H closely. - Continue iron supplements. 10. s/p Stress test 08.13.18 with small partially reversible perfusion defect in the distal anterior wall - plan for CTA 11. Dyspnea - noted with large right pleural effusion s/p thoracentesis with 750ml removed 08.15.18 - follow up pleural studies. - CXR s/p thoracentesis: Mild interval decrease in right pleural fluid with mildly improved aeration of the right lung. Moderate residual pleural effusion with associated atelectasis/consolidation of the right middle and lower lobes and perihilar right upper lobe infiltrates remains. - insurance plan specialist following - With worse breathing today. f/u CXR - Plan for intubation and transfer to ICU Disposition and plan: At present patient is not a candidate for chemotherapy. Tentative plan for pelvic surgery for removing uterine mass once more medically stable. Medical optimization in progress. Was reported patient's son Rk is seeking for aggressive therapy regarding uterine mass. Patient is status post Lexiscan stress test on August 13, 2018 showing skin to graphic abnormalities consistent with a small partially reversible perfusion defect in the distal anterior wall. plan for CTA. Patient heart rate reportedly still too fast to effectively have CTA done. Follow-up with headlight assembler recommendations. Continue medical optimization. anxiolytics prn With worse breathing 08.19.18. Plan for intubation and transfer to ICU. f/u chest imaging. f/u pulmonary recommendations Discussed POC with Dr. Allen Critical Care time: greater than 40 minutes Result Diagram: 08/19/18 0509 08/19/18 0509 Results 24hrs Laboratory Tests Test 08/18/18 08:38 08/18/18 11:51 08/18/18 17:16 08/18/18 20:24 Bedside Glucose 138 119 158 133 Test 08/19/18 05:09 08/19/18 07:29 08/19/18 07:30 White Blood Count 14.7 #H Red Blood Count 3.02 L Hemoglobin 8.6 L Hematocrit 28.5 L Mean Corpuscular 94.4 Volume Mean Corpuscular 28.5 L Hemoglobin Mean Corpuscular 30.2 L Hemoglobin Concen t Red Cell 17.2 H Distribution Width Platelet Count 832 H Mean Platelet 9.2 Volume Immature 1.000 H Granulocytes % Neutrophils % 80.2 H Lymphocytes % 9.6 L Monocytes % 8.8 Eosinophils % 0.1 Basophils % 0.3 Nucleated Red 0.0 Blood Cells % Immature 0.140 H Granulocytes # Neutrophils # 11.8 H Lymphocytes # 1.4 Monocytes # 1.3 H Eosinophils # 0.0 Basophils # 0.1 Nucleated Red 0.0 Blood Cells # Sodium Level 141 Potassium Level 5.2 H Chloride Level 110 Carbon Dioxide 18 L Level Anion Gap 13 Blood Urea 32 H Nitrogen Creatinine 1.10 H Est Glomerular 49 L Filtrat Rate mL/min Glucose Level 203 Calcium Level 9.0 Bedside Glucose 197 Blood Gas Blood arterial Specimen Source Arterial Blood 08/19/2018 7:40:2 Date Drawn 4 AM Arterial Blood pH 7.171 *L (Temp corrected) Arterial Blood 40.2 pCO2 (Temp correct) Arterial Blood 53.3 *L pO2 (Temp corrected) Arterial Blood 14.4 L HCO3 Arterial Blood -13.3 L Base Excess Arterial Blood 77.6 L Oxygen Saturation Quinten Test N/A Arterial Blood LB Gas Puncture Site Arterial 0.4 Blood Carboxyhemo globin Arterial Blood 0.4 Methemoglobin Blood Gas A-a O2 619.5 H Differential Oxyhemoglobin 77.0 L Percent Blood Gas 37.0 Temperature Blood Gas MASK - NRB Modality FiO2 100.0 Blood Gas ADEEL ALMANZA RN Critical Value Read Back Blood Gas T [facility] Notified Whom Blood Gas 08/19/2018 7:50:5 Notified Time 1 AM Subjective 24 Hr Interval Summary Free Text/Dictation patient seen on bipap with difficulty breathing Exam/Review of Systems Exam Vitals Vital Signs Date Temp Pulse Resp B/P (MAP) Pulse Ox O2 O2 Flow FiO2 Time Delivery Rate 08/19/18 105 94 100 08:19 08/19/18 98.0 22 110/55 Nasal 07:10 (73) Cannula 08/19/18 3.0 03:31 Intake and Output 08/18/18 08/18/18 08/19/18 1515:00 23:00 07:00 IntakeIntake Total 240 ml 240 ml 200 ml OutputOutput Total 400 ml 400 ml BalanceBalance 240 ml -160 ml -200 ml Exam Constitutional: alert Psych: anxiety Head: normocephalic Neck: supple, non-tender Respiratory: diminished breath sounds (right lung field ) Gastrointestinal: soft, non-tender Musculoskeletal: swelling (ble ) Neurological: nl mental status, nl speech Results Results 24hrs Laboratory Tests Test 08/18/18 08:38 08/18/18 11:51 08/18/18 17:16 08/18/18 20:24 Bedside Glucose 138 119 158 133 Test 08/19/18 05:09 08/19/18 07:29 08/19/18 07:30 White Blood Count 14.7 #H Red Blood Count 3.02 L Hemoglobin 8.6 L Hematocrit 28.5 L Mean Corpuscular 94.4 Volume Mean Corpuscular 28.5 L Hemoglobin Mean Corpuscular 30.2 L Hemoglobin Concen t Red Cell 17.2 H Distribution Width Platelet Count 832 H Mean Platelet 9.2 Volume Immature 1.000 H Granulocytes % Neutrophils % 80.2 H Lymphocytes % 9.6 L Monocytes % 8.8 Eosinophils % 0.1 Basophils % 0.3 Nucleated Red 0.0 Blood Cells % Immature 0.140 H Granulocytes # Neutrophils # 11.8 H Lymphocytes # 1.4 Monocytes # 1.3 H Eosinophils # 0.0 Basophils # 0.1 Nucleated Red 0.0 Blood Cells # Sodium Level 141 Potassium Level 5.2 H Chloride Level 110 Carbon Dioxide 18 L Level Anion Gap 13 Blood Urea 32 H Nitrogen Creatinine 1.10 H Est Glomerular 49 L Filtrat Rate mL/min Glucose Level 203 Calcium Level 9.0 Bedside Glucose 197 Blood Gas Blood arterial Specimen Source Arterial Blood 08/19/2018 7:40:2 Date Drawn 4 AM Arterial Blood pH 7.171 *L (Temp corrected) Arterial Blood 40.2 pCO2 (Temp correct) Arterial Blood 53.3 *L pO2 (Temp corrected) Arterial Blood 14.4 L HCO3 Arterial Blood -13.3 L Base Excess Arterial Blood 77.6 L Oxygen Saturation Quinten Test N/A Arterial Blood LB Gas Puncture Site Arterial 0.4 Blood Carboxyhemo globin Arterial Blood 0.4 Methemoglobin Blood Gas A-a O2 619.5 H Differential Oxyhemoglobin 77.0 L Percent Blood Gas 37.0 Temperature Blood Gas MASK - NRB Modality FiO2 100.0 Blood Gas ADEEL ALMANZA RN Critical Value Read Back Blood Gas [facility] Notified Whom Blood Gas 08/19/2018 7:50:5 Notified Time 1 AM Medications Medication Current Medications IV Flush (NS 3 ml) 3 ml PER PROTOCOL IV Last administered on 08/05/18 09:07; Admin Dose 3 ML; Start 07/29/18 at 06:30 Ondansetron HCl (Zofran Inj) 4 mg Q6H PRN IV NAUSEA/VOMITING Last administered on 08/18/18 18:34; Admin Dose 4 MG; Start 07/29/18 at 06:30 Acetaminophen/ Hydrocodone Bitart ([place] (5/325)) 1 tab Q6H PRN PO .MOD PAIN 4- 6 Last administered on 08/19/18 03:42; Admin Dose 1 TAB; Start 07/29/18 at 06:30 Pantoprazole (Protonix Tab) 40 mg DAILY@06 PO Last administered on 08/18/18 06:30; Admin Dose 40 MG; Start 07/29/18 at 06:30 Enoxaparin Sodium (Lovenox) 30 mg DAILY SC Last administered on 08/18/18 09:40; Admin Dose 30 MG; Start 07/29/18 at 09:00 Diagnostic Test (Pha) (Accu-Chek) 1 ea 02 XX Last administered on 08/18/18 02:00; Admin Dose 1 EA; Start 07/30/18 at 02:00 Acetaminophen (Tylenol Tab) 650 mg Q6H PRN PO .PAIN 1-3 OR TEMP Last administered on 08/17/18 05:46; Admin Dose 650 MG; Start 07/29/18 at 07:00 Eye Lubricant (Akwa Oint) 1 applic Q1H PRN BOTH EYES DRY EYES; Start 07/29/18 at 08:00 Aspirin (Halfprin) 81 mg DAILY PO Last administered on 08/18/18 08:41; Admin Dose 81 MG; Start 07/29/18 at 09:00 Atorvastatin Calcium (Lipitor) 20 mg QHS PO Last administered on 08/18/18 20:26; Admin Dose 20 MG; Start 07/29/18 at 21:00 Clopidogrel Bisulfate (plaVIX) 75 mg DAILY PO Last administered on 08/18/18 08:40; Admin Dose 75 MG; Start 07/29/18 at 09:00 Cyanocobalamin (Vitamin B12) 50 mcg DAILY PO Last administered on 08/18/18 08:40; Admin Dose 50 MCG; Start 07/29/18 at 09:00 Levothyroxine Sodium (Synthroid) 50 mcg BEFORE BREAKFAST PO Last administered on 08/18/18 06:30; Admin Dose 50 MCG; Start 07/29/18 at 07:00 Metoprolol Succinate (Toprol Xl) 25 mg BID PO Last administered on 08/18/18 20:26; Admin Dose 25 MG; Start 07/29/18 at 09:00 Polyethyl Glycol/ Propylene Glycol (Systane 0.3-0.4% Eye Drops) 1 drop Q4H PRN BOTH EYES DRY EYES; Start 07/29/18 at 08:00 Albuterol (Ventolin Hfa) 2 puff Q4H RESP THERAPY PRN INH WHEEZING; Start 07/29/18 at 09:00 Miscellaneous Information 1 ea NOTE XX ; Start 07/29/18 at 07:00 Glucose (Glutose) 15 gm Q15M PRN PO DECREASED GLUCOSE; Start 07/29/18 at 07:00 Glucose (Glutose) 22.5 gm Q15M PRN PO DECREASED GLUCOSE; Start 07/29/18 at 07:00 Dextrose (D50w Syringe) 25 ml Q15M PRN IV DECREASED GLUCOSE; Start 07/29/18 at 07:00 Dextrose (D50w Syringe) 50 ml Q15M PRN IV DECREASED GLUCOSE; Start 07/29/18 at 07:00 Glucagon (Glucagen) 1 mg Q15M PRN IM DECREASED GLUCOSE; Start 07/29/18 at 07:00 Glucose (Glutose) 15 gm Q15M PRN BUCCAL DECREASED GLUCOSE; Start 07/29/18 at 07:00 Alprazolam (Xanax) 0.25 mg Q8H PRN PO ANXIETY Last administered on 08/19/18at 00:10; Admin Dose 0.25 MG; Start 07/29/18 at 12:30 Polyethylene Glycol (Miralax) 17 gm DAILY PO Last administered on 08/17/18at 08:44; Admin Dose 17 GM; Start 07/29/18 at 12:30 Docusate Sodium (Colace) 100 mg BID PO Last administered on 08/18/18 20:26; Admin Dose 100 MG; Start 07/31/18 at 21:00 Magnesium Hydroxide (Milk Of Mag) 30 ml Q12H PRN PO STOMACH UPSET/CRAMPING Last administered on 07/31/18at 21:28; Admin Dose 30 ML; Start 07/31/18 at 20:00 Al Hydrox/Mg Hydrox/Simethicone (Mag-Al Plus) 30 ml Q6H PRN PO GASTROINTESTINAL UPSET Last administered on 08/16/18at 23:45; Admin Dose 30 ML; Start 08/03/18 at 17:30 Insulin Aspart (Novolog Insulin Pen) (Adult SC Insulin - Moder... AC MEALS AND BEDTIME SC Last administered on 08/18/18 17:18; Admin Dose 2 UNIT; Start 08/08/18 at 17:30 Insulin Glargine (Lantus) 8 units DAILY@2000 SC Last administered on 08/18/18 20:59; Admin Dose 8 UNITS; Start 08/09/18 at 20:00 Insulin Aspart (Novolog Insulin Pen) 3 unit WITH MEALS SC Last administered on 08/18/18 17:18; Admin Dose 3 UNIT; Start 08/09/18 at 18:00 Zolpidem Tartrate (Ambien) 5 mg HS PRN PO INSOMNIA Last administered on 08/18/18 20:35; Admin Dose 5 MG; Start 08/12/18 at 21:30 Albuterol/ Ipratropium (Duoneb) 3 ml Q2H RESP THERAPY PRN HHN sob Last administered on 08/19/18 03:28; Admin Dose 3 ML; Start 08/14/18 at 12:00 Diltiazem HCl (Cardizem Iv) 5 mg Q4 PRN IV HR>70 for Cardiac CTA Last administered on 08/19/18 03:50; Admin Dose 5 MG; Start 08/17/18 at 11:30 Lorazepam (Ativan) 1 mg Q8H PRN IV ANXIETY Last administered on 08/18/18 09:59; Admin Dose 1 MG; Start 08/17/18 at 15:30 Epoetin Glenn-epbx (Retacrit (Non-Esrd)) 20,000 unit TuThSa@1700 SC Last administered on 08/18/18 17:14; Admin Dose 20,000 UNIT; Start 08/18/18 at 17:00 Simethicone (Mylicon) 160 mg Q6H PRN PO DISTENSION/GAS/BLOATING Last administered on 08/18/18 08:49; Admin Dose 160 MG; Start 08/17/18 at 20:00 Sodium Chloride 1,000 ml @ 50 mls/hr Q20H IV Last administered on 08/19/18 05:29; Admin Dose 50 MLS/HR; Start 08/18/18 at 09:54 FIDE MAGUIRE NP Aug 19, 2018 08:29
[2018-08-19] MEDS: CYANOCOBALAMIN 100 MCG TAB PO SCH (09:00)
[2018-08-19] MEDS: ENOXAPARIN 30 MG/0.3 ML SYG SC SCH (09:00)
[2018-08-19] MEDS: METOPROLOL (XL) 25 MG TAB PO SCH ×2 (09:00→21:00)
[2018-08-19] MEDS: CLOPIDOGREL 75 MG TAB PO SCH (09:00)
[2018-08-19] MEDS: DOCUSATE SODIUM 100 MG CAP PO SCH ×2 (09:00→20:54)
[2018-08-19] MEDS: POLYETHYLENE GLYCOL 17 GM PACKET PO SCH (09:00)
[2018-08-19] MEDS: ASPIRIN (EC) 81 MG TAB PO SCH (09:00)
[2018-08-19] MEDS ORDERED: PROPOFOL 100 ML ONE (09:05)
[2018-08-19] MEDS ORDERED: ALBUMIN HUMAN 25% 100 ML ONE (09:30)
[2018-08-19] MEDS ORDERED: NORepinephrine 8MG/250 ML (PMX 250 ML ONE (09:40)
--- NOTE | 2018-08-19 09:42 | CONS ---
Assessment/Plan Assessment/Plan Assessment/Plan (Daily) Ventilator setting; AC of 18, tidal volume 450, PEEP of 5, 100% FiO2. Assessment and recommendations; 1. Patient recently diagnosed with metastatic uterine cancer to liver. 2. Status post right thoracentesis. 3. Cardiac arrest event short while ago with asystole. 4. Severe hypotension. 5. Severe protein calorie malnutrition. Continue current supportive care. Patient will need to have a central line placed for administration of Levophed as well as intravenous fluids. Continue other supportive measures. Prognosis appears very poor. Further recommendations once post intubation ABG is performed. CODE STATUS needs to be addressed with the family. 35 minutes of critical care time was spent evaluating the patient. Consultation Date/Type/Reason Admit Date/Time Jul 29, 2018 at 06:16 Initial Consult Date 08/15/18 Type of Consult Pulmonary Patient is a 68-year-old lady who came into the hospital on the second of this month with complaints of shortness of breath. Upon evaluation a chest x-ray was done which is showing a right pleural effusion. Further work-up revealed a liver mass which is showing metastatic carcinoma. Patient denies any shortness of breath, chest pain, wheezing, sputum production hemoptysis. Has complained of weight loss. By the time I saw her, patient was completely awake and alert. And did not appear to be in any distress whatsoever. Past medical history; 1. Recently diagnosed metastatic hepatic carcinoma. 2. Chronic renal insufficiency. 3. History of diabetes and hypothyroidism. 4. History of left corneal opacity. Medications; reviewed. Allergies; Levaquin. Family history; she lives with HER-2 sons. No history of any malignancy. 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 Review of systems; denies any headache, seizures, visual changes. Any dysphagia. Denies any chest pain, complains of very mild shortness of breath. Denies any coughing, sputum production or hemoptysis. Denies any abdominal pain, any melena hematochezia complains of weight loss. Denies any edema. Complains of very mild orthopnea. Denies any joint symptoms. General exam; elderly female, awake alert. Currently no distress. Requesting Provider: SANDI MURDOCK NP Date/Time of Note DATE: 08/19/18 TIME: 09:39 24 HR Interval Summary Free Text/Dictation Patient's condition is critical. Patient had a sudden cardiac arrest event this morning with asystole requiring CPR with revival of vital signs. Patient is now intubated and transferred to ICU. Remains extremely hypotensive. Patient currently getting a fluid bolus and is been started on Levophed drip. General exam; elderly woman, emaciated, orally intubated, unresponsive. Currently in no distress. Exam/Review of Systems Exam Vitals Vital Signs Date Temp Pulse Resp B/P (MAP) Pulse Ox O2 O2 Flow FiO2 Time Delivery Rate 08/19/18 105 94 100 08:19 08/19/18 98.0 22 110/55 Nasal 07:10 (73) Cannula 08/19/18 3.0 03:31 Intake and Output 08/18/18 08/18/18 08/19/18 1515:00 23:00 07:00 IntakeIntake Total 240 ml 240 ml 200 ml OutputOutput Total 400 ml 400 ml BalanceBalance 240 ml -160 ml -200 ml Exam H EENT exam; supple neck, no JVD. No lymphadenopathy. Midline trachea. No thyromegaly. Orally intubated. Patient is edentulous. No neck masses. Chest exam; diminished breath sounds bilaterally. S1-S2 audible, no murmurs. Regular rhythm. Abdomen exam; scaphoid. No organomegaly. Bowel sounds are absent. Extremity exam; no peripheral edema clubbing. BUNDLE PACKER exam; patient is currently unresponsive. Results Result Diagram: 08/19/18 0509 08/19/18 0509 Results 24hrs Laboratory Tests Test 08/18/18 11:51 08/18/18 17:16 08/18/18 20:24 08/19/18 05:09 Bedside Glucose 119 158 133 White Blood Count 14.7 #H Red Blood Count 3.02 L Hemoglobin 8.6 L Hematocrit 28.5 L Mean Corpuscular 94.4 Volume Mean Corpuscular 28.5 L Hemoglobin Mean Corpuscular 30.2 L Hemoglobin Concen t Red Cell 17.2 H Distribution Width Platelet Count 832 H Mean Platelet 9.2 Volume Immature 1.000 H Granulocytes % Neutrophils % 80.2 H Lymphocytes % 9.6 L Monocytes % 8.8 Eosinophils % 0.1 Basophils % 0.3 Nucleated Red 0.0 Blood Cells % Immature 0.140 H Granulocytes # Neutrophils # 11.8 H Lymphocytes # 1.4 Monocytes # 1.3 H Eosinophils # 0.0 Basophils # 0.1 Nucleated Red 0.0 Blood Cells # Sodium Level 141 Potassium Level 5.2 H Chloride Level 110 Carbon Dioxide 18 L Level Anion Gap 13 Blood Urea 32 H Nitrogen Creatinine 1.10 H Est Glomerular 49 L Filtrat Rate mL/min Glucose Level 203 Calcium Level 9.0 Test 08/19/18 07:29 08/19/18 07:30 08/19/18 08:40 Bedside Glucose 197 154 Blood Gas Blood arterial Specimen Source Arterial Blood 08/19/2018 7:40:2 Date Drawn 4 AM Arterial Blood pH 7.171 *L (Temp corrected) Arterial Blood 40.2 pCO2 (Temp correct) Arterial Blood 53.3 *L pO2 (Temp corrected) Arterial Blood 14.4 L HCO3 Arterial Blood -13.3 L Base Excess Arterial Blood 77.6 L Oxygen Saturation Quinten Test N/A Arterial Blood LB Gas Puncture Site Arterial 0.4 Blood Carboxyhemo globin Arterial Blood 0.4 Methemoglobin Blood Gas A-a O2 619.5 H Differential Oxyhemoglobin 77.0 L Percent Blood Gas 37.0 Temperature Blood Gas MASK - NRB Modality FiO2 100.0 Blood Gas ADEEL ALMANZA RN Critical Value Read Back Blood Gas T [facility] Notified Whom Blood Gas 08/19/2018 7:50:5 Notified Time 1 AM Medications Medication Current Medications IV Flush (NS 3 ml) 3 ml PER PROTOCOL IV Last administered on 08/05/18 09:07; A dmin Dose 3 ML; Start 07/29/18 at 06:30 Ondansetron HCl (Zofran Inj) 4 mg Q6H PRN IV NAUSEA/VOMITING Last administered on 08/18/18 18:34; Admin Dose 4 MG; Start 07/29/18 at 06:30 Acetaminophen/ Hydrocodone Bitart ([place] (5/325)) 1 tab Q6H PRN PO .MOD PAIN 4- 6 Last administered on 08/19/18 03:42; Admin Dose 1 TAB; Start 07/29/18 at 06:30 Pantoprazole (Protonix Tab) 40 mg DAILY@06 PO Last administered on 08/18/18 06:30; Admin Dose 40 MG; Start 07/29/18 at 06:30 Enoxaparin Sodium (Lovenox) 30 mg DAILY SC Last administered on 08/18/18 09:40; Admin Dose 30 MG; Start 07/29/18 at 09:00 Diagnostic Test (Pha) (Accu-Chek) 1 ea 02 XX Last administered on 08/18/18 02:00; Admin Dose 1 EA; Start 07/30/18 at 02:00 Acetaminophen (Tylenol Tab) 650 mg Q6H PRN PO .PAIN 1-3 OR TEMP Last administered on 08/17/18 05:46; Admin Dose 650 MG; Start 07/29/18 at 07:00 Eye Lubricant (Akwa Oint) 1 applic Q1H PRN BOTH EYES DRY EYES; Start 07/29/18 at 08:00 Aspirin (Halfprin) 81 mg DAILY PO Last administered on 08/18/18 08:41; Admin Dose 81 MG; Start 07/29/18 at 09:00 Atorvastatin Calcium (Lipitor) 20 mg QHS PO Last administered on 08/18/18 20:26; Admin Dose 20 MG; Start 07/29/18 at 21:00 Clopidogrel Bisulfate (plaVIX) 75 mg DAILY PO Last administered on 08/18/18 08:40; Admin Dose 75 MG; Start 07/29/18 at 09:00 Cyanocobalamin (Vitamin B12) 50 mcg DAILY PO Last administered on 08/18/18 08:40; Admin Dose 50 MCG; Start 07/29/18 at 09:00 Levothyroxine Sodium (Synthroid) 50 mcg BEFORE BREAKFAST PO Last administered on 08/18/18 06:30; Admin Dose 50 MCG; Start 07/29/18 at 07:00 Metoprolol Succinate (Toprol Xl) 25 mg BID PO Last administered on 08/18/18 20:26; Admin Dose 25 MG; Start 07/29/18 at 09:00 Polyethyl Glycol/ Propylene Glycol (Systane 0.3-0.4% Eye Drops) 1 drop Q4H PRN BOTH EYES DRY EYES; Start 07/29/18 at 08:00 Albuterol (Ventolin Hfa) 2 puff Q4H RESP THERAPY PRN INH WHEEZING; Start 07/29/18 at 09:00 Miscellaneous Information 1 ea NOTE XX ; Start 07/29/18 at 07:00 Glucose (Glutose) 15 gm Q15M PRN PO DECREASED GLUCOSE; Start 07/29/18 at 07:00 Glucose (Glutose) 22.5 gm Q15M PRN PO DECREASED GLUCOSE; Start 07/29/18 at 07:00 Dextrose (D50w Syringe) 25 ml Q15M PRN IV DECREASED GLUCOSE; Start 07/29/18 at 07:00 Dextrose (D50w Syringe) 50 ml Q15M PRN IV DECREASED GLUCOSE; Start 07/29/18 at 07:00 Glucagon (Glucagen) 1 mg Q15M PRN IM DECREASED GLUCOSE; Start 07/29/18 at 07:00 Glucose (Glutose) 15 gm Q15M PRN BUCCAL DECREASED GLUCOSE; Start 07/29/18 at 07:00 Alprazolam (Xanax) 0.25 mg Q8H PRN PO ANXIETY Last administered on 08/19/18at 00:10; Admin Dose 0.25 MG; Start 07/29/18 at 12:30 Polyethylene Glycol (Miralax) 17 gm DAILY PO Last administered on 08/17/18 08:44; Admin Dose 17 GM; Start 07/29/18 at 12:30 Docusate Sodium (Colace) 100 mg BID PO Last administered on 08/18/18 20:26; Admin Dose 100 MG; Start 07/31/18 at 21:00 Magnesium Hydroxide (Milk Of Mag) 30 ml Q12H PRN PO STOMACH UPSET/CRAMPING Last administered on 07/31/18 21:28; Admin Dose 30 ML; Start 07/31/18 at 20:00 Al Hydrox/Mg Hydrox/Simethicone (Mag-Al Plus) 30 ml Q6H PRN PO GASTROINTESTINAL UPSET Last administered on 08/16/18 23:45; Admin Dose 30 ML; Start 08/03/18 at 17:30 Insulin Aspart (Novolog Insulin Pen) (Adult SC Insulin - Moder... AC MEALS AND BEDTIME SC Last administered on 08/19/18 07:00; Admin Dose 4 UNIT; Start 08/08/18 at 17:30 Insulin Glargine (Lantus) 8 units DAILY@2000 SC Last administered on 08/18/18 20:59; Admin Dose 8 UNITS; Start 08/09/18 at 20:00 Insulin Aspart (Novolog Insulin Pen) 3 unit WITH MEALS SC Last administered on 08/19/18 08:27; Admin Dose 3 UNIT; Start 08/09/18 at 18:00 Zolpidem Tartrate (Ambien) 5 mg HS PRN PO INSOMNIA Last administered on 08/18/18 20:35; Admin Dose 5 MG; Start 08/12/18 at 21:30 Albuterol/ Ipratropium (Duoneb) 3 ml Q2H RESP THERAPY PRN HHN sob Last administered on 08/19/18 03:28; Admin Dose 3 ML; Start 08/14/18 at 12:00 Diltiazem HCl (Cardizem Iv) 5 mg Q4 PRN IV HR>70 for Cardiac CTA Last administered on 08/19/18 03:50; Admin Dose 5 MG; Start 08/17/18 at 11:30 Lorazepam (Ativan) 1 mg Q8H PRN IV ANXIETY Last administered on 08/18/18 09:59; Admin Dose 1 MG; Start 08/17/18 at 15:30 Epoetin Glenn-epbx (Retacrit (Non-Esrd)) 20,000 unit TuThSa@1700 SC Last administered on 08/18/18 17:14; Admin Dose 20,000 UNIT; Start 08/18/18 at 17:00 Simethicone (Mylicon) 160 mg Q6H PRN PO DISTENSION/GAS/BLOATING Last administered on 08/18/18 08:49; Admin Dose 160 MG; Start 08/17/18 at 20:00 Sodium Chloride 1,000 ml @ 50 mls/hr Q20H IV Last administered on 08/19/18 05:29; Admin Dose 50 MLS/HR; Start 08/18/18 at 09:54 Propofol 100 ml @ 1.568 mls/ hr Q12H IV ; Start 08/19/18 at 09:30 MIKEY FAGAN Aug 19, 2018 09:42
[2018-08-19] MEDS: PROPOFOL 100 ML IV SCH ×3 (10:24→19:36)
[2018-08-19] MEDS ORDERED: ALBUMIN HUMAN 25% 100 ML IV ONE (10:30)
[2018-08-19] MEDS ORDERED: SOD CHLORIDE 0.9% 1,000 ML IV ONE (10:30)
[2018-08-19] MEDS ORDERED: SOD CHLORIDE 0.9% 1,000 ML IV SCH (10:30)
--- NOTE | 2018-08-19 10:48 | CONS ---
Consult Date/Type/Reason Admit Date/Time Jul 29, 2018 at 06:16 Initial Consult Date 08/15/18 Requesting Provider: SANDI MURDOCK NP Date/Time of Note DATE: 08/19/18 TIME: 10:42 Subjective Patient's condition is critical. Patient had a sudden cardiac arrest event this morning with asystole requiring CPR with revival of vital signs. Patient is now intubated and transferred to ICU. Remains extremely hypotensive. Patient currently getting a fluid bolus and is been started on Levophed drip. UO overnight had been ok. poc reviewed with hospitalist GEN: intubated and sedated HEENT exam; supple neck, no JVD. No lymphadenopathy. Midline trachea. No thyromegaly. Orally intubated. Patient is edentulous. No neck masses. Chest exam; diminished breath sounds bilaterally. S1-S2 audible, no murmurs. Regular rhythm. Abdomen exam; scaphoid. No organomegaly. Bowel sounds are absent. Extremity exam; no peripheral edema clubbing. BODY MAKE UP ARTIST exam; patient is currently unresponsive. Objective Vitals Vital Signs Date Temp Pulse Resp B/P (MAP) Pulse Ox O2 O2 Flow FiO2 Time Delivery Rate 08/19/18 65 09:22 08/19/18 94 100 08:19 08/19/18 Simple 6.0 07:26 Mask 08/19/18 98.0 22 110/55 07:10 (73) Intake and Output 08/18/18 08/18/18 08/19/18 1515:00 23:00 07:00 IntakeIntake Total 240 ml 240 ml 200 ml OutputOutput Total 400 ml 400 ml BalanceBalance 240 ml -160 ml -200 ml Results/Medications Result Diagram: 08/19/18 0509 08/19/18 0509 Results 24 hrs Laboratory Tests Test 08/18/18 11:51 08/18/18 17:16 08/18/18 20:24 08/19/18 05:09 Bedside Glucose 119 158 133 White Blood Count 14.7 #H Red Blood Count 3.02 L Hemoglobin 8.6 L Hematocrit 28.5 L Mean Corpuscular 94.4 Volume Mean Corpuscular 28.5 L Hemoglobin Mean Corpuscular 30.2 L Hemoglobin Concen t Red Cell 17.2 H Distribution Width Platelet Count 832 H Mean Platelet 9.2 Volume Immature 1.000 H Granulocytes % Neutrophils % 80.2 H Lymphocytes % 9.6 L Monocytes % 8.8 Eosinophils % 0.1 Basophils % 0.3 Nucleated Red 0.0 Blood Cells % Immature 0.140 H Granulocytes # Neutrophils # 11.8 H Lymphocytes # 1.4 Monocytes # 1.3 H Eosinophils # 0.0 Basophils # 0.1 Nucleated Red 0.0 Blood Cells # Sodium Level 141 Potassium Level 5.2 H Chloride Level 110 Carbon Dioxide 18 L Level Anion Gap 13 Blood Urea 32 H Nitrogen Creatinine 1.10 H Est Glomerular 49 L Filtrat Rate mL/min Glucose Level 203 Calcium Level 9.0 Test 08/19/18 07:29 08/19/18 07:30 08/19/18 08:40 Bedside Glucose 197 154 Blood Gas Blood arterial Specimen Source Arterial Blood 08/19/2018 7:40:2 Date Drawn 4 AM Arterial Blood pH 7.171 *L (Temp corrected) Arterial Blood 40.2 pCO2 (Temp correct) Arterial Blood 53.3 *L pO2 (Temp corrected) Arterial Blood 14.4 L HCO3 Arterial Blood -13.3 L Base Excess Arterial Blood 77.6 L Oxygen Saturation Quinten Test N/A Arterial Blood LB Gas Puncture Site Arterial 0.4 Blood Carboxyhemo globin Arterial Blood 0.4 Methemoglobin Blood Gas A-a O2 619.5 H Differential Oxyhemoglobin 77.0 L Percent Blood Gas 37.0 Temperature Blood Gas MASK - NRB Modality FiO2 100.0 Blood Gas ADEEL ALMANZA RN Critical Value Read Back Blood Gas [facility] Notified Whom Blood Gas 08/19/2018 7:50:5 Notified Time 1 AM Home Meds Active Scripts Magnesium Oxide* (Mag-Oxide*) 400 Mg Tablet, 400 MG PO BID for 3 Days, #10 TAB Prov:FERNANDO YANCEY MD 07/08/18 Lactobacillus Rhamnosus GG (Culturelle) 1 Each Capsule, 1 CAP PO BID for 14 Da ys, #30 CAP Prov:FERNANDO YANCEY MD 07/08/18 Acetaminophen* (Tylenol*) 325 Mg Tablet, 650 MG PO Q6H PRN for .PAIN 1-3 OR TEMP for 10 Days, #10 TAB Prov:FERNANDO YANCEY MD 07/08/18 Lisinopril* (Lisinopril*) 5 Mg Tablet, 2.5 MG PO DAILY for 15 Days, #15 TAB Prov:FERNANDO YANCEY MD 07/08/18 Sulfamethoxazole/Trimethoprim (Sulfamethoxazole-Tmp Ds Tablet) 1 Each Tablet, 1 TAB PO BID for 5 Days, #10 TAB Prov:FERNANDO YANCEY MD 07/08/18 Reported Medications Sodium Bicarbonate* (Sodium Bicarbonate*) 650 Mg Tablet, 650 MG PO TID, TAB 07/05/18 Propylene Glycol-Peg 400 (Systane 0.3-0.4% Eye Drops) 0.3-0.4 % - 30 Ml Drops, 1 DROP BOTH EYES Q4H PRN for DRY EYES, #1 BOTTLE 07/05/18 Pantoprazole* (Protonix*) 40 Mg Tablet.dr, 40 MG PO QAM, TAB 07/05/18 Ondansetron Hcl* (Zofran*) 8 Mg Tablet, 8 MG PO Q6H PRN for NAUSEA AND OR VOMITING, TAB 07/05/18 Metoprolol Succinate* (Toprol XL*) 25 Mg Tab.sr.24h, 25 MG PO BID, #30 TAB 07/05/18 Metformin* (Glucophage*) 500 Mg Tab, 500 MG PO WITH BREAKFAST, #30 TAB 07/05/18 Levothyroxine Sodium* (Synthroid*) 50 Mcg Tablet, 50 MCG PO BEFORE BREAKFAST, #30 TAB 07/05/18 Hydrocodone/Acetaminophen ([place] 5-325 Tablet) 1 Each Tablet, 1 EACH PO Q6 PRN for PAIN, TAB 07/05/18 [place]-3 Fatty Acids/Fish Oil (Fish Oil 1,000 mg Capsule) 1 Each Capsule, 1 EACH PO DAILY, CAP 07/05/18 Cyanocobalamin* (Vitamin B-12*) 50 Mcg Tablet, 50 MCG PO DAILY, TAB 07/05/18 Clopidogrel Bisulfate (Clopidogrel) 75 Mg Tablet, 75 MG PO DAILY, #30 TAB 07/05/18 Atorvastatin Calcium* (Atorvastatin Calcium*) 20 Mg Tablet, 20 MG PO QHS, #30 TAB 07/05/18 Aspirin* (Aspirin* EC) 81 Mg Tablet.dr, 81 MG PO DAILY, TAB 07/05/18 Artificial Tears* (Akwa Oint*) 3.5 Gm Oint, 1 APPLIC BOTH EYES Q1H PRN for DRY EYES, #1 TUB 07/05/18 Albuterol Sulfate (Proair Respiclick) 90 Mcg Aer.pow.ba, 2 PUFFS INHALATION Q4 PRN for WHEEZING, BOTTLE 07/05/18 Medications Current Medications IV Flush (NS 3 ml) 3 ml PER PROTOCOL IV Last administered on 08/05/18 09:07; Admin Dose 3 ML; Start 07/29/18 at 06:30 Ondansetron HCl (Zofran Inj) 4 mg Q6H PRN IV NAUSEA/VOMITING Last administered on 08/18/18 18:34; Admin Dose 4 MG; Start 07/29/18 at 06:30 Acetaminophen/ Hydrocodone Bitart ([place] (5/325)) 1 tab Q6H PRN PO .MOD PAIN 4- 6 Last administered on 08/19/18 03:42; Admin Dose 1 TAB; Start 07/29/18 at 06:30 Pantoprazole (Protonix Tab) 40 mg DAILY@06 PO Last administered on 08/18/18 06:30; Admin Dose 40 MG; Start 07/29/18 at 06:30 Enoxaparin Sodium (Lovenox) 30 mg DAILY SC Last administered on 08/18/18 09:40; Admin Dose 30 MG; Start 07/29/18 at 09:00 Diagnostic Test (Pha) (Accu-Chek) 1 ea 02 XX Last administered on 08/18/18 02:00; Admin Dose 1 EA; Start 07/30/18 at 02:00 Acetaminophen (Tylenol Tab) 650 mg Q6H PRN PO .PAIN 1-3 OR TEMP Last administered on 08/17/18 05:46; Admin Dose 650 MG; Start 07/29/18 at 07:00 Eye Lubricant (Akwa Oint) 1 applic Q1H PRN BOTH EYES DRY EYES; Start 07/29/18 at 08:00 Aspirin (Halfprin) 81 mg DAILY PO Last administered on 08/18/18 08:41; Admin Dose 81 MG; Start 07/29/18 at 09:00 Atorvastatin Calcium (Lipitor) 20 mg QHS PO Last administered on 08/18/18 20:26; Admin Dose 20 MG; Start 07/29/18 at 21:00 Clopidogrel Bisulfate (plaVIX) 75 mg DAILY PO Last administered on 6/22/19at 08:40; Admin Dose 75 MG; Start 07/29/18 at 09:00 Cyanocobalamin (Vitamin B12) 50 mcg DAILY PO Last administered on 08/18/18at 08:40; Admin Dose 50 MCG; Start 07/29/18 at 09:00 Levothyroxine Sodium (Synthroid) 50 mcg BEFORE BREAKFAST PO Last administered on 08/18/18at 06:30; Admin Dose 50 MCG; Start 07/29/18 at 07:00 Metoprolol Succinate (Toprol Xl) 25 mg BID PO Last administered on 08/18/18at 20:26; Admin Dose 25 MG; Start 07/29/18 at 09:00 Polyethyl Glycol/ Propylene Glycol (Systane 0.3-0.4% Eye Drops) 1 drop Q4H PRN BOTH EYES DRY EYES; Start 07/29/18 at 08:00 Albuterol (Ventolin Hfa) 2 puff Q4H RESP THERAPY PRN INH WHEEZING; Start 07/29/18 at 09:00 Miscellaneous Information 1 ea NOTE XX ; Start 07/29/18 at 07:00 Glucose (Glutose) 15 gm Q15M PRN PO DECREASED GLUCOSE; Start 07/29/18 at 07:00 Glucose (Glutose) 22.5 gm Q15M PRN PO DECREASED GLUCOSE; Start 07/29/18 at 07:00 Dextrose (D50w Syringe) 25 ml Q15M PRN IV DECREASED GLUCOSE; Start 07/29/18 at 07:00 Dextrose (D50w Syringe) 50 ml Q15M PRN IV DECREASED GLUCOSE; Start 07/29/18 at 07:00 Glucagon (Glucagen) 1 mg Q15M PRN IM DECREASED GLUCOSE; Start 07/29/18 at 07:00 Glucose (Glutose) 15 gm Q15M PRN BUCCAL DECREASED GLUCOSE; Start 07/29/18 at 07:00 Alprazolam (Xanax) 0.25 mg Q8H PRN PO ANXIETY Last administered on 08/19/18at 00:10; Admin Dose 0.25 MG; Start 07/29/18 at 12:30 Polyethylene Glycol (Miralax) 17 gm DAILY PO Last administered on 08/17/18at 08:44; Admin Dose 17 GM; Start 07/29/18 at 12:30 Docusate Sodium (Colace) 100 mg BID PO Last administered on 08/18/18 20:26; Admin Dose 100 MG; Start 07/31/18 at 21:00 Magnesium Hydroxide (Milk Of Mag) 30 ml Q12H PRN PO STOMACH UPSET/CRAMPING Last administered on 07/31/18 21:28; Admin Dose 30 ML; Start 07/31/18 at 20:00 Al Hydrox/Mg Hydrox/Simethicone (Mag-Al Plus) 30 ml Q6H PRN PO GASTROINTESTINAL UPSET Last administered on 08/16/18 23:45; Admin Dose 30 ML; Start 08/03/18 at 17:30 Insulin Aspart (Novolog Insulin Pen) (Adult SC Insulin - Moder... AC MEALS AND BEDTIME SC Last administered on 08/19/18 07:00; Admin Dose 4 UNIT; Start 08/08/18 at 17:30 Insulin Glargine (Lantus) 8 units DAILY@2000 SC Last administered on 08/18/18 20:59; Admin Dose 8 UNITS; Start 08/09/18 at 20:00 Insulin Aspart (Novolog Insulin Pen) 3 unit WITH MEALS SC Last administered on 08/19/18 08:27; Admin Dose 3 UNIT; Start 08/09/18 at 18:00 Zolpidem Tartrate (Ambien) 5 mg HS PRN PO INSOMNIA Last administered on 08/18/18 20:35; Admin Dose 5 MG; Start 08/12/18 at 21:30 Albuterol/ Ipratropium (Duoneb) 3 ml Q2H RESP THERAPY PRN HHN sob Last adm inistered on 08/19/18 03:28; Admin Dose 3 ML; Start 08/14/18 at 12:00 Diltiazem HCl (Cardizem Iv) 5 mg Q4 PRN IV HR>70 for Cardiac CTA Last administered on 08/19/18 03:50; Admin Dose 5 MG; Start 08/17/18 at 11:30 Lorazepam (Ativan) 1 mg Q8H PRN IV ANXIETY Last administered on 08/18/18 09:59; Admin Dose 1 MG; Start 08/17/18 at 15:30 Epoetin Glenn-epbx (Retacrit (Non-Esrd)) 20,000 unit TuThSa@1700 SC Last administered on 6/22/19at 17:14; Admin Dose 20,000 UNIT; Start 08/18/18 at 17:00 Simethicone (Mylicon) 160 mg Q6H PRN PO DISTENSION/GAS/BLOATING Last administered on 08/18/18 08:49; Admin Dose 160 MG; Start 08/17/18 at 20:00 Sodium Chloride 1,000 ml @ 50 mls/hr Q20H IV Last administered on 08/19/18 05:29; Admin Dose 50 MLS/HR; Start 08/18/18 at 09:54 Propofol 100 ml @ 1.568 mls/ hr Q12H IV Last administered on 08/19/18 10:24; Admin Dose 3.136 MLS/HR; Start 08/19/18 at 09:30 Albumin Human 100 ml @ 100 mls/hr ONCE ONCE IV Last administered on 08/19/18 10:32; Admin Dose 100 MLS/HR; Start 08/19/18 at 10:30; Stop 08/19/18 at 11:29 Sodium Chloride 1,000 ml @ 1,000 mls/hr Q1H ONCE IV Last administered on 08/19/18 10:33; Admin Dose 1,000 MLS/HR; Start 08/19/18 at 10:30; Stop 08/19/18 at 11:29 Sodium Chloride 1,000 ml @ 100 mls/hr Q10H IV Last administered on 08/19/18 10:34; Admin Dose 100 MLS/HR; Start 08/19/18 at 10:30 Norepinephrine 250 ml @ 1.875 mls/ hr TITRATE IV ; Start 08/19/18 at 10:30 Assessment/Plan Hospital Course (Demo Recall) 1. Nonoliguric acute kidney injury on top of chronic kidney disease with previous baseline creatinine around 1.2 to 1.4 mg/dL. The etiology of current acute kidney injury is secondary to hemodynamics. Renal function is stable. - continue supportive care, renally dose all meds, avoid nephrotoxins. - may need to tolerate some azotemia to achieve euvolemia. 2. Anemia. Monitor hemoglobin and hematocrit levels. 3. acute respiratory failure - now intubated. - noted with large right pleural effusion s/p thoracentesis with 750ml removed 08.15.18 - CXR s/p thoracentesis: Mild interval decrease in right pleural fluid with mildly improved aeration of the right lung. Moderate residual pleural effusion with associated atelectasis/consolidation of the right middle and lower lobes and perihilar right upper lobe infiltrates remains. - repeat cxr today: Improved aeration in the right lung with large pleural effusion. 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 Hypokalemia improved. borderline high 5. Coronary artery disease. The patient has a positive stress test, Continue to monitor. Follow up with cardiology. plan on coronary cta today. 6. Hypothyroidism. Continue Synthroid. 7. Diabetes. Continue insulin regimen. 8. Pleural effusion, status post thoracentesis. may need repeat. 9. Liver mass. Findings consistent with metastatic carcinosarcoma. Continue to monitor. Follow up with oncology. 10. 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 - May benefit from a debulking surgery because of the large pelvic mass - Plan for surgical intervention once more stable 11. Bilateral lower extremity edema. - suspect multifactorial including underlying diastolic heart failure, and venous insufficiency. - diuresis as renal function tolerates. hold off now as patient having iv contrast. 12. Elevated CA-19-9. - MRI of the abdomen showing multiple parenchymal and capsular liver lesions. - S/P percutaneous biopsy on 08/09/2018 with pathology: Mass, right lobe of live r, CT-guided core needle biopsies with touch imprints: -- Metastatic malignant mesodermal mixed tumor (carcinosarcoma). JOHNNY ANGELES MD Aug 19, 2018 10:48
--- NOTE | 2018-08-19 11:06 | RADRPT ---
Vent Rate: 104 bpm RR Interval: 576 msec WA Interval: 141 msec QRS Duration: 73 msec QT Interval: 342 msec QTC Interval: 451 msec P-R-T [place]: 71 - 33 - 69 degrees Sinus tachycardia...rate> 99 Low voltage, extremity leads...all extremity leads <0.5mV Electronically Signed By: Ru Harman
[2018-08-19] MEDS ORDERED: NA BICARBONATE 8.4% 50 ML SYG IV STA (11:35)
[2018-08-19] MEDS ORDERED: NA BICARBONATE 8.4% 50 ML SYG ONE (11:42)
[2018-08-19] MEDS: NORepinephrine 8MG/250 ML (PMX 250 ML IV SCH (13:03)
[2018-08-19] MEDS: CEFEPIME 2GM/50 ML (PMX) 50 ML IVPB SCH ×2 (13:36→21:56)
--- NOTE | 2018-08-19 14:13 | CONS ---
Consult Date/Type/Reason Admit Date/Time Jul 29, 2018 at 06:16 Initial Consult Date 08/10/18 Requesting Provider: SANDI MURDOCK NP Date/Time of Note DATE: 08/19/18 TIME: 14:11 Subjective S/p hypoxic cardiac arrest with asystole - short time of asystole with rapid CPR noted - acidosis much better - now in ICU - con't supportive Rx - titrate levo gtt off as tolerated. ROS: No fever, no chills, no nausea, no vomiting, no diarrhea/constipation - per nurse Objective Vitals Vital Signs Date Temp Pulse Resp B/P (MAP) Pulse Ox O2 O2 Flow FiO2 Time Delivery Rate 08/19/18 73 21 111/49 13:45 (69) 08/19/18 98 Mechanical 13:00 Ventilator 08/19/18 50 12:00 08/19/18 97.7 12:00 08/19/18 6.0 07:26 Intake and Output 08/18/18 08/18/18 08/19/18 1515:00 23:00 07:00 IntakeIntake Total 240 ml 240 ml 200 ml OutputOutput Total 400 ml 400 ml BalanceBalance 240 ml -160 ml -200 ml Exam General: WN/WD/NAD, AOx 0 - intubated HEENT: Unicetric/atraumatic/EOMI (does not follow commands) NECK: JVD elevated, no thyromegaly Lymph: no lymphadenopathy HEART: regular with no S3, II/ systolic murmur at apex LUNGS: Coarse sounds ABD: soft, NT, ND, +BS : Intact Neuro: non focal SKIN: chronic changes EXT: trace edema Results/Medications Result Diagram: 08/19/18 1212 08/19/18 1212 Results 24 hrs Laboratory Tests Test 08/18/18 17:16 08/18/18 20:24 08/19/18 05:09 08/19/18 07:29 Bedside Glucose 158 133 197 White Blood 14.7 #H Count Red Blood Count 3.02 L Hemoglobin 8.6 L Hematocrit 28.5 L Mean Corpuscular 94.4 Volume Mean Corpuscular 28.5 L Hemoglobin Mean Corpuscular 30.2 L Hemoglobin Nellie nt Red Cell 17.2 H Distribution Width Platelet Count 832 H Mean Platelet 9.2 Volume Immature 1.000 H Granulocytes % Neutrophils % 80.2 H Lymphocytes % 9.6 L Monocytes % 8.8 Eosinophils % 0.1 Basophils % 0.3 Nucleated Red 0.0 Blood Cells % Immature 0.140 H Granulocytes # Neutrophils # 11.8 H Lymphocytes # 1.4 Monocytes # 1.3 H Eosinophils # 0.0 Basophils # 0.1 Nucleated Red 0.0 Blood Cells # Sodium Level 141 Potassium Level 5.2 H Chloride Level 110 Carbon Dioxide 18 L Level Anion Gap 13 Blood Urea 32 H Nitrogen Creatinine 1.10 H Est Glomerular 49 L Filtrat Rate mL/min Glucose Level 203 Calcium Level 9.0 Test 08/19/18 07:30 08/19/18 07:56 08/19/18 08:40 08/19/18 12:05 Blood Gas Blood arterial Blood arterial Specimen Source Arterial Blood 08/19/2018 7:40: 08/19/2018 10:55 Date Drawn 24 AM :42 AM Arterial Blood 7.171 *L 7.310 L pH (Temp corrected) Arterial Blood 40.2 27.4 L pCO2 (Temp correct) Arterial Blood 53.3 *L 302.9 H pO2 (Temp corrected) Arterial Blood 14.4 L 13.5 L HCO3 Arterial Blood -13.3 L -11.6 L Base Excess Arterial Blood 77.6 L 99.9 H Oxygen Saturatio n Quinten Test N/A N/A Arterial Blood LB LB Gas Puncture Site Arterial 0.4 0.3 Blood Carboxyhem oglobin Arterial Blood 0.4 0.2 Methemoglobin Blood Gas A-a O2 619.5 H 382.7 H Differential Oxyhemoglobin 77.0 L 99.4 H Percent Blood Gas 37.0 37.0 Temperature Blood Gas MASK - NRB VENT - AC Modality FiO2 100.0 100.0 Blood Gas ADEEL ALMANZA RN Critical Value Read Back Blood Gas T KASSAII SANDING MACHINE BU[employer] PERSON Notified Whom Blood Gas 08/19/2018 7:50: 08/19/2018 11:05 Notified Time 51 AM :18 AM Blood Gas 16.0 Respiration Rate Blood Gas Actual 23 Respiration Rate Blood Gas 0.70 Inspiratory Time Blood Gas Tidal 500.0 Volume Blood Gas High 5.0 PEEP Setting Bedside Glucose 154 180 Test 08/19/18 12:12 White Blood 18.1 #H Count Red Blood Count 2.51 L Hemoglobin 7.2 L Hematocrit 22.6 #L Mean Corpuscular 90.0 Volume Mean Corpuscular 28.7 L Hemoglobin Mean Corpuscular 31.9 L Hemoglobin Nellie nt Red Cell 16.9 H Distribution Width Platelet Count 672 H Mean Platelet 9.1 Volume Immature 1.400 H Granulocytes % Neutrophils % 85.6 H Lymphocytes % 7.0 L Monocytes % 5.9 Eosinophils % 0.0 Basophils % 0.1 Nucleated Red 0.0 Blood Cells % Immature 0.250 H Granulocytes # Neutrophils # 15.5 H Lymphocytes # 1.3 Monocytes # 1.1 H Eosinophils # 0.0 Basophils # 0.0 Nucleated Red 0.0 Blood Cells # Sodium Level 142 Potassium Level 4.3 Chloride Level 110 Carbon Dioxide 20 L Level Anion Gap 12 Blood Urea 36 H Nitrogen Creatinine 1.18 H Est Glomerular 45 L Filtrat Rate mL/min Glucose Level 182 Lactic Acid 2.0 Level Calcium Level 8.4 Total Bilirubin 0.2 Direct Bilirubin 0.00 Indirect 0.2 Bilirubin Aspartate Amino 1222 H Transf (AST/SGOT ) Alanine 475 H Aminotransferase (ALT/SGPT) Alkaline 95 Phosphatase Total Protein 6.1 Albumin 2.9 L Globulin 3.20 Albumin/Globulin 0.90 Ratio Home Meds Active Scripts Magnesium Oxide* (Mag-Oxide*) 400 Mg Tablet, 400 MG PO BID for 3 Days, #10 TAB Prov:FERNANDO YANCEY MD 07/08/18 Lactobacillus Rhamnosus GG (Culturelle) 1 Each Capsule, 1 CAP PO BID for 14 Days, #30 CAP Prov:FERNANDO YANCEY MD 07/08/18 Acetaminophen* (Tylenol*) 325 Mg Tablet, 650 MG PO Q6H PRN for .PAIN 1-3 OR TEMP for 10 Days, #10 TAB Prov:FERNANDO YANCEY MD 07/08/18 Lisinopril* (Lisinopril*) 5 Mg Tablet, 2.5 MG PO DAILY for 15 Days, #15 TAB Prov:FERNANDO YANCEY MD 07/08/18 Sulfamethoxazole/Trimethoprim (Sulfamethoxazole-Tmp Ds Tablet) 1 Each Tablet, 1 TAB PO BID for 5 Days, #10 TAB Prov:FERNANDO YANCEY MD 07/08/18 Reported Medications Sodium Bicarbonate* (Sodium Bicarbonate*) 650 Mg Tablet, 650 MG PO TID, TAB 07/05/18 Propylene Glycol-Peg 400 (Systane 0.3-0.4% Eye Drops) 0.3-0.4 % - 30 Ml Drops, 1 DROP BOTH EYES Q4H PRN for DRY EYES, #1 BOTTLE 07/05/18 Pantoprazole* (Protonix*) 40 Mg Tablet.dr, 40 MG PO QAM, TAB 07/05/18 Ondansetron Hcl* (Zofran*) 8 Mg Tablet, 8 MG PO Q6H PRN for NAUSEA AND OR VOMITING, TAB 07/05/18 Metoprolol Succinate* (Toprol XL*) 25 Mg Tab.sr.24h, 25 MG PO BID, #30 TAB 07/05/18 Metformin* (Glucophage*) 500 Mg Tab, 500 MG PO WITH BREAKFAST, #30 TAB 07/05/18 Levothyroxine Sodium* (Synthroid*) 50 Mcg Tablet, 50 MCG PO BEFORE BREAKFAST, #30 TAB 07/05/18 Hydrocodone/Acetaminophen ([place] 5-325 Tablet) 1 Each Tablet, 1 EACH PO Q6 PRN for PAIN, TAB 07/05/18 [place]-3 Fatty Acids/Fish Oil (Fish Oil 1,000 mg Capsule) 1 Each Capsule, 1 EACH PO DAILY, CAP 07/05/18 Cyanocobalamin* (Vitamin B-12*) 50 Mcg Tablet, 50 MCG PO DAILY, TAB 07/05/18 Clopidogrel Bisulfate (Clopidogrel) 75 Mg Tablet, 75 MG PO DAILY, #30 TAB 07/05/18 Atorvastatin Calcium* (Atorvastatin Calcium*) 20 Mg Tablet, 20 MG PO QHS, #30 TAB 07/05/18 Aspirin* (Aspirin* EC) 81 Mg Tablet.dr, 81 MG PO DAILY, TAB 07/05/18 Artificial Tears* (Akwa Oint*) 3.5 Gm Oint, 1 APPLIC BOTH EYES Q1H PRN for DRY EYES, #1 TUB 07/05/18 Albuterol Sulfate (Proair Respiclick) 90 Mcg Aer.pow.ba, 2 PUFFS INHALATION Q4 PRN for WHEEZING, BOTTLE 07/05/18 Medications Current Medications IV Flush (NS 3 ml) 3 ml PER PROTOCOL IV Last administered on 08/05/18at 09:07; Admin Dose 3 ML; Start 07/29/18 at 06:30 Ondansetron HCl (Zofran Inj) 4 mg Q6H PRN IV NAUSEA/VOMITING Last administered on 08/18/18 18:34; Admin Dose 4 MG; Start 07/29/18 at 06:30 Acetaminophen/ Hydrocodone Bitart ([place] (5/325)) 1 tab Q6H PRN PO .MOD PAIN 4- 6 Last administered on 08/19/18 03:42; Admin Dose 1 TAB; Start 07/29/18 at 06:30 Pantoprazole (Protonix Tab) 40 mg DAILY@06 PO Last administered on 08/18/18 06:30; Admin Dose 40 MG; Start 07/29/18 at 06:30 Enoxaparin Sodium (Lovenox) 30 mg DAILY SC Last administered on 08/18/18 09:40; Admin Dose 30 MG; Start 07/29/18 at 09:00 Diagnostic Test (Pha) (Accu-Chek) 1 ea 02 XX Last administered on 08/18/18 02:00; Admin Dose 1 EA; Start 07/30/18 at 02:00 Acetaminophen (Tylenol Tab) 650 mg Q6H PRN PO .PAIN 1-3 OR TEMP Last administered on 08/17/18 05:46; Admin Dose 650 MG; Start 07/29/18 at 07:00 Eye Lubricant (Akwa Oint) 1 applic Q1H PRN BOTH EYES DRY EYES; Start 07/29/18 at 08:00 Aspirin (Halfprin) 81 mg DAILY PO Last administered on 08/18/18 08:41; Admin Dose 81 MG; Start 07/29/18 at 09:00 Atorvastatin Calcium (Lipitor) 20 mg QHS PO Last administered on 08/18/18 20:26; Admin Dose 20 MG; Start 07/29/18 at 21:00 Clopidogrel Bisulfate (plaVIX) 75 mg DAILY PO Last administered on 08/18/18 08:40; Admin Dose 75 MG; Start 07/29/18 at 09:00 Cyanocobalamin (Vitamin B12) 50 mcg DAILY PO Last administered on 08/18/18 08:40; Admin Dose 50 MCG; Start 07/29/18 at 09:00 Levothyroxine Sodium (Synthroid) 50 mcg BEFORE BREAKFAST PO Last administered on 08/18/18 06:30; Admin Dose 50 MCG; Start 07/29/18 at 07:00 Metoprolol Succinate (Toprol Xl) 25 mg BID PO Last administered on 08/18/18at 20:26; Admin Dose 25 MG; Start 07/29/18 at 09:00 Polyethyl Glycol/ Propylene Glycol (Systane 0.3-0.4% Eye Drops) 1 drop Q4H PRN BOTH EYES DRY EYES; Start 07/29/18 at 08:00 Albuterol (Ventolin Hfa) 2 puff Q4H RESP THERAPY PRN INH WHEEZING; Start 07/29/18 at 09:00 Miscellaneous Information 1 ea NOTE XX ; Start 07/29/18 at 07:00 Glucose (Glutose) 15 gm Q15M PRN PO DECREASED GLUCOSE; Start 07/29/18 at 07:00 Glucose (Glutose) 22.5 gm Q15M PRN PO DECREASED GLUCOSE; Start 07/29/18 at 07:00 Dextrose (D50w Syringe) 25 ml Q15M PRN IV DECREASED GLUCOSE; Start 07/29/18 at 07:00 Dextrose (D50w Syringe) 50 ml Q15M PRN IV DECREASED GLUCOSE; Start 07/29/18 at 07:00 Glucagon (Glucagen) 1 mg Q15M PRN IM DECREASED GLUCOSE; Start 07/29/18 at 07:00 Glucose (Glutose) 15 gm Q15M PRN BUCCAL DECREASED GLUCOSE; Start 07/29/18 at 07 :00 Alprazolam (Xanax) 0.25 mg Q8H PRN PO ANXIETY Last administered on 08/19/18at 00:10; Admin Dose 0.25 MG; Start 07/29/18 at 12:30 Polyethylene Glycol (Miralax) 17 gm DAILY PO Last administered on 08/17/18at 08:44; Admin Dose 17 GM; Start 07/29/18 at 12:30 Docusate Sodium (Colace) 100 mg BID PO Last administered on 08/18/18at 20:26; Admin Dose 100 MG; Start 07/31/18 at 21:00 Magnesium Hydroxide (Milk Of Mag) 30 ml Q12H PRN PO STOMACH UPSET/CRAMPING Last administered on 07/31/18at 21:28; Admin Dose 30 ML; Start 07/31/18 at 20:00 Al Hydrox/Mg Hydrox/Simethicone (Mag-Al Plus) 30 ml Q6H PRN PO GASTROINTESTINAL UPSET Last administered on 08/16/18 23:45; Admin Dose 30 ML; Start 08/03/18 at 17:30 Insulin Aspart (Novolog Insulin Pen) (Adult SC Insulin - Moder... AC MEALS AND BEDTIME SC Last administered on 08/19/18 12:16; Admin Dose 2 UNIT; Start 08/08/18 at 17:30 Insulin Glargine (Lantus) 8 units DAILY@2000 SC Last administered on 08/18/18 20:59; Admin Dose 8 UNITS; Start 08/09/18 at 20:00 Insulin Aspart (Novolog Insulin Pen) 3 unit WITH MEALS SC Last administered on 08/19/18 12:17; Admin Dose 3 UNIT; Start 08/09/18 at 18:00 Zolpidem Tartrate (Ambien) 5 mg HS PRN PO INSOMNIA Last administered on 08/18/18 20:35; Admin Dose 5 MG; Start 08/12/18 at 21:30 Albuterol/ Ipratropium (Duoneb) 3 ml Q2H RESP THERAPY PRN HHN sob Last administered on 08/19/18 03:28; Admin Dose 3 ML; Start 08/14/18 at 12:00 Diltiazem HCl (Cardizem Iv) 5 mg Q4 PRN IV HR>70 for Cardiac CTA Last administered on 08/19/18 03:50; Admin Dose 5 MG; Start 08/17/18 at 11:30 Lorazepam (Ativan) 1 mg Q8H PRN IV ANXIETY Last administered on 08/18/18 09:59; Admin Dose 1 MG; Start 08/17/18 at 15:30 Epoetin Glenn-epbx (Retacrit (Non-Esrd)) 20,000 unit TuThSa@1700 SC Last administered on 08/18/18 17:14; Admin Dose 20,000 UNIT; Start 08/18/18 at 17:00 Simethicone (Mylicon) 160 mg Q6H PRN PO DISTENSION/GAS/BLOATING Last administered on 08/18/18 08:49; Admin Dose 160 MG; Start 08/17/18 at 20:00 Sodium Chloride 1,000 ml @ 50 mls/hr Q20H IV Last administered on 08/19/18 05:29; Admin Dose 50 MLS/HR; Start 08/18/18 at 09:54 Propofol 100 ml @ 1.568 mls/ hr Q12H IV Last administered on 08/19/18at 12:39; Admin Dose 9.409 MLS/HR; Start 08/19/18 at 09:30 Sodium Chloride 1,000 ml @ 100 mls/hr Q10H IV Last administered on 08/19/18at 10:34; Admin Dose 100 MLS/HR; Start 08/19/18 at 10:30 Norepinephrine 250 ml @ 1.875 mls/ hr TITRATE IV Last administered on 08/19/18 13:03; Admin Dose 1.875 MLS/HR; Start 08/19/18 at 10:30 Cefepime HCl 50 ml @ 100 mls/hr Q8 IVPB Last administered on 08/19/18at 13:36; Admin Dose 100 MLS/HR; Start 08/19/18 at 14:00 Assessment/Plan Hospital Course (Demo Recall) 1.Preop-neg trop .3 including this am. NL EF by echo - stres test with small rev defect - will defer to Dr. sim if LHC is warranted - med Rx for now - CTA to follow. Now s/p hypoxic carpercapnic arrest - resumed circlation post CODE Blue. 2.abnl ecg-ECG today with inferior ST elevation but with normal concaviity and Q's isolated to lead 3 No chest pain or sob/neg trop this am. ? pericarditics. NL EF by echo this admit - no CP now - currently, no ectopy on tele VS stable now. 3.Uterine cancer - oncology follows 4.DM - on mes, keep euglycemic 5.HTN - well controlled, will monitor clinically - om meds 6.HL 7. ARF - CR better at 1.18. 8. Asystole - no indication for pacer with reversible cause. TUAN LANGLEY MD Aug 19, 2018 14:13
--- NOTE | 2018-08-19 15:41 | EN ---
Date/Time of Note Date/Time of Note DATE: 08/19/18 TIME: 10:30 ER Progress Note CODE BLUE NOTE Subjective: I was called out of the emergency department to the floor for a CODE BLUE event. The patient was receiving high-quality CPR and being bagged by respiratory therapy. Once at bedside, I immediately took over as the CODE BLUE leader and ran the code. Briefly, this is a 68-year-old female who presented to the hospital in respiratory distress. She reportedly was not tolerating BiPAP prior to this event. Please note the history and physical exam is limited as the patient is in full cardiac arrest and is receiving CPR at this time. Objective: Vital signs reviewed Const: Unresponsive Head: Normocephalic, Atraumatic Eyes: PERRL ENT: Normal External Ears, Nose. Dry mucous membranes. Resp: No voluntary respirations. Respirations being assisted via BVM by a respiratory therapist with symmetric chest wall larsen. Cardio: Pulseless, no heart beat. Abd: Non distended Skin: No petechiae or rashes Back: Deferred Ext: No cyanosis, or edema Neur: Unresponsive. Eyes closed. No voluntary movements or response to pain. Nonverbal. GCS 3. Assessment: Cardiac Arrest Plan: Please see the code sheet for full details. The patient received 1 mg of epinephrine prior to return of spontaneous circulation. I do suspect a respiratory arrest. The patient did require emergent intubation as described below. The endotracheal tube was in position but high riding. The radiologist suggesting advancing the tube 1 to 2 cm. This was completed. The final results of the CODE BLUE was return of spontaneous circulation. The primary team will resume care at this time. ENDOTRACHEAL INTUBATION: Performed by me. Pre-assessment performed. Pre-oxygenation performed with 100% oxygen. RSI: Performed w/o complication or hypoxic events. Medications as ordered. Blade: Mac 3 via video Larygnoscope ET Tube: 7.5 mm Depth: 22 cm at the lip Intubation confirmed by colorimetric CO2, equal breath sounds, quiet over the stomach. RADIOLOGY CXR FINDINGS: Endotracheal tube tip 5.7 cm above the malena. Enteric tube courses be low the diaphragm with tip collimated from view increased aeration at the right upper lung.. The heart, lungs and mediastinum are otherwise unchanged. IMPRESSION: High-riding endotracheal tube, suggest advancing 1-2 cm. Enteric tube in satisfactory position. Improved aeration in the right lung with large pleural effusion. Electronically viewed and signed by Kathleen Ramírez, Physician on 08/19/2018 09:47 LILA WONG MD Aug 19, 2018 15:41
[2018-08-19] MEDS ORDERED: [UNRECOGNIZED DRUG - OTHER] IV SCH ×2 (17:00)
[2018-08-19] MEDS ORDERED: D5W IV SCH ×2 (17:00)
[2018-08-19] MEDS: INSULIN GLARGINE [LANTus] (100 UNITS/ML) SYG SC SCH (20:53)
[2018-08-19] MEDS: ATORVASTATIN 20 MG TAB PO SCH (20:54)
--- NOTE | 2018-08-19 22:14 | CONS ---
DATE OF ADMISSION: 07/29/2018 DATE OF CONSULTATION: 08/19/2018 TYPE OF CONSULTATION: Infectious disease. REASON FOR CONSULTATION: Antibiotic management. HISTORY OF PRESENT ILLNESS: Madison Rausch is a 68-year-old female, who comes in with swelling of bot h legs for 4 weeks. She also has increasing extremity swelling and pain. One month ago, she was adm itted for cellulitis. She denies shortness of breath or chest pain. PAST PROBLEMS INCLUDE: 1. Endarterectomy of the right carotid and left carotid arteries. 2. Vitrectomy of the right and left eyes. 3. Cataract surgery to the right eye. 4. Stroke with mild left-sided residual. 5. Left eye tube implants. 6. Diabetes. 7. GERD. The patient has some respiratory distress and cardiac abnormalities. FAMILY HISTORY: Noncontributory. SOCIAL HISTORY: She does not smoke, drink or abuse drugs. ALLERGIES: LEVAQUIN, BUT NOT TO PENICILLIN, SULFA OR FOODS. MEDICATIONS: Per chart. REVIEW OF SYSTEMS: As per HPI. HOSPITAL COURSE: On admission on the , white count was 10.4, H and H of 9.4 and 28.9, platelet co unt 581,000. BUN and creatinine 28/1.50 with 66% neutrophils. Urinalysis was negative for leukocyte esterase and nitrites, so she presented with bilateral lower extremity edema, without fever, probabl e congestive heart failure. The patient also has a BUN and creatinine if 20/1.5, which may be consis tent with acute kidney injury. The patient has had a long hospital course. A 2D echocardiogram was done, which shows transthoracic echocardiogram. Normal right ventricular size. Normal right ventric ular systolic function. She has a pretty normal left ventricular systolic function, grade I diastoli c dysfunction. No significant valvular abnormalities. She was seen by Dr. Maldonado for a vascular and he ordered some lower extremity vascular studies. White count on the was 15,000. BUN and cr eatinine 33/1.3. The patient was seen by GI on the . The patient had large amounts of retained stool on imaging, possible compression of the rectum by the uterine mass. Gastric emptying study pen ding. LEAD MINER and oncology consults were called. She was started on Reglan at that point. She was seen by ELECTRIC FREIGHT CAR OPERATOR. Pelvic mass CT shows evidence of lymphadenopathy, thickened endometrial lining and pelvi c enlarged uterus ultrasound, which is abnormal for postmenopausal woman. She has a complete LEAD MINER frankie luation. In the context of pelvic mass, pelvic lymphadenopathy and liver lesion, questionable for po ssible metastasis and right pleural effusion as well as possibility of metastatic cancer cannot be ru led out. Need to proceed with endometrial biopsy. Tumor markers including CA-125 and CA 19-9, which is ordered. Cannot rule out leiomyosarcoma. Imaging including MRI of the abdomen and pelvis is rec ommended. Gastric emptying study was ordered. The patient with elevated CA 19-9 and CA-125. Pelvic ultrasound shows a 5 x 5.4 cm mass along the posterior margin of the uterus. Oncology consultation is pending. Discussed with nephrology. We will get an MRI pelvic with contrast for further assessme nt and plan. As noted, she had an LEAD MINER evaluation, recommended MRI of the liver, bilateral lower extr emity edema with diastolic heart failure, venous insufficiency; peripheral artery disease, the patien t is on aspirin and Plavix; diabetes. MRI of the abdomen shows multiple parenchymal and capsular sabiha er lesions, etiology unclear. Status post percutaneous biopsy on August 09. Pathology pending. Bio psy shows a mass on the right lobe of the liver. 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 Cytology is not different. Th e patient was seen by Dr. Tate Mora of hematology and oncology, stage IV endometrial carcinoma o n based of the liver biopsy. She has some degree of dementia. Dr. Nevarez is planning to do surgery to remove the uterus. She is likely not curable, but surgery would allow debulking at a minimum and wou ld also allow better staging. Also, curative treatment is not possible since she is already stage IV . She has nonoliguric acute kidney injury with previous baseline creatinine of 0.9 on the . [place] rine mass with metastatic lesion to liver. The patient is not a very good candidate for any chemothe rapy as per oncology, bilateral lower extremity edema, diabetes. MRI of the abdomen shows multiple p arenchymal and capsular liver lesions. Efforts to optimize are medically are underway. She was seen by Dr. Corral in pulmonary evaluation. She was admitted with right upper quadrant pain. Liver biops y shows metastatic cancer. Moderate right pleural effusion, status post paracentesis. Cytology pend ing. History of diabetes, hypothyroidism and hypertension. She has a left corneal opacity. She was seen by Dr. Jett on the . She is not having pain, metastatic carcinoma of the uterus. White count of 11,000. A request was made for genomic studies to determine whether the tumor may be respo nsive to PD-L1 inhibitors. The patient is likely to have mixture of iron deficiency anemia and anemi a of chronic disease. The patient had a code blue. The patient was in respiratory distress. She wa s not tolerating BiPAP in the past. She had endotracheal intubation. Chest x-ray is appropriate. S he was also seen by Dr. Rand for hypoxic cardiac arrest with asystole. Short time of asystole with rapid CPR. Acidosis much better now in the ICU. Continue to titrate. PHYSICAL EXAMINATION: GENERAL: She is a well-developed, well-nourished female, who is intubated. SKIN: Without generalized rash. HEENT: Within normal limits. NECK: Supple. LYMPH NODES: None palpable. CHEST: Decreased breath sounds at the bases. HEART: Grade II/ systolic ejection murmur along the left sternal border. LUNGS: Also have coarse rhonchi. ABDOMEN: Soft, nontender, without organosplenomegaly or masses. EXTREMITIES: Without cyanosis, clubbing, or edema. RECTAL AND GENITAL: Deferred. NEUROLOGIC: The patient is intubated and sedated. Her urine shows mixed gram-positive organisms from way back on the . She was currently placed on cefepime because of probable aspiration. Chest x-ray shows high riding ET tube, enteric tube in sati sfactory position, improved aeration of the right lung with a large pleural effusion. A thoracentesi s has been done on the with 750 mL of fluid aspirated. A repeat ultrasound shows moderate amoun ts residual effusion, which cannot be aspirated due to septation. In conclusion, this is a very ill 68-year-old female with metastatic carcinoma from the uterus to the liver and possibly to the lungs w ith large pleural effusion. Her prognosis is very poor. She is currently on cefepime. Blood cultur es were done. MRSA screen was done today. I will dictate my findings to the hospitalist and to the many consultants mentioned. Dictated By: MARY VILLATORO MD, JD/EMA Conf#: [id number] DID#: [id number] CC: TAN MAIER MD;*[facility]*
[2018-08-20] VITALS (104 sets, daily range): BP systolic 83–147; BP diastolic 42–96; PULSE 56–92; RESP 0–37
[2018-08-20] MEDS: INSULIN ASPART [NOVOLOG] 3 ML PEN SC SCH ×6 (00:49→20:36)
[2018-08-20] MEDS: LORAZEPAM 2 MG INJ IV PRN ×2 (01:43→12:39)
[2018-08-20] MEDS: ACCU-CHEK XX SCH (01:47)
[2018-08-20] MEDS ORDERED: ACCU-CHEK XX SCH (02:00)
[2018-08-20] MEDS: PROPOFOL 100 ML IV SCH ×3 (03:40→18:41)
[2018-08-20] MEDS: CEFEPIME 2GM/50 ML (PMX) 50 ML IVPB SCH ×2 (06:01→17:15)
[2018-08-20] MEDS: PANTOPRAZOLE (EC) 40 MG TAB PO SCH (06:01)
[2018-08-20] MEDS: LEVOTHYROXINE 50 MCG TAB PO SCH (06:01)
[2018-08-20] MEDS ORDERED: POTASSIUM CHLORIDE 20 MEQ POWDER FOR ORAL SOLN NGT ONE (08:00)
--- NOTE | 2018-08-20 08:03 | PN ---
DATE: 08/20/2018 SUBJECTIVE: The patient remains critically ill on full ventilatory support. The patient yesterday h ad a cardiac arrest, CODE BLUE. The patient was given CPR and had eventual return of spontaneous cir culation. No other events noted overnight. No hemoptysis, hematemesis, hematochezia. OBJECTIVE: VITAL SIGNS: Blood pressure is 115/68, respirations 17, pulse 66, temperature 98.6. HEENT: Head is normocephalic. NECK: Supple. HEART: Regular rate. LUNGS: Show diminished breath sounds at the base. ABDOMEN: Soft, nontender to palpation without rebound or guarding. EXTREMITIES: Negative for clubbing, cyanosis. Positive edema. DERMATOLOGIC: No rashes. MUSCULOSKELETAL: No joint effusions. NEUROLOGIC: Patient is obtunded, unable to do adequate exam. MEDICATIONS: Reviewed. LABORATORY DATA: Has been reviewed. ASSESSMENT AND PLAN: 1. Nonoliguric acute kidney injury on top of chronic kidney disease with previous baseline creatinin e around 1.2 to 1.4 mg/dL. Etiology of acute kidney injury is secondary to hemodynamics. Renal func tion appears to be at baseline. At this point, continue current treatment plan, supportive care, david ally dose all meds. 2. Anemia. Continue to monitor hemoglobin and hematocrit levels. 3. Mineral bone disorder, monitor calcium and phosphorus levels. 4. Hypokalemia. Continue to monitor and replete as needed. 5. Cardiac arrest. Etiology is unclear, possible respiratory versus cardiac. The patient has had s pontaneous return of circulation. Continue to monitor closely. Follow up with cardiology. 6. Ventilator dependent respiratory failure. Vent settings and ABG was reviewed. Continue to monit or. Follow up with pulmonary. 7. Pleural effusion, status post thoracentesis. Continue to monitor. 8. Coronary artery disease. The patient has a positive stress test. Continue to monitor. Follow u p with cardiology. 9. Hypothyroidism. Continue Synthroid. 10. Diabetes. Continue current insulin regimen. 11. Liver mass. Findings consistent with metastatic carcinosarcoma. Continue to monitor. Follow u p with oncology. 12. Lower extremity edema, etiology is multifactorial secondary to diastolic heart failure, venous i nsufficiency. Continue to monitor closely. We will give intermittent diuretic therapy as needed. 13. Systemic inflammatory response syndrome. The patient is on empiric antibiotics. Will continue to monitor. 14. Metabolic acidosis, etiology secondary to cardiac arrest, acute kidney injury. The patient caro ins on bicarbonate drip. Bicarbonate levels have improved. Will discontinue bicarbonate drip and co ntinue to monitor. Please note, I spent over 30 minutes of critical care time with this patient. Dictated By: JACOB BROCK DO NR/NTS Conf#: [id number] DID#: [id number] CC: TAN MAIER MD;*EndCC*
[2018-08-20] MEDS: SOD CHLORIDE 0.9% 1,000 ML IV SCH (08:51)
[2018-08-20] MEDS: NORepinephrine 8MG/250 ML (PMX 250 ML IV SCH (08:57)
[2018-08-20] MEDS: DOCUSATE SODIUM 100 MG CAP PO SCH ×2 (09:00→20:33)
[2018-08-20] MEDS: METOPROLOL (XL) 25 MG TAB PO SCH (09:00)
[2018-08-20] MEDS: POLYETHYLENE GLYCOL 17 GM PACKET PO SCH (09:00)
[2018-08-20] MEDS: CLOPIDOGREL 75 MG TAB PO SCH (09:32)
[2018-08-20] MEDS: ASPIRIN (EC) 81 MG TAB PO SCH (09:32)
[2018-08-20] MEDS: CYANOCOBALAMIN 100 MCG TAB PO SCH (09:34)
[2018-08-20] MEDS: ENOXAPARIN 30 MG/0.3 ML SYG SC SCH (09:35)
--- NOTE | 2018-08-20 09:51 | PN ---
Date/Time of Note Date/Time of Note DATE: 08/20/18 TIME: 09:49 Assessment/Plan VTE Prophylaxis Risk score (from Ns)>0 risk: 13 SCD applied (from Ns): No SCD contraindicated: other Pharmacological prophylaxis: LMWH Lines/Catheters IV C[facility] Type [facility]from [facility]): Central Line Central line still needed: Yes Urinary Cath still in place: Yes Reason Cath still needed: other (indicate) Assessment/Plan Hospital Course SUBJECTIVE: Remains intubated. On propofol. OBJECTIVE: Physical Exam General: Adequately build 68 year-old female lying in bed in no apparent distress. HEENT: Normocephalic, atraumatic. Eyes: Anicteric sclerae, conjunctivae clear. ENT: Nasal septum midline, oral mucosa is dry. Neck supple, no JVD noticed. Respiratory: Bilaterally diminished breath sounds. ETT to mechanical ventil ator. Cardiovascular: S1, S2 heard. Regular rate and rhythm. Abdomen: Soft, nontender, and nondistended. Bowel sounds positive in all 4 quadrants. Genitourinary: Deferred. Extremities: No cyanosis, no clubbing. Bilateral lower extremity 1+ edema. Neurologic: The patient is sedated. Labs & Vitals per chart ASSESSMENT & PLAN This is a 68-year-old female with past medical history of diabetes mellitus, peripheral artery disease, stroke, dyslipidemia, and hypothyroidism. The patient presented to the emergency room with multiple complaints including bilateral lower extremity edema, unintentional weight loss, etc. The patient was admitted to inpatient setting for further treatment and evaluation. The patient underwent a CT scan of the abdomen and pelvis on 08/01/2018 that showed abnormal enlargement of the uterus with significant thickening of the endometrial stripe with pelvis MRI showing irregular 9 cm exophytic posterior uterine mass. 1. Metastatic carcinosarcoma of uterus. Being followed by oncology. Awaiting genomic studies to determine mind responsiveness of this tumor to PD-L1 inhibitors. 2. Malignant pleural effusion. Status post right-sided thoracentesis on 08/15/2018. 3. Positive Lexiscan myocardial perfusion study. Study positive for partially reversible perfusion defect in the distal anterior wall. Being followed by cardiology. Continue aspirin plus Plavix. 4. Status post cardiopulmonary arrest on 08/19/2018. Etiology could be secondary to underlying hypoxia versus others. Intubated and on pressors. Poor prognosis. 5. Peripheral artery disease. Being followed by vascular surgery. Optimize medical management. Continue aspirin plus Plavix. Continue statins. 6. Diabetes mellitus. Hemoglobin A1c 6.3. Continue sliding scale insulin along with basal. 7. Hypothyroidism. Continue Synthroid. 8. Acute kidney injury. Being followed by nephrology. Use nephrotoxic drugs with caution. 9. Normocytic anemia. Monitor H&H closely. Continue iron supplements. 10. Acute respiratory failure. Hypoxic. Ventilator management as per pulmonology. 11. Shock. Continue IV pressors for blood pressure support. 12. Fluids, electrolytes, and nutrition. NPO. 13. DVT prophylaxis. Subcutaneous Lovenox (renally dosed). 14. Plan. Continue current management. Poor prognosis. Address plan of care with the patient's family. The patient was seen in collaboration with Dr. Hancock. Critical care time: 35 mins. Result Diagram: 08/20/1844408/20/18444 Results 24hrs Laboratory Tests Test 08/19/18 12:05 08/19/18 12:12 08/19/18 14:00 08/19/18 16:32 Bedside Glucose 180 157 White Blood 18.1 #H Count Red Blood Count 2.51 L Hemoglobin 7.2 L Hematocrit 22.6 #L Mean Corpuscular 90.0 Volume Mean Corpuscular 28.7 L Hemoglobin Mean Corpuscular 31.9 L Hemoglobin Nellie nt Red Cell 16.9 H Distribution Width Platelet Count 672 H Mean Platelet 9.1 Volume Immature 1.400 H Granulocytes % Neutrophils % 85.6 H Lymphocytes % 7.0 L Monocytes % 5.9 Eosinophils % 0.0 Basophils % 0.1 Nucleated Red 0.0 Blood Cells % Immature 0.250 H Granulocytes # Neutrophils # 15.5 H Lymphocytes # 1.3 Monocytes # 1.1 H Eosinophils # 0.0 Basophils # 0.0 Nucleated Red 0.0 Blood Cells # Sodium Level 142 Potassium Level 4.3 Chloride Level 110 Carbon Dioxide 20 L Level Anion Gap 12 Blood Urea 36 H Nitrogen Creatinine 1.18 H Est Glomerular 45 L Filtrat Rate mL/min Glucose Level 182 Lactic Acid 2.0 Level Calcium Level 8.4 Total Bilirubin 0.2 Direct Bilirubin 0.00 Indirect 0.2 Bilirubin Aspartate Amino 1222 H Transf (AST/SGOT ) Alanine 475 H Aminotransferase (ALT/SGPT) Alkaline 95 Phosphatase Total Protein 6.1 Albumin 2.9 L Globulin 3.20 Albumin/Globulin 0.90 Ratio Blood Gas Blood arterial Specimen Source Arterial Blood 08/19/2018 2:23: Date Drawn 00 PM Arterial Blood 7.394 pH (Temp corrected) Arterial Blood 26.5 L pCO2 (Temp correct) Arterial Blood 92.5 pO2 (Temp corrected) Arterial Blood 15.8 L HCO3 Arterial Blood -7.9 L Base Excess Arterial Blood 97.0 Oxygen Saturatio n Quinten Test ACCEPTAB Arterial Blood Right Radial Gas Puncture Site Arterial 0.3 Blood Carboxyhem oglobin Arterial Blood 0.2 Methemoglobin Blood Gas A-a O2 162.2 H Differential Oxyhemoglobin 96.5 Percent Blood Gas 37.0 Temperature Blood Gas 16.0 Respiration Rate Blood Gas Actual 20 Respiration Rate Blood Gas VENT - AC Modality FiO2 40.0 Blood Gas Tidal 450.0 Volume Blood Gas Low 5.0 PEEP Setting Blood Gas cmoleno color technician Notified Whom Blood Gas 08/19/2018 2:39: Notified Time 00 PM Test 08/19/18 20:49 08/19/18 23:54 08/20/18 00:47 08/20/18 04:45 Bedside Glucose 201 221 H Hemoglobin 10.1 #L 10.0 L White Blood 16.7 H Count Red Blood Count 3.49 #L Hematocrit 30.5 #L Mean Corpuscular 87.4 Volume Mean Corpuscular 28.7 L Hemoglobin Mean Corpuscular 32.8 Hemoglobin Nellie nt Red Cell 16.9 H Distribution Width Platelet Count 689 H Mean Platelet 9.4 Volume Immature 0.900 H Granulocytes % Neutrophils % 84.1 H Lymphocytes % 7.8 L Monocytes % 6.9 Eosinophils % 0.1 Basophils % 0.2 Nucleated Red 0.0 Blood Cells % Immature 0.150 H Granulocytes # Neutrophils # 14.0 H Lymphocytes # 1.3 Monocytes # 1.2 H Eosinophils # 0.0 Basophils # 0.0 Nucleated Red 0.0 Blood Cells # Sodium Level 140 Potassium Level 3.4 L Chloride Level 110 Carbon Dioxide 20 L Level Anion Gap 10 Blood Urea 39 H Nitrogen Creatinine 1.22 H Est Glomerular 44 L Filtrat Rate mL/min Glucose Level 173 Calcium Level 8.3 L Test 08/20/18 05:11 08/20/18 05:36 08/20/18 07:00 08/20/18 09:42 Bedside Glucose 174 126 Lab Scanned BLOOD TRANSFUSI Report ON Blood Gas Blood arterial Specimen Source Arterial Blood 08/20/2018 7:15: Date Drawn 59 AM Arterial Blood 7.502 H pH (Temp corrected) Arterial Blood 24.2 L pCO2 (Temp correct) Arterial Blood 70.9 L pO2 (Temp corrected) Arterial Blood 18.5 L HCO3 Arterial Blood -3.2 L Base Excess Arterial Blood 94.1 L Oxygen Saturatio n Quinten Test ACCEPTAB Arterial Blood Right Radial Gas Puncture Site Arterial 0.3 Blood Carboxyhem oglobin Arterial Blood 0 Methemoglobin Blood Gas A-a O2 114.6 H Differential Oxyhemoglobin 93.8 Percent Blood Gas 37.0 Temperature Blood Gas 16.0 Respiration Rate Blood Gas Actual 20 Respiration Rate Blood Gas VENT - AC Modality FiO2 30.0 Blood Gas Tidal 450.0 Volume Blood Gas Low 5.0 PEEP Setting Blood Gas TM Notified Whom Blood Gas 08/20/2018 7:24: Notified Time 40 AM Exam/Review of Systems Exam Vitals Vital Signs Date Temp Pulse Resp B/P (MAP) Pulse Ox O2 O2 Flow FiO2 Time Delivery Rate 08/20/18 59 101/47 98 08:45 (65) 08/20/18 0 08:30 08/20/18 97.6 Mechanical 08:00 Ventilator 08/20/18 30 07:40 08/19/18 6.0 07:26 Intake and Output 08/19/18 08/19/18 08/20/18 1515:00 23:00 07:00 IntakeIntake Total 1890.146 ml 1007.816 ml 600.219 ml OutputOutput Total 385 ml 230 ml 130 ml BalanceBalance 1505.146 ml 777.816 ml 470.219 ml Results Results 24hrs Laboratory Tests Test 08/19/18 12:05 08/19/18 12:12 08/19/18 14:00 08/19/18 16:32 Bedside Glucose 180 157 White Blood 18.1 #H Count Red Blood Count 2.51 L Hemoglobin 7.2 L Hematocrit 22.6 #L Mean Corpuscular 90.0 Volume Mean Corpuscular 28.7 L Hemoglobin Mean Corpuscular 31.9 L Hemoglobin Nellie nt Red Cell 16.9 H Distribution Width Platelet Count 672 H Mean Platelet 9.1 Volume Immature 1.400 H Granulocytes % Neutrophils % 85.6 H Lymphocytes % 7.0 L Monocytes % 5.9 Eosinophils % 0.0 Basophils % 0.1 Nucleated Red 0.0 Blood Cells % Immature 0.250 H Granulocytes # Neutrophils # 15.5 H Lymphocytes # 1.3 Monocytes # 1.1 H Eosinophils # 0.0 Basophils # 0.0 Nucleated Red 0.0 Blood Cells # Sodium Level 142 Potassium Level 4.3 Chloride Level 110 Carbon Dioxide 20 L Level Anion Gap 12 Blood Urea 36 H Nitrogen Creatinine 1.18 H Est Glomerular 45 L Filtrat Rate mL/min Glucose Level 182 Lactic Acid 2.0 Level Calcium Level 8.4 Total Bilirubin 0.2 Direct Bilirubin 0.00 Indirect 0.2 Bilirubin Aspartate Amino 1222 H Transf (AST/SGOT ) Alanine 475 H Aminotransferase (ALT/SGPT) Alkaline 95 Phosphatase Total Protein 6.1 Albumin 2.9 L Globulin 3.20 Albumin/Globulin 0.90 Ratio Blood Gas Blood arterial Specimen Source Arterial Blood 08/19/2018 2:23: Date Drawn 00 PM Arterial Blood 7.394 pH (Temp corrected) Arterial Blood 26.5 L pCO2 (Temp correct) Arterial Blood 92.5 pO2 (Temp corrected) Arterial Blood 15.8 L HCO3 Arterial Blood -7.9 L Base Excess Arterial Blood 97.0 Oxygen Saturatio n Quinten Test ACCEPTAB Arterial Blood Right Radial Gas Puncture Site Arterial 0.3 Blood Carboxyhem oglobin Arterial Blood 0.2 Methemoglobin Blood Gas A-a O2 162.2 H Differential Oxyhemoglobin 96.5 Percent Blood Gas 37.0 Temperature Blood Gas 16.0 Respiration Rate Blood Gas Actual 20 Respiration Rate Blood Gas VENT - AC Modality FiO2 40.0 Blood Gas Tidal 450.0 Volume Blood Gas Low 5.0 PEEP Setting Blood Gas cmoleno color technician Notified Whom Blood Gas 08/19/2018 2:39: Notified Time 00 PM Test 08/19/18 20:49 08/19/18 23:54 08/20/18 00:47 08/20/18 04:45 Bedside Glucose 201 221 H Hemoglobin 10.1 #L 10.0 L White Blood 16.7 H Count Red Blood Count 3.49 #L Hematocrit 30.5 #L Mean Corpuscular 87.4 Volume Mean Corpuscular 28.7 L Hemoglobin Mean Corpuscular 32.8 Hemoglobin Nellie nt Red Cell 16.9 H Distribution Width Platelet Count 689 H Mean Platelet 9.4 Volume Immature 0.900 H Granulocytes % Neutrophils % 84.1 H Lymphocytes % 7.8 L Monocytes % 6.9 Eosinophils % 0.1 Basophils % 0.2 Nucleated Red 0.0 Blood Cells % Immature 0.150 H Granulocytes # Neutrophils # 14.0 H Lymphocytes # 1.3 Monocytes # 1.2 H Eosinophils # 0.0 Basophils # 0.0 Nucleated Red 0.0 Blood Cells # Sodium Level 140 Potassium Level 3.4 L Chloride Level 110 Carbon Dioxide 20 L Level Anion Gap 10 Blood Urea 39 H Nitrogen Creatinine 1.22 H Est Glomerular 44 L Filtrat Rate mL/min Glucose Level 173 Calcium Level 8.3 L Test 08/20/18 05:11 08/20/18 05:36 08/20/18 07:00 08/20/18 09:42 Bedside Glucose 174 126 Lab Scanned BLOOD TRANSFUSI Report ON Blood Gas Blood arterial Specimen Source Arterial Blood 08/20/2018 7:15: Date Drawn 59 AM Arterial Blood 7.502 H pH (Temp corrected) Arterial Blood 24.2 L pCO2 (Temp correct) Arterial Blood 70.9 L pO2 (Temp corrected) Arterial Blood 18.5 L HCO3 Arterial Blood -3.2 L Base Excess Arterial Blood 94.1 L Oxygen Saturatio n Quinten Test ACCEPTAB Arterial Blood Right Radial Gas Puncture Site Arterial 0.3 Blood Carboxyhem oglobin Arterial Blood 0 Methemoglobin Blood Gas A-a O2 114.6 H Differential Oxyhemoglobin 93.8 Percent Blood Gas 37.0 Temperature Blood Gas 16.0 Respiration Rate Blood Gas Actual 20 Respiration Rate Blood Gas VENT - AC Modality FiO2 30.0 Blood Gas Tidal 450.0 Volume Blood Gas Low 5.0 PEEP Setting Blood Gas TM Notified Whom Blood Gas 08/20/2018 7:24: Notified Time 40 AM Medications Medication Current Medications IV Flush (NS 3 ml) 3 ml PER PROTOCOL IV Last administered on 08/05/18 09:07; Admin Dose 3 ML; Start 07/29/18 at 06:30 Ondansetron HCl (Zofran Inj) 4 mg Q6H PRN IV NAUSEA/VOMITING Last administered on 08/18/18 18:34; Admin Dose 4 MG; Start 07/29/18 at 06:30 Acetaminophen/ Hydrocodone Bitart ([place] (5/325)) 1 tab Q6H PRN PO .MOD PAIN 4- 6 Last administered on 08/19/18 03:42; Admin Dose 1 TAB; Start 07/29/18 at 06:30 Pantoprazole (Protonix Tab) 40 mg DAILY@06 PO Last administered on 08/20/18 06:01; Admin Dose 40 MG; Start 07/29/18 at 06:30 Enoxaparin Sodium (Lovenox) 30 mg DAILY SC Last administered on 08/20/18 09:35; Admin Dose 30 MG; Start 07/29/18 at 09:00 Diagnostic Test (Pha) (Accu-Chek) 1 ea 02 XX Last administered on 08/18/18 02:00; Admin Dose 1 EA; Start 07/30/18 at 02:00 Acetaminophen (Tylenol Tab) 650 mg Q6H PRN PO .PAIN 1-3 OR TEMP Last administered on 08/17/18 05:46; Admin Dose 650 MG; Start 07/29/18 at 07:00 Eye Lubricant (Akwa Oint) 1 applic Q1H PRN BOTH EYES DRY EYES; Start 07/29/18 at 08:00 Aspirin (Halfprin) 81 mg DAILY PO Last administered on 08/20/18 09:32; Admin Dose 81 MG; Start 07/29/18 at 09:00 Atorvastatin Calcium (Lipitor) 20 mg QHS PO Last administered on 08/19/18 20:54; Admin Dose 20 MG; Start 07/29/18 at 21:00 Clopidogrel Bisulfate (plaVIX) 75 mg DAILY PO Last administered on 08/20/18 09:32; Admin Dose 75 MG; Start 07/29/18 at 09:00 Cyanocobalamin (Vitamin B12) 50 mcg DAILY PO Last administered on 08/20/18 09:34; Admin Dose 50 MCG; Start 07/29/18 at 09:00 Levothyroxine Sodium (Synthroid) 50 mcg BEFORE BREAKFAST PO Last administered on 08/20/18 06:01; Admin Dose 50 MCG; Start 07/29/18 at 07:00 Metoprolol Succinate (Toprol Xl) 25 mg BID PO Last administered on 08/18/18 20:26; Admin Dose 25 MG; Start 07/29/18 at 09:00 Polyethyl Glycol/ Propylene Glycol (Systane 0.3-0.4% Eye Drops) 1 drop Q4H PRN BOTH EYES DRY EYES; Start 07/29/18 at 08:00 Albuterol (Ventolin Hfa) 2 puff Q4H RESP THERAPY PRN INH WHEEZING; Start 07/29/18 at 09:00 Miscellaneous Information 1 ea NOTE XX ; Start 07/29/18 at 07:00 Glucose (Glutose) 15 gm Q15M PRN PO DECREASED GLUCOSE; Start 07/29/18 at 07:00 Glucose (Glutose) 22.5 gm Q15M PRN PO DECREASED GLUCOSE; Start 07/29/18 at 07:00 Dextrose (D50w Syringe) 25 ml Q15M PRN IV DECREASED GLUCOSE; Start 07/29/18 at 07:00 Dextrose (D50w Syringe) 50 ml Q15M PRN IV DECREASED GLUCOSE; Start 07/29/18 at 07:00 Glucagon (Glucagen) 1 mg Q15M PRN IM DECREASED GLUCOSE; Start 07/29/18 at 07:00 Glucose (Glutose) 15 gm Q15M PRN BUCCAL DECREASED GLUCOSE; Start 07/29/18 at 07:00 Alprazolam (Xanax) 0.25 mg Q8H PRN PO ANXIETY Last administered on 08/19/18at 00:10; Admin Dose 0.25 MG; Start 07/29/18 at 12:30 Polyethylene Glycol (Miralax) 17 gm DAILY PO Last administered on 08/17/18at 08:44; Admin Dose 17 GM; Start 07/29/18 at 12:30 Docusate Sodium (Colace) 100 mg BID PO Last administered on 08/19/18at 20:54; Admin Dose 100 MG; Start 07/31/18 at 21:00 Magnesium Hydroxide (Milk Of Mag) 30 ml Q12H PRN PO STOMACH UPSET/CRAMPING Last administered on 07/31/18at 21:28; Admin Dose 30 ML; Start 07/31/18 at 20:00 Al Hydrox/Mg Hydrox/Simethicone (Mag-Al Plus) 30 ml Q6H PRN PO GASTROINTESTINAL UPSET Last administered on 08/16/18at 23:45; Admin Dose 30 ML; Start 08/03/18 at 17:30 Insulin Glargine (Lantus) 8 units DAILY@2000 SC Last administered on 08/19/18at 20:53; Admin Dose 8 UNITS; Start 08/09/18 at 20:00 Zolpidem Tartrate (Ambien) 5 mg HS PRN PO INSOMNIA Last administered on 08/18/18 20:35; Admin Dose 5 MG; Start 08/12/18 at 21:30 Albuterol/ Ipratropium (Duoneb) 3 ml Q2H RESP THERAPY PRN HHN sob Last administered on 08/19/18 03:28; Admin Dose 3 ML; Start 08/14/18 at 12:00 Diltiazem HCl (Cardizem Iv) 5 mg Q4 PRN IV HR>70 for Cardiac CTA Last administered on 08/19/18 03:50; Admin Dose 5 MG; Start 08/17/18 at 11:30 Lorazepam (Ativan) 1 mg Q8H PRN IV ANXIETY Last administered on 08/20/18 01:43; Admin Dose 1 MG; Start 08/17/18 at 15:30 Epoetin Glenn-epbx (Retacrit (Non-Esrd)) 20,000 unit TuThSa@1700 SC Last administered on 08/18/18 17:14; Admin Dose 20,000 UNIT; Start 08/18/18 at 17:00 Simethicone (Mylicon) 160 mg Q6H PRN PO DISTENSION/GAS/BLOATING Last administered on 08/18/18 08:49; Admin Dose 160 MG; Start 08/17/18 at 20:00 Propofol 100 ml @ 1.568 mls/ hr Q12H IV Last administered on 08/20/18 03:40; Admin Dose 11.918 MLS/HR; Start 08/19/18 at 09:30 Norepinephrine 250 ml @ 1.875 mls/ hr TITRATE IV Last administered on 08/20/18 08:57; Admin Dose 9.375 MLS/HR; Start 08/19/18 at 10:30 Cefepime HCl 50 ml @ 100 mls/hr Q8 IVPB Last administered on 08/20/18 06:01; Admin Dose 100 MLS/HR; Start 08/19/18 at 14:00 Insulin Aspart (Novolog Insulin Pen) NOVOLOG *MODERATE* ALGORI... Q4 SC Last administered on 08/20/18 05:13; Admin Dose 2 UNIT; Start 08/20/18 at 01:00 Sodium Chloride 1,000 ml @ 50 mls/hr Q20H IV Last administered on 08/20/18at 08:51; Admin Dose 50 MLS/HR; Start 08/20/18 at 08:00 SANDI MURDOCK NP Aug 20, 2018 09:51
--- NOTE | 2018-08-20 11:47 | CONS ---
Assessment/Plan Assessment/Plan Hospital Course (Demo Recall) Patient is intubated sedated on low-dose levo fed drip no fevers overnight WBC 16.7 H&H 10 and 30.5 platelets 689 neutrophils 84.1 BUN 39 creatinine 1.22 Chest x-ray this morning revealed large right pleural effusion and associated consolidation. Antimicrobials: Cefepime Indwelling: Endotracheal tube NG tube Stafford catheter femoral triple-lumen catheter Physical examination: Well-developed fragile elderly woman who is in no distress. Head atraumatic normocephalic sclera nonicteric vehicle mucosa dry neck is supple chest rise symmetrical breath sounds diminished bases heart: S1- S2 abdomen soft bowel sounds hypoactive extremities with trace edema Assessment: 1. Shock status post asystolic cardiopulmonary arrest 2. Respiratory failure 3. Persistent right pleural effusion likely malignant, possibly parapneumonic 4. 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 Acute kidney insufficiency 6. Diabetes 7. Possible pneumonia Plan: Continue present care antibiotics, send sputum culture, follow recommendations of specialists Consultation Date/Type/Reason Admit Date/Time Jul 29, 2018 at 06:16 Initial Consult Date 08/15/18 Type of Consult id Requesting Provider: SANDI MURDOCK NP Date/Time of Note DATE: 08/20/18 TIME: 11:47 Exam/Review of Systems Exam Vitals Vital Signs Date Temp Pulse Resp B/P (MAP) Pulse Ox O2 O2 Flow FiO2 Time Delivery Rate 08/20/18 68 20 98 30 09:49 08/20/18 101/47 08:45 (65) 08/20/18 97.6 Mechanical 08:00 Ventilator 08/19/18 6.0 07:26 Intake and Output 08/19/18 08/19/18 08/20/18 1515:00 23:00 07:00 IntakeIntake Total 1890.146 ml 1007.816 ml 600.219 ml OutputOutput Total 385 ml 230 ml 130 ml BalanceBalance 1505.146 ml 777.816 ml 470.219 ml Results Result Diagram: 08/20/18 0445 08/20/18 0445 Results 24hrs Laboratory Tests Test 08/19/18 12:05 08/19/18 12:12 08/19/18 14:00 08/19/18 16:32 Bedside Glucose 180 157 White Blood 18.1 #H Count Red Blood Count 2.51 L Hemoglobin 7.2 L Hematocrit 22.6 #L Mean Corpuscular 90.0 Volume Mean Corpuscular 28.7 L Hemoglobin Mean Corpuscular 31.9 L Hemoglobin Nellie nt Red Cell 16.9 H Distribution Width Platelet Count 672 H Mean Platelet 9.1 Volume Immature 1.400 H Granulocytes % Neutrophils % 85.6 H Lymphocytes % 7.0 L Monocytes % 5.9 Eosinophils % 0.0 Basophils % 0.1 Nucleated Red 0.0 Blood Cells % Immature 0.250 H Granulocytes # Neutrophils # 15.5 H Lymphocytes # 1.3 Monocytes # 1.1 H Eosinophils # 0.0 Basophils # 0.0 Nucleated Red 0.0 Blood Cells # Sodium Level 142 Potassium Level 4.3 Chloride Level 110 Carbon Dioxide 20 L Level Anion Gap 12 Blood Urea 36 H Nitrogen Creatinine 1.18 H Est Glomerular 45 L Filtrat Rate mL/min Glucose Level 182 Lactic Acid 2.0 Level Calcium Level 8.4 Total Bilirubin 0.2 Direct Bilirubin 0.00 Indirect 0.2 Bilirubin Aspartate Amino 1222 H Transf (AST/SGOT ) Alanine 475 H Aminotransferase (ALT/SGPT) Alkaline 95 Phosphatase Total Protein 6.1 Albumin 2.9 L Globulin 3.20 Albumin/Globulin 0.90 Ratio Blood Gas Blood arterial Specimen Source Arterial Blood 08/19/2018 2:23: Date Drawn 00 PM Arterial Blood 7.394 pH (Temp corrected) Arterial Blood 26.5 L pCO2 (Temp correct) Arterial Blood 92.5 pO2 (Temp corrected) Arterial Blood 15.8 L HCO3 Arterial Blood -7.9 L Base Excess Arterial Blood 97.0 Oxygen Saturatio n Quinten Test ACCEPTAB Arterial Blood Right Radial Gas Puncture Site Arterial 0.3 Blood Carboxyhem oglobin Arterial Blood 0.2 Methemoglobin Blood Gas A-a O2 162.2 H Differential Oxyhemoglobin 96.5 Percent Blood Gas 37.0 Temperature Blood Gas 16.0 Respiration Rate Blood Gas Actual 20 Respiration Rate Blood Gas VENT - AC Modality FiO2 40.0 Blood Gas Tidal 450.0 Volume Blood Gas Low 5.0 PEEP Setting Blood 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 Whom Blood Gas 08/19/2018 2:39: Notified Time 00 PM Test 08/19/18 20:49 08/19/18 23:54 08/20/18 00:47 08/20/18 04:45 Bedside Glucose 201 221 H Hemoglobin 10.1 #L 10.0 L White Blood 16.7 H Count Red Blood Count 3.49 #L Hematocrit 30.5 #L Mean Corpuscular 87.4 Volume Mean Corpuscular 28.7 L Hemoglobin Mean Corpuscular 32.8 Hemoglobin Nellie nt Red Cell 16.9 H Distribution Width Platelet Count 689 H Mean Platelet 9.4 Volume Immature 0.900 H Granulocytes % Neutrophils % 84.1 H Lymphocytes % 7.8 L Monocytes % 6.9 Eosinophils % 0.1 Basophils % 0.2 Nucleated Red 0.0 Blood Cells % Immature 0.150 H Granulocytes # Neutrophils # 14.0 H Lymphocytes # 1.3 Monocytes # 1.2 H Eosinophils # 0.0 Basophils # 0.0 Nucleated Red 0.0 Blood Cells # Sodium Level 140 Potassium Level 3.4 L Chloride Level 110 Carbon Dioxide 20 L Level Anion Gap 10 Blood Urea 39 H Nitrogen Creatinine 1.22 H Est Glomerular 44 L Filtrat Rate mL/min Glucose Level 173 Calcium Level 8.3 L Test 08/20/18 05:11 08/20/18 05:36 08/20/18 07:00 08/20/18 09:42 Bedside Glucose 174 126 Lab Scanned BLOOD TRANSFUSI Report ON Blood Gas Blood arterial Specimen Source Arterial Blood 08/20/2018 7:15: Date Drawn 59 AM Arterial Blood 7.502 H pH (Temp corrected) Arterial Blood 24.2 L pCO2 (Temp correct) Arterial Blood 70.9 L pO2 (Temp corrected) Arterial Blood 18.5 L HCO3 Arterial Blood -3.2 L Base Excess Arterial Blood 94.1 L Oxygen Saturatio n Quinten Test ACCEPTAB Arterial Blood Right Radial Gas Puncture Site Arterial 0.3 Blood Carboxyhem oglobin Arterial Blood 0 Methemoglobin Blood Gas A-a O2 114.6 H Differential Oxyhemoglobin 93.8 Percent Blood Gas 37.0 Temperature Blood Gas 16.0 Respiration Rate Blood Gas Actual 20 Respiration Rate Blood Gas VENT - AC Modality FiO2 30.0 Blood Gas Tidal 450.0 Volume Blood Gas Low 5.0 PEEP Setting Blood Gas TM Notified Whom Blood Gas 08/20/2018 7:24: Notified Time 40 AM Medications Medication Current Medications IV Flush (NS 3 ml) 3 ml PER PROTOCOL IV Last administered on 08/05/18at 09:07; Admin Dose 3 ML; Start 07/29/18 at 06:30 Ondansetron HCl (Zofran Inj) 4 mg Q6H PRN IV NAUSEA/VOMITING Last administered on 08/18/18 18:34; Admin Dose 4 MG; Start 07/29/18 at 06:30 Acetaminophen/ Hydrocodone Bitart ([place] (5/325)) 1 tab Q6H PRN PO .MOD PAIN 4- 6 Last administered on 08/19/18 03:42; Admin Dose 1 TAB; Start 07/29/18 at 06:30 Enoxaparin Sodium (Lovenox) 30 mg DAILY SC Last administered on 08/20/18 09:35; Admin Dose 30 MG; Start 07/29/18 at 09:00 Diagnostic Test (Pha) (Accu-Chek) 1 ea 02 XX Last administered on 08/18/18 02:00; Admin Dose 1 EA; Start 07/30/18 at 02:00 Acetaminophen (Tylenol Tab) 650 mg Q6H PRN PO .PAIN 1-3 OR TEMP Last administered on 08/17/18 05:46; Admin Dose 650 MG; Start 07/29/18 at 07:00 Eye Lubricant (Akwa Oint) 1 applic Q1H PRN BOTH EYES DRY EYES; Start 07/29/18 at 08:00 Aspirin (Halfprin) 81 mg DAILY PO Last administered on 08/20/18 09:32; Admin Dose 81 MG; Start 07/29/18 at 09:00 Atorvastatin Calcium (Lipitor) 20 mg QHS PO Last administered on 08/19/18 20:54; Admin Dose 20 MG; Start 07/29/18 at 21:00 Clopidogrel Bisulfate (plaVIX) 75 mg DAILY PO Last administered on 08/20/18 0 9:32; Admin Dose 75 MG; Start 07/29/18 at 09:00 Cyanocobalamin (Vitamin B12) 50 mcg DAILY PO Last administered on 08/20/18 09:34; Admin Dose 50 MCG; Start 07/29/18 at 09:00 Levothyroxine Sodium (Synthroid) 50 mcg BEFORE BREAKFAST PO Last administered on 08/20/18 06:01; Admin Dose 50 MCG; Start 07/29/18 at 07:00 Metoprolol Succinate (Toprol Xl) 25 mg BID PO Last administered on 08/18/18 20:26; Admin Dose 25 MG; Start 07/29/18 at 09:00 Polyethyl Glycol/ Propylene Glycol (Systane 0.3-0.4% Eye Drops) 1 drop Q4H PRN BOTH EYES DRY EYES; Start 07/29/18 at 08:00 Albuterol (Ventolin Hfa) 2 puff Q4H RESP THERAPY PRN INH WHEEZING; Start 07/29/18 at 09:00 Miscellaneous Information 1 ea NOTE XX ; Start 07/29/18 at 07:00 Glucose (Glutose) 15 gm Q15M PRN PO DECREASED GLUCOSE; Start 07/29/18 at 07:00 Glucose (Glutose) 22.5 gm Q15M PRN PO DECREASED GLUCOSE; Start 07/29/18 at 07:00 Dextrose (D50w Syringe) 25 ml Q15M PRN IV DECREASED GLUCOSE; Start 07/29/18 at 07:00 Dextrose (D50w Syringe) 50 ml Q15M PRN IV DECREASED GLUCOSE; Start 07/29/18 at 07:00 Glucagon (Glucagen) 1 mg Q15M PRN IM DECREASED GLUCOSE; Start 07/29/18 at 07:00 Glucose (Glutose) 15 gm Q15M PRN BUCCAL DECREASED GLUCOSE; Start 07/29/18 at 07:00 Alprazolam (Xanax) 0.25 mg Q8H PRN PO ANXIETY Last administered on 08/19/18at 00:10; Admin Dose 0.25 MG; Start 07/29/18 at 12:30 Polyethylene Glycol (Miralax) 17 gm DAILY PO Last administered on 08/17/18at 08:44; Admin Dose 17 GM; Start 07/29/18 at 12:30 Docusate Sodium (Colace) 100 mg BID PO Last administered on 08/19/18at 20:54; Admin Dose 100 MG; Start 07/31/18 at 21:00 Magnesium Hydroxide (Milk Of Mag) 30 ml Q12H PRN PO STOMACH UPSET/CRAMPING Last administered on 07/31/18at 21:28; Admin Dose 30 ML; Start 07/31/18 at 20:00 Al Hydrox/Mg Hydrox/Simethicone (Mag-Al Plus) 30 ml Q6H PRN PO GASTROINTESTINAL UPSET Last administered on 08/16/18at 23:45; Admin Dose 30 ML; Start 08/03/18 at 1 7:30 Insulin Glargine (Lantus) 8 units DAILY@2000 SC Last administered on 08/19/18 20:53; Admin Dose 8 UNITS; Start 08/09/18 at 20:00 Albuterol/ Ipratropium (Duoneb) 3 ml Q2H RESP THERAPY PRN HHN sob Last administered on 08/19/18 03:28; Admin Dose 3 ML; Start 08/14/18 at 12:00 Diltiazem HCl (Cardizem Iv) 5 mg Q4 PRN IV HR>70 for Cardiac CTA Last administered on 08/19/18 03:50; Admin Dose 5 MG; Start 08/17/18 at 11:30 Lorazepam (Ativan) 1 mg Q8H PRN IV ANXIETY Last administered on 08/20/18 01:43; Admin Dose 1 MG; Start 08/17/18 at 15:30 Epoetin Glenn-epbx (Retacrit (Non-Esrd)) 20,000 unit TuThSa@1700 SC Last administered on 08/18/18 17:14; Admin Dose 20,000 UNIT; Start 08/18/18 at 17:00 Simethicone (Mylicon) 160 mg Q6H PRN PO DISTENSION/GAS/BLOATING Last administered on 08/18/18 08:49; Admin Dose 160 MG; Start 08/17/18 at 20:00 Propofol 100 ml @ 1.568 mls/ hr Q12H IV Last administered on 08/20/18 03:40; Admin Dose 11.918 MLS/HR; Start 08/19/18 at 09:30 Norepinephrine 250 ml @ 1.875 mls/ hr TITRATE IV Last administered on 08/20/18 08:57; Admin Dose 9.375 MLS/HR; Start 08/19/18 at 10:30 Insulin Aspart (Novolog Insulin Pen) NOVOLOG *MODERATE* ALGORI... Q4 SC Last administered on 08/20/18 05:13; Admin Dose 2 UNIT; Start 08/20/18 at 01:00 Sodium Chloride 1,000 ml @ 50 mls/hr Q20H IV Last administered on 08/20/18 08:51; Admin Dose 50 MLS/HR; Start 08/20/18 at 08:00 Lansoprazole (Prevacid) 30 mg DAILY@06 NGT ; Start 08/21/18 at 06:00 Cefepime HCl 50 ml @ 100 mls/hr Q12H IVPB ; Start 08/20/18 at 18:00 DENISSE THAO NP Aug 20, 2018 11:47
--- NOTE | 2018-08-20 12:03 | CONS ---
Consult Date/Type/Reason Admit Date/Time Jul 29, 2018 at 06:16 Initial Consult Date 08/15/18 Type of Consult Pulmonary Requesting Provider: SANDI MURDOCK NP Date/Time of Note DATE: 08/20/18 TIME: 12:01 Subjective Patient continues mechanical ventilation remains largely somnolent currently requiring vasopressor support and sedation. Objective Vital Signs Date Temp Pulse Resp B/P (MAP) Pulse Ox O2 O2 Flow FiO2 Time Delivery Rate 08/20/18 68 20 98 30 09:49 08/20/18 101/47 08:45 (65) 08/20/18 97.6 Mechanical 08:00 Ventilator 08/19/18 6.0 07:26 Intake and Output 08/19/18 08/19/18 08/20/18 1515:00 23:00 07:00 IntakeIntake Total 1890.146 ml 1007.816 ml 600.219 ml OutputOutput Total 385 ml 230 ml 130 ml BalanceBalance 1505.146 ml 777.816 ml 470.219 ml Exam GENERAL: Elderly appearing lady orally intubated on mechanical ventilation VITAL SIGNS: per chart NECK: Supple. No JVD or lymphadenopathy. CARDIAC EXAM: S1, S2. No added sounds or murmurs. CHEST: Diminished air entry right side greater than left ABDOMEN: Soft, nontender. No guarding or rebound. EXTREMITIES: No cyanosis, clubbing or edema. NEUROLOGIC: Generalized weakness. No focal deficits. Vent Setting Ventilator Support Mode: AC Fraction of Inspired Oxygen pe: 30 Positive End Expiratory Pressu: 5.0 Results/Medications Result Diagram: 08/20/18 0445 08/20/18 0445 Results 24 hrs Laboratory Tests Test 08/19/18 12:05 08/19/18 12:12 08/19/18 14:00 08/19/18 16:32 Bedside Glucose 180 157 White Blood 18.1 #H Count Red Blood Count 2.51 L Hemoglobin 7.2 L Hematocrit 22.6 #L Mean Corpuscular 90.0 Volume Mean Corpuscular 28.7 L Hemoglobin Mean Corpuscular 31.9 L Hemoglobin Nellie nt Red Cell 16.9 H Distribution Width Platelet Count 672 H Mean Platelet 9.1 Volume Immature 1.400 H Granulocytes % Neutrophils % 85.6 H Lymphocytes % 7.0 L Monocytes % 5.9 Eosinophils % 0.0 Basophils % 0.1 Nucleated Red 0.0 Blood Cells % Immature 0.250 H Granulocytes # Neutrophils # 15.5 H Lymphocytes # 1.3 Monocytes # 1.1 H Eosinophils # 0.0 Basophils # 0.0 Nucleated Red 0.0 Blood Cells # Sodium Level 142 Potassium Level 4.3 Chloride Level 110 Carbon Dioxide 20 L Level Anion Gap 12 Blood Urea 36 H Nitrogen Creatinine 1.18 H Est Glomerular 45 L Filtrat Rate mL/min Glucose Level 182 Lactic Acid 2.0 Level Calcium Level 8.4 Total Bilirubin 0.2 Direct Bilirubin 0.00 Indirect 0.2 Bilirubin Aspartate Amino 1222 H Transf (AST/SGOT ) Alanine 475 H Aminotransferase (ALT/SGPT) Alkaline 95 Phosphatase Total Protein 6.1 Albumin 2.9 L Globulin 3.20 Albumin/Globulin 0.90 Ratio Blood Gas Blood arterial Specimen Source Arterial Blood 08/19/2018 2:23: Date Drawn 00 PM Arterial Blood 7.394 pH (Temp corrected) Arterial Blood 26.5 L pCO2 (Temp correct) Arterial Blood 92.5 pO2 (Temp corrected) Arterial Blood 15.8 L HCO3 Arterial Blood -7.9 L Base Excess Arterial Blood 97.0 Oxygen Saturatio n Quinten Test ACCEPTAB Arterial Blood Right Radial Gas Puncture Site Arterial 0.3 Blood Carboxyhem oglobin Arterial Blood 0.2 Methemoglobin Blood Gas A-a O2 162.2 H Differential Oxyhemoglobin 96.5 Percent Blood Gas 37.0 Temperature Blood Gas 16.0 Respiration Rate Blood Gas Actual 20 Respiration Rate Blood Gas VENT - AC Modality FiO2 40.0 Blood Gas Tidal 450.0 Volume Blood Gas Low 5.0 PEEP Setting 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 Whom Blood Gas 08/19/2018 2:39: Notified Time 00 PM Test 08/19/18 20:49 08/19/18 23:54 08/20/18 00:47 08/20/18 04:45 Bedside Glucose 201 221 H Hemoglobin 10.1 #L 10.0 L White Blood 16.7 H Count Red Blood Count 3.49 #L Hematocrit 30.5 #L Mean Corpuscular 87.4 Volume Mean Corpuscular 28.7 L Hemoglobin Mean Corpuscular 32.8 Hemoglobin Nellie nt Red Cell 16.9 H Distribution Width Platelet Count 689 H Mean Platelet 9.4 Volume Immature 0.900 H Granulocytes % Neutrophils % 84.1 H Lymphocytes % 7.8 L Monocytes % 6.9 Eosinophils % 0.1 Basophils % 0.2 Nucleated Red 0.0 Blood Cells % Immature 0.150 H Granulocytes # Neutrophils # 14.0 H Lymphocytes # 1.3 Monocytes # 1.2 H Eosinophils # 0.0 Basophils # 0.0 Nucleated Red 0.0 Blood Cells # Sodium Level 140 Potassium Level 3.4 L Chloride Level 110 Carbon Dioxide 20 L Level Anion Gap 10 Blood Urea 39 H Nitrogen Creatinine 1.22 H Est Glomerular 44 L Filtrat Rate mL/min Glucose Level 173 Calcium Level 8.3 L Test 08/20/18 05:11 08/20/18 05:36 08/20/18 07:00 08/20/18 09:42 Bedside Glucose 174 126 Lab Scanned BLOOD TRANSFUSI Report ON Blood Gas Blood arterial Specimen Source Arterial Blood 08/20/2018 7:15: Date Drawn 59 AM Arterial Blood 7.502 H pH (Temp corrected) Arterial Blood 24.2 L pCO2 (Temp correct) Arterial Blood 70.9 L pO2 (Temp corrected) Arterial Blood 18.5 L HCO3 Arterial Blood -3.2 L Base Excess Arterial Blood 94.1 L Oxygen Saturatio n Quinten Test ACCEPTAB Arterial Blood Right Radial Gas Puncture Site Arterial 0.3 Blood Carboxyhem oglobin Arterial Blood 0 Methemoglobin Blood Gas A-a O2 114.6 H Differential Oxyhemoglobin 93.8 Percent Blood Gas 37.0 Temperature Blood Gas 16.0 Respiration Rate Blood Gas Actual 20 Respiration Rate Blood Gas VENT - AC Modality FiO2 30.0 Blood Gas Tidal 450.0 Volume Blood Gas Low 5.0 PEEP Setting Blood Gas TM Notified Whom Blood Gas 08/20/2018 7:24: Notified Time 40 AM Medications Current Medications IV Flush (NS 3 ml) 3 ml PER PROTOCOL IV Last administered on 08/05/18 09:07; Admin Dose 3 ML; Start 07/29/18 at 06:30 Ondansetron HCl (Zofran Inj) 4 mg Q6H PRN IV NAUSEA/VOMITING Last administered on 08/18/18 18:34; Admin Dose 4 MG; Start 07/29/18 at 06:30 Acetaminophen/ Hydrocodone Bitart ([place] (5/325)) 1 tab Q6H PRN PO .MOD PAIN 4- 6 Last administered on 08/19/18 03:42; Admin Dose 1 TAB; Start 07/29/18 at 06:30 Enoxaparin Sodium (Lovenox) 30 mg DAILY SC Last administered on 08/20/18 09:35; Admin Dose 30 MG; Start 07/29/18 at 09:00 Diagnostic Test (Pha) (Accu-Chek) 1 ea 02 XX Last administered on 08/18/18 02:00; Admin Dose 1 EA; Start 07/30/18 at 02:00 Acetaminophen (Tylenol Tab) 650 mg Q6H PRN PO .PAIN 1-3 OR TEMP Last administered on 08/17/18 05:46; Admin Dose 650 MG; Start 07/29/18 at 07:00 Eye Lubricant (Akwa Oint) 1 applic Q1H PRN BOTH EYES DRY EYES; Start 07/29/18 at 08:00 Aspirin (Halfprin) 81 mg DAILY PO Last administered on 08/20/18 09:32; Admin Dose 81 MG; Start 07/29/18 at 09:00 Atorvastatin Calcium (Lipitor) 20 mg QHS PO Last administered on 08/19/18 20:54; Admin Dose 20 MG; Start 07/29/18 at 21:00 Clopidogrel Bisulfate (plaVIX) 75 mg DAILY PO Last administered on 08/20/18 09:32; Admin Dose 75 MG; Start 07/29/18 at 09:00 Cyanocobalamin (Vitamin B12) 50 mcg DAILY PO Last administered on 08/20/18 09:34; Admin Dose 50 MCG; Start 07/29/18 at 09:00 Levothyroxine Sodium (Synthroid) 50 mcg BEFORE BREAKFAST PO Last administered on 08/20/18 06:01; Admin Dose 50 MCG; Start 07/29/18 at 07:00 Metoprolol Succinate (Toprol Xl) 25 mg BID PO Last administered on 08/18/18 20:26; Admin Dose 25 MG; Start 07/29/18 at 09:00 Polyethyl Glycol/ Propylene Glycol (Systane 0.3-0.4% Eye Drops) 1 drop Q4H PRN BOTH EYES DRY EYES; Start 07/29/18 at 08:00 Albuterol (Ventolin Hfa) 2 puff Q4H RESP THERAPY PRN INH WHEEZING; Start 07/29/18 at 09:00 Miscellaneous Information 1 ea NOTE XX ; Start 07/29/18 at 07:00 Glucose (Glutose) 15 gm Q15M PRN PO DECREASED GLUCOSE; Start 07/29/18 at 07:00 Glucose (Glutose) 22.5 gm Q15M PRN PO DECREASED GLUCOSE; Start 07/29/18 at 07:00 Dextrose (D50w Syringe) 25 ml Q15M PRN IV DECREASED GLUCOSE; Start 07/29/18 at 07:00 Dextrose (D50w Syringe) 50 ml Q15M PRN IV DECREASED GLUCOSE; Start 07/29/18 at 07:00 Glucagon (Glucagen) 1 mg Q15M PRN IM DECREASED GLUCOSE; Start 07/29/18 at 07:00 Glucose (Glutose) 15 gm Q15M PRN BUCCAL DECREASED GLUCOSE; Start 07/29/18 at 07:00 Alprazolam (Xanax) 0.25 mg Q8H PRN PO ANXIETY Last administered on 08/19/18at 00:10; Admin Dose 0.25 MG; Start 07/29/18 at 12:30 Polyethylene Glycol (Miralax) 17 gm DAILY PO Last administered on 08/17/18at 08:44; Admin Dose 17 GM; Start 07/29/18 at 12:30 Docusate Sodium (Colace) 100 mg BID PO Last administered on 08/19/18 20:54; Ad min Dose 100 MG; Start 07/31/18 at 21:00 Magnesium Hydroxide (Milk Of Mag) 30 ml Q12H PRN PO STOMACH UPSET/CRAMPING Last administered on 07/31/18at 21:28; Admin Dose 30 ML; Start 07/31/18 at 20:00 Al Hydrox/Mg Hydrox/Simethicone (Mag-Al Plus) 30 ml Q6H PRN PO GASTROINTESTINAL UPSET Last administered on 08/16/18 23:45; Admin Dose 30 ML; Start 08/03/18 at 17:30 Insulin Glargine (Lantus) 8 units DAILY@2000 SC Last administered on 08/19/18 20:53; Admin Dose 8 UNITS; Start 08/09/18 at 20:00 Albuterol/ Ipratropium (Duoneb) 3 ml Q2H RESP THERAPY PRN HHN sob Last administered on 08/19/18 03:28; Admin Dose 3 ML; Start 08/14/18 at 12:00 Diltiazem HCl (Cardizem Iv) 5 mg Q4 PRN IV HR>70 for Cardiac CTA Last administered on 08/19/18 03:50; Admin Dose 5 MG; Start 08/17/18 at 11:30 Lorazepam (Ativan) 1 mg Q8H PRN IV ANXIETY Last administered on 08/20/18 01:43; Admin Dose 1 MG; Start 08/17/18 at 15:30 Epoetin Glenn-epbx (Retacrit (Non-Esrd)) 20,000 unit TuThSa@1700 SC Last administered on 08/18/18 17:14; Admin Dose 20,000 UNIT; Start 08/18/18 at 17:00 Simethicone (Mylicon) 160 mg Q6H PRN PO DISTENSION/GAS/BLOATING Last administered on 08/18/18 08:49; Admin Dose 160 MG; Start 08/17/18 at 20:00 Propofol 100 ml @ 1.568 mls/ hr Q12H IV Last administered on 08/20/18 03:40; Admin Dose 11.918 MLS/HR; Start 08/19/18 at 09:30 Norepinephrine 250 ml @ 1.875 mls/ hr TITRATE IV Last administered on 08/20/18 08:57; Admin Dose 9.375 MLS/HR; Start 08/19/18 at 10:30 Insulin Aspart (Novolog Insulin Pen) NOVOLOG *MODERATE* ALGORI... Q4 SC Last administered on 08/20/18 05:13; Admin Dose 2 UNIT; Start 08/20/18 at 01:00 Sodium Chloride 1,000 ml @ 50 mls/hr Q20H IV Last administered on 08/20/18 08:51; Admin Dose 50 MLS/HR; Start 08/20/18 at 08:00 Lansoprazole (Prevacid) 30 mg DAILY@06 NGT ; Start 08/21/18 at 06:00 Cefepime HCl 50 ml @ 100 mls/hr Q12H IVPB ; Start 08/20/18 at 18:00 Assessment/Plan Hospital Course (Demo Recall) Assessment 1. Status post cardiopulmonary arrest 2. Encephalopathy possibly toxic metabolic 3. Septic shock 4. Recurrent right pleural effusion probably metastatic in nature 5. Metastatic uterine cancer Plan 1. Continue mechanical ventilation 2. Right Pleurx catheter for recurrent pleural effusion 3. Decrease vasopressors as tolerated 4. Family conference regarding goals of care Critical care time 40 minutes FARHAN VALENTINO MD, [facility] Aug 20, 2018 12:03
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
--- NOTE | 2018-08-20 18:05 | PN ---
Date/Time of Note Date/Time of Note DATE: 08/20/18 TIME: 18:00 Assessment/Plan VTE Prophylaxis Risk score (from Ns)>0 risk: 17 SCD applied (from Ns): No SCD contraindicated: other (per primary) Pharmacological prophylaxis: LMWH Lines/Catheters IV Catheter Type (from Nrsg): Central Line Central line still needed: Yes Urinary Cath still in place: Yes Reason Cath still needed: other (indicate) (coma) Assessment/Plan Assessment/Plan Pt deteriorated and is now intubated in the ICU. Records suggest that a family conference is being arranged. Given the very poor prognosis, I would support a non-aggressive approach focused on comfort care. Result Diagram: 08/20/18 0445 08/20/18 0445 Results 24hrs Laboratory Tests Test 08/19/18 20:49 08/19/18 23:54 08/20/18 00:47 08/20/18 04:45 Bedside Glucose 201 221 H Hemoglobin 10.1 #L 10.0 L White Blood 16.7 H Count Red Blood Count 3.49 #L Hematocrit 30.5 #L Mean Corpuscular 87.4 Volume Mean Corpuscular 28.7 L Hemoglobin Mean Corpuscular 32.8 Hemoglobin Nellie nt Red Cell 16.9 H Distribution Width Platelet Count 689 H Mean Platelet 9.4 Volume Immature 0.900 H Granulocytes % Neutrophils % 84.1 H Lymphocytes % 7.8 L Monocytes % 6.9 Eosinophils % 0.1 Basophils % 0.2 Nucleated Red 0.0 Blood Cells % Immature 0.150 H Granulocytes # Neutrophils # 14.0 H Lymphocytes # 1.3 Monocytes # 1.2 H Eosinophils # 0.0 Basophils # 0.0 Nucleated Red 0.0 Blood Cells # Sodium Level 140 Potassium Level 3.4 L Chloride Level 110 Carbon Dioxide 20 L Level Anion Gap 10 Blood Urea 39 H Nitrogen Creatinine 1.22 H Est Glomerular 44 L Filtrat Rate mL/min Glucose Level 173 Calcium Level 8.3 L Test 08/20/18 05:11 08/20/18 05:36 08/20/18 07:00 08/20/18 09:42 Bedside Glucose 174 126 Lab Scanned BLOOD TRANSFUSI Report ON Blood Gas Blood arterial Specimen Source Arterial Blood 08/20/2018 7:15: Date Drawn 59 AM Arterial Blood 7.502 H pH (Temp corrected) Arterial Blood 24.2 L pCO2 (Temp correct) Arterial Blood 70.9 L pO2 (Temp corrected) Arterial Blood 18.5 L HCO3 Arterial Blood -3.2 L Base Excess Arterial Blood 94.1 L Oxygen Saturatio n Quinten Test ACCEPTAB Arterial Blood Right Radial Gas Puncture Site Arterial 0.3 Blood Carboxyhem oglobin Arterial Blood 0 Methemoglobin Blood Gas A-a O2 114.6 H Differential Oxyhemoglobin 93.8 Percent Blood Gas 37.0 Temperature Blood Gas 16.0 Respiration Rate Blood Gas Actual 20 Respiration Rate Blood Gas VENT - AC Modality FiO2 30.0 Blood Gas Tidal 450.0 Volume Blood Gas Low 5.0 PEEP Setting Blood Gas TM Notified Whom Blood Gas 08/20/2018 7:24: Notified Time 40 AM Test 08/20/18 12:37 08/20/18 16:28 Bedside Glucose 116 172 Subjective 24 Hr Interval Summary Free Text/Dictation Pt had cardiopulmonary deterioration and is in the ICU and is intubated Subjective hx not possible: pt non-verbal Exam/Review of Systems Exam Vitals Vital Signs Date Temp Pulse Resp B/P (MAP) Pulse Ox O2 O2 Flow FiO2 Time Delivery Rate 08/20/18 73 19 100 30 17:03 08/20/18 116/45 16:15 (68) 08/20/18 97.6 Mechanical 16:00 Ventilator 08/19/18 6.0 07:26 Intake and Output 08/19/18 08/19/18 08/20/18 1515:00 23:00 07:00 IntakeIntake Total 1890.146 ml 1007.816 ml 600.219 ml OutputOutput Total 385 ml 230 ml 130 ml BalanceBalance 1505.146 ml 777.816 ml 470.219 ml Constitutional: other (intubated) Head: normocephalic ENMT: intubated Respiratory: diminished breath sounds (R>L) Cardiovascular: regular rate and rhythm Gastrointestinal: soft, non-tender Results Results 24hrs Laboratory Tests Test 08/19/18 20:49 08/19/18 23:54 08/20/18 00:47 08/20/18 04:45 Bedside Glucose 201 221 H Hemoglobin 10.1 #L 10.0 L White Blood 16.7 H Count Red Blood Count 3.49 #L Hematocrit 30.5 #L Mean Corpuscular 87.4 Volume Mean Corpuscular 28.7 L Hemoglobin Mean Corpuscular 32.8 Hemoglobin Nellie nt Red Cell 16.9 H Distribution Width Platelet Count 689 H Mean Platelet 9.4 Volume Immature 0.900 H Granulocytes % Neutrophils % 84.1 H Lymphocytes % 7.8 L Monocytes % 6.9 Eosinophils % 0.1 Basophils % 0.2 Nucleated Red 0.0 Blood Cells % Immature 0.150 H Granulocytes # Neutrophils # 14.0 H Lymphocytes # 1.3 Monocytes # 1.2 H Eosinophils # 0.0 Basophils # 0.0 Nucleated Red 0.0 Blood Cells # Sodium Level 140 Potassium Level 3.4 L Chloride Level 110 Carbon Dioxide 20 L Level Anion Gap 10 Blood Urea 39 H Nitrogen Creatinine 1.22 H Est Glomerular 44 L Filtrat Rate mL/min Glucose Level 173 Calcium Level 8.3 L Test 08/20/18 05:11 08/20/18 05:36 08/20/18 07:00 08/20/18 09:42 Bedside Glucose 174 126 Lab Scanned BLOOD TRANSFUSI Report ON Blood Gas Blood arterial Specimen Source Arterial Blood 08/20/2018 7:15: Date Drawn 59 AM Arterial Blood 7.502 H pH (Temp corrected) Arterial Blood 24.2 L pCO2 (Temp correct) Arterial Blood 70.9 L pO2 (Temp corrected) Arterial Blood 18.5 L HCO3 Arterial Blood -3.2 L Base Excess Arterial Blood 94.1 L Oxygen Saturatio n Quinten Test ACCEPTAB Arterial Blood Right Radial Gas Puncture Site Arterial 0.3 Blood Carboxyhem oglobin Arterial Blood 0 Methemoglobin Blood Gas A-a O2 114.6 H Differential Oxyhemoglobin 93.8 Percent Blood Gas 37.0 Temperature Blood Gas 16.0 Respiration Rate Blood Gas Actual 20 Respiration Rate Blood Gas VENT - AC Modality FiO2 30.0 Blood Gas Tidal 450.0 Volume Blood Gas Low 5.0 PEEP Setting Blood Gas TM Notified Whom Blood Gas 08/20/2018 7:24: Notified Time 40 AM Test 08/20/18 12:37 08/20/18 16:28 Bedside Glucose 116 172 Medications Medication Current Medications IV Flush (NS 3 ml) 3 ml PER PROTOCOL IV Last administered on 08/05/18at 09:07; Admin Dose 3 ML; Start 07/29/18 at 06:30 Ondansetron HCl (Zofran Inj) 4 mg Q6H PRN IV NAUSEA/VOMITING Last administered on 08/18/18 18:34; Admin Dose 4 MG; Start 07/29/18 at 06:30 Acetaminophen/ Hydrocodone Bitart ([place] (5/325)) 1 tab Q6H PRN PO .MOD PAIN 4- 6 Last administered on 08/19/18 03:42; Admin Dose 1 TAB; Start 07/29/18 at 06:30 Enoxaparin Sodium (Lovenox) 30 mg DAILY SC Last administered on 08/20/18 09:3 5; Admin Dose 30 MG; Start 07/29/18 at 09:00 Diagnostic Test (Pha) (Accu-Chek) 1 ea 02 XX Last administered on 08/18/18 02:00; Admin Dose 1 EA; Start 07/30/18 at 02:00 Acetaminophen (Tylenol Tab) 650 mg Q6H PRN PO .PAIN 1-3 OR TEMP Last administered on 08/17/18 05:46; Admin Dose 650 MG; Start 07/29/18 at 07:00 Eye Lubricant (Akwa Oint) 1 applic Q1H PRN BOTH EYES DRY EYES; Start 07/29/18 at 08:00 Aspirin (Halfprin) 81 mg DAILY PO Last administered on 08/20/18 09:32; Admin Dose 81 MG; Start 07/29/18 at 09:00 Atorvastatin Calcium (Lipitor) 20 mg QHS PO Last administered on 08/19/18 20:54; Admin Dose 20 MG; Start 07/29/18 at 21:00 Clopidogrel Bisulfate (plaVIX) 75 mg DAILY PO Last administered on 08/20/18 09:32; Admin Dose 75 MG; Start 07/29/18 at 09:00 Cyanocobalamin (Vitamin B12) 50 mcg DAILY PO Last administered on 08/20/18 09:34; Admin Dose 50 MCG; Start 07/29/18 at 09:00 Levothyroxine Sodium (Synthroid) 50 mcg BEFORE BREAKFAST PO Last administered on 08/20/18 06:01; Admin Dose 50 MCG; Start 07/29/18 at 07:00 Metoprolol Succinate (Toprol Xl) 25 mg BID PO Last administered on 08/18/18 20:26; Admin Dose 25 MG; Start 07/29/18 at 09:00; Status Hold Polyethyl Glycol/ Propylene Glycol (Systane 0.3-0.4% Eye Drops) 1 drop Q4H PRN BOTH EYES DRY EYES; Start 07/29/18 at 08:00 Albuterol (Ventolin Hfa) 2 puff Q4H RESP THERAPY PRN INH WHEEZING; Start 07/29/18 at 09:00 Miscellaneous Information 1 ea NOTE XX ; Start 07/29/18 at 07:00 Glucose (Glutose) 15 gm Q15M PRN PO DECREASED GLUCOSE; Start 07/29/18 at 07:00 Glucose (Glutose) 22.5 gm Q15M PRN PO DECREASED GLUCOSE; Start 07/29/18 at 07:00 Dextrose (D50w Syringe) 25 ml Q15M PRN IV DECREASED GLUCOSE; Start 07/29/18 at 07:00 Dextrose (D50w Syringe) 50 ml Q15M PRN IV DECREASED GLUCOSE; Start 07/29/18 at 07:00 Glucagon (Glucagen) 1 mg Q15M PRN IM DECREASED GLUCOSE; Start 07/29/18 at 07:00 Glucose (Glutose) 15 gm Q15M PRN BUCCAL DECREASED GLUCOSE; Start 07/29/18 at 07:00 Alprazolam (Xanax) 0.25 mg Q8H PRN PO ANXIETY Last administered on 08/19/18at 00:10; Admin Dose 0.25 MG; Start 07/29/18 at 12:30 Polyethylene Glycol (Miralax) 17 gm DAILY PO Last administered on 08/17/18at 08:44; Admin Dose 17 GM; Start 07/29/18 at 12:30 Docusate Sodium (Colace) 100 mg BID PO Last administered on 08/19/18at 20:54; Admin Dose 100 MG; Start 07/31/18 at 21:00 Magnesium Hydroxide (Milk Of Mag) 30 ml Q12H PRN PO STOMACH UPSET/CRAMPING Last administered on 07/31/18at 21:28; Admin Dose 30 ML; Start 07/31/18 at 20:00 Al Hydrox/Mg Hydrox/Simethicone (Mag-Al Plus) 30 ml Q6H PRN PO GASTROINTESTINAL UPSET Last administered on 08/16/18at 23:45; Admin Dose 30 ML; Start 08/03/18 at 17:30 Insulin Glargine (Lantus) 8 units DAILY@2000 SC Last administered on 08/19/18 20:53; Admin Dose 8 UNITS; Start 08/09/18 at 20:00 Albuterol/ Ipratropium (Duoneb) 3 ml Q2H RESP THERAPY PRN HHN sob Last administered on 08/19/18 03:28; Admin Dose 3 ML; Start 08/14/18 at 12:00 Diltiazem HCl (Cardizem Iv) 5 mg Q4 PRN IV HR>70 for Cardiac CTA Last administered on 08/19/18 03:50; Admin Dose 5 MG; Start 08/17/18 at 11:30 Lorazepam (Ativan) 1 mg Q8H PRN IV ANXIETY Last administered on 08/20/18 12:39; Admin Dose 1 MG; Start 08/17/18 at 15:30 Epoetin Glenn-epbx (Retacrit (Non-Esrd)) 20,000 unit TuThSa@1700 SC Last administered on 08/18/18 17:14; Admin Dose 20,000 UNIT; Start 08/18/18 at 17:00 Simethicone (Mylicon) 160 mg Q6H PRN PO DISTENSION/GAS/BLOATING Last administered on 08/18/18 08:49; Admin Dose 160 MG; Start 08/17/18 at 20:00 Propofol 100 ml @ 1.568 mls/ hr Q12H IV Last administered on 08/20/18 12:16; Admin Dose 12.545 MLS/HR; Start 08/19/18 at 09:30 Norepinephrine 250 ml @ 1.875 mls/ hr TITRATE IV Last administered on 08/20/18 08:57; Admin Dose 9.375 MLS/HR; Start 08/19/18 at 10:30 Insulin Aspart (Novolog Insulin Pen) NOVOLOG *MODERATE* ALGORI... Q4 SC Last administered on 08/20/18 17:19; Admin Dose 2 UNIT; Start 08/20/18 at 01:00 Sodium Chloride 1,000 ml @ 50 mls/hr Q20H IV Last administered on 08/20/18 08:51; Admin Dose 50 MLS/HR; Start 08/20/18 at 08:00 Lansoprazole (Prevacid) 30 mg DAILY@06 NGT ; Start 08/21/18 at 06:00 Cefepime HCl 50 ml @ 100 mls/hr Q12H IVPB Last administered on 08/20/18at 17:15; Admin Dose 100 MLS/HR; Start 08/20/18 at 18:00 TUAN BARRON MD Aug 20, 2018 18:05
[2018-08-20] MEDS: ATORVASTATIN 20 MG TAB PO SCH (20:33)
[2018-08-20] MEDS: INSULIN GLARGINE [LANTus] (100 UNITS/ML) SYG SC SCH (20:36)
[2018-08-21] VITALS (100 sets, daily range): BP systolic 75–155; BP diastolic 45–88; PULSE 60–97; RESP 16–30
[2018-08-21] MEDS ORDERED: ATROPINE 1 MG/10 ML SYRINGE ONE
[2018-08-21] MEDS ORDERED: EPINEPHrine 0.1 MG/ML SYG ONE
[2018-08-21] MEDS: INSULIN ASPART [NOVOLOG] 3 ML PEN SC SCH ×6 (01:38→20:34)
[2018-08-21] MEDS: ACCU-CHEK XX SCH (01:40)
[2018-08-21] MEDS: PROPOFOL 100 ML IV SCH ×3 (03:55→23:37)
[2018-08-21] MEDS: SOD CHLORIDE 0.9% 1,000 ML IV SCH (03:56)
[2018-08-21] MEDS: LANSOPRAZOLE 30 MG CAP NGT SCH (05:30)
[2018-08-21] MEDS: CEFEPIME 2GM/50 ML (PMX) 50 ML IVPB SCH ×2 (05:33→16:41)
[2018-08-21] MEDS: LEVOTHYROXINE 50 MCG TAB PO SCH (06:46)
[2018-08-21] MEDS: POLYETHYLENE GLYCOL 17 GM PACKET PO SCH (07:42)
[2018-08-21] MEDS: DOCUSATE SODIUM 100 MG CAP PO SCH ×2 (07:42→20:23)
--- NOTE | 2018-08-21 08:12 | PN ---
DATE: 08/21/2018 SUBJECTIVE: The patient remains critically ill on pressor support, IV fluids. Urinary output has be en adequate. No other acute events noted. OBJECTIVE: VITAL SIGNS: Blood pressure is 97/52, pulse 67, respirations 23. HEENT: Head is normocephalic. NECK: Supple. HEART: Regular rate. LUNGS: Show diminished breath sounds at the base. ABDOMEN: Soft, nontender to palpation without rebound or guarding. EXTREMITIES: Negative for clubbing, cyanosis. Trace edema. DERMATOLOGIC: No rashes. MUSCULOSKELETAL: No joint effusion. NEUROLOGIC: No change in exam. MEDICATIONS: Reviewed. LABORATORY DATA: Reviewed. IMAGING STUDIES: Reviewed. ASSESSMENT AND PLAN: 1. Nonoliguric acute kidney injury with previous baseline creatinine of 1.2 to 1.4 mg/dL. Etiology of acute kidney injury is secondary to hemodynamics. Renal function is stable, slowly improving. Co ntinue current treatment plan, renally dose all medications and avoid nephrotoxins. 2. Anemia. Continue to monitor hemoglobin and hematocrit levels. 3. Mineral bone disorder, monitor calcium and phosphorus levels. 4. Hypokalemia, improved. Continue to monitor. 5. Cardiac arrest. Etiology is likely respiratory. Continue to monitor. 6. Ventilator-dependent respiratory failure. Vent settings and ABG was reviewed. Continue to monit or. Followup with pulmonary. 7. Pleural effusion. The patient is pending possible PleurX placement. 8. Coronary artery disease with positive stress test. Continue current medical management. Follow up with Cardiology. 9. Diabetes. Continue current insulin regimen. 10. Hypothyroidism. Continue Synthroid. 11. Respiratory alkalosis with compensation. We will continue to monitor. 12. Liver mass consistent with metastatic carcinosarcoma. Continue to monitor. Follow up with onco logy. 13. Lower extremity edema, etiology is multifactorial secondary to venous insufficiency, questionabl e diastolic heart failure. Continue to monitor closely. Give intermittent diuretic therapy when pos sible. 14. Shock, etiology is presumed septic. Continue current medical management. Continue pressor supp ort. Continue IV fluids and antibiotic therapy. Followup cultures. 15. Acute encephalopathy, etiology is toxic metabolic. Please note I spent over 30 minutes of critical care time with this patient. Dictated By: JACOB BROCK DO NR/NTS Conf#: [id number] DID#: [id number] CC: MARY VILLATORO MD; TAN MAIER MD;*[facility]*
--- NOTE | 2018-08-21 08:27 | PN ---
Date/Time of Note Date/Time of Note DATE: 08/21/18 TIME: 08:25 Assessment/Plan VTE Prophylaxis Risk score (from Ns)>0 risk: 16 SCD applied (from Ns): No SCD contraindicated: other Pharmacological prophylaxis: LMWH Lines/Catheters IV Catheter Type (from Nrsg): Central Line Central line still needed: Yes Urinary Cath still in place: Yes Reason Cath still needed: terminal illness/intractable pain Assessment/Plan Hospital Course SUBJECTIVE: Remains intubated. On propofol. On Levophed. OBJECTIVE: Physical Exam General: Adequately build 68 year-old female lying in bed in no apparent distress. HEENT: Normocephalic, atraumatic. Eyes: Anicteric sclerae, conjunctivae clear. ENT: Nasal septum midline, oral mucosa is dry. Neck supple, no JVD noticed. Respiratory: Bilaterally diminished breath sounds. ETT to mechanical ventilator. Cardiovascular: S1, S2 heard. Regular rate and rhythm. Abdomen: Soft, nontender, and nondistended. Bowel sounds positive in all 4 quadrants. Genitourinary: Deferred. Extremities: No cyanosis, no clubbing. Bilateral lower extremity 1+ edema. Neurologic: The patient is sedated. Labs & Vitals per chart ASSESSMENT & PLAN This is a 68-year-old female with past medical history of diabetes mellitus, peripheral artery disease, stroke, dyslipidemia, and hypothyroidism. The patient presented to the emergency room with multiple complaints including bilateral lower extremity edema, unintentional weight loss, etc. The patient was admitted to inpatient setting for further treatment and evaluation. The patient underwent a CT scan of the abdomen and pelvis on 08/01/2018 that showed abnormal enlargement of the uterus with significant thickening of the endometrial stripe with pelvis MRI showing irregular 9 cm exophytic posterior uterine mass. 1. Metastatic carcinosarcoma of uterus. Being followed by oncology. Awaiting genomic studies to determine mind responsiveness of this tumor to PD-L1 inhibitors. 2. Malignant pleural effusion. Status post right-sided thoracentesis on 08/15/2018. 3. Positive Lexiscan myocardial perfusion study. Study positive for partially reversible perfusion defect in the distal anterior wall. Being followed by cardiology. Continue aspirin plus Plavix. 4. Status post cardiopulmonary arrest on 08/19/2018. Etiology could be secondary to underlying hypoxia versus others. Intubated and on pressors. Poor prognosis. 5. Peripheral artery disease. Being followed by vascular surgery. Optimize medical management. Continue aspirin plus Plavix. Continue statins. 6. Diabetes mellitus. Hemoglobin A1c 6.3. Continue sliding scale insulin along with basal. 7. Hypothyroidism. Continue Synthroid. 8. Acute kidney injury. Being followed by nephrology. Use nephrotoxic drugs with caution. 9. Normocytic anemia. Monitor H&H closely. Continue iron supplements. 10. Acute respiratory failure. Hypoxic. Ventilator management as per pulmonology. 11. Shock. Continue IV pressors for blood pressure support. 12. Fluids, electrolytes, and nutrition. NPO. 13. DVT prophylaxis. Subcutaneous Lovenox (renally dosed). 14. Plan. Continue current management. Poor prognosis. As per the conversation with the patient's son Rk on 08/20/2018, he wants the patient to remain a full code. The patient was seen in collaboration with Dr. Hancock. Critical care time: 35 mins. Result Diagram: 08/21/18 0430 08/21/18 0430 Results 24hrs Laboratory Tests Test 08/20/18 09:42 08/20/18 12:37 08/20/18 16:28 08/20/18 20:33 Bedside Glucose 126 116 172 183 Test 08/21/18 01:00 08/21/18 04:30 08/21/18 04:50 Bedside Glucose 156 129 White Blood Count 16.3 H Red Blood Count 3.50 L Hemoglobin 10.2 L Hematocrit 30.3 L Mean Corpuscular 86.6 Volume Mean Corpuscular 29.1 Hemoglobin Mean Corpuscular 33.7 Hemoglobin Concent Red Cell 17.3 H Distribution Width Platelet Count 659 H Mean Platelet Volume 9.7 Immature 0.800 H Granulocytes % Neutrophils % 82.8 H Lymphocytes % 8.3 L Monocytes % 6.7 Eosinophils % 1.3 Basophils % 0.1 Nucleated Red Blood 0.2 H Cells % Immature 0.130 H Granulocytes # Neutrophils # 13.5 H Lymphocytes # 1.4 Monocytes # 1.1 H Eosinophils # 0.2 Basophils # 0.0 Nucleated Red Blood 0.0 Cells # Sodium Level 139 Potassium Level 3.6 Chloride Level 113 H Carbon Dioxide Level 19 L Anion Gap 7 Blood Urea Nitrogen 40 H Creatinine 1.12 H Est Glomerular 48 L Filtrat Rate mL/min Glucose Level 135 Calcium Level 8.1 L Phosphorus Level 2.9 Magnesium Level 2.4 Exam/Review of Systems Exam Vitals Vital Signs Date Temp Pulse Resp B/P (MAP) Pulse Ox O2 O2 Flow FiO2 Time Delivery Rate 08/21/18 81 141/63 99 08:15 (89) 08/21/18 30 08:00 08/21/18 98.2 23 Mechanical 08:00 Ventilator 08/19/18 6.0 07:26 Intake and Output 08/20/18 08/20/18 08/21/18 1515:00 23:00 07:00 IntakeIntake Total 654.293 ml 910.015 ml 599.066 ml OutputOutput Total 80 ml 145 ml 130 ml BalanceBalance 574.293 ml 765.015 ml 469.066 ml Results Results 24hrs Laboratory Tests Test 08/20/18 09:42 08/20/18 12:37 08/20/18 16:28 08/20/18 20:33 Bedside Glucose 126 116 172 183 Test 08/21/18 01:00 08/21/18 04:30 08/21/18 04:50 Bedside Glucose 156 129 White Blood Count 16.3 H Red Blood Count 3.50 L Hemoglobin 10.2 L Hematocrit 30.3 L Mean Corpuscular 86.6 Volume Mean Corpuscular 29.1 Hemoglobin Mean Corpuscular 33.7 Hemoglobin Concent Red Cell 17.3 H Distribution Width Platelet Count 659 H Mean Platelet Volume 9.7 Immature 0.800 H Granulocytes % Neutrophils % 82.8 H Lymphocytes % 8.3 L Monocytes % 6.7 Eosinophils % 1.3 Basophils % 0.1 Nucleated Red Blood 0.2 H Cells % Immature 0.130 H Granulocytes # Neutrophils # 13.5 H Lymphocytes # 1.4 Monocytes # 1.1 H Eosinophils # 0.2 Basophils # 0.0 Nucleated Red Blood 0.0 Cells # Sodium Level 139 Potassium Level 3.6 Chloride Level 113 H Carbon Dioxide Level 19 L Anion Gap 7 Blood Urea Nitrogen 40 H Creatinine 1.12 H Est Glomerular 48 L Filtrat Rate mL/min Glucose Level 135 Calcium Level 8.1 L Phosphorus Level 2.9 Magnesium Level 2.4 Medications Medication Current Medications IV Flush (NS 3 ml) 3 ml PER PROTOCOL IV Last administered on 08/05/18at 09:07; Admin Dose 3 ML; Start 07/29/18 at 06:30 Ondansetron HCl (Zofran Inj) 4 mg Q6H PRN IV NAUSEA/VOMITING Last administered on 08/18/18 18:34; Admin Dose 4 MG; Start 07/29/18 at 06:30 Acetaminophen/ Hydrocodone Bitart ([place] (5/325)) 1 tab Q6H PRN PO .MOD PAIN 4- 6 Last administered on 08/19/18 03:42; Admin Dose 1 TAB; Start 07/29/18 at 06:30 Enoxaparin Sodium (Lovenox) 30 mg DAILY SC Last administered on 08/20/18 09:35; Admin Dose 30 MG; Start 07/29/18 at 09:00 Diagnostic Test (Pha) (Accu-Chek) 1 ea 02 XX Last administered on 08/18/18 02:00; Admin Dose 1 EA; Start 07/30/18 at 02:00 Acetaminophen (Tylenol Tab) 650 mg Q6H PRN PO .PAIN 1-3 OR TEMP Last administered on 08/17/18 05:46; Admin Dose 650 MG; Start 07/29/18 at 07:00 Eye Lubricant (Akwa Oint) 1 applic Q1H PRN BOTH EYES DRY EYES; Start 07/29/18 at 08:00 Aspirin (Halfprin) 81 mg DAILY PO Last administered on 08/20/18 09:32; Admin Dose 81 MG; Start 07/29/18 at 09:00 Atorvastatin Calcium (Lipitor) 20 mg QHS PO Last administered on 08/20/18 20:33; Admin Dose 20 MG; Start 07/29/18 at 21:00 Clopidogrel Bisulfate (plaVIX) 75 mg DAILY PO Last administered on 08/20/18 09:32; Admin Dose 75 MG; Start 07/29/18 at 09:00 Cyanocobalamin (Vitamin B12) 50 mcg DAILY PO Last administered on 08/20/18 09:34; Admin Dose 50 MCG; Start 07/29/18 at 09:00 Levothyroxine Sodium (Synthroid) 50 mcg BEFORE BREAKFAST PO Last administered on 08/20/18 06:01; Admin Dose 50 MCG; Start 07/29/18 at 07:00 Metoprolol Succinate (Toprol Xl) 25 mg BID PO Last administered on 08/18/18 20:26; Admin Dose 25 MG; Start 07/29/18 at 09:00; Status Hold Polyethyl Glycol/ Propylene Glycol (Systane 0.3-0.4% Eye Drops) 1 drop Q4H PRN BOTH EYES DRY EYES; Start 07/29/18 at 08:00 Albuterol (Ventolin Hfa) 2 puff Q4H RESP THERAPY PRN INH WHEEZING; Start 07/29/18 at 09:00 Miscellaneous Information 1 ea NOTE XX ; Start 07/29/18 at 07:00 Glucose (Glutose) 15 gm Q15M PRN PO DECREASED GLUCOSE; Start 07/29/18 at 07:00 Glucose (Glutose) 22.5 gm Q15M PRN PO DECREASED GLUCOSE; Start 07/29/18 at 07:00 Dextrose (D50w Syringe) 25 ml Q15M PRN IV DECREASED GLUCOSE; Start 07/29/18 at 07:00 Dextrose (D50w Syringe) 50 ml Q15M PRN IV DECREASED GLUCOSE; Start 07/29/18 at 07:00 Glucagon (Glucagen) 1 mg Q15M PRN IM DECREASED GLUCOSE; Start 07/29/18 at 07:00 Glucose (Glutose) 15 gm Q15M PRN BUCCAL DECREASED GLUCOSE; Start 07/29/18 at 07:00 Alprazolam (Xanax) 0.25 mg Q8H PRN PO ANXIETY Last administered on 08/19/18at 00:10; Admin Dose 0.25 MG; Start 07/29/18 at 12:30 Polyethylene Glycol (Miralax) 17 gm DAILY PO Last administered on 08/17/18at 08:44; Admin Dose 17 GM; Start 07/29/18 at 12:30 Docusate Sodium (Colace) 100 mg BID PO Last administered on 08/20/18at 20:33; Admin Dose 100 MG; Start 07/31/18 at 21:00 Magnesium Hydroxide (Milk Of Mag) 30 ml Q12H PRN PO STOMACH UPSET/CRAMPING Last administered on 07/31/18at 21:28; Admin Dose 30 ML; Start 07/31/18 at 20:00 Al Hydrox/Mg Hydrox/Simethicone (Mag-Al Plus) 30 ml Q6H PRN PO GASTROINTESTINAL UPSET Last administered on 08/16/18at 23:45; Admin Dose 30 ML; Start 08/03/18 at 17:30 Insulin Glargine (Lantus) 8 units DAILY@2000 SC Last administered on 08/20/18 20:36; Admin Dose 8 UNITS; Start 08/09/18 at 20:00 Albuterol/ Ipratropium (Duoneb) 3 ml Q2H RESP THERAPY PRN HHN sob Last administered on 08/19/18 03:28; Admin Dose 3 ML; Start 08/14/18 at 12:00 Diltiazem HCl (Cardizem Iv) 5 mg Q4 PRN IV HR>70 for Cardiac CTA Last administered on 08/19/18 03:50; Admin Dose 5 MG; Start 08/17/18 at 11:30 Lorazepam (Ativan) 1 mg Q8H PRN IV ANXIETY Last administered on 08/20/18 12:39; Admin Dose 1 MG; Start 08/17/18 at 15:30 Epoetin Glenn-epbx (Retacrit (Non-Esrd)) 20,000 unit TuThSa@1700 SC Last administered on 08/18/18 17:14; Admin Dose 20,000 UNIT; Start 08/18/18 at 17:00 Simethicone (Mylicon) 160 mg Q6H PRN PO DISTENSION/GAS/BLOATING Last administered on 08/18/18 08:49; Admin Dose 160 MG; Start 08/17/18 at 20:00 Propofol 100 ml @ 1.568 mls/ hr Q12H IV Last administered on 08/21/18 03:55; Admin Dose 10.977 MLS/HR; Start 08/19/18 at 09:30 Norepinephrine 250 ml @ 1.875 mls/ hr TITRATE IV Last administered on 08/20/18 08:57; Admin Dose 9.375 MLS/HR; Start 08/19/18 at 10:30 Insulin Aspart (Novolog Insulin Pen) NOVOLOG *MODERATE* ALGORI... Q4 SC Last administered on 08/21/18 01:38; Admin Dose 2 UNIT; Start 08/20/18 at 01:00 Sodium Chloride 1,000 ml @ 50 mls/hr Q20H IV Last administered on 08/21/18 03:56; Admin Dose 50 MLS/HR; Start 08/20/18 at 08:00 Lansoprazole (Prevacid) 30 mg DAILY@06 NGT ; Start 08/21/18 at 06:00 Cefepime HCl 50 ml @ 100 mls/hr Q12H IVPB Last administered on 08/21/18at 05:33; Admin Dose 100 MLS/HR; Start 08/20/18 at 18:00 SANDI MURDOCK NP Aug 21, 2018 08:27
[2018-08-21] MEDS: CLOPIDOGREL 75 MG TAB PO SCH (08:46)
[2018-08-21] MEDS: ASPIRIN (EC) 81 MG TAB PO SCH (08:46)
[2018-08-21] MEDS: CYANOCOBALAMIN 100 MCG TAB PO SCH (08:46)
[2018-08-21] MEDS: ENOXAPARIN 30 MG/0.3 ML SYG SC SCH (08:50)
--- NOTE | 2018-08-21 11:30 | CONS ---
Consult Date/Type/Reason Admit Date/Time Jul 29, 2018 at 06:16 Initial Consult Date 08/15/18 Type of Consult Pulmonary Requesting Provider: SANDI MURDOCK NP Date/Time of Note DATE: 08/21/18 TIME: 11:30 Subjective Patient remained stable no new events continues mechanical ventilation pending Pleurx catheter this morning. Objective Vital Signs Date Temp Pulse Resp B/P (MAP) Pulse Ox O2 O2 Flow FiO2 Time Delivery Rate 08/21/18 100 18 64 30 11:07 08/21/18 130/64 11:00 (86) 08/21/18 98.2 Mechanical 08:00 Ventilator 08/19/18 6.0 07:26 Intake and Output 08/20/18 08/20/18 08/21/18 1515:00 23:00 07:00 IntakeIntake Total 654.293 ml 910.015 ml 599.066 ml OutputOutput Total 80 ml 145 ml 130 ml BalanceBalance 574.293 ml 765.015 ml 469.066 ml Exam GENERAL: Elderly appearing lady orally intubated on mechanical ventilation VITAL SIGNS: per chart NECK: Supple. No JVD or lymphadenopathy. CARDIAC EXAM: S1, S2. No added sounds or murmurs. CHEST: Diminished air entry right side greater than left ABDOMEN: Soft, nontender. No guarding or rebound. EXTREMITIES: No cyanosis, clubbing or edema. NEUROLOGIC: Generalized weakness. No focal deficits. Vent Setting Ventilator Support Mode: AC Fraction of Inspired Oxygen pe: 30 Positive End Expiratory Pressu: 5.0 Results/Medications Result Diagram: 08/21/18 0430 08/21/18 0430 Results 24 hrs Laboratory Tests Test 08/20/18 12:37 08/20/18 16:28 08/20/18 20:33 08/21/18 01:00 Bedside Glucose 116 172 183 156 Test 08/21/18 04:30 08/21/18 04:50 08/21/18 09:12 White Blood Count 16.3 H Red Blood Count 3.50 L Hemoglobin 10.2 L Hematocrit 30.3 L Mean Corpuscular 86.6 Volume Mean Corpuscular 29.1 Hemoglobin Mean Corpuscular 33.7 Hemoglobin Concent Red Cell 17.3 H Distribution Width Platelet Count 659 H Mean Platelet Volume 9.7 Immature 0.800 H Granulocytes % Neutrophils % 82.8 H Lymphocytes % 8.3 L Monocytes % 6.7 Eosinophils % 1.3 Basophils % 0.1 Nucleated Red Blood 0.2 H Cells % Immature 0.130 H Granulocytes # Neutrophils # 13.5 H Lymphocytes # 1.4 Monocytes # 1.1 H Eosinophils # 0.2 Basophils # 0.0 Nucleated Red Blood 0.0 Cells # Sodium Level 139 Potassium Level 3.6 Chloride Level 113 H Carbon Dioxide Level 19 L Anion Gap 7 Blood Urea Nitrogen 40 H Creatinine 1.12 H Est Glomerular 48 L Filtrat Rate mL/min Glucose Level 135 Calcium Level 8.1 L Phosphorus Level 2.9 Magnesium Level 2.4 Bedside Glucose 129 147 Medications Current Medications IV Flush (NS 3 ml) 3 ml PER PROTOCOL IV Last administered on 08/05/18 09:07; Admin Dose 3 ML; Start 07/29/18 at 06:30 Ondansetron HCl (Zofran Inj) 4 mg Q6H PRN IV NAUSEA/VOMITING Last administered on 08/18/18 18:34; Admin Dose 4 MG; Start 07/29/18 at 06:30 Acetaminophen/ Hydrocodone Bitart ([place] (5/325)) 1 tab Q6H PRN PO .MOD PAIN 4- 6 Last administered on 08/19/18 03:42; Admin Dose 1 TAB; Start 07/29/18 at 06:30 Enoxaparin Sodium (Lovenox) 30 mg DAILY SC Last administered on 08/21/18 08:50; Admin Dose 30 MG; Start 07/29/18 at 09:00 Diagnostic Test (Pha) (Accu-Chek) 1 ea 02 XX Last administered on 08/18/18at 02:00; Admin Dose 1 EA; Start 07/30/18 at 02:00 Acetaminophen (Tylenol Tab) 650 mg Q6H PRN PO .PAIN 1-3 OR TEMP Last administered on 08/17/18 05:46; Admin Dose 650 MG; Start 07/29/18 at 07:00 Eye Lubricant (Akwa Oint) 1 applic Q1H PRN BOTH EYES DRY EYES; Start 07/29/18 at 08:00 Aspirin (Halfprin) 81 mg DAILY PO Last administered on 08/21/18 08:46; Admin Dose 81 MG; Start 07/29/18 at 09:00 Atorvastatin Calcium (Lipitor) 20 mg QHS PO Last administered on 08/20/18at 20:33; Admin Dose 20 MG; Start 07/29/18 at 21:00 Clopidogrel Bisulfate (plaVIX) 75 mg DAILY PO Last administered on 08/21/18 08:46; Admin Dose 75 MG; Start 07/29/18 at 09:00 Cyanocobalamin (Vitamin B12) 50 mcg DAILY PO Last administered on 08/21/18 08:46; Admin Dose 50 MCG; Start 07/29/18 at 09:00 Levothyroxine Sodium (Synthroid) 50 mcg BEFORE BREAKFAST PO Last administered on 08/20/18 06:01; Admin Dose 50 MCG; Start 07/29/18 at 07:00 Metoprolol Succinate (Toprol Xl) 25 mg BID PO Last administered on 08/18/18 20:26; Admin Dose 25 MG; Start 07/29/18 at 09:00; Status Hold Polyethyl Glycol/ Propylene Glycol (Systane 0.3-0.4% Eye Drops) 1 drop Q4H PRN BOTH EYES DRY EYES; Start 07/29/18 at 08:00 Albuterol (Ventolin Hfa) 2 puff Q4H RESP THERAPY PRN INH WHEEZING; Start 07/29/18 at 09:00 Miscellaneous Information 1 ea NOTE XX ; Start 07/29/18 at 07:00 Glucose (Glutose) 15 gm Q15M PRN PO DECREASED GLUCOSE; Start 07/29/18 at 07:00 Glucose (Glutose) 22.5 gm Q15M PRN PO DECREASED GLUCOSE; Start 07/29/18 at 07:00 Dextrose (D50w Syringe) 25 ml Q15M PRN IV DECREASED GLUCOSE; Start 07/29/18 at 07:00 Dextrose (D50w Syringe) 50 ml Q15M PRN IV DECREASED GLUCOSE; Start 07/29/18 at 07:00 Glucagon (Glucagen) 1 mg Q15M PRN IM DECREASED GLUCOSE; Start 07/29/18 at 07:00 Glucose (Glutose) 15 gm Q15M PRN BUCCAL DECREASED GLUCOSE; Start 07/29/18 at 07:00 Alprazolam (Xanax) 0.25 mg Q8H PRN PO ANXIETY Last administered on 08/19/18at 00:10; Admin Dose 0.25 MG; Start 07/29/18 at 12:30 Polyethylene Glycol (Miralax) 17 gm DAILY PO Last administered on 08/17/18 08:44; Admin Dose 17 GM; Start 07/29/18 at 12:30 Docusate Sodium (Colace) 100 mg BID PO Last administered on 08/20/18 20:33; Admin Dose 100 MG; Start 07/31/18 at 21:00 Magnesium Hydroxide (Milk Of Mag) 30 ml Q12H PRN PO STOMACH UPSET/CRAMPING Last administered on 07/31/18 21:28; Admin Dose 30 ML; Start 07/31/18 at 20:00 Al Hydrox/Mg Hydrox/Simethicone (Mag-Al Plus) 30 ml Q6H PRN PO GASTROINTESTINAL UPSET Last administered on 08/16/18 23:45; Admin Dose 30 ML; Start 08/03/18 at 17:30 Insulin Glargine (Lantus) 8 units DAILY@2000 SC Last administered on 08/20/18 20:36; Admin Dose 8 UNITS; Start 08/09/18 at 20:00 Albuterol/ Ipratropium (Duoneb) 3 ml Q2H RESP THERAPY PRN HHN sob Last administered on 08/19/18 03:28; Admin Dose 3 ML; Start 08/14/18 at 12:00 Diltiazem HCl (Cardizem Iv) 5 mg Q4 PRN IV HR>70 for Cardiac CTA Last administered on 08/19/18 03:50; Admin Dose 5 MG; Start 08/17/18 at 11:30 Lorazepam (Ativan) 1 mg Q8H PRN IV ANXIETY Last administered on 08/20/18 12:39; Admin Dose 1 MG; Start 08/17/18 at 15:30 Epoetin Glenn-epbx (Retacrit (Non-Esrd)) 20,000 unit TuThSa@1700 SC Last administered on 08/18/18 17:14; Admin Dose 20,000 UNIT; Start 08/18/18 at 17:00 Simethicone (Mylicon) 160 mg Q6H PRN PO DISTENSION/GAS/BLOATING Last administered on 08/18/18 08:49; Admin Dose 160 MG; Start 08/17/18 at 20:00 Propofol 100 ml @ 1.568 mls/ hr Q12H IV Last administered on 08/21/18 08:44; Admin Dose 0.627 MLS/HR; Start 08/19/18 at 09:30 Norepinephrine 250 ml @ 1.875 mls/ hr TITRATE IV Last administered on 08/20/18 08:57; Admin Dose 9.375 MLS/HR; Start 08/19/18 at 10:30 Insulin Aspart (Novolog Insulin Pen) NOVOLOG *MODERATE* ALGORI... Q4 SC Last administered on 08/21/18 01:38; Admin Dose 2 UNIT; Start 08/20/18 at 01:00 Sodium Chloride 1,000 ml @ 50 mls/hr Q20H IV Last administered on 08/21/18 03:56; Admin Dose 50 MLS/HR; Start 08/20/18 at 08:00 Lansoprazole (Prevacid) 30 mg DAILY@06 NGT ; Start 08/21/18 at 06:00 Cefepime HCl 50 ml @ 100 mls/hr Q12H IVPB Last administered on 08/21/18at 05:33; Admin Dose 100 MLS/HR; Start 08/20/18 at 18:00 Assessment/Plan Hospital Course (Demo Recall) Assessment 1. Status post cardiopulmonary arrest 2. Encephalopathy possibly toxic metabolic 3. Septic shock 4. Recurrent right pleural effusion probably metastatic in nature 5. Metastatic uterine cancer Plan 1. Continue mechanical ventilation 2. Right Pleurx catheter for recurrent pleural effusion scheduled for today. 3. Decrease vasopressors as tolerated 4. Family conference regarding goals of care Critical care time 40 minutes FARHAN VALENTINO MD, [facility] Aug 21, 2018 11:30
--- NOTE | 2018-08-21 12:17 | CONS ---
Consult Date/Type/Reason Admit Date/Time Jul 29, 2018 at 06:16 Initial Consult Date 08/10/18 Requesting Provider: SANDI MURDOCK NP Date/Time of Note DATE: 08/21/18 TIME: 12:11 Subjective NO acute change - still intubated, pending plerux today - pt still on low dose of levo gtt - hope to wean off soon ROS: No fever, no chills, no nausea, no vomiting, no diarrhea/constipation - per nurse, not able to titrate levo gtt off yet Objective Vitals Vital Signs Date Temp Pulse Resp B/P (MAP) Pulse Ox O2 O2 Flow FiO2 Time Delivery Rate 08/21/18 100 18 64 30 11:07 08/21/18 130/64 11:00 (86) 08/21/18 98.2 Mechanical 08:00 Ventilator 08/19/18 6.0 07:26 Intake and Output 08/20/18 08/20/18 08/21/18 1515:00 23:00 07:00 IntakeIntake Total 654.293 ml 910.015 ml 599.066 ml OutputOutput Total 80 ml 145 ml 130 ml BalanceBalance 574.293 ml 765.015 ml 469.066 ml Exam General: WN/WD/NAD, AOx 0 HEENT: Unicetric/atraumatic/EOMI (does not follow commands) NECK: JVD elevated, no thyromegaly - intubated Lymph: no lymphadenopathy HEART: regular with no S3, II/ systolic murmur at apex LUNGS: Coarse sounds ABD: soft, NT, ND, +BS : Intact Neuro: non focal SKIN: chronic changes EXT: trace edema Results/Medications Result Diagram: 08/21/18 0430 08/21/18 0430 Results 24 hrs Laboratory Tests Test 08/20/18 12:37 08/20/18 16:28 08/20/18 20:33 08/21/18 01:00 Bedside Glucose 116 172 183 156 Test 08/21/18 04:30 08/21/18 04:50 08/21/18 09:12 White Blood Count 16.3 H Red Blood Count 3.50 L Hemoglobin 10.2 L Hematocrit 30.3 L Mean Corpuscular 86.6 Volume Mean Corpuscular 29.1 Hemoglobin Mean Corpuscular 33.7 Hemoglobin Concent Red Cell 17.3 H Distribution Width Platelet Count 659 H Mean Platelet Volume 9.7 Immature 0.800 H Granulocytes % Neutrophils % 82.8 H Lymphocytes % 8.3 L Monocytes % 6.7 Eosinophils % 1.3 Basophils % 0.1 Nucleated Red Blood 0.2 H Cells % Immature 0.130 H Granulocytes # Neutrophils # 13.5 H Lymphocytes # 1.4 Monocytes # 1.1 H Eosinophils # 0.2 Basophils # 0.0 Nucleated Red Blood 0.0 Cells # Sodium Level 139 Potassium Level 3.6 Chloride Level 113 H Carbon Dioxide Level 19 L Anion Gap 7 Blood Urea Nitrogen 40 H Creatinine 1.12 H Est Glomerular 48 L Filtrat Rate mL/min Glucose Level 135 Calcium Level 8.1 L Phosphorus Level 2.9 Magnesium Level 2.4 Bedside Glucose 129 147 Home Meds Active Scripts Magnesium Oxide* (Mag-Oxide*) 400 Mg Tablet, 400 MG PO BID for 3 Days, #10 TAB Prov:FERNANDO YANCEY MD 07/08/18 Lactobacillus Rhamnosus GG (Culturelle) 1 Each Capsule, 1 CAP PO BID for 14 Days, #30 CAP Prov:FERNANDO YANCEY MD 07/08/18 Acetaminophen* (Tylenol*) 325 Mg Tablet, 650 MG PO Q6H PRN for .PAIN 1-3 OR TEMP for 10 Days, #10 TAB Prov:FERNANDO YANCEY MD 07/08/18 Lisinopril* (Lisinopril*) 5 Mg Tablet, 2.5 MG PO DAILY for 15 Days, #15 TAB Prov:FERNANDO YANCEY MD 07/08/18 Sulfamethoxazole/Trimethoprim (Sulfamethoxazole-Tmp Ds Tablet) 1 Each Tablet, 1 TAB PO BID for 5 Days, #10 TAB Prov:FERNANDO YANCEY MD 07/08/18 Reported Medications Sodium Bicarbonate* (Sodium Bicarbonate*) 650 Mg Tablet, 650 MG PO TID, TAB 07/05/18 Propylene Glycol-Peg 400 (Systane 0.3-0.4% Eye Drops) 0.3-0.4 % - 30 Ml Drops, 1 DROP BOTH EYES Q4H PRN for DRY EYES, #1 BOTTLE 07/05/18 Pantoprazole* (Protonix*) 40 Mg Tablet.dr, 40 MG PO QAM, TAB 07/05/18 Ondansetron Hcl* (Zofran*) 8 Mg Tablet, 8 MG PO Q6H PRN for NAUSEA AND OR VOMITING, TAB 07/05/18 Metoprolol Succinate* (Toprol XL*) 25 Mg Tab.sr.24h, 25 MG PO BID, #30 TAB 07/05/18 Metformin* (Glucophage*) 500 Mg Tab, 500 MG PO WITH BREAKFAST, #30 TAB 07/05/18 Levothyroxine Sodium* (Synthroid*) 50 Mcg Tablet, 50 MCG PO BEFORE BREAKFAST, #30 TAB 07/05/18 Hydrocodone/Acetaminophen (Whitney 5-325 Tablet) 1 Each Tablet, 1 EACH PO Q6 PRN for PAIN, TAB 07/05/18 [place]-3 Fatty Acids/Fish Oil (Fish Oil 1,000 mg Capsule) 1 Each Capsule, 1 EACH PO DAILY, CAP 07/05/18 Cyanocobalamin* (Vitamin B-12*) 50 Mcg Tablet, 50 MCG PO DAILY, TAB 07/05/18 Clopidogrel Bisulfate (Clopidogrel) 75 Mg Tablet, 75 MG PO DAILY, #30 TAB 07/05/18 Atorvastatin Calcium* (Atorvastatin Calcium*) 20 Mg Tablet, 20 MG PO QHS, #30 TAB 07/05/18 Aspirin* (Aspirin* EC) 81 Mg Tablet.dr, 81 MG PO DAILY, TAB 07/05/18 Artificial Tears* (Akwa Oint*) 3.5 Gm Oint, 1 APPLIC BOTH EYES Q1H PRN for DRY EYES, #1 TUB 07/05/18 Albuterol Sulfate (Proair Respiclick) 90 Mcg Aer.pow.ba, 2 PUFFS INHALATION Q4 PRN for WHEEZING, BOTTLE 07/05/18 Medications Current Medications IV Flush (NS 3 ml) 3 ml PER PROTOCOL IV Last administered on 08/05/18at 09:07; Admin Dose 3 ML; Start 07/29/18 at 06:30 Ondansetron HCl (Zofran Inj) 4 mg Q6H PRN IV NAUSEA/VOMITING Last administered on 08/18/18at 18:34; Admin Dose 4 MG; Start 07/29/18 at 06:30 Acetaminophen/ Hydrocodone Bitart (Whitney (5/325)) 1 tab Q6H PRN PO .MOD PAIN 4- 6 Last administered on 08/19/18at 03:42; Admin Dose 1 TAB; Start 07/29/18 at 06:30 Enoxaparin Sodium (Lovenox) 30 mg DAILY SC Last administered on 08/21/18 08:50; Admin Dose 30 MG; Start 07/29/18 at 09:00 Diagnostic Test (Pha) (Accu-Chek) 1 ea 02 XX Last administered on 08/18/18 02:00; Admin Dose 1 EA; Start 07/30/18 at 02:00 Acetaminophen (Tylenol Tab) 650 mg Q6H PRN PO .PAIN 1-3 OR TEMP Last administered on 08/17/18 05:46; Admin Dose 650 MG; Start 07/29/18 at 07:00 Eye Lubricant (Akwa Oint) 1 applic Q1H PRN BOTH EYES DRY EYES; Start 07/29/18 at 08:00 Aspirin (Halfprin) 81 mg DAILY PO Last administered on 08/21/18 08:46; Admin Dose 81 MG; Start 07/29/18 at 09:00 Atorvastatin Calcium (Lipitor) 20 mg QHS PO Last administered on 08/20/18 20:33; Admin Dose 20 MG; Start 07/29/18 at 21:00 Clopidogrel Bisulfate (plaVIX) 75 mg DAILY PO Last administered on 08/21/18 08:46; Admin Dose 75 MG; Start 07/29/18 at 09:00 Cyanocobalamin (Vitamin B12) 50 mcg DAILY PO Last administered on 08/21/18 08:46; Admin Dose 50 MCG; Start 07/29/18 at 09:00 Levothyroxine Sodium (Synthroid) 50 mcg BEFORE BREAKFAST PO Last administered on 08/20/18 06:01; Admin Dose 50 MCG; Start 07/29/18 at 07:00 Metoprolol Succinate (Toprol Xl) 25 mg BID PO Last administered on 08/18/18 20:26; Admin Dose 25 MG; Start 07/29/18 at 09:00; Status Hold Polyethyl Glycol/ Propylene Glycol (Systane 0.3-0.4% Eye Drops) 1 drop Q4H PRN BOTH EYES DRY EYES; Start 07/29/18 at 08:00 Albuterol (Ventolin Hfa) 2 puff Q4H RESP THERAPY PRN INH WHEEZING; Start 9 at 09:00 Miscellaneous Information 1 ea NOTE XX ; Start 07/29/18 at 07:00 Glucose (Glutose) 15 gm Q15M PRN PO DECREASED GLUCOSE; Start 07/29/18 at 07:00 Glucose (Glutose) 22.5 gm Q15M PRN PO DECREASED GLUCOSE; Start 07/29/18 at 07:00 Dextrose (D50w Syringe) 25 ml Q15M PRN IV DECREASED GLUCOSE; Start 07/29/18 at 07:00 Dextrose (D50w Syringe) 50 ml Q15M PRN IV DECREASED GLUCOSE; Start 07/29/18 at 0 7:00 Glucagon (Glucagen) 1 mg Q15M PRN IM DECREASED GLUCOSE; Start 07/29/18 at 07:00 Glucose (Glutose) 15 gm Q15M PRN BUCCAL DECREASED GLUCOSE; Start 07/29/18 at 07:00 Alprazolam (Xanax) 0.25 mg Q8H PRN PO ANXIETY Last administered on 08/19/18at 00:10; Admin Dose 0.25 MG; Start 07/29/18 at 12:30 Polyethylene Glycol (Miralax) 17 gm DAILY PO Last administered on 08/17/18at 08:44; Admin Dose 17 GM; Start 07/29/18 at 12:30 Docusate Sodium (Colace) 100 mg BID PO Last administered on 08/20/18at 20:33; A dmin Dose 100 MG; Start 07/31/18 at 21:00 Magnesium Hydroxide (Milk Of Mag) 30 ml Q12H PRN PO STOMACH UPSET/CRAMPING Last administered on 07/31/18at 21:28; Admin Dose 30 ML; Start 07/31/18 at 20:00 Al Hydrox/Mg Hydrox/Simethicone (Mag-Al Plus) 30 ml Q6H PRN PO GASTROINTESTINAL UPSET Last administered on 08/16/18at 23:45; Admin Dose 30 ML; Start 08/03/18 at 17:30 Insulin Glargine (Lantus) 8 units DAILY@2000 SC Last administered on 08/20/18at 20:36; Admin Dose 8 UNITS; Start 08/09/18 at 20:00 Albuterol/ Ipratropium (Duoneb) 3 ml Q2H RESP THERAPY PRN HHN sob Last administered on 08/19/18at 03:28; Admin Dose 3 ML; Start 08/14/18 at 12:00 Diltiazem HCl (Cardizem Iv) 5 mg Q4 PRN IV HR>70 for Cardiac CTA Last administered on 08/19/18 03:50; Admin Dose 5 MG; Start 08/17/18 at 11:30 Lorazepam (Ativan) 1 mg Q8H PRN IV ANXIETY Last administered on 08/20/18 12:39; Admin Dose 1 MG; Start 08/17/18 at 15:30 Epoetin Glenn-epbx (Retacrit (Non-Esrd)) 20,000 unit TuThSa@1700 SC Last administered on 08/18/18 17:14; Admin Dose 20,000 UNIT; Start 08/18/18 at 17:00 Simethicone (Mylicon) 160 mg Q6H PRN PO DISTENSION/GAS/BLOATING Last administered on 08/18/18 08:49; Admin Dose 160 MG; Start 08/17/18 at 20:00 Propofol 100 ml @ 1.568 mls/ hr Q12H IV Last administered on 08/21/18 08:44; Admin Dose 0.627 MLS/HR; Start 08/19/18 at 09:30 Norepinephrine 250 ml @ 1.875 mls/ hr TITRATE IV Last administered on 08/20/18 08:57; Admin Dose 9.375 MLS/HR; Start 08/19/18 at 10:30 Insulin Aspart (Novolog Insulin Pen) NOVOLOG *MODERATE* ALGORI... Q4 SC Last administered on 08/21/18 01:38; Admin Dose 2 UNIT; Start 08/20/18 at 01:00 Sodium Chloride 1,000 ml @ 50 mls/hr Q20H IV Last administered on 08/21/18 03:56; Admin Dose 50 MLS/HR; Start 08/20/18 at 08:00 Lansoprazole (Prevacid) 30 mg DAILY@06 NGT ; Start 08/21/18 at 06:00 Cefepime HCl 50 ml @ 100 mls/hr Q12H IVPB Last administered on 08/21/18 05:33; Admin Dose 100 MLS/HR; Start 08/20/18 at 18:00 Assessment/Plan Hospital Course (Demo Recall) 1.Preop-neg trop .3 including this am. NL EF by echo - stres test with small rev defect - will defer to Dr. sim if LHC is warranted - med Rx for now - CTA to follow. Now s/p hypoxic carpercapnic arrest - resumed circulation post CODE Blue. In ICU - con't to wean off meds. 2.Abnl ecg-ECG today with inferior ST elevation but with normal concaviity and Q's isolated to lead 3 No chest pain or sob/neg trop this am. ? pericarditics. NL EF by echo this admit - no CP now - currently, no ectopy on tele VS stable now. Treated. 3.Uterine cancer - oncology follows 4.DM - on mes, keep euglycemic - con't ICU care. 5.HTN - well controlled, will monitor clinically - om meds 6.HL 7. ARF - CR better at 1.12 - stable. 8. Asystole - no indication for pacer with reversible cause. 9. Pleural effusion -awaiting drain. TUAN LANGLEY MD Aug 21, 2018 12:17
--- NOTE | 2018-08-21 15:07 | CONS ---
Assessment/Plan Assessment/Plan Hospital Course (Demo Recall) No acute events patient remains intubated on low-dose levo fed no fevers WBC 16.3 platelets 659 neutrophils 82.8 BUN 40 creatinine 1.12 Chest x-ray this morning revealed consolidation of the majority of the right lung is unchanged. A large right pleural effusion unchanged Antimicrobials: Cefepime Indwelling: Endotracheal tube NG tube Stafford catheter femoral triple-lumen catheter Physical examination: Well-developed fragile elderly woman who is in no distress. Head atraumatic normocephalic sclera nonicteric vehicle mucosa dry neck is supple chest rise symmetrical breath sounds diminished bases heart: S1- S2 abdomen soft bowel sounds hypoactive extremities with trace edema Assessment: 1. Shock status post asystolic cardiopulmonary arrest 2. Respiratory failure 3. Persistent right pleural effusion likely malignant, possibly parapneumonic 4. 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 Acute kidney insufficiency 6. Diabetes 7. Pneumonia Plan: Remains unchanged, continue present care, antibiotics, follow sputum culture, plan for right Pleurx Consultation Date/Type/Reason Admit Date/Time Jul 29, 2018 at 06:16 Initial Consult Date 08/15/18 Type of Consult id Requesting Provider: SANDI MURDOCK NP Date/Time of Note DATE: 08/21/18 TIME: 15:06 Exam/Review of Systems Exam Vitals Vital Signs Date Temp Pulse Resp B/P (MAP) Pulse Ox O2 O2 Flow FiO2 Time Delivery Rate 08/21/18 77 111/63 100 14:45 (79) 08/21/18 98.2 24 Mechanical 12:00 Ventilator 08/21/18 30 11:07 08/19/18 6.0 07:26 Intake and Output 08/20/18 08/20/18 08/21/18 1515:00 23:00 07:00 IntakeIntake Total 654.293 ml 910.015 ml 599.066 ml OutputOutput Total 80 ml 145 ml 130 ml BalanceBalance 574.293 ml 765.015 ml 469.066 ml Results Result Diagram: 08/21/18 0430 08/21/18 0430 Results 24hrs Laboratory Tests Test 08/20/18 16:28 08/20/18 20:33 08/21/18 01:00 08/21/18 04:30 Bedside Glucose 172 183 156 White Blood Count 16.3 H Red Blood Count 3.50 L Hemoglobin 10.2 L Hematocrit 30.3 L Mean Corpuscular 86.6 Volume Mean Corpuscular 29.1 Hemoglobin Mean Corpuscular 33.7 Hemoglobin Concent Red Cell 17.3 H Distribution Width Platelet Count 659 H Mean Platelet Volume 9.7 Immature 0.800 H Granulocytes % Neutrophils % 82.8 H Lymphocytes % 8.3 L Monocytes % 6.7 Eosinophils % 1.3 Basophils % 0.1 Nucleated Red Blood 0.2 H Cells % Immature 0.130 H Granulocytes # Neutrophils # 13.5 H Lymphocytes # 1.4 Monocytes # 1.1 H Eosinophils # 0.2 Basophils # 0.0 Nucleated Red Blood 0.0 Cells # Sodium Level 139 Potassium Level 3.6 Chloride Level 113 H Carbon Dioxide Level 19 L Anion Gap 7 Blood Urea Nitrogen 40 H Creatinine 1.12 H Est Glomerular 48 L Filtrat Rate mL/min Glucose Level 135 Calcium Level 8.1 L Phosphorus Level 2.9 Magnesium Level 2.4 Test 08/21/18 04:50 08/21/18 09:12 08/21/18 13:06 Bedside Glucose 129 147 125 Medications Medication Current Medications IV Flush (NS 3 ml) 3 ml PER PROTOCOL IV Last administered on 08/05/18 09:07; Admin Dose 3 ML; Start 07/29/18 at 06:30 Ondansetron HCl (Zofran Inj) 4 mg Q6H PRN IV NAUSEA/VOMITING Last administered on 08/18/18 18:34; Admin Dose 4 MG; Start 07/29/18 at 06:30 Acetaminophen/ Hydrocodone Bitart ([place] (5/325)) 1 tab Q6H PRN PO .MOD PAIN 4- 6 Last administered on 08/19/18 03:42; Admin Dose 1 TAB; Start 07/29/18 at 06:30 Enoxaparin Sodium (Lovenox) 30 mg DAILY SC Last administered on 08/21/18 08:50; Admin Dose 30 MG; Start 07/29/18 at 09:00 Diagnostic Test (Pha) (Accu-Chek) 1 ea 02 XX Last administered on 08/18/18 02:00; Admin Dose 1 EA; Start 07/30/18 at 02:00 Acetaminophen (Tylenol Tab) 650 mg Q6H PRN PO .PAIN 1-3 OR TEMP Last administered on 08/17/18 05:46; Admin Dose 650 MG; Start 07/29/18 at 07:00 Eye Lubricant (Akwa Oint) 1 applic Q1H PRN BOTH EYES DRY EYES; Start 07/29/18 at 08:00 Aspirin (Halfprin) 81 mg DAILY PO Last administered on 08/21/18 08:46; Admin Dose 81 MG; Start 07/29/18 at 09:00 Atorvastatin Calcium (Lipitor) 20 mg QHS PO Last administered on 08/20/18 20:33; Admin Dose 20 MG; Start 07/29/18 at 21:00 Clopidogrel Bisulfate (plaVIX) 75 mg DAILY PO Last administered on 08/21/18 08:46; Admin Dose 75 MG; Start 07/29/18 at 09:00 Cyanocobalamin (Vitamin B12) 50 mcg DAILY PO Last administered on 08/21/18 08:46; Admin Dose 50 MCG; Start 07/29/18 at 09:00 Levothyroxine Sodium (Synthroid) 50 mcg BEFORE BREAKFAST PO Last administered on 08/20/18at 06:01; Admin Dose 50 MCG; Start 07/29/18 at 07:00 Metoprolol Succinate (Toprol Xl) 25 mg BID PO Last administered on 08/18/18 20:26; Admin Dose 25 MG; Start 07/29/18 at 09:00; Status Hold Polyethyl Glycol/ Propylene Glycol (Systane 0.3-0.4% Eye Drops) 1 drop Q4H PRN BOTH EYES DRY EYES; Start 07/29/18 at 08:00 Albuterol (Ventolin Hfa) 2 puff Q4H RESP THERAPY PRN INH WHEEZING; Start 07/29/18 at 09:00 Miscellaneous Information 1 ea NOTE XX ; Start 07/29/18 at 07:00 Glucose (Glutose) 15 gm Q15M PRN PO DECREASED GLUCOSE; Start 07/29/18 at 07:00 Glucose (Glutose) 22.5 gm Q15M PRN PO DECREASED GLUCOSE; Start 07/29/18 at 07:00 Dextrose (D50w Syringe) 25 ml Q15M PRN IV DECREASED GLUCOSE; Start 07/29/18 at 07:00 Dextrose (D50w Syringe) 50 ml Q15M PRN IV DECREASED GLUCOSE; Start 07/29/18 at 07:00 Glucagon (Glucagen) 1 mg Q15M PRN IM DECREASED GLUCOSE; Start 07/29/18 at 07:00 Glucose (Glutose) 15 gm Q15M PRN BUCCAL DECREASED GLUCOSE; Start 07/29/18 at 07:00 Alprazolam (Xanax) 0.25 mg Q8H PRN PO ANXIETY Last administered on 08/19/18 00:10; Admin Dose 0.25 MG; Start 07/29/18 at 12:30 Polyethylene Glycol (Miralax) 17 gm DAILY PO Last administered on 08/17/18 08:44; Admin Dose 17 GM; Start 07/29/18 at 12:30 Docusate Sodium (Colace) 100 mg BID PO Last administered on 08/20/18 20:33; Admin Dose 100 MG; Start 07/31/18 at 21:00 Magnesium Hydroxide (Milk Of Mag) 30 ml Q12H PRN PO STOMACH UPSET/CRAMPING Last administered on 07/31/18 21:28; Admin Dose 30 ML; Start 07/31/18 at 20:00 Al Hydrox/Mg Hydrox/Simethicone (Mag-Al Plus) 30 ml Q6H PRN PO GASTROINTESTINAL UPSET Last administered on 08/16/18 23:45; Admin Dose 30 ML; Start 08/03/18 at 17:30 Insulin Glargine (Lantus) 8 units DAILY@2000 SC Last administered on 08/20/18 20:36; Admin Dose 8 UNITS; Start 08/09/18 at 20:00 Albuterol/ Ipratropium (Duoneb) 3 ml Q2H RESP THERAPY PRN HHN sob Last administered on 08/19/18 03:28; Admin Dose 3 ML; Start 08/14/18 at 12:00 Diltiazem HCl (Cardizem Iv) 5 mg Q4 PRN IV HR>70 for Cardiac CTA Last administered on 08/19/18 03:50; Admin Dose 5 MG; Start 08/17/18 at 11:30 Lorazepam (Ativan) 1 mg Q8H PRN IV ANXIETY Last administered on 08/20/18 12:39; Admin Dose 1 MG; Start 08/17/18 at 15:30 Epoetin Glenn-epbx (Retacrit (Non-Esrd)) 20,000 unit TuThSa@1700 SC Last administered on 08/18/18at 17:14; Admin Dose 20,000 UNIT; Start 08/18/18 at 17:00 Simethicone (Mylicon) 160 mg Q6H PRN PO DISTENSION/GAS/BLOATING Last administered on 08/18/18 08:49; Admin Dose 160 MG; Start 08/17/18 at 20:00 Propofol 100 ml @ 1.568 mls/ hr Q12H IV Last administered on 08/21/18at 08:44; Admin Dose 0.627 MLS/HR; Start 08/19/18 at 09:30 Norepinephrine 250 ml @ 1.875 mls/ hr TITRATE IV Last administered on 08/20/18at 08:57; Admin Dose 9.375 MLS/HR; Start 08/19/18 at 10:30 Insulin Aspart (Novolog Insulin Pen) NOVOLOG *MODERATE* ALGORI... Q4 SC Last administered on 08/21/18 01:38; Admin Dose 2 UNIT; Start 08/20/18 at 01:00 Sodium Chloride 1,000 ml @ 50 mls/hr Q20H IV Last administered on 08/21/18 03:56; Admin Dose 50 MLS/HR; Start 08/20/18 at 08:00 Lansoprazole (Prevacid) 30 mg DAILY@06 NGT ; Start 08/21/18 at 06:00 Cefepime HCl 50 ml @ 100 mls/hr Q12H IVPB Last administered on 08/21/18at 05:33; Admin Dose 100 MLS/HR; Start 08/20/18 at 18:00 DENISSE THAO NP Aug 21, 2018 15:07
[2018-08-21] MEDS: EPOETIN ALFA-EPBX (NON-ESRD 10,000 UNIT/ML VIAL SC SCH (16:15)
--- NOTE | 2018-08-21 16:21 | PN ---
Date/Time of Note Date/Time of Note DATE: 08/21/18 TIME: 16:17 Assessment/Plan VTE Prophylaxis Risk score (from Ns)>0 risk: 16 SCD applied (from Ns): No SCD contraindicated: other (per primary) Pharmacological prophylaxis: LMWH Lines/Catheters IV Catheter Type (from Nrsg): Central Line Central line still needed: Yes Urinary Cath still in place: Yes Reason Cath still needed: terminal illness/intractable pain Assessment/Plan Assessment/Plan Pt remains intubated and on pressor. Pleurx is being arranged. She has endometrial cancer with spread to liver and pleura. Prognosis is grim. Per chart, son wants her to remain a full code for now. No new suggestions. She is obviously not a surgical candidate and a very poor candidate for chemotherapy. Result Diagram: 08/21/18 0430 08/21/18 0430 Results 24hrs Laboratory Tests Test 08/20/18 16:28 08/20/18 20:33 08/21/18 01:00 08/21/18 04:30 Bedside Glucose 172 183 156 White Blood Count 16.3 H Red Blood Count 3.50 L Hemoglobin 10.2 L Hematocrit 30.3 L Mean Corpuscular 86.6 Volume Mean Corpuscular 29.1 Hemoglobin Mean Corpuscular 33.7 Hemoglobin Concent Red Cell 17.3 H Distribution Width Platelet Count 659 H Mean Platelet Volume 9.7 Immature 0.800 H Granulocytes % Neutrophils % 82.8 H Lymphocytes % 8.3 L Monocytes % 6.7 Eosinophils % 1.3 Basophils % 0.1 Nucleated Red Blood 0.2 H Cells % Immature 0.130 H Granulocytes # Neutrophils # 13.5 H Lymphocytes # 1.4 Monocytes # 1.1 H Eosinophils # 0.2 Basophils # 0.0 Nucleated Red Blood 0.0 Cells # Sodium Level 139 Potassium Level 3.6 Chloride Level 113 H Carbon Dioxide Level 19 L Anion Gap 7 Blood Urea Nitrogen 40 H Creatinine 1.12 H Est Glomerular 48 L Filtrat Rate mL/min Glucose Level 135 Calcium Level 8.1 L Phosphorus Level 2.9 Magnesium Level 2.4 Test 08/21/18 04:50 08/21/18 09:12 08/21/18 13:06 Bedside Glucose 129 147 125 Subjective 24 Hr Interval Summary Free Text/Dictation 68 yo woman intubated and sedated in the ICU Exam/Review of Systems Exam Vitals Vital Signs Date Temp Pulse Resp B/P (MAP) Pulse Ox O2 O2 Flow FiO2 Time Delivery Rate 08/21/18 96 20 72 30 15:29 08/21/18 111/63 14:45 (79) 08/21/18 98.2 Mechanical 12:00 Ventilator 08/19/18 6.0 07:26 Intake and Output 08/20/18 08/20/18 08/21/18 1515:00 23:00 07:00 IntakeIntake Total 654.293 ml 910.015 ml 599.066 ml OutputOutput Total 80 ml 145 ml 130 ml BalanceBalance 574.293 ml 765.015 ml 469.066 ml Constitutional: non-verbal Head: normocephalic Eyes: other (pallor) ENMT: intubated Respiratory: diminished breath sounds Cardiovascular: regular rate and rhythm Gastrointestinal: soft, non-tender Results Results 24hrs Laboratory Tests Test 08/20/18 16:28 08/20/18 20:33 08/21/18 01:00 08/21/18 04:30 Bedside Glucose 172 183 156 White Blood Count 16.3 H Red Blood Count 3.50 L Hemoglobin 10.2 L Hematocrit 30.3 L Mean Corpuscular 86.6 Volume Mean Corpuscular 29.1 Hemoglobin Mean Corpuscular 33.7 Hemoglobin Concent Red Cell 17.3 H Distribution Width Platelet Count 659 H Mean Platelet Volume 9.7 Immature 0.800 H Granulocytes % Neutrophils % 82.8 H Lymphocytes % 8.3 L Monocytes % 6.7 Eosinophils % 1.3 Basophils % 0.1 Nucleated Red Blood 0.2 H Cells % Immature 0.130 H Granulocytes # Neutrophils # 13.5 H Lymphocytes # 1.4 Monocytes # 1.1 H Eosinophils # 0.2 Basophils # 0.0 Nucleated Red Blood 0.0 Cells # Sodium Level 139 Potassium Level 3.6 Chloride Level 113 H Carbon Dioxide Level 19 L Anion Gap 7 Blood Urea Nitrogen 40 H Creatinine 1.12 H Est Glomerular 48 L Filtrat Rate mL/min Glucose Level 135 Calcium Level 8.1 L Phosphorus Level 2.9 Magnesium Level 2.4 Test 08/21/18 04:50 08/21/18 09:12 08/21/18 13:06 Bedside Glucose 129 147 125 Medications Medication Current Medications IV Flush (NS 3 ml) 3 ml PER PROTOCOL IV Last administered on 08/05/18 09:07; Admin Dose 3 ML; Start 07/29/18 at 06:30 Ondansetron HCl (Zofran Inj) 4 mg Q6H PRN IV NAUSEA/VOMITING Last administered on 08/18/18 18:34; Admin Dose 4 MG; Start 07/29/18 at 06:30 Acetaminophen/ Hydrocodone Bitart ([place] (5/325)) 1 tab Q6H PRN PO .MOD PAIN 4- 6 Last administered on 08/19/18 03:42; Admin Dose 1 TAB; Start 07/29/18 at 06:30 Enoxaparin Sodium (Lovenox) 30 mg DAILY SC Last administered on 08/21/18 08:50; Admin Dose 30 MG; Start 07/29/18 at 09:00 Diagnostic Test (Pha) (Accu-Chek) 1 ea 02 XX Last administered on 08/18/18 02:00; Admin Dose 1 EA; Start 07/30/18 at 02:00 Acetaminophen (Tylenol Tab) 650 mg Q6H PRN PO .PAIN 1-3 OR TEMP Last administered on 08/17/18 05:46; Admin Dose 650 MG; Start 07/29/18 at 07:00 Eye Lubricant (Akwa Oint) 1 applic Q1H PRN BOTH EYES DRY EYES; Start 07/29/18 at 08:00 Aspirin (Halfprin) 81 mg DAILY PO Last administered on 08/21/18 08:46; Admin Dose 81 MG; Start 07/29/18 at 09:00 Atorvastatin Calcium (Lipitor) 20 mg QHS PO Last administered on 08/20/18 20:33; Admin Dose 20 MG; Start 07/29/18 at 21:00 Clopidogrel Bisulfate (plaVIX) 75 mg DAILY PO Last administered on 08/21/18 08:46; Admin Dose 75 MG; Start 07/29/18 at 09:00 Cyanocobalamin (Vitamin B12) 50 mcg DAILY PO Last administered on 08/21/18 08:46; Admin Dose 50 MCG; Start 07/29/18 at 09:00 Levothyroxine Sodium (Synthroid) 50 mcg BEFORE BREAKFAST PO Last administered on 08/20/18 06:01; Admin Dose 50 MCG; Start 07/29/18 at 07:00 Metoprolol Succinate (Toprol Xl) 25 mg BID PO Last administered on 08/18/18at 20:26; Admin Dose 25 MG; Start 07/29/18 at 09:00; Status Hold Polyethyl Glycol/ Propylene Glycol (Systane 0.3-0.4% Eye Drops) 1 drop Q4H PRN BOTH EYES DRY EYES; Start 07/29/18 at 08:00 Albuterol (Ventolin Hfa) 2 puff Q4H RESP THERAPY PRN INH WHEEZING; Start 07/29/18 at 09:00 Miscellaneous Information 1 ea NOTE XX ; Start 07/29/18 at 07:00 Glucose (Glutose) 15 gm Q15M PRN PO DECREASED GLUCOSE; Start 07/29/18 at 07:00 Glucose (Glutose) 22.5 gm Q15M PRN PO DECREASED GLUCOSE; Start 07/29/18 at 07:00 Dextrose (D50w Syringe) 25 ml Q15M PRN IV DECREASED GLUCOSE; Start 07/29/18 at 07:00 Dextrose (D50w Syringe) 50 ml Q15M PRN IV DECREASED GLUCOSE; Start 07/29/18 at 07:00 Glucagon (Glucagen) 1 mg Q15M PRN IM DECREASED GLUCOSE; Start 07/29/18 at 07:00 Glucose (Glutose) 15 gm Q15M PRN BUCCAL DECREASED GLUCOSE; Start 07/29/18 at 07:00 Alprazolam (Xanax) 0.25 mg Q8H PRN PO ANXIETY Last administered on 08/19/18at 00:10; Admin Dose 0.25 MG; Start 07/29/18 at 12:30 Polyethylene Glycol (Miralax) 17 gm DAILY PO Last administered on 08/17/18at 08:44; Admin Dose 17 GM; Start 07/29/18 at 12:30 Docusate Sodium (Colace) 100 mg BID PO Last administered on 08/20/18at 20:33; Admin Dose 100 MG; Start 07/31/18 at 21:00 Magnesium Hydroxide (Milk Of Mag) 30 ml Q12H PRN PO STOMACH UPSET/CRAMPING Last administered on 07/31/18at 21:28; Admin Dose 30 ML; Start 07/31/18 at 20:00 Al Hydrox/Mg Hydrox/Simethicone (Mag-Al Plus) 30 ml Q6H PRN PO GASTROINTESTINAL UPSET Last administered on 08/16/18 23:45; Admin Dose 30 ML; Start 08/03/18 at 17:30 Insulin Glargine (Lantus) 8 units DAILY@2000 SC Last administered on 08/20/18 20:36; Admin Dose 8 UNITS; Start 08/09/18 at 20:00 Albuterol/ Ipratropium (Duoneb) 3 ml Q2H RESP THERAPY PRN HHN sob Last administered on 08/19/18 03:28; Admin Dose 3 ML; Start 08/14/18 at 12:00 Diltiazem HCl (Cardizem Iv) 5 mg Q4 PRN IV HR>70 for Cardiac CTA Last administered on 08/19/18 03:50; Admin Dose 5 MG; Start 08/17/18 at 11:30 Lorazepam (Ativan) 1 mg Q8H PRN IV ANXIETY Last administered on 08/20/18 12:39; Admin Dose 1 MG; Start 08/17/18 at 15:30 Epoetin Glenn-epbx (Retacrit (Non-Esrd)) 20,000 unit TuThSa@1700 SC Last administered on 08/21/18 16:15; Admin Dose 20,000 UNIT; Start 08/18/18 at 17:00 Simethicone (Mylicon) 160 mg Q6H PRN PO DISTENSION/GAS/BLOATING Last administered on 08/18/18 08:49; Admin Dose 160 MG; Start 08/17/18 at 20:00 Propofol 100 ml @ 1.568 mls/ hr Q12H IV Last administered on 08/21/18 08:44; Admin Dose 0.627 MLS/HR; Start 08/19/18 at 09:30 Norepinephrine 250 ml @ 1.875 mls/ hr TITRATE IV Last administered on 08/20/18 08:57; Admin Dose 9.375 MLS/HR; Start 08/19/18 at 10:30 Insulin Aspart (Novolog Insulin Pen) NOVOLOG *MODERATE* ALGORI... Q4 SC Last administered on 08/21/18 01:38; Admin Dose 2 UNIT; Start 08/20/18 at 01:00 Sodium Chloride 1,000 ml @ 50 mls/hr Q20H IV Last administered on 08/21/18at 03:56; Admin Dose 50 MLS/HR; Start 08/20/18 at 08:00 Lansoprazole (Prevacid) 30 mg DAILY@06 NGT ; Start 08/21/18 at 06:00 Cefepime HCl 50 ml @ 100 mls/hr Q12H IVPB Last administered on 08/21/18at 05:33; Admin Dose 100 MLS/HR; Start 08/20/18 at 18:00 TUAN BARRON MD Aug 21, 2018 16:21
[2018-08-21] MEDS: ATORVASTATIN 20 MG TAB PO SCH (20:23)
[2018-08-21] MEDS: INSULIN GLARGINE [LANTus] (100 UNITS/ML) SYG SC SCH (20:33)
[2018-08-22] VITALS (63 sets, daily range): BP systolic 76–149; BP diastolic 45–99; PULSE 50–98; RESP 7–29
[2018-08-22] MEDS: SOD CHLORIDE 0.9% 1,000 ML IV SCH (00:10)
[2018-08-22] MEDS: INSULIN ASPART [NOVOLOG] 3 ML PEN SC SCH ×6 (00:15→20:18)
[2018-08-22] MEDS: ACCU-CHEK XX SCH (01:58)
[2018-08-22] MEDS: CEFEPIME 2GM/50 ML (PMX) 50 ML IVPB SCH (05:04)
[2018-08-22] MEDS: LANSOPRAZOLE 30 MG CAP NGT SCH (05:05)
[2018-08-22] MEDS: LEVOTHYROXINE 50 MCG TAB PO SCH (06:07)
[2018-08-22] MEDS: PROPOFOL 100 ML IV SCH ×2 (06:44→20:21)
[2018-08-22] MEDS: POTASSIUM CHLORIDE 100 ML IVPB SCH ×2 (06:44→09:28)
--- NOTE | 2018-08-22 08:08 | PN ---
DATE: 08/22/2018 SUBJECTIVE: The patient has been weaned off pressor support. No other acute events noted. No hemop tysis, hematemesis or hematochezia. The patient is pending PleurX catheter placement. OBJECTIVE: VITAL SIGNS: Blood pressure is 134/80, respirations 16, pulse 73, temperature 98.6. HEENT: Head is normocephalic. NECK: Supple. HEART: Regular rate. LUNGS: Show diminished breath sounds at the base. ABDOMEN: Soft, nontender to palpation without rebound or guarding. EXTREMITIES: Negative for clubbing, cyanosis. Positive edema. DERMATOLOGIC: No rashes. MUSCULOSKELETAL: No joint effusion. NEUROLOGIC: No change in exam. MEDICATIONS: Reviewed. LABORATORY DATA: Reviewed. IMAGING STUDIES: Reviewed. ASSESSMENT AND PLAN: 1. Nonoliguric acute kidney injury with previous baseline creatinine of 1.2 to 1.4 mg/dL. Etiology of acute kidney injury is secondary to hemodynamics. Renal function is stable, slowly improving. Co ntinue current treatment plan, supportive care, renally dose all medications. We will discontinue IV fluids. 2. Anemia. Monitor hemoglobin and hematocrit levels. 3. Hypokalemia. Replete with potassium chloride. 4. Mineral bone disorder, monitor calcium and phosphorus levels. 5. Ventilator-dependent respiratory failure. Vent settings and ABG was reviewed. Continue to monit or. Follow up with pulmonary. 6. Pleural effusions. The patient is pending PleurX catheter placement. 7. Coronary artery disease. Continue medical management. 8. Diabetes. Continue current insulin regimen. 9. Hypothyroidism. Continue Synthroid. 10. Respiratory alkalosis. Continue to monitor. 11. Status post cardiac arrest. 12. Liver mass consistent with metastatic carcinosarcoma. Continue to monitor. Follow up with Onco logy. 13. Lower extremity edema, etiology is multifactorial. Continue to monitor. We will resume intermi ttent diuretic therapy once the patient is hemodynamically stable. 14. Septic shock. The patient is currently off pressor support. Continue medical management. Disc ontinue IV fluids. Continue antibiotic therapy. 15. Acute encephalopathy. Etiology is toxic metabolic. Dictated By: JACOB KAUFMAN/EMA Conf#: [id number] DID#: [id number] CC: TAN MAIER MD; MARY VILLATORO MD;*EndCC*
--- NOTE | 2018-08-22 08:51 | PN ---
Date/Time of Note Date/Time of Note DATE: 08/22/18 TIME: 08:50 Assessment/Plan VTE Prophylaxis Risk score (from Nsg)>0 risk: 8 SCD applied (from Nsg): Yes Pharmacological prophylaxis: LMWH Lines/Catheters IV Catheter Type (from Nrsg): Central Line Central line still needed: Yes Urinary Cath still in place: Yes Reason Cath still needed: other (indicate) Assessment/Plan Hospital Course SUBJECTIVE: Remains intubated. On propofol. Off Levophed. OBJECTIVE: Physical Exam General: Adequately build 68 year-old female lying in bed in no apparent distress. HEENT: Normocephalic, atraumatic. Eyes: Anicteric sclerae, conjunctivae clear. ENT: Nasal septum midline, oral mucosa is dry. Neck supple, no JVD noticed. Respiratory: Bilaterally diminished breath sounds. ETT to mechanical ventilator. Cardiovascular: S1, S2 heard. Regular rate and rhythm. Abdomen: Soft, nontender, and nondistended. Bowel sounds positive in all 4 quadrants. Genitourinary: Deferred. Extremities: No cyanosis, no clubbing. Bilateral lower extremity 1+ edema. Neurologic: The patient is sedated. Labs & Vitals per chart ASSESSMENT & PLAN This is a 68-year-old female with past medical history of diabetes mellitus, peripheral artery disease, stroke, dyslipidemia, and hypothyroidism. The patient presented to the emergency room with multiple complaints including bilateral lower extremity edema, unintentional weight loss, etc. The patient was admitted to inpatient setting for further treatment and evaluation. The patient underwent a CT scan of the abdomen and pelvis on 08/01/2018 that showed abnormal enlargement of the uterus with significant thickening of the endometrial stripe with pelvis MRI showing irregular 9 cm exophytic posterior uterine mass. 1. Metastatic carcinosarcoma of uterus. Being followed by oncology. Awaiting genomic studies to determine mind responsiveness of this tumor to PD-L1 inhibitors. However, a poor candidate for chemo as per oncology. 2. Malignant pleural effusion. Status post right-sided thoracentesis on 08/15/2018. 3. Positive Lexiscan myocardial perfusion study. Study positive for partially reversible perfusion defect in the distal anterior wall. Being followed by cardiology. Continue aspirin plus Plavix. 4. Status post cardiopulmonary arrest on 08/19/2018. Etiology could be secondary to underlying hypoxia versus others. Intubated and on pressors. Poor prognosis. 5. Peripheral artery disease. Being followed by vascular surgery. Optimize medical management. Continue aspirin plus Plavix. Continue statins. 6. Diabetes mellitus. Hemoglobin A1c 6.3. Continue sliding scale insulin along with basal. 7. Hypothyroidism. Continue Synthroid. 8. Acute kidney injury. Being followed by nephrology. Use nephrotoxic drugs with caution. 9. Normocytic anemia. Monitor H&H closely. Continue iron supplements. 10. Acute respiratory failure. Hypoxic. Ventilator management as per pulmonology. 11. S/P Shock. S/P IV pressors for blood pressure support. 12. Fluids, electrolytes, and nutrition. NPO. NGT feeds. 13. DVT prophylaxis. Subcutaneous Lovenox (renally dosed). 14. Plan. Continue current management. Poor prognosis. As per the conversation with the patient's son Yaima on 08/22/2018, they want the patient to remain a full code. The patient was seen in collaboration with Dr. Hancock. Critical care time: 35 mins. Result Diagram: 08/22/18 0400 08/22/18 0400 Results 24hrs Laboratory Tests Test 08/21/18 09:12 08/21/18 13:06 08/21/18 16:13 08/21/18 20:17 Bedside Glucose 147 125 112 103 Test 08/22/18 00:14 08/22/18 04:00 08/22/18 04:54 Bedside Glucose 97 91 White Blood Count 16.5 H Red Blood Count 3.78 L Hemoglobin 10.8 L Hematocrit 32.2 L Mean Corpuscular 85.2 Volume Mean Corpuscular 28.6 L Hemoglobin Mean Corpuscular 33.5 Hemoglobin Concent Red Cell 17.6 H Distribution Width Platelet Count 690 H Mean Platelet Volume 9.8 Immature 0.800 H Granulocytes % Neutrophils % 75.3 Lymphocytes % 11.9 L Monocytes % 9.6 Eosinophils % 2.2 Basophils % 0.2 Nucleated Red Blood 0.3 H Cells % Immature 0.130 H Granulocytes # Neutrophils # 12.4 H Lymphocytes # 2.0 Monocytes # 1.6 H Eosinophils # 0.4 Basophils # 0.0 Nucleated Red Blood 0.1 H Cells # Sodium Level 141 Potassium Level 3.4 L Chloride Level 114 H Carbon Dioxide Level 17 L Anion Gap 10 Blood Urea Nitrogen 40 H Creatinine 1.10 H Est Glomerular 49 L Filtrat Rate mL/min Glucose Level 84 # Calcium Level 8.3 L Phosphorus Level 3.3 Magnesium Level 2.6 H Exam/Review of Systems Exam Vitals Vital Signs Date Temp Pulse Resp B/P (MAP) Pulse Ox O2 O2 Flow FiO2 Time Delivery Rate 08/22/18 77 24 100 30 07:34 08/22/18 134/80 Mechanical 07:00 (98) Ventilator 08/22/18 97.0 04:00 08/19/18 6.0 07:26 Intake and Output 08/21/18 08/21/18 08/22/18 1515:00 23:00 07:00 IntakeIntake Total 528.145 ml 605.985 ml 470.1345 ml OutputOutput Total 120 ml 155 ml 140 ml BalanceBalance 408.145 ml 450.985 ml 330.1345 ml Results Results 24hrs Laboratory Tests Test 08/21/18 09:12 08/21/18 13:06 08/21/18 16:13 08/21/18 20:17 Bedside Glucose 147 125 112 103 Test 08/22/18 00:14 08/22/18 04:00 08/22/18 04:54 Bedside Glucose 97 91 White Blood Count 16.5 H Red Blood Count 3.78 L Hemoglobin 10.8 L Hematocrit 32.2 L Mean Corpuscular 85.2 Volume Mean Corpuscular 28.6 L Hemoglobin Mean Corpuscular 33.5 Hemoglobin Concent Red Cell 17.6 H Distribution Width Platelet Count 690 H Mean Platelet Volume 9.8 Immature 0.800 H Granulocytes % Neutrophils % 75.3 Lymphocytes % 11.9 L Monocytes % 9.6 Eosinophils % 2.2 Basophils % 0.2 Nucleated Red Blood 0.3 H Cells % Immature 0.130 H Granulocytes # Neutrophils # 12.4 H Lymphocytes # 2.0 Monocytes # 1.6 H Eosinophils # 0.4 Basophils # 0.0 Nucleated Red Blood 0.1 H Cells # Sodium Level 141 Potassium Level 3.4 L Chloride Level 114 H Carbon Dioxide Level 17 L Anion Gap 10 Blood Urea Nitrogen 40 H Creatinine 1.10 H Est Glomerular 49 L Filtrat Rate mL/min Glucose Level 84 # Calcium Level 8.3 L Phosphorus Level 3.3 Magnesium Level 2.6 H Medications Medication Current Medications IV Flush (NS 3 ml) 3 ml PER PROTOCOL IV Last administered on 08/05/18at 09:07; Admin Dose 3 ML; Start 6/2/19 at 06:30 Ondansetron HCl (Zofran Inj) 4 mg Q6H PRN IV NAUSEA/VOMITING Last administered on 08/18/18 18:34; Admin Dose 4 MG; Start 07/29/18 at 06:30 Acetaminophen/ Hydrocodone Bitart ([place] (5/325)) 1 tab Q6H PRN PO .MOD PAIN 4- 6 Last administered on 08/19/18 03:42; Admin Dose 1 TAB; Start 07/29/18 at 06:30 Enoxaparin Sodium (Lovenox) 30 mg DAILY SC Last administered on 08/21/18 08:50; Admin Dose 30 MG; Start 07/29/18 at 09:00 Diagnostic Test (Pha) (Accu-Chek) 1 ea 02 XX Last administered on 08/18/18 02:00; Admin Dose 1 EA; Start 07/30/18 at 02:00 Acetaminophen (Tylenol Tab) 650 mg Q6H PRN PO .PAIN 1-3 OR TEMP Last administered on 08/17/18 05:46; Admin Dose 650 MG; Start 07/29/18 at 07:00 Eye Lubricant (Akwa Oint) 1 applic Q1H PRN BOTH EYES DRY EYES; Start 07/29/18 at 08:00 Aspirin (Halfprin) 81 mg DAILY PO Last administered on 08/21/18 08:46; Admin Dose 81 MG; Start 07/29/18 at 09:00 Atorvastatin Calcium (Lipitor) 20 mg QHS PO Last administered on 08/21/18 20:23; Admin Dose 20 MG; Start 07/29/18 at 21:00 Clopidogrel Bisulfate (plaVIX) 75 mg DAILY PO Last administered on 08/21/18 08:46; Admin Dose 75 MG; Start 07/29/18 at 09:00 Cyanocobalamin (Vitamin B12) 50 mcg DAILY PO Last administered on 08/21/18 08:46; Admin Dose 50 MCG; Start 07/29/18 at 09:00 Levothyroxine Sodium (Synthroid) 50 mcg BEFORE BREAKFAST PO Last administered on 08/20/18 06:01; Admin Dose 50 MCG; Start 07/29/18 at 07:00 Metoprolol Succinate (Toprol Xl) 25 mg BID PO Last administered on 6/22/19at 20:26; Admin Dose 25 MG; Start 07/29/18 at 09:00; Status Hold Polyethyl Glycol/ Propylene Glycol (Systane 0.3-0.4% Eye Drops) 1 drop Q4H PRN BOTH EYES DRY EYES; Start 07/29/18 at 08:00 Albuterol (Ventolin Hfa) 2 puff Q4H RESP THERAPY PRN INH WHEEZING; Start 07/29/18 at 09:00 Miscellaneous Information 1 ea NOTE XX ; Start 07/29/18 at 07:00 Glucose (Glutose) 15 gm Q15M PRN PO DECREASED GLUCOSE; Start 07/29/18 at 07:00 Glucose (Glutose) 22.5 gm Q15M PRN PO DECREASED GLUCOSE; Start 07/29/18 at 07:00 Dextrose (D50w Syringe) 25 ml Q15M PRN IV DECREASED GLUCOSE; Start 07/29/18 at 07:00 Dextrose (D50w Syringe) 50 ml Q15M PRN IV DECREASED GLUCOSE; Start 07/29/18 at 07:00 Glucagon (Glucagen) 1 mg Q15M PRN IM DECREASED GLUCOSE; Start 07/29/18 at 07:00 Glucose (Glutose) 15 gm Q15M PRN BUCCAL DECREASED GLUCOSE; Start 07/29/18 at 07:00 Alprazolam (Xanax) 0.25 mg Q8H PRN PO ANXIETY Last administered on 08/19/18at 00:10; Admin Dose 0.25 MG; Start 07/29/18 at 12:30 Polyethylene Glycol (Miralax) 17 gm DAILY PO Last administered on 08/17/18at 08:44; Admin Dose 17 GM; Start 07/29/18 at 12:30 Docusate Sodium (Colace) 100 mg BID PO Last administered on 08/21/18 20:23; Admin Dose 100 MG; Start 07/31/18 at 21:00 Magnesium Hydroxide (Milk Of Mag) 30 ml Q12H PRN PO STOMACH UPSET/CRAMPING Last administered on 07/31/18at 21:28; Admin Dose 30 ML; Start 07/31/18 at 20:00 Al Hydrox/Mg Hydrox/Simethicone (Mag-Al Plus) 30 ml Q6H PRN PO GASTROINTESTINAL UPSET Last administered on 08/16/18at 23:45; Admin Dose 30 ML; Start 08/03/18 at 17:30 Insulin Glargine (Lantus) 8 units DAILY@2000 SC Last administered on 08/21/18 20:33; Admin Dose 8 UNITS; Start 08/09/18 at 20:00 Albuterol/ Ipratropium (Duoneb) 3 ml Q2H RESP THERAPY PRN HHN sob Last administered on 08/19/18 03:28; Admin Dose 3 ML; Start 08/14/18 at 12:00 Diltiazem HCl (Cardizem Iv) 5 mg Q4 PRN IV HR>70 for Cardiac CTA Last administered on 08/19/18 03:50; Admin Dose 5 MG; Start 08/17/18 at 11:30 Lorazepam (Ativan) 1 mg Q8H PRN IV ANXIETY Last administered on 08/20/18 12:39; Admin Dose 1 MG; Start 08/17/18 at 15:30 Epoetin Glenn-epbx (Retacrit (Non-Esrd)) 20,000 unit TuThSa@1700 SC Last administered on 08/21/18 16:15; Admin Dose 20,000 UNIT; Start 08/18/18 at 17:00 Simethicone (Mylicon) 160 mg Q6H PRN PO DISTENSION/GAS/BLOATING Last a dministered on 08/18/18 08:49; Admin Dose 160 MG; Start 08/17/18 at 20:00 Propofol 100 ml @ 1.568 mls/ hr Q12H IV Last administered on 08/22/18 06:44; Admin Dose 12.545 MLS/HR; Start 08/19/18 at 09:30 Norepinephrine 250 ml @ 1.875 mls/ hr TITRATE IV Last administered on 08/20/18 08:57; Admin Dose 9.375 MLS/HR; Start 08/19/18 at 10:30 Insulin Aspart (Novolog Insulin Pen) NOVOLOG *MODERATE* ALGORI... Q4 SC Last administered on 08/21/18 01:38; Admin Dose 2 UNIT; Start 08/20/18 at 01:00 Sodium Chloride 1,000 ml @ 50 mls/hr Q20H IV Last administered on 08/22/18 00:10; Admin Dose 50 MLS/HR; Start 08/20/18 at 08:00 Lansoprazole (Prevacid) 30 mg DAILY@06 NGT ; Start 08/21/18 at 06:00 Cefepime HCl 50 ml @ 100 mls/hr Q12H IVPB Last administered on 08/22/18at 05:04; Admin Dose 100 MLS/HR; Start 08/20/18 at 18:00 Potassium Chloride 100 ml @ 50 mls/hr Q2H IVPB Last administered on 08/22/18at 06:44; Admin Dose 50 MLS/HR; Start 08/22/18 at 07:00; Stop 08/22/18 at 10:59 SANDI MURDOCK NP Aug 22, 2018 08:51
[2018-08-22] MEDS: ENOXAPARIN 30 MG/0.3 ML SYG SC SCH (09:00)
[2018-08-22] MEDS: CYANOCOBALAMIN 100 MCG TAB PO SCH (09:27)
[2018-08-22] MEDS: DOCUSATE SODIUM 100 MG CAP PO SCH ×2 (09:27→20:19)
[2018-08-22] MEDS: POLYETHYLENE GLYCOL 17 GM PACKET PO SCH (09:27)
[2018-08-22] MEDS: CLOPIDOGREL 75 MG TAB PO SCH (09:27)
[2018-08-22] MEDS: ASPIRIN (EC) 81 MG TAB PO SCH (09:28)
--- NOTE | 2018-08-22 10:49 | CONS ---
Consult Date/Type/Reason Admit Date/Time Jul 29, 2018 at 06:16 Initial Consult Date 08/15/18 Type of Consult Pulmonary Requesting Provider: SANDI MURDOCK NP Date/Time of Note DATE: 08/22/18 TIME: 10:46 Subjective Remains intubated on mechanical ventilation pending Pleurx catheter. Objective Vital Signs Date Temp Pulse Resp B/P (MAP) Pulse Ox O2 O2 Flow FiO2 Time Delivery Rate 08/22/18 67 23 100 30 09:29 08/22/18 134/80 Mechanical 07:00 (98) Ventilator 08/22/18 97.0 04:00 08/19/18 6.0 07:26 Intake and Output 08/21/18 08/21/18 08/22/18 1515:00 23:00 07:00 IntakeIntake Total 528.145 ml 605.985 ml 470.1345 ml OutputOutput Total 120 ml 155 ml 140 ml BalanceBalance 408.145 ml 450.985 ml 330.1345 ml Exam GENERAL: Elderly appearing lady orally intubated on mechanical ventilation VITAL SIGNS: per chart NECK: Supple. No JVD or lymphadenopathy. CARDIAC EXAM: S1, S2. No added sounds or murmurs. CHEST: Diminished air entry right side greater than left ABDOMEN: Soft, nontender. No guarding or rebound. EXTREMITIES: No cyanosis, clubbing or edema. NEUROLOGIC: Generalized weakness. No focal deficits. Vent Setting Ventilator Support Mode: AC Fraction of Inspired Oxygen pe: 30 Positive End Expiratory Pressu: 5.0 Results/Medications Result Diagram: 08/22/18 0400 08/22/18 0400 Results 24 hrs Laboratory Tests Test 08/21/18 13:06 08/21/18 16:13 08/21/18 20:17 08/22/18 00:14 Bedside Glucose 125 112 103 97 Test 08/22/18 04:00 08/22/18 04:54 08/22/18 09:26 White Blood Count 16.5 H Red Blood Count 3.78 L Hemoglobin 10.8 L Hematocrit 32.2 L Mean Corpuscular 85.2 Volume Mean Corpuscular 28.6 L Hemoglobin Mean Corpuscular 33.5 Hemoglobin Concent Red Cell 17.6 H Distribution Width Platelet Count 690 H Mean Platelet Volume 9.8 Immature 0.800 H Granulocytes % Neutrophils % 75.3 Lymphocytes % 11.9 L Monocytes % 9.6 Eosinophils % 2.2 Basophils % 0.2 Nucleated Red Blood 0.3 H Cells % Immature 0.130 H Granulocytes # Neutrophils # 12.4 H Lymphocytes # 2.0 Monocytes # 1.6 H Eosinophils # 0.4 Basophils # 0.0 Nucleated Red Blood 0.1 H Cells # Sodium Level 141 Potassium Level 3.4 L Chloride Level 114 H Carbon Dioxide Level 17 L Anion Gap 10 Blood Urea Nitrogen 40 H Creatinine 1.10 H Est Glomerular 49 L Filtrat Rate mL/min Glucose Level 84 # Calcium Level 8.3 L Phosphorus Level 3.3 Magnesium Level 2.6 H Bedside Glucose 91 89 Medications Current Medications IV Flush (NS 3 ml) 3 ml PER PROTOCOL IV Last administered on 08/05/18 09:07; Admin Dose 3 ML; Start 07/29/18 at 06:30 Ondansetron HCl (Zofran Inj) 4 mg Q6H PRN IV NAUSEA/VOMITING Last administered on 08/18/18 18:34; Admin Dose 4 MG; Start 07/29/18 at 06:30 Acetaminophen/ Hydrocodone Bitart ([place] (5/325)) 1 tab Q6H PRN PO .MOD PAIN 4- 6 Last administered on 08/19/18 03:42; Admin Dose 1 TAB; Start 07/29/18 at 06:30 Enoxaparin Sodium (Lovenox) 30 mg DAILY SC Last administered on 08/21/18 08:50; Admin Dose 30 MG; Start 07/29/18 at 09:00 Diagnostic Test (Pha) (Accu-Chek) 1 ea 02 XX Last administered on 08/18/18 02:00; Admin Dose 1 EA; Start 07/30/18 at 02:00 Acetaminophen (Tylenol Tab) 650 mg Q6H PRN PO .PAIN 1-3 OR TEMP Last ad ministered on 08/17/18 05:46; Admin Dose 650 MG; Start 07/29/18 at 07:00 Eye Lubricant (Akwa Oint) 1 applic Q1H PRN BOTH EYES DRY EYES; Start 07/29/18 at 08:00 Aspirin (Halfprin) 81 mg DAILY PO Last administered on 08/22/18 09:28; Admin Dose 81 MG; Start 07/29/18 at 09:00 Atorvastatin Calcium (Lipitor) 20 mg QHS PO Last administered on 08/21/18 20:23; Admin Dose 20 MG; Start 07/29/18 at 21:00 Clopidogrel Bisulfate (plaVIX) 75 mg DAILY PO Last administered on 08/22/18at 09:27; Admin Dose 75 MG; Start 07/29/18 at 09:00 Cyanocobalamin (Vitamin B12) 50 mcg DAILY PO Last administered on 08/22/18at 09:27; Admin Dose 50 MCG; Start 07/29/18 at 09:00 Levothyroxine Sodium (Synthroid) 50 mcg BEFORE BREAKFAST PO Last administered on 08/20/18at 06:01; Admin Dose 50 MCG; Start 07/29/18 at 07:00 Metoprolol Succinate (Toprol Xl) 25 mg BID PO Last administered on 08/18/18 20:26; Admin Dose 25 MG; Start 07/29/18 at 09:00; Status Hold Polyethyl Glycol/ Propylene Glycol (Systane 0.3-0.4% Eye Drops) 1 drop Q4H PRN BOTH EYES DRY EYES; Start 07/29/18 at 08:00 Albuterol (Ventolin Hfa) 2 puff Q4H RESP THERAPY PRN INH WHEEZING; Start 07/29/18 at 09:00 Miscellaneous Information 1 ea NOTE XX ; Start 07/29/18 at 07:00 Glucose (Glutose) 15 gm Q15M PRN PO DECREASED GLUCOSE; Start 07/29/18 at 07:00 Glucose (Glutose) 22.5 gm Q15M PRN PO DECREASED GLUCOSE; Start 07/29/18 at 07:00 Dextrose (D50w Syringe) 25 ml Q15M PRN IV DECREASED GLUCOSE; Start 07/29/18 at 07:00 Dextrose (D50w Syringe) 50 ml Q15M PRN IV DECREASED GLUCOSE; Start 07/29/18 at 07:00 Glucagon (Glucagen) 1 mg Q15M PRN IM DECREASED GLUCOSE; Start 07/29/18 at 07:00 Glucose (Glutose) 15 gm Q15M PRN BUCCAL DECREASED GLUCOSE; Start 07/29/18 at 07: 00 Alprazolam (Xanax) 0.25 mg Q8H PRN PO ANXIETY Last administered on 08/19/18at 00:10; Admin Dose 0.25 MG; Start 07/29/18 at 12:30 Polyethylene Glycol (Miralax) 17 gm DAILY PO Last administered on 08/22/18 09:27; Admin Dose 17 GM; Start 07/29/18 at 12:30 Docusate Sodium (Colace) 100 mg BID PO Last administered on 08/22/18 09:27; Admin Dose 100 MG; Start 07/31/18 at 21:00 Magnesium Hydroxide (Milk Of Mag) 30 ml Q12H PRN PO STOMACH UPSET/CRAMPING Last administered on 07/31/18 21:28; Admin Dose 30 ML; Start 07/31/18 at 20:00 Al Hydrox/Mg Hydrox/Simethicone (Mag-Al Plus) 30 ml Q6H PRN PO GASTROINTESTINAL UPSET Last administered on 08/16/18 23:45; Admin Dose 30 ML; Start 08/03/18 at 17:30 Insulin Glargine (Lantus) 8 units DAILY@2000 SC Last administered on 08/21/18 20:33; Admin Dose 8 UNITS; Start 08/09/18 at 20:00 Albuterol/ Ipratropium (Duoneb) 3 ml Q2H RESP THERAPY PRN HHN sob Last a dministered on 08/19/18 03:28; Admin Dose 3 ML; Start 08/14/18 at 12:00 Diltiazem HCl (Cardizem Iv) 5 mg Q4 PRN IV HR>70 for Cardiac CTA Last administered on 08/19/18 03:50; Admin Dose 5 MG; Start 08/17/18 at 11:30 Lorazepam (Ativan) 1 mg Q8H PRN IV ANXIETY Last administered on 08/20/18 12:39; Admin Dose 1 MG; Start 08/17/18 at 15:30 Epoetin Glenn-epbx (Retacrit (Non-Esrd)) 20,000 unit TuThSa@1700 SC Last administered on 08/21/18 16:15; Admin Dose 20,000 UNIT; Start 08/18/18 at 17:00 Simethicone (Mylicon) 160 mg Q6H PRN PO DISTENSION/GAS/BLOATING Last administered on 08/18/18 08:49; Admin Dose 160 MG; Start 08/17/18 at 20:00 Propofol 100 ml @ 1.568 mls/ hr Q12H IV Last administered on 08/22/18at 06:44; Admin Dose 12.545 MLS/HR; Start 08/19/18 at 09:30 Norepinephrine 250 ml @ 1.875 mls/ hr TITRATE IV Last administered on 08/20/18 08:57; Admin Dose 9.375 MLS/HR; Start 08/19/18 at 10:30 Insulin Aspart (Novolog Insulin Pen) NOVOLOG *MODERATE* ALGORI... Q4 SC Last administered on 08/21/18at 01:38; Admin Dose 2 UNIT; Start 08/20/18 at 01:00 Sodium Chloride 1,000 ml @ 50 mls/hr Q20H IV Last administered on 08/22/18at 00:10; Admin Dose 50 MLS/HR; Start 08/20/18 at 08:00 Lansoprazole (Prevacid) 30 mg DAILY@06 NGT ; Start 08/21/18 at 06:00 Cefepime HCl 50 ml @ 100 mls/hr Q12H IVPB Last administered on 08/22/18at 05:04; Admin Dose 100 MLS/HR; Start 08/20/18 at 18:00 Potassium Chloride 100 ml @ 50 mls/hr Q2H IVPB Last administered on 08/22/18at 09:28; Admin Dose 50 MLS/HR; Start 08/22/18 at 07:00; Stop 08/22/18 at 10:59 Assessment/Plan Hospital Course (Demo Recall) Assessment 1. Status post cardiopulmonary arrest 2. Encephalopathy possibly toxic metabolic 3. Septic shock 4. Recurrent right pleural effusion probably metastatic in nature 5. Metastatic uterine cancer Plan 1. Continue mechanical ventilation, currently patient not able to extubate from mechanical ventilation. 2. Right Pleurx catheter for recurrent pleural effusion scheduled for today. 3. Decrease vasopressors as tolerated 4. Family conference regarding goals of care, test on family pending arrival of all the next of kin to make decision about goals of care. Critical care time 40 minutes FARHAN VALENTINO MD, [facility] Aug 22, 2018 10:48
--- NOTE | 2018-08-22 12:27 | CONS ---
Assessment/Plan Assessment/Plan Hospital Course (Demo Recall) IMP: 1.Preop-neg trop mutiple times. NL EF by echo. Lexiscan with possible distal anterior ischemia. NL EF 2.abnl ecg-ECG today with inferior ST elevation but with normal concavity and Q's isolated to lead 3 .. NL EF by echo this admit. multiple negative troponins and no chest pain prior to arrest 3.Uterine cancer 4.DM 5.HTN 6.HL 7.PLeural effusion-L sided large, malignant by cytology 8. Resp failure s/p intubation Recc -Now in ICU s/p cardiopulmonary arrest overnight -Continue asa/plavix -Holding BB still -wean pressors -Complete a FATEMEH -ongoing renal f/u -follow BS closely -f/u pathology from Bx -To have pleur-x catheter placement today. Thus CTA versus direct cath on hold at this timedue to instability and need for urgent pleur-x catheter Consultation Date/Type/Reason Admit Date/Time Jul 29, 2018 at 06:16 Initial Consult Date 08/10/18 Type of Consult Cardiology Reason for Consultation hypotension Requesting Provider: SANDI MURDOCK NP Date/Time of Note DATE: 08/22/18 TIME: 12:18 Exam/Review of Systems Vital Signs Vitals Vital Signs Date Temp Pulse Resp B/P (MAP) Pulse Ox O2 O2 Flow FiO2 Time Delivery Rate 08/22/18 50 16 84/53 (63) 100 11:30 08/22/18 30 11:01 08/22/18 Mechanical 11:00 Ventilator 08/22/18 97.0 08:00 08/19/18 6.0 07:26 Intake and Output 08/21/18 08/21/18 08/22/18 1515:00 23:00 07:00 IntakeIntake Total 528.145 ml 605.985 ml 523.4745 ml OutputOutput Total 120 ml 155 ml 165 ml BalanceBalance 408.145 ml 450.985 ml 358.4745 ml Exam Exam Review of Systems: CONSTITUTIONAL: No fevers, chills. PULMONARY: intubated CARDIOVASCULAR: No chest pain/palpitations GASTROINTESTINAL: No nausea/vomiting. GENITOURINARY: No hematuria/dysuria. MUSCULOSKELETAL: No myagias/arthalgias. PSYCHIATRIC: The patient denies depression. NEUROLOGIC: sedated Constitutional: alert Psych: no complaints Head: normocephalic ENMT: mucosa pink and moist Neck: supple, jvd (9 cm water) Respiratory: diminished breath sounds (at bases/B) Cardiovascular: regular rate and rhythm Gastrointestinal: soft, non-tender Musculoskeletal: muscle weakness (generalized) Extremities: edema (none) Neurological: other (No focal deficits) Labs Result Diagram: 08/22/18 0400 08/22/18 0400 Results 24hrs Laboratory Tests Test 08/21/18 13:06 08/21/18 16:13 08/21/18 20:17 08/22/18 00:14 Bedside Glucose 125 112 103 97 Test 08/22/18 04:00 08/22/18 04:54 08/22/18 09:26 White Blood Count 16.5 H Red Blood Count 3.78 L Hemoglobin 10.8 L Hematocrit 32.2 L Mean Corpuscular 85.2 Volume Mean Corpuscular 28.6 L Hemoglobin Mean Corpuscular 33.5 Hemoglobin Concent Red Cell 17.6 H Distribution Width Platelet Count 690 H Mean Platelet Volume 9.8 Immature 0.800 H Granulocytes % Neutrophils % 75.3 Lymphocytes % 11.9 L Monocytes % 9.6 Eosinophils % 2.2 Basophils % 0.2 Nucleated Red Blood 0.3 H Cells % Immature 0.130 H Granulocytes # Neutrophils # 12.4 H Lymphocytes # 2.0 Monocytes # 1.6 H Eosinophils # 0.4 Basophils # 0.0 Nucleated Red Blood 0.1 H Cells # Sodium Level 141 Potassium Level 3.4 L Chloride Level 114 H Carbon Dioxide Level 17 L Anion Gap 10 Blood Urea Nitrogen 40 H Creatinine 1.10 H Est Glomerular 49 L Filtrat Rate mL/min Glucose Level 84 # Calcium Level 8.3 L Phosphorus Level 3.3 Magnesium Level 2.6 H Bedside Glucose 91 89 Medications Medications Current Medications IV Flush (NS 3 ml) 3 ml PER PROTOCOL IV Last administered on 08/05/18at 09:07; Admin Dose 3 ML; Start 07/29/18 at 06:30 Ondansetron HCl (Zofran Inj) 4 mg Q6H PRN IV NAUSEA/VOMITING Last administered on 08/18/18at 18:34; Admin Dose 4 MG; Start 07/29/18 at 06:30 Acetaminophen/ Hydrocodone Bitart ([place] (5/325)) 1 tab Q6H PRN PO .MOD PAIN 4- 6 Last administered on 08/19/18 03:42; Admin Dose 1 TAB; Start 07/29/18 at 06:30 Enoxaparin Sodium (Lovenox) 30 mg DAILY SC Last administered on 08/21/18 08: 50; Admin Dose 30 MG; Start 07/29/18 at 09:00 Diagnostic Test (Pha) (Accu-Chek) 1 ea 02 XX Last administered on 08/18/18 02:00; Admin Dose 1 EA; Start 07/30/18 at 02:00 Acetaminophen (Tylenol Tab) 650 mg Q6H PRN PO .PAIN 1-3 OR TEMP Last administered on 08/17/18 05:46; Admin Dose 650 MG; Start 07/29/18 at 07:00 Eye Lubricant (Akwa Oint) 1 applic Q1H PRN BOTH EYES DRY EYES; Start 07/29/18 at 08:00 Aspirin (Halfprin) 81 mg DAILY PO Last administered on 08/22/18 09:28; Admin Dose 81 MG; Start 07/29/18 at 09:00 Atorvastatin Calcium (Lipitor) 20 mg QHS PO Last administered on 08/21/18 20:23; Admin Dose 20 MG; Start 07/29/18 at 21:00 Clopidogrel Bisulfate (plaVIX) 75 mg DAILY PO Last administered on 08/22/18 09:27; Admin Dose 75 MG; Start 07/29/18 at 09:00 Cyanocobalamin (Vitamin B12) 50 mcg DAILY PO Last administered on 08/22/18 09:27; Admin Dose 50 MCG; Start 07/29/18 at 09:00 Levothyroxine Sodium (Synthroid) 50 mcg BEFORE BREAKFAST PO Last administered on 08/20/18 06:01; Admin Dose 50 MCG; Start 07/29/18 at 07:00 Metoprolol Succinate (Toprol Xl) 25 mg BID PO Last administered on 08/18/18 20:26; Admin Dose 25 MG; Start 07/29/18 at 09:00; Status Hold Polyethyl Glycol/ Propylene Glycol (Systane 0.3-0.4% Eye Drops) 1 drop Q4H PRN BOTH EYES DRY EYES; Start 07/29/18 at 08:00 Albuterol (Ventolin Hfa) 2 puff Q4H RESP THERAPY PRN INH WHEEZING; Start 07/29/18 at 09:00 Miscellaneous Information 1 ea NOTE XX ; Start 07/29/18 at 07:00 Glucose (Glutose) 15 gm Q15M PRN PO DECREASED GLUCOSE; Start 07/29/18 at 07:00 Glucose (Glutose) 22.5 gm Q15M PRN PO DECREASED GLUCOSE; Start 07/29/18 at 07:00 Dextrose (D50w Syringe) 25 ml Q15M PRN IV DECREASED GLUCOSE; Start 07/29/18 at 07:00 Dextrose (D50w Syringe) 50 ml Q15M PRN IV DECREASED GLUCOSE; Start 07/29/18 at 07:00 Glucagon (Glucagen) 1 mg Q15M PRN IM DECREASED GLUCOSE; Start 07/29/18 at 07:00 Glucose (Glutose) 15 gm Q15M PRN BUCCAL DECREASED GLUCOSE; Start 07/29/18 at 07:00 Alprazolam (Xanax) 0.25 mg Q8H PRN PO ANXIETY Last administered on 08/19/18at 00:10; Admin Dose 0.25 MG; Start 07/29/18 at 12:30 Polyethylene Glycol (Miralax) 17 gm DAILY PO Last administered on 08/22/18at 09:27; Admin Dose 17 GM; Start 07/29/18 at 12:30 Docusate Sodium (Colace) 100 mg BID PO Last administered on 08/22/18at 09:27; Admin Dose 100 MG; Start 07/31/18 at 21:00 Magnesium Hydroxide (Milk Of Mag) 30 ml Q12H PRN PO STOMACH UPSET/CRAMPING Last administered on 07/31/18at 21:28; Admin Dose 30 ML; Start 07/31/18 at 20:00 Al Hydrox/Mg Hydrox/Simethicone (Mag-Al Plus) 30 ml Q6H PRN PO GASTROINTESTINAL UPSET Last administered on 08/16/18at 23:45; Admin Dose 30 ML; Start 08/03/18 at 17:30 Insulin Glargine (Lantus) 8 units DAILY@2000 SC Last administered on 08/21/18at 20:33; Admin Dose 8 UNITS; Start 08/09/18 at 20:00 Albuterol/ Ipratropium (Duoneb) 3 ml Q2H RESP THERAPY PRN HHN sob Last administered on 08/19/18 03:28; Admin Dose 3 ML; Start 08/14/18 at 12:00 Diltiazem HCl (Cardizem Iv) 5 mg Q4 PRN IV HR>70 for Cardiac CTA Last administered on 08/19/18 03:50; Admin Dose 5 MG; Start 08/17/18 at 11:30 Lorazepam (Ativan) 1 mg Q8H PRN IV ANXIETY Last administered on 08/20/18 12:39; Admin Dose 1 MG; Start 08/17/18 at 15:30 Epoetin Glenn-epbx (Retacrit (Non-Esrd)) 20,000 unit TuThSa@1700 SC Last administered on 08/21/18 16:15; Admin Dose 20,000 UNIT; Start 08/18/18 at 17:00 Simethicone (Mylicon) 160 mg Q6H PRN PO DISTENSION/GAS/BLOATING Last administered on 08/18/18 08:49; Admin Dose 160 MG; Start 08/17/18 at 20:00 Propofol 100 ml @ 1.568 mls/ hr Q12H IV Last administered on 08/22/18 06:44; Admin Dose 12.545 MLS/HR; Start 08/19/18 at 09:30 Norepinephrine 250 ml @ 1.875 mls/ hr TITRATE IV Last administered on 08/20/18 08:57; Admin Dose 9.375 MLS/HR; Start 08/19/18 at 10:30 Insulin Aspart (Novolog Insulin Pen) NOVOLOG *MODERATE* ALGORI... Q4 SC Last administered on 08/21/18 01:38; Admin Dose 2 UNIT; Start 08/20/18 at 01:00 Sodium Chloride 1,000 ml @ 50 mls/hr Q20H IV Last administered on 08/22/18 00:10; Admin Dose 50 MLS/HR; Start 08/20/18 at 08:00 Lansoprazole (Prevacid) 30 mg DAILY@06 NGT ; Start 08/21/18 at 06:00 Cefepime HCl 50 ml @ 100 mls/hr Q12H IVPB Last administered on 08/22/18 05:04; Admin Dose 100 MLS/HR; Start 08/20/18 at 18:00 TAN LIRIANO Aug 22, 2018 12:27
--- NOTE | 2018-08-22 14:30 | CONS ---
Assessment/Plan Assessment/Plan Hospital Course (Demo Recall) No acute events patient remains intubated on low-dose levo fed no fevers WBC 16.3 platelets 659 neutrophils 82.8 BUN 40 creatinine 1.12 1200 no acute events patient remains intubated she is on blanket warmer secondary to hypothermia no fevers overnight WBC 16.5 H&H 10.8 and 32.2 platelets 690 neutrophils 75.3 BUN [address] of the brain yesterday revealed patchy right mastoid air cells disease. No evidence of acute intracranial pathology Antimicrobials: Cefepime Indwelling: Endotracheal tube NG tube [place] catheter femoral triple-lumen catheter Physical examination: Well-developed fragile elderly woman who is in no distress. Head atraumatic normocephalic sclera nonicteric vehicle mucosa dry neck is supple chest rise symmetrical breath sounds diminished bases heart: S1- S2 abdomen soft bowel sounds hypoactive extremities with trace edema Assessment: 1. Shock status post asystolic cardiopulmonary arrest 2. Respiratory failure 3. Persistent right pleural effusion likely malignant, possibly parapneumonic 4. 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 Acute kidney insufficiency 6. Diabetes 7. Pneumonia 8. Right mastoiditis Plan: Remains unchanged, change antibiotics to Zosyn, plan for right Pleurx Consultation Date/Type/Reason Admit Date/Time Jul 29, 2018 at 06:16 Initial Consult Date 08/15/18 Type of Consult id Requesting Provider: SANDI MURDOCK NP Date/Time of Note DATE: 08/22/18 TIME: 14:29 Exam/Review of Systems Exam Vitals Vital Signs Date Temp Pulse Resp B/P (MAP) Pulse Ox O2 O2 Flow FiO2 Time Delivery Rate 08/22/18 76 16 100 30 13:15 08/22/18 123/64 12:30 (83) 08/22/18 97.4 Mechanical 12:00 Ventilator 08/19/18 6.0 07:26 Intake and Output 08/21/18 08/21/18 08/22/18 1515:00 23:00 07:00 IntakeIntake Total 528.145 ml 605.985 ml 523.4745 ml OutputOutput Total 120 ml 155 ml 165 ml BalanceBalance 408.145 ml 450.985 ml 358.4745 ml Results Result Diagram: 08/22/18 0400 08/22/18 0400 Results 24hrs Laboratory Tests Test 08/21/18 16:13 08/21/18 20:17 08/22/18 00:14 08/22/18 04:00 Bedside Glucose 112 103 97 White Blood Count 16.5 H Red Blood Count 3.78 L Hemoglobin 10.8 L Hematocrit 32.2 L Mean Corpuscular 85.2 Volume Mean Corpuscular 28.6 L Hemoglobin Mean Corpuscular 33.5 Hemoglobin Concent Red Cell 17.6 H Distribution Width Platelet Count 690 H Mean Platelet Volume 9.8 Immature 0.800 H Granulocytes % Neutrophils % 75.3 Lymphocytes % 11.9 L Monocytes % 9.6 Eosinophils % 2.2 Basophils % 0.2 Nucleated Red Blood 0.3 H Cells % Immature 0.130 H Granulocytes # Neutrophils # 12.4 H Lymphocytes # 2.0 Monocytes # 1.6 H Eosinophils # 0.4 Basophils # 0.0 Nucleated Red Blood 0.1 H Cells # Sodium Level 141 Potassium Level 3.4 L Chloride Level 114 H Carbon Dioxide Level 17 L Anion Gap 10 Blood Urea Nitrogen 40 H Creatinine 1.10 H Est Glomerular 49 L Filtrat Rate mL/min Glucose Level 84 # Calcium Level 8.3 L Phosphorus Level 3.3 Magnesium Level 2.6 H Test 08/22/18 04:54 08/22/18 09:26 08/22/18 12:28 Bedside Glucose 91 89 81 Medications Medication Current Medications IV Flush (NS 3 ml) 3 ml PER PROTOCOL IV Last administered on 08/05/18 09:07; Admin Dose 3 ML; Start 07/29/18 at 06:30 Ondansetron HCl (Zofran Inj) 4 mg Q6H PRN IV NAUSEA/VOMITING Last administered on 08/18/18at 18:34; Admin Dose 4 MG; Start 07/29/18 at 06:30 Acetaminophen/ Hydrocodone Bitart ([place] (5/325)) 1 tab Q6H PRN PO .MOD PAIN 4- 6 Last administered on 08/19/18 03:42; Admin Dose 1 TAB; Start 07/29/18 at 06:30 Enoxaparin Sodium (Lovenox) 30 mg DAILY SC Last administered on 08/21/18 08:50; Admin Dose 30 MG; Start 07/29/18 at 09:00 Diagnostic Test (Pha) (Accu-Chek) 1 ea 02 XX Last administered on 08/18/18at 02:00; Admin Dose 1 EA; Start 07/30/18 at 02:00 Acetaminophen (Tylenol Tab) 650 mg Q6H PRN PO .PAIN 1-3 OR TEMP Last administer ed on 08/17/18at 05:46; Admin Dose 650 MG; Start 07/29/18 at 07:00 Eye Lubricant (Akwa Oint) 1 applic Q1H PRN BOTH EYES DRY EYES; Start 07/29/18 at 08:00 Aspirin (Halfprin) 81 mg DAILY PO Last administered on 08/22/18at 09:28; Admin Dose 81 MG; Start 07/29/18 at 09:00 Atorvastatin Calcium (Lipitor) 20 mg QHS PO Last administered on 08/21/18 20:23; Admin Dose 20 MG; Start 07/29/18 at 21:00 Clopidogrel Bisulfate (plaVIX) 75 mg DAILY PO Last administered on 08/22/18at 09:27; Admin Dose 75 MG; Start 07/29/18 at 09:00 Cyanocobalamin (Vitamin B12) 50 mcg DAILY PO Last administered on 08/22/18at 09:27; Admin Dose 50 MCG; Start 07/29/18 at 09:00 Levothyroxine Sodium (Synthroid) 50 mcg BEFORE BREAKFAST PO Last administered on 08/20/18at 06:01; Admin Dose 50 MCG; Start 07/29/18 at 07:00 Metoprolol Succinate (Toprol Xl) 25 mg BID PO Last administered on 08/18/18at 20:26; Admin Dose 25 MG; Start 07/29/18 at 09:00; Status Hold Polyethyl Glycol/ Propylene Glycol (Systane 0.3-0.4% Eye Drops) 1 drop Q4H PRN BOTH EYES DRY EYES; Start 07/29/18 at 08:00 Albuterol (Ventolin Hfa) 2 puff Q4H RESP THERAPY PRN INH WHEEZING; Start 07/29/18 at 09:00 Miscellaneous Information 1 ea NOTE XX ; Start 07/29/18 at 07:00 Glucose (Glutose) 15 gm Q15M PRN PO DECREASED GLUCOSE; Start 07/29/18 at 07:00 Glucose (Glutose) 22.5 gm Q15M PRN PO DECREASED GLUCOSE; Start 07/29/18 at 07:00 Dextrose (D50w Syringe) 25 ml Q15M PRN IV DECREASED GLUCOSE; Start 07/29/18 at 07:00 Dextrose (D50w Syringe) 50 ml Q15M PRN IV DECREASED GLUCOSE; Start 07/29/18 at 07:00 Glucagon (Glucagen) 1 mg Q15M PRN IM DECREASED GLUCOSE; Start 07/29/18 at 07:00 Glucose (Glutose) 15 gm Q15M PRN BUCCAL DECREASED GLUCOSE; Start 07/29/18 at 07:00 Alprazolam (Xanax) 0.25 mg Q8H PRN PO ANXIETY Last administered on 08/19/18 00:10; Admin Dose 0.25 MG; Start 07/29/18 at 12:30 Polyethylene Glycol (Miralax) 17 gm DAILY PO Last administered on 08/22/18 09:27; Admin Dose 17 GM; Start 07/29/18 at 12:30 Docusate Sodium (Colace) 100 mg BID PO Last administered on 08/22/18 09:27; Admin Dose 100 MG; Start 07/31/18 at 21:00 Magnesium Hydroxide (Milk Of Mag) 30 ml Q12H PRN PO STOMACH UPSET/CRAMPING Last administered on 07/31/18 21:28; Admin Dose 30 ML; Start 07/31/18 at 20:00 Al Hydrox/Mg Hydrox/Simethicone (Mag-Al Plus) 30 ml Q6H PRN PO GASTROINTESTINAL UPSET Last administered on 08/16/18 23:45; Admin Dose 30 ML; Start 08/03/18 at 17:30 Insulin Glargine (Lantus) 8 units DAILY@2000 SC Last administered on 08/21/18 20:33; Admin Dose 8 UNITS; Start 08/09/18 at 20:00 Albuterol/ Ipratropium (Duoneb) 3 ml Q2H RESP THERAPY PRN HHN sob Last administered on 08/19/18 03:28; Admin Dose 3 ML; Start 08/14/18 at 12:00 Diltiazem HCl (Cardizem Iv) 5 mg Q4 PRN IV HR>70 for Cardiac CTA Last administered on 08/19/18 03:50; Admin Dose 5 MG; Start 08/17/18 at 11:30 Lorazepam (Ativan) 1 mg Q8H PRN IV ANXIETY Last administered on 08/20/18 12:39; Admin Dose 1 MG; Start 08/17/18 at 15:30 Epoetin Glenn-epbx (Retacrit (Non-Esrd)) 20,000 unit TuThSa@1700 SC Last administered on 08/21/18 16:15; Admin Dose 20,000 UNIT; Start 08/18/18 at 17:00 Simethicone (Mylicon) 160 mg Q6H PRN PO DISTENSION/GAS/BLOATING Last administered on 08/18/18 08:49; Admin Dose 160 MG; Start 08/17/18 at 20:00 Propofol 100 ml @ 1.568 mls/ hr Q12H IV Last administered on 08/22/18 06:44; Admin Dose 12.545 MLS/HR; Start 08/19/18 at 09:30 Norepinephrine 250 ml @ 1.875 mls/ hr TITRATE IV Last administered on 08/20/18 08:57; Admin Dose 9.375 MLS/HR; Start 08/19/18 at 10:30 Insulin Aspart (Novolog Insulin Pen) NOVOLOG *MODERATE* ALGORI... Q4 SC Last administered on 08/21/18 01:38; Admin Dose 2 UNIT; Start 08/20/18 at 01:00 Sodium Chloride 1,000 ml @ 50 mls/hr Q20H IV Last administered on 08/22/18at 00:10; Admin Dose 50 MLS/HR; Start 08/20/18 at 08:00 Lansoprazole (Prevacid) 30 mg DAILY@06 NGT ; Start 08/21/18 at 06:00 Cefepime HCl 50 ml @ 100 mls/hr Q12H IVPB Last administered on 08/22/18at 05:04; Admin Dose 100 MLS/HR; Start 08/20/18 at 18:00 DENISSE THAO NP Aug 22, 2018 14:30
[2018-08-22] MEDS: ATORVASTATIN 20 MG TAB PO SCH (20:19)
[2018-08-22] MEDS: INSULIN GLARGINE [LANTus] (100 UNITS/ML) SYG SC SCH (20:31)
[2018-08-22] MEDS: PIPER-TAZO 3.375 GM IV (PMX) 100 ML IVPB SCH (21:07)
[2018-08-23] VITALS (46 sets, daily range): BP systolic 103–141; BP diastolic 45–104; PULSE 64–125; RESP 8–28
[2018-08-23] MEDS: INSULIN ASPART [NOVOLOG] 3 ML PEN SC SCH ×6 (01:00→20:02)
[2018-08-23] MEDS: DEXTROSE 5%-0.45% NACL 1,000 ML IV SCH ×2 (01:23→21:53)
[2018-08-23] MEDS: ACCU-CHEK XX SCH (01:31)
[2018-08-23] MEDS: LANSOPRAZOLE 30 MG CAP NGT SCH (05:33)
[2018-08-23] MEDS: PIPER-TAZO 3.375 GM IV (PMX) 100 ML IVPB SCH ×3 (05:34→21:53)
[2018-08-23] MEDS: LEVOTHYROXINE 50 MCG TAB PO SCH (06:11)
[2018-08-23] MEDS ORDERED: FUROSEMIDE 40 MG INJ IV ONE (08:00)
--- NOTE | 2018-08-23 08:28 | PN ---
DATE: 08/23/2018 SUBJECTIVE: The patient remains critically ill, on full ventilatory support. The patient is on IV f luids pending eventual PleurX catheter placement. No other events noted. OBJECTIVE: VITAL SIGNS: Blood pressure is 123/52, respirations 25, pulse 79, temperature 96.4. I's and O's wer e reviewed. HEENT: Head is normocephalic. NECK: Supple. HEART: Regular rate. LUNGS: Show diminished breath sounds at the base. ABDOMEN: Soft, nontender to palpation without rebound or guarding. EXTREMITIES: Negative for clubbing, cyanosis. Positive edema. DERMATOLOGIC: No rashes. MUSCULOSKELETAL: No joint effusion. NEUROLOGIC: No change in exam. MEDICATIONS: Reviewed. LABORATORY DATA: Reviewed. IMAGING STUDIES: Reviewed. ASSESSMENT AND PLAN: 1. Nonoliguric acute kidney injury with previous baseline creatinine around 1.2 to 1.4 mg/dL. Etiol ogy of acute kidney injury is secondary to hemodynamics. Renal function continues to fluctuate. Con tinue current treatment plans, supportive care, renally dose all medications. We will recommend disc ontinue IV fluids once tube feedings are resumed. Monitor closely. 2. Volume overload. Etiology is multifactorial secondary to IV fluids, questionable diastolic heart failure. The patient will be given a dose of Lasix, monitor I's and O's and electrolytes closely. 3. Anemia. Continue to monitor hemoglobin and hematocrit levels closely. 4. Hypokalemia. Continue to monitor and replete. 5. Mineral bone disorder, monitor calcium and phosphorus levels. 6. Ventilator-dependent respiratory failure. Vent settings and ABG was reviewed. Continue to monit or. 7. Pleural effusion, pending PleurX catheter placement. Continue to monitor. 8. Coronary artery disease. Continue medical management. 9. Elevated troponin, possible non-ST elevated myocardial infarction type 1 versus type 2. Continue to monitor. Follow up with Cardiology. 10. Diabetes. Continue current insulin regimen. 11. Hypothyroidism. Continue Synthroid. 12. Status post cardiac arrest. Continue to monitor. 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 Follow up with Oncology. 14. Sepsis, status post shock. The patient is currently on pressor support. Continue to monitor. 15. Acute encephalopathy, etiology is toxic metabolic. Dictated By: JACOB KAUFMAN/EMA Conf#: [id number] [facility]#: [id number] CC: TAN MAIER MD; MARY VILLATORO MD;*[facility]*
[2018-08-23] MEDS: ENOXAPARIN 30 MG/0.3 ML SYG SC SCH (08:38)
[2018-08-23] MEDS: POLYETHYLENE GLYCOL 17 GM PACKET PO SCH (09:03)
[2018-08-23] MEDS: DOCUSATE SODIUM 100 MG CAP PO SCH ×2 (09:03→20:08)
[2018-08-23] MEDS: ASPIRIN (EC) 81 MG TAB PO SCH (09:03)
[2018-08-23] MEDS: CYANOCOBALAMIN 100 MCG TAB PO SCH (09:03)
[2018-08-23] MEDS: CLOPIDOGREL 75 MG TAB PO SCH (09:08)
--- NOTE | 2018-08-23 09:08 | PN ---
Date/Time of Note Date/Time of Note DATE: 08/23/18 TIME: 09:04 Assessment/Plan VTE Prophylaxis Risk score (from Ns)>0 risk: 9 SCD applied (from Nsg): Yes Pharmacological prophylaxis: LMWH Lines/Catheters IV Catheter Type (from Nrsg): Central Line Central line still needed: Yes Urinary Cath still in place: Yes Reason Cath still needed: terminal illness/intractable pain Assessment/Plan Hospital Course SUBJECTIVE: Remains intubated. On propofol. Off Levophed. OBJECTIVE: Physical Exam General: Adequately build 68 year-old female lying in bed in no apparent distress. HEENT: Normocephalic, atraumatic. Eyes: Anicteric sclerae, conjunctivae clear. ENT: Nasal septum midline, oral mucosa is dry. Neck supple, no JVD noticed. Respiratory: Bilaterally diminished breath sounds. ETT to mechanical ventilator. Cardiovascular: S1, S2 heard. Regular rate and rhythm. Abdomen: Soft, nontender, and nondistended. Bowel sounds positive in all 4 quadrants. Genitourinary: Deferred. Extremities: No cyanosis, no clubbing. Bilateral lower extremity 1+ edema. Neurologic: The patient is sedated. Labs & Vitals per chart ASSESSMENT & PLAN This is a 68-year-old female with past medical history of diabetes mellitus, peripheral artery disease, stroke, dyslipidemia, and hypothyroidism. The patient presented to the emergency room with multiple complaints including bilateral lower extremity edema, unintentional weight loss, etc. The patient was admitted to inpatient setting for further treatment and evaluation. The patient underwent a CT scan of the abdomen and pelvis on 08/01/2018 that showed abnormal enlargement of the uterus with significant thickening of the endometrial stripe with pelvis MRI showing irregular 9 cm exophytic posterior uterine mass. 1. Metastatic carcinosarcoma of uterus. Being followed by oncology. A poor candidate for chemo as per oncology. 2. Malignant pleural effusion. Status post right-sided thoracentesis on 08/15/2018. 3. Positive Lexiscan myocardial perfusion study. Study positive for partially reversible perfusion defect in the distal anterior wall. Being followed by cardiology. Continue aspirin plus Plavix. 4. Status post cardiopulmonary arrest on 08/19/2018. Etiology could be secondary to underlying hypoxia versus others. Intubated and on pressors. Poor prognosis. 5. NSTEMI on 08/22/2018. Continue antiplatelet therapy. Cardiology following. 6. Peripheral artery disease. Being followed by vascular surgery. Optimize medical management. Continue aspirin plus Plavix. Continue statins. 7. Diabetes mellitus. Hemoglobin A1c 6.3. Continue sliding scale insulin along with basal. 8. Hypothyroidism. Continue Synthroid. 9. Acute kidney injury. Being followed by nephrology. Use nephrotoxic drugs with caution. 10. Normocytic anemia. Monitor H&H closely. Continue Epogen. 11. Acute respiratory failure. Hypoxic. Ventilator management as per pulmonology. 12. S/P Shock. S/P IV pressors for blood pressure support. 13. Fluids, electrolytes, and nutrition. NPO. NGT feeds. 14. DVT prophylaxis. Subcutaneous Lovenox (renally dosed). 15. Plan. Continue current management. Poor prognosis. As per the conversation with the patient's son Yaima on 08/22/2018, they want the patient to remain a full code. The patient was seen in collaboration with Dr. Hancock. Critical care time: 35 mins. Result Diagram: 08/23/18 0440 08/23/18 0440 Results 24hrs Laboratory Tests Test 08/22/18 09:26 08/22/18 12:28 08/22/18 17:10 08/22/18 18:11 Bedside Glucose 89 81 76 Creatine Kinase 55 Creatine Kinase 34.0 Index Creatinine Kinase MB 18.70 H (Mass) Troponin I 2.450 *H Test 08/22/18 20:13 08/23/18 01:23 08/23/18 04:37 08/23/18 04:40 Bedside Glucose 90 104 106 White Blood Count 13.9 H Red Blood Count 3.52 L Hemoglobin 9.8 L Hematocrit 31.3 L Mean Corpuscular 88.9 Volume Mean Corpuscular 27.8 L Hemoglobin Mean Corpuscular 31.3 L Hemoglobin Concent Red Cell 17.7 H Distribution Width Platelet Count 601 H Mean Platelet Volume 9.7 Immature 1.100 H Granulocytes % Neutrophils % 70.0 Lymphocytes % 12.9 L Monocytes % 13.2 H Eosinophils % 2.4 Basophils % 0.4 Nucleated Red Blood 0.9 H Cells % Immature 0.160 H Granulocytes # Neutrophils # 9.8 H Lymphocytes # 1.8 Monocytes # 1.8 H Eosinophils # 0.3 Basophils # 0.1 Nucleated Red Blood 0.1 H Cells # Sodium Level 142 Potassium Level 3.8 Chloride Level 117 H Carbon Dioxide Level 17 L Anion Gap 8 Blood Urea Nitrogen 39 H Creatinine 1.47 H Est Glomerular 35 L Filtrat Rate mL/min Glucose Level 109 Calcium Level 8.3 L Phosphorus Level 3.5 Magnesium Level 2.7 H Creatine Kinase 48 Creatine Kinase 44.4 Index Creatinine Kinase MB 21.30 H (Mass) Troponin I 2.530 *H Exam/Review of Systems Exam Vitals Vital Signs Date Temp Pulse Resp B/P (MAP) Pulse Ox O2 O2 Flow FiO2 Time Delivery Rate 08/23/18 81 21 114/64 98 Mechanical 07:00 (81) Ventilator 08/23/18 30 05:30 08/23/18 96.4 04:00 08/19/18 6.0 07:26 Intake and Output 08/22/18 08/22/18 08/23/18 1515:00 23:00 07:00 IntakeIntake Total 476.736 ml 642.676 ml 430.176 ml OutputOutput Total 175 ml 125 ml 110 ml BalanceBalance 301.736 ml 517.676 ml 320.176 ml Results Results 24hrs Laboratory Tests Test 08/22/18 09:26 08/22/18 12:28 08/22/18 17:10 08/22/18 18:11 Bedside Glucose 89 81 76 Creatine Kinase 55 Creatine Kinase 34.0 Index Creatinine Kinase MB 18.70 H (Mass) Troponin I 2.450 *H Test 08/22/18 20:13 08/23/18 01:23 08/23/18 04:37 08/23/18 04:40 Bedside Glucose 90 104 106 White Blood Count 13.9 H Red Blood Count 3.52 L Hemoglobin 9.8 L Hematocrit 31.3 L Mean Corpuscular 88.9 Volume Mean Corpuscular 27.8 L Hemoglobin Mean Corpuscular 31.3 L Hemoglobin Concent Red Cell 17.7 H Distribution Width Platelet Count 601 H Mean Platelet Volume 9.7 Immature 1.100 H Granulocytes % Neutrophils % 70.0 Lymphocytes % 12.9 L Monocytes % 13.2 H Eosinophils % 2.4 Basophils % 0.4 Nucleated Red Blood 0.9 H Cells % Immature 0.160 H Granulocytes # Neutrophils # 9.8 H Lymphocytes # 1.8 Monocytes # 1.8 H Eosinophils # 0.3 Basophils # 0.1 Nucleated Red Blood 0.1 H Cells # Sodium Level 142 Potassium Level 3.8 Chloride Level 117 H Carbon Dioxide Level 17 L Anion Gap 8 Blood Urea Nitrogen 39 H Creatinine 1.47 H Est Glomerular 35 L Filtrat Rate mL/min Glucose Level 109 Calcium Level 8.3 L Phosphorus Level 3.5 Magnesium Level 2.7 H Creatine Kinase 48 Creatine Kinase 44.4 Index Creatinine Kinase MB 21.30 H (Mass) Troponin I 2.530 *H Medications Medication Current Medications IV Flush (NS 3 ml) 3 ml PER PROTOCOL IV Last administered on 08/05/18 09:07; Admin Dose 3 ML; Start 07/29/18 at 06:30 Ondansetron HCl (Zofran Inj) 4 mg Q6H PRN IV NAUSEA/VOMITING Last administered on 08/18/18 18:34; Admin Dose 4 MG; Start 07/29/18 at 06:30 Acetaminophen/ Hydrocodone Bitart (Timblin (5/325)) 1 tab Q6H PRN PO .MOD PAIN 4- 6 Last administered on 08/19/18 03:42; Admin Dose 1 TAB; Start 07/29/18 at 06:30 Enoxaparin Sodium (Lovenox) 30 mg DAILY SC Last administered on 08/21/18 08:50; Admin Dose 30 MG; Start 07/29/18 at 09:00 Diagnostic Test (Pha) (Accu-Chek) 1 ea 02 XX Last administered on 08/18/18 02:00; Admin Dose 1 EA; Start 07/30/18 at 02:00 Acetaminophen (Tylenol Tab) 650 mg Q6H PRN PO .PAIN 1-3 OR TEMP Last administered on 08/17/18 05:46; Admin Dose 650 MG; Start 07/29/18 at 07:00 Eye Lubricant (Akwa Oint) 1 applic Q1H PRN BOTH EYES DRY EYES; Start 07/29/18 at 08:00 Aspirin (Halfprin) 81 mg DAILY PO Last administered on 08/22/18 09:28; Admin Dose 81 MG; Start 07/29/18 at 09:00 Atorvastatin Calcium (Lipitor) 20 mg QHS PO Last administered on 08/22/18 20:1 9; Admin Dose 20 MG; Start 07/29/18 at 21:00 Clopidogrel Bisulfate (plaVIX) 75 mg DAILY PO Last administered on 08/22/18at 09:27; Admin Dose 75 MG; Start 07/29/18 at 09:00 Cyanocobalamin (Vitamin B12) 50 mcg DAILY PO Last administered on 08/22/18 09:27; Admin Dose 50 MCG; Start 07/29/18 at 09:00 Levothyroxine Sodium (Synthroid) 50 mcg BEFORE BREAKFAST PO Last administered on 08/20/18 06:01; Admin Dose 50 MCG; Start 07/29/18 at 07:00 Metoprolol Succinate (Toprol Xl) 25 mg BID PO Last administered on 08/18/18 20:26; Admin Dose 25 MG; Start 07/29/18 at 09:00; Status Hold Polyethyl Glycol/ Propylene Glycol (Systane 0.3-0.4% Eye Drops) 1 drop Q4H PRN BOTH EYES DRY EYES; Start 07/29/18 at 08:00 Albuterol (Ventolin Hfa) 2 puff Q4H RESP THERAPY PRN INH WHEEZING; Start 07/29/18 at 09:00 Miscellaneous Information 1 ea NOTE XX ; Start 07/29/18 at 07:00 Glucose (Glutose) 15 gm Q15M PRN PO DECREASED GLUCOSE; Start 07/29/18 at 07:00 Glucose (Glutose) 22.5 gm Q15M PRN PO DECREASED GLUCOSE; Start 07/29/18 at 07:00 Dextrose (D50w Syringe) 25 ml Q15M PRN IV DECREASED GLUCOSE; Start 07/29/18 at 07:00 Dextrose (D50w Syringe) 50 ml Q15M PRN IV DECREASED GLUCOSE; Start 07/29/18 at 07:00 Glucagon (Glucagen) 1 mg Q15M PRN IM DECREASED GLUCOSE; Start 07/29/18 at 07:00 Glucose (Glutose) 15 gm Q15M PRN BUCCAL DECREASED GLUCOSE; Start 07/29/18 at 07:00 Alprazolam (Xanax) 0.25 mg Q8H PRN PO ANXIETY Last administered on 08/19/18at 00:10; Admin Dose 0.25 MG; Start 07/29/18 at 12:30 Polyethylene Glycol (Miralax) 17 gm DAILY PO Last administered on 08/22/18 09:27; Admin Dose 17 GM; Start 07/29/18 at 12:30 Docusate Sodium (Colace) 100 mg BID PO Last administered on 08/22/18 09:27; Admin Dose 100 MG; Start 07/31/18 at 21:00 Magnesium Hydroxide (Milk Of Mag) 30 ml Q12H PRN PO STOMACH UPSET/CRAMPING Last administered on 07/31/18 21:28; Admin Dose 30 ML; Start 07/31/18 at 20:00 Al Hydrox/Mg Hydrox/Simethicone (Mag-Al Plus) 30 ml Q6H PRN PO GASTROINTESTINAL UPSET Last administered on 08/16/18 23:45; Admin Dose 30 ML; Start 08/03/18 at 17:30 Insulin Glargine (Lantus) 8 units DAILY@2000 SC Last administered on 08/22/18 20:31; Admin Dose 8 UNITS; Start 08/09/18 at 20:00 Albuterol/ Ipratropium (Duoneb) 3 ml Q2H RESP THERAPY PRN HHN sob Last administered on 08/19/18 03:28; Admin Dose 3 ML; Start 08/14/18 at 12:00 Diltiazem HCl (Cardizem Iv) 5 mg Q4 PRN IV HR>70 for Cardiac CTA Last administered on 08/19/18 03:50; Admin Dose 5 MG; Start 08/17/18 at 11:30 Lorazepam (Ativan) 1 mg Q8H PRN IV ANXIETY Last administered on 08/20/18 12:39; Admin Dose 1 MG; Start 08/17/18 at 15:30 Epoetin Glenn-epbx (Retacrit (Non-Esrd)) 20,000 unit TuThSa@1700 SC Last administered on 08/21/18 16:15; Admin Dose 20,000 UNIT; Start 08/18/18 at 17:00 Simethicone (Mylicon) 160 mg Q6H PRN PO DISTENSION/GAS/BLOATING Last administered on 08/18/18 08:49; Admin Dose 160 MG; Start 08/17/18 at 20:00 Propofol 100 ml @ 1.568 mls/ hr Q12H IV Last administered on 08/22/18 20:21; Admin Dose 6.272 MLS/HR; Start 08/19/18 at 09:30 Norepinephrine 250 ml @ 1.875 mls/ hr TITRATE IV Last administered on 08/20/18 08:57; Admin Dose 9.375 MLS/HR; Start 08/19/18 at 10:30 Insulin Aspart (Novolog Insulin Pen) NOVOLOG *MODERATE* ALGORI... Q4 SC Last administered on 08/21/18 01:38; Admin Dose 2 UNIT; Start 08/20/18 at 01:00 Lansoprazole (Prevacid) 30 mg DAILY@06 NGT ; Start 08/21/18 at 06:00 Piperacillin Sod/ Tazobactam Sod 100 ml @ 200 mls/hr Q8 IVPB Last administered on 08/23/18at 05:34; Admin Dose 200 MLS/HR; Start 08/22/18 at 22:00 Dextrose/Sodium Chloride 1,000 ml @ 50 mls/hr Q20H IV Last administered on 08/23/18 01:23; Admin Dose 50 MLS/HR; Start 08/23/18 at 01:30 SANDI MURDOCK NP Aug 23, 2018 09:08
--- NOTE | 2018-08-23 09:27 | CONSI ---
Assessment/Plan Assessment/Plan Assessment/Plan (Recall) 68 F c/ reported Hx of prior stroke and other comorbidities, who initially presented for evaluation of unexplained weight loss and other Sx. She was found to have a uterine cancer w/ liver met..but is reportedly not a candidate for chemotherapy. Then on 08/19, she suffered a cardiopulmonary arrest.. TTP was deferred.. She is noted to have abnormal movements concerning for seizure, for which ne urology is consulted. Head CT on 08/21 is unrevealing. P: EEG to evaluate for epileptiform activity Ativan 2mg iv prn prolonged seizure (> 5 min) or cluster.. Hold propofol and other sedatives as able Medical management and supportive care per primary Will follow Consultation Date/Type/Reason Admit Date/Time Jul 29, 2018 at 06:16 Type of Consult Neurology Reason for Consultation ams, ?seizure Requesting Provider: SANDI MURDOCK NP Date/Time of Note DATE: 08/23/18 TIME: 09:20 Hx of Present Illness The patient is critically ill, unable to contribute a Hx. It is elsewhere noted: This is a 68-year-old female with past medical history of diabetes mellitus, peripheral artery disease, stroke, dyslipidemia, and hypothyroidism. The patient presented to the emergency room with multiple complaints including bilateral lower extremity edema, unintentional weight loss, etc. The patient was admitted to inpatient setting for further treatment and evaluation. The patient underwent a CT scan of the abdomen and pelvis on 08/01/2018 that showed abnormal enlargement of the uterus with significant thickening of the endometrial stripe with pelvis MRI showing irregular 9 cm exophytic posterior uterine mass. She on 08/19 suffered a cardiopulmonary arrest w/ eventual ROSC. Targeted temperature therapy was deferred.. Staff at beside note twitching movements c/f seizure. Objective Exam Vitals Vital Signs Date Temp Pulse Resp B/P (MAP) Pulse Ox O2 O2 Flow FiO2 Time Delivery Rate 08/23/18 82 08:00 08/23/18 21 114/64 98 Mechanical 07:00 (81) Ventilator 08/23/18 30 05:30 08/23/18 96.4 04:00 08/19/18 6.0 07:26 Intake and Output 08/22/18 08/22/18 08/23/18 1515:00 23:00 07:00 IntakeIntake Total 476.736 ml 642.676 ml 430.176 ml OutputOutput Total 175 ml 125 ml 110 ml BalanceBalance 301.736 ml 517.676 ml 320.176 ml Exam PE: Gen Appearance: No Apparent Distress HEENT: Intubated Cardiovascular: Regular rate Abdomen: Soft Extremities: Dry NE: The patient was comatose. Cranial nerve examination was limited by mental status. Let pupil was effaced; right minimally reactive. There was no afferent pupillary defect. Funduscopic examination was limited. Face was grossly symmetric, w/ present corneal and cough reflexes. Tone was normal. Muscle bulk was normal. I did not see fasciculations. The patient withdrew to noxious stimulation x 4. Coordination and gait testing was limited by mental status. Arm and leg reflexes were symmetric. Valencia's sign was absent. Plantar responses were flexor. Results Result Diagram: 08/23/180 08/23/18 0440 Results 24hrs Laboratory Tests Test 08/22/18 09:26 08/22/18 12:28 08/22/18 17:10 08/22/18 18:11 Bedside Glucose 89 81 76 Creatine Kinase 55 Creatine Kinase 34.0 Index Creatinine Kinase MB 18.70 H (Mass) Troponin I 2.450 *H Test 08/22/18 20:13 08/23/18 01:23 08/23/18 04:37 08/23/18 04:40 Bedside Glucose 90 104 106 White Blood Count 13.9 H Red Blood Count 3.52 L Hemoglobin 9.8 L Hematocrit 31.3 L Mean Corpuscular 88.9 Volume Mean Corpuscular 27.8 L Hemoglobin Mean Corpuscular 31.3 L Hemoglobin Concent Red Cell 17.7 H Distribution Width Platelet Count 601 H Mean Platelet Volume 9.7 Immature 1.100 H Granulocytes % Neutrophils % 70.0 Lymphocytes % 12.9 L Monocytes % 13.2 H Eosinophils % 2.4 Basophils % 0.4 Nucleated Red Blood 0.9 H Cells % Immature 0.160 H Granulocytes # Neutrophils # 9.8 H Lymphocytes # 1.8 Monocytes # 1.8 H Eosinophils # 0.3 Basophils # 0.1 Nucleated Red Blood 0.1 H Cells # Sodium Level 142 Potassium Level 3.8 Chloride Level 117 H Carbon Dioxide Level 17 L Anion Gap 8 Blood Urea Nitrogen 39 H Creatinine 1.47 H Est Glomerular 35 L Filtrat Rate mL/min Glucose Level 109 Calcium Level 8.3 L Phosphorus Level 3.5 Magnesium Level 2.7 H Creatine Kinase 48 Creatine Kinase 44.4 Index Creatinine Kinase MB 21.30 H (Mass) Troponin I 2.530 *H Test 08/23/18 09:17 Bedside Glucose 113 Past Medical History reviewed Home Meds Active Scripts Magnesium Oxide* (Mag-Oxide*) 400 Mg Tablet, 400 MG PO BID for 3 Days, #10 TAB Prov:FERNANDO YANCEY MD 07/08/18 Lactobacillus Rhamnosus GG (Culturelle) 1 Each Capsule, 1 CAP PO BID for 14 Days, #30 CAP Prov:FERNANDO YANCEY MD 07/08/18 Acetaminophen* (Tylenol*) 325 Mg Tablet, 650 MG PO Q6H PRN for .PAIN 1-3 OR TEMP for 10 Days, #10 TAB Prov:FERNANDO YANCEY MD 07/08/18 Lisinopril* (Lisinopril*) 5 Mg Tablet, 2.5 MG PO DAILY for 15 Days, #15 TAB Prov:FERNANDO YANCEY MD 07/08/18 Sulfamethoxazole/Trimethoprim (Sulfamethoxazole-Tmp Ds Tablet) 1 Each Tablet, 1 TAB PO BID for 5 Days, #10 TAB Prov:FERNANDO YANCEY MD 07/08/18 Reported Medications Sodium Bicarbonate* (Sodium Bicarbonate*) 650 Mg Tablet, 650 MG PO TID, TAB 07/05/18 Propylene Glycol-Peg 400 (Systane 0.3-0.4% Eye Drops) 0.3-0.4 % - 30 Ml Drops, 1 DROP BOTH EYES Q4H PRN for DRY EYES, #1 BOTTLE 07/05/18 Pantoprazole* (Protonix*) 40 Mg Tablet.dr, 40 MG PO QAM, TAB 07/05/18 Ondansetron Hcl* (Zofran*) 8 Mg Tablet, 8 MG PO Q6H PRN for NAUSEA AND OR VOMITING, TAB 07/05/18 Metoprolol Succinate* (Toprol XL*) 25 Mg Tab.sr.24h, 25 MG PO BID, #30 TAB 07/05/18 Metformin* (Glucophage*) 500 Mg Tab, 500 MG PO WITH BREAKFAST, #30 TAB 07/05/18 Levothyroxine Sodium* (Synthroid*) 50 Mcg Tablet, 50 MCG PO BEFORE BREAKFAST, #30 TAB 07/05/18 Hydrocodone/Acetaminophen ([place] 5-325 Tablet) 1 Each Tablet, 1 EACH PO Q6 PRN for PAIN, TAB 07/05/18 [place]-3 Fatty Acids/Fish Oil (Fish Oil 1,000 mg Capsule) 1 Each Capsule, 1 EACH PO DAILY, CAP 07/05/18 Cyanocobalamin* (Vitamin B-12*) 50 Mcg Tablet, 50 MCG PO DAILY, TAB 07/05/18 Clopidogrel Bisulfate (Clopidogrel) 75 Mg Tablet, 75 MG PO DAILY, #30 TAB 07/05/18 Atorvastatin Calcium* (Atorvastatin Calcium*) 20 Mg Tablet, 20 MG PO QHS, #30 TAB 07/05/18 Aspirin* (Aspirin* EC) 81 Mg Tablet.dr, 81 MG PO DAILY, TAB 07/05/18 Artificial Tears* ([place] Oint*) 3.5 Gm Oint, 1 APPLIC BOTH EYES Q1H PRN for DRY EYES, #1 TUB 07/05/18 Albuterol Sulfate (Proair Respiclick) 90 Mcg Aer.pow.ba, 2 PUFFS INHALATION Q4 PRN for WHEEZING, BOTTLE 07/05/18 Medications Current Medications IV Flush (NS 3 ml) 3 ml PER PROTOCOL IV Last administered on 08/05/18at 09:07; Admin Dose 3 ML; Start 07/29/18 at 06:30 Ondansetron HCl (Zofran Inj) 4 mg Q6H PRN IV NAUSEA/VOMITING Last administered on 08/18/18at 18:34; Admin Dose 4 MG; Start 07/29/18 at 06:30 Acetaminophen/ Hydrocodone Bitart ([place] (5/325)) 1 tab Q6H PRN PO .MOD PAIN 4- 6 Last administered on 08/19/18at 03:42; Admin Dose 1 TAB; Start 07/29/18 at 06:30 Enoxaparin Sodium (Lovenox) 30 mg DAILY SC Last administered on 08/21/18at 08:50; Admin Dose 30 MG; Start 07/29/18 at 09:00 Diagnostic Test (Pha) (Accu-Chek) 1 ea 02 XX Last administered on 08/18/18at 02:00; Admin Dose 1 EA; Start 07/30/18 at 02:00 Acetaminophen (Tylenol Tab) 650 mg Q6H PRN PO .PAIN 1-3 OR TEMP Last administered on 08/17/18at 05:46; Admin Dose 650 MG; Start 07/29/18 at 07:00 Eye Lubricant (Akwa Oint) 1 applic Q1H PRN BOTH EYES DRY EYES; Start 07/29/18 at 08:00 Aspirin (Halfprin) 81 mg DAILY PO Last administered on 08/22/18 09:28; Admin Dose 81 MG; Start 07/29/18 at 09:00 Atorvastatin Calcium (Lipitor) 20 mg QHS PO Last administered on 08/22/18 20:19; Admin Dose 20 MG; Start 07/29/18 at 21:00 Clopidogrel Bisulfate (plaVIX) 75 mg DAILY PO Last administered on 08/22/18 09:27; Admin Dose 75 MG; Start 07/29/18 at 09:00 Cyanocobalamin (Vitamin B12) 50 mcg DAILY PO Last administered on 08/22/18 09:27; Admin Dose 50 MCG; Start 07/29/18 at 09:00 Levothyroxine Sodium (Synthroid) 50 mcg BEFORE BREAKFAST PO Last administered on 08/20/18 06:01; Admin Dose 50 MCG; Start 07/29/18 at 07:00 Metoprolol Succinate (Toprol Xl) 25 mg BID PO Last administered on 08/18/18 20:26; Admin Dose 25 MG; Start 07/29/18 at 09:00; Status Hold Polyethyl Glycol/ Propylene Glycol (Systane 0.3-0.4% Eye Drops) 1 drop Q4H PRN BOTH EYES DRY EYES; Start 07/29/18 at 08:00 Albuterol (Ventolin Hfa) 2 puff Q4H RESP THERAPY PRN INH WHEEZING; Start 07/29/18 at 09:00 Miscellaneous Information 1 ea NOTE XX ; Start 07/29/18 at 07:00 Glucose (Glutose) 15 gm Q15M PRN PO DECREASED GLUCOSE; Start 07/29/18 at 07:00 Glucose (Glutose) 22.5 gm Q15M PRN PO DECREASED GLUCOSE; Start 07/29/18 at 07:00 Dextrose (D50w Syringe) 25 ml Q15M PRN IV DECREASED GLUCOSE; Start 07/29/18 at 07:00 Dextrose (D50w Syringe) 50 ml Q15M PRN IV DECREASED GLUCOSE; Start 07/29/18 at 07:00 Glucagon (Glucagen) 1 mg Q15M PRN IM DECREASED GLUCOSE; Start 07/29/18 at 07:00 Glucose (Glutose) 15 gm Q15M PRN BUCCAL DECREASED GLUCOSE; Start 07/29/18 at 07:00 Alprazolam (Xanax) 0.25 mg Q8H PRN PO ANXIETY Last administered on 08/19/18 00:10; Admin Dose 0.25 MG; Start 07/29/18 at 12:30 Polyethylene Glycol (Miralax) 17 gm DAILY PO Last administered on 08/22/18 09:27; Admin Dose 17 GM; Start 07/29/18 at 12:30 Docusate Sodium (Colace) 100 mg BID PO Last administered on 08/22/18 09:27; Admin Dose 100 MG; Start 07/31/18 at 21:00 Magnesium Hydroxide (Milk Of Mag) 30 ml Q12H PRN PO STOMACH UPSET/CRAMPING Last administered on 07/31/18 21:28; Admin Dose 30 ML; Start 07/31/18 at 20:00 Al Hydrox/Mg Hydrox/Simethicone (Mag-Al Plus) 30 ml Q6H PRN PO GASTROINTESTINAL UPSET Last administered on 08/16/18 23:45; Admin Dose 30 ML; Start 08/03/18 at 17:30 Insulin Glargine (Lantus) 8 units DAILY@2000 SC Last administered on 08/22/18 20:31; Admin Dose 8 UNITS; Start 08/09/18 at 20:00 Albuterol/ Ipratropium (Duoneb) 3 ml Q2H RESP THERAPY PRN HHN sob Last administered on 08/19/18 03:28; Admin Dose 3 ML; Start 08/14/18 at 12:00 Diltiazem HCl (Cardizem Iv) 5 mg Q4 PRN IV HR>70 for Cardiac CTA Last administered on 08/19/18 03:50; Admin Dose 5 MG; Start 08/17/18 at 11:30 Lorazepam (Ativan) 1 mg Q8H PRN IV ANXIETY Last administered on 08/20/18 12:39; Admin Dose 1 MG; Start 08/17/18 at 15:30 Epoetin Glenn-epbx (Retacrit (Non-Esrd)) 20,000 unit TuThSa@1700 SC Last adm inistered on 08/21/18 16:15; Admin Dose 20,000 UNIT; Start 08/18/18 at 17:00 Simethicone (Mylicon) 160 mg Q6H PRN PO DISTENSION/GAS/BLOATING Last administered on 08/18/18 08:49; Admin Dose 160 MG; Start 08/17/18 at 20:00 Propofol 100 ml @ 1.568 mls/ hr Q12H IV Last administered on 08/22/18 20:21; Admin Dose 6.272 MLS/HR; Start 08/19/18 at 09:30 Norepinephrine 250 ml @ 1.875 mls/ hr TITRATE IV Last administered on 08/20/18 08:57; Admin Dose 9.375 MLS/HR; Start 08/19/18 at 10:30 Insulin Aspart (Novolog Insulin Pen) NOVOLOG *MODERATE* ALGORI... Q4 SC Last administered on 08/21/18 01:38; Admin Dose 2 UNIT; Start 08/20/18 at 01:00 Lansoprazole (Prevacid) 30 mg DAILY@06 NGT ; Start 08/21/18 at 06:00 Piperacillin Sod/ Tazobactam Sod 100 ml @ 200 mls/hr Q8 IVPB Last administered on 08/23/18 05:34; Admin Dose 200 MLS/HR; Start 08/22/18 at 22:00 Dextrose/Sodium Chloride 1,000 ml @ 50 mls/hr Q20H IV Last administered on 08/23/18 01:23; Admin Dose 50 MLS/HR; Start 08/23/18 at 01:30 Allergies: Coded Allergies: levofloxacin (Verified Allergy, Unknown, 07/05/18) Social History Alcohol Use: none Smoking Status: Never smoker Drug Use: none GABBY CARDOZA Aug 23, 2018 09:27
--- NOTE | 2018-08-23 10:04 | CONS ---
Consult Date/Type/Reason Admit Date/Time Jul 29, 2018 at 06:16 Initial Consult Date 08/15/18 Type of Consult Pulmonary Requesting Provider: SANDI MURDOCK [employer] Date/Time of Note DATE: 08/23/18 TIME: 10:03 Subjective Patient continues mechanical ventilation. Family wish to continue all aggressive measures including full code at present. Still pending Pleurx cat heter which apparently will happen today. Objective Vital Signs Date Temp Pulse Resp B/P (MAP) Pulse Ox O2 O2 Flow FiO2 Time Delivery Rate 08/23/18 82 08:00 08/23/18 21 114/64 98 Mechanical 07:00 (81) Ventilator 08/23/18 30 05:30 08/23/18 96.4 04:00 08/19/18 6.0 07:26 Intake and Output 08/22/18 08/22/18 08/23/18 1515:00 23:00 07:00 IntakeIntake Total 476.736 ml 642.676 ml 430.176 ml OutputOutput Total 175 ml 125 ml 110 ml BalanceBalance 301.736 ml 517.676 ml 320.176 ml Exam GENERAL: Elderly appearing lady orally intubated on mechanical ventilation VITAL SIGNS: per chart NECK: Supple. No JVD or lymphadenopathy. CARDIAC EXAM: S1, S2. No added sounds or murmurs. CHEST: Diminished air entry right side greater than left ABDOMEN: Soft, nontender. No guarding or rebound. EXTREMITIES: No cyanosis, clubbing or edema. NEUROLOGIC: Generalized weakness. No focal deficits Vent Setting Ventilator Support Mode: AC Fraction of Inspired Oxygen pe: 30 Positive End Expiratory Pressu: 5.0 Results/Medications Result Diagram: 08/23/18 0440 08/23/18 0440 Results 24 hrs Laboratory Tests Test 08/22/18 12:28 08/22/18 17:10 08/22/18 18:11 08/22/18 20:13 Bedside Glucose 81 76 90 Creatine Kinase 55 Creatine Kinase 34.0 Index Creatinine Kinase MB 18.70 H (Mass) Troponin I 2.450 *H Test 08/23/18 01:23 08/23/18 04:37 08/23/18 04:40 08/23/18 09:17 Bedside Glucose 104 106 113 White Blood Count 13.9 H Red Blood Count 3.52 L Hemoglobin 9.8 L Hematocrit 31.3 L Mean Corpuscular 88.9 Volume Mean Corpuscular 27.8 L Hemoglobin Mean Corpuscular 31.3 L Hemoglobin Concent Red Cell 17.7 H Distribution Width Platelet Count 601 H Mean Platelet Volume 9.7 Immature 1.100 H Granulocytes % Neutrophils % 70.0 Lymphocytes % 12.9 L Monocytes % 13.2 H Eosinophils % 2.4 Basophils % 0.4 Nucleated Red Blood 0.9 H Cells % Immature 0.160 H Granulocytes # Neutrophils # 9.8 H Lymphocytes # 1.8 Monocytes # 1.8 H Eosinophils # 0.3 Basophils # 0.1 Nucleated Red Blood 0.1 H Cells # Sodium Level 142 Potassium Level 3.8 Chloride Level 117 H Carbon Dioxide Level 17 L Anion Gap 8 Blood Urea Nitrogen 39 H Creatinine 1.47 H Est Glomerular 35 L Filtrat Rate mL/min Glucose Level 109 Calcium Level 8.3 L Phosphorus Level 3.5 Magnesium Level 2.7 H Creatine Kinase 48 Creatine Kinase 44.4 Index Creatinine Kinase MB 21.30 H (Mass) Troponin I 2.530 *H Medications Current Medications IV Flush (NS 3 ml) 3 ml PER PROTOCOL IV Last administered on 08/05/18 09:07; Admin Dose 3 ML; Start 07/29/18 at 06:30 Ondansetron HCl (Zofran Inj) 4 mg Q6H PRN IV NAUSEA/VOMITING Last administered on 08/18/18 18:34; Admin Dose 4 MG; Start 07/29/18 at 06:30 Acetaminophen/ Hydrocodone Bitart ([place] (5/325)) 1 tab Q6H PRN PO .MOD PAIN 4- 6 Last administered on 08/19/18 03:42; Admin Dose 1 TAB; Start 07/29/18 at 06:30 Enoxaparin Sodium (Lovenox) 30 mg DAILY SC Last administered on 08/21/18 08:50; Admin Dose 30 MG; Start 07/29/18 at 09:00 Diagnostic Test (Pha) (Accu-Chek) 1 ea 02 XX Last administered on 08/18/18 02:00; Admin Dose 1 EA; Start 07/30/18 at 02:00 Acetaminophen (Tylenol Tab) 650 mg Q6H PRN PO .PAIN 1-3 OR TEMP Last administered on 08/17/18 05:46; Admin Dose 650 MG; Start 07/29/18 at 07:00 Eye Lubricant (Akwa Oint) 1 applic Q1H PRN BOTH EYES DRY EYES; Start 07/29/18 at 08:00 Aspirin (Halfprin) 81 mg DAILY PO Last administered on 08/23/18at 09:03; Admin Dose 81 MG; Start 07/29/18 at 09:00 Atorvastatin Calcium (Lipitor) 20 mg QHS PO Last administered on 08/22/18at 20:19; Admin Dose 20 MG; Start 07/29/18 at 21:00 Clopidogrel Bisulfate (plaVIX) 75 mg DAILY PO Last administered on 08/23/18 09:08; Admin Dose 75 MG; Start 07/29/18 at 09:00 Cyanocobalamin (Vitamin B12) 50 mcg DAILY PO Last administered on 08/23/18 09:03; Admin Dose 50 MCG; Start 07/29/18 at 09:00 Levothyroxine Sodium (Synthroid) 50 mcg BEFORE BREAKFAST PO Last administered on 08/20/18at 06:01; Admin Dose 50 MCG; Start 07/29/18 at 07:00 Metoprolol Succinate (Toprol Xl) 25 mg BID PO Last administered on 08/18/18 20:26; Admin Dose 25 MG; Start 07/29/18 at 09:00; Status Hold Polyethyl Glycol/ Propylene Glycol (Systane 0.3-0.4% Eye Drops) 1 drop Q4H PRN BOTH EYES DRY EYES; Start 07/29/18 at 08:00 Albuterol (Ventolin Hfa) 2 puff Q4H RESP THERAPY PRN INH WHEEZING; Start 07/29/18 at 09:00 Miscellaneous Information 1 ea NOTE XX ; Start 07/29/18 at 07:00 Glucose (Glutose) 15 gm Q15M PRN PO DECREASED GLUCOSE; Start 07/29/18 at 07:00 Glucose (Glutose) 22.5 gm Q15M PRN PO DECREASED GLUCOSE; Start 07/29/18 at 07:00 Dextrose (D50w Syringe) 25 ml Q15M PRN IV DECREASED GLUCOSE; Start 07/29/18 at 07:00 Dextrose (D50w Syringe) 50 ml Q15M PRN IV DECREASED GLUCOSE; Start 07/29/18 at 07:00 Glucagon (Glucagen) 1 mg Q15M PRN IM DECREASED GLUCOSE; Start 07/29/18 at 07:00 Glucose (Glutose) 15 gm Q15M PRN BUCCAL DECREASED GLUCOSE; Start 07/29/18 at 07:00 Alprazolam (Xanax) 0.25 mg Q8H PRN PO ANXIETY Last administered on 08/19/18 00:10; Admin Dose 0.25 MG; Start 07/29/18 at 12:30 Polyethylene Glycol (Miralax) 17 gm DAILY PO Last administered on 08/23/18 09:03; Admin Dose 17 GM; Start 07/29/18 at 12:30 Docusate Sodium (Colace) 100 mg BID PO Last administered on 08/23/18 09:03; Admin Dose 100 MG; Start 07/31/18 at 21:00 Magnesium Hydroxide (Milk Of Mag) 30 ml Q12H PRN PO STOMACH UPSET/CRAMPING Last administered on 07/31/18 21:28; Admin Dose 30 ML; Start 07/31/18 at 20:00 Al Hydrox/Mg Hydrox/Simethicone (Mag-Al Plus) 30 ml Q6H PRN PO GASTROINTESTINAL UPSET Last administered on 08/16/18 23:45; Admin Dose 30 ML; Start 08/03/18 at 17:30 Insulin Glargine (Lantus) 8 units DAILY@2000 SC Last administered on 08/22/18 20:31; Admin Dose 8 UNITS; Start 08/09/18 at 20:00 Albuterol/ Ipratropium (Duoneb) 3 ml Q2H RESP THERAPY PRN HHN sob Last administered on 08/19/18 03:28; Admin Dose 3 ML; Start 08/14/18 at 12:00 Diltiazem HCl (Cardizem Iv) 5 mg Q4 PRN IV HR>70 for Cardiac CTA Last administered on 08/19/18 03:50; Admin Dose 5 MG; Start 08/17/18 at 11:30 Lorazepam (Ativan) 1 mg Q8H PRN IV ANXIETY Last administered on 08/20/18 12:39; Admin Dose 1 MG; Start 08/17/18 at 15:30 Epoetin Glenn-epbx (Retacrit (Non-Esrd)) 20,000 unit TuThSa@1700 SC Last administered on 08/21/18 16:15; Admin Dose 20,000 UNIT; Start 08/18/18 at 17:00 Simethicone (Mylicon) 160 mg Q6H PRN PO DISTENSION/GAS/BLOATING Last administered on 08/18/18 08:49; Admin Dose 160 MG; Start 08/17/18 at 20:00 Propofol 100 ml @ 1.568 mls/ hr Q12H IV Last administered on 08/22/18at 20:21; Admin Dose 6.272 MLS/HR; Start 08/19/18 at 09:30 Norepinephrine 250 ml @ 1.875 mls/ hr TITRATE IV Last administered on 08/20/18 08:57; Admin Dose 9.375 MLS/HR; Start 08/19/18 at 10:30 Insulin Aspart (Novolog Insulin Pen) NOVOLOG *MODERATE* ALGORI... Q4 SC Last administered on 08/21/18 01:38; Admin Dose 2 UNIT; Start 08/20/18 at 01:00 Lansoprazole (Prevacid) 30 mg DAILY@06 NGT ; Start 08/21/18 at 06:00 Piperacillin Sod/ Tazobactam Sod 100 ml @ 200 mls/hr Q8 IVPB Last administered on 08/23/18 05:34; Admin Dose 200 MLS/HR; Start 08/22/18 at 22:00 Dextrose/Sodium Chloride 1,000 ml @ 50 mls/hr Q20H IV Last administered on 08/23/18 01:23; Admin Dose 50 MLS/HR; Start 08/23/18 at 01:30 Assessment/Plan Hospital Course (Demo Recall) Assessment 1. Status post cardiopulmonary arrest 2. Encephalopathy possibly toxic metabolic 3. Septic shock 4. Recurrent right pleural effusion probably metastatic in nature 5. Metastatic uterine cancer Plan 1. Continue mechanical ventilation, currently patient not able to extubate from mechanical ventilation. 2. Right Pleurx catheter for recurrent pleural effusion scheduled for today. 3. Decrease vasopressors as tolerated 4. Overall prognosis very poor patient may not be able to be liberated from mechanical ventilation. Appreciate palliative care recommendations. Critical care time 40 minutes FARHAN VALENTINO MD, [facility] Aug 23, 2018 10:04
--- NOTE | 2018-08-23 11:02 | CONS ---
Assessment/Plan Assessment/Plan Hospital Course (Demo Recall) IMP: 1.Preop-neg trop multiple times. NL EF by echo. Lexiscan with possible distal anterior ischemia. NL EF. Now with positive troponin's s/p cardiopulmonary arrest 2.abnl ecg-ECG today with inferior ST elevation but with normal concavity and Q's isolated to lead 3 .. NL EF by echo this admit. multiple negative troponins and no chest pain prior to arrest 3.Uterine cancer 4.DM 5.Hoth-resolved off of pressors 6.HL 7.PLeural effusion-L sided large, malignant by cytology 8. Resp failure s/p intubation 9. NSTEMI-likely type 2 demand infarct Recc -Now in ICU s/p cardiopulmonary arrest overnight -Continue asa/plavix -Holding BB but likely ok to resume if BP remains stable -trend cardiac enzymes -Resume lovenox s/p pleur-x catheter -ongoing renal f/u -follow BS closely -if patient is to have debulking surgery will require LHC prior to surgery given now NSTEMI and abnl stress test -ongoing family discussion avout direction of care Consultation Date/Type/Reason Admit Date/Time Jul 29, 2018 at 06:16 Initial Consult Date 08/10/18 Type of Consult Cardiology Reason for Consultation nstemi Requesting Provider: SANDI MURDOCK NP Date/Time of Note DATE: 08/23/18 TIME: 10:56 Exam/Review of Systems Vital Signs Vitals Vital Signs Date Temp Pulse Resp B/P (MAP) Pulse Ox O2 O2 Flow FiO2 Time Delivery Rate 08/23/18 82 08:00 08/23/18 21 114/64 98 Mechanical 07:00 (81) Ventilator 08/23/18 30 05:30 08/23/18 96.4 04:00 08/19/18 6.0 07:26 Intake and Output 08/22/18 08/22/18 08/23/18 1515:00 23:00 07:00 IntakeIntake Total 476.736 ml 642.676 ml 430.176 ml OutputOutput Total 175 ml 125 ml 110 ml BalanceBalance 301.736 ml 517.676 ml 320.176 ml Exam Exam Review of Systems: CONSTITUTIONAL: No fevers, chills. PULMONARY: No sob CARDIOVASCULAR: No chest pain/palpitations GASTROINTESTINAL: No nausea/vomiting. GENITOURINARY: No hematuria/dysuria. MUSCULOSKELETAL: No myagias/arthalgias. PSYCHIATRIC: The patient denies depression. NEUROLOGIC: No weakness Constitutional: other (sedated) Psych: no complaints Head: normocephalic ENMT: intubated Neck: supple, jvd (9 cm water) Respiratory: diminished breath sounds (at bases/B) Cardiovascular: regular rate and rhythm Gastrointestinal: soft, non-tender Musculoskeletal: muscle weakness (generalized) Extremities: edema (none) Neurological: other (No focal deficits) Labs Result Diagram: 08/23/18 0440 08/23/18 0440 Results 24hrs Laboratory Tests Test 08/22/18 12:28 08/22/18 17:10 08/22/18 18:11 08/22/18 20:13 Bedside Glucose 81 76 90 Creatine Kinase 55 Creatine Kinase 34.0 Index Creatinine Kinase MB 18.70 H (Mass) Troponin I 2.450 *H Test 08/23/18 01:23 08/23/18 04:37 08/23/18 04:40 08/23/18 09:17 Bedside Glucose 104 106 113 White Blood Count 13.9 H Red Blood Count 3.52 L Hemoglobin 9.8 L Hematocrit 31.3 L Mean Corpuscular 88.9 Volume Mean Corpuscular 27.8 L Hemoglobin Mean Corpuscular 31.3 L Hemoglobin Concent Red Cell 17.7 H Distribution Width Platelet Count 601 H Mean Platelet Volume 9.7 Immature 1.100 H Granulocytes % Neutrophils % 70.0 Lymphocytes % 12.9 L Monocytes % 13.2 H Eosinophils % 2.4 Basophils % 0.4 Nucleated Red Blood 0.9 H Cells % Immature 0.160 H Granulocytes # Neutrophils # 9.8 H Lymphocytes # 1.8 Monocytes # 1.8 H Eosinophils # 0.3 Basophils # 0.1 Nucleated Red Blood 0.1 H Cells # Sodium Level 142 Potassium Level 3.8 Chloride Level 117 H Carbon Dioxide Level 17 L Anion Gap 8 Blood Urea Nitrogen 39 H Creatinine 1.47 H Est Glomerular 35 L Filtrat Rate mL/min Glucose Level 109 Calcium Level 8.3 L Phosphorus Level 3.5 Magnesium Level 2.7 H Creatine Kinase 48 Creatine Kinase 44.4 Index Creatinine Kinase MB 21.30 H (Mass) Troponin I 2.530 *H Medications Medications Current Medications IV Flush (NS 3 ml) 3 ml PER PROTOCOL IV Last administered on 08/05/18 09:07; Admin Dose 3 ML; Start 07/29/18 at 06:30 Ondansetron HCl (Zofran Inj) 4 mg Q6H PRN IV NAUSEA/VOMITING Last administered on 08/18/18 18:34; Admin Dose 4 MG; Start 07/29/18 at 06:30 Acetaminophen/ Hydrocodone Bitart ([place] (5/325)) 1 tab Q6H PRN PO .MOD PAIN 4- 6 Last administered on 08/19/18 03:42; Admin Dose 1 TAB; Start 07/29/18 at 06:30 Enoxaparin Sodium (Lovenox) 30 mg DAILY SC Last administered on 08/21/18 08:50; Admin Dose 30 MG; Start 07/29/18 at 09:00 Diagnostic Test (Pha) (Accu-Chek) 1 ea 02 XX Last administered on 08/18/18 02:00; Admin Dose 1 EA; Start 07/30/18 at 02:00 Acetaminophen (Tylenol Tab) 650 mg Q6H PRN PO .PAIN 1-3 OR TEMP Last administered on 08/17/18 05:46; Admin Dose 650 MG; Start 07/29/18 at 07:00 Eye Lubricant (Akwa Oint) 1 applic Q1H PRN BOTH EYES DRY EYES; Start 07/29/18 at 08:00 Aspirin (Halfprin) 81 mg DAILY PO Last administered on 08/23/18 09:03; Admin Dose 81 MG; Start 07/29/18 at 09:00 Atorvastatin Calcium (Lipitor) 20 mg QHS PO Last administered on 08/22/18 20:19; Admin Dose 20 MG; Start 07/29/18 at 21:00 Clopidogrel Bisulfate (plaVIX) 75 mg DAILY PO Last administered on 08/23/18 09:08; Admin Dose 75 MG; Start 07/29/18 at 09:00 Cyanocobalamin (Vitamin B12) 50 mcg DAILY PO Last administered on 08/23/18 09:03; Admin Dose 50 MCG; Start 07/29/18 at 09:00 Levothyroxine Sodium (Synthroid) 50 mcg BEFORE BREAKFAST PO Last administered on 08/20/18 06:01; Admin Dose 50 MCG; Start 07/29/18 at 07:00 Metoprolol Succinate (Toprol Xl) 25 mg BID PO Last administered on 08/18/18at 20:26; Admin Dose 25 MG; Start 07/29/18 at 09:00; Status Hold Polyethyl Glycol/ Propylene Glycol (Systane 0.3-0.4% Eye Drops) 1 drop Q4H PRN BOTH EYES DRY EYES; Start 07/29/18 at 08:00 Albuterol (Ventolin Hfa) 2 puff Q4H RESP THERAPY PRN INH WHEEZING; Start 07/29/18 at 09:00 Miscellaneous Information 1 ea NOTE XX ; Start 07/29/18 at 07:00 Glucose (Glutose) 15 gm Q15M PRN PO DECREASED GLUCOSE; Start 07/29/18 at 07:00 Glucose (Glutose) 22.5 gm Q15M PRN PO DECREASED GLUCOSE; Start 07/29/18 at 07:00 Dextrose (D50w Syringe) 25 ml Q15M PRN IV DECREASED GLUCOSE; Start 07/29/18 at 07:00 Dextrose (D50w Syringe) 50 ml Q15M PRN IV DECREASED GLUCOSE; Start 07/29/18 at 07:00 Glucagon (Glucagen) 1 mg Q15M PRN IM DECREASED GLUCOSE; Start 07/29/18 at 07:00 Glucose (Glutose) 15 gm Q15M PRN BUCCAL DECREASED GLUCOSE; Start 07/29/18 at 07:00 Alprazolam (Xanax) 0.25 mg Q8H PRN PO ANXIETY Last administered on 08/19/18at 00:10; Admin Dose 0.25 MG; Start 07/29/18 at 12:30 Polyethylene Glycol (Miralax) 17 gm DAILY PO Last administered on 08/23/18at 09:03; Admin Dose 17 GM; Start 07/29/18 at 12:30 Docusate Sodium (Colace) 100 mg BID PO Last administered on 08/23/18at 09:03; Admin Dose 100 MG; Start 07/31/18 at 21:00 Magnesium Hydroxide (Milk Of Mag) 30 ml Q12H PRN PO STOMACH UPSET/CRAMPING Last administered on 07/31/18at 21:28; Admin Dose 30 ML; Start 07/31/18 at 20:00 Al Hydrox/Mg Hydrox/Simethicone (Mag-Al Plus) 30 ml Q6H PRN PO GASTROINTESTINAL UPSET Last administered on 08/16/18 23:45; Admin Dose 30 ML; Start 08/03/18 at 17:30 Insulin Glargine (Lantus) 8 units DAILY@2000 SC Last administered on 08/22/18 20:31; Admin Dose 8 UNITS; Start 08/09/18 at 20:00 Albuterol/ Ipratropium (Duoneb) 3 ml Q2H RESP THERAPY PRN HHN sob Last administered on 08/19/18 03:28; Admin Dose 3 ML; Start 08/14/18 at 12:00 Diltiazem HCl (Cardizem Iv) 5 mg Q4 PRN IV HR>70 for Cardiac CTA Last administered on 08/19/18 03:50; Admin Dose 5 MG; Start 08/17/18 at 11:30 Lorazepam (Ativan) 1 mg Q8H PRN IV ANXIETY Last administered on 08/20/18 12:39; Admin Dose 1 MG; Start 08/17/18 at 15:30 Epoetin Glenn-epbx (Retacrit (Non-Esrd)) 20,000 unit TuThSa@1700 SC Last administered on 08/21/18 16:15; Admin Dose 20,000 UNIT; Start 08/18/18 at 17:00 Simethicone (Mylicon) 160 mg Q6H PRN PO DISTENSION/GAS/BLOATING Last administered on 08/18/18 08:49; Admin Dose 160 MG; Start 08/17/18 at 20:00 Propofol 100 ml @ 1.568 mls/ hr Q12H IV Last administered on 08/22/18 20:21; Admin Dose 6.272 MLS/HR; Start 08/19/18 at 09:30 Norepinephrine 250 ml @ 1.875 mls/ hr TITRATE IV Last administered on 08/20/18 08:57; Admin Dose 9.375 MLS/HR; Start 08/19/18 at 10:30 Insulin Aspart (Novolog Insulin Pen) NOVOLOG *MODERATE* ALGORI... Q4 SC Last administered on 08/21/18 01:38; Admin Dose 2 UNIT; Start 08/20/18 at 01:00 Lansoprazole (Prevacid) 30 mg DAILY@06 NGT ; Start 08/21/18 at 06:00 Piperacillin Sod/ Tazobactam Sod 100 ml @ 200 mls/hr Q8 IVPB Last administered on 08/23/18at 05:34; Admin Dose 200 MLS/HR; Start 08/22/18 at 22:00 Dextrose/Sodium Chloride 1,000 ml @ 50 mls/hr Q20H IV Last administered on 08/23/18at 01:23; Admin Dose 50 MLS/HR; Start 08/23/18 at 01:30 TAN LIRIANO Aug 23, 2018 11:02
--- NOTE | 2018-08-23 12:08 | CONS ---
Assessment/Plan Assessment/Plan Hospital Course (Demo Recall) No acute changes overnight patient is off sedation looks comfortable no fevers overnight T-max 99.6. WBC 13.9 H&H 9.8 and 31.3 platelets 601 neutrophils 78 BUN 39 creatinine 1.47 Chest x-ray this morning revealed stable to slightly increased large right pleural effusion Antimicrobials: Zosyn Indwelling: Endotracheal tube NG tube Stafford catheter femoral triple-lumen catheter Physical examination: Well-developed fragile elderly woman who is in no distress. Head atraumatic normocephalic sclera nonicteric vehicle mucosa dry neck is supple chest rise symmetrical breath sounds diminished bases heart: S1- S2 abdomen soft bowel sounds hypoactive extremities with trace edema Assessment: 1. Shock status post asystolic cardiopulmonary arrest 2. Respiratory failure 3. Persistent right pleural effusion likely malignant, possibly parapneumonic 4. 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 Acute kidney insufficiency 6. Diabetes 7. Pneumonia 8. Right mastoiditis Plan: Remains unchanged, continue antibiotics, follow neurology recommendations, plan for right Pleurx Consultation Date/Type/Reason Admit Date/Time Jul 29, 2018 at 06:16 Initial Consult Date 08/15/18 Type of Consult id Requesting Provider: SANDI MURDOCK NP Date/Time of Note DATE: 08/23/18 TIME: 12:07 Exam/Review of Systems Exam Vitals Vital Signs Date Temp Pulse Resp B/P (MAP) Pulse Ox O2 O2 Flow FiO2 Time Delivery Rate 08/23/18 89 8 116/58 98 11:30 (77) 08/23/18 Mechanical 11:00 Ventilator 08/23/18 98.3 08:00 08/23/18 30 05:30 08/19/18 6.0 07:26 Intake and Output 08/22/18 08/22/18 08/23/18 1414:59 22:59 06:59 IntakeIntake Total 473.804 ml 562.676 ml 510.176 ml OutputOutput Total 180 ml 140 ml 115 ml BalanceBalance 293.804 ml 422.676 ml 395.176 ml Results Result Diagram: 08/23/180 08/23/180 Results 24hrs Laboratory Tests Test 08/22/18 12:28 08/22/18 17:10 08/22/18 18:11 08/22/18 20:13 Bedside Glucose 81 76 90 Creatine Kinase 55 Creatine Kinase 34.0 Index Creatinine Kinase MB 18.70 H (Mass) Troponin I 2.450 *H Test 08/23/18 01:23 08/23/18 04:37 08/23/18 04:40 08/23/18 09:17 Bedside Glucose 104 106 113 White Blood Count 13.9 H Red Blood Count 3.52 L Hemoglobin 9.8 L Hematocrit 31.3 L Mean Corpuscular 88.9 Volume Mean Corpuscular 27.8 L Hemoglobin Mean Corpuscular 31.3 L Hemoglobin Concent Red Cell 17.7 H Distribution Width Platelet Count 601 H Mean Platelet Volume 9.7 Immature 1.100 H Granulocytes % Neutrophils % 70.0 Lymphocytes % 12.9 L Monocytes % 13.2 H Eosinophils % 2.4 Basophils % 0.4 Nucleated Red Blood 0.9 H Cells % Immature 0.160 H Granulocytes # Neutrophils # 9.8 H Lymphocytes # 1.8 Monocytes # 1.8 H Eosinophils # 0.3 Basophils # 0.1 Nucleated Red Blood 0.1 H Cells # Sodium Level 142 Potassium Level 3.8 Chloride Level 117 H Carbon Dioxide Level 17 L Anion Gap 8 Blood Urea Nitrogen 39 H Creatinine 1.47 H Est Glomerular 35 L Filtrat Rate mL/min Glucose Level 109 Calcium Level 8.3 L Phosphorus Level 3.5 Magnesium Level 2.7 H Creatine Kinase 48 Creatine Kinase 44.4 Index Creatinine Kinase MB 21.30 H (Mass) Troponin I 2.530 *H Medications Medication Current Medications IV Flush (NS 3 ml) 3 ml PER PROTOCOL IV Last administered on 08/05/18 09:07; Admin Dose 3 ML; Start 07/29/18 at 06:30 Ondansetron HCl (Zofran Inj) 4 mg Q6H PRN IV NAUSEA/VOMITING Last administered on 08/18/18at 18:34; Admin Dose 4 MG; Start 07/29/18 at 06:30 Acetaminophen/ Hydrocodone Bitart ([place] (5/325)) 1 tab Q6H PRN PO .MOD PAIN 4- 6 Last administered on 08/19/18 03:42; Admin Dose 1 TAB; Start 07/29/18 at 06:30 Diagnostic Test (Pha) (Accu-Chek) 1 ea 02 XX Last administered on 08/18/18at 02:00; Admin Dose 1 EA; Start 07/30/18 at 02:00 Acetaminophen (Tylenol Tab) 650 mg Q6H PRN PO .PAIN 1-3 OR TEMP Last adm inistered on 08/17/18at 05:46; Admin Dose 650 MG; Start 07/29/18 at 07:00 Eye Lubricant (Akwa Oint) 1 applic Q1H PRN BOTH EYES DRY EYES; Start 07/29/18 at 08:00 Aspirin (Halfprin) 81 mg DAILY PO Last administered on 08/23/18at 09:03; Admin Dose 81 MG; Start 07/29/18 at 09:00 Atorvastatin Calcium (Lipitor) 20 mg QHS PO Last administered on 08/22/18at 20:19; Admin Dose 20 MG; Start 07/29/18 at 21:00 Clopidogrel Bisulfate (plaVIX) 75 mg DAILY PO Last administered on 08/23/18at 09:08; Admin Dose 75 MG; Start 07/29/18 at 09:00 Cyanocobalamin (Vitamin B12) 50 mcg DAILY PO Last administered on 08/23/18at 09:03; Admin Dose 50 MCG; Start 07/29/18 at 09:00 Levothyroxine Sodium (Synthroid) 50 mcg BEFORE BREAKFAST PO Last administered on 08/20/18at 06:01; Admin Dose 50 MCG; Start 07/29/18 at 07:00 Polyethyl Glycol/ Propylene Glycol (Systane 0.3-0.4% Eye Drops) 1 drop Q4H PRN BOTH EYES DRY EYES; Start 07/29/18 at 08:00 Albuterol (Ventolin Hfa) 2 puff Q4H RESP THERAPY PRN INH WHEEZING; Start 07/29/18 at 09:00 Miscellaneous Information 1 ea NOTE XX ; Start 07/29/18 at 07:00 Glucose (Glutose) 15 gm Q15M PRN PO DECREASED GLUCOSE; Start 07/29/18 at 07:00 Glucose (Glutose) 22.5 gm Q15M PRN PO DECREASED GLUCOSE; Start 07/29/18 at 07:00 Dextrose (D50w Syringe) 25 ml Q15M PRN IV DECREASED GLUCOSE; Start 07/29/18 at 07:00 Dextrose (D50w Syringe) 50 ml Q15M PRN IV DECREASED GLUCOSE; Start 07/29/18 at 07:00 Glucagon (Glucagen) 1 mg Q15M PRN IM DECREASED GLUCOSE; Start 07/29/18 at 07:00 Glucose (Glutose) 15 gm Q15M PRN BUCCAL DECREASED GLUCOSE; Start 07/29/18 at 07:00 Alprazolam (Xanax) 0.25 mg Q8H PRN PO ANXIETY Last administered on 08/19/18 00:10; Admin Dose 0.25 MG; Start 07/29/18 at 12:30 Polyethylene Glycol (Miralax) 17 gm DAILY PO Last administered on 08/23/18 09:03; Admin Dose 17 GM; Start 07/29/18 at 12:30 Docusate Sodium (Colace) 100 mg BID PO Last administered on 08/23/18 09:03; Admin Dose 100 MG; Start 07/31/18 at 21:00 Magnesium Hydroxide (Milk Of Mag) 30 ml Q12H PRN PO STOMACH UPSET/CRAMPING Last administered on 07/31/18 21:28; Admin Dose 30 ML; Start 07/31/18 at 20:00 Al Hydrox/Mg Hydrox/Simethicone (Mag-Al Plus) 30 ml Q6H PRN PO GASTROINTESTINAL UPSET Last administered on 08/16/18 23:45; Admin Dose 30 ML; Start 08/03/18 at 17:30 Insulin Glargine (Lantus) 8 units DAILY@2000 SC Last administered on 08/22/18 20:31; Admin Dose 8 UNITS; Start 08/09/18 at 20:00 Albuterol/ Ipratropium (Duoneb) 3 ml Q2H RESP THERAPY PRN HHN sob Last administered on 08/19/18 03:28; Admin Dose 3 ML; Start 08/14/18 at 12:00 Diltiazem HCl (Cardizem Iv) 5 mg Q4 PRN IV HR>70 for Cardiac CTA Last administered on 08/19/18 03:50; Admin Dose 5 MG; Start 08/17/18 at 11:30 Lorazepam (Ativan) 1 mg Q8H PRN IV ANXIETY Last administered on 08/20/18 12:39; Admin Dose 1 MG; Start 08/17/18 at 15:30 Epoetin Glenn-epbx (Retacrit (Non-Esrd)) 20,000 unit TuThSa@1700 SC Last administered on 6/25/19at 16:15; Admin Dose 20,000 UNIT; Start 08/18/18 at 17:00 Simethicone (Mylicon) 160 mg Q6H PRN PO DISTENSION/GAS/BLOATING Last administered on 08/18/18at 08:49; Admin Dose 160 MG; Start 08/17/18 at 20:00 Propofol 100 ml @ 1.568 mls/ hr Q12H IV Last administered on 08/22/18at 20:21; Admin Dose 6.272 MLS/HR; Start 08/19/18 at 09:30 Norepinephrine 250 ml @ 1.875 mls/ hr TITRATE IV Last administered on 08/20/18at 08:57; Admin Dose 9.375 MLS/HR; Start 08/19/18 at 10:30 Insulin Aspart (Novolog Insulin Pen) NOVOLOG *MODERATE* ALGORI... Q4 SC Last administered on 08/21/18at 01:38; Admin Dose 2 UNIT; Start 08/20/18 at 01:00 Lansoprazole (Prevacid) 30 mg DAILY@06 NGT ; Start 08/21/18 at 06:00 Piperacillin Sod/ Tazobactam Sod 100 ml @ 200 mls/hr Q8 IVPB Last administered on 08/23/18at 05:34; Admin Dose 200 MLS/HR; Start 08/22/18 at 22:00 Dextrose/Sodium Chloride 1,000 ml @ 50 mls/hr Q20H IV Last administered on 08/23/18at 01:23; Admin Dose 50 MLS/HR; Start 08/23/18 at 01:30 Enoxaparin Sodium (Lovenox) 50 mg DAILY SC ; Start 08/24/18 at 09:00 Metoprolol Tartrate (Lopressor) 25 mg BID PO ; Start 08/23/18 at 21:00 DENISSE THAO NP Aug 23, 2018 12:08
[2018-08-23] MEDS ORDERED: LIDOCAINE 1% (MDV) 20 ML INJ ONE (14:33)
[2018-08-23] MEDS ORDERED: HEPARIN 1000 UNITS/NS (A-LINE) 0 ML ONE (14:33)
--- NOTE | 2018-08-23 16:03 | QN ---
Documentation Comment Pt is off floor for Pleurx per nurse. She also is off pressors but still intubated. No new oncologic suggestions. CBC is alright so no transfusions are needed. TUAN BARRON MD Aug 23, 2018 16:03
--- NOTE | 2018-08-23 16:37 | HPN ---
Date/Time of Note Date/Time of Note DATE: 08/23/18 TIME: 16:37 Interval H&P Admission Note Pt. seen H&P reviewed: No system changes YANET HORNE MD Aug 23, 2018 16:37
--- NOTE | 2018-08-23 17:04 | RADRPT ---
Vent Rate: 89 bpm RR Interval: 672 msec NM Interval: 130 msec QRS Duration: 71 msec QT Interval: 370 msec QTC Interval: 451 msec P-R-T Arcade: 54 - 32 - 235 degrees Sinus rhythm...normal P axis, V-rate 50- 99 Repol abnrm, prob ischemia, anterolateral lds...ST dep, T neg, I aVL V2-V6 Electronically Signed By: Imer Sam
[2018-08-23] MEDS: PROPOFOL 100 ML IV SCH (17:56)
[2018-08-23] MEDS: EPOETIN ALFA-EPBX (NON-ESRD 10,000 UNIT/ML VIAL SC SCH (18:07)
[2018-08-23] MEDS: INSULIN GLARGINE [LANTus] (100 UNITS/ML) SYG SC SCH (20:07)
[2018-08-23] MEDS: ATORVASTATIN 20 MG TAB PO SCH (20:08)
[2018-08-23] MEDS: METOPROLOL 25 MG TAB PO SCH (20:09)
[2018-08-24] VITALS (58 sets, daily range): BP systolic 86–130; BP diastolic 41–78; PULSE 53–82; RESP 9–24
[2018-08-24] MEDS ORDERED: ALTEPLASE (CATHFLO) 2 MG INJ CATHETER ONE (00:30)
[2018-08-24] MEDS: INSULIN ASPART [NOVOLOG] 3 ML PEN SC SCH ×6 (01:00→20:01)
[2018-08-24] MEDS: ACCU-CHEK XX SCH (01:06)
[2018-08-24] MEDS: LANSOPRAZOLE 30 MG CAP NGT SCH (05:11)
[2018-08-24] MEDS: PIPER-TAZO 3.375 GM IV (PMX) 100 ML IVPB SCH ×3 (05:11→22:22)
[2018-08-24] MEDS: PROPOFOL 100 ML IV SCH ×2 (05:59→18:25)
--- NOTE | 2018-08-24 06:35 | EEG ---
EEG NOTE Report Details DATE OF TEST: 08/23/18 HISTORY: The patient is a 68-year-old F who presents with altered mental status s/p cardiac arrest. This EEG is requested to rule out nonconvulsive status epilepticus. SEDATION: None. CONDITIONS OF RECORDING: This EEG was recorded digitally on the [employer]on Circle machine, using the International 10-20 System of electrodes plus anterior temporals and [place]. STATES SAMPLED: Comatose. FINDINGS: The background is grossly symmetric...predominated by polymorphic theta and delta activity. The There is an abundance of EMG artifact throughout. The normal [id number] frequency-amplitude gradient was absent. Photic stimulation does not elicit any definite driving responses or ep ileptiform discharges. Hyperventilation was not performed. No asymmetries, focal abnormalities or epileptiform discharges were seen. IMPRESSION: Abnormal electroencephalogram due to: diffuse slowing. COMMENT: The slowing of the background indicates diffuse cortical dysfunction of nonspecific etiology. GABBY CARDOZA Aug 24, 2018 06:35
[2018-08-24] MEDS: LEVOTHYROXINE 50 MCG TAB PO SCH (07:58)
--- NOTE | 2018-08-24 08:11 | PN ---
DATE: 08/24/2018 SUBJECTIVE: The patient had PleurX catheter placed yesterday with greater than 700 mL output. The p atient remains critically ill, on full ventilatory support. The patient is off pressors. The patien t is pending possible CT scan today. No other events noted. OBJECTIVE: VITAL SIGNS: Blood pressure is 111/49, respirations 18, pulse 65, temperature 98.6. HEENT: Head is normocephalic. NECK: Supple. HEART: Regular rate. LUNGS: Show diminished breath sounds at the base. ABDOMEN: Soft, nontender to palpation. No rebound or guarding. EXTREMITIES: Negative for clubbing, cyanosis. Positive edema. DERMATOLOGIC: No rashes. MUSCULOSKELETAL: No joint effusion. NEUROLOGIC: No change in exam. MEDICATIONS: The patient's medications have been reviewed. LABORATORY DATA: Reviewed. IMAGING STUDIES: Reviewed. ASSESSMENT AND PLAN: 1. Nonoliguric acute kidney injury with previous baseline creatinine of 1.2 to 1.4 mg/dL. Etiology of acute kidney injury is secondary to hemodynamics. Renal function is fluctuating, but overall stab le. We will continue current treatment plan, supportive care, renally dose all medications. We woul d recommend to discontinue IV fluids once the patient resume tube feeding and status post angiogram. 2. Volume overload. Etiology is multifactorial secondary to IV fluids, possible diastolic heart brunilda lure. Continue intermittent diuretic therapy, monitor I's and O's and electrolytes closely. 3. Anemia. Continue to monitor hemoglobin and hematocrit levels. 4. Hypokalemia. Continue to monitor and replete as needed. 5. Mineral bone disorder, monitor calcium and phosphorus levels. 6. Ventilator-dependent respiratory failure. Vent settings and ABG was reviewed. Continue to monit or. Follow up with pulmonary. 7. Pleural effusion, status post PleurX catheter placement. 8. Coronary artery disease. Continue medical management. Follow up with cardiology. The patient h ad abnormal Lexiscan. The patient is pending possible CT angiogram. 9. Non-ST elevation myocardial infarction type 1 versus type 2. Continue to monitor. Follow up wit h Cardiology. 10. Diabetes. Continue current insulin regimen. 11. Hypothyroidism. Continue Synthroid. 12. Status post cardiac arrest. 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 Follow up with Oncology. 14. Sepsis, status post shock. Continue current antibiotic regimen. 15. Acute encephalopathy, etiology is toxic metabolic. Dictated By: JACOB KAUFMAN/EMA Conf#: [id number] DID#: [id number] CC: MARY VILLATORO MD; TAN MAIER MD;*EndCC*
--- NOTE | 2018-08-24 08:15 | CONS ---
Assessment/Plan Assessment/Plan Assessment/Plan (Daily) Probable metastatic uterine cancer Status post cardiac arrest Acute congestive heart failure History of acute kidney injury Altered mental status Sepsis syndrome Overall prognosis very poor I will contact family members to schedule a family conference soon as possible patient is a full code. Consultation Date/Type/Reason Admit Date/Time Jul 29, 2018 at 06:16 Date/Time of Note DATE: 08/24/18 TIME: 08:12 Hx of Present Illness Asked to see this patient in palliative care consultation. This is a 68-year-old female who was admitted to [facility] on July 29, 2018 at that time was admitted with left lower extremity edema and congestive heart failure. She has a history of acute kidney injury not being dialyzed, weight loss peripheral vascular disease was admitted for aggressive diuresis and stabilization of her cardiovascular status. During her hospital course patient had a cardiopulmonary arrest, septic shock and had a thoracentesis which showed probable metastatic uterine cancer. Patient is in the intensive care unit at this time. According medical records her overall prognosis appears to be very poor from a pulmonary standpoint and I have been asked to consult. Unable to obtain Past Medical History Medical History: congestive heart failure, coronary artery disease Home Meds Active Scripts Magnesium Oxide* (Mag-Oxide*) 400 Mg Tablet, 400 MG PO BID for 3 Days, #10 TAB Prov:FERNANDO YANCEY MD 07/08/18 Lactobacillus Rhamnosus GG (Culturelle) 1 Each Capsule, 1 CAP PO BID for 14 Days, #30 CAP Prov:FERNANDO YANCEY MD 07/08/18 Acetaminophen* (Tylenol*) 325 Mg Tablet, 650 MG PO Q6H PRN for .PAIN 1-3 OR TEMP for 10 Days, #10 TAB Prov:FERNANDO YANCEY MD 07/08/18 Lisinopril* (Lisinopril*) 5 Mg Tablet, 2.5 MG PO DAILY for 15 Days, #15 TAB Prov:FERNANDO YANCEY MD 07/08/18 Sulfamethoxazole/Trimethoprim (Sulfamethoxazole-Tmp Ds Tablet) 1 Each Tablet, 1 TAB PO BID for 5 Days, #10 TAB Prov:FERNANDO YANCEY MD 07/08/18 Reported Medications Sodium Bicarbonate* (Sodium Bicarbonate*) 650 Mg Tablet, 650 MG PO TID, TAB 07/05/18 Propylene Glycol-Peg 400 (Systane 0.3-0.4% Eye Drops) 0.3-0.4 % - 30 Ml Drops, 1 DROP BOTH EYES Q4H PRN for DRY EYES, #1 BOTTLE 07/05/18 Pantoprazole* (Protonix*) 40 Mg Tablet.dr, 40 MG PO QAM, TAB 07/05/18 Ondansetron Hcl* (Zofran*) 8 Mg Tablet, 8 MG PO Q6H PRN for NAUSEA AND OR VOMITING, TAB 07/05/18 Metoprolol Succinate* (Toprol XL*) 25 Mg Tab.sr.24h, 25 MG PO BID, #30 TAB 07/05/18 Metformin* (Glucophage*) 500 Mg Tab, 500 MG PO WITH BREAKFAST, #30 TAB 07/05/18 Levothyroxine Sodium* (Synthroid*) 50 Mcg Tablet, 50 MCG PO BEFORE BREAKFAST, #30 TAB 07/05/18 Hydrocodone/Acetaminophen ([place] 5-325 Tablet) 1 Each Tablet, 1 EACH PO Q6 PRN for PAIN, TAB 07/05/18 [place]-3 Fatty Acids/Fish Oil (Fish Oil 1,000 mg Capsule) 1 Each Capsule, 1 EACH PO DAILY, CAP 07/05/18 Cyanocobalamin* (Vitamin B-12*) 50 Mcg Tablet, 50 MCG PO DAILY, TAB 07/05/18 Clopidogrel Bisulfate (Clopidogrel) 75 Mg Tablet, 75 MG PO DAILY, #30 TAB 07/05/18 Atorvastatin Calcium* (Atorvastatin Calcium*) 20 Mg Tablet, 20 MG PO QHS, #30 TAB 07/05/18 Aspirin* (Aspirin* EC) 81 Mg Tablet.dr, 81 MG PO DAILY, TAB 07/05/18 Artificial Tears* (Akwa Oint*) 3.5 Gm Oint, 1 APPLIC BOTH EYES Q1H PRN for DRY EYES, #1 TUB 07/05/18 Albuterol Sulfate (Proair Respiclick) 90 Mcg Aer.pow.ba, 2 PUFFS INHALATION Q4 PRN for WHEEZING, BOTTLE 07/05/18 Medications Current Medications IV Flush (NS 3 ml) 3 ml PER PROTOCOL IV Last administered on 08/05/18at 09:07; Admin Dose 3 ML; Start 07/29/18 at 06:30 Ondansetron HCl (Zofran Inj) 4 mg Q6H PRN IV NAUSEA/VOMITING Last administered on 08/18/18 18:34; Admin Dose 4 MG; Start 07/29/18 at 06:30 Acetaminophen/ Hydrocodone Bitart ([place] (5/325)) 1 tab Q6H PRN PO .MOD PAIN 4- 6 Last administered on 08/19/18 03:42; Admin Dose 1 TAB; Start 07/29/18 at 06:30 Diagnostic Test (Pha) (Accu-Chek) 1 ea 02 XX Last administered on 08/18/18 02:00; Admin Dose 1 EA; Start 07/30/18 at 02:00 Acetaminophen (Tylenol Tab) 650 mg Q6H PRN PO .PAIN 1-3 OR TEMP Last admi nistered on 08/17/18 05:46; Admin Dose 650 MG; Start 07/29/18 at 07:00 Eye Lubricant (Akwa Oint) 1 applic Q1H PRN BOTH EYES DRY EYES; Start 07/29/18 at 08:00 Aspirin (Halfprin) 81 mg DAILY PO Last administered on 08/23/18 09:03; Admin Dose 81 MG; Start 07/29/18 at 09:00 Atorvastatin Calcium (Lipitor) 20 mg QHS PO Last administered on 08/23/18 20:08; Admin Dose 20 MG; Start 07/29/18 at 21:00 Clopidogrel Bisulfate (plaVIX) 75 mg DAILY PO Last administered on 08/23/18 09:08; Admin Dose 75 MG; Start 07/29/18 at 09:00 Cyanocobalamin (Vitamin B12) 50 mcg DAILY PO Last administered on 08/23/18 0 9:03; Admin Dose 50 MCG; Start 07/29/18 at 09:00 Levothyroxine Sodium (Synthroid) 50 mcg BEFORE BREAKFAST PO Last administered on 08/20/18 06:01; Admin Dose 50 MCG; Start 07/29/18 at 07:00 Polyethyl Glycol/ Propylene Glycol (Systane 0.3-0.4% Eye Drops) 1 drop Q4H PRN BOTH EYES DRY EYES; Start 07/29/18 at 08:00 Albuterol (Ventolin Hfa) 2 puff Q4H RESP THERAPY PRN INH WHEEZING; Start 07/29/18 at 09:00 Miscellaneous Information 1 ea NOTE XX ; Start 07/29/18 at 07:00 Glucose (Glutose) 15 gm Q15M PRN PO DECREASED GLUCOSE; Start 07/29/18 at 07:00 Glucose (Glutose) 22.5 gm Q15M PRN PO DECREASED GLUCOSE; Start 07/29/18 at 07:00 Dextrose (D50w Syringe) 25 ml Q15M PRN IV DECREASED GLUCOSE; Start 07/29/18 at 07:00 Dextrose (D50w Syringe) 50 ml Q15M PRN IV DECREASED GLUCOSE; Start 07/29/18 at 07:00 Glucagon (Glucagen) 1 mg Q15M PRN IM DECREASED GLUCOSE; Start 07/29/18 at 07:00 Glucose (Glutose) 15 gm Q15M PRN BUCCAL DECREASED GLUCOSE; Start 07/29/18 at 07:00 Alprazolam (Xanax) 0.25 mg Q8H PRN PO ANXIETY Last administered on 08/19/18at 00:10; Admin Dose 0.25 MG; Start 07/29/18 at 12:30 Polyethylene Glycol (Miralax) 17 gm DAILY PO Last administered on 08/23/18at 09:03; Admin Dose 17 GM; Start 07/29/18 at 12:30 Docusate Sodium (Colace) 100 mg BID PO Last administered on 08/23/18at 20:08; Admin Dose 100 MG; Start 07/31/18 at 21:00 Magnesium Hydroxide (Milk Of Mag) 30 ml Q12H PRN PO STOMACH UPSET/CRAMPING Last administered on 07/31/18at 21:28; Admin Dose 30 ML; Start 07/31/18 at 20:00 Al Hydrox/Mg Hydrox/Simethicone (Mag-Al Plus) 30 ml Q6H PRN PO GASTROINTESTINAL UPSET Last administered on 08/16/18at 23:45; Admin Dose 30 ML; Start 08/03/18 at 17:30 Insulin Glargine (Lantus) 8 units DAILY@2000 SC Last administered on 08/23/18at 20:07; Admin Dose 8 UNITS; Start 08/09/18 at 20:00 Albuterol/ Ipratropium (Duoneb) 3 ml Q2H RESP THERAPY PRN HHN sob Last administered on 08/19/18at 03:28; Admin Dose 3 ML; Start 08/14/18 at 12:00 Diltiazem HCl (Cardizem Iv) 5 mg Q4 PRN IV HR>70 for Cardiac CTA Last administered on 08/19/18at 03:50; Admin Dose 5 MG; Start 08/17/18 at 11:30 Lorazepam (Ativan) 1 mg Q8H PRN IV ANXIETY Last administered on 08/20/18at 12:39; Admin Dose 1 MG; Start 08/17/18 at 15:30 Epoetin Glenn-epbx (Retacrit (Non-Esrd)) 20,000 unit TuThSa@1700 SC Last administered on 08/23/18 18:07; Admin Dose 20,000 UNIT; Start 08/18/18 at 17:00 Simethicone (Mylicon) 160 mg Q6H PRN PO DISTENSION/GAS/BLOATING Last administered on 08/18/18 08:49; Admin Dose 160 MG; Start 08/17/18 at 20:00 Propofol 100 ml @ 1.568 mls/ hr Q12H IV Last administered on 08/24/18at 05:59; Admin Dose 6.272 MLS/HR; Start 08/19/18 at 09:30 Norepinephrine 250 ml @ 1.875 mls/ hr TITRATE IV Last administered on 08/20/18 08:57; Admin Dose 9.375 MLS/HR; Start 08/19/18 at 10:30 Insulin Aspart (Novolog Insulin Pen) NOVOLOG *MODERATE* ALGORI... Q4 SC Last administered on 08/21/18 01:38; Admin Dose 2 UNIT; Start 08/20/18 at 01:00 Lansoprazole (Prevacid) 30 mg DAILY@06 NGT ; Start 08/21/18 at 06:00 Piperacillin Sod/ Tazobactam Sod 100 ml @ 200 mls/hr Q8 IVPB Last administered on 08/24/18at 05:11; Admin Dose 200 MLS/HR; Start 08/22/18 at 22:00 Dextrose/Sodium Chloride 1,000 ml @ 50 mls/hr Q20H IV Last administered on 08/23/18at 21:53; Admin Dose 50 MLS/HR; Start 08/23/18 at 01:30 Enoxaparin Sodium (Lovenox) 50 mg DAILY SC ; Start 08/24/18 at 09:00 Metoprolol Tartrate (Lopressor) 25 mg BID PO Last administered on 08/23/18at 20:09; Admin Dose 25 MG; Start 08/23/18 at 21:00 Allergies: Coded Allergies: levofloxacin (Verified Allergy, Unknown, 08/23/18) Past Surgical History Past Surgical Hx: other (Refer to history of present illness) Social History Alcohol Use: none Smoking Status: Never smoker Drug Use: none Exam/Review of Systems Exam Vitals Vital Signs Date Temp Pulse Resp B/P (MAP) Pulse Ox O2 O2 Flow FiO2 Time Delivery Rate 08/24/18 65 18 111/49 100 Mechanical 06:30 (69) Ventilator 08/24/18 30 05:33 08/24/18 97.7 04:00 Intake and Output 08/23/18 08/23/18 08/24/18 1515:00 23:00 07:00 IntakeIntake Total 457.840 ml 331.360 ml 487.632 ml OutputOutput Total 770 ml 1675 ml 201 ml BalanceBalance -312.160 ml -1343.640 ml 286.632 ml Constitutional: non-verbal, frail Head: normocephalic, atraumatic ENMT: nl external ears & nose, nl lips & teeth, nl nasal mucosa & septum Respiratory: clear to auscultation, normal air movement Cardiovascular: regular rate and rhythm, nl pulses Gastrointestinal: soft, nl liver, spleen, non-tender Results Result Diagram: 08/24/18 0452 08/24/18 0452 Results 24hrs Laboratory Tests Test 08/23/18 09:17 08/23/18 12:03 08/23/18 13:11 08/23/18 18:05 Bedside Glucose 113 116 110 Creatine Kinase 50 Creatine Kinase 38.4 Index Creatinine Kinase MB 19.20 H (Mass) Troponin I 2.340 *H Test 08/23/18 19:48 08/24/18 01:04 08/24/18 04:52 08/24/18 05:10 Bedside Glucose 119 72 75 White Blood Count 14.0 H Red Blood Count 3.42 L Hemoglobin 9.7 L Hematocrit 29.5 L Mean Corpuscular 86.3 Volume Mean Corpuscular 28.4 L Hemoglobin Mean Corpuscular 32.9 Hemoglobin Concent Red Cell 17.6 H Distribution Width Platelet Count 561 H Mean Platelet Volume 9.9 Immature 1.200 H Granulocytes % Neutrophils % 63.0 Lymphocytes % 13.9 L Monocytes % 18.0 H Eosinophils % 3.5 Basophils % 0.4 Nucleated Red Blood 1.8 H Cells % Immature 0.170 H Granulocytes # Neutrophils # 8.8 H Lymphocytes # 2.0 Monocytes # 2.5 H Eosinophils # 0.5 Basophils # 0.1 Nucleated Red Blood 0.3 H Cells # Sodium Level 141 Potassium Level 3.9 Chloride Level 117 H Carbon Dioxide Level 17 L Anion Gap 7 Blood Urea Nitrogen 38 H Creatinine 1.46 H Est Glomerular 36 L Filtrat Rate mL/min Glucose Level 55 #L Calcium Level 8.6 Phosphorus Level 3.7 Magnesium Level 2.5 Creatine Kinase 39 Creatine Kinase 37.4 Index Creatinine Kinase MB 14.60 H (Mass) Troponin I 2.240 *H Medications Medication Current Medications IV Flush (NS 3 ml) 3 ml PER PROTOCOL IV Last administered on 08/05/18 09:07; Admin Dose 3 ML; Start 07/29/18 at 06:30 Ondansetron HCl (Zofran Inj) 4 mg Q6H PRN IV NAUSEA/VOMITING Last administered on 08/18/18 18:34; Admin Dose 4 MG; Start 07/29/18 at 06:30 Acetaminophen/ Hydrocodone Bitart ([place] (5/325)) 1 tab Q6H PRN PO .MOD PAIN 4- 6 Last administered on 08/19/18 03:42; Admin Dose 1 TAB; Start 07/29/18 at 06:30 Diagnostic Test (Pha) (Accu-Chek) 1 ea 02 XX Last administered on 08/18/18at 02:00; Admin Dose 1 EA; Start 07/30/18 at 02:00 Acetaminophen (Tylenol Tab) 650 mg Q6H PRN PO .PAIN 1-3 OR TEMP Last administered on 08/17/18 05:46; Admin Dose 650 MG; Start 07/29/18 at 07:00 Eye Lubricant (Akwa Oint) 1 applic Q1H PRN BOTH EYES DRY EYES; Start 07/29/18 at 08:00 Aspirin (Halfprin) 81 mg DAILY PO Last administered on 08/23/18 09:03; Admin Dose 81 MG; Start 07/29/18 at 09:00 Atorvastatin Calcium (Lipitor) 20 mg QHS PO Last administered on 08/23/18at 20:08; Admin Dose 20 MG; Start 07/29/18 at 21:00 Clopidogrel Bisulfate (plaVIX) 75 mg DAILY PO Last administered on 08/23/18at 09:08; Admin Dose 75 MG; Start 07/29/18 at 09:00 Cyanocobalamin (Vitamin B12) 50 mcg DAILY PO Last administered on 08/23/18at 09:03; Admin Dose 50 MCG; Start 07/29/18 at 09:00 Levothyroxine Sodium (Synthroid) 50 mcg BEFORE BREAKFAST PO Last administered on 08/20/18 06:01; Admin Dose 50 MCG; Start 07/29/18 at 07:00 Polyethyl Glycol/ Propylene Glycol (Systane 0.3-0.4% Eye Drops) 1 drop Q4H PRN BOTH EYES DRY EYES; Start 07/29/18 at 08:00 Albuterol (Ventolin Hfa) 2 puff Q4H RESP THERAPY PRN INH WHEEZING; Start 07/29/18 at 09:00 Miscellaneous Information 1 ea NOTE XX ; Start 07/29/18 at 07:00 Glucose (Glutose) 15 gm Q15M PRN PO DECREASED GLUCOSE; Start 07/29/18 at 07:00 Glucose (Glutose) 22.5 gm Q15M PRN PO DECREASED GLUCOSE; Start 07/29/18 at 07:00 Dextrose (D50w Syringe) 25 ml Q15M PRN IV DECREASED GLUCOSE; Start 07/29/18 at 07:00 Dextrose (D50w Syringe) 50 ml Q15M PRN IV DECREASED GLUCOSE; Start 07/29/18 at 07:00 Glucagon (Glucagen) 1 mg Q15M PRN IM DECREASED GLUCOSE; Start 07/29/18 at 07:00 Glucose (Glutose) 15 gm Q15M PRN BUCCAL DECREASED GLUCOSE; Start 07/29/18 at 07:00 Alprazolam (Xanax) 0.25 mg Q8H PRN PO ANXIETY Last administered on 08/19/18at 00:10; Admin Dose 0.25 MG; Start 07/29/18 at 12:30 Polyethylene Glycol (Miralax) 17 gm DAILY PO Last administered on 08/23/18at 09:03; Admin Dose 17 GM; Start 07/29/18 at 12:30 Docusate Sodium (Colace) 100 mg BID PO Last administered on 08/23/18 20:08; Admin Dose 100 MG; Start 07/31/18 at 21:00 Magnesium Hydroxide (Milk Of Mag) 30 ml Q12H PRN PO STOMACH UPSET/CRAMPING Last administered on 07/31/18 21:28; Admin Dose 30 ML; Start 07/31/18 at 20:00 Al Hydrox/Mg Hydrox/Simethicone (Mag-Al Plus) 30 ml Q6H PRN PO GASTROINTESTINAL UPSET Last administered on 08/16/18 23:45; Admin Dose 30 ML; Start 08/03/18 at 17:30 Insulin Glargine (Lantus) 8 units DAILY@2000 SC Last administered on 08/23/18 20:07; Admin Dose 8 UNITS; Start 08/09/18 at 20:00 Albuterol/ Ipratropium (Duoneb) 3 ml Q2H RESP THERAPY PRN HHN sob Last administered on 08/19/18 03:28; Admin Dose 3 ML; Start 08/14/18 at 12:00 Diltiazem HCl (Cardizem Iv) 5 mg Q4 PRN IV HR>70 for Cardiac CTA Last administered on 08/19/18 03:50; Admin Dose 5 MG; Start 08/17/18 at 11:30 Lorazepam (Ativan) 1 mg Q8H PRN IV ANXIETY Last administered on 08/20/18 12:39; Admin Dose 1 MG; Start 08/17/18 at 15:30 Epoetin Glenn-epbx (Retacrit (Non-Esrd)) 20,000 unit TuThSa@1700 SC Last admin istered on 08/23/18 18:07; Admin Dose 20,000 UNIT; Start 08/18/18 at 17:00 Simethicone (Mylicon) 160 mg Q6H PRN PO DISTENSION/GAS/BLOATING Last administered on 08/18/18 08:49; Admin Dose 160 MG; Start 08/17/18 at 20:00 Propofol 100 ml @ 1.568 mls/ hr Q12H IV Last administered on 08/24/18 05:59; Admin Dose 6.272 MLS/HR; Start 08/19/18 at 09:30 Norepinephrine 250 ml @ 1.875 mls/ hr TITRATE IV Last administered on 08/20/18at 08:57; Admin Dose 9.375 MLS/HR; Start 08/19/18 at 10:30 Insulin Aspart (Novolog Insulin Pen) NOVOLOG *MODERATE* ALGORI... Q4 SC Last administered on 08/21/18at 01:38; Admin Dose 2 UNIT; Start 08/20/18 at 01:00 Lansoprazole (Prevacid) 30 mg DAILY@06 NGT ; Start 08/21/18 at 06:00 Piperacillin Sod/ Tazobactam Sod 100 ml @ 200 mls/hr Q8 IVPB Last administered on 08/24/18at 05:11; Admin Dose 200 MLS/HR; Start 08/22/18 at 22:00 Dextrose/Sodium Chloride 1,000 ml @ 50 mls/hr Q20H IV Last administered on 08/23/18at 21:53; Admin Dose 50 MLS/HR; Start 08/23/18 at 01:30 Enoxaparin Sodium (Lovenox) 50 mg DAILY SC ; Start 08/24/18 at 09:00 Metoprolol Tartrate (Lopressor) 25 mg BID PO Last administered on 08/23/18at 20:09; Admin Dose 25 MG; Start 08/23/18 at 21:00 SARANYA ROBLERO Aug 24, 2018 08:15
--- NOTE | 2018-08-24 09:30 | CONS ---
Consult Date/Type/Reason Admit Date/Time Jul 29, 2018 at 06:16 Initial Consult Date 08/15/18 Type of Consult Pulmonary Requesting Provider: SANDI MURDOCK ANATOMY PROFESSOR Date/Time of Note DATE: 08/24/18 TIME: 09:28 Subjective Currently not requiring vasopressor support. Opens eyes but not following commands. Pleurx catheter has been placed. Objective Vital Signs Date Temp Pulse Resp B/P (MAP) Pulse Ox O2 O2 Flow FiO2 Time Delivery Rate 08/24/18 65 18 111/49 100 Mechanical 06:30 (69) Ventilator 08/24/18 30 05:33 08/24/18 97.7 04:00 Intake and Output 08/23/18 08/23/18 08/24/18 1515:00 23:00 07:00 IntakeIntake Total 457.840 ml 331.360 ml 487.632 ml OutputOutput Total 770 ml 1675 ml 201 ml BalanceBalance -312.160 ml -1343.640 ml 286.632 ml Exam GENERAL: Elderly appearing lady orally intubated on mechanical ventilation VITAL SIGNS: per chart NECK: Supple. No JVD or lymphadenopathy. CARDIAC EXAM: S1, S2. No added sounds or murmurs. CHEST: Diminished air entry right side greater than left ABDOMEN: Soft, nontender. No guarding or rebound. EXTREMITIES: No cyanosis, clubbing or edema. NEUROLOGIC: Generalized weakness. No focal deficits Vent Setting Ventilator Support Mode: AC, VC plus Fraction of Inspired Oxygen pe: 30 Positive End Expiratory Pressu: 5.0 Results/Medications Result Diagram: 08/24/18 0452 08/24/18 0452 Results 24 hrs Laboratory Tests Test 08/23/18 12:03 08/23/18 13:11 08/23/18 18:05 08/23/18 19:48 Creatine Kinase 50 Creatine Kinase 38.4 Index Creatinine Kinase MB 19.20 H (Mass) Troponin I 2.340 *H Bedside Glucose 116 110 119 Test 08/24/18 01:04 08/24/18 04:52 08/24/18 05:10 08/24/18 07:53 Bedside Glucose 72 75 68 L White Blood Count 14.0 H Red Blood Count 3.42 L Hemoglobin 9.7 L Hematocrit 29.5 L Mean Corpuscular 86.3 Volume Mean Corpuscular 28.4 L Hemoglobin Mean Corpuscular 32.9 Hemoglobin Concent Red Cell 17.6 H Distribution Width Platelet Count 561 H Mean Platelet Volume 9.9 Immature 1.200 H Granulocytes % Neutrophils % 63.0 Lymphocytes % 13.9 L Monocytes % 18.0 H Eosinophils % 3.5 Basophils % 0.4 Nucleated Red Blood 1.8 H Cells % Immature 0.170 H Granulocytes # Neutrophils # 8.8 H Lymphocytes # 2.0 Monocytes # 2.5 H Eosinophils # 0.5 Basophils # 0.1 Nucleated Red Blood 0.3 H Cells # Sodium Level 141 Potassium Level 3.9 Chloride Level 117 H Carbon Dioxide Level 17 L Anion Gap 7 Blood Urea Nitrogen 38 H Creatinine 1.46 H Est Glomerular 36 L Filtrat Rate mL/min Glucose Level 55 #L Calcium Level 8.6 Phosphorus Level 3.7 Magnesium Level 2.5 Creatine Kinase 39 Creatine Kinase 37.4 Index Creatinine Kinase MB 14.60 H (Mass) Troponin I 2.240 *H Test 08/24/18 08:38 Bedside Glucose 123 Medications Current Medications IV Flush (NS 3 ml) 3 ml PER PROTOCOL IV Last administered on 08/05/18 09:07; Admin Dose 3 ML; Start 07/29/18 at 06:30 Ondansetron HCl (Zofran Inj) 4 mg Q6H PRN IV NAUSEA/VOMITING Last administered on 08/18/18 18:34; Admin Dose 4 MG; Start 07/29/18 at 06:30 Acetaminophen/ Hydrocodone Bitart ([place] (5/325)) 1 tab Q6H PRN PO .MOD PAIN 4- 6 Last administered on 08/19/18 03:42; Admin Dose 1 TAB; Start 07/29/18 at 06:30 Diagnostic Test (Pha) (Accu-Chek) 1 ea 02 XX Last administered on 08/18/18 02:00; Admin Dose 1 EA; Start 07/30/18 at 02:00 Acetaminophen (Tylenol Tab) 650 mg Q6H PRN PO .PAIN 1-3 OR TEMP Last administered on 08/17/18 05:46; Admin Dose 650 MG; Start 07/29/18 at 07:00 Eye Lubricant (Akwa Oint) 1 applic Q1H PRN BOTH EYES DRY EYES; Start 07/29/18 at 08:00 Aspirin (Halfprin) 81 mg DAILY PO Last administered on 08/23/18 09:03; Admin Dose 81 MG; Start 07/29/18 at 09:00 Atorvastatin Calcium (Lipitor) 20 mg QHS PO Last administered on 08/23/18 20:08; Admin Dose 20 MG; Start 07/29/18 at 21:00 Clopidogrel Bisulfate (plaVIX) 75 mg DAILY PO Last administered on 08/23/18 09:08; Admin Dose 75 MG; Start 07/29/18 at 09:00 Cyanocobalamin (Vitamin B12) 50 mcg DAILY PO Last administered on 08/23/18 09:03; Admin Dose 50 MCG; Start 07/29/18 at 09:00 Levothyroxine Sodium (Synthroid) 50 mcg BEFORE BREAKFAST PO Last administered on 08/24/18 07:58; Admin Dose 50 MCG; Start 07/29/18 at 07:00 Polyethyl Glycol/ Propylene Glycol (Systane 0.3-0.4% Eye Drops) 1 drop Q4H PRN BOTH EYES DRY EYES; Start 07/29/18 at 08:00 Albuterol (Ventolin Hfa) 2 puff Q4H RESP THERAPY PRN INH WHEEZING; Start 07/29/18 at 09:00 Miscellaneous Information 1 ea NOTE XX ; Start 07/29/18 at 07:00 Glucose (Glutose) 15 gm Q15M PRN PO DECREASED GLUCOSE; Start 07/29/18 at 07:00 Glucose (Glutose) 22.5 gm Q15M PRN PO DECREASED GLUCOSE; Start 07/29/18 at 07:00 Dextrose (D50w Syringe) 25 ml Q15M PRN IV DECREASED GLUCOSE Last administered on 08/24/18 07:58; Admin Dose 25 ML; Start 07/29/18 at 07:00 Dextrose (D50w Syringe) 50 ml Q15M PRN IV DECREASED GLUCOSE; Start 07/29/18 at 07:00 Glucagon (Glucagen) 1 mg Q15M PRN IM DECREASED GLUCOSE; Start 07/29/18 at 07:00 Glucose (Glutose) 15 gm Q15M PRN BUCCAL DECREASED GLUCOSE; Start 07/29/18 at 07:00 Alprazolam (Xanax) 0.25 mg Q8H PRN PO ANXIETY Last administered on 08/19/18 00:10; Admin Dose 0.25 MG; Start 07/29/18 at 12:30 Polyethylene Glycol (Miralax) 17 gm DAILY PO Last administered on 08/23/18 09:03; Admin Dose 17 GM; Start 07/29/18 at 12:30 Docusate Sodium (Colace) 100 mg BID PO Last administered on 08/23/18 20:08; Admin Dose 100 MG; Start 07/31/18 at 21:00 Magnesium Hydroxide (Milk Of Mag) 30 ml Q12H PRN PO STOMACH UPSET/CRAMPING Last administered on 07/31/18 21:28; Admin Dose 30 ML; Start 07/31/18 at 20:00 Al Hydrox/Mg Hydrox/Simethicone (Mag-Al Plus) 30 ml Q6H PRN PO GASTROINTESTINAL UPSET Last administered on 08/16/18 23:45; Admin Dose 30 ML; Start 08/03/18 at 17:30 Insulin Glargine (Lantus) 8 units DAILY@2000 SC Last administered on 08/23/18 20:07; Admin Dose 8 UNITS; Start 08/09/18 at 20:00 Albuterol/ Ipratropium (Duoneb) 3 ml Q2H RESP THERAPY PRN HHN sob Last administered on 08/19/18 03:28; Admin Dose 3 ML; Start 08/14/18 at 12:00 Diltiazem HCl (Cardizem Iv) 5 mg Q4 PRN IV HR>70 for Cardiac CTA Last administered on 08/19/18 03:50; Admin Dose 5 MG; Start 08/17/18 at 11:30 Lorazepam (Ativan) 1 mg Q8H PRN IV ANXIETY Last administered on 08/20/18 12:39; Admin Dose 1 MG; Start 08/17/18 at 15:30 Epoetin Glenn-epbx (Retacrit (Non-Esrd)) 20,000 unit TuThSa@1700 SC Last administered on 08/23/18 18:07; Admin Dose 20,000 UNIT; Start 08/18/18 at 17:00 Simethicone (Mylicon) 160 mg Q6H PRN PO DISTENSION/GAS/BLOATING Last administered on 08/18/18 08:49; Admin Dose 160 MG; Start 08/17/18 at 20:00 Propofol 100 ml @ 1.568 mls/ hr Q12H IV Last administered on 08/24/18at 05:59; Admin Dose 6.272 MLS/HR; Start 08/19/18 at 09:30 Norepinephrine 250 ml @ 1.875 mls/ hr TITRATE IV Last administered on 08/20/18at 08:57; Admin Dose 9.375 MLS/HR; Start 08/19/18 at 10:30 Insulin Aspart (Novolog Insulin Pen) NOVOLOG *MODERATE* ALGORI... Q4 SC Last administered on 08/21/18at 01:38; Admin Dose 2 UNIT; Start 08/20/18 at 01:00 Lansoprazole (Prevacid) 30 mg DAILY@06 NGT ; Start 08/21/18 at 06:00 Piperacillin Sod/ Tazobactam Sod 100 ml @ 200 mls/hr Q8 IVPB Last administered on 08/24/18at 05:11; Admin Dose 200 MLS/HR; Start 08/22/18 at 22:00 Dextrose/Sodium Chloride 1,000 ml @ 50 mls/hr Q20H IV Last administered on 08/23/18at 21:53; Admin Dose 50 MLS/HR; Start 08/23/18 at 01:30 Enoxaparin Sodium (Lovenox) 50 mg DAILY SC ; Start 08/24/18 at 09:00 Metoprolol Tartrate (Lopressor) 25 mg BID PO Last administered on 08/23/18at 20:09; Admin Dose 25 MG; Start 08/23/18 at 21:00 Assessment/Plan Hospital Course (Demo Recall) Assessment 1. Status post cardiopulmonary arrest 2. Encephalopathy possibly toxic metabolic 3. Status post septic shock, off vasopressors at present. 4. Recurrent right pleural effusion probably metastatic in nature 5. Metastatic uterine cancer Plan 1. Continue mechanical ventilation, currently patient not able to extubate from mechanical ventilation. 2. Right Pleurx catheter, continue free drainage as tolerated 3. Decrease vasopressors as tolerated, titrate to keep map greater than 65. 4. Overall prognosis very poor patient may not be able to be liberated from mechanical ventilation. Appreciate palliative care recommendations. Family wis h to continue all aggressive measures for now. Critical care time 40 minutes FARHAN VALENTINO MD, [facility] Aug 24, 2018 09:30
--- NOTE | 2018-08-24 09:59 | PN ---
Date/Time of Note Date/Time of Note DATE: 08/24/18 TIME: 09:58 Assessment/Plan VTE Prophylaxis Risk score (from Ns)>0 risk: 15 SCD applied (from Ns): Yes Pharmacological prophylaxis: LMWH Lines/Catheters IV Catheter Type (from Nrsg): Central Line Central line still needed: Yes Urinary Cath still in place: Yes Reason Cath still needed: other (indicate) Assessment/Plan Hospital Course SUBJECTIVE: Remains intubated. On propofol. Off Levophed. OBJECTIVE: Physical Exam General: Adequately build 68 year-old female lying in bed in no apparent distress. HEENT: Normocephalic, atraumatic. Eyes: Anicteric sclerae, conjunctivae clear. ENT: Nasal septum midline, oral mucosa is dry. Neck supple, no JVD noticed. Respiratory: Bilaterally diminished breath sounds. ETT to mechanical ventilator. Cardiovascular: S1, S2 heard. Regular rate and rhythm. Abdomen: Soft, nontender, and nondistended. Bowel sounds positive in all 4 quadrants. Genitourinary: Deferred. Extremities: No cyanosis, no clubbing. Bilateral lower extremity 1+ edema. Neurologic: The patient is awake. Tracks movements. Moves all 4 extremities. Does not follow commands. Labs & Vitals per chart ASSESSMENT & PLAN This is a 68-year-old female with past medical history of diabetes mellitus, peripheral artery disease, stroke, dyslipidemia, and hypothyroidism. The patient presented to the emergency room with multiple complaints including bilateral lower extremity edema, unintentional weight loss, etc. The patient was admitted to inpatient setting for further treatment and evaluation. The patient underwent a CT scan of the abdomen and pelvis on 08/01/2018 that showed abnormal enlargement of the uterus with significant thickening of the endometrial stripe with pelvis MRI showing irregular 9 cm exophytic posterior uterine mass. 1. Metastatic carcinosarcoma of uterus. Being followed by oncology. A poor candidate for chemo as per oncology. 2. Malignant pleural effusion. Status post right-sided thoracentesis on 08/15/2018. S/P Pleurx catheter placement on 08/23/2018. 3. Positive Lexiscan myocardial perfusion study. Study positive for partially reversible perfusion defect in the distal anterior wall. Being followed by cardiology. Continue aspirin plus Plavix. 4. Status post cardiopulmonary arrest on 08/19/2018. Etiology could be secondary to underlying hypoxia versus others. Intubated and on pressors. Poor prognosis. 5. NSTEMI on 08/22/2018. Continue antiplatelet therapy. Cardiology following. 6. Peripheral artery disease. Being followed by vascular surgery. Optimize medical management. Continue aspirin plus Plavix. Continue statins. 7. Diabetes mellitus. Hemoglobin A1c 6.3. Continue sliding scale insulin along with basal. 8. Hypothyroidism. Continue Synthroid. 9. Acute kidney injury. Being followed by nephrology. Use nephrotoxic drugs with caution. 10. Normocytic anemia. Monitor H&H closely. Continue Epogen. 11. Acute respiratory failure. Hypoxic. Ventilator management as per pulmonology. 12. S/P Shock. S/P IV pressors for blood pressure support. 13. Fluids, electrolytes, and nutrition. NPO. NGT feeds. 14. DVT prophylaxis. Subcutaneous Lovenox. 15. Plan. Continue current management. Poor prognosis. As per the conversation with the patient's son Yaima on 08/22/2018, they want the patient to remain a full code. Palliative care following. The patient was seen in collaboration with Dr. Hancock. Critical care time: 35 mins. Result Diagram: 08/24/18 0452 08/24/18 0452 Results 24hrs Laboratory Tests Test 08/23/18 12:03 08/23/18 13:11 08/23/18 18:05 08/23/18 19:48 Creatine Kinase 50 Creatine Kinase 38.4 Index Creatinine Kinase MB 19.20 H (Mass) Troponin I 2.340 *H Bedside Glucose 116 110 119 Test 08/24/18 01:04 08/24/18 04:52 08/24/18 05:10 08/24/18 07:53 Bedside Glucose 72 75 68 L White Blood Count 14.0 H Red Blood Count 3.42 L Hemoglobin 9.7 L Hematocrit 29.5 L Mean Corpuscular 86.3 Volume Mean Corpuscular 28.4 L Hemoglobin Mean Corpuscular 32.9 Hemoglobin Concent Red Cell 17.6 H Distribution Width Platelet Count 561 H Mean Platelet Volume 9.9 Immature 1.200 H Granulocytes % Neutrophils % 63.0 Lymphocytes % 13.9 L Monocytes % 18.0 H Eosinophils % 3.5 Basophils % 0.4 Nucleated Red Blood 1.8 H Cells % Immature 0.170 H Granulocytes # Neutrophils # 8.8 H Lymphocytes # 2.0 Monocytes # 2.5 H Eosinophils # 0.5 Basophils # 0.1 Nucleated Red Blood 0.3 H Cells # Sodium Level 141 Potassium Level 3.9 Chloride Level 117 H Carbon Dioxide Level 17 L Anion Gap 7 Blood Urea Nitrogen 38 H Creatinine 1.46 H Est Glomerular 36 L Filtrat Rate mL/min Glucose Level 55 #L Calcium Level 8.6 Phosphorus Level 3.7 Magnesium Level 2.5 Creatine Kinase 39 Creatine Kinase 37.4 Index Creatinine Kinase MB 14.60 H (Mass) Troponin I 2.240 *H Test 08/24/18 08:38 Bedside Glucose 123 Exam/Review of Systems Exam Vitals Vital Signs Date Temp Pulse Resp B/P (MAP) Pulse Ox O2 O2 Flow FiO2 Time Delivery Rate 08/24/18 30 08:00 08/24/18 65 18 111/49 100 Mechanical 06:30 (69) Ventilator 08/24/18 97.7 04:00 Intake and Output 08/23/18 08/23/18 08/24/18 1515:00 23:00 07:00 IntakeIntake Total 457.840 ml 331.360 ml 487.632 ml OutputOutput Total 770 ml 1675 ml 201 ml BalanceBalance -312.160 ml -1343.640 ml 286.632 ml Results Results 24hrs Laboratory Tests Test 08/23/18 12:03 08/23/18 13:11 08/23/18 18:05 08/23/18 19:48 Creatine Kinase 50 Creatine Kinase 38.4 Index Creatinine Kinase MB 19.20 H (Mass) Troponin I 2.340 *H Bedside Glucose 116 110 119 Test 08/24/18 01:04 08/24/18 04:52 08/24/18 05:10 08/24/18 07:53 Bedside Glucose 72 75 68 L White Blood Count 14.0 H Red Blood Count 3.42 L Hemoglobin 9.7 L Hematocrit 29.5 L Mean Corpuscular 86.3 Volume Mean Corpuscular 28.4 L Hemoglobin Mean Corpuscular 32.9 Hemoglobin Concent Red Cell 17.6 H Distribution Width Platelet Count 561 H Mean Platelet Volume 9.9 Immature 1.200 H Granulocytes % Neutrophils % 63.0 Lymphocytes % 13.9 L Monocytes % 18.0 H Eosinophils % 3.5 Basophils % 0.4 Nucleated Red Blood 1.8 H Cells % Immature 0.170 H Granulocytes # Neutrophils # 8.8 H Lymphocytes # 2.0 Monocytes # 2.5 H Eosinophils # 0.5 Basophils # 0.1 Nucleated Red Blood 0.3 H Cells # Sodium Level 141 Potassium Level 3.9 Chloride Level 117 H Carbon Dioxide Level 17 L Anion Gap 7 Blood Urea Nitrogen 38 H Creatinine 1.46 H Est Glomerular 36 L Filtrat Rate mL/min Glucose Level 55 #L Calcium Level 8.6 Phosphorus Level 3.7 Magnesium Level 2.5 Creatine Kinase 39 Creatine Kinase 37.4 Index Creatinine Kinase MB 14.60 H (Mass) Troponin I 2.240 *H Test 08/24/18 08:38 Bedside Glucose 123 Medications Medication Current Medications IV Flush (NS 3 ml) 3 ml PER PROTOCOL IV Last administered on 08/05/18 09:07; Admin Dose 3 ML; Start 07/29/18 at 06:30 Ondansetron HCl (Zofran Inj) 4 mg Q6H PRN IV NAUSEA/VOMITING Last administered on 08/18/18 18:34; Admin Dose 4 MG; Start 07/29/18 at 06:30 Acetaminophen/ Hydrocodone Bitart ([place] (5/325)) 1 tab Q6H PRN PO .MOD PAIN 4- 6 Last administered on 08/19/18 03:42; Admin Dose 1 TAB; Start 07/29/18 at 06:30 Diagnostic Test (Pha) (Accu-Chek) 1 ea 02 XX Last administered on 08/18/18 02:00; Admin Dose 1 EA; Start 07/30/18 at 02:00 Acetaminophen (Tylenol Tab) 650 mg Q6H PRN PO .PAIN 1-3 OR TEMP Last administered on 08/17/18 05:46; Admin Dose 650 MG; Start 07/29/18 at 07:00 Eye Lubricant (Akwa Oint) 1 applic Q1H PRN BOTH EYES DRY EYES; Start 07/29/18 at 08:00 Aspirin (Halfprin) 81 mg DAILY PO Last administered on 08/23/18 09:03; Admin Dose 81 MG; Start 07/29/18 at 09:00 Atorvastatin Calcium (Lipitor) 20 mg QHS PO Last administered on 08/23/18 20:08; Admin Dose 20 MG; Start 07/29/18 at 21:00 Clopidogrel Bisulfate (plaVIX) 75 mg DAILY PO Last administered on 08/23/18 09:08; Admin Dose 75 MG; Start 07/29/18 at 09:00 Cyanocobalamin (Vitamin B12) 50 mcg DAILY PO Last administered on 08/23/18 09:03; Admin Dose 50 MCG; Start 07/29/18 at 09:00 Levothyroxine Sodium (Synthroid) 50 mcg BEFORE BREAKFAST PO Last administered on 08/24/18 07:58; Admin Dose 50 MCG; Start 07/29/18 at 07:00 Polyethyl Glycol/ Propylene Glycol (Systane 0.3-0.4% Eye Drops) 1 drop Q4H PRN BOTH EYES DRY EYES; Start 07/29/18 at 08:00 Albuterol (Ventolin Hfa) 2 puff Q4H RESP THERAPY PRN INH WHEEZING; Start 07/29/18 at 09:00 Miscellaneous Information 1 ea NOTE XX ; Start 07/29/18 at 07:00 Glucose (Glutose) 15 gm Q15M PRN PO DECREASED GLUCOSE; Start 07/29/18 at 07:00 Glucose (Glutose) 22.5 gm Q15M PRN PO DECREASED GLUCOSE; Start 07/29/18 at 07:00 Dextrose (D50w Syringe) 25 ml Q15M PRN IV DECREASED GLUCOSE Last administered on 08/24/18 07:58; Admin Dose 25 ML; Start 07/29/18 at 07:00 Dextrose (D50w Syringe) 50 ml Q15M PRN IV DECREASED GLUCOSE; Start 07/29/18 at 07:00 Glucagon (Glucagen) 1 mg Q15M PRN IM DECREASED GLUCOSE; Start 07/29/18 at 07:00 Glucose (Glutose) 15 gm Q15M PRN BUCCAL DECREASED GLUCOSE; Start 07/29/18 at 07:00 Alprazolam (Xanax) 0.25 mg Q8H PRN PO ANXIETY Last administered on 08/19/18at 00:10; Admin Dose 0.25 MG; Start 07/29/18 at 12:30 Polyethylene Glycol (Miralax) 17 gm DAILY PO Last administered on 08/23/18at 09:03; Admin Dose 17 GM; Start 07/29/18 at 12:30 Docusate Sodium (Colace) 100 mg BID PO Last administered on 08/23/18at 20:08; Admin Dose 100 MG; Start 07/31/18 at 21:00 Magnesium Hydroxide (Milk Of Mag) 30 ml Q12H PRN PO STOMACH UPSET/CRAMPING Last administered on 07/31/18 21:28; Admin Dose 30 ML; Start 07/31/18 at 20:00 Al Hydrox/Mg Hydrox/Simethicone (Mag-Al Plus) 30 ml Q6H PRN PO GASTROINTESTINAL UPSET Last administered on 08/16/18 23:45; Admin Dose 30 ML; Start 08/03/18 at 17:30 Insulin Glargine (Lantus) 8 units DAILY@2000 SC Last administered on 08/23/18 20:07; Admin Dose 8 UNITS; Start 08/09/18 at 20:00 Albuterol/ Ipratropium (Duoneb) 3 ml Q2H RESP THERAPY PRN HHN sob Last administered on 08/19/18 03:28; Admin Dose 3 ML; Start 08/14/18 at 12:00 Diltiazem HCl (Cardizem Iv) 5 mg Q4 PRN IV HR>70 for Cardiac CTA Last administered on 08/19/18 03:50; Admin Dose 5 MG; Start 08/17/18 at 11:30 Lorazepam (Ativan) 1 mg Q8H PRN IV ANXIETY Last administered on 08/20/18 12:39; Admin Dose 1 MG; Start 08/17/18 at 15:30 Epoetin Glenn-epbx (Retacrit (Non-Esrd)) 20,000 unit TuThSa@1700 SC Last administered on 08/23/18 18:07; Admin Dose 20,000 UNIT; Start 08/18/18 at 17:00 Simethicone (Mylicon) 160 mg Q6H PRN PO DISTENSION/GAS/BLOATING Last administered on 08/18/18 08:49; Admin Dose 160 MG; Start 08/17/18 at 20:00 Propofol 100 ml @ 1.568 mls/ hr Q12H IV Last administered on 08/24/18 05:59; Admin Dose 6.272 MLS/HR; Start 08/19/18 at 09:30 Norepinephrine 250 ml @ 1.875 mls/ hr TITRATE IV Last administered on 08/20/18 08:57; Admin Dose 9.375 MLS/HR; Start 08/19/18 at 10:30 Insulin Aspart (Novolog Insulin Pen) NOVOLOG *MODERATE* ALGORI... Q4 SC Last administered on 08/21/18at 01:38; Admin Dose 2 UNIT; Start 08/20/18 at 01:00 Lansoprazole (Prevacid) 30 mg DAILY@06 NGT ; Start 08/21/18 at 06:00 Piperacillin Sod/ Tazobactam Sod 100 ml @ 200 mls/hr Q8 IVPB Last administered on 08/24/18at 05:11; Admin Dose 200 MLS/HR; Start 08/22/18 at 22:00 Dextrose/Sodium Chloride 1,000 ml @ 50 mls/hr Q20H IV Last administered on 08/23/18at 21:53; Admin Dose 50 MLS/HR; Start 08/23/18 at 01:30 Enoxaparin Sodium (Lovenox) 50 mg DAILY SC ; Start 08/24/18 at 09:00 Metoprolol Tartrate (Lopressor) 25 mg BID PO Last administered on 08/23/18at 20:09; Admin Dose 25 MG; Start 08/23/18 at 21:00 SANDI MURDOCK NP Aug 24, 2018 09:59
[2018-08-24] MEDS: CLOPIDOGREL 75 MG TAB PO SCH (10:27)
[2018-08-24] MEDS: METOPROLOL 25 MG TAB PO SCH ×2 (10:27→20:25)
[2018-08-24] MEDS: CYANOCOBALAMIN 100 MCG TAB PO SCH (10:27)
[2018-08-24] MEDS: ENOXAPARIN 60 MG/0.6 ML SYG SC SCH (10:29)
[2018-08-24] MEDS: POLYETHYLENE GLYCOL 17 GM PACKET PO SCH (10:31)
[2018-08-24] MEDS: ASPIRIN (EC) 81 MG TAB PO SCH (10:32)
[2018-08-24] MEDS: DOCUSATE SODIUM 100 MG CAP PO SCH ×2 (10:32→20:25)
--- NOTE | 2018-08-24 11:05 | CONS ---
Consult Date/Type/Reason Admit Date/Time Jul 29, 2018 at 06:16 Initial Consult Date 08/10/18 Requesting Provider: SANDI MURDOCK NP Date/Time of Note DATE: 08/24/18 TIME: 11:02 Subjective N acute events - pt stable - trying to wean, not able yet - plan to do a CTA - OK if needed. ROS: No fever, no chills, no nausea, no vomiting, no diarrhea/constipation No recent weight changes No chest pain, no PND, no orthopnea - chronic SOB per nurse No dizziness, blurred vision No thirst, no heat or cold intolerance Objective Vitals Vital Signs Date Temp Pulse Resp B/P (MAP) Pulse Ox O2 O2 Flow FiO2 Time Delivery Rate 08/24/18 30 08:00 08/24/18 65 18 111/49 100 Mechanical 06:30 (69) Ventilator 08/24/18 97.7 04:00 Intake and Output 08/23/18 08/23/18 08/24/18 1515:00 23:00 07:00 IntakeIntake Total 457.840 ml 331.360 ml 487.632 ml OutputOutput Total 770 ml 1675 ml 201 ml BalanceBalance -312.160 ml -1343.640 ml 286.632 ml Exam General: WN/WD/NAD, AOx comfortable, more alert HEENT: Unicetric/atraumatic/EOMI (intubated) NECK: JVD elevated, no thyromegaly Lymph: no lymphadenopathy HEART: regular with no S3, II/ systolic murmur at apex LUNGS: Coarse sounds ABD: soft, NT, ND, +BS : Intact Neuro: non focal SKIN: chronic changes EXT: trace edema Results/Medications Result Diagram: 08/24/18 0452 08/24/18 0452 Results 24 hrs Laboratory Tests Test 08/23/18 12:03 08/23/18 13:11 08/23/18 18:05 08/23/18 19:48 Creatine Kinase 50 Creatine Kinase 38.4 Index Creatinine Kinase MB 19.20 H (Mass) Troponin I 2.340 *H Bedside Glucose 116 110 119 Test 08/24/18 01:04 08/24/18 04:52 08/24/18 05:10 08/24/18 07:53 Bedside Glucose 72 75 68 L White Blood Count 14.0 H Red Blood Count 3.42 L Hemoglobin 9.7 L Hematocrit 29.5 L Mean Corpuscular 86.3 Volume Mean Corpuscular 28.4 L Hemoglobin Mean Corpuscular 32.9 Hemoglobin Concent Red Cell 17.6 H Distribution Width Platelet Count 561 H Mean Platelet Volume 9.9 Immature 1.200 H Granulocytes % Neutrophils % 63.0 Lymphocytes % 13.9 L Monocytes % 18.0 H Eosinophils % 3.5 Basophils % 0.4 Nucleated Red Blood 1.8 H Cells % Immature 0.170 H Granulocytes # Neutrophils # 8.8 H Lymphocytes # 2.0 Monocytes # 2.5 H Eosinophils # 0.5 Basophils # 0.1 Nucleated Red Blood 0.3 H Cells # Sodium Level 141 Potassium Level 3.9 Chloride Level 117 H Carbon Dioxide Level 17 L Anion Gap 7 Blood Urea Nitrogen 38 H Creatinine 1.46 H Est Glomerular 36 L Filtrat Rate mL/min Glucose Level 55 #L Calcium Level 8.6 Phosphorus Level 3.7 Magnesium Level 2.5 Creatine Kinase 39 Creatine Kinase 37.4 Index Creatinine Kinase MB 14.60 H (Mass) Troponin I 2.240 *H Test 08/24/18 08:38 Bedside Glucose 123 Home Meds Active Scripts Magnesium Oxide* (Mag-Oxide*) 400 Mg Tablet, 400 MG PO BID for 3 Days, #10 TAB Prov:FERNANDO YANCEY MD 07/08/18 Lactobacillus Rhamnosus GG (Culturelle) 1 Each Capsule, 1 CAP PO BID for 14 Days, #30 CAP Prov:FERNANDO YANCEY MD 07/08/18 Acetaminophen* (Tylenol*) 325 Mg Tablet, 650 MG PO Q6H PRN for .PAIN 1-3 OR TEMP for 10 Days, #10 TAB Prov:FERNANDO YANCEY MD 07/08/18 Lisinopril* (Lisinopril*) 5 Mg Tablet, 2.5 MG PO DAILY for 15 Days, #15 TAB Prov:FERNANDO YANCEY MD 07/08/18 Sulfamethoxazole/Trimethoprim (Sulfamethoxazole-Tmp Ds Tablet) 1 Each Tablet, 1 TAB PO BID for 5 Days, #10 TAB Prov:FERNANDO YANCEY MD 07/08/18 Reported Medications Sodium Bicarbonate* (Sodium Bicarbonate*) 650 Mg Tablet, 650 MG PO TID, TAB 07/05/18 Propylene Glycol-Peg 400 (Systane 0.3-0.4% Eye Drops) 0.3-0.4 % - 30 Ml Drops, 1 DROP BOTH EYES Q4H PRN for DRY EYES, #1 BOTTLE 07/05/18 Pantoprazole* (Protonix*) 40 Mg Tablet.dr, 40 MG PO QAM, TAB 07/05/18 Ondansetron Hcl* (Zofran*) 8 Mg Tablet, 8 MG PO Q6H PRN for NAUSEA AND OR VOMITING, TAB 07/05/18 Metoprolol Succinate* (Toprol XL*) 25 Mg Tab.sr.24h, 25 MG PO BID, #30 TAB 07/05/18 Metformin* (Glucophage*) 500 Mg Tab, 500 MG PO WITH BREAKFAST, #30 TAB 07/05/18 Levothyroxine Sodium* (Synthroid*) 50 Mcg Tablet, 50 MCG PO BEFORE BREAKFAST, #30 TAB 07/05/18 Hydrocodone/Acetaminophen ([place] 5-325 Tablet) 1 Each Tablet, 1 EACH PO Q6 PRN for PAIN, TAB 07/05/18 [place]-3 Fatty Acids/Fish Oil (Fish Oil 1,000 mg Capsule) 1 Each Capsule, 1 EACH PO DAILY, CAP 07/05/18 Cyanocobalamin* (Vitamin B-12*) 50 Mcg Tablet, 50 MCG PO DAILY, TAB 07/05/18 Clopidogrel Bisulfate (Clopidogrel) 75 Mg Tablet, 75 MG PO DAILY, #30 TAB 07/05/18 Atorvastatin Calcium* (Atorvastatin Calcium*) 20 Mg Tablet, 20 MG PO QHS, #30 TAB 07/05/18 Aspirin* (Aspirin* EC) 81 Mg Tablet.dr, 81 MG PO DAILY, TAB 07/05/18 Artificial Tears* (Akwa Oint*) 3.5 Gm Oint, 1 APPLIC BOTH EYES Q1H PRN for DRY EYES, #1 TUB 07/05/18 Albuterol Sulfate (Proair Respiclick) 90 Mcg Aer.pow.ba, 2 PUFFS INHALATION Q4 PRN for WHEEZING, BOTTLE 07/05/18 Medications Current Medications IV Flush (NS 3 ml) 3 ml PER PROTOCOL IV Last administered on 08/05/18at 09:07; Admin Dose 3 ML; Start 07/29/18 at 06:30 Ondansetron HCl (Zofran Inj) 4 mg Q6H PRN IV NAUSEA/VOMITING Last administered on 08/18/18 18:34; Admin Dose 4 MG; Start 07/29/18 at 06:30 Acetaminophen/ Hydrocodone Bitart ([place] (5/325)) 1 tab Q6H PRN PO .MOD PAIN 4- 6 Last administered on 08/19/18 03:42; Admin Dose 1 TAB; Start 07/29/18 at 06:30 Diagnostic Test (Pha) (Accu-Chek) 1 ea 02 XX Last administered on 08/18/18 02:00; Admin Dose 1 EA; Start 07/30/18 at 02:00 Acetaminophen (Tylenol Tab) 650 mg Q6H PRN PO .PAIN 1-3 OR TEMP Last administered on 08/17/18 05:46; Admin Dose 650 MG; Start 07/29/18 at 07:00 Eye Lubricant (Akwa Oint) 1 applic Q1H PRN BOTH EYES DRY EYES; Start 07/29/18 at 08:00 Aspirin (Halfprin) 81 mg DAILY PO Last administered on 08/24/18 10:32; Admin Dose 81 MG; Start 07/29/18 at 09:00 Atorvastatin Calcium (Lipitor) 20 mg QHS PO Last administered on 08/23/18 20:08; Admin Dose 20 MG; Start 07/29/18 at 21:00 Clopidogrel Bisulfate (plaVIX) 75 mg DAILY PO Last administered on 08/24/18 10:27; Admin Dose 75 MG; Start 07/29/18 at 09:00 Cyanocobalamin (Vitamin B12) 50 mcg DAILY PO Last administered on 08/24/18 10:27; Admin Dose 50 MCG; Start 07/29/18 at 09:00 Levothyroxine Sodium (Synthroid) 50 mcg BEFORE BREAKFAST PO Last administered on 08/24/18 07:58; Admin Dose 50 MCG; Start 07/29/18 at 07:00 Polyethyl Glycol/ Propylene Glycol (Systane 0.3-0.4% Eye Drops) 1 drop Q4H PRN BOTH EYES DRY EYES; Start 07/29/18 at 08:00 Albuterol (Ventolin Hfa) 2 puff Q4H RESP THERAPY PRN INH WHEEZING; Start 07/29/18 at 09:00 Miscellaneous Information 1 ea NOTE XX ; Start 07/29/18 at 07:00 Glucose (Glutose) 15 gm Q15M PRN PO DECREASED GLUCOSE; Start 07/29/18 at 07:00 Glucose (Glutose) 22.5 gm Q15M PRN PO DECREASED GLUCOSE; Start 07/29/18 at 07:00 Dextrose (D50w Syringe) 25 ml Q15M PRN IV DECREASED GLUCOSE Last administered on 08/24/18at 07:58; Admin Dose 25 ML; Start 07/29/18 at 07:00 Dextrose (D50w Syringe) 50 ml Q15M PRN IV DECREASED GLUCOSE; Start 07/29/18 at 07:00 Glucagon (Glucagen) 1 mg Q15M PRN IM DECREASED GLUCOSE; Start 07/29/18 at 07:00 Glucose (Glutose) 15 gm Q15M PRN BUCCAL DECREASED GLUCOSE; Start 07/29/18 at 07:00 Alprazolam (Xanax) 0.25 mg Q8H PRN PO ANXIETY Last administered on 08/19/18at 00:10; Admin Dose 0.25 MG; Start 07/29/18 at 12:30 Polyethylene Glycol (Miralax) 17 gm DAILY PO Last administered on 08/24/18 10:31; Admin Dose 17 GM; Start 07/29/18 at 12:30 Docusate Sodium (Colace) 100 mg BID PO Last administered on 08/24/18 10:32; Admin Dose 100 MG; Start 07/31/18 at 21:00 Magnesium Hydroxide (Milk Of Mag) 30 ml Q12H PRN PO STOMACH UPSET/CRAMPING Last administered on 07/31/18at 21:28; Admin Dose 30 ML; Start 07/31/18 at 20:00 Al Hydrox/Mg Hydrox/Simethicone (Mag-Al Plus) 30 ml Q6H PRN PO GASTROINTESTINAL UPSET Last administered on 08/16/18at 23:45; Admin Dose 30 ML; Start 08/03/18 at 17:30 Insulin Glargine (Lantus) 8 units DAILY@2000 SC Last administered on 08/23/18at 20:07; Admin Dose 8 UNITS; Start 08/09/18 at 20:00 Albuterol/ Ipratropium (Duoneb) 3 ml Q2H RESP THERAPY PRN HHN sob Last administered on 6/23/19at 03:28; Admin Dose 3 ML; Start 08/14/18 at 12:00 Diltiazem HCl (Cardizem Iv) 5 mg Q4 PRN IV HR>70 for Cardiac CTA Last administered on 08/19/18 03:50; Admin Dose 5 MG; Start 08/17/18 at 11:30 Lorazepam (Ativan) 1 mg Q8H PRN IV ANXIETY Last administered on 08/20/18 12:39; Admin Dose 1 MG; Start 08/17/18 at 15:30 Epoetin Glenn-epbx (Retacrit (Non-Esrd)) 20,000 unit TuThSa@1700 SC Last administered on 08/23/18 18:07; Admin Dose 20,000 UNIT; Start 08/18/18 at 17:00 Simethicone (Mylicon) 160 mg Q6H PRN PO DISTENSION/GAS/BLOATING Last administered on 08/18/18 08:49; Admin Dose 160 MG; Start 08/17/18 at 20:00 Propofol 100 ml @ 1.568 mls/ hr Q12H IV Last administered on 08/24/18 05:59; Admin Dose 6.272 MLS/HR; Start 08/19/18 at 09:30 Norepinephrine 250 ml @ 1.875 mls/ hr TITRATE IV Last administered on 08/20/18 08:57; Admin Dose 9.375 MLS/HR; Start 08/19/18 at 10:30 Insulin Aspart (Novolog Insulin Pen) NOVOLOG *MODERATE* ALGORI... Q4 SC Last administered on 08/21/18 01:38; Admin Dose 2 UNIT; Start 08/20/18 at 01:00 Lansoprazole (Prevacid) 30 mg DAILY@06 NGT ; Start 08/21/18 at 06:00 Piperacillin Sod/ Tazobactam Sod 100 ml @ 200 mls/hr Q8 IVPB Last administered on 08/24/18 05:11; Admin Dose 200 MLS/HR; Start 08/22/18 at 22:00 Dextrose/Sodium Chloride 1,000 ml @ 50 mls/hr Q20H IV Last administered on 08/23/18 21:53; Admin Dose 50 MLS/HR; Start 08/23/18 at 01:30 Enoxaparin Sodium (Lovenox) 50 mg DAILY SC Last administered on 08/24/18at 10:29; Admin Dose 50 MG; Start 08/24/18 at 09:00 Metoprolol Tartrate (Lopressor) 25 mg BID PO Last administered on 08/24/18at 10:27; Admin Dose 25 MG; Start 08/23/18 at 21:00 Assessment/Plan Hospital Course (Demo Recall) 1.Preop-neg trop multiple times. NL EF by echo. Lexiscan with possible distal anterior ischemia. NL EF. Now with positive troponin's s/p cardiopulmonary arrest - CTA planned 2.abnl ecg-ECG today with inferior ST elevation but with normal concavity and Q's isolated to lead 3 .. NL EF by echo this admit. multiple negative troponins and no chest pain prior to arrest - now troponin down - no active CP noted 3.Uterine cancer - stable urine output. 4.DM - keep euglycemic. 5.Hoth-resolved off of pressors - improved now. 6.HL 7.PLeural effusion-L sided large, malignant by cytology 8. Resp failure s/p intubation - not able to wean now. Pulmonary team follows. 9. NSTEMI-likely type 2 demand infarct - CTA to define anatomy now. TUAN LANGLEY MD Aug 24, 2018 11:05
--- NOTE | 2018-08-24 11:08 | CONS ---
Assessment/Plan Assessment/Plan Assessment/Plan (Recall) 68 F c/ reported Hx of prior stroke and other comorbidities, who initially presented for evaluation of unexplained weight loss and other Sx. She was found to have a uterine cancer w/ liver met..but is reportedly not a candidate for chemotherapy. Then on 08/19, she suffered a cardiopulmonary arrest..and is refractorily encephalopathic, for which neurology is consulted. TTP was deferred.. She is also noted by staff to have ? abnormal movements concerning for seizure.. Head CT on 08/21 is unrevealing. EEG is without epileptiform activity. P: Defer AED Tx for now Hold propofol and other sedatives as able Continued medical management and supportive care per primary Will follow clinically Consultation Date/Type/Reason Admit Date/Time Jul 29, 2018 at 06:16 Type of Consult Neurology Reason for Consultation ams, ?seizure Requesting Provider: SANDI MURDOCK NP Date/Time of Note DATE: 08/24/18 TIME: 11:06 24 HR Interval Summary Free Text/Dictation Continues icu care Exam/Review of Systems Exam Vitals Vital Signs Date Temp Pulse Resp B/P (MAP) Pulse Ox O2 O2 Flow FiO2 Time Delivery Rate 08/24/18 30 08:00 08/24/18 65 18 111/49 100 Mechanical 06:30 (69) Ventilator 08/24/18 97.7 04:00 Intake and Output 08/23/18 08/23/18 08/24/18 1515:00 23:00 07:00 IntakeIntake Total 457.840 ml 331.360 ml 487.632 ml OutputOutput Total 770 ml 1675 ml 201 ml BalanceBalance -312.160 ml -1343.640 ml 286.632 ml Results Result Diagram: 08/24/18 0452 08/24/18 0452 Results 24hrs Laboratory Tests Test 08/23/18 12:03 08/23/18 13:11 08/23/18 18:05 08/23/18 19:48 Creatine Kinase 50 Creatine Kinase 38.4 Index Creatinine Kinase MB 19.20 H (Mass) Troponin I 2.340 *H Bedside Glucose 116 110 119 Test 08/24/18 01:04 08/24/18 04:52 08/24/18 05:10 08/24/18 07:53 Bedside Glucose 72 75 68 L White Blood Count 14.0 H Red Blood Count 3.42 L Hemoglobin 9.7 L Hematocrit 29.5 L Mean Corpuscular 86.3 Volume Mean Corpuscular 28.4 L Hemoglobin Mean Corpuscular 32.9 Hemoglobin Concent Red Cell 17.6 H Distribution Width Platelet Count 561 H Mean Platelet Volume 9.9 Immature 1.200 H Granulocytes % Neutrophils % 63.0 Lymphocytes % 13.9 L Monocytes % 18.0 H Eosinophils % 3.5 Basophils % 0.4 Nucleated Red Blood 1.8 H Cells % Immature 0.170 H Granulocytes # Neutrophils # 8.8 H Lymphocytes # 2.0 Monocytes # 2.5 H Eosinophils # 0.5 Basophils # 0.1 Nucleated Red Blood 0.3 H Cells # Sodium Level 141 Potassium Level 3.9 Chloride Level 117 H Carbon Dioxide Level 17 L Anion Gap 7 Blood Urea Nitrogen 38 H Creatinine 1.46 H Est Glomerular 36 L Filtrat Rate mL/min Glucose Level 55 #L Calcium Level 8.6 Phosphorus Level 3.7 Magnesium Level 2.5 Creatine Kinase 39 Creatine Kinase 37.4 Index Creatinine Kinase MB 14.60 H (Mass) Troponin I 2.240 *H Test 08/24/18 08:38 Bedside Glucose 123 Medications Medication Current Medications IV Flush (NS 3 ml) 3 ml PER PROTOCOL IV Last administered on 08/05/18 09:07; Admin Dose 3 ML; Start 07/29/18 at 06:30 Ondansetron HCl (Zofran Inj) 4 mg Q6H PRN IV NAUSEA/VOMITING Last administered on 08/18/18 18:34; Admin Dose 4 MG; Start 07/29/18 at 06:30 Acetaminophen/ Hydrocodone Bitart ([place] (5/325)) 1 tab Q6H PRN PO .MOD PAIN 4- 6 Last administered on 08/19/18 03:42; Admin Dose 1 TAB; Start 07/29/18 at 06:30 Diagnostic Test (Pha) (Accu-Chek) 1 ea 02 XX Last administered on 08/18/18 02:00; Admin Dose 1 EA; Start 07/30/18 at 02:00 Acetaminophen (Tylenol Tab) 650 mg Q6H PRN PO .PAIN 1-3 OR TEMP Last administered on 08/17/18 05:46; Admin Dose 650 MG; Start 07/29/18 at 07:00 Eye Lubricant (Akwa Oint) 1 applic Q1H PRN BOTH EYES DRY EYES; Start 07/29/18 at 08:00 Aspirin (Halfprin) 81 mg DAILY PO Last administered on 08/24/18at 10:32; Admin Dose 81 MG; Start 07/29/18 at 09:00 Atorvastatin Calcium (Lipitor) 20 mg QHS PO Last administered on 08/23/18at 20:08; Admin Dose 20 MG; Start 07/29/18 at 21:00 Clopidogrel Bisulfate (plaVIX) 75 mg DAILY PO Last administered on 08/24/18at 10:27; Admin Dose 75 MG; Start 07/29/18 at 09:00 Cyanocobalamin (Vitamin B12) 50 mcg DAILY PO Last administered on 08/24/18 10:27; Admin Dose 50 MCG; Start 07/29/18 at 09:00 Levothyroxine Sodium (Synthroid) 50 mcg BEFORE BREAKFAST PO Last administered on 08/24/18at 07:58; Admin Dose 50 MCG; Start 07/29/18 at 07:00 Polyethyl Glycol/ Propylene Glycol (Systane 0.3-0.4% Eye Drops) 1 drop Q4H PRN BOTH EYES DRY EYES; Start 07/29/18 at 08:00 Albuterol (Ventolin Hfa) 2 puff Q4H RESP THERAPY PRN INH WHEEZING; Start 07/29/18 at 09:00 Miscellaneous Information 1 ea NOTE XX ; Start 07/29/18 at 07:00 Glucose (Glutose) 15 gm Q15M PRN PO DECREASED GLUCOSE; Start 07/29/18 at 07:00 Glucose (Glutose) 22.5 gm Q15M PRN PO DECREASED GLUCOSE; Start 07/29/18 at 07:00 Dextrose (D50w Syringe) 25 ml Q15M PRN IV DECREASED GLUCOSE Last administered on 08/24/18at 07:58; Admin Dose 25 ML; Start 07/29/18 at 07:00 Dextrose (D50w Syringe) 50 ml Q15M PRN IV DECREASED GLUCOSE; Start 07/29/18 at 07:00 Glucagon (Glucagen) 1 mg Q15M PRN IM DECREASED GLUCOSE; Start 07/29/18 at 07:00 Glucose (Glutose) 15 gm Q15M PRN BUCCAL DECREASED GLUCOSE; Start 07/29/18 at 07:00 Alprazolam (Xanax) 0.25 mg Q8H PRN PO ANXIETY Last administered on 08/19/18 00:10; Admin Dose 0.25 MG; Start 07/29/18 at 12:30 Polyethylene Glycol (Miralax) 17 gm DAILY PO Last administered on 08/24/18 10:31; Admin Dose 17 GM; Start 07/29/18 at 12:30 Docusate Sodium (Colace) 100 mg BID PO Last administered on 08/24/18 10:32; Admin Dose 100 MG; Start 07/31/18 at 21:00 Magnesium Hydroxide (Milk Of Mag) 30 ml Q12H PRN PO STOMACH UPSET/CRAMPING Last administered on 07/31/18 21:28; Admin Dose 30 ML; Start 07/31/18 at 20:00 Al Hydrox/Mg Hydrox/Simethicone (Mag-Al Plus) 30 ml Q6H PRN PO GASTROINTESTINAL UPSET Last administered on 08/16/18 23:45; Admin Dose 30 ML; Start 08/03/18 at 17:30 Insulin Glargine (Lantus) 8 units DAILY@2000 SC Last administered on 08/23/18 20:07; Admin Dose 8 UNITS; Start 08/09/18 at 20:00 Albuterol/ Ipratropium (Duoneb) 3 ml Q2H RESP THERAPY PRN HHN sob Last administered on 08/19/18 03:28; Admin Dose 3 ML; Start 08/14/18 at 12:00 Diltiazem HCl (Cardizem Iv) 5 mg Q4 PRN IV HR>70 for Cardiac CTA Last administered on 08/19/18 03:50; Admin Dose 5 MG; Start 08/17/18 at 11:30 Lorazepam (Ativan) 1 mg Q8H PRN IV ANXIETY Last administered on 08/20/18 12:39; Admin Dose 1 MG; Start 08/17/18 at 15:30 Epoetin Glenn-epbx (Retacrit (Non-Esrd)) 20,000 unit TuThSa@1700 SC Last administered on 08/23/18 18:07; Admin Dose 20,000 UNIT; Start 08/18/18 at 17:00 Simethicone (Mylicon) 160 mg Q6H PRN PO DISTENSION/GAS/BLOATING Last administered on 08/18/18 08:49; Admin Dose 160 MG; Start 08/17/18 at 20:00 Propofol 100 ml @ 1.568 mls/ hr Q12H IV Last administered on 08/24/18 05:59; Admin Dose 6.272 MLS/HR; Start 08/19/18 at 09:30 Norepinephrine 250 ml @ 1.875 mls/ hr TITRATE IV Last administered on 08/20/18 08:57; Admin Dose 9.375 MLS/HR; Start 08/19/18 at 10:30 Insulin Aspart (Novolog Insulin Pen) NOVOLOG *MODERATE* ALGORI... Q4 SC Last administered on 08/21/18 01:38; Admin Dose 2 UNIT; Start 08/20/18 at 01:00 Lansoprazole (Prevacid) 30 mg DAILY@06 NGT ; Start 08/21/18 at 06:00 Piperacillin Sod/ Tazobactam Sod 100 ml @ 200 mls/hr Q8 IVPB Last administered on 08/24/18 05:11; Admin Dose 200 MLS/HR; Start 08/22/18 at 22:00 Dextrose/Sodium Chloride 1,000 ml @ 50 mls/hr Q20H IV Last administered on 08/23/18 21:53; Admin Dose 50 MLS/HR; Start 08/23/18 at 01:30 Enoxaparin Sodium (Lovenox) 50 mg DAILY SC Last administered on 08/24/18 10:29; Admin Dose 50 MG; Start 08/24/18 at 09:00 Metoprolol Tartrate (Lopressor) 25 mg BID PO Last administered on 08/24/18at 10:27; Admin Dose 25 MG; Start 08/23/18 at 21:00 GABBY CARDOZA [birth year], 2020 11:08
--- NOTE | 2018-08-24 12:39 | PN ---
DATE: 08/24/2018 SUBJECTIVE: The patient is unresponsive. Remains intubated and on propofol. VITAL SIGNS: Temperature is 97.7, pulse is 65, respirations 18, blood pressure is 111/89 and pulse o ximetry 100% on mechanical ventilator with FIO2 of 30. SKIN: No ecchymosis, no petechiae or rashes. HEENT: No mucosal lesions. No scleral icterus. There is an endotracheal tube in place. NECK: Supple, no jugular venous distention or thyroid enlargement. CHEST: Clear to auscultation and percussion. HEART: No S3, S4 or murmurs. ABDOMEN: There is a diffuse abdominal fullness. No distinct mass. EXTREMITIES: No clubbing. No edema or cyanosis. No palpable cords or Homans sign. NEUROLOGIC: Patient is sedated with propofol infusion. Chest x-ray does show some decrease in the right-sided pleural effusion. Other labs include CK of 39 , CK index of 37.4, CK2 MB fraction 14.6 and troponin 12.24. White count 14,000 with an absolute neutrophil count of 8800, hemoglobin is 9.7, hematocrit 29.5, and platelet count is 571,000. ASSESSMENT: 1. Status post cardiorespiratory arrest. 2. 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 carcinosarcoma. DISCUSSION: This patient certainly is not a candidate for any type of surgical intervention. Even i f the patient could have a hysterectomy, she already has documented hepatic metastases. We will be awaiting the findings which would allow the patient to be treated with targeted therapy. I have requested PDL 1 analysis as well as analysis for NTRK fusion. Until these are available, ther e is no other oncologic therapy indicated. Dictated By: DADA PATRICIA MD SR/NTS Conf#: [id number] DID#: [id number]
--- NOTE | 2018-08-24 13:14 | RADRPT ---
PROCEDURE: ULTRASOUND AND FLUOROSCOPICALLY-GUIDED PERCUTANEOUS PLACEMENT OF TUNNELED RIGHT PLEURAL DRAINAGE CATHETER. CLINICAL INDICATION: Large right pleural effusion and shortness of breath. TECHNIQUE: Prior to the procedure, informed consent was obtained. Risks including bleeding, infection, and pneum othorax were explained to the patient. The patient understood and was willing to proceed. A procedura l pause was performed. The patient's name, date of , and procedure to be performed were verified . The central line was inserted with all elements of maximal sterile barrier technique. All of the fo llowing were used: head covering, facial mask, sterile gown, sterile gloves, a large sterile sheet, h and hygiene, and 2% chlorhexidine for cutaneous antisepsis. The right lateral chest wall was preppe d and draped in the usual sterile fashion. Limited sonography of the right side of chest was then performed. Noted is a large right pleural effu patricia. Ultrasound images were recorded and stored in the patient's medical record. Following the local injection of Xylocaine, the right pleural space was punctured under sonographic g uidance posterior laterally at the 8/9 rib interspace with an 18-gauge needle through which a 0.035 i nch floppy tip guidewire was advanced into the right pleural space. Following this, the catheter was tunneled subcutaneously in the right chest wall. The cuff of the catheter was positioned in the subc utaneous tissues within the tunnel approximately 2 cm from the exit site of the catheter. Serial dila tation was then performed to 16-Qatari and a 16-Qatari peel-away sheath was advanced over the guidewi re. The 15.5 Q[place]ari Pleurex pleural catheter was advanced through the peel-away sheath into the right pleural space. Pleural fluid was aspirated, to verify position. The peel-away sheath was removed. Th e subcutaneous tissues were closed with running 3-0 Vicryl. The skin wound was then closed using 4-0 Vicryl and a running subcuticular technique. The catheter was secured to the skin with 2-0 silk suture. The site was dressed. The patient tolerated the procedure well. 0.5 liters pleural fluid was aspirated out of the catheter without problem. Specimens: None. Blood loss: 5 ml. Complications: None. Executive Kitchen Manager: None. Anesthesia: Local and moderate sedation. Graft/Implant: Right pleural drainage catheter. COMPARISON: 08/23/2018 FINDINGS: The final images demonstrate the pleural catheter within the right pleural space. Total fluoroscopy time is 0.2 minutes. Several images of the chest were obtained with image intensifier. IMPRESSION: 1. Satisfactory percutaneous insertion of tunneled right pleural drainage catheter with ultrasound an d fluoroscopic guidance. RPTAT: QQ Physician Steffanie Date Time Electronically viewed and signed by Jarrod Jones Physician on 08/24/2018 13:13 RD/
--- NOTE | 2018-08-24 14:02 | CONS ---
Assessment/Plan Assessment/Plan Hospital Course (Demo Recall) No acute changes overnight patient is more awake, comfortable on vent, afebrile status post right Pleurx yesterday WBC 14 platelets 561 neutrophils 63 BUN 38 creatinine 1.46 Chest x-ray this morning revealed decrease of effusion Antimicrobials: Zosyn Indwelling: Endotracheal tube NG tube Stafford catheter, femoral triple-lumen catheter, Pleurx Physical examination: Well-developed fragile elderly woman who is in no distress. Head atraumatic normocephalic sclera nonicteric vehicle mucosa dry neck is supple chest rise symmetrical breath sounds diminished bases heart: S1- S2 abdomen soft bowel sounds hypoactive extremities with trace edema Assessment: 1. Shock status post asystolic cardiopulmonary arrest 2. Respiratory failure 3. Persistent right pleural effusion likely malignant, possibly parapneumonic 4. 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 Acute kidney insufficiency 6. Diabetes 7. Pneumonia 8. Right mastoiditis Plan: Remains unchanged, continue antibiotics, follow fluid cultures Consultation Date/Type/Reason Admit Date/Time Jul 29, 2018 at 06:16 Initial Consult Date 08/15/18 Type of Consult id Requesting Provider: SANDI MURDOCK NP Date/Time of Note DATE: 08/24/18 TIME: 14:01 Exam/Review of Systems Exam Vitals Vital Signs Date Temp Pulse Resp B/P (MAP) Pulse Ox O2 O2 Flow FiO2 Time Delivery Rate 08/24/18 30 12:00 08/24/18 70 16 122/59 100 Mechanical 11:30 (80) Ventilator 08/24/18 98.8 08:00 Intake and Output 08/23/18 08/23/18 08/24/18 1515:00 23:00 07:00 IntakeIntake Total 457.840 ml 331.360 ml 544.632 ml OutputOutput Total 770 ml 1675 ml 231 ml BalanceBalance -312.160 ml -1343.640 ml 313.632 ml Results Result Diagram: 08/24/18 0452 08/24/18 0452 Results 24hrs Laboratory Tests Test 08/23/18 18:05 08/23/18 19:48 08/24/18 01:04 08/24/18 04:52 Bedside Glucose 110 119 72 White Blood Count 14.0 H Red Blood Count 3.42 L Hemoglobin 9.7 L Hematocrit 29.5 L Mean Corpuscular 86.3 Volume Mean Corpuscular 28.4 L Hemoglobin Mean Corpuscular 32.9 Hemoglobin Concent Red Cell 17.6 H Distribution Width Platelet Count 561 H Mean Platelet Volume 9.9 Immature 1.200 H Granulocytes % Neutrophils % 63.0 Lymphocytes % 13.9 L Monocytes % 18.0 H Eosinophils % 3.5 Basophils % 0.4 Nucleated Red Blood 1.8 H Cells % Immature 0.170 H Granulocytes # Neutrophils # 8.8 H Lymphocytes # 2.0 Monocytes # 2.5 H Eosinophils # 0.5 Basophils # 0.1 Nucleated Red Blood 0.3 H Cells # Sodium Level 141 Potassium Level 3.9 Chloride Level 117 H Carbon Dioxide Level 17 L Anion Gap 7 Blood Urea Nitrogen 38 H Creatinine 1.46 H Est Glomerular 36 L Filtrat Rate mL/min Glucose Level 55 #L Calcium Level 8.6 Phosphorus Level 3.7 Magnesium Level 2.5 Creatine Kinase 39 Creatine Kinase 37.4 Index Creatinine Kinase MB 14.60 H (Mass) Troponin I 2.240 *H Test 08/24/18 05:10 08/24/18 07:53 08/24/18 08:38 08/24/18 13:42 Bedside Glucose 75 68 L 123 132 Medications Medication Current Medications IV Flush (NS 3 ml) 3 ml PER PROTOCOL IV Last administered on 08/05/18 09:07; Admin Dose 3 ML; Start 07/29/18 at 06:30 Ondansetron HCl (Zofran Inj) 4 mg Q6H PRN IV NAUSEA/VOMITING Last administered on 08/18/18at 18:34; Admin Dose 4 MG; Start 07/29/18 at 06:30 Acetaminophen/ Hydrocodone Bitart ([place] (5/325)) 1 tab Q6H PRN PO .MOD PAIN 4- 6 Last administered on 08/19/18 03:42; Admin Dose 1 TAB; Start 07/29/18 at 06:30 Diagnostic Test (Pha) (Accu-Chek) 1 ea 02 XX Last administered on 08/18/18at 02:00; Admin Dose 1 EA; Start 07/30/18 at 02:00 Acetaminophen (Tylenol Tab) 650 mg Q6H PRN PO .PAIN 1-3 OR TEMP Last administered on 08/17/18at 05:46; Admin Dose 650 MG; Start 07/29/18 at 07:00 Eye Lubricant (Akwa Oint) 1 applic Q1H PRN BOTH EYES DRY EYES; Start 07/29/18 at 08:00 Aspirin (Halfprin) 81 mg DAILY PO Last administered on 08/24/18at 10:32; Admin Dose 81 MG; Start 07/29/18 at 09:00 Atorvastatin Calcium (Lipitor) 20 mg QHS PO Last administered on 08/23/18at 20:08; Admin Dose 20 MG; Start 07/29/18 at 21:00 Clopidogrel Bisulfate (plaVIX) 75 mg DAILY PO Last administered on 08/24/18 10:27; Admin Dose 75 MG; Start 07/29/18 at 09:00 Cyanocobalamin (Vitamin B12) 50 mcg DAILY PO Last administered on 08/24/18 10:27; Admin Dose 50 MCG; Start 07/29/18 at 09:00 Levothyroxine Sodium (Synthroid) 50 mcg BEFORE BREAKFAST PO Last administered on 08/24/18at 07:58; Admin Dose 50 MCG; Start 07/29/18 at 07:00 Polyethyl Glycol/ Propylene Glycol (Systane 0.3-0.4% Eye Drops) 1 drop Q4H PRN BOTH EYES DRY EYES; Start 07/29/18 at 08:00 Albuterol (Ventolin Hfa) 2 puff Q4H RESP THERAPY PRN INH WHEEZING; Start 07/29/18 at 09:00 Miscellaneous Information 1 ea NOTE XX ; Start 07/29/18 at 07:00 Glucose (Glutose) 15 gm Q15M PRN PO DECREASED GLUCOSE; Start 07/29/18 at 07:00 Glucose (Glutose) 22.5 gm Q15M PRN PO DECREASED GLUCOSE; Start 07/29/18 at 07:00 Dextrose (D50w Syringe) 25 ml Q15M PRN IV DECREASED GLUCOSE Last administered on 08/24/18at 07:58; Admin Dose 25 ML; Start 07/29/18 at 07:00 Dextrose (D50w Syringe) 50 ml Q15M PRN IV DECREASED GLUCOSE; Start 07/29/18 at 07:00 Glucagon (Glucagen) 1 mg Q15M PRN IM DECREASED GLUCOSE; Start 07/29/18 at 07:00 Glucose (Glutose) 15 gm Q15M PRN BUCCAL DECREASED GLUCOSE; Start 07/29/18 at 07:00 Alprazolam (Xanax) 0.25 mg Q8H PRN PO ANXIETY Last administered on 08/19/18 00:10; Admin Dose 0.25 MG; Start 07/29/18 at 12:30 Polyethylene Glycol (Miralax) 17 gm DAILY PO Last administered on 08/24/18 10:31; Admin Dose 17 GM; Start 07/29/18 at 12:30 Docusate Sodium (Colace) 100 mg BID PO Last administered on 08/24/18 10:32; Admin Dose 100 MG; Start 07/31/18 at 21:00 Magnesium Hydroxide (Milk Of Mag) 30 ml Q12H PRN PO STOMACH UPSET/CRAMPING Last administered on 07/31/18 21:28; Admin Dose 30 ML; Start 07/31/18 at 20:00 Al Hydrox/Mg Hydrox/Simethicone (Mag-Al Plus) 30 ml Q6H PRN PO GASTROINTESTINAL UPSET Last administered on 08/16/18 23:45; Admin Dose 30 ML; Start 08/03/18 at 17:30 Insulin Glargine (Lantus) 8 units DAILY@2000 SC Last administered on 08/23/18 20:07; Admin Dose 8 UNITS; Start 08/09/18 at 20:00 Albuterol/ Ipratropium (Duoneb) 3 ml Q2H RESP THERAPY PRN HHN sob Last administered on 08/19/18 03:28; Admin Dose 3 ML; Start 08/14/18 at 12:00 Diltiazem HCl (Cardizem Iv) 5 mg Q4 PRN IV HR>70 for Cardiac CTA Last administered on 08/19/18 03:50; Admin Dose 5 MG; Start 08/17/18 at 11:30 Lorazepam (Ativan) 1 mg Q8H PRN IV ANXIETY Last administered on 08/20/18 12:39; Admin Dose 1 MG; Start 08/17/18 at 15:30 Epoetin Glenn-epbx (Retacrit (Non-Esrd)) 20,000 unit TuThSa@1700 SC Last administered on 08/23/18 18:07; Admin Dose 20,000 UNIT; Start 08/18/18 at 17:00 Simethicone (Mylicon) 160 mg Q6H PRN PO DISTENSION/GAS/BLOATING Last administered on 08/18/18 08:49; Admin Dose 160 MG; Start 08/17/18 at 20:00 Propofol 100 ml @ 1.568 mls/ hr Q12H IV Last administered on 08/24/18 05:59; Admin Dose 6.272 MLS/HR; Start 08/19/18 at 09:30 Norepinephrine 250 ml @ 1.875 mls/ hr TITRATE IV Last administered on 08/20/18 08:57; Admin Dose 9.375 MLS/HR; Start 08/19/18 at 10:30 Insulin Aspart (Novolog Insulin Pen) NOVOLOG *MODERATE* ALGORI... Q4 SC Last administered on 08/21/18 01:38; Admin Dose 2 UNIT; Start 08/20/18 at 01:00 Lansoprazole (Prevacid) 30 mg DAILY@06 NGT ; Start 08/21/18 at 06:00 Piperacillin Sod/ Tazobactam Sod 100 ml @ 200 mls/hr Q8 IVPB Last administered on 08/24/18 13:38; Admin Dose 200 MLS/HR; Start 08/22/18 at 22:00 Dextrose/Sodium Chloride 1,000 ml @ 50 mls/hr Q20H IV Last administered on 08/23/18 21:53; Admin Dose 50 MLS/HR; Start 08/23/18 at 01:30 Enoxaparin Sodium (Lovenox) 50 mg DAILY SC Last administered on 08/24/18 10:29; Admin Dose 50 MG; Start 08/24/18 at 09:00 Metoprolol Tartrate (Lopressor) 25 mg BID PO Last administered on 08/24/18 10: 27; Admin Dose 25 MG; Start 08/23/18 at 21:00 DENISSE THAO NP Aug 24, 2018 14:02
[2018-08-24] MEDS: DEXTROSE 5%-0.45% NACL 1,000 ML IV SCH (18:23)
[2018-08-24] MEDS: ATORVASTATIN 20 MG TAB PO SCH (20:25)
[2018-08-24] MEDS: INSULIN GLARGINE [LANTus] (100 UNITS/ML) SYG SC SCH (20:27)
[2018-08-25] VITALS (56 sets, daily range): BP systolic 93–140; BP diastolic 42–72; PULSE 58–93; RESP 11–28
[2018-08-25] MEDS: INSULIN ASPART [NOVOLOG] 3 ML PEN SC SCH ×6 (01:38→20:46)
[2018-08-25] MEDS: ACCU-CHEK XX SCH (01:42)
[2018-08-25] MEDS: PIPER-TAZO 3.375 GM IV (PMX) 100 ML IVPB SCH ×3 (05:32→22:12)
[2018-08-25] MEDS: LANSOPRAZOLE 30 MG CAP NGT SCH (05:32)
[2018-08-25] MEDS: LEVOTHYROXINE 50 MCG TAB PO SCH (06:02)
[2018-08-25] MEDS: POTASSIUM CHLORIDE 100 ML IVPB SCH ×2 (06:06→09:04)
--- NOTE | 2018-08-25 08:20 | PN ---
DATE: 08/25/2018 SUBJECTIVE: The patient remains critically on full ventilatory support. The patient's urinary outpu t has been marginal, approximately 300 mL overnight. No other events noted. No hemoptysis, hemateme sis, hematochezia. OBJECTIVE: VITAL SIGNS: Blood pressure is 140/72, respirations 25, pulse 93, temperature 98.0. HEENT: Head is normocephalic. NECK: Supple. HEART: Regular rate. LUNGS: Show diminished breath sounds at the base. ABDOMEN: Soft, nontender to palpation without rebound or guarding. EXTREMITIES: Negative for clubbing, cyanosis. Positive edema. DERMATOLOGIC: No rashes. MUSCULOSKELETAL: No joint effusion. NEUROLOGIC: No change in exam. MEDICATIONS: Reviewed. LABORATORY DATA: Has been reviewed. IMAGING STUDIES: Have been reviewed. ASSESSMENT AND PLAN: 1. Nonoliguric acute kidney injury with previous baseline creatinine around 1.2 to 1.4 mg/dL. Etiol ogy of acute kidney injury is secondary to hemodynamics, possible tubular injury. The patient's sujata l function has declined in the last 24 to 48 hours, urinary output has diminished. At this point, we will repeat the UA with microanalysis, check urine electrolytes. We will continue to monitor renal function closely. Would defer any contrast study at this time until renal function stabilizes. Othe rwise, continue supportive care, and renally dose all meds, avoid nephrotoxins. 2. Volume overload. Etiology is multifactorial. IV fluids. 3. Diastolic heart failure. Continue to monitor, we will give intermittent diuretic therapy as need ed. 4. Anemia. Monitor hemoglobin and hematocrit levels. 5. Hypokalemia. Continue to monitor and replete. 6. Mineral bone disorder, monitor calcium and phosphorus levels. 7. Ventilatory dependent respiratory failure. Vent settings and ABG was reviewed. Continue to [facility]. Follow up with pulmonary. 8. Pleural effusion, status post PleurX catheter placement. 9. Coronary artery disease. Continue medical management. Follow up with Cardiology. 10. Diabetes. Continue current insulin regimen. 11. Hypothyroidism. Continue Synthroid. 12. Metastatic carcinosarcoma of the uterus. Continue to monitor. Follow up with oncology. 13. Sepsis, status post shock. Continue current antibiotic regimen. 14. Status post cardiac arrest. 15. Encephalopathy, etiology is toxic metabolic. Dictated By: JACOB KAUFMAN/EMA Conf#: [id number] DID#: [id number]
[2018-08-25] MEDS: DOCUSATE SODIUM 100 MG CAP PO SCH ×2 (08:41→20:43)
--- NOTE | 2018-08-25 08:58 | PN ---
Date/Time of Note Date/Time of Note DATE: 08/25/18 TIME: 08:57 Assessment/Plan VTE Prophylaxis Risk score (from Ns)>0 risk: 7 SCD applied (from [facility] [place] SCD contraindicated: other Pharmacological prophylaxis: LMWH Lines/Catheters IV Catheter Type (from [facility]): Central Line Central line still needed: Yes Urinary Cath still in place: Yes Reason Cath still needed: other (indicate) Assessment/Plan Hospital Course SUBJECTIVE: Remains intubated. On propofol. OBJECTIVE: Physical Exam General: Adequately build 68 year-old female lying in bed in no apparent distress. HEENT: Normocephalic, atraumatic. Eyes: Anicteric sclerae, conjunctivae clear. ENT: Nasal septum midline, oral mucosa is dry. Neck supple, no JVD noticed. Respiratory: Bilaterally diminished breath sounds. ETT to mechanical ventil ator. Cardiovascular: S1, S2 heard. Regular rate and rhythm. Abdomen: Soft, nontender, and nondistended. Bowel sounds positive in all 4 quadrants. Genitourinary: Deferred. Extremities: No cyanosis, no clubbing. Bilateral lower extremity 1+ edema. Neurologic: The patient is awake. Tracks movements. Moves all 4 extremities. Does not follow commands. Labs & Vitals per chart ASSESSMENT & PLAN This is a 68-year-old female with past medical history of diabetes mellitus, p eripheral artery disease, stroke, dyslipidemia, and hypothyroidism. The patient presented to the emergency room with multiple complaints including bilateral lower extremity edema, unintentional weight loss, etc. The patient was admitted to inpatient setting for further treatment and evaluation. The patient underwent a CT scan of the abdomen and pelvis on 08/01/2018 that showed abnormal enlargement of the uterus with significant thickening of the endometrial stripe with pelvis MRI showing irregular 9 cm exophytic posterior uterine mass. 1. Metastatic carcinosarcoma of uterus. Being followed by oncology. A poor candidate for chemo as per oncology. 2. Malignant pleural effusion. Status post right-sided thoracentesis on 08/15/2018. S/P Pleurx catheter placement on 08/23/2018. 3. Positive Lexiscan myocardial perfusion study. Study positive for partially reversible perfusion defect in the distal anterior wall. Being followed by cardiology. Continue aspirin plus Plavix. 4. Status post cardiopulmonary arrest on 08/19/2018. Etiology could be secondary to underlying hypoxia versus others. Intubated and on pressors. Poor prognosis. 5. NSTEMI on 08/22/2018. Continue antiplatelet therapy. Cardiology following. 6. Peripheral artery disease. Being followed by vascular surgery. Optimize medical management. Continue aspirin plus Plavix. Continue statins. 7. Diabetes mellitus. Hemoglobin A1c 6.3. Continue sliding scale insulin along with basal. 8. Hypothyroidism. Continue Synthroid. 9. Acute kidney injury. Being followed by nephrology. Use nephrotoxic drugs with caution. 10. Normocytic anemia. Monitor H&H closely. Continue Epogen. 11. Acute respiratory failure. Hypoxic. Ventilator management as per pulmonology. 12. S/P Shock. S/P IV pressors for blood pressure support. 13. Fluids, electrolytes, and nutrition. NPO. NGT feeds. 14. DVT prophylaxis. Subcutaneous Lovenox. 15. Plan. Continue current management. Poor prognosis. As per the conversation with the patient's son Yaima on 08/22/2018, they want the patient to remain a full code. Palliative care following. Pending family conference. The patient was seen in collaboration with Dr. Hancock. Critical care time: 35 mins. Result Diagram: 08/25/18 0410 08/25/18 0410 Results 24hrs Laboratory Tests Test 08/24/18 13:42 08/24/18 17:59 08/24/18 20:01 08/25/18 01:26 Bedside Glucose 132 114 131 148 Test 08/25/18 04:10 08/25/18 05:02 White Blood Count 16.0 H Red Blood Count 3.53 L Hemoglobin 9.9 L Hematocrit 30.1 L Mean Corpuscular 85.3 Volume Mean Corpuscular 28.0 L Hemoglobin Mean Corpuscular 32.9 Hemoglobin Concent Red Cell 17.2 H Distribution Width Platelet Count 557 H Mean Platelet Volume 10.2 Immature 4.000 H Granulocytes % Neutrophils % 59.4 Lymphocytes % 15.1 Monocytes % 17.3 H Eosinophils % 3.5 Basophils % 0.7 Nucleated Red Blood 2.8 H Cells % Immature 0.640 H Granulocytes # Neutrophils # 9.5 H Lymphocytes # 2.4 Monocytes # 2.8 H Eosinophils # 0.6 H Basophils # 0.1 Nucleated Red Blood 0.5 H Cells # Sodium Level 141 Potassium Level 3.2 L Chloride Level 114 H Carbon Dioxide Level 17 L Anion Gap 10 Blood Urea Nitrogen 39 H Creatinine 1.83 H Est Glomerular 27 L Filtrat Rate mL/min Glucose Level 154 Calcium Level 8.5 Phosphorus Level 3.7 Magnesium Level 2.4 Bedside Glucose 137 Exam/Review of Systems Exam Vitals Vital Signs Date Temp Pulse Resp B/P (MAP) Pulse Ox O2 O2 Flow FiO2 Time Delivery Rate 08/25/18 85 08:00 08/25/18 25 140/72 100 Mechanical 06:30 (94) Ventilator 08/25/18 30 05:30 08/25/18 98.0 04:00 Intake and Output 08/24/18 08/24/18 08/25/18 1515:00 23:00 07:00 IntakeIntake Total 360.7 ml 394.112 ml 427.248 ml OutputOutput Total 155 ml 91 ml 90 ml BalanceBalance 205.7 ml 303.112 ml 337.248 ml Results Results 24hrs Laboratory Tests Test 08/24/18 13:42 08/24/18 17:59 08/24/18 20:01 08/25/18 01:26 Bedside Glucose 132 114 131 148 Test 08/25/18 04:10 08/25/18 05:02 White Blood Count 16.0 H Red Blood Count 3.53 L Hemoglobin 9.9 L Hematocrit 30.1 L Mean Corpuscular 85.3 Volume Mean Corpuscular 28.0 L Hemoglobin Mean Corpuscular 32.9 Hemoglobin Concent Red Cell 17.2 H Distribution Width Platelet Count 557 H Mean Platelet Volume 10.2 Immature 4.000 H Granulocytes % Neutrophils % 59.4 Lymphocytes % 15.1 Monocytes % 17.3 H Eosinophils % 3.5 Basophils % 0.7 Nucleated Red Blood 2.8 H Cells % Immature 0.640 H Granulocytes # Neutrophils # 9.5 H Lymphocytes # 2.4 Monocytes # 2.8 H Eosinophils # 0.6 H Basophils # 0.1 Nucleated Red Blood 0.5 H Cells # Sodium Level 141 Potassium Level 3.2 L Chloride Level 114 H Carbon Dioxide Level 17 L Anion Gap 10 Blood Urea Nitrogen 39 H Creatinine 1.83 H Est Glomerular 27 L Filtrat Rate mL/min Glucose Level 154 Calcium Level 8.5 Phosphorus Level 3.7 Magnesium Level 2.4 Bedside Glucose 137 Medications Medication Current Medications IV Flush (NS 3 ml) 3 ml PER PROTOCOL IV Last administered on 6/9/19at 09:07; Admin Dose 3 ML; Start 07/29/18 at 06:30 Ondansetron HCl (Zofran Inj) 4 mg Q6H PRN IV NAUSEA/VOMITING Last administered on 08/18/18 18:34; Admin Dose 4 MG; Start 07/29/18 at 06:30 Acetaminophen/ Hydrocodone Bitart ([place] (5/325)) 1 tab Q6H PRN PO .MOD PAIN 4- 6 Last administered on 08/19/18 03:42; Admin Dose 1 TAB; Start 07/29/18 at 06:30 Diagnostic Test (Pha) (Accu-Chek) 1 ea 02 XX Last administered on 08/18/18 02:00; Admin Dose 1 EA; Start 07/30/18 at 02:00 Acetaminophen (Tylenol Tab) 650 mg Q6H PRN PO .PAIN 1-3 OR TEMP Last administered on 08/17/18 05:46; Admin Dose 650 MG; Start 07/29/18 at 07:00 Eye Lubricant (Akwa Oint) 1 applic Q1H PRN BOTH EYES DRY EYES; Start 07/29/18 at 08:00 Aspirin (Halfprin) 81 mg DAILY PO Last administered on 08/24/18 10:32; Admin Dose 81 MG; Start 07/29/18 at 09:00 Atorvastatin Calcium (Lipitor) 20 mg QHS PO Last administered on 08/24/18 20:25; Admin Dose 20 MG; Start 07/29/18 at 21:00 Clopidogrel Bisulfate (plaVIX) 75 mg DAILY PO Last administered on 08/24/18 10:27; Admin Dose 75 MG; Start 07/29/18 at 09:00 Cyanocobalamin (Vitamin B12) 50 mcg DAILY PO Last administered on 08/24/18 10:27; Admin Dose 50 MCG; Start 07/29/18 at 09:00 Levothyroxine Sodium (Synthroid) 50 mcg BEFORE BREAKFAST PO Last administered on 08/25/18 06:02; Admin Dose 50 MCG; Start 07/29/18 at 07:00 Polyethyl Glycol/ Propylene Glycol (Systane 0.3-0.4% Eye Drops) 1 drop Q4H PRN BOTH EYES DRY EYES; Start 07/29/18 at 08:00 Albuterol (Ventolin Hfa) 2 puff Q4H RESP THERAPY PRN INH WHEEZING; Start 07/29/18 at 09:00 Miscellaneous Information 1 ea NOTE XX ; Start 07/29/18 at 07:00 Glucose (Glutose) 15 gm Q15M PRN PO DECREASED GLUCOSE; Start 07/29/18 at 07:00 Glucose (Glutose) 22.5 gm Q15M PRN PO DECREASED GLUCOSE; Start 07/29/18 at 07:00 Dextrose (D50w Syringe) 25 ml Q15M PRN IV DECREASED GLUCOSE Last administered on 08/24/18at 07:58; Admin Dose 25 ML; Start 07/29/18 at 07:00 Dextrose (D50w Syringe) 50 ml Q15M PRN IV DECREASED GLUCOSE; Start 07/29/18 at 07:00 Glucagon (Glucagen) 1 mg Q15M PRN IM DECREASED GLUCOSE; Start 07/29/18 at 07:00 Glucose (Glutose) 15 gm Q15M PRN BUCCAL DECREASED GLUCOSE; Start 07/29/18 at 07:00 Alprazolam (Xanax) 0.25 mg Q8H PRN PO ANXIETY Last administered on 08/19/18at 00:10; Admin Dose 0.25 MG; Start 07/29/18 at 12:30 Polyethylene Glycol (Miralax) 17 gm DAILY PO Last administered on 08/24/18at 10:31; Admin Dose 17 GM; Start 07/29/18 at 12:30 Docusate Sodium (Colace) 100 mg BID PO Last administered on 08/24/18at 20:25; Admin Dose 100 MG; Start 07/31/18 at 21:00 Magnesium Hydroxide (Milk Of Mag) 30 ml Q12H PRN PO STOMACH UPSET/CRAMPING Last administered on 07/31/18at 21:28; Admin Dose 30 ML; Start 07/31/18 at 20:00 Al Hydrox/Mg Hydrox/Simethicone (Mag-Al Plus) 30 ml Q6H PRN PO GASTROINTESTINAL UPSET Last administered on 08/16/18at 23:45; Admin Dose 30 ML; Start 08/03/18 at 17:30 Insulin Glargine (Lantus) 8 units DAILY@2000 SC Last administered on 08/24/18at 20:27; Admin Dose 8 UNITS; Start 08/09/18 at 20:00 Albuterol/ Ipratropium (Duoneb) 3 ml Q2H RESP THERAPY PRN HHN sob Last administered on 08/19/18 03:28; Admin Dose 3 ML; Start 08/14/18 at 12:00 Diltiazem HCl (Cardizem Iv) 5 mg Q4 PRN IV HR>70 for Cardiac CTA Last administered on 08/19/18 03:50; Admin Dose 5 MG; Start 08/17/18 at 11:30 Lorazepam (Ativan) 1 mg Q8H PRN IV ANXIETY Last administered on 08/20/18 12:39; Admin Dose 1 MG; Start 08/17/18 at 15:30 Epoetin Glenn-epbx (Retacrit (Non-Esrd)) 20,000 unit TuThSa@1700 SC Last administered on 08/23/18 18:07; Admin Dose 20,000 UNIT; Start 08/18/18 at 17:00 Simethicone (Mylicon) 160 mg Q6H PRN PO DISTENSION/GAS/BLOATING Last administered on 08/18/18 08:49; Admin Dose 160 MG; Start 08/17/18 at 20:00 Propofol 100 ml @ 1.568 mls/ hr Q12H IV Last administered on 08/24/18 18:25; Admin Dose 6.272 MLS/HR; Start 08/19/18 at 09:30 Norepinephrine 250 ml @ 1.875 mls/ hr TITRATE IV Last administered on 08/20/18 08:57; Admin Dose 9.375 MLS/HR; Start 08/19/18 at 10:30 Insulin Aspart (Novolog Insulin Pen) NOVOLOG *MODERATE* ALGORI... Q4 SC Last administered on 08/25/18 01:38; Admin Dose 2 UNIT; Start 08/20/18 at 01:00 Lansoprazole (Prevacid) 30 mg DAILY@06 NGT Last administered on 08/25/18 05:32; Admin Dose 30 MG; Start 08/21/18 at 06:00 Piperacillin Sod/ Tazobactam Sod 100 ml @ 200 mls/hr Q8 IVPB Last administered on 08/25/18 05:32; Admin Dose 200 MLS/HR; Start 08/22/18 at 22:00 Dextrose/Sodium Chloride 1,000 ml @ 50 mls/hr Q20H IV Last administered on 08/24/18at 18:23; Admin Dose 50 MLS/HR; Start 08/23/18 at 01:30 Enoxaparin Sodium (Lovenox) 50 mg DAILY SC Last administered on 08/24/18at 10:29; Admin Dose 50 MG; Start 08/24/18 at 09:00 Metoprolol Tartrate (Lopressor) 25 mg BID PO Last administered on 08/24/18at 10:27; Admin Dose 25 MG; Start 08/23/18 at 21:00 Potassium Chloride 100 ml @ 50 mls/hr Q2H IVPB Last administered on 08/25/18at 06:06; Admin Dose 50 MLS/HR; Start 08/25/18 at 07:00; Stop 08/25/18 at 10:59 SANDI MURDOCK NP Aug 25, 2018 08:58
[2018-08-25] MEDS: METOPROLOL 25 MG TAB PO SCH ×2 (09:05→20:43)
[2018-08-25] MEDS: CYANOCOBALAMIN 100 MCG TAB PO SCH (09:05)
[2018-08-25] MEDS: ASPIRIN (EC) 81 MG TAB PO SCH (09:05)
[2018-08-25] MEDS: CLOPIDOGREL 75 MG TAB PO SCH (09:05)
[2018-08-25] MEDS: ENOXAPARIN 60 MG/0.6 ML SYG SC SCH (09:06)
[2018-08-25] MEDS: PROPOFOL 100 ML IV SCH ×2 (09:16→18:08)
[2018-08-25] MEDS: POLYETHYLENE GLYCOL 17 GM PACKET PO SCH (09:16)
--- NOTE | 2018-08-25 09:20 | CONS ---
Consult Date/Type/Reason Admit Date/Time Jul 29, 2018 at 06:16 Initial Consult Date 08/15/18 Type of Consult Pulmonary Requesting Provider: SANDI MURDOCK NP Date/Time of Note DATE: 08/25/18 TIME: 09:19 Subjective Patient more alert today on mechanical ventilation. Failed weaning trial yesterday tolerated only a few minutes of CPAP trial. Objective Vital Signs Date Temp Pulse Resp B/P (MAP) Pulse Ox O2 O2 Flow FiO2 Time Delivery Rate 08/25/18 85 08:00 08/25/18 25 140/72 100 Mechanical 06:30 (94) Ventilator 08/25/18 30 05:30 08/25/18 98.0 04:00 Intake and Output 08/24/18 08/24/18 08/25/18 1515:00 23:00 07:00 IntakeIntake Total 360.7 ml 394.112 ml 427.248 ml OutputOutput Total 155 ml 91 ml 90 ml BalanceBalance 205.7 ml 303.112 ml 337.248 ml Exam GENERAL: Elderly appearing lady orally intubated on mechanical ventilation VITAL SIGNS: per chart NECK: Supple. No JVD or lymphadenopathy. CARDIAC EXAM: S1, S2. No added sounds or murmurs. CHEST: Diminished air entry right side greater than left ABDOMEN: Soft, nontender. No guarding or rebound. EXTREMITIES: No cyanosis, clubbing or edema. NEUROLOGIC: Generalized weakness. No focal deficits Vent Setting Ventilator Support Mode: AC, VC plus Fraction of Inspired Oxygen pe: 30 Positive End Expiratory Pressu: 5.0 Results/Medications Result Diagram: 08/25/18 0410 08/25/18 0410 Results 24 hrs Laboratory Tests Test 08/24/18 13:42 08/24/18 17:59 08/24/18 20:01 08/25/18 01:26 Bedside Glucose 132 114 131 148 Test 08/25/18 04:10 08/25/18 05:02 08/25/18 09:00 White Blood Count 16.0 H Red Blood Count 3.53 L Hemoglobin 9.9 L Hematocrit 30.1 L Mean Corpuscular 85.3 Volume Mean Corpuscular 28.0 L Hemoglobin Mean Corpuscular 32.9 Hemoglobin Concent Red Cell 17.2 H Distribution Width Platelet Count 557 H Mean Platelet Volume 10.2 Immature 4.000 H Granulocytes % Neutrophils % 59.4 Lymphocytes % 15.1 Monocytes % 17.3 H Eosinophils % 3.5 Basophils % 0.7 Nucleated Red Blood 2.8 H Cells % Immature 0.640 H Granulocytes # Neutrophils # 9.5 H Lymphocytes # 2.4 Monocytes # 2.8 H Eosinophils # 0.6 H Basophils # 0.1 Nucleated Red Blood 0.5 H Cells # Sodium Level 141 Potassium Level 3.2 L Chloride Level 114 H Carbon Dioxide Level 17 L Anion Gap 10 Blood Urea Nitrogen 39 H Creatinine 1.83 H Est Glomerular 27 L Filtrat Rate mL/min Glucose Level 154 Calcium Level 8.5 Phosphorus Level 3.7 Magnesium Level 2.4 Bedside Glucose 137 149 Medications Current Medications IV Flush (NS 3 ml) 3 ml PER PROTOCOL IV Last administered on 08/05/18 09:07; Ad min Dose 3 ML; Start 07/29/18 at 06:30 Ondansetron HCl (Zofran Inj) 4 mg Q6H PRN IV NAUSEA/VOMITING Last administered on 08/18/18 18:34; Admin Dose 4 MG; Start 07/29/18 at 06:30 Acetaminophen/ Hydrocodone Bitart ([place] (5/325)) 1 tab Q6H PRN PO .MOD PAIN 4- 6 Last administered on 08/19/18 03:42; Admin Dose 1 TAB; Start 07/29/18 at 06:30 Diagnostic Test (Pha) (Accu-Chek) 1 ea 02 XX Last administered on 08/18/18 02:00; Admin Dose 1 EA; Start 07/30/18 at 02:00 Acetaminophen (Tylenol Tab) 650 mg Q6H PRN PO .PAIN 1-3 OR TEMP Last administered on 08/17/18 05:46; Admin Dose 650 MG; Start 07/29/18 at 07:00 Eye Lubricant (Akwa Oint) 1 applic Q1H PRN BOTH EYES DRY EYES; Start 07/29/18 at 08:00 Aspirin (Halfprin) 81 mg DAILY PO Last administered on 08/25/18 09:05; Admin Dose 81 MG; Start 07/29/18 at 09:00 Atorvastatin Calcium (Lipitor) 20 mg QHS PO Last administered on 08/24/18 20:25; Admin Dose 20 MG; Start 07/29/18 at 21:00 Clopidogrel Bisulfate (plaVIX) 75 mg DAILY PO Last administered on 08/25/18 09:05; Admin Dose 75 MG; Start 07/29/18 at 09:00 Cyanocobalamin (Vitamin B12) 50 mcg DAILY PO Last administered on 08/25/18 09:05; Admin Dose 50 MCG; Start 07/29/18 at 09:00 Levothyroxine Sodium (Synthroid) 50 mcg BEFORE BREAKFAST PO Last administered on 08/25/18 06:02; Admin Dose 50 MCG; Start 07/29/18 at 07:00 Polyethyl Glycol/ Propylene Glycol (Systane 0.3-0.4% Eye Drops) 1 drop Q4H PRN BOTH EYES DRY EYES; Start 07/29/18 at 08:00 Albuterol (Ventolin Hfa) 2 puff Q4H RESP THERAPY PRN INH WHEEZING; Start 07/29/18 at 09:00 Miscellaneous Information 1 ea NOTE XX ; Start 07/29/18 at 07:00 Glucose (Glutose) 15 gm Q15M PRN PO DECREASED GLUCOSE; Start 07/29/18 at 07:00 Glucose (Glutose) 22.5 gm Q15M PRN PO DECREASED GLUCOSE; Start 07/29/18 at 07:00 Dextrose (D50w Syringe) 25 ml Q15M PRN IV DECREASED GLUCOSE Last administered on 08/24/18at 07:58; Admin Dose 25 ML; Start 07/29/18 at 07:00 Dextrose (D50w Syringe) 50 ml Q15M PRN IV DECREASED GLUCOSE; Start 07/29/18 at 07:00 Glucagon (Glucagen) 1 mg Q15M PRN IM DECREASED GLUCOSE; Start 07/29/18 at 07:00 Glucose (Glutose) 15 gm Q15M PRN BUCCAL DECREASED GLUCOSE; Start 07/29/18 at 07:00 Alprazolam (Xanax) 0.25 mg Q8H PRN PO ANXIETY Last administered on 08/19/18at 00:10; Admin Dose 0.25 MG; Start 07/29/18 at 12:30 Polyethylene Glycol (Miralax) 17 gm DAILY PO Last administered on 08/25/18 09:16; Admin Dose 17 GM; Start 07/29/18 at 12:30 Docusate Sodium (Colace) 100 mg BID PO Last administered on 08/24/18at 20:25; Admin Dose 100 MG; Start 07/31/18 at 21:00 Magnesium Hydroxide (Milk Of Mag) 30 ml Q12H PRN PO STOMACH UPSET/CRAMPING Last administered on 07/31/18 21:28; Admin Dose 30 ML; Start 07/31/18 at 20:00 Al Hydrox/Mg Hydrox/Simethicone (Mag-Al Plus) 30 ml Q6H PRN PO GASTROINTESTINAL UPSET Last administered on 08/16/18 23:45; Admin Dose 30 ML; Start 08/03/18 at 17:30 Insulin Glargine (Lantus) 8 units DAILY@2000 SC Last administered on 08/24/18 20:27; Admin Dose 8 UNITS; Start 08/09/18 at 20:00 Albuterol/ Ipratropium (Duoneb) 3 ml Q2H RESP THERAPY PRN HHN sob Last administered on 08/19/18 03:28; Admin Dose 3 ML; Start 08/14/18 at 12:00 Diltiazem HCl (Cardizem Iv) 5 mg Q4 PRN IV HR>70 for Cardiac CTA Last admini stered on 08/19/18 03:50; Admin Dose 5 MG; Start 08/17/18 at 11:30 Lorazepam (Ativan) 1 mg Q8H PRN IV ANXIETY Last administered on 08/20/18 12:39; Admin Dose 1 MG; Start 08/17/18 at 15:30 Epoetin Glenn-epbx (Retacrit (Non-Esrd)) 20,000 unit TuThSa@1700 SC Last administered on 08/23/18 18:07; Admin Dose 20,000 UNIT; Start 08/18/18 at 17:00 Simethicone (Mylicon) 160 mg Q6H PRN PO DISTENSION/GAS/BLOATING Last administered on 08/18/18 08:49; Admin Dose 160 MG; Start 08/17/18 at 20:00 Propofol 100 ml @ 1.568 mls/ hr Q12H IV Last administered on 08/24/18 18:25; Admin Dose 6.272 MLS/HR; Start 08/19/18 at 09:30 Norepinephrine 250 ml @ 1.875 mls/ hr TITRATE IV Last administered on 6/24/19a t 08:57; Admin Dose 9.375 MLS/HR; Start 08/19/18 at 10:30 Insulin Aspart (Novolog Insulin Pen) NOVOLOG *MODERATE* ALGORI... Q4 SC Last administered on 08/25/18at 09:08; Admin Dose 2 UNIT; Start 08/20/18 at 01:00 Lansoprazole (Prevacid) 30 mg DAILY@06 NGT Last administered on 08/25/18 05:32; Admin Dose 30 MG; Start 08/21/18 at 06:00 Piperacillin Sod/ Tazobactam Sod 100 ml @ 200 mls/hr Q8 IVPB Last administered on 08/25/18 05:32; Admin Dose 200 MLS/HR; Start 08/22/18 at 22:00 Dextrose/Sodium Chloride 1,000 ml @ 50 mls/hr Q20H IV Last administered on 08/24/18at 18:23; Admin Dose 50 MLS/HR; Start 08/23/18 at 01:30 Enoxaparin Sodium (Lovenox) 50 mg DAILY SC Last administered on 08/25/18at 0 9:06; Admin Dose 50 MG; Start 08/24/18 at 09:00 Metoprolol Tartrate (Lopressor) 25 mg BID PO Last administered on 08/25/18at 09:05; Admin Dose 25 MG; Start 08/23/18 at 21:00 Potassium Chloride 100 ml @ 50 mls/hr Q2H IVPB Last administered on 08/25/18 09:04; Admin Dose 50 MLS/HR; Start 08/25/18 at 07:00; Stop 08/25/18 at 10:59 Assessment/Plan Hospital Course (Demo Recall) Assessment 1. Status post cardiopulmonary arrest 2. Encephalopathy possibly toxic metabolic 3. Status post septic shock, off vasopressors at present. 4. Recurrent right pleural effusion probably metastatic in nature 5. Metastatic uterine cancer Plan 1. Continue mechanical ventilation, will attempt CPAP trial as neurological status continues to slowly improve despite encephalopathy 2. Right Pleurx catheter, continue free drainage as tolerated, repeat chest x- ray 3. Decrease vasopressors as tolerated, titrate to keep map greater than 65. 4. Overall prognosis very poor patient may not be able to be liberated from mechanical ventilation. Appreciate palliative care recommendations. Family wish to continue all aggressive measures for now. Critical care time 40 minutes FARHAN VALENTINO MD, [facility] Aug 25, 2018 09:20
--- NOTE | 2018-08-25 09:23 | CONS ---
Assessment/Plan Assessment/Plan Assessment/Plan (Recall) 68 F c/ reported Hx of prior stroke and other comorbidities, who initially presented for evaluation of unexplained weight loss and other Sx. She was found to have a uterine cancer w/ liver met..but is reportedly not a candidate for chemotherapy. Then on 08/19, she suffered a cardiopulmonary arrest..and is refractorily encephalopathic, for which neurology is consulted. TTP was deferred.. She is also noted by staff to have ? abnormal movements concerning for seizure.. Head CT on 08/21 is unrevealing. EEG is without epileptiform activity. P: Defer AED Tx for now Hold propofol and other sedatives as able Continued medical management and supportive care per primary Will follow clinically Consultation Date/Type/Reason Admit Date/Time Jul 29, 2018 at 06:16 Type of Consult Neurology Reason for Consultation ams, ?seizure Requesting Provider: SANDI MURDOCK NP Date/Time of Note DATE: 08/25/18 TIME: 09:23 24 HR Interval Summary Free Text/Dictation Continues icu care Subjective hx not possible: pt non-verbal, pt critical Exam/Review of Systems Exam Vitals Vital Signs Date Temp Pulse Resp B/P (MAP) Pulse Ox O2 O2 Flow FiO2 Time Delivery Rate 08/25/18 85 08:00 08/25/18 25 140/72 100 Mechanical 06:30 (94) Ventilator 08/25/18 30 05:30 08/25/18 98.0 04:00 Intake and Output 08/24/18 08/24/18 08/25/18 1515:00 23:00 07:00 IntakeIntake Total 360.7 ml 394.112 ml 427.248 ml OutputOutput Total 155 ml 91 ml 90 ml BalanceBalance 205.7 ml 303.112 ml 337.248 ml Results Result Diagram: 08/25/18 0410 08/25/18 0410 Results 24hrs Laboratory Tests Test 08/24/18 13:42 08/24/18 17:59 08/24/18 20:01 08/25/18 01:26 Bedside Glucose 132 114 131 148 Test 08/25/18 04:10 08/25/18 05:02 08/25/18 09:00 White Blood Count 16.0 H Red Blood Count 3.53 L Hemoglobin 9.9 L Hematocrit 30.1 L Mean Corpuscular 85.3 Volume Mean Corpuscular 28.0 L Hemoglobin Mean Corpuscular 32.9 Hemoglobin Concent Red Cell 17.2 H Distribution Width Platelet Count 557 H Mean Platelet Volume 10.2 Immature 4.000 H Granulocytes % Neutrophils % 59.4 Lymphocytes % 15.1 Monocytes % 17.3 H Eosinophils % 3.5 Basophils % 0.7 Nucleated Red Blood 2.8 H Cells % Immature 0.640 H Granulocytes # Neutrophils # 9.5 H Lymphocytes # 2.4 Monocytes # 2.8 H Eosinophils # 0.6 H Basophils # 0.1 Nucleated Red Blood 0.5 H Cells # Sodium Level 141 Potassium Level 3.2 L Chloride Level 114 H Carbon Dioxide Level 17 L Anion Gap 10 Blood Urea Nitrogen 39 H Creatinine 1.83 H Est Glomerular 27 L Filtrat Rate mL/min Glucose Level 154 Calcium Level 8.5 Phosphorus Level 3.7 Magnesium Level 2.4 Bedside Glucose 137 149 Medications Medication Current Medications IV Flush (NS 3 ml) 3 ml PER PROTOCOL IV Last administered on 08/05/18 09:07; Admin Dose 3 ML; Start 07/29/18 at 06:30 Ondansetron HCl (Zofran Inj) 4 mg Q6H PRN IV NAUSEA/VOMITING Last administered on 08/18/18 18:34; Admin Dose 4 MG; Start 07/29/18 at 06:30 Acetaminophen/ Hydrocodone Bitart ([place] (5/325)) 1 tab Q6H PRN PO .MOD PAIN 4- 6 Last administered on 08/19/18 03:42; Admin Dose 1 TAB; Start 07/29/18 at 06:30 Diagnostic Test (Pha) (Accu-Chek) 1 ea 02 XX Last administered on 08/18/18 02:00; Admin Dose 1 EA; Start 07/30/18 at 02:00 Acetaminophen (Tylenol Tab) 650 mg Q6H PRN PO .PAIN 1-3 OR TEMP Last administer ed on 08/17/18 05:46; Admin Dose 650 MG; Start 07/29/18 at 07:00 Eye Lubricant (Akwa Oint) 1 applic Q1H PRN BOTH EYES DRY EYES; Start 07/29/18 at 08:00 Aspirin (Halfprin) 81 mg DAILY PO Last administered on 08/25/18 09:05; Admin Dose 81 MG; Start 07/29/18 at 09:00 Atorvastatin Calcium (Lipitor) 20 mg QHS PO Last administered on 08/24/18at 20:25; Admin Dose 20 MG; Start 07/29/18 at 21:00 Clopidogrel Bisulfate (plaVIX) 75 mg DAILY PO Last administered on 08/25/18 09:05; Admin Dose 75 MG; Start 07/29/18 at 09:00 Cyanocobalamin (Vitamin B12) 50 mcg DAILY PO Last administered on 08/25/18 09:05; Admin Dose 50 MCG; Start 07/29/18 at 09:00 Levothyroxine Sodium (Synthroid) 50 mcg BEFORE BREAKFAST PO Last administered on 08/25/18 06:02; Admin Dose 50 MCG; Start 07/29/18 at 07:00 Polyethyl Glycol/ Propylene Glycol (Systane 0.3-0.4% Eye Drops) 1 drop Q4H PRN BOTH EYES DRY EYES; Start 07/29/18 at 08:00 Albuterol (Ventolin Hfa) 2 puff Q4H RESP THERAPY PRN INH WHEEZING; Start 07/29/18 at 09:00 Miscellaneous Information 1 ea NOTE XX ; Start 07/29/18 at 07:00 Glucose (Glutose) 15 gm Q15M PRN PO DECREASED GLUCOSE; Start 07/29/18 at 07:00 Glucose (Glutose) 22.5 gm Q15M PRN PO DECREASED GLUCOSE; Start 07/29/18 at 07:00 Dextrose (D50w Syringe) 25 ml Q15M PRN IV DECREASED GLUCOSE Last administered on 08/24/18at 07:58; Admin Dose 25 ML; Start 07/29/18 at 07:00 Dextrose (D50w Syringe) 50 ml Q15M PRN IV DECREASED GLUCOSE; Start 07/29/18 at 07:00 Glucagon (Glucagen) 1 mg Q15M PRN IM DECREASED GLUCOSE; Start 07/29/18 at 07:00 Glucose (Glutose) 15 gm Q15M PRN BUCCAL DECREASED GLUCOSE; Start 07/29/18 at 07:00 Alprazolam (Xanax) 0.25 mg Q8H PRN PO ANXIETY Last administered on 08/19/18at 00:10; Admin Dose 0.25 MG; Start 07/29/18 at 12:30 Polyethylene Glycol (Miralax) 17 gm DAILY PO Last administered on 08/25/18 09:16; Admin Dose 17 GM; Start 07/29/18 at 12:30 Docusate Sodium (Colace) 100 mg BID PO Last administered on 08/24/18 20:25; Admin Dose 100 MG; Start 07/31/18 at 21:00 Magnesium Hydroxide (Milk Of Mag) 30 ml Q12H PRN PO STOMACH UPSET/CRAMPING Last administered on 07/31/18 21:28; Admin Dose 30 ML; Start 07/31/18 at 20:00 Al Hydrox/Mg Hydrox/Simethicone (Mag-Al Plus) 30 ml Q6H PRN PO GASTROINTESTINAL UPSET Last administered on 08/16/18 23:45; Admin Dose 30 ML; Start 08/03/18 at 17:30 Insulin Glargine (Lantus) 8 units DAILY@2000 SC Last administered on 08/24/18 20:27; Admin Dose 8 UNITS; Start 08/09/18 at 20:00 Albuterol/ Ipratropium (Duoneb) 3 ml Q2H RESP THERAPY PRN HHN sob Last administered on 08/19/18 03:28; Admin Dose 3 ML; Start 08/14/18 at 12:00 Diltiazem HCl (Cardizem Iv) 5 mg Q4 PRN IV HR>70 for Cardiac CTA Last administered on 08/19/18 03:50; Admin Dose 5 MG; Start 08/17/18 at 11:30 Lorazepam (Ativan) 1 mg Q8H PRN IV ANXIETY Last administered on 08/20/18 12:39; Admin Dose 1 MG; Start 08/17/18 at 15:30 Epoetin Glenn-epbx (Retacrit (Non-Esrd)) 20,000 unit TuThSa@1700 SC Last administered on 08/23/18 18:07; Admin Dose 20,000 UNIT; Start 08/18/18 at 17:00 Simethicone (Mylicon) 160 mg Q6H PRN PO DISTENSION/GAS/BLOATING Last administered on 08/18/18 08:49; Admin Dose 160 MG; Start 08/17/18 at 20:00 Propofol 100 ml @ 1.568 mls/ hr Q12H IV Last administered on 08/24/18 18:25; Admin Dose 6.272 MLS/HR; Start 08/19/18 at 09:30 Norepinephrine 250 ml @ 1.875 mls/ hr TITRATE IV Last administered on 08/20/18 08:57; Admin Dose 9.375 MLS/HR; Start 08/19/18 at 10:30 Insulin Aspart (Novolog Insulin Pen) NOVOLOG *MODERATE* ALGORI... Q4 SC Last administered on 08/25/18 09:08; Admin Dose 2 UNIT; Start 08/20/18 at 01:00 Lansoprazole (Prevacid) 30 mg DAILY@06 NGT Last administered on 08/25/18 05:32; Admin Dose 30 MG; Start 08/21/18 at 06:00 Piperacillin Sod/ Tazobactam Sod 100 ml @ 200 mls/hr Q8 IVPB Last administered on 08/25/18 05:32; Admin Dose 200 MLS/HR; Start 08/22/18 at 22:00 Dextrose/Sodium Chloride 1,000 ml @ 50 mls/hr Q20H IV Last administered on 08/24/18 18:23; Admin Dose 50 MLS/HR; Start 08/23/18 at 01:30 Enoxaparin Sodium (Lovenox) 50 mg DAILY SC Last administered on 08/25/18 09:06; Admin Dose 50 MG; Start 08/24/18 at 09:00 Metoprolol Tartrate (Lopressor) 25 mg BID PO Last administered on 08/25/18 09:05; Admin Dose 25 MG; Start 08/23/18 at 21:00 Potassium Chloride 100 ml @ 50 mls/hr Q2H IVPB Last administered on 08/25/18 09:04; Admin Dose 50 MLS/HR; Start 08/25/18 at 07:00; Stop 08/25/18 at 10:59 GABBY CARDOZA Aug 25, 2018 09:23
[2018-08-25] MEDS: DEXTROSE 5%-0.45% NACL 1,000 ML IV SCH (13:17)
--- NOTE | 2018-08-25 13:39 | CONS ---
Assessment/Plan Assessment/Plan Hospital Course (Demo Recall) No acute events patient remains intubated afebrile in no distress. WBC 16 platelets 557 neutrophils 59.4 BUN 39 creatinine 1.83 Antimicrobials: Zosyn ALL: Levaquin Indwelling: Endotracheal tube NG tube [place] catheter, femoral triple-lumen catheter, Pleurx Physical examination: Well-developed fragile elderly woman who is in no distress. Head atraumatic normocephalic sclera nonicteric vehicle mucosa dry neck is supple chest rise symmetrical breath sounds diminished bases heart: S1- S2 abdomen soft bowel sounds hypoactive extremities with trace edema Assessment: 1. Status post asystolic cardiopulmonary arrest 2. Respiratory failure 3. Persistent right pleural effusion likely malignant, possibly parapneumonic 4. 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 Acute kidney insufficiency 6. Diabetes 7. Pneumonia 8. Right mastoiditis Plan: Remains unchanged, continue antibiotics, follow pulmonary recommendations Consultation Date/Type/Reason Admit Date/Time Jul 29, 2018 at 06:16 Initial Consult Date 08/15/18 Type of Consult id Requesting Provider: SANDI MURDOCK NP Date/Time of Note DATE: 08/25/18 TIME: 13:38 Exam/Review of Systems Exam Vitals Vital Signs Date Temp Pulse Resp B/P (MAP) Pulse Ox O2 O2 Flow FiO2 Time Delivery Rate 08/25/18 64 12:00 08/25/18 98.2 17 99/49 (66) 100 Mechanical 12:00 Ventilator 08/25/18 30 11:20 Intake and Output 08/24/18 08/24/18 08/25/18 1515:00 23:00 07:00 IntakeIntake Total 360.7 ml 394.112 ml 457.248 ml OutputOutput Total 155 ml 91 ml 110 ml BalanceBalance 205.7 ml 303.112 ml 347.248 ml Results Result Diagram: 08/25/18 0410 08/25/18 0410 Results 24hrs Laboratory Tests Test 08/24/18 13:42 08/24/18 17:59 08/24/18 20:01 08/25/18 01:26 Bedside Glucose 132 114 131 148 Test 08/25/18 04:10 08/25/18 05:02 08/25/18 09:00 08/25/18 13:24 White Blood Count 16.0 H Red Blood Count 3.53 L Hemoglobin 9.9 L Hematocrit 30.1 L Mean Corpuscular 85.3 Volume Mean Corpuscular 28.0 L Hemoglobin Mean Corpuscular 32.9 Hemoglobin Concent Red Cell 17.2 H Distribution Width Platelet Count 557 H Mean Platelet Volume 10.2 Immature 4.000 H Granulocytes % Neutrophils % 59.4 Lymphocytes % 15.1 Monocytes % 17.3 H Eosinophils % 3.5 Basophils % 0.7 Nucleated Red Blood 2.8 H Cells % Immature 0.640 H Granulocytes # Neutrophils # 9.5 H Lymphocytes # 2.4 Monocytes # 2.8 H Eosinophils # 0.6 H Basophils # 0.1 Nucleated Red Blood 0.5 H Cells # Sodium Level 141 Potassium Level 3.2 L Chloride Level 114 H Carbon Dioxide Level 17 L Anion Gap 10 Blood Urea Nitrogen 39 H Creatinine 1.83 H Est Glomerular 27 L Filtrat Rate mL/min Glucose Level 154 Calcium Level 8.5 Phosphorus Level 3.7 Magnesium Level 2.4 Bedside Glucose 137 149 128 Medications Medication Current Medications IV Flush (NS 3 ml) 3 ml PER PROTOCOL IV Last administered on 08/05/18 09:07; Admin Dose 3 ML; Start 07/29/18 at 06:30 Ondansetron HCl (Zofran Inj) 4 mg Q6H PRN IV NAUSEA/VOMITING Last administered on 08/18/18 18:34; Admin Dose 4 MG; Start 07/29/18 at 06:30 Acetaminophen/ Hydrocodone Bitart ([place] (5/325)) 1 tab Q6H PRN PO .MOD PAIN 4- 6 Last administered on 08/19/18 03:42; Admin Dose 1 TAB; Start 07/29/18 at 06:30 Diagnostic Test (Pha) (Accu-Chek) 1 ea 02 XX Last administered on 08/18/18 02:00; Admin Dose 1 EA; Start 07/30/18 at 02:00 Acetaminophen (Tylenol Tab) 650 mg Q6H PRN PO .PAIN 1-3 OR TEMP Last administered on 08/17/18 05:46; Admin Dose 650 MG; Start 07/29/18 at 07:00 Eye Lubricant (Akwa Oint) 1 applic Q1H PRN BOTH EYES DRY EYES; Start 07/29/18 at 08:00 Aspirin (Halfprin) 81 mg DAILY PO Last administered on 6/29/19at 09:05; Admin Dose 81 MG; Start 07/29/18 at 09:00 Atorvastatin Calcium (Lipitor) 20 mg QHS PO Last administered on 08/24/18at 20: 25; Admin Dose 20 MG; Start 07/29/18 at 21:00 Clopidogrel Bisulfate (plaVIX) 75 mg DAILY PO Last administered on 08/25/18 09:05; Admin Dose 75 MG; Start 07/29/18 at 09:00 Cyanocobalamin (Vitamin B12) 50 mcg DAILY PO Last administered on 08/25/18 09:05; Admin Dose 50 MCG; Start 07/29/18 at 09:00 Levothyroxine Sodium (Synthroid) 50 mcg BEFORE BREAKFAST PO Last administered on 08/25/18 06:02; Admin Dose 50 MCG; Start 07/29/18 at 07:00 Polyethyl Glycol/ Propylene Glycol (Systane 0.3-0.4% Eye Drops) 1 drop Q4H PRN BOTH EYES DRY EYES; Start 07/29/18 at 08:00 Albuterol (Ventolin Hfa) 2 puff Q4H RESP THERAPY PRN INH WHEEZING; Start 07/29/18 at 09:00 Miscellaneous Information 1 ea NOTE XX ; Start 07/29/18 at 07:00 Glucose (Glutose) 15 gm Q15M PRN PO DECREASED GLUCOSE; Start 07/29/18 at 07:00 Glucose (Glutose) 22.5 gm Q15M PRN PO DECREASED GLUCOSE; Start 07/29/18 at 07:00 Dextrose (D50w Syringe) 25 ml Q15M PRN IV DECREASED GLUCOSE Last administered on 08/24/18at 07:58; Admin Dose 25 ML; Start 07/29/18 at 07:00 Dextrose (D50w Syringe) 50 ml Q15M PRN IV DECREASED GLUCOSE; Start 07/29/18 at 07:00 Glucagon (Glucagen) 1 mg Q15M PRN IM DECREASED GLUCOSE; Start 07/29/18 at 07:00 Glucose (Glutose) 15 gm Q15M PRN BUCCAL DECREASED GLUCOSE; Start 07/29/18 at 07:00 Alprazolam (Xanax) 0.25 mg Q8H PRN PO ANXIETY Last administered on 08/19/18at 00:10; Admin Dose 0.25 MG; Start 07/29/18 at 12:30 Polyethylene Glycol (Miralax) 17 gm DAILY PO Last administered on 08/25/18 09:16; Admin Dose 17 GM; Start 07/29/18 at 12:30 Docusate Sodium (Colace) 100 mg BID PO Last administered on 08/24/18 20:25; Admin Dose 100 MG; Start 07/31/18 at 21:00 Magnesium Hydroxide (Milk Of Mag) 30 ml Q12H PRN PO STOMACH UPSET/CRAMPING Last administered on 07/31/18 21:28; Admin Dose 30 ML; Start 07/31/18 at 20:00 Al Hydrox/Mg Hydrox/Simethicone (Mag-Al Plus) 30 ml Q6H PRN PO GASTROINTESTINAL UPSET Last administered on 08/16/18 23:45; Admin Dose 30 ML; Start 08/03/18 at 17:30 Insulin Glargine (Lantus) 8 units DAILY@2000 SC Last administered on 08/24/18 20:27; Admin Dose 8 UNITS; Start 08/09/18 at 20:00 Albuterol/ Ipratropium (Duoneb) 3 ml Q2H RESP THERAPY PRN HHN sob Last administered on 08/19/18 03:28; Admin Dose 3 ML; Start 08/14/18 at 12:00 Diltiazem HCl (Cardizem Iv) 5 mg Q4 PRN IV HR>70 for Cardiac CTA Last administered on 08/19/18 03:50; Admin Dose 5 MG; Start 08/17/18 at 11:30 Lorazepam (Ativan) 1 mg Q8H PRN IV ANXIETY Last administered on 08/20/18 12:39; Admin Dose 1 MG; Start 08/17/18 at 15:30 Epoetin Glenn-epbx (Retacrit (Non-Esrd)) 20,000 unit TuThSa@1700 SC Last administered on 08/23/18 18:07; Admin Dose 20,000 UNIT; Start 08/18/18 at 17:00 Simethicone (Mylicon) 160 mg Q6H PRN PO DISTENSION/GAS/BLOATING Last administered on 08/18/18 08:49; Admin Dose 160 MG; Start 08/17/18 at 20:00 Propofol 100 ml @ 1.568 mls/ hr Q12H IV Last administered on 08/24/18 18:25; Admin Dose 6.272 MLS/HR; Start 08/19/18 at 09:30 Norepinephrine 250 ml @ 1.875 mls/ hr TITRATE IV Last administered on 08/20/18 08:57; Admin Dose 9.375 MLS/HR; Start 08/19/18 at 10:30 Insulin Aspart (Novolog Insulin Pen) NOVOLOG *MODERATE* ALGORI... Q4 SC Last administered on 08/25/18 09:08; Admin Dose 2 UNIT; Start 08/20/18 at 01:00 Lansoprazole (Prevacid) 30 mg DAILY@06 NGT Last administered on 08/25/18 0 5:32; Admin Dose 30 MG; Start 08/21/18 at 06:00 Piperacillin Sod/ Tazobactam Sod 100 ml @ 200 mls/hr Q8 IVPB Last administered on 08/25/18 13:21; Admin Dose 200 MLS/HR; Start 08/22/18 at 22:00 Dextrose/Sodium Chloride 1,000 ml @ 50 mls/hr Q20H IV Last administered on 08/24/18 18:23; Admin Dose 50 MLS/HR; Start 08/23/18 at 01:30 Enoxaparin Sodium (Lovenox) 50 mg DAILY SC Last administered on 08/25/18 09:06; Admin Dose 50 MG; Start 08/24/18 at 09:00 Metoprolol Tartrate (Lopressor) 25 mg BID PO Last administered on 08/25/18 09:05; Admin Dose 25 MG; Start 08/23/18 at 21:00 DENISSE THAO NP Aug 25, 2018 13:39
--- NOTE | 2018-08-25 13:45 | CONS ---
Consult Date/Type/Reason Admit Date/Time Jul 29, 2018 at 06:16 Initial Consult Date 08/10/18 Requesting Provider: SANDI MURDOCK NP Date/Time of Note DATE: 08/25/18 TIME: 13:41 Subjective NO acute evens - not weaning now -BP stable - con't to adjust Rx as needed - no active CP noted. ROS: No fever, no chills, no nausea, no vomiting, no diarrhea/constipation - per nurse Objective Vitals Vital Signs Date Temp Pulse Resp B/P (MAP) Pulse Ox O2 O2 Flow FiO2 Time Delivery Rate 08/25/18 64 12:00 08/25/18 98.2 17 99/49 (66) 100 Mechanical 12:00 Ventilator 08/25/18 30 11:20 Intake and Output 08/24/18 08/24/18 08/25/18 1515:00 23:00 07:00 IntakeIntake Total 360.7 ml 394.112 ml 457.248 ml OutputOutput Total 155 ml 91 ml 110 ml BalanceBalance 205.7 ml 303.112 ml 347.248 ml Exam General: WN/WD/NAD, AOx 0 HEENT: Unicetric/atraumatic/EOMI (does not follow commands) - intubated NECK: JVD elevated, no thyromegaly Lymph: no lymphadenopathy HEART: regular with no S3, II/ systolic murmur at apex - PMI L LUNGS: Coarse sounds ABD: soft, NT, ND, +BS : Intact Neuro: non focal SKIN: chronic changes EXT: trace edema Results/Medications Result Diagram: 08/25/18 0410 08/25/18 0410 Results 24 hrs Laboratory Tests Test 08/24/18 13:42 08/24/18 17:59 08/24/18 20:01 08/25/18 01:26 Bedside Glucose 132 114 131 148 Test 08/25/18 04:10 08/25/18 05:02 08/25/18 09:00 08/25/18 13:24 White Blood Count 16.0 H Red Blood Count 3.53 L Hemoglobin 9.9 L Hematocrit 30.1 L Mean Corpuscular 85.3 Volume Mean Corpuscular 28.0 L Hemoglobin Mean Corpuscular 32.9 Hemoglobin Concent Red Cell 17.2 H Distribution Width Platelet Count 557 H Mean Platelet Volume 10.2 Immature 4.000 H Granulocytes % Neutrophils % 59.4 Lymphocytes % 15.1 Monocytes % 17.3 H Eosinophils % 3.5 Basophils % 0.7 Nucleated Red Blood 2.8 H Cells % Immature 0.640 H Granulocytes # Neutrophils # 9.5 H Lymphocytes # 2.4 Monocytes # 2.8 H Eosinophils # 0.6 H Basophils # 0.1 Nucleated Red Blood 0.5 H Cells # Sodium Level 141 Potassium Level 3.2 L Chloride Level 114 H Carbon Dioxide Level 17 L Anion Gap 10 Blood Urea Nitrogen 39 H Creatinine 1.83 H Est Glomerular 27 L Filtrat Rate mL/min Glucose Level 154 Calcium Level 8.5 Phosphorus Level 3.7 Magnesium Level 2.4 Bedside Glucose 137 149 128 Home Meds Active Scripts Magnesium Oxide* (Mag-Oxide*) 400 Mg Tablet, 400 MG PO BID for 3 Days, #10 TAB Prov:FRENANDO YANCEY MD 07/08/18 Lactobacillus Rhamnosus GG (Culturelle) 1 Each Capsule, 1 CAP PO BID for 14 Days, #30 CAP Prov:FERNANDO YANCEY MD 07/08/18 Acetaminophen* (Tylenol*) 325 Mg Tablet, 650 MG PO Q6H PRN for .PAIN 1-3 OR TEMP for 10 Days, #10 TAB Prov:FERNANDO YANCEY MD 07/08/18 Lisinopril* (Lisinopril*) 5 Mg Tablet, 2.5 MG PO DAILY for 15 Days, #15 TAB Prov:FERNANDO YANCEY MD 07/08/18 Sulfamethoxazole/Trimethoprim (Sulfamethoxazole-Tmp Ds Tablet) 1 Each Tablet, 1 TAB PO BID for 5 Days, #10 TAB Prov:FERNANDO YANCEY MD 07/08/18 Reported Medications Sodium Bicarbonate* (Sodium Bicarbonate*) 650 Mg Tablet, 650 MG PO TID, TAB 07/05/18 Propylene Glycol-Peg 400 (Systane 0.3-0.4% Eye Drops) 0.3-0.4 % - 30 Ml Drops, 1 DROP BOTH EYES Q4H PRN for DRY EYES, #1 BOTTLE 07/05/18 Pantoprazole* (Protonix*) 40 Mg Tablet.dr, 40 MG PO QAM, TAB 07/05/18 Ondansetron Hcl* (Zofran*) 8 Mg Tablet, 8 MG PO Q6H PRN for NAUSEA AND OR VOMITING, TAB 07/05/18 Metoprolol Succinate* (Toprol XL*) 25 Mg Tab.sr.24h, 25 MG PO BID, #30 TAB 07/05/18 Metformin* (Glucophage*) 500 Mg Tab, 500 MG PO WITH BREAKFAST, #30 TAB 07/05/18 Levothyroxine Sodium* (Synthroid*) 50 Mcg Tablet, 50 MCG PO BEFORE BREAKFAST, #30 TAB 07/05/18 Hydrocodone/Acetaminophen ([place] 5-325 Tablet) 1 Each Tablet, 1 EACH PO Q6 PRN for PAIN, TAB 07/05/18 [place]-3 Fatty Acids/Fish Oil (Fish Oil 1,000 mg Capsule) 1 Each Capsule, 1 EACH PO DAILY, CAP 07/05/18 Cyanocobalamin* (Vitamin B-12*) 50 Mcg Tablet, 50 MCG PO DAILY, TAB 07/05/18 Clopidogrel Bisulfate (Clopidogrel) 75 Mg Tablet, 75 MG PO DAILY, #30 TAB 07/05/18 Atorvastatin Calcium* (Atorvastatin Calcium*) 20 Mg Tablet, 20 MG PO QHS, #30 TAB 07/05/18 Aspirin* (Aspirin* EC) 81 Mg Tablet.dr, 81 MG PO DAILY, TAB 07/05/18 Artificial Tears* (Akwa Oint*) 3.5 Gm Oint, 1 APPLIC BOTH EYES Q1H PRN for DRY EYES, #1 TUB 07/05/18 Albuterol Sulfate (Proair Respiclick) 90 Mcg Aer.pow.ba, 2 PUFFS INHALATION Q4 PRN for WHEEZING, BOTTLE 07/05/18 Medications Current Medications IV Flush (NS 3 ml) 3 ml PER PROTOCOL IV Last administered on 08/05/18at 09:07; Admin Dose 3 ML; Start 07/29/18 at 06:30 Ondansetron HCl (Zofran Inj) 4 mg Q6H PRN IV NAUSEA/VOMITING Last administered on 08/18/18at 18:34; Admin Dose 4 MG; Start 07/29/18 at 06:30 Acetaminophen/ Hydrocodone Bitart ([place] (5/325)) 1 tab Q6H PRN PO .MOD PAIN 4- 6 Last administered on 08/19/18at 03:42; Admin Dose 1 TAB; Start 07/29/18 at 06:30 Diagnostic Test (Pha) (Accu-Chek) 1 ea 02 XX Last administered on 08/18/18at 02:00; Admin Dose 1 EA; Start 07/30/18 at 02:00 Acetaminophen (Tylenol Tab) 650 mg Q6H PRN PO .PAIN 1-3 OR TEMP Last administered on 08/17/18at 05:46; Admin Dose 650 MG; Start 07/29/18 at 07:00 Eye Lubricant (Akwa Oint) 1 applic Q1H PRN BOTH EYES DRY EYES; Start 07/29/18 at 08:00 Aspirin (Halfprin) 81 mg DAILY PO Last administered on 08/25/18 09:05; Admin Dose 81 MG; Start 07/29/18 at 09:00 Atorvastatin Calcium (Lipitor) 20 mg QHS PO Last administered on 08/24/18 20:25; Admin Dose 20 MG; Start 07/29/18 at 21:00 Clopidogrel Bisulfate (plaVIX) 75 mg DAILY PO Last administered on 08/25/18 09:05; Admin Dose 75 MG; Start 07/29/18 at 09:00 Cyanocobalamin (Vitamin B12) 50 mcg DAILY PO Last administered on 08/25/18 09:05; Admin Dose 50 MCG; Start 07/29/18 at 09:00 Levothyroxine Sodium (Synthroid) 50 mcg BEFORE BREAKFAST PO Last administered on 08/25/18 06:02; Admin Dose 50 MCG; Start 07/29/18 at 07:00 Polyethyl Glycol/ Propylene Glycol (Systane 0.3-0.4% Eye Drops) 1 drop Q4H PRN BOTH EYES DRY EYES; Start 07/29/18 at 08:00 Albuterol (Ventolin Hfa) 2 puff Q4H RESP THERAPY PRN INH WHEEZING; Start 07/29/18 at 09:00 Miscellaneous Information 1 ea NOTE XX ; Start 07/29/18 at 07:00 Glucose (Glutose) 15 gm Q15M PRN PO DECREASED GLUCOSE; Start 07/29/18 at 07:00 Glucose (Glutose) 22.5 gm Q15M PRN PO DECREASED GLUCOSE; Start 07/29/18 at 07:00 Dextrose (D50w Syringe) 25 ml Q15M PRN IV DECREASED GLUCOSE Last administered on 08/24/18at 07:58; Admin Dose 25 ML; Start 07/29/18 at 07:00 Dextrose (D50w Syringe) 50 ml Q15M PRN IV DECREASED GLUCOSE; Start 07/29/18 at 07:00 Glucagon (Glucagen) 1 mg Q15M PRN IM DECREASED GLUCOSE; Start 07/29/18 at 07:00 Glucose (Glutose) 15 gm Q15M PRN BUCCAL DECREASED GLUCOSE; Start 07/29/18 at 07: 00 Alprazolam (Xanax) 0.25 mg Q8H PRN PO ANXIETY Last administered on 08/19/18 00:10; Admin Dose 0.25 MG; Start 07/29/18 at 12:30 Polyethylene Glycol (Miralax) 17 gm DAILY PO Last administered on 08/25/18 09:16; Admin Dose 17 GM; Start 07/29/18 at 12:30 Docusate Sodium (Colace) 100 mg BID PO Last administered on 08/24/18 20:25; Admin Dose 100 MG; Start 07/31/18 at 21:00 Magnesium Hydroxide (Milk Of Mag) 30 ml Q12H PRN PO STOMACH UPSET/CRAMPING Last administered on 07/31/18 21:28; Admin Dose 30 ML; Start 07/31/18 at 20:00 Al Hydrox/Mg Hydrox/Simethicone (Mag-Al Plus) 30 ml Q6H PRN PO GASTROINTESTINAL UPSET Last administered on 08/16/18 23:45; Admin Dose 30 ML; Start 08/03/18 at 17:30 Insulin Glargine (Lantus) 8 units DAILY@2000 SC Last administered on 08/24/18 20:27; Admin Dose 8 UNITS; Start 08/09/18 at 20:00 Albuterol/ Ipratropium (Duoneb) 3 ml Q2H RESP THERAPY PRN HHN sob Last a dministered on 08/19/18 03:28; Admin Dose 3 ML; Start 08/14/18 at 12:00 Diltiazem HCl (Cardizem Iv) 5 mg Q4 PRN IV HR>70 for Cardiac CTA Last administered on 08/19/18 03:50; Admin Dose 5 MG; Start 08/17/18 at 11:30 Lorazepam (Ativan) 1 mg Q8H PRN IV ANXIETY Last administered on 08/20/18 12:39; Admin Dose 1 MG; Start 08/17/18 at 15:30 Epoetin Glenn-epbx (Retacrit (Non-Esrd)) 20,000 unit TuThSa@1700 SC Last administered on 08/23/18 18:07; Admin Dose 20,000 UNIT; Start 08/18/18 at 17:00 Simethicone (Mylicon) 160 mg Q6H PRN PO DISTENSION/GAS/BLOATING Last administered on 08/18/18 08:49; Admin Dose 160 MG; Start 08/17/18 at 20:00 Propofol 100 ml @ 1.568 mls/ hr Q12H IV Last administered on 08/24/18 18:25; Admin Dose 6.272 MLS/HR; Start 08/19/18 at 09:30 Norepinephrine 250 ml @ 1.875 mls/ hr TITRATE IV Last administered on 08/20/18 08:57; Admin Dose 9.375 MLS/HR; Start 08/19/18 at 10:30 Insulin Aspart (Novolog Insulin Pen) NOVOLOG *MODERATE* ALGORI... Q4 SC Last administered on 08/25/18 09:08; Admin Dose 2 UNIT; Start 08/20/18 at 01:00 Lansoprazole (Prevacid) 30 mg DAILY@06 NGT Last administered on 08/25/18 05:32; Admin Dose 30 MG; Start 08/21/18 at 06:00 Piperacillin Sod/ Tazobactam Sod 100 ml @ 200 mls/hr Q8 IVPB Last administered on 08/25/18 13:21; Admin Dose 200 MLS/HR; Start 08/22/18 at 22:00 Dextrose/Sodium Chloride 1,000 ml @ 50 mls/hr Q20H IV Last administered on 08/24/18 18:23; Admin Dose 50 MLS/HR; Start 08/23/18 at 01:30 Enoxaparin Sodium (Lovenox) 50 mg DAILY SC Last administered on 08/25/18 09:06; Admin Dose 50 MG; Start 08/24/18 at 09:00 Metoprolol Tartrate (Lopressor) 25 mg BID PO Last administered on 08/25/18 09:05; Admin Dose 25 MG; Start 08/23/18 at 21:00 Assessment/Plan Hospital Course (Demo Recall) 1.Preop-neg trop multiple times. NL EF by echo. Lexiscan with possible distal anterior ischemia. NL EF. Now with positive troponin's s/p cardiopulmonary arrest - CTA planned but on hold for now pending family meeting on Monday 2.abnl ecg-ECG today with inferior ST elevation but with normal concavity and Q's isolated to lead 3 .. NL EF by echo this admit. multiple negative troponin and no chest pain prior to arrest - now troponin down - no active CP noted - no CP noted 3.Uterine cancer - stable urine output. 4.DM - keep euglycemic. 5.Hoth-resolved off of pressors - improved now. Stable. 6.HL 7.PLeural effusion-L sided large, malignant by cytology 8. Resp failure s/p intubation - not able to wean now. Pulmonary team follows. 9. NSTEMI-likely type 2 demand infarct - CTA to define anatomy, but given pt being unstable - will hold for now TUAN LANGLEY MD Aug 25, 2018 13:44
[2018-08-25] MEDS: EPOETIN ALFA-EPBX (NON-ESRD 10,000 UNIT/ML VIAL SC SCH (17:33)
[2018-08-25] MEDS: ATORVASTATIN 20 MG TAB PO SCH (20:44)
[2018-08-25] MEDS: INSULIN GLARGINE [LANTus] (100 UNITS/ML) SYG SC SCH (20:45)
[2018-08-26] VITALS (59 sets, daily range): BP systolic 85–147; BP diastolic 42–96; PULSE 56–100; RESP 11–35
[2018-08-26] MEDS: INSULIN ASPART [NOVOLOG] 3 ML PEN SC SCH ×6 (01:47→20:50)
[2018-08-26] MEDS: ACCU-CHEK XX SCH (01:47)
[2018-08-26] MEDS: PIPER-TAZO 3.375 GM IV (PMX) 100 ML IVPB SCH ×3 (06:06→21:45)
[2018-08-26] MEDS: LEVOTHYROXINE 50 MCG TAB PO SCH (06:06)
[2018-08-26] MEDS: LANSOPRAZOLE 30 MG CAP NGT SCH (06:06)
[2018-08-26] MEDS ORDERED: FUROSEMIDE 40 MG INJ IV ONE (07:30)
[2018-08-26] MEDS: CYANOCOBALAMIN 100 MCG TAB PO SCH (07:51)
[2018-08-26] MEDS: ASPIRIN (EC) 81 MG TAB PO SCH (07:51)
[2018-08-26] MEDS: METOPROLOL 25 MG TAB PO SCH ×2 (07:51→20:49)
[2018-08-26] MEDS: CLOPIDOGREL 75 MG TAB PO SCH (07:51)
[2018-08-26] MEDS: POLYETHYLENE GLYCOL 17 GM PACKET PO SCH (07:52)
[2018-08-26] MEDS: ENOXAPARIN 60 MG/0.6 ML SYG SC SCH (07:53)
[2018-08-26] MEDS: DOCUSATE SODIUM 100 MG CAP PO SCH ×2 (07:53→20:49)
--- NOTE | 2018-08-26 08:47 | PN ---
Date/Time of Note Date/Time of Note DATE: 08/26/18 TIME: 08:44 Assessment/Plan VTE Prophylaxis Risk score (from Ns)>0 risk: 8 SCD applied (from Nsg): Yes Pharmacological prophylaxis: LMWH Lines/Catheters IV Catheter Type (from Nrsg): Central Line Central line still needed: Yes Urinary Cath still in place: Yes Reason Cath still needed: terminal illness/intractable pain Assessment/Plan Hospital Course SUBJECTIVE: Remains intubated. . OBJECTIVE: Physical Exam General: Adequately build 68 year-old female lying in bed in no apparent distress. HEENT: Normocephalic, atraumatic. Eyes: Anicteric sclerae, conjunctivae clear. ENT: Nasal septum midline, oral mucosa is dry. Neck supple, no JVD noticed. Respiratory: Bilaterally diminished breath sounds. ETT to mechanical ventilator. Cardiovascular: S1, S2 heard. Regular rate and rhythm. Abdomen: Soft, nontender, and nondistended. Bowel sounds positive in all 4 quadr ants. Genitourinary: Deferred. Extremities: No cyanosis, no clubbing. Bilateral lower extremity 1+ edema. Neurologic: The patient is awake. Tracks movements. Moves all 4 extremities. Does not follow commands. Labs & Vitals per chart ASSESSMENT & PLAN This is a 68-year-old female with past medical history of diabetes mellitus, peripheral artery disease, stroke, dyslipidemia, and hypothyroidism. The patient presented to the emergency room with multiple complaints including bilateral lower extremity edema, unintentional weight loss, etc. The patient was admitted to inpatient setting for further treatment and evaluation. The patient underwent a CT scan of the abdomen and pelvis on 08/01/2018 that showed abnormal enlargement of the uterus with significant thickening of the endometrial stripe with pelvis MRI showing irregular 9 cm exophytic posterior uterine mass. 1. Metastatic carcinosarcoma of uterus. Being followed by oncology. A poor candidate for chemo as per oncology. 2. Malignant pleural effusion. Status post right-sided thoracentesis on 08/15/2018. S/P Pleurx catheter placement on 08/23/2018. 3. Positive Lexiscan myocardial perfusion study. Study positive for partially reversible perfusion defect in the distal anterior wall. Being followed by cardiology. Continue aspirin plus Plavix. 4. Status post cardiopulmonary arrest on 08/19/2018. Etiology could be secondary to underlying hypoxia versus others. Intubated and on pressors. Poor prognosis. 5. NSTEMI on 08/22/2018. Continue antiplatelet therapy. Cardiology following. 6. Peripheral artery disease. Being followed by vascular surgery. Optimize medical management. Continue aspirin plus Plavix. Continue statins. 7. Diabetes mellitus. Hemoglobin A1c 6.3. Continue sliding scale insulin along with basal. 8. Hypothyroidism. Continue Synthroid. 9. Acute kidney injury. Being followed by nephrology. Use nephrotoxic drugs with caution. 10. Normocytic anemia. Monitor H&H closely. Continue Epogen. 11. Acute respiratory failure. Hypoxic. Ventilator management as per pulmonology. 12. S/P Shock. S/P IV pressors for blood pressure support. 13. Fluids, electrolytes, and nutrition. NPO. NGT feeds. 14. DVT prophylaxis. Subcutaneous Lovenox. 15. Plan. Continue current management. Poor prognosis. As per the conversation with the patient's son Yaima on 08/22/2018, they want the patient to remain a full code. Palliative care following. Had a family conference on 08/26/2018 with Grayson Beckman, and the palliative care physician and as per the discussion with the [facility] care physician, the sons are going to get back to the providers regarding the decision on CODE STATUS by Monday. The patient was seen in collaboration with Dr. Hancock. Critical care time: 35 mins. Result Diagram: 08/26/18 0430 08/26/18 0430 Results 24hrs Laboratory Tests Test 08/25/18 09:00 08/25/18 13:24 08/25/18 17:36 08/25/18 20:42 Bedside Glucose 149 128 133 144 Test 08/26/18 01:45 08/26/18 04:30 08/26/18 05:46 08/26/18 08:00 Bedside Glucose 144 139 121 White Blood Count 20.4 #H Red Blood Count 3.19 L Hemoglobin 9.1 L Hematocrit 27.4 L Mean Corpuscular 85.9 Volume Mean Corpuscular 28.5 L Hemoglobin Mean Corpuscular 33.2 Hemoglobin Concent Red Cell 17.0 H Distribution Width Platelet Count 537 H Mean Platelet Volume 10.5 H Immature 3.900 H Granulocytes % Neutrophils % Segmented 64 Neutrophils % (Manual) Band Neutrophils % 1 (Manual) Lymphocytes % 15 (Manual) Monocytes % (Manual) 13 H Eosinophils % Eosinophils % 5 (Manual) Metamyelocytes % 1 H (manual) Myelocytes % 1 H (Manual) Nucleated Red Blood 8 H Cells % Immature 0.800 H Granulocytes # Neutrophils # Neutrophils # 13.1 H (Manual) Band Neutrophils # 0.2 Lymphocytes (Manual) 3.0 H Monocytes # (Manual) 2.6 H Eosinophils # Metamyelocytes # 0.2 H Myelocytes # 0.2 H Platelet Estimate INCREASED Polychromasia 3+ Hypochromasia 1+ Anisocytosis 1+ Target Cells 1+ Sodium Level 142 Potassium Level 3.7 Chloride Level 115 H Carbon Dioxide Level 17 L Anion Gap 10 Blood Urea Nitrogen 44 H Creatinine 1.98 H Est Glomerular 25 L Filtrat Rate mL/min Glucose Level 130 Calcium Level 8.8 Phosphorus Level 3.5 Magnesium Level 2.5 Exam/Review of Systems Exam Vitals Vital Signs Date Temp Pulse Resp B/P (MAP) Pulse Ox O2 O2 Flow FiO2 Time Delivery Rate 08/26/18 79 15 119/55 100 Mechanical 06:00 (76) Ventilator 08/26/18 30 04:50 08/26/18 98.7 04:00 Intake and Output 08/25/18 08/25/18 08/26/18 1515:00 23:00 07:00 IntakeIntake Total 663.384 ml 476.912 ml 442.9 ml OutputOutput Total 145 ml 215 ml 175 ml BalanceBalance 518.384 ml 261.912 ml 267.9 ml Results Results 24hrs Laboratory Tests Test 08/25/18 09:00 08/25/18 13:24 08/25/18 17:36 08/25/18 20:42 Bedside Glucose 149 128 133 144 Test 08/26/18 01:45 08/26/18 04:30 08/26/18 05:46 08/26/18 08:00 Bedside Glucose 144 139 121 White Blood Count 20.4 #H Red Blood Count 3.19 L Hemoglobin 9.1 L Hematocrit 27.4 L Mean Corpuscular 85.9 Volume Mean Corpuscular 28.5 L Hemoglobin Mean Corpuscular 33.2 Hemoglobin Concent Red Cell 17.0 H Distribution Width Platelet Count 537 H Mean Platelet Volume 10.5 H Immature 3.900 H Granulocytes % Neutrophils % Segmented 64 Neutrophils % (Manual) Band Neutrophils % 1 (Manual) Lymphocytes % 15 (Manual) Monocytes % (Manual) 13 H Eosinophils % Eosinophils % 5 (Manual) Metamyelocytes % 1 H (manual) Myelocytes % 1 H (Manual) Nucleated Red Blood 8 H Cells % Immature 0.800 H Granulocytes # Neutrophils # Neutrophils # 13.1 H (Manual) Band Neutrophils # 0.2 Lymphocytes (Manual) 3.0 H Monocytes # (Manual) 2.6 H Eosinophils # Metamyelocytes # 0.2 H Myelocytes # 0.2 H Platelet Estimate INCREASED Polychromasia 3+ Hypochromasia 1+ Anisocytosis 1+ Target Cells 1+ Sodium Level 142 Potassium Level 3.7 Chloride Level 115 H Carbon Dioxide Level 17 L Anion Gap 10 Blood Urea Nitrogen 44 H Creatinine 1.98 H Est Glomerular 25 L Filtrat Rate mL/min Glucose Level 130 Calcium Level 8.8 Phosphorus Level 3.5 Magnesium Level 2.5 Medications Medication Current Medications IV Flush (NS 3 ml) 3 ml PER PROTOCOL IV Last administered on 08/05/18 09:07; Admin Dose 3 ML; Start 07/29/18 at 06:30 Ondansetron HCl (Zofran Inj) 4 mg Q6H PRN IV NAUSEA/VOMITING Last administered on 08/18/18 18:34; Admin Dose 4 MG; Start 07/29/18 at 06:30 Acetaminophen/ Hydrocodone Bitart ([place] (5/325)) 1 tab Q6H PRN PO .MOD PAIN 4- 6 Last administered on 08/19/18 03:42; Admin Dose 1 TAB; Start 07/29/18 at 06:30 Diagnostic Test (Pha) (Accu-Chek) 1 ea 02 XX Last administered on 08/26/18 01:47; Admin Dose 1 EA; Start 07/30/18 at 02:00 Acetaminophen (Tylenol Tab) 650 mg Q6H PRN PO .PAIN 1-3 OR TEMP Last administered on 08/17/18 05:46; Admin Dose 650 MG; Start 07/29/18 at 07:00 Eye Lubricant (Akwa Oint) 1 applic Q1H PRN BOTH EYES DRY EYES; Start 07/29/18 at 08:00 Aspirin (Halfprin) 81 mg DAILY PO Last administered on 08/26/18 07:51; Admin Dose 81 MG; Start 07/29/18 at 09:00 Atorvastatin Calcium (Lipitor) 20 mg QHS PO Last administered on 08/25/18at 20:44; Admin Dose 20 MG; Start 07/29/18 at 21:00 Clopidogrel Bisulfate (plaVIX) 75 mg DAILY PO Last administered on 08/26/18 07:51; Admin Dose 75 MG; Start 07/29/18 at 09:00 Cyanocobalamin (Vitamin B12) 50 mcg DAILY PO Last administered on 08/26/18 07:51; Admin Dose 50 MCG; Start 07/29/18 at 09:00 Levothyroxine Sodium (Synthroid) 50 mcg BEFORE BREAKFAST PO Last administered on 08/26/18 06:06; Admin Dose 50 MCG; Start 07/29/18 at 07:00 Polyethyl Glycol/ Propylene Glycol (Systane 0.3-0.4% Eye Drops) 1 drop Q4H PRN BOTH EYES DRY EYES; Start 07/29/18 at 08:00 Albuterol (Ventolin Hfa) 2 puff Q4H RESP THERAPY PRN INH WHEEZING; Start 07/29/18 at 09:00 Miscellaneous Information 1 ea NOTE XX ; Start 07/29/18 at 07:00 Glucose (Glutose) 15 gm Q15M PRN PO DECREASED GLUCOSE; Start 07/29/18 at 07:00 Glucose (Glutose) 22.5 gm Q15M PRN PO DECREASED GLUCOSE; Start 07/29/18 at 07:00 Dextrose (D50w Syringe) 25 ml Q15M PRN IV DECREASED GLUCOSE Last administered on 08/24/18at 07:58; Admin Dose 25 ML; Start 07/29/18 at 07:00 Dextrose (D50w Syringe) 50 ml Q15M PRN IV DECREASED GLUCOSE; Start 07/29/18 at 07:00 Glucagon (Glucagen) 1 mg Q15M PRN IM DECREASED GLUCOSE; Start 07/29/18 at 07:00 Glucose (Glutose) 15 gm Q15M PRN BUCCAL DECREASED GLUCOSE; Start 07/29/18 at 07:00 Alprazolam (Xanax) 0.25 mg Q8H PRN PO ANXIETY Last administered on 08/19/18at 00:10; Admin Dose 0.25 MG; Start 07/29/18 at 12:30 Polyethylene Glycol (Miralax) 17 gm DAILY PO Last administered on 08/26/18at 07:52; Admin Dose 17 GM; Start 07/29/18 at 12:30 Docusate Sodium (Colace) 100 mg BID PO Last administered on 08/25/18 20:43; Admin Dose 100 MG; Start 07/31/18 at 21:00 Magnesium Hydroxide (Milk Of Mag) 30 ml Q12H PRN PO STOMACH UPSET/CRAMPING Last administered on 07/31/18 21:28; Admin Dose 30 ML; Start 07/31/18 at 20:00 Al Hydrox/Mg Hydrox/Simethicone (Mag-Al Plus) 30 ml Q6H PRN PO GASTROINTESTINAL UPSET Last administered on 08/16/18 23:45; Admin Dose 30 ML; Start 08/03/18 at 17:30 Insulin Glargine (Lantus) 8 units DAILY@2000 SC Last administered on 08/25/18 20:45; Admin Dose 8 UNITS; Start 08/09/18 at 20:00 Albuterol/ Ipratropium (Duoneb) 3 ml Q2H RESP THERAPY PRN HHN sob Last administ ered on 08/19/18 03:28; Admin Dose 3 ML; Start 08/14/18 at 12:00 Diltiazem HCl (Cardizem Iv) 5 mg Q4 PRN IV HR>70 for Cardiac CTA Last administered on 08/19/18 03:50; Admin Dose 5 MG; Start 08/17/18 at 11:30 Lorazepam (Ativan) 1 mg Q8H PRN IV ANXIETY Last administered on 08/20/18 12:39; Admin Dose 1 MG; Start 08/17/18 at 15:30 Epoetin Glenn-epbx (Retacrit (Non-Esrd)) 20,000 unit TuThSa@1700 SC Last administered on 08/25/18 17:33; Admin Dose 20,000 UNIT; Start 08/18/18 at 17:00 Simethicone (Mylicon) 160 mg Q6H PRN PO DISTENSION/GAS/BLOATING Last administered on 08/18/18 08:49; Admin Dose 160 MG; Start 08/17/18 at 20:00 Propofol 100 ml @ 1.568 mls/ hr Q12H IV Last administered on 08/25/18 18:08; Admin Dose 4.704 MLS/HR; Start 08/19/18 at 09:30 Norepinephrine 250 ml @ 1.875 mls/ hr TITRATE IV Last administered on 08/20/18 08:57; Admin Dose 9.375 MLS/HR; Start 08/19/18 at 10:30 Insulin Aspart (Novolog Insulin Pen) NOVOLOG *MODERATE* ALGORI... Q4 SC Last administered on 08/26/18 01:47; Admin Dose 2 UNIT; Start 08/20/18 at 01:00 Lansoprazole (Prevacid) 30 mg DAILY@06 NGT Last administered on 08/26/18 06:06; Admin Dose 30 MG; Start 08/21/18 at 06:00 Piperacillin Sod/ Tazobactam Sod 100 ml @ 200 mls/hr Q8 IVPB Last administered on 08/26/18 06:06; Admin Dose 200 MLS/HR; Start 08/22/18 at 22:00 Enoxaparin Sodium (Lovenox) 50 mg DAILY SC Last administered on 08/26/18 07:53; Admin Dose 50 MG; Start 08/24/18 at 09:00 Metoprolol Tartrate (Lopressor) 25 mg BID PO Last administered on 08/26/18 07:51; Admin Dose 25 MG; Start 08/23/18 at 21:00 SANDI MURDOCK NP Aug 26, 2018 08:47
[2018-08-26] MEDS ORDERED: FENTAnyl (DRIP) 1000 mcg/100mL 100 ML IV SCH (09:00)
[2018-08-26] MEDS: PROPOFOL 100 ML IV SCH ×2 (09:30→17:06)
--- NOTE | 2018-08-26 09:40 | PN ---
DATE: 08/26/2018 SUBJECTIVE: The patient remains critically ill, on full ventilatory support. No other acute events noted. No hemoptysis, hematemesis or hematochezia. OBJECTIVE: VITAL SIGNS: Blood pressure is 119/55, respirations 15, pulse 79, temperature 98.7. HEENT: Head is normocephalic. NECK: Supple. HEART: Regular rate. LUNGS: Show diminished breath sounds at the base. ABDOMEN: Soft, nontender to palpation without rebound or guarding. EXTREMITIES: Negative for clubbing, cyanosis. Positive edema. DERMATOLOGIC: No rashes. MUSCULOSKELETAL: No joint effusion. NEUROLOGIC: No change in exam. MEDICATIONS: The patient's medications have been reviewed. LABORATORY DATA: Reviewed. IMAGING STUDIES: Reviewed. ASSESSMENT AND PLAN: 1. Nonoliguric acute kidney injury on top of chronic kidney disease with previous baseline creatinin e around 1.2 to 1.4 mg/dL. Etiology of acute kidney injury was secondary to hemodynamics, tubular in jury. The patient's renal function continues to decline as the patient remains in injury phase of ac marga kidney injury. At this point, continue current treatment plan, supportive care, renally dose all medications, continue to monitor closely. 2. Volume overload. Etiology is multifactorial secondary to diastolic heart failure, sepsis, IV flu ids. We will give the patient a course of Lasix. Monitor closely. 3. Anemia. Continue to monitor hemoglobin and hematocrit levels. 4. Diastolic heart failure. We will continue diuretic therapy as stated above. 5. Hypokalemia. Continue to monitor and replete as needed. 6. Mineral bone disorder, monitor calcium and phosphorus levels. 7. Ventilator-dependent respiratory failure. Vent settings and ABG was reviewed. Continue to monit or. 8. Pleural effusion, status post PleurX catheter placement. Continue to monitor. 9. Coronary artery disease. Continue medical management. Follow up with Cardiology. 10. Diabetes. Continue current insulin regimen. 11. Hypothyroidism. Continue Synthroid. 12. Metastatic carcinosarcoma of the uterus. Continue to monitor. Follow up with Oncology. 13. Sepsis, status post shock. Continue current antibiotic regimen. 14. Status post cardiac arrest. 15. Encephalopathy, etiology is toxic metabolic. Dictated By: JACOB KAUFMAN/EMA Conf#: [id number] DID#: [id number] CC: TAN MAIER MD; MARY VILLATORO MD;*[facility]*
--- NOTE | 2018-08-26 10:14 | CONS ---
Consult Date/Type/Reason Admit Date/Time Jul 29, 2018 at 06:16 Initial Consult Date 08/15/18 Type of Consult Pulmonary Requesting Provider: SANDI MURDOCK [employer] ENGINEER Date/Time of Note DATE: 08/26/18 TIME: 10:13 Subjective Patient had Pleurx catheter attached to vacuum with 1 L output. Neurologically somewhat improved. Family at bedside they had a discussion with palliative care and are considering their options. Upon my discussion with them they state the patient would not want to tracheostomy feeding tube in the long-term detention. Objective Vital Signs Date Temp Pulse Resp B/P (MAP) Pulse Ox O2 O2 Flow FiO2 Time Delivery Rate 08/26/18 67 19 116/55 100 09:30 (75) 08/26/18 98.4 Mechanical 08:00 Ventilator 08/26/18 08:00 Intake and Output 08/25/18 08/25/18 08/26/18 1515:00 23:00 07:00 IntakeIntake Total 663.384 ml 476.912 ml 472.9 ml OutputOutput Total 145 ml 215 ml 205 ml BalanceBalance 518.384 ml 261.912 ml 267.9 ml Exam GENERAL: Elderly appearing lady orally intubated on mechanical ventilation VITAL SIGNS: per chart NECK: Supple. No JVD or lymphadenopathy. CARDIAC EXAM: S1, S2. No added sounds or murmurs. CHEST: Diminished air entry right side greater than left ABDOMEN: Soft, nontender. No guarding or rebound. EXTREMITIES: No cyanosis, clubbing or edema. NEUROLOGIC: Generalized weakness. No focal deficits Vent Setting Ventilator Support Mode: AC Fraction of Inspired Oxygen pe: 30 Positive End Expiratory Pressu: 5.0 Results/Medications Result Diagram: 08/26/18 0430 08/26/18 0430 Results 24 hrs Laboratory Tests Test 08/25/18 13:24 08/25/18 17:36 08/25/18 20:42 08/26/18 01:45 Bedside Glucose 128 133 144 144 Test 08/26/18 04:30 08/26/18 05:46 08/26/18 07:00 08/26/18 08:00 White Blood Count 20.4 #H Red Blood Count 3.19 L Hemoglobin 9.1 L Hematocrit 27.4 L Mean Corpuscular 85.9 Volume Mean Corpuscular 28.5 L Hemoglobin Mean Corpuscular 33.2 Hemoglobin Concen t Red Cell 17.0 H Distribution Width Platelet Count 537 H Mean Platelet 10.5 H Volume Immature 3.900 H Granulocytes % Neutrophils % Segmented 64 Neutrophils % (Manual) Band Neutrophils 1 % (Manual) Lymphocytes % 15 (Manual) Monocytes % 13 H (Manual) Eosinophils % Eosinophils % 5 (Manual) Metamyelocytes % 1 H (manual) Myelocytes % 1 H (Manual) Nucleated Red 8 H Blood Cells % Immature 0.800 H Granulocytes # Neutrophils # Neutrophils # 13.1 H (Manual) Band Neutrophils 0.2 # Lymphocytes 3.0 H (Manual) Monocytes # 2.6 H (Manual) Eosinophils # Metamyelocytes # 0.2 H Myelocytes # 0.2 H Platelet Estimate INCREASED Polychromasia 3+ Hypochromasia 1+ Anisocytosis 1+ Target Cells 1+ Sodium Level 142 Potassium Level 3.7 Chloride Level 115 H Carbon Dioxide 17 L Level Anion Gap 10 Blood Urea 44 H Nitrogen Creatinine 1.98 H Est Glomerular 25 L Filtrat Rate mL/min Glucose Level 130 Calcium Level 8.8 Phosphorus Level 3.5 Magnesium Level 2.5 Bedside Glucose 139 121 Blood Gas Blood arterial Specimen Source Arterial Blood 08/26/2018 8:26:3 Date Drawn 0 AM Arterial Blood pH 7.432 (Temp corrected) Arterial Blood 22.0 L pCO2 (Temp correct) Arterial Blood 107.1 H pO2 (Temp corrected) Arterial Blood 14.3 L HCO3 Arterial Blood -8.4 L Base Excess Arterial Blood 98.2 H Oxygen Saturation Quinten Test ACCEPTAB Arterial Blood Right Radial Gas Puncture Site Arterial 0.1 Blood Carboxyhemo globin Arterial Blood 0.2 Methemoglobin Blood Gas A-a O2 81.0 H Differential Oxyhemoglobin 97.9 Percent Blood Gas 37.0 Temperature Blood Gas 16.0 Respiration Rate Blood Gas Actual 29 Respiration Rate Blood Gas VENT - AC Modality FiO2 30.0 Blood Gas Tidal 450.0 Volume Blood Gas Low 5.0 PEEP Setting Blood Gas DT Notified Whom Blood Gas 08/26/2018 8:48:2 Notified Time 4 AM Medications Current Medications IV Flush (NS 3 ml) 3 ml PER PROTOCOL IV Last administered on 08/05/18at 09:07; Admin Dose 3 ML; Start 07/29/18 at 06:30 Ondansetron HCl (Zofran Inj) 4 mg Q6H PRN IV NAUSEA/VOMITING Last administered on 08/18/18 18:34; Admin Dose 4 MG; Start 07/29/18 at 06:30 Acetaminophen/ Hydrocodone Bitart ([place] (5/325)) 1 tab Q6H PRN PO .MOD PAIN 4- 6 Last administered on 08/19/18 03:42; Admin Dose 1 TAB; Start 07/29/18 at 06:30 Diagnostic Test (Pha) (Accu-Chek) 1 ea 02 XX Last administered on 08/26/18 01:47; Admin Dose 1 EA; Start 07/30/18 at 02:00 Acetaminophen (Tylenol Tab) 650 mg Q6H PRN PO .PAIN 1-3 OR TEMP Last administered on 08/17/18 05:46; Admin Dose 650 MG; Start 07/29/18 at 07:00 Eye Lubricant (Akwa Oint) 1 applic Q1H PRN BOTH EYES DRY EYES; Start 07/29/18 at 08:00 Aspirin (Halfprin) 81 mg DAILY PO Last administered on 08/26/18 07:51; Admin Dose 81 MG; Start 07/29/18 at 09:00 Atorvastatin Calcium (Lipitor) 20 mg QHS PO Last administered on 08/25/18 20: 44; Admin Dose 20 MG; Start 07/29/18 at 21:00 Clopidogrel Bisulfate (plaVIX) 75 mg DAILY PO Last administered on 08/26/18 07:51; Admin Dose 75 MG; Start 07/29/18 at 09:00 Cyanocobalamin (Vitamin B12) 50 mcg DAILY PO Last administered on 08/26/18 07:51; Admin Dose 50 MCG; Start 07/29/18 at 09:00 Levothyroxine Sodium (Synthroid) 50 mcg BEFORE BREAKFAST PO Last administered on 08/26/18 06:06; Admin Dose 50 MCG; Start 07/29/18 at 07:00 Polyethyl Glycol/ Propylene Glycol (Systane 0.3-0.4% Eye Drops) 1 drop Q4H PRN BOTH EYES DRY EYES; Start 07/29/18 at 08:00 Albuterol (Ventolin Hfa) 2 puff Q4H RESP THERAPY PRN INH WHEEZING; Start 07/29/18 at 09:00 Miscellaneous Information 1 ea NOTE XX ; Start 07/29/18 at 07:00 Glucose (Glutose) 15 gm Q15M PRN PO DECREASED GLUCOSE; Start 07/29/18 at 07:00 Glucose (Glutose) 22.5 gm Q15M PRN PO DECREASED GLUCOSE; Start 07/29/18 at 07:00 Dextrose (D50w Syringe) 25 ml Q15M PRN IV DECREASED GLUCOSE Last administered on 08/24/18 07:58; Admin Dose 25 ML; Start 07/29/18 at 07:00 Dextrose (D50w Syringe) 50 ml Q15M PRN IV DECREASED GLUCOSE; Start 07/29/18 at 07:00 Glucagon (Glucagen) 1 mg Q15M PRN IM DECREASED GLUCOSE; Start 07/29/18 at 07:00 Glucose (Glutose) 15 gm Q15M PRN BUCCAL DECREASED GLUCOSE; Start 07/29/18 at 07:00 Alprazolam (Xanax) 0.25 mg Q8H PRN PO ANXIETY Last administered on 08/19/18 00:10; Admin Dose 0.25 MG; Start 07/29/18 at 12:30 Polyethylene Glycol (Miralax) 17 gm DAILY PO Last administered on 08/26/18 07:52; Admin Dose 17 GM; Start 07/29/18 at 12:30 Docusate Sodium (Colace) 100 mg BID PO Last administered on 08/25/18 20:43; Admin Dose 100 MG; Start 07/31/18 at 21:00 Magnesium Hydroxide (Milk Of Mag) 30 ml Q12H PRN PO STOMACH UPSET/CRAMPING Last administered on 07/31/18 21:28; Admin Dose 30 ML; Start 07/31/18 at 20:00 Al Hydrox/Mg Hydrox/Simethicone (Mag-Al Plus) 30 ml Q6H PRN PO GASTROINTESTINAL UPSET Last administered on 08/16/18 23:45; Admin Dose 30 ML; Start 08/03/18 at 17:30 Insulin Glargine (Lantus) 8 units DAILY@2000 SC Last administered on 08/25/18 20:45; Admin Dose 8 UNITS; Start 08/09/18 at 20:00 Albuterol/ Ipratropium (Duoneb) 3 ml Q2H RESP THERAPY PRN HHN sob Last administered on 08/19/18 03:28; Admin Dose 3 ML; Start 08/14/18 at 12:00 Diltiazem HCl (Cardizem Iv) 5 mg Q4 PRN IV HR>70 for Cardiac CTA Last administered on 08/19/18 03:50; Admin Dose 5 MG; Start 08/17/18 at 11:30 Lorazepam (Ativan) 1 mg Q8H PRN IV ANXIETY Last administered on 08/20/18 12:39; Admin Dose 1 MG; Start 08/17/18 at 15:30 Epoetin Glenn-epbx (Retacrit (Non-Esrd)) 20,000 unit TuThSa@1700 SC Last administered on 08/25/18 17:33; Admin Dose 20,000 UNIT; Start 08/18/18 at 17:00 Simethicone (Mylicon) 160 mg Q6H PRN PO DISTENSION/GAS/BLOATING Last administered on 08/18/18 08:49; Admin Dose 160 MG; Start 08/17/18 at 20:00 Propofol 100 ml @ 1.568 mls/ hr Q12H IV Last administered on 08/25/18 18:08; Admin Dose 4.704 MLS/HR; Start 08/19/18 at 09:30 Norepinephrine 250 ml @ 1.875 mls/ hr TITRATE IV Last administered on 08/20/18 08:57; Admin Dose 9.375 MLS/HR; Start 08/19/18 at 10:30 Insulin Aspart (Novolog Insulin Pen) NOVOLOG *MODERATE* ALGORI... Q4 SC Last administered on 08/26/18 01:47; Admin Dose 2 UNIT; Start 08/20/18 at 01:00 Lansoprazole (Prevacid) 30 mg DAILY@06 NGT Last administered on 08/26/18at 0 6:06; Admin Dose 30 MG; Start 08/21/18 at 06:00 Piperacillin Sod/ Tazobactam Sod 100 ml @ 200 mls/hr Q8 IVPB Last administered on 08/26/18 06:06; Admin Dose 200 MLS/HR; Start 08/22/18 at 22:00 Enoxaparin Sodium (Lovenox) 50 mg DAILY SC Last administered on 08/26/18 07:53; Admin Dose 50 MG; Start 08/24/18 at 09:00 Metoprolol Tartrate (Lopressor) 25 mg BID PO Last administered on 08/26/18at 07: 51; Admin Dose 25 MG; Start 08/23/18 at 21:00 Fentanyl 100 ml @ 2.5 mls/hr TITRATE IV Last administered on 08/26/18at 09:36; Admin Dose 2.5 MLS/HR; Start 08/26/18 at 09:00 Assessment/Plan Hospital Course (Demo Recall) Assessment 1. Status post cardiopulmonary arrest 2. Encephalopathy possibly toxic metabolic 3. Status post septic shock, off vasopressors at present. 4. Recurrent right pleural effusion probably metastatic in nature 5. Metastatic uterine cancer Plan 1. Continue mechanical ventilation, will attempt CPAP trial as neurological status continues to slowly improve despite encephalopathy 2. Right Pleurx catheter, vacuum drainage daily 3. Decrease vasopressors as tolerated, titrate to keep map greater than 65. 4. Overall prognosis very poor patient may not be able to be liberated from mechanical ventilation. Appreciate palliative care recommendations. Family wish to continue current level of care but do not want long-term tracheostomy and PEG tube. Critical care time 40 minutes FARHAN VALENTINO MD, [facility] Aug 26, 2018 10:14
--- NOTE | 2018-08-26 13:21 | CONS ---
Consultation Date/Type/Reason Admit Date/Time Jul 29, 2018 at 06:16 Initial Consult Date 08/10/18 Type of Consult Cardiology Requesting Provider: SANDI MURDOCK NP Date/Time of Note DATE: 08/26/18 TIME: 13:21 24 HR Interval Summary Free Text/Dictation VS reviewed - stable Exam/Review of Systems Vital Signs Vitals Vital Signs Date Temp Pulse Resp B/P (MAP) Pulse Ox O2 O2 Flow FiO2 Time Delivery Rate 08/26/18 30 13:14 08/26/18 98.6 56 21 87/45 (59) 100 Mechanical 12:00 Ventilator Intake and Output 08/25/18 08/25/18 08/26/18 1515:00 23:00 07:00 IntakeIntake Total 663.384 ml 476.912 ml 472.9 ml OutputOutput Total 145 ml 215 ml 205 ml BalanceBalance 518.384 ml 261.912 ml 267.9 ml Labs Result Diagram: 08/26/18 0430 08/26/18 0430 Results 24hrs Laboratory Tests Test 08/25/18 13:24 08/25/18 17:36 08/25/18 20:42 08/26/18 01:45 Bedside Glucose 128 133 144 144 Test 08/26/18 04:30 08/26/18 05:46 08/26/18 07:00 08/26/18 08:00 White Blood 20.4 #H Count Red Blood Count 3.19 L Hemoglobin 9.1 L Hematocrit 27.4 L Mean Corpuscular 85.9 Volume Mean Corpuscular 28.5 L Hemoglobin Mean Corpuscular 33.2 Hemoglobin Nellie nt Red Cell 17.0 H Distribution Width Platelet Count 537 H Mean Platelet 10.5 H Volume Immature 3.900 H Granulocytes % Neutrophils % Segmented 64 Neutrophils % (Manual) Band Neutrophils 1 % (Manual) Lymphocytes % 15 (Manual) Monocytes % 13 H (Manual) Eosinophils % Eosinophils % 5 (Manual) Metamyelocytes % 1 H (manual) Myelocytes % 1 H (Manual) Nucleated Red 8 H Blood Cells % Immature 0.800 H Granulocytes # Neutrophils # Neutrophils # 13.1 H (Manual) Band Neutrophils 0.2 # Lymphocytes 3.0 H (Manual) Monocytes # 2.6 H (Manual) Eosinophils # Metamyelocytes # 0.2 H Myelocytes # 0.2 H Platelet INCREASED Estimate Polychromasia 3+ Hypochromasia 1+ Anisocytosis 1+ Target Cells 1+ Sodium Level 142 Potassium Level 3.7 Chloride Level 115 H Carbon Dioxide 17 L Level Anion Gap 10 Blood Urea 44 H Nitrogen Creatinine 1.98 H Est Glomerular 25 L Filtrat Rate mL/min Glucose Level 130 Calcium Level 8.8 Phosphorus Level 3.5 Magnesium Level 2.5 Bedside Glucose 139 121 Blood Gas Blood arterial Specimen Source Arterial Blood 08/26/2018 8:26: Date Drawn 30 AM Arterial Blood 7.432 pH (Temp corrected) Arterial Blood 22.0 L pCO2 (Temp correct) Arterial Blood 107.1 H pO2 (Temp corrected) Arterial Blood 14.3 L HCO3 Arterial Blood -8.4 L Base Excess Arterial Blood 98.2 H Oxygen Saturatio n Quinten Test ACCEPTAB Arterial Blood Right Radial Gas Puncture Site Arterial 0.1 Blood Carboxyhem oglobin Arterial Blood 0.2 Methemoglobin Blood Gas A-a O2 81.0 H Differential Oxyhemoglobin 97.9 Percent Blood Gas 37.0 Temperature Blood Gas 16.0 Respiration Rate Blood Gas Actual 29 Respiration Rate Blood Gas VENT - AC Modality FiO2 30.0 Blood Gas Tidal 450.0 Volume Blood Gas Low 5.0 PEEP Setting Blood Gas DT Notified Whom Blood Gas 08/26/2018 8:48: Notified Time 24 AM Test 08/26/18 12:43 08/26/18 12:55 Blood Gas Blood arterial Specimen Source Arterial Blood 08/26/2018 12:40 Date Drawn :37 PM Arterial Blood 7.376 pH (Temp corrected) Arterial Blood 23.6 L pCO2 (Temp correct) Arterial Blood 113.9 H pO2 (Temp corrected) Arterial Blood 13.5 L HCO3 Arterial Blood -10.2 L Base Excess Arterial Blood 98.0 Oxygen Saturatio n Quinten Test ACCEPTAB Arterial Blood Right Radial Gas Puncture Site Arterial 0 Blood Carboxyhem oglobin Arterial Blood 0.2 Methemoglobin Blood Gas A-a O2 72.3 H Differential Oxyhemoglobin 97.8 Percent Blood Gas 37.0 Temperature Blood Gas Actual 22 Respiration Rate Blood Gas VENT - CPAP Modality FiO2 30.0 Blood Gas Low 5.0 PEEP Setting Blood Gas 10 Pressure Support Blood Gas M.D. Notified Whom Blood Gas 08/26/2018 12:56 Notified Time :03 PM Bedside Glucose 102 Medications Medications Current Medications IV Flush (NS 3 ml) 3 ml PER PROTOCOL IV Last administered on 08/05/18 09:07; Admin Dose 3 ML; Start 07/29/18 at 06:30 Ondansetron HCl (Zofran Inj) 4 mg Q6H PRN IV NAUSEA/VOMITING Last administered on 08/18/18 18:34; Admin Dose 4 MG; Start 07/29/18 at 06:30 Acetaminophen/ Hydrocodone Bitart ([place] (5/325)) 1 tab Q6H PRN PO .MOD PAIN 4- 6 Last administered on 08/19/18 03:42; Admin Dose 1 TAB; Start 07/29/18 at 06:30 Diagnostic Test (Pha) (Accu-Chek) 1 ea 02 XX Last administered on 08/26/18 01:47; Admin Dose 1 EA; Start 07/30/18 at 02:00 Acetaminophen (Tylenol Tab) 650 mg Q6H PRN PO .PAIN 1-3 OR TEMP Last administered on 08/17/18 05:46; Admin Dose 650 MG; Start 07/29/18 at 07:00 Eye Lubricant (Akwa Oint) 1 applic Q1H PRN BOTH EYES DRY EYES; Start 07/29/18 at 08:00 Aspirin (Halfprin) 81 mg DAILY PO Last administered on 08/26/18 07:51; Admin Dose 81 MG; Start 07/29/18 at 09:00 Atorvastatin Calcium (Lipitor) 20 mg QHS PO Last administered on 08/25/18 20:44; Admin Dose 20 MG; Start 07/29/18 at 21:00 Clopidogrel Bisulfate (plaVIX) 75 mg DAILY PO Last administered on 08/26/18 07:51; Admin Dose 75 MG; Start 07/29/18 at 09:00 Cyanocobalamin (Vitamin B12) 50 mcg DAILY PO Last administered on 08/26/18 07:51; Admin Dose 50 MCG; Start 07/29/18 at 09:00 Levothyroxine Sodium (Synthroid) 50 mcg BEFORE BREAKFAST PO Last administered on 08/26/18 06:06; Admin Dose 50 MCG; Start 07/29/18 at 07:00 Polyethyl Glycol/ Propylene Glycol (Systane 0.3-0.4% Eye Drops) 1 drop Q4H PRN BOTH EYES DRY EYES; Start 07/29/18 at 08:00 Albuterol (Ventolin Hfa) 2 puff Q4H RESP THERAPY PRN INH WHEEZING; Start 07/29/18 at 09:00 Miscellaneous Information 1 ea NOTE XX ; Start 07/29/18 at 07:00 Glucose (Glutose) 15 gm Q15M PRN PO DECREASED GLUCOSE; Start 07/29/18 at 07:00 Glucose (Glutose) 22.5 gm Q15M PRN PO DECREASED GLUCOSE; Start 07/29/18 at 07:00 Dextrose (D50w Syringe) 25 ml Q15M PRN IV DECREASED GLUCOSE Last administered on 08/24/18at 07:58; Admin Dose 25 ML; Start 07/29/18 at 07:00 Dextrose (D50w Syringe) 50 ml Q15M PRN IV DECREASED GLUCOSE; Start 07/29/18 at 07:00 Glucagon (Glucagen) 1 mg Q15M PRN IM DECREASED GLUCOSE; Start 07/29/18 at 07:00 Glucose (Glutose) 15 gm Q15M PRN BUCCAL DECREASED GLUCOSE; Start 07/29/18 at 07:00 Alprazolam (Xanax) 0.25 mg Q8H PRN PO ANXIETY Last administered on 08/19/18at 00:10; Admin Dose 0.25 MG; Start 07/29/18 at 12:30 Polyethylene Glycol (Miralax) 17 gm DAILY PO Last administered on 08/26/18at 07:52; Admin Dose 17 GM; Start 07/29/18 at 12:30 Docusate Sodium (Colace) 100 mg BID PO Last administered on 08/25/18at 20:43; Admin Dose 100 MG; Start 07/31/18 at 21:00 Magnesium Hydroxide (Milk Of Mag) 30 ml Q12H PRN PO STOMACH UPSET/CRAMPING Last administered on 07/31/18at 21:28; Admin Dose 30 ML; Start 07/31/18 at 20:00 Al Hydrox/Mg Hydrox/Simethicone (Mag-Al Plus) 30 ml Q6H PRN PO GASTROINTESTINAL UPSET Last administered on 08/16/18at 23:45; Admin Dose 30 ML; Start 08/03/18 at 17:30 Insulin Glargine (Lantus) 8 units DAILY@2000 SC Last administered on 08/25/18at 20:45; Admin Dose 8 UNITS; Start 08/09/18 at 20:00 Albuterol/ Ipratropium (Duoneb) 3 ml Q2H RESP THERAPY PRN HHN sob Last administered on 08/19/18 03:28; Admin Dose 3 ML; Start 08/14/18 at 12:00 Diltiazem HCl (Cardizem Iv) 5 mg Q4 PRN IV HR>70 for Cardiac CTA Last administered on 08/19/18 03:50; Admin Dose 5 MG; Start 08/17/18 at 11:30 Lorazepam (Ativan) 1 mg Q8H PRN IV ANXIETY Last administered on 08/20/18 12:39; Admin Dose 1 MG; Start 08/17/18 at 15:30 Epoetin Glenn-epbx (Retacrit (Non-Esrd)) 20,000 unit TuThSa@1700 SC Last administered on 08/25/18 17:33; Admin Dose 20,000 UNIT; Start 08/18/18 at 17:00 Simethicone (Mylicon) 160 mg Q6H PRN PO DISTENSION/GAS/BLOATING Last administered on 08/18/18 08:49; Admin Dose 160 MG; Start 08/17/18 at 20:00 Propofol 100 ml @ 1.568 mls/ hr Q12H IV Last administered on 08/25/18 18:08; Admin Dose 4.704 MLS/HR; Start 08/19/18 at 09:30 Norepinephrine 250 ml @ 1.875 mls/ hr TITRATE IV Last administered on 08/20/18 08:57; Admin Dose 9.375 MLS/HR; Start 08/19/18 at 10:30 Insulin Aspart (Novolog Insulin Pen) NOVOLOG *MODERATE* ALGORI... Q4 SC Last administered on 08/26/18 01:47; Admin Dose 2 UNIT; Start 08/20/18 at 01:00 Lansoprazole (Prevacid) 30 mg DAILY@06 NGT Last administered on 08/26/18 06:06; Admin Dose 30 MG; Start 08/21/18 at 06:00 Piperacillin Sod/ Tazobactam Sod 100 ml @ 200 mls/hr Q8 IVPB Last administered on 08/26/18 06:06; Admin Dose 200 MLS/HR; Start 08/22/18 at 22:00 Enoxaparin Sodium (Lovenox) 50 mg DAILY SC Last administered on 08/26/18at 07:53; Admin Dose 50 MG; Start 08/24/18 at 09:00 Metoprolol Tartrate (Lopressor) 25 mg BID PO Last administered on 08/26/18at 07:51; Admin Dose 25 MG; Start 08/23/18 at 21:00 Fentanyl 100 ml @ 2.5 mls/hr TITRATE IV Last administered on 08/26/18at 09:36; Admin Dose 2.5 MLS/HR; Start 08/26/18 at 09:00 TUAN LANGLEY MD Aug 26, 2018 13:21
--- NOTE | 2018-08-26 14:17 | CONS ---
Assessment/Plan Assessment/Plan Hospital Course (Demo Recall) No acute changes overnight patient is noncommunicative in no distress white blood cell count went up to 20.4 platelets 537 BUN 44 creatinine 1.98 Chest x-ray this morning revealed stable patchy infiltrates in the left lower lung stable large right pleural effusion and stable patchy infiltrates in the eye rated right upper lobe Antimicrobials: Zosyn ALL: Levaquin Indwelling: Endotracheal tube NG tube Stafford catheter, femoral triple-lumen catheter, Pleurx Physical examination: Well-developed fragile elderly woman who is in no distress. Head atraumatic normocephalic sclera nonicteric vehicle mucosa dry neck is supple chest rise symmetrical breath sounds diminished bases heart: S1-S2 abdomen soft bowel sounds hypoactive extremities with trace edema Assessment: 1. Persistent leukocytosis 2. Status post asystolic cardiopulmonary arrest requiring intubation 3. Persistent right pleural effusion likely malignant, possibly parapneumonic 4. 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 Acute kidney insufficiency 6. Diabetes 7. Pneumonia 8. Right mastoiditis Plan: Remains unchanged, worsening leukocytosis worrisome, will repeat cultures, add vancomycin to the regimen and send pleural fluid for cultures Consultation Date/Type/Reason Admit Date/Time Jul 29, 2018 at 06:16 Initial Consult Date 08/15/18 Type of Consult id Requesting Provider: SANDI MURDOCK NP Date/Time of Note DATE: 08/26/18 TIME: 14:16 Exam/Review of Systems Exam Vitals Vital Signs Date Temp Pulse Resp B/P (MAP) Pulse Ox O2 O2 Flow FiO2 Time Delivery Rate 08/26/18 30 13:14 08/26/18 98.6 56 21 87/45 (59) 100 Mechanical 12:00 Ventilator Intake and Output 08/25/18 08/25/18 08/26/18 1515:00 23:00 07:00 IntakeIntake Total 663.384 ml 476.912 ml 472.9 ml OutputOutput Total 145 ml 215 ml 205 ml BalanceBalance 518.384 ml 261.912 ml 267.9 ml Results Result Diagram: 08/26/18 0430 08/26/18 0430 Results 24hrs Laboratory Tests Test 08/25/18 17:36 08/25/18 20:42 08/26/18 01:45 08/26/18 04:30 Bedside Glucose 133 144 144 White Blood 20.4 #H Count Red Blood Count 3.19 L Hemoglobin 9.1 L Hematocrit 27.4 L Mean Corpuscular 85.9 Volume Mean Corpuscular 28.5 L Hemoglobin Mean Corpuscular 33.2 Hemoglobin Nellie nt Red Cell 17.0 H Distribution Width Platelet Count 537 H Mean Platelet 10.5 H Volume Immature 3.900 H Granulocytes % Neutrophils % Segmented 64 Neutrophils % (Manual) Band Neutrophils 1 % (Manual) Lymphocytes % 15 (Manual) Monocytes % 13 H (Manual) Eosinophils % Eosinophils % 5 (Manual) Metamyelocytes % 1 H (manual) Myelocytes % 1 H (Manual) Nucleated Red 8 H Blood Cells % Immature 0.800 H Granulocytes # Neutrophils # Neutrophils # 13.1 H (Manual) Band Neutrophils 0.2 # Lymphocytes 3.0 H (Manual) Monocytes # 2.6 H (Manual) Eosinophils # Metamyelocytes # 0.2 H Myelocytes # 0.2 H Platelet INCREASED Estimate Polychromasia 3+ Hypochromasia 1+ Anisocytosis 1+ Target Cells 1+ Sodium Level 142 Potassium Level 3.7 Chloride Level 115 H Carbon Dioxide 17 L Level Anion Gap 10 Blood Urea 44 H Nitrogen Creatinine 1.98 H Est Glomerular 25 L Filtrat Rate mL/min Glucose Level 130 Calcium Level 8.8 Phosphorus Level 3.5 Magnesium Level 2.5 Test 08/26/18 05:46 08/26/18 07:00 08/26/18 08:00 08/26/18 12:43 Bedside Glucose 139 121 Blood Gas Blood arterial Blood arterial Specimen Source Arterial Blood 08/26/2018 8:26: 08/26/2018 12:40 Date Drawn 30 AM :37 PM Arterial Blood 7.432 7.376 pH (Temp corrected) Arterial Blood 22.0 L 23.6 L pCO2 (Temp correct) Arterial Blood 107.1 H 113.9 H pO2 (Temp corrected) Arterial Blood 14.3 L 13.5 L HCO3 Arterial Blood -8.4 L -10.2 L Base Excess Arterial Blood 98.2 H 98.0 Oxygen Saturatio n Quinten Test ACCEPTAB ACCEPTAB Arterial Blood Right Radial Right Radial Gas Puncture Site Arterial 0.1 0 Blood Carboxyhem oglobin Arterial Blood 0.2 0.2 Methemoglobin Blood Gas A-a O2 81.0 H 72.3 H Differential Oxyhemoglobin 97.9 97.8 Percent Blood Gas 37.0 37.0 Temperature Blood Gas 16.0 Respiration Rate Blood Gas Actual 29 22 Respiration Rate Blood Gas VENT - AC VENT - CPAP Modality FiO2 30.0 30.0 Blood Gas Tidal 450.0 Volume Blood Gas Low 5.0 5.0 PEEP Setting Blood Gas MAURICIO Yip Notified Whom Blood Gas 08/26/2018 8:48: 08/26/2018 12:56 Notified Time 24 AM :03 PM Blood Gas 10 Pressure Support Test 08/26/18 12:55 Bedside Glucose 102 Medications Medication Current Medications IV Flush (NS 3 ml) 3 ml PER PROTOCOL IV Last administered on 08/05/18 09:07; Admin Dose 3 ML; Start 07/29/18 at 06:30 Ondansetron HCl (Zofran Inj) 4 mg Q6H PRN IV NAUSEA/VOMITING Last administered on 08/18/18 18:34; Admin Dose 4 MG; Start 07/29/18 at 06:30 Acetaminophen/ Hydrocodone Bitart ([place] (5/325)) 1 tab Q6H PRN PO .MOD PAIN 4- 6 Last administered on 08/19/18 03:42; Admin Dose 1 TAB; Start 07/29/18 at 06:30 Diagnostic Test (Pha) (Accu-Chek) 1 ea 02 XX Last administered on 08/26/18 01: 47; Admin Dose 1 EA; Start 07/30/18 at 02:00 Acetaminophen (Tylenol Tab) 650 mg Q6H PRN PO .PAIN 1-3 OR TEMP Last administered on 08/17/18 05:46; Admin Dose 650 MG; Start 07/29/18 at 07:00 Eye Lubricant (Akwa Oint) 1 applic Q1H PRN BOTH EYES DRY EYES; Start 07/29/18 at 08:00 Aspirin (Halfprin) 81 mg DAILY PO Last administered on 08/26/18 07:51; Admin Dose 81 MG; Start 07/29/18 at 09:00 Atorvastatin Calcium (Lipitor) 20 mg QHS PO Last administered on 08/25/18 20:44; Admin Dose 20 MG; Start 07/29/18 at 21:00 Clopidogrel Bisulfate (plaVIX) 75 mg DAILY PO Last administered on 08/26/18 07:51; Admin Dose 75 MG; Start 07/29/18 at 09:00 Cyanocobalamin (Vitamin B12) 50 mcg DAILY PO Last administered on 08/26/18at 07:51; Admin Dose 50 MCG; Start 07/29/18 at 09:00 Levothyroxine Sodium (Synthroid) 50 mcg BEFORE BREAKFAST PO Last administered on 08/26/18at 06:06; Admin Dose 50 MCG; Start 07/29/18 at 07:00 Polyethyl Glycol/ Propylene Glycol (Systane 0.3-0.4% Eye Drops) 1 drop Q4H PRN BOTH EYES DRY EYES; Start 07/29/18 at 08:00 Albuterol (Ventolin Hfa) 2 puff Q4H RESP THERAPY PRN INH WHEEZING; Start 07/29/18 at 09:00 Miscellaneous Information 1 ea NOTE XX ; Start 07/29/18 at 07:00 Glucose (Glutose) 15 gm Q15M PRN PO DECREASED GLUCOSE; Start 07/29/18 at 07:00 Glucose (Glutose) 22.5 gm Q15M PRN PO DECREASED GLUCOSE; Start 07/29/18 at 07:00 Dextrose (D50w Syringe) 25 ml Q15M PRN IV DECREASED GLUCOSE Last administered on 08/24/18at 07:58; Admin Dose 25 ML; Start 07/29/18 at 07:00 Dextrose (D50w Syringe) 50 ml Q15M PRN IV DECREASED GLUCOSE; Start 07/29/18 at 07:00 Glucagon (Glucagen) 1 mg Q15M PRN IM DECREASED GLUCOSE; Start 07/29/18 at 07:00 Glucose (Glutose) 15 gm Q15M PRN BUCCAL DECREASED GLUCOSE; Start 07/29/18 at 07:00 Alprazolam (Xanax) 0.25 mg Q8H PRN PO ANXIETY Last administered on 08/19/18at 00:10; Admin Dose 0.25 MG; Start 07/29/18 at 12:30 Polyethylene Glycol (Miralax) 17 gm DAILY PO Last administered on 08/26/18at 07:52; Admin Dose 17 GM; Start 07/29/18 at 12:30 Docusate Sodium (Colace) 100 mg BID PO Last administered on 08/25/18at 20:43; Admin Dose 100 MG; Start 07/31/18 at 21:00 Magnesium Hydroxide (Milk Of Mag) 30 ml Q12H PRN PO STOMACH UPSET/CRAMPING Last administered on 07/31/18 21:28; Admin Dose 30 ML; Start 07/31/18 at 20:00 Al Hydrox/Mg Hydrox/Simethicone (Mag-Al Plus) 30 ml Q6H PRN PO GASTROINTESTINAL UPSET Last administered on 08/16/18 23:45; Admin Dose 30 ML; Start 08/03/18 at 17:30 Insulin Glargine (Lantus) 8 units DAILY@2000 SC Last administered on 08/25/18 20:45; Admin Dose 8 UNITS; Start 08/09/18 at 20:00 Albuterol/ Ipratropium (Duoneb) 3 ml Q2H RESP THERAPY PRN HHN sob Last administered on 08/19/18 03:28; Admin Dose 3 ML; Start 08/14/18 at 12:00 Diltiazem HCl (Cardizem Iv) 5 mg Q4 PRN IV HR>70 for Cardiac CTA Last administered on 08/19/18 03:50; Admin Dose 5 MG; Start 08/17/18 at 11:30 Lorazepam (Ativan) 1 mg Q8H PRN IV ANXIETY Last administered on 08/20/18 12:39; Admin Dose 1 MG; Start 08/17/18 at 15:30 Epoetin Glenn-epbx (Retacrit (Non-Esrd)) 20,000 unit TuThSa@1700 SC Last administered on 08/25/18 17:33; Admin Dose 20,000 UNIT; Start 08/18/18 at 17:00 Simethicone (Mylicon) 160 mg Q6H PRN PO DISTENSION/GAS/BLOATING Last admi nistered on 08/18/18 08:49; Admin Dose 160 MG; Start 08/17/18 at 20:00 Propofol 100 ml @ 1.568 mls/ hr Q12H IV Last administered on 08/25/18 18:08; Admin Dose 4.704 MLS/HR; Start 08/19/18 at 09:30 Norepinephrine 250 ml @ 1.875 mls/ hr TITRATE IV Last administered on 08/20/18 08:57; Admin Dose 9.375 MLS/HR; Start 08/19/18 at 10:30 Insulin Aspart (Novolog Insulin Pen) NOVOLOG *MODERATE* ALGORI... Q4 SC Last administered on 08/26/18 01:47; Admin Dose 2 UNIT; Start 08/20/18 at 01:00 Lansoprazole (Prevacid) 30 mg DAILY@06 NGT Last administered on 08/26/18 06:06; Admin Dose 30 MG; Start 08/21/18 at 06:00 Piperacillin Sod/ Tazobactam Sod 100 ml @ 200 mls/hr Q8 IVPB Last administered on 08/26/18 06:06; Admin Dose 200 MLS/HR; Start 08/22/18 at 22:00 Enoxaparin Sodium (Lovenox) 50 mg DAILY SC Last administered on 08/26/18 07:53; Admin Dose 50 MG; Start 08/24/18 at 09:00 Metoprolol Tartrate (Lopressor) 25 mg BID PO Last administered on 08/26/18 07:51; Admin Dose 25 MG; Start 08/23/18 at 21:00 Fentanyl 100 ml @ 2.5 mls/hr TITRATE IV Last administered on 08/26/18 09:36; Admin Dose 2.5 MLS/HR; Start 08/26/18 at 09:00 DENISSE THAO NP Aug 26, 2018 14:17
[2018-08-26] MEDS ORDERED: VANCOMYCIN IV PER PHARMACY XX SCH (14:30)
[2018-08-26] MEDS ORDERED: VANCOMYCIN 1 GM 250 ML IVPB SCH (16:00)
[2018-08-26] MEDS: ATORVASTATIN 20 MG TAB PO SCH (20:49)
[2018-08-26] MEDS: INSULIN GLARGINE [LANTus] (100 UNITS/ML) SYG SC SCH (20:51)
[2018-08-27] VITALS (83 sets, daily range): BP systolic 83–126; BP diastolic 38–90; PULSE 49–100; RESP 0–35
[2018-08-27] MEDS: ACCU-CHEK XX SCH (01:38)
[2018-08-27] MEDS: INSULIN ASPART [NOVOLOG] 3 ML PEN SC SCH ×6 (01:40→20:27)
[2018-08-27] MEDS: PIPER-TAZO 3.375 GM IV (PMX) 100 ML IVPB SCH ×3 (06:19→22:21)
[2018-08-27] MEDS: LANSOPRAZOLE 30 MG CAP NGT SCH (06:19)
[2018-08-27] MEDS: LEVOTHYROXINE 50 MCG TAB PO SCH (06:19)
[2018-08-27] MEDS ORDERED: POTASSIUM CHLORIDE 20 MEQ POWDER FOR ORAL SOLN GTB ONE (07:30)
--- NOTE | 2018-08-27 08:14 | PN ---
DATE: 08/27/2018 SUBJECTIVE: The patient remains critically ill on full ventilatory support. The patient remains on tube feedings. No other events noted. OBJECTIVE: VITAL SIGNS: Blood pressure is 107/50, respirations 17, pulse 68, temperature 98.6. HEENT: Head is normocephalic. NECK: Supple. HEART: Regular rate. LUNGS: Show diminished breath sounds at the base. ABDOMEN: Soft, nontender to palpation without rebound or guarding. EXTREMITIES: Negative for clubbing, cyanosis. Positive edema. DERMATOLOGIC: No rashes. MUSCULOSKELETAL: No joint effusion. NEUROLOGIC: No change in exam. MEDICATIONS: Reviewed. LABORATORY DATA: Has been reviewed. IMAGING STUDIES: Have been reviewed. ABG was reviewed. ASSESSMENT AND PLAN: 1. Nonoliguric acute kidney injury on top of chronic kidney disease with previous baseline creatinin e of 1.2 to 1.4 mg/dL. Etiology of acute kidney injury is secondary hemodynamics, tubular injury. T he patient remains in injury phase of acute as renal function continues to decline. Plan at this poi nt is to continue current treatment plan, supportive care, renally dose all meds. 2. Volume overload. Etiology secondary to diastolic heart failure, sepsis, IV fluids. The patient is status post IV Lasix. Will hold diuretics today in setting of worsening renal function. Monitor closely. 3. Anemia. Monitor hemoglobin and hematocrit levels. 4. Diastolic heart failure. Will continue intermittent diuretic therapy as needed. Holding diureti cs today. 5. Hyperkalemia. Continue to monitor and replete. 6. Mineral bone disorder, monitor calcium and phosphorus levels. 7. Ventilator-dependent respiratory failure. Vent settings and ABG was reviewed. Continue to monit or. 8. Pleural effusion, status post PleurX catheter placement. Continue to monitor. 9. Coronary artery disease. Continue medical management. Follow up with cardiology. 10. Diabetes. Continue current insulin regimen. 11. Hypothyroidism. Continue Synthroid. 12. Metastatic carcinosarcoma of the uterus. Continue to monitor. Follow up with oncology. 13. Sepsis, status post shock. Continue current medical regimen. 14. Encephalopathy, etiology is toxic metabolic. 15. Status post cardiac arrest. Dictated By: JACOB KAUFMAN/EMA Conf#: [id number] DID#: [id number] CC: TAN MAIER MD;*EndCC*
[2018-08-27] MEDS: CLOPIDOGREL 75 MG TAB PO SCH (08:16)
[2018-08-27] MEDS: ASPIRIN (EC) 81 MG TAB PO SCH (08:16)
[2018-08-27] MEDS: DOCUSATE SODIUM 100 MG CAP PO SCH (08:16)
[2018-08-27] MEDS: POLYETHYLENE GLYCOL 17 GM PACKET PO SCH (08:17)
[2018-08-27] MEDS: ENOXAPARIN 60 MG/0.6 ML SYG SC SCH (08:18)
[2018-08-27] MEDS: CYANOCOBALAMIN 100 MCG TAB PO SCH (08:18)
[2018-08-27] MEDS: METOPROLOL 25 MG TAB PO SCH ×2 (08:19→20:27)
[2018-08-27] MEDS: PROPOFOL 100 ML IV SCH ×3 (08:28→22:21)
--- NOTE | 2018-08-27 08:59 | CONS ---
Assessment/Plan Assessment/Plan Assessment/Plan (Daily) Reason for consultation palliative care. Long conversation with patient's 2 sons were very pleasant and understanding that her mother is extremely ill at this time. Patient is suffering from hypoxemic respiratory failure she is intubated she is in the intensive care unit. She is undergoing CPAP trials but has failed at least once the voice for the family are the 2 sons to make all the decision for patient's ongoing level of care. My understanding now that they do not want a PEG and trach . They are extremely concerned that she may become extremely short of breath and at the end of her life suffering. I assured him that this would not happen we assured them and that will not happen they have no past experience with anybody in the family suffering with such a serious medical illness. Essentially at the end of the conversation patient's 2 sons it very clear that they were leaning towards no PEG or trach and I believe no reintubation but that needs to be clarified. She is palliative care scale is 10%. My recommendation is to contact me over the weekend if possible there were no psychosocial social spiritual existential reasons that came up during our conversation. Ethical issues were covered with family members CODE STATUS hopefully will be changed to the DNR/DNI and no PEG no trach but this is to be clarified today August 27, 2018. Consultation Date/Type/Reason Admit Date/Time Jul 29, 2018 at 06:16 Date/Time of Note DATE: 08/27/18 TIME: 08:48 Past Medical History Medical History: congestive heart failure, coronary artery disease Home Meds Active Scripts Magnesium Oxide* (Mag-Oxide*) 400 Mg Tablet, 400 MG PO BID for 3 Days, #10 TAB Prov:FERNANDO YANCEY MD 07/08/18 Lactobacillus Rhamnosus GG (Culturelle) 1 Each Capsule, 1 CAP PO BID for 14 Days, #30 CAP Prov:FERNANDO YANCEY MD 07/08/18 Acetaminophen* (Tylenol*) 325 Mg Tablet, 650 MG PO Q6H PRN for .PAIN 1-3 OR TEMP for 10 Days, #10 TAB Prov:FERNANDO YANCEY MD 07/08/18 Lisinopril* (Lisinopril*) 5 Mg Tablet, 2.5 MG PO DAILY for 15 Days, #15 TAB Prov:FERNANDO YANCEY MD 07/08/18 Sulfamethoxazole/Trimethoprim (Sulfamethoxazole-Tmp Ds Tablet) 1 Each Tablet, 1 TAB PO BID for 5 Days, #10 TAB Prov:FERNANDO YANCEY MD 07/08/18 Reported Medications Sodium Bicarbonate* (Sodium Bicarbonate*) 650 Mg Tablet, 650 MG PO TID, TAB 07/05/18 Propylene Glycol-Peg 400 (Systane 0.3-0.4% Eye Drops) 0.3-0.4 % - 30 Ml Drops, 1 DROP BOTH EYES Q4H PRN for DRY EYES, #1 BOTTLE 07/05/18 Pantoprazole* (Protonix*) 40 Mg Tablet.dr, 40 MG PO QAM, TAB 07/05/18 Ondansetron Hcl* (Zofran*) 8 Mg Tablet, 8 MG PO Q6H PRN for NAUSEA AND OR VOMITING, TAB 07/05/18 Metoprolol Succinate* (Toprol XL*) 25 Mg Tab.sr.24h, 25 MG PO BID, #30 TAB 07/05/18 Metformin* (Glucophage*) 500 Mg Tab, 500 MG PO WITH BREAKFAST, #30 TAB 07/05/18 Levothyroxine Sodium* (Synthroid*) 50 Mcg Tablet, 50 MCG PO BEFORE BREAKFAST, #30 TAB 07/05/18 Hydrocodone/Acetaminophen ([place] 5-325 Tablet) 1 Each Tablet, 1 EACH PO Q6 PRN for PAIN, TAB 07/05/18 [place]-3 Fatty Acids/Fish Oil (Fish Oil 1,000 mg Capsule) 1 Each Capsule, 1 EACH PO DAILY, CAP 07/05/18 Cyanocobalamin* (Vitamin B-12*) 50 Mcg Tablet, 50 MCG PO DAILY, TAB 07/05/18 Clopidogrel Bisulfate (Clopidogrel) 75 Mg Tablet, 75 MG PO DAILY, #30 TAB 07/05/18 Atorvastatin Calcium* (Atorvastatin Calcium*) 20 Mg Tablet, 20 MG PO QHS, #30 TAB 07/05/18 Aspirin* (Aspirin* EC) 81 Mg Tablet.dr, 81 MG PO DAILY, TAB 07/05/18 Artificial Tears* (Akwa Oint*) 3.5 Gm Oint, 1 APPLIC BOTH EYES Q1H PRN for DRY EYES, #1 TUB 07/05/18 Albuterol Sulfate (Proair Respiclick) 90 Mcg Aer.pow.ba, 2 PUFFS INHALATION Q4 PRN for WHEEZING, BOTTLE 07/05/18 Medications Current Medications IV Flush (NS 3 ml) 3 ml PER PROTOCOL IV Last administered on 08/05/18 09:07; Ad min Dose 3 ML; Start 07/29/18 at 06:30 Ondansetron HCl (Zofran Inj) 4 mg Q6H PRN IV NAUSEA/VOMITING Last administered on 08/18/18 18:34; Admin Dose 4 MG; Start 07/29/18 at 06:30 Acetaminophen/ Hydrocodone Bitart ([place] (5/325)) 1 tab Q6H PRN PO .MOD PAIN 4- 6 Last administered on 08/19/18 03:42; Admin Dose 1 TAB; Start 07/29/18 at 06:30 Diagnostic Test (Pha) (Accu-Chek) 1 ea 02 XX Last administered on 08/27/18 01:38; Admin Dose 1 EA; Start 07/30/18 at 02:00 Acetaminophen (Tylenol Tab) 650 mg Q6H PRN PO .PAIN 1-3 OR TEMP Last administered on 08/17/18 05:46; Admin Dose 650 MG; Start 07/29/18 at 07:00 Eye Lubricant (Akwa Oint) 1 applic Q1H PRN BOTH EYES DRY EYES; Start 07/29/18 at 08:00 Aspirin (Halfprin) 81 mg DAILY PO Last administered on 08/27/18 08:16; Admin Dose 81 MG; Start 07/29/18 at 09:00 Atorvastatin Calcium (Lipitor) 20 mg QHS PO Last administered on 08/26/18 20:49; Admin Dose 20 MG; Start 07/29/18 at 21:00 Clopidogrel Bisulfate (plaVIX) 75 mg DAILY PO Last administered on 08/27/18 08:16; Admin Dose 75 MG; Start 07/29/18 at 09:00 Cyanocobalamin (Vitamin B12) 50 mcg DAILY PO Last administered on 08/27/18 08:18; Admin Dose 50 MCG; Start 07/29/18 at 09:00 Levothyroxine Sodium (Synthroid) 50 mcg BEFORE BREAKFAST PO Last administered on 08/27/18 06:19; Admin Dose 50 MCG; Start 07/29/18 at 07:00 Polyethyl Glycol/ Propylene Glycol (Systane 0.3-0.4% Eye Drops) 1 drop Q4H PRN BOTH EYES DRY EYES; Start 07/29/18 at 08:00 Albuterol (Ventolin Hfa) 2 puff Q4H RESP THERAPY PRN INH WHEEZING; Start 07/29/18 at 09:00 Miscellaneous Information 1 ea NOTE XX ; Start 07/29/18 at 07:00 Glucose (Glutose) 15 gm Q15M PRN PO DECREASED GLUCOSE; Start 07/29/18 at 07:00 Glucose (Glutose) 22.5 gm Q15M PRN PO DECREASED GLUCOSE; Start 07/29/18 at 07:00 Dextrose (D50w Syringe) 25 ml Q15M PRN IV DECREASED GLUCOSE Last administered on 08/24/18at 07:58; Admin Dose 25 ML; Start 07/29/18 at 07:00 Dextrose (D50w Syringe) 50 ml Q15M PRN IV DECREASED GLUCOSE; Start 07/29/18 at 07:00 Glucagon (Glucagen) 1 mg Q15M PRN IM DECREASED GLUCOSE; Start 07/29/18 at 07:00 Glucose (Glutose) 15 gm Q15M PRN BUCCAL DECREASED GLUCOSE; Start 07/29/18 at 07:00 Alprazolam (Xanax) 0.25 mg Q8H PRN PO ANXIETY Last administered on 08/19/18at 00:10; Admin Dose 0.25 MG; Start 07/29/18 at 12:30 Polyethylene Glycol (Miralax) 17 gm DAILY PO Last administered on 08/27/18at 08:17; Admin Dose 17 GM; Start 07/29/18 at 12:30 Docusate Sodium (Colace) 100 mg BID PO Last administered on 08/26/18at 20:49; Admin Dose 100 MG; Start 07/31/18 at 21:00 Magnesium Hydroxide (Milk Of Mag) 30 ml Q12H PRN PO STOMACH UPSET/CRAMPING Last administered on 07/31/18at 21:28; Admin Dose 30 ML; Start 07/31/18 at 20:00 Al Hydrox/Mg Hydrox/Simethicone (Mag-Al Plus) 30 ml Q6H PRN PO GASTROINTESTINAL UPSET Last administered on 08/16/18at 23:45; Admin Dose 30 ML; Start 08/03/18 at 17:30 Insulin Glargine (Lantus) 8 units DAILY@2000 SC Last administered on 08/26/18 20:51; Admin Dose 8 UNITS; Start 08/09/18 at 20:00 Albuterol/ Ipratropium (Duoneb) 3 ml Q2H RESP THERAPY PRN HHN sob Last administered on 08/19/18 03:28; Admin Dose 3 ML; Start 08/14/18 at 12:00 Diltiazem HCl (Cardizem Iv) 5 mg Q4 PRN IV HR>70 for Cardiac CTA Last administered on 08/19/18 03:50; Admin Dose 5 MG; Start 08/17/18 at 11:30 Lorazepam (Ativan) 1 mg Q8H PRN IV ANXIETY Last administered on 08/20/18 12:39; Admin Dose 1 MG; Start 08/17/18 at 15:30 Epoetin Glenn-epbx (Retacrit (Non-Esrd)) 20,000 unit TuThSa@1700 SC Last administered on 08/25/18 17:33; Admin Dose 20,000 UNIT; Start 08/18/18 at 17:00 Simethicone (Mylicon) 160 mg Q6H PRN PO DISTENSION/GAS/BLOATING Last administered on 08/18/18 08:49; Admin Dose 160 MG; Start 08/17/18 at 20:00 Propofol 100 ml @ 1.568 mls/ hr Q12H IV Last administered on 08/27/18 08:28; Admin Dose 3.136 MLS/HR; Start 08/19/18 at 09:30 Norepinephrine 250 ml @ 1.875 mls/ hr TITRATE IV Last administered on 08/20/18 08:57; Admin Dose 9.375 MLS/HR; Start 08/19/18 at 10:30 Insulin Aspart (Novolog Insulin Pen) NOVOLOG *MODERATE* ALGORI... Q4 SC Last administered on 08/27/18 01:40; Admin Dose 2 UNIT; Start 08/20/18 at 01:00 Lansoprazole (Prevacid) 30 mg DAILY@06 NGT Last administered on 08/27/18 06:19; Admin Dose 30 MG; Start 08/21/18 at 06:00 Piperacillin Sod/ Tazobactam Sod 100 ml @ 200 mls/hr Q8 IVPB Last administered on 08/27/18at 06:19; Admin Dose 200 MLS/HR; Start 08/22/18 at 22:00 Enoxaparin Sodium (Lovenox) 50 mg DAILY SC Last administered on 08/27/18at 08:18; Admin Dose 50 MG; Start 08/24/18 at 09:00 Metoprolol Tartrate (Lopressor) 25 mg BID PO Last administered on 08/26/18at 07:51; Admin Dose 25 MG; Start 08/23/18 at 21:00 Fentanyl 100 ml @ 2.5 mls/hr TITRATE IV Last administered on 08/26/18at 09:36; Admin Dose 2.5 MLS/HR; Start 08/26/18 at 09:00 Vancomycin HCl (Vanco Iv Per Pharmacy) VANCOMYCIN PER PHARMACY PER PROTOCOL XX ; Start 08/26/18 at 14:30 Vancomycin HCl 100 ml @ 100 mls/hr Q24H IVPB ; Start 08/27/18 at 16:00 Allergies: Coded Allergies: levofloxacin (Verified Allergy, Unknown, 08/23/18) Past Surgical History Past Surgical Hx: other (Refer to history of present illness) Social History Alcohol Use: none Smoking Status: Never smoker Drug Use: none Exam/Review of Systems Exam Vitals Vital Signs Date Temp Pulse Resp B/P (MAP) Pulse Ox O2 O2 Flow FiO2 Time Delivery Rate 08/27/18 68 17 107/50 100 06:30 (69) 08/27/18 Mechanical 06:00 Ventilator 08/27/18 30 05:25 08/27/18 98.5 04:00 Intake and Output 08/26/18 08/26/18 08/27/18 1515:00 23:00 07:00 IntakeIntake Total 285.226 ml 632.112 ml 537.254 ml OutputOutput Total 1540 ml 205 ml 175 ml BalanceBalance -1254.774 ml 427.112 ml 362.254 ml Results Result Diagram: 08/27/18 0400 08/27/18 0400 Results 24hrs Laboratory Tests Test 08/26/18 12:43 08/26/18 12:55 08/26/18 14:20 08/26/18 16:09 Blood Gas Blood arterial Specimen Source Arterial Blood 08/26/2018 12:40 Date Drawn :37 PM Arterial Blood 7.376 pH (Temp corrected) Arterial Blood 23.6 L pCO2 (Temp correct) Arterial Blood 113.9 H pO2 (Temp corrected) Arterial Blood 13.5 L HCO3 Arterial Blood -10.2 L Base Excess Arterial Blood 98.0 Oxygen Saturatio n Quinten Test ACCEPTAB Arterial Blood Right Radial Gas Puncture Site Arterial 0 Blood Carboxyhem oglobin Arterial Blood 0.2 Methemoglobin Blood Gas A-a O2 72.3 H Differential Oxyhemoglobin 97.8 Percent Blood Gas 37.0 Temperature Blood Gas Actual 22 Respiration Rate Blood Gas VENT - CPAP Modality FiO2 30.0 Blood Gas Low 5.0 PEEP Setting Blood Gas 10 Pressure Support Blood Gas M.D. Notified Whom Blood Gas 08/26/2018 12:56 Notified Time :03 PM Bedside Glucose 102 126 Urine Color YELLOW Urine Clarity SLIGHTLY CLOUDY A Urine pH 5.0 Urine Specific 1.010 [place] Urine Ketones NEGATIVE Urine Nitrite NEGATIVE Urine Bilirubin NEGATIVE Urine NEGATIVE Urobilinogen Urine Leukocyte NEGATIVE Esterase Urine 166 H Microscopic RBC Urine 13 H Microscopic WBC Urine Bacteria FEW A Urine Hemoglobin 3+ H Urine Random 22.56 Creatinine Urine Random 109 H Sodium Urine Glucose NEGATIVE Urine Total 41.0 H Protein Test 08/26/18 20:43 08/27/18 01:38 08/27/18 04:00 08/27/18 04:34 Bedside Glucose 118 148 124 White Blood 17.0 H Count Red Blood Count 3.06 L Hemoglobin 8.5 L Hematocrit 26.5 L Mean Corpuscular 86.6 Volume Mean Corpuscular 27.8 L Hemoglobin Mean Corpuscular 32.1 Hemoglobin Nellie nt Red Cell 17.4 H Distribution Width Platelet Count 535 H Mean Platelet 10.4 Volume Immature 4.900 H Granulocytes % Neutrophils % 64.6 Lymphocytes % 10.7 L Monocytes % 13.8 H Eosinophils % 5.4 Basophils % 0.6 Nucleated Red 6.1 H Blood Cells % Immature 0.830 H Granulocytes # Neutrophils # 11.0 H Lymphocytes # 1.8 Monocytes # 2.3 H Eosinophils # 0.9 H Basophils # 0.1 Nucleated Red 1.0 H Blood Cells # Sodium Level 143 Potassium Level 3.4 L Chloride Level 116 H Carbon Dioxide 16 L Level Anion Gap 11 Blood Urea 50 H Nitrogen Creatinine 2.14 H Est Glomerular 23 L Filtrat Rate mL/min Glucose Level 122 Calcium Level 8.7 Phosphorus Level 4.2 Magnesium Level 2.5 Test 08/27/18 07:00 08/27/18 08:26 Blood Gas Blood arterial Specimen Source Arterial Blood 08/27/2018 8:03:0 Date Drawn 8 AM Arterial Blood 7.397 pH (Temp corrected) Arterial Blood 23.5 L pCO2 (Temp correct) Arterial Blood 108.2 H pO2 (Temp corrected) Arterial Blood 14.1 L HCO3 Arterial Blood -9.3 L Base Excess Arterial Blood 98.1 H Oxygen Saturatio n Quinten Test ACCEPTAB Arterial Blood Right Radial Gas Puncture Site Arterial 0 Blood Carboxyhem oglobin Arterial Blood 0.2 Methemoglobin Blood Gas A-a O2 78.1 H Differential Oxyhemoglobin 97.9 Percent Blood Gas 37.0 Temperature Blood Gas 16.0 Respiration Rate Blood Gas Actual 19 Respiration Rate Blood Gas VENT - AC Modality FiO2 30.0 Blood Gas Tidal 45.0 Volume Blood Gas Low 5.0 PEEP Setting Blood Gas TM Notified Whom Blood Gas 08/27/2018 8:33:4 Notified Time 8 AM Bedside Glucose 121 Medications Medication Current Medications IV Flush (NS 3 ml) 3 ml PER PROTOCOL IV Last administered on 08/05/18 09:07; Admin Dose 3 ML; Start 07/29/18 at 06:30 Ondansetron HCl (Zofran Inj) 4 mg Q6H PRN IV NAUSEA/VOMITING Last administered on 08/18/18at 18:34; Admin Dose 4 MG; Start 07/29/18 at 06:30 Acetaminophen/ Hydrocodone Bitart ([place] (5/325)) 1 tab Q6H PRN PO .MOD PAIN 4- 6 Last administered on 08/19/18at 03:42; Admin Dose 1 TAB; Start 07/29/18 at 06:30 Diagnostic Test (Pha) (Accu-Chek) 1 ea 02 XX Last administered on 08/27/18at 01:38; Admin Dose 1 EA; Start 07/30/18 at 02:00 Acetaminophen (Tylenol Tab) 650 mg Q6H PRN PO .PAIN 1-3 OR TEMP Last administered on 08/17/18 05:46; Admin Dose 650 MG; Start 07/29/18 at 07:00 Eye Lubricant (Akwa Oint) 1 applic Q1H PRN BOTH EYES DRY EYES; Start 07/29/18 at 08:00 Aspirin (Halfprin) 81 mg DAILY PO Last administered on 08/27/18 08:16; Admin Dose 81 MG; Start 07/29/18 at 09:00 Atorvastatin Calcium (Lipitor) 20 mg QHS PO Last administered on 08/26/18at 20:49; Admin Dose 20 MG; Start 07/29/18 at 21:00 Clopidogrel Bisulfate (plaVIX) 75 mg DAILY PO Last administered on 08/27/18 08:16; Admin Dose 75 MG; Start 07/29/18 at 09:00 Cyanocobalamin (Vitamin B12) 50 mcg DAILY PO Last administered on 08/27/18 08:18; Admin Dose 50 MCG; Start 07/29/18 at 09:00 Levothyroxine Sodium (Synthroid) 50 mcg BEFORE BREAKFAST PO Last administered on 08/27/18 06:19; Admin Dose 50 MCG; Start 07/29/18 at 07:00 Polyethyl Glycol/ Propylene Glycol (Systane 0.3-0.4% Eye Drops) 1 drop Q4H PRN BOTH EYES DRY EYES; Start 07/29/18 at 08:00 Albuterol (Ventolin Hfa) 2 puff Q4H RESP THERAPY PRN INH WHEEZING; Start 07/29/18 at 09:00 Miscellaneous Information 1 ea NOTE XX ; Start 07/29/18 at 07:00 Glucose (Glutose) 15 gm Q15M PRN PO DECREASED GLUCOSE; Start 07/29/18 at 07:00 Glucose (Glutose) 22.5 gm Q15M PRN PO DECREASED GLUCOSE; Start 07/29/18 at 07:00 Dextrose (D50w Syringe) 25 ml Q15M PRN IV DECREASED GLUCOSE Last administered on 08/24/18at 07:58; Admin Dose 25 ML; Start 07/29/18 at 07:00 Dextrose (D50w Syringe) 50 ml Q15M PRN IV DECREASED GLUCOSE; Start 07/29/18 at 07:00 Glucagon (Glucagen) 1 mg Q15M PRN IM DECREASED GLUCOSE; Start 07/29/18 at 07:00 Glucose (Glutose) 15 gm Q15M PRN BUCCAL DECREASED GLUCOSE; Start 07/29/18 at 07:00 Alprazolam (Xanax) 0.25 mg Q8H PRN PO ANXIETY Last administered on 08/19/18 00:10; Admin Dose 0.25 MG; Start 07/29/18 at 12:30 Polyethylene Glycol (Miralax) 17 gm DAILY PO Last administered on 08/27/18 08:17; Admin Dose 17 GM; Start 07/29/18 at 12:30 Docusate Sodium (Colace) 100 mg BID PO Last administered on 08/26/18 20:49; Admin Dose 100 MG; Start 07/31/18 at 21:00 Magnesium Hydroxide (Milk Of Mag) 30 ml Q12H PRN PO STOMACH UPSET/CRAMPING Last administered on 07/31/18 21:28; Admin Dose 30 ML; Start 07/31/18 at 20:00 Al Hydrox/Mg Hydrox/Simethicone (Mag-Al Plus) 30 ml Q6H PRN PO GASTROINTESTINAL UPSET Last administered on 08/16/18 23:45; Admin Dose 30 ML; Start 08/03/18 at 17:30 Insulin Glargine (Lantus) 8 units DAILY@2000 SC Last administered on 08/26/18 20:51; Admin Dose 8 UNITS; Start 08/09/18 at 20:00 Albuterol/ Ipratropium (Duoneb) 3 ml Q2H RESP THERAPY PRN HHN sob Last administered on 08/19/18 03:28; Admin Dose 3 ML; Start 08/14/18 at 12:00 Diltiazem HCl (Cardizem Iv) 5 mg Q4 PRN IV HR>70 for Cardiac CTA Last administered on 08/19/18 03:50; Admin Dose 5 MG; Start 08/17/18 at 11:30 Lorazepam (Ativan) 1 mg Q8H PRN IV ANXIETY Last administered on 08/20/18 12:39; Admin Dose 1 MG; Start 08/17/18 at 15:30 Epoetin Glenn-epbx (Retacrit (Non-Esrd)) 20,000 unit TuThSa@1700 SC Last administered on 08/25/18 17:33; Admin Dose 20,000 UNIT; Start 08/18/18 at 17:00 Simethicone (Mylicon) 160 mg Q6H PRN PO DISTENSION/GAS/BLOATING Last admini stered on 08/18/18 08:49; Admin Dose 160 MG; Start 08/17/18 at 20:00 Propofol 100 ml @ 1.568 mls/ hr Q12H IV Last administered on 08/27/18 08:28; Admin Dose 3.136 MLS/HR; Start 08/19/18 at 09:30 Norepinephrine 250 ml @ 1.875 mls/ hr TITRATE IV Last administered on 08/20/18at 08:57; Admin Dose 9.375 MLS/HR; Start 08/19/18 at 10:30 Insulin Aspart (Novolog Insulin Pen) NOVOLOG *MODERATE* ALGORI... Q4 SC Last administered on 08/27/18 01:40; Admin Dose 2 UNIT; Start 08/20/18 at 01:00 Lansoprazole (Prevacid) 30 mg DAILY@06 NGT Last administered on 08/27/18 06:19; Admin Dose 30 MG; Start 08/21/18 at 06:00 Piperacillin Sod/ Tazobactam Sod 100 ml @ 200 mls/hr Q8 IVPB Last administered on 08/27/18 06:19; Admin Dose 200 MLS/HR; Start 08/22/18 at 22:00 Enoxaparin Sodium (Lovenox) 50 mg DAILY SC Last administered on 08/27/18 08:18; Admin Dose 50 MG; Start 08/24/18 at 09:00 Metoprolol Tartrate (Lopressor) 25 mg BID PO Last administered on 08/26/18 07:51; Admin Dose 25 MG; Start 08/23/18 at 21:00 Fentanyl 100 ml @ 2.5 mls/hr TITRATE IV Last administered on 08/26/18at 09:36; Admin Dose 2.5 MLS/HR; Start 08/26/18 at 09:00 Vancomycin HCl (Vanco Iv Per Pharmacy) VANCOMYCIN PER PHARMACY PER PROTOCOL XX ; Start 08/26/18 at 14:30 Vancomycin HCl 100 ml @ 100 mls/hr Q24H IVPB ; Start 08/27/18 at 16:00 SARANYA ROBLERO Aug 27, 2018 08:59
--- NOTE | 2018-08-27 09:36 | CONS ---
Consult Date/Type/Reason Admit Date/Time Jul 29, 2018 at 06:16 Initial Consult Date 08/15/18 Type of Consult Pulmonary Requesting Provider: SANDI MURDOCK NP Date/Time of Note DATE: 08/27/18 TIME: 09:35 Subjective More alert today, opens eyes, not following commands. Objective Vital Signs Date Temp Pulse Resp B/P (MAP) Pulse Ox O2 O2 Flow FiO2 Time Delivery Rate 08/27/18 60 16 83/47 (59) 99 08:45 08/27/18 30 08:00 08/27/18 98.5 Mechanical 08:00 Ventilator Intake and Output 08/26/18 08/26/18 08/27/18 1515:00 23:00 07:00 IntakeIntake Total 285.226 ml 632.112 ml 567.254 ml OutputOutput Total 1540 ml 205 ml 200 ml BalanceBalance -1254.774 ml 427.112 ml 367.254 ml Exam GENERAL: Elderly appearing lady orally intubated on mechanical ventilation VITAL SIGNS: per chart NECK: Supple. No JVD or lymphadenopathy. CARDIAC EXAM: S1, S2. No added sounds or murmurs. CHEST: Diminished air entry right side greater than left ABDOMEN: Soft, nontender. No guarding or rebound. EXTREMITIES: No cyanosis, clubbing or edema. NEUROLOGIC: Generalized weakness. No focal deficits Vent Setting Ventilator Support Mode: CPAP Fraction of Inspired Oxygen pe: 30 Positive End Expiratory Pressu: 5.0 Results/Medications Result Diagram: 08/27/18 0400 08/27/18 0400 Results 24 hrs Laboratory Tests Test 08/26/18 12:43 08/26/18 12:55 08/26/18 14:20 08/26/18 16:09 Blood Gas Blood arterial Specimen Source Arterial Blood 08/26/2018 12:40 Date Drawn :37 PM Arterial Blood 7.376 pH (Temp corrected) Arterial Blood 23.6 L pCO2 (Temp correct) Arterial Blood 113.9 H pO2 (Temp corrected) Arterial Blood 13.5 L HCO3 Arterial Blood -10.2 L Base Excess Arterial Blood 98.0 Oxygen Saturatio n Quinten Test ACCEPTAB Arterial Blood Right Radial Gas Puncture Site Arterial 0 Blood Carboxyhem oglobin Arterial Blood 0.2 Methemoglobin Blood Gas A-a O2 72.3 H Differential Oxyhemoglobin 97.8 Percent Blood Gas 37.0 Temperature Blood Gas Actual 22 Respiration Rate Blood Gas VENT - CPAP Modality FiO2 30.0 Blood Gas Low 5.0 PEEP Setting Blood Gas 10 Pressure Support Blood Gas Theodora Notified Whom Blood Gas 08/26/2018 12:56 Notified Time :03 PM Bedside Glucose 102 126 Urine Color YELLOW Urine Clarity SLIGHTLY CLOUDY A Urine pH 5.0 Urine Specific 1.010 [place] Urine Ketones NEGATIVE Urine Nitrite NEGATIVE Urine Bilirubin NEGATIVE Urine NEGATIVE Urobilinogen Urine Leukocyte NEGATIVE Esterase Urine 166 H Microscopic RBC Urine 13 H Microscopic WBC Urine Bacteria FEW A Urine Hemoglobin 3+ H Urine Random 22.56 Creatinine Urine Random 109 H Sodium Urine Glucose NEGATIVE Urine Total 41.0 H Protein Test 08/26/18 20:43 08/27/18 01:38 08/27/18 04:00 08/27/18 04:34 Bedside Glucose 118 148 124 White Blood 17.0 H Count Red Blood Count 3.06 L Hemoglobin 8.5 L Hematocrit 26.5 L Mean Corpuscular 86.6 Volume Mean Corpuscular 27.8 L Hemoglobin Mean Corpuscular 32.1 Hemoglobin Nellie nt Red Cell 17.4 H Distribution Width Platelet Count 535 H Mean Platelet 10.4 Volume Immature 4.900 H Granulocytes % Neutrophils % 64.6 Lymphocytes % 10.7 L Monocytes % 13.8 H Eosinophils % 5.4 Basophils % 0.6 Nucleated Red 6.1 H Blood Cells % Immature 0.830 H Granulocytes # Neutrophils # 11.0 H Lymphocytes # 1.8 Monocytes # 2.3 H Eosinophils # 0.9 H Basophils # 0.1 Nucleated Red 1.0 H Blood Cells # Sodium Level 143 Potassium Level 3.4 L Chloride Level 116 H Carbon Dioxide 16 L Level Anion Gap 11 Blood Urea 50 H Nitrogen Creatinine 2.14 H Est Glomerular 23 L Filtrat Rate mL/min Glucose Level 122 Calcium Level 8.7 Phosphorus Level 4.2 Magnesium Level 2.5 Test 08/27/18 07:00 08/27/18 08:26 Blood Gas Blood arterial Specimen Source Arterial Blood 08/27/2018 8:03:0 Date Drawn 8 AM Arterial Blood 7.397 pH (Temp corrected) Arterial Blood 23.5 L pCO2 (Temp correct) Arterial Blood 108.2 H pO2 (Temp corrected) Arterial Blood 14.1 L HCO3 Arterial Blood -9.3 L Base Excess Arterial Blood 98.1 H Oxygen Saturatio n Quinten Test ACCEPTAB Arterial Blood Right Radial Gas Puncture Site Arterial 0 Blood Carboxyhem oglobin Arterial Blood 0.2 Methemoglobin Blood Gas A-a O2 78.1 H Differential Oxyhemoglobin 97.9 Percent Blood Gas 37.0 Temperature Blood Gas 16.0 Respiration Rate Blood Gas Actual 19 Respiration Rate Blood Gas VENT - AC Modality FiO2 30.0 Blood Gas Tidal 45.0 Volume Blood Gas Low 5.0 PEEP Setting Blood Gas TM Notified Whom Blood Gas 08/27/2018 8:33:4 Notified Time 8 AM Bedside Glucose 121 Medications Current Medications IV Flush (NS 3 ml) 3 ml PER PROTOCOL IV Last administered on 08/05/18 09:07; Admin Dose 3 ML; Start 07/29/18 at 06:30 Ondansetron HCl (Zofran Inj) 4 mg Q6H PRN IV NAUSEA/VOMITING Last administered on 08/18/18 18:34; Admin Dose 4 MG; Start 07/29/18 at 06:30 Acetaminophen/ Hydrocodone Bitart ([place] (5/325)) 1 tab Q6H PRN PO .MOD PAIN 4- 6 Last administered on 08/19/18 03:42; Admin Dose 1 TAB; Start 07/29/18 at 06:30 Diagnostic Test (Pha) (Accu-Chek) 1 ea 02 XX Last administered on 08/27/18 01:38; Admin Dose 1 EA; Start 07/30/18 at 02:00 Acetaminophen (Tylenol Tab) 650 mg Q6H PRN PO .PAIN 1-3 OR TEMP Last administered on 08/17/18 05:46; Admin Dose 650 MG; Start 07/29/18 at 07:00 Eye Lubricant (Akwa Oint) 1 applic Q1H PRN BOTH EYES DRY EYES; Start 07/29/18 at 08:00 Aspirin (Halfprin) 81 mg DAILY PO Last administered on 08/27/18 08:16; Admin Dose 81 MG; Start 07/29/18 at 09:00 Atorvastatin Calcium (Lipitor) 20 mg QHS PO Last administered on 08/26/18 20:49; Admin Dose 20 MG; Start 07/29/18 at 21:00 Clopidogrel Bisulfate (plaVIX) 75 mg DAILY PO Last administered on 08/27/18 08:16; Admin Dose 75 MG; Start 07/29/18 at 09:00 Cyanocobalamin (Vitamin B12) 50 mcg DAILY PO Last administered on 08/27/18at 08:18; Admin Dose 50 MCG; Start 07/29/18 at 09:00 Levothyroxine Sodium (Synthroid) 50 mcg BEFORE BREAKFAST PO Last administered on 08/27/18at 06:19; Admin Dose 50 MCG; Start 07/29/18 at 07:00 Polyethyl Glycol/ Propylene Glycol (Systane 0.3-0.4% Eye Drops) 1 drop Q4H PRN BOTH EYES DRY EYES; Start 07/29/18 at 08:00 Albuterol (Ventolin Hfa) 2 puff Q4H RESP THERAPY PRN INH WHEEZING; Start 07/29/18 at 09:00 Miscellaneous Information 1 ea NOTE XX ; Start 07/29/18 at 07:00 Glucose (Glutose) 15 gm Q15M PRN PO DECREASED GLUCOSE; Start 07/29/18 at 07:00 Glucose (Glutose) 22.5 gm Q15M PRN PO DECREASED GLUCOSE; Start 07/29/18 at 07:00 Dextrose (D50w Syringe) 25 ml Q15M PRN IV DECREASED GLUCOSE Last administered on 08/24/18at 07:58; Admin Dose 25 ML; Start 07/29/18 at 07:00 Dextrose (D50w Syringe) 50 ml Q15M PRN IV DECREASED GLUCOSE; Start 07/29/18 at 07:00 Glucagon (Glucagen) 1 mg Q15M PRN IM DECREASED GLUCOSE; Start 07/29/18 at 07:00 Glucose (Glutose) 15 gm Q15M PRN BUCCAL DECREASED GLUCOSE; Start 07/29/18 at 07:00 Alprazolam (Xanax) 0.25 mg Q8H PRN PO ANXIETY Last administered on 08/19/18at 00:10; Admin Dose 0.25 MG; Start 07/29/18 at 12:30 Polyethylene Glycol (Miralax) 17 gm DAILY PO Last administered on 08/27/18at 08:17; Admin Dose 17 GM; Start 07/29/18 at 12:30 Docusate Sodium (Colace) 100 mg BID PO Last administered on 08/26/18at 20:49; Admin Dose 100 MG; Start 07/31/18 at 21:00 Magnesium Hydroxide (Milk Of Mag) 30 ml Q12H PRN PO STOMACH UPSET/CRAMPING Last administered on 07/31/18 21:28; Admin Dose 30 ML; Start 07/31/18 at 20:00 Al Hydrox/Mg Hydrox/Simethicone (Mag-Al Plus) 30 ml Q6H PRN PO GASTROINTESTINAL UPSET Last administered on 08/16/18 23:45; Admin Dose 30 ML; Start 08/03/18 at 17:30 Insulin Glargine (Lantus) 8 units DAILY@2000 SC Last administered on 08/26/18 20:51; Admin Dose 8 UNITS; Start 08/09/18 at 20:00 Albuterol/ Ipratropium (Duoneb) 3 ml Q2H RESP THERAPY PRN HHN sob Last administered on 08/19/18 03:28; Admin Dose 3 ML; Start 08/14/18 at 12:00 Diltiazem HCl (Cardizem Iv) 5 mg Q4 PRN IV HR>70 for Cardiac CTA Last administered on 08/19/18 03:50; Admin Dose 5 MG; Start 08/17/18 at 11:30 Lorazepam (Ativan) 1 mg Q8H PRN IV ANXIETY Last administered on 08/20/18 12:39; Admin Dose 1 MG; Start 08/17/18 at 15:30 Epoetin Glenn-epbx (Retacrit (Non-Esrd)) 20,000 unit TuThSa@1700 SC Last administered on 08/25/18 17:33; Admin Dose 20,000 UNIT; Start 08/18/18 at 17:00 Simethicone (Mylicon) 160 mg Q6H PRN PO DISTENSION/GAS/BLOATING Last administered on 08/18/18 08:49; Admin Dose 160 MG; Start 08/17/18 at 20:00 Propofol 100 ml @ 1.568 mls/ hr Q12H IV Last administered on 08/27/18 08:28; Admin Dose 3.136 MLS/HR; Start 08/19/18 at 09:30 Norepinephrine 250 ml @ 1.875 mls/ hr TITRATE IV Last administered on 08/20/18 08:57; Admin Dose 9.375 MLS/HR; Start 08/19/18 at 10:30 Insulin Aspart (Novolog Insulin Pen) NOVOLOG *MODERATE* ALGORI... Q4 SC Last administered on 08/27/18at 01:40; Admin Dose 2 UNIT; Start 08/20/18 at 01:00 Lansoprazole (Prevacid) 30 mg DAILY@06 NGT Last administered on 08/27/18at 06:19; Admin Dose 30 MG; Start 08/21/18 at 06:00 Piperacillin Sod/ Tazobactam Sod 100 ml @ 200 mls/hr Q8 IVPB Last administered on 08/27/18at 06:19; Admin Dose 200 MLS/HR; Start 08/22/18 at 22:00 Enoxaparin Sodium (Lovenox) 50 mg DAILY SC Last administered on 08/27/18at 08:18; Admin Dose 50 MG; Start 08/24/18 at 09:00 Metoprolol Tartrate (Lopressor) 25 mg BID PO Last administered on 08/26/18at 07:51; Admin Dose 25 MG; Start 08/23/18 at 21:00 Fentanyl 100 ml @ 2.5 mls/hr TITRATE IV Last administered on 08/26/18at 09:36; Admin Dose 2.5 MLS/HR; Start 08/26/18 at 09:00 Vancomycin HCl (Vanco Iv Per Pharmacy) VANCOMYCIN PER PHARMACY PER PROTOCOL XX ; Start 08/26/18 at 14:30 Vancomycin HCl 100 ml @ 100 mls/hr Q24H IVPB ; Start 08/27/18 at 16:00 Assessment/Plan Hospital Course (Demo Recall) Assessment 1. Status post cardiopulmonary arrest 2. Encephalopathy possibly toxic metabolic 3. Status post septic shock, off vasopressors at present. 4. Recurrent right pleural effusion probably metastatic in nature 5. Metastatic uterine cancer Plan 1. Continue mechanical ventilation, CPAP trial this morning. 2. Right Pleurx catheter, vacuum drainage daily 3. Decrease vasopressors as tolerated, titrate to keep map greater than 65. 4. Overall prognosis very poor patient may not be able to be liberated from mechanical ventilation. Appreciate palliative care recommendations. Family wish to continue current level of care but do not want long-term tracheostomy and PEG tube. Critical care time 40 minutes. Critical care time 40 minutes FARHAN VALENTINO MD, [facility] Aug 27, 2018 09:36
--- NOTE | 2018-08-27 10:46 | CONS ---
Assessment/Plan Assessment/Plan Hospital Course (Demo Recall) IMP: 1.Preop-neg trop multiple times. NL EF by echo. Lexiscan with possible distal anterior ischemia. NL EF. Now with positive troponin's s/p cardiopulmonary arrest 2.abnl ecg-ECG today with inferior ST elevation but with normal concavity and Q's isolated to lead 3 . NL EF by echo this admit. multiple negative troponins and no chest pain prior to arrest 3.Uterine cancer 4.DM 5.Hoth-resolved off of pressors 6.HL 7.PLeural effusion-L sided large, malignant by cytology s/p pleur x catheter 8. Resp failure s/p intubation 9. NSTEMI-likely type 2 demand infarct with now downtrended cardiac enzymes Recc -Remains in ICU s/p cardiopulmonary arrest -Continue asa/plavix -Continue BB as tolerated -trend cardiac enzymes -Continue SQ lovenox s/p pleur-x catheter -ongoing renal f/u -follow BS closely -weaning vent as tolerated -if patient is to have debulking surgery will require LHC prior to surgery given now NSTEMI and abnl stress test -ongoing family discussion about direction of care Consultation Date/Type/Reason Admit Date/Time Jul 29, 2018 at 06:16 Initial Consult Date 08/10/18 Type of Consult Cardiology Reason for Consultation nstemi Requesting Provider: SANDI MURDOCK NP Date/Time of Note DATE: 08/27/18 TIME: 10:36 Exam/Review of Systems Vital Signs Vitals Vital Signs Date Temp Pulse Resp B/P (MAP) Pulse Ox O2 O2 Flow FiO2 Time Delivery Rate 08/27/18 82 24 118/55 99 09:45 (76) 08/27/18 Mechanical 09:00 Ventilator 08/27/18 30 08:00 08/27/18 98.5 08:00 Intake and Output 08/26/18 08/26/18 08/27/18 1515:00 23:00 07:00 IntakeIntake Total 285.226 ml 632.112 ml 567.254 ml OutputOutput Total 1540 ml 205 ml 200 ml BalanceBalance -1254.774 ml 427.112 ml 367.254 ml Exam Exam Review of Systems: CONSTITUTIONAL: No fevers, chills. PULMONARY: intubated CARDIOVASCULAR: No chest pain/palpitations GASTROINTESTINAL: No nausea/vomiting. GENITOURINARY: No hematuria/dysuria. MUSCULOSKELETAL: No myagias/arthalgias. PSYCHIATRIC: The patient denies depression. NEUROLOGIC: sedated Constitutional: other (sedated but agitated) Psych: no complaints Head: normocephalic ENMT: mucosa pink and moist, intubated Neck: supple, jvd (9 cm water) Respiratory: diminished breath sounds Cardiovascular: regular rate and rhythm Gastrointestinal: soft, non-tender Musculoskeletal: muscle tone (normal) Extremities: edema (none) Neurological: other (No focal deficits) Labs Result Diagram: 08/27/180 08/27/180 Results 24hrs Laboratory Tests Test 08/26/18 12:43 08/26/18 12:55 08/26/18 14:20 08/26/18 16:09 Blood Gas Blood arterial Specimen Source Arterial Blood 08/26/2018 12:40 Date Drawn :37 PM Arterial Blood 7.376 pH (Temp corrected) Arterial Blood 23.6 L pCO2 (Temp correct) Arterial Blood 113.9 H pO2 (Temp corrected) Arterial Blood 13.5 L HCO3 Arterial Blood -10.2 L Base Excess Arterial Blood 98.0 Oxygen Saturatio n Quinten Test ACCEPTAB Arterial Blood Right Radial Gas Puncture Site Arterial 0 Blood Carboxyhem oglobin Arterial Blood 0.2 Methemoglobin Blood Gas A-a O2 72.3 H Differential Oxyhemoglobin 97.8 Percent Blood Gas 37.0 Temperature Blood Gas Actual 22 Respiration Rate Blood Gas VENT - CPAP Modality FiO2 30.0 Blood Gas Low 5.0 PEEP Setting Blood Gas 10 Pressure Support Blood Gas Theodora Notified Whom Blood Gas 08/26/2018 12:56 Notified Time :03 PM Bedside Glucose 102 126 Urine Color YELLOW Urine Clarity SLIGHTLY CLOUDY A Urine pH 5.0 Urine Specific 1.010 [place] Urine Ketones NEGATIVE Urine Nitrite NEGATIVE Urine Bilirubin NEGATIVE Urine NEGATIVE Urobilinogen Urine Leukocyte NEGATIVE Esterase Urine 166 H Microscopic RBC Urine 13 H Microscopic WBC Urine Bacteria FEW A Urine Hemoglobin 3+ H Urine Random 22.56 Creatinine Urine Random 109 H Sodium Urine Glucose NEGATIVE Urine Total 41.0 H Protein Test 08/26/18 20:43 08/27/18 01:38 08/27/18 04:00 08/27/18 04:34 Bedside Glucose 118 148 124 White Blood 17.0 H Count Red Blood Count 3.06 L Hemoglobin 8.5 L Hematocrit 26.5 L Mean Corpuscular 86.6 Volume Mean Corpuscular 27.8 L Hemoglobin Mean Corpuscular 32.1 Hemoglobin Nellie nt Red Cell 17.4 H Distribution Width Platelet Count 535 H Mean Platelet 10.4 Volume Immature 4.900 H Granulocytes % Neutrophils % 64.6 Lymphocytes % 10.7 L Monocytes % 13.8 H Eosinophils % 5.4 Basophils % 0.6 Nucleated Red 6.1 H Blood Cells % Immature 0.830 H Granulocytes # Neutrophils # 11.0 H Lymphocytes # 1.8 Monocytes # 2.3 H Eosinophils # 0.9 H Basophils # 0.1 Nucleated Red 1.0 H Blood Cells # Sodium Level 143 Potassium Level 3.4 L Chloride Level 116 H Carbon Dioxide 16 L Level Anion Gap 11 Blood Urea 50 H Nitrogen Creatinine 2.14 H Est Glomerular 23 L Filtrat Rate mL/min Glucose Level 122 Calcium Level 8.7 Phosphorus Level 4.2 Magnesium Level 2.5 Test 08/27/18 07:00 08/27/18 08:26 Blood Gas Blood arterial Specimen Source Arterial Blood 08/27/2018 8:03:0 Date Drawn 8 AM Arterial Blood 7.397 pH (Temp corrected) Arterial Blood 23.5 L pCO2 (Temp correct) Arterial Blood 108.2 H pO2 (Temp corrected) Arterial Blood 14.1 L HCO3 Arterial Blood -9.3 L Base Excess Arterial Blood 98.1 H Oxygen Saturatio n Quinten Test ACCEPTAB Arterial Blood Right Radial Gas Puncture Site Arterial 0 Blood Carboxyhem oglobin Arterial Blood 0.2 Methemoglobin Blood Gas A-a O2 78.1 H Differential Oxyhemoglobin 97.9 Percent Blood Gas 37.0 Temperature Blood Gas 16.0 Respiration Rate Blood Gas Actual 19 Respiration Rate Blood Gas VENT - AC Modality FiO2 30.0 Blood Gas Tidal 45.0 Volume Blood Gas Low 5.0 PEEP Setting Blood Gas TM Notified Whom Blood Gas 08/27/2018 8:33:4 Notified Time 8 AM Bedside Glucose 121 Medications Medications Current Medications IV Flush (NS 3 ml) 3 ml PER PROTOCOL IV Last administered on 08/05/18at 09:07; Admin Dose 3 ML; Start 07/29/18 at 06:30 Ondansetron HCl (Zofran Inj) 4 mg Q6H PRN IV NAUSEA/VOMITING Last administered on 08/18/18at 18:34; Admin Dose 4 MG; Start 07/29/18 at 06:30 Acetaminophen/ Hydrocodone Bitart ([place] (5/325)) 1 tab Q6H PRN PO .MOD PAIN 4- 6 Last administered on 08/19/18 03:42; Admin Dose 1 TAB; Start 07/29/18 at 06:30 Diagnostic Test (Pha) (Accu-Chek) 1 ea 02 XX Last administered on 08/27/18 01:38; Admin Dose 1 EA; Start 07/30/18 at 02:00 Acetaminophen (Tylenol Tab) 650 mg Q6H PRN PO .PAIN 1-3 OR TEMP Last administered on 08/17/18 05:46; Admin Dose 650 MG; Start 07/29/18 at 07:00 Eye Lubricant (Akwa Oint) 1 applic Q1H PRN BOTH EYES DRY EYES; Start 07/29/18 at 08:00 Aspirin (Halfprin) 81 mg DAILY PO Last administered on 08/27/18 08:16; Admin Dose 81 MG; Start 07/29/18 at 09:00 Atorvastatin Calcium (Lipitor) 20 mg QHS PO Last administered on 08/26/18 20:49; Admin Dose 20 MG; Start 07/29/18 at 21:00 Clopidogrel Bisulfate (plaVIX) 75 mg DAILY PO Last administered on 08/27/18 08:16; Admin Dose 75 MG; Start 07/29/18 at 09:00 Cyanocobalamin (Vitamin B12) 50 mcg DAILY PO Last administered on 08/27/18 08:18; Admin Dose 50 MCG; Start 07/29/18 at 09:00 Levothyroxine Sodium (Synthroid) 50 mcg BEFORE BREAKFAST PO Last administered on 08/27/18 06:19; Admin Dose 50 MCG; Start 07/29/18 at 07:00 Polyethyl Glycol/ Propylene Glycol (Systane 0.3-0.4% Eye Drops) 1 drop Q4H PRN BOTH EYES DRY EYES; Start 07/29/18 at 08:00 Albuterol (Ventolin Hfa) 2 puff Q4H RESP THERAPY PRN INH WHEEZING; Start 07/29/18 at 09:00 Miscellaneous Information 1 ea NOTE XX ; Start 07/29/18 at 07:00 Glucose (Glutose) 15 gm Q15M PRN PO DECREASED GLUCOSE; Start 07/29/18 at 07:00 Glucose (Glutose) 22.5 gm Q15M PRN PO DECREASED GLUCOSE; Start 07/29/18 at 07:00 Dextrose (D50w Syringe) 25 ml Q15M PRN IV DECREASED GLUCOSE Last administered on 08/24/18 07:58; Admin Dose 25 ML; Start 07/29/18 at 07:00 Dextrose (D50w Syringe) 50 ml Q15M PRN IV DECREASED GLUCOSE; Start 07/29/18 at 07:00 Glucagon (Glucagen) 1 mg Q15M PRN IM DECREASED GLUCOSE; Start 07/29/18 at 07:00 Glucose (Glutose) 15 gm Q15M PRN BUCCAL DECREASED GLUCOSE; Start 07/29/18 at 07:00 Alprazolam (Xanax) 0.25 mg Q8H PRN PO ANXIETY Last administered on 08/19/18at 00:10; Admin Dose 0.25 MG; Start 07/29/18 at 12:30 Polyethylene Glycol (Miralax) 17 gm DAILY PO Last administered on 08/27/18at 08:17; Admin Dose 17 GM; Start 07/29/18 at 12:30 Docusate Sodium (Colace) 100 mg BID PO Last administered on 08/26/18 20:49; Admin Dose 100 MG; Start 07/31/18 at 21:00 Magnesium Hydroxide (Milk Of Mag) 30 ml Q12H PRN PO STOMACH UPSET/CRAMPING Last administered on 07/31/18 21:28; Admin Dose 30 ML; Start 07/31/18 at 20:00 Al Hydrox/Mg Hydrox/Simethicone (Mag-Al Plus) 30 ml Q6H PRN PO GASTROINTESTINAL UPSET Last administered on 08/16/18 23:45; Admin Dose 30 ML; Start 08/03/18 at 17:30 Insulin Glargine (Lantus) 8 units DAILY@2000 SC Last administered on 08/26/18 20:51; Admin Dose 8 UNITS; Start 08/09/18 at 20:00 Albuterol/ Ipratropium (Duoneb) 3 ml Q2H RESP THERAPY PRN HHN sob Last administered on 08/19/18 03:28; Admin Dose 3 ML; Start 08/14/18 at 12:00 Diltiazem HCl (Cardizem Iv) 5 mg Q4 PRN IV HR>70 for Cardiac CTA Last administered on 08/19/18 03:50; Admin Dose 5 MG; Start 08/17/18 at 11:30 Lorazepam (Ativan) 1 mg Q8H PRN IV ANXIETY Last administered on 08/20/18 12:39; Admin Dose 1 MG; Start 08/17/18 at 15:30 Epoetin Glenn-epbx (Retacrit (Non-Esrd)) 20,000 unit TuThSa@1700 SC Last administered on 08/25/18 17:33; Admin Dose 20,000 UNIT; Start 08/18/18 at 17:00 Simethicone (Mylicon) 160 mg Q6H PRN PO DISTENSION/GAS/BLOATING Last administered on 08/18/18 08:49; Admin Dose 160 MG; Start 08/17/18 at 20:00 Propofol 100 ml @ 1.568 mls/ hr Q12H IV Last administered on 08/27/18 08:28; Admin Dose 3.136 MLS/HR; Start 08/19/18 at 09:30 Norepinephrine 250 ml @ 1.875 mls/ hr TITRATE IV Last administered on 08/20/18 08:57; Admin Dose 9.375 MLS/HR; Start 08/19/18 at 10:30 Insulin Aspart (Novolog Insulin Pen) NOVOLOG *MODERATE* ALGORI... Q4 SC Last administered on 08/27/18 01:40; Admin Dose 2 UNIT; Start 08/20/18 at 01:00 Lansoprazole (Prevacid) 30 mg DAILY@06 NGT Last administered on 08/27/18 06:19; Admin Dose 30 MG; Start 08/21/18 at 06:00 Piperacillin Sod/ Tazobactam Sod 100 ml @ 200 mls/hr Q8 IVPB Last administered on 08/27/18 06:19; Admin Dose 200 MLS/HR; Start 08/22/18 at 22:00 Enoxaparin Sodium (Lovenox) 50 mg DAILY SC Last administered on 08/27/18 08:18; Admin Dose 50 MG; Start 08/24/18 at 09:00 Metoprolol Tartrate (Lopressor) 25 mg BID PO Last administered on 6/30/19at 07:51; Admin Dose 25 MG; Start 08/23/18 at 21:00 Fentanyl 100 ml @ 2.5 mls/hr TITRATE IV Last administered on 08/26/18at 09:36; Admin Dose 2.5 MLS/HR; Start 08/26/18 at 09:00 Vancomycin HCl (Vanco Iv Per Pharmacy) VANCOMYCIN PER PHARMACY PER PROTOCOL XX ; Start 08/26/18 at 14:30 Vancomycin HCl 100 ml @ 100 mls/hr Q24H IVPB ; Start 08/27/18 at 16:00 TAN LIRIANO Aug 27, 2018 10:46
--- NOTE | 2018-08-27 11:06 | CONS ---
Assessment/Plan Assessment/Plan Assessment/Plan (Recall) 68 F c/ reported Hx of prior stroke and other comorbidities, who initially presented for evaluation of unexplained weight loss and other Sx. She was found to have a uterine cancer w/ liver met..but is reportedly not a candidate for chemotherapy. Then on 08/19, she suffered a cardiopulmonary arrest..and was refractorily encephalopathic, for which neurology is consulted. TTP was deferred.. Her neurological examination has shown steady improvement over time, which is reassuring.. She was also noted by staff to have ? abnormal movements concerning for seizure.. EEG was, though, without epileptiform activity. Head CT on 08/21 is unrevealing. P: Continue to defer AED Tx for now Hold propofol and other sedatives as able Continued medical management and supportive care per primary Will sign off for now; please call w/ ?s. Consultation Date/Type/Reason Admit Date/Time Jul 29, 2018 at 06:16 Type of Consult Neurology Reason for Consultation ams, ?seizure Requesting Provider: SANDI MURDOCK NP Date/Time of Note DATE: 08/27/18 TIME: 11:02 24 HR Interval Summary Free Text/Dictation Continues acute care Exam/Review of Systems Exam Vitals Vital Signs Date Temp Pulse Resp B/P (MAP) Pulse Ox O2 O2 Flow FiO2 Time Delivery Rate 08/27/18 82 24 118/55 99 09:45 (76) 08/27/18 Mechanical 09:00 Ventilator 08/27/18 30 08:00 08/27/18 98.5 08:00 Intake and Output 08/26/18 08/26/18 08/27/18 1515:00 23:00 07:00 IntakeIntake Total 285.226 ml 632.112 ml 567.254 ml OutputOutput Total 1540 ml 205 ml 200 ml BalanceBalance -1254.774 ml 427.112 ml 367.254 ml Exam PE: Gen Appearance: No Apparent Distress HEENT: Intubated Cardiovascular: Regular rate Abdomen: Soft Extremities: Dry NE: The patient was alert, able to move her limbs spontaneously.. Cranial nerve examination was limited by mental status. Left pupil was effaced; right pupil was reactive to light. There was no afferent pupillary defect. Funduscopic examination was limited. Face was grossly symmetric, w/ present corneal and cough reflexes. Tone was normal. Muscle bulk was normal. I did not see fasciculations. Limbs wer e grossly symmetric Coordination and gait testing was limited by mental status. Arm and leg reflexes were symmetric. Valencia's sign was absent. Plantar responses were flexor. Results Result Diagram: 08/27/18 0400 08/27/18 0400 Results 24hrs Laboratory Tests Test 08/26/18 12:43 08/26/18 12:55 08/26/18 14:20 08/26/18 16:09 Blood Gas Blood arterial Specimen Source Arterial Blood 08/26/2018 12:40 Date Drawn :37 PM Arterial Blood 7.376 pH (Temp corrected) Arterial Blood 23.6 L pCO2 (Temp correct) Arterial Blood 113.9 H pO2 (Temp corrected) Arterial Blood 13.5 L HCO3 Arterial Blood -10.2 L Base Excess Arterial Blood 98.0 Oxygen Saturatio n Quinten Test ACCEPTAB Arterial Blood Right Radial Gas Puncture Site Arterial 0 Blood Carboxyhem oglobin Arterial Blood 0.2 Methemoglobin Blood Gas A-a O2 72.3 H Differential Oxyhemoglobin 97.8 Percent Blood Gas 37.0 Temperature Blood Gas Actual 22 Respiration Rate Blood Gas VENT - CPAP Modality FiO2 30.0 Blood Gas Low 5.0 PEEP Setting Blood Gas 10 Pressure Support Blood Gas M.D. Notified Whom Blood Gas 08/26/2018 12:56 Notified Time :03 PM Bedside Glucose 102 126 Urine Color YELLOW Urine Clarity SLIGHTLY CLOUDY A Urine pH 5.0 Urine Specific 1.010 [place] Urine Ketones NEGATIVE Urine Nitrite NEGATIVE Urine Bilirubin NEGATIVE Urine NEGATIVE Urobilinogen Urine Leukocyte NEGATIVE Esterase Urine 166 H Microscopic RBC Urine 13 H Microscopic WBC Urine Bacteria FEW A Urine Hemoglobin 3+ H Urine Random 22.56 Creatinine Urine Random 109 H Sodium Urine Glucose NEGATIVE Urine Total 41.0 H Protein Test 08/26/18 20:43 08/27/18 01:38 08/27/18 04:00 08/27/18 04:34 Bedside Glucose 118 148 124 White Blood 17.0 H Count Red Blood Count 3.06 L Hemoglobin 8.5 L Hematocrit 26.5 L Mean Corpuscular 86.6 Volume Mean Corpuscular 27.8 L Hemoglobin Mean Corpuscular 32.1 Hemoglobin Nellie nt Red Cell 17.4 H Distribution Width Platelet Count 535 H Mean Platelet 10.4 Volume Immature 4.900 H Granulocytes % Neutrophils % 64.6 Lymphocytes % 10.7 L Monocytes % 13.8 H Eosinophils % 5.4 Basophils % 0.6 Nucleated Red 6.1 H Blood Cells % Immature 0.830 H Granulocytes # Neutrophils # 11.0 H Lymphocytes # 1.8 Monocytes # 2.3 H Eosinophils # 0.9 H Basophils # 0.1 Nucleated Red 1.0 H Blood Cells # Sodium Level 143 Potassium Level 3.4 L Chloride Level 116 H Carbon Dioxide 16 L Level Anion Gap 11 Blood Urea 50 H Nitrogen Creatinine 2.14 H Est Glomerular 23 L Filtrat Rate mL/min Glucose Level 122 Calcium Level 8.7 Phosphorus Level 4.2 Magnesium Level 2.5 Test 08/27/18 07:00 08/27/18 08:26 Blood Gas Blood arterial Specimen Source Arterial Blood 08/27/2018 8:03:0 Date Drawn 8 AM Arterial Blood 7.397 pH (Temp corrected) Arterial Blood 23.5 L pCO2 (Temp correct) Arterial Blood 108.2 H pO2 (Temp corrected) Arterial Blood 14.1 L HCO3 Arterial Blood -9.3 L Base Excess Arterial Blood 98.1 H Oxygen Saturatio n Quinten Test ACCEPTAB Arterial Blood Right Radial Gas Puncture Site Arterial 0 Blood Carboxyhem oglobin Arterial Blood 0.2 Methemoglobin Blood Gas A-a O2 78.1 H Differential Oxyhemoglobin 97.9 Percent Blood Gas 37.0 Temperature Blood Gas 16.0 Respiration Rate Blood Gas Actual 19 Respiration Rate Blood Gas VENT - AC Modality FiO2 30.0 Blood Gas Tidal 45.0 Volume Blood Gas Low 5.0 PEEP Setting Blood Gas TM Notified Whom Blood Gas 08/27/2018 8:33:4 Notified Time 8 AM Bedside Glucose 121 Medications Medication Current Medications IV Flush (NS 3 ml) 3 ml PER PROTOCOL IV Last administered on 08/05/18 09:07; Admin Dose 3 ML; Start 07/29/18 at 06:30 Ondansetron HCl (Zofran Inj) 4 mg Q6H PRN IV NAUSEA/VOMITING Last administered on 08/18/18 18:34; Admin Dose 4 MG; Start 07/29/18 at 06:30 Acetaminophen/ Hydrocodone Bitart ([place] (5/325)) 1 tab Q6H PRN PO .MOD PAIN 4- 6 Last administered on 08/19/18 03:42; Admin Dose 1 TAB; Start 07/29/18 at 06:30 Diagnostic Test (Pha) (Accu-Chek) 1 ea 02 XX Last administered on 08/27/18at 01:38; Admin Dose 1 EA; Start 07/30/18 at 02:00 Acetaminophen (Tylenol Tab) 650 mg Q6H PRN PO .PAIN 1-3 OR TEMP Last administered on 08/17/18at 05:46; Admin Dose 650 MG; Start 07/29/18 at 07:00 Eye Lubricant (Akwa Oint) 1 applic Q1H PRN BOTH EYES DRY EYES; Start 07/29/18 at 08:00 Aspirin (Halfprin) 81 mg DAILY PO Last administered on 08/27/18 08:16; Admin Dose 81 MG; Start 07/29/18 at 09:00 Atorvastatin Calcium (Lipitor) 20 mg QHS PO Last administered on 08/26/18at 20:49; Admin Dose 20 MG; Start 07/29/18 at 21:00 Clopidogrel Bisulfate (plaVIX) 75 mg DAILY PO Last administered on 08/27/18at 0 8:16; Admin Dose 75 MG; Start 07/29/18 at 09:00 Cyanocobalamin (Vitamin B12) 50 mcg DAILY PO Last administered on 08/27/18 08:18; Admin Dose 50 MCG; Start 07/29/18 at 09:00 Levothyroxine Sodium (Synthroid) 50 mcg BEFORE BREAKFAST PO Last administered on 08/27/18 06:19; Admin Dose 50 MCG; Start 07/29/18 at 07:00 Polyethyl Glycol/ Propylene Glycol (Systane 0.3-0.4% Eye Drops) 1 drop Q4H PRN BOTH EYES DRY EYES; Start 07/29/18 at 08:00 Albuterol (Ventolin Hfa) 2 puff Q4H RESP THERAPY PRN INH WHEEZING; Start 07/29/18 at 09:00 Miscellaneous Information 1 ea NOTE XX ; Start 07/29/18 at 07:00 Glucose (Glutose) 15 gm Q15M PRN PO DECREASED GLUCOSE; Start 07/29/18 at 07:00 Glucose (Glutose) 22.5 gm Q15M PRN PO DECREASED GLUCOSE; Start 07/29/18 at 07:00 Dextrose (D50w Syringe) 25 ml Q15M PRN IV DECREASED GLUCOSE Last administered on 08/24/18at 07:58; Admin Dose 25 ML; Start 07/29/18 at 07:00 Dextrose (D50w Syringe) 50 ml Q15M PRN IV DECREASED GLUCOSE; Start 07/29/18 at 07:00 Glucagon (Glucagen) 1 mg Q15M PRN IM DECREASED GLUCOSE; Start 07/29/18 at 07:00 Glucose (Glutose) 15 gm Q15M PRN BUCCAL DECREASED GLUCOSE; Start 07/29/18 at 07:00 Alprazolam (Xanax) 0.25 mg Q8H PRN PO ANXIETY Last administered on 08/19/18at 00:10; Admin Dose 0.25 MG; Start 07/29/18 at 12:30 Polyethylene Glycol (Miralax) 17 gm DAILY PO Last administered on 08/27/18 08:17; Admin Dose 17 GM; Start 07/29/18 at 12:30 Docusate Sodium (Colace) 100 mg BID PO Last administered on 08/26/18 20:49; Admin Dose 100 MG; Start 07/31/18 at 21:00 Magnesium Hydroxide (Milk Of Mag) 30 ml Q12H PRN PO STOMACH UPSET/CRAMPING Last administered on 07/31/18 21:28; Admin Dose 30 ML; Start 07/31/18 at 20:00 Al Hydrox/Mg Hydrox/Simethicone (Mag-Al Plus) 30 ml Q6H PRN PO GASTROINTESTINAL UPSET Last administered on 08/16/18 23:45; Admin Dose 30 ML; Start 08/03/18 at 17:30 Insulin Glargine (Lantus) 8 units DAILY@2000 SC Last administered on 08/26/18 20:51; Admin Dose 8 UNITS; Start 08/09/18 at 20:00 Albuterol/ Ipratropium (Duoneb) 3 ml Q2H RESP THERAPY PRN HHN sob Last administered on 08/19/18 03:28; Admin Dose 3 ML; Start 08/14/18 at 12:00 Diltiazem HCl (Cardizem Iv) 5 mg Q4 PRN IV HR>70 for Cardiac CTA Last administered on 08/19/18 03:50; Admin Dose 5 MG; Start 08/17/18 at 11:30 Lorazepam (Ativan) 1 mg Q8H PRN IV ANXIETY Last administered on 08/20/18 12:39; Admin Dose 1 MG; Start 08/17/18 at 15:30 Epoetin Glenn-epbx (Retacrit (Non-Esrd)) 20,000 unit TuThSa@1700 SC Last administered on 08/25/18 17:33; Admin Dose 20,000 UNIT; Start 08/18/18 at 17:00 Simethicone (Mylicon) 160 mg Q6H PRN PO DISTENSION/GAS/BLOATING Last administered on 08/18/18 08:49; Admin Dose 160 MG; Start 08/17/18 at 20:00 Propofol 100 ml @ 1.568 mls/ hr Q12H IV Last administered on 08/27/18 08:28; Admin Dose 3.136 MLS/HR; Start 08/19/18 at 09:30 Norepinephrine 250 ml @ 1.875 mls/ hr TITRATE IV Last administered on 08/20/18 08:57; Admin Dose 9.375 MLS/HR; Start 08/19/18 at 10:30 Insulin Aspart (Novolog Insulin Pen) NOVOLOG *MODERATE* ALGORI... Q4 SC Last administered on 08/27/18 01:40; Admin Dose 2 UNIT; Start 08/20/18 at 01:00 Lansoprazole (Prevacid) 30 mg DAILY@06 NGT Last administered on 08/27/18 06:19; Admin Dose 30 MG; Start 08/21/18 at 06:00 Piperacillin Sod/ Tazobactam Sod 100 ml @ 200 mls/hr Q8 IVPB Last administered on 08/27/18 06:19; Admin Dose 200 MLS/HR; Start 08/22/18 at 22:00 Enoxaparin Sodium (Lovenox) 50 mg DAILY SC Last administered on 08/27/18 08:18; Admin Dose 50 MG; Start 08/24/18 at 09:00 Metoprolol Tartrate (Lopressor) 25 mg BID PO Last administered on 08/26/18 07:51; Admin Dose 25 MG; Start 08/23/18 at 21:00 Fentanyl 100 ml @ 2.5 mls/hr TITRATE IV Last administered on 08/26/18 09:36; Admin Dose 2.5 MLS/HR; Start 08/26/18 at 09:00 Vancomycin HCl (Vanco Iv Per Pharmacy) VANCOMYCIN PER PHARMACY PER PROTOCOL XX ; Start 08/26/18 at 14:30 Vancomycin HCl 100 ml @ 100 mls/hr Q24H IVPB ; Start 08/27/18 at 16:00 GABBY CARDOZA Aug 27, 2018 11:05
--- NOTE | 2018-08-27 11:20 | CONS ---
Consultation Date/Type/Reason Admit Date/Time Jul 29, 2018 at 06:16 Date/Time of Note DATE: 08/27/18 TIME: 11:19 Hx of Present Illness Spoke with patient's son once again they have not come to the decision whether not to reintubate patient if she is successfully extubated. However I have also asked him to consider DO NOT RESUSCITATE order either before or after successful extubation. Past Medical History Medical History: congestive heart failure, coronary artery disease Home Meds Active Scripts Magnesium Oxide* (Mag-Oxide*) 400 Mg Tablet, 400 MG PO BID for 3 Days, #10 TAB Prov:FERNANDO YANCEY MD 07/08/18 Lactobacillus Rhamnosus GG (Culturelle) 1 Each Capsule, 1 CAP PO BID for 14 Days, #30 CAP Prov:FERNANDO YANCEY MD 07/08/18 Acetaminophen* (Tylenol*) 325 Mg Tablet, 650 MG PO Q6H PRN for .PAIN 1-3 OR TEMP for 10 Days, #10 TAB Prov:FERNANDO YANCEY MD 07/08/18 Lisinopril* (Lisinopril*) 5 Mg Tablet, 2.5 MG PO DAILY for 15 Days, #15 TAB Prov:FERNANDO YANCEY MD 07/08/18 Sulfamethoxazole/Trimethoprim (Sulfamethoxazole-Tmp Ds Tablet) 1 Each Tablet, 1 TAB PO BID for 5 Days, #10 TAB Prov:FERNANDO YANCEY MD 07/08/18 Reported Medications Sodium Bicarbonate* (Sodium Bicarbonate*) 650 Mg Tablet, 650 MG PO TID, TAB 07/05/18 Propylene Glycol-Peg 400 (Systane 0.3-0.4% Eye Drops) 0.3-0.4 % - 30 Ml Drops, 1 DROP BOTH EYES Q4H PRN for DRY EYES, #1 BOTTLE 07/05/18 Pantoprazole* (Protonix*) 40 Mg Tablet.dr, 40 MG PO QAM, TAB 07/05/18 Ondansetron Hcl* (Zofran*) 8 Mg Tablet, 8 MG PO Q6H PRN for NAUSEA AND OR VOMITING, TAB 07/05/18 Metoprolol Succinate* (Toprol XL*) 25 Mg Tab.sr.24h, 25 MG PO BID, #30 TAB 07/05/18 Metformin* (Glucophage*) 500 Mg Tab, 500 MG PO WITH BREAKFAST, #30 TAB 07/05/18 Levothyroxine Sodium* (Synthroid*) 50 Mcg Tablet, 50 MCG PO BEFORE BREAKFAST, #30 TAB 07/05/18 Hydrocodone/Acetaminophen ([place]rier 5-325 Tablet) 1 Each Tablet, 1 EACH PO Q6 PRN for PAIN, TAB 07/05/18 Alfred-3 Fatty Acids/Fish Oil (Fish Oil 1,000 mg Capsule) 1 Each Capsule, 1 EACH PO DAILY, CAP 07/05/18 Cyanocobalamin* (Vitamin B-12*) 50 Mcg Tablet, 50 MCG PO DAILY, TAB 07/05/18 Clopidogrel Bisulfate (Clopidogrel) 75 Mg Tablet, 75 MG PO DAILY, #30 TAB 07/05/18 Atorvastatin Calcium* (Atorvastatin Calcium*) 20 Mg Tablet, 20 MG PO QHS, #30 TAB 07/05/18 Aspirin* (Aspirin* EC) 81 Mg Tablet.dr, 81 MG PO DAILY, TAB 07/05/18 Artificial Tears* (Akwa Oint*) 3.5 Gm Oint, 1 APPLIC BOTH EYES Q1H PRN for DRY EYES, #1 TUB 07/05/18 Albuterol Sulfate (Proair Respiclick) 90 Mcg Aer.pow.ba, 2 PUFFS INHALATION Q4 PRN for WHEEZING, BOTTLE 07/05/18 Medications Current Medications IV Flush (NS 3 ml) 3 ml PER PROTOCOL IV Last administered on 08/05/18at 09:07; Admin Dose 3 ML; Start 07/29/18 at 06:30 Ondansetron HCl (Zofran Inj) 4 mg Q6H PRN IV NAUSEA/VOMITING Last administered on 08/18/18at 18:34; Admin Dose 4 MG; Start 07/29/18 at 06:30 Acetaminophen/ Hydrocodone Bitart ([place] (5/325)) 1 tab Q6H PRN PO .MOD PAIN 4- 6 Last administered on 08/19/18at 03:42; Admin Dose 1 TAB; Start 07/29/18 at 06:30 Diagnostic Test (Pha) (Accu-Chek) 1 ea 02 XX Last administered on 08/27/18at 01:38; Admin Dose 1 EA; Start 07/30/18 at 02:00 Acetaminophen (Tylenol Tab) 650 mg Q6H PRN PO .PAIN 1-3 OR TEMP Last administered on 08/17/18at 05:46; Admin Dose 650 MG; Start 07/29/18 at 07:00 Eye Lubricant (Akwa Oint) 1 applic Q1H PRN BOTH EYES DRY EYES; Start 07/29/18 at 08:00 Aspirin (Halfprin) 81 mg DAILY PO Last administered on 08/27/18at 08:16; Admin Dose 81 MG; Start 07/29/18 at 09:00 Atorvastatin Calcium (Lipitor) 20 mg QHS PO Last administered on 08/26/18at 20:49; Admin Dose 20 MG; Start 07/29/18 at 21:00 Clopidogrel Bisulfate (plaVIX) 75 mg DAILY PO Last administered on 08/27/18at 08:16; Admin Dose 75 MG; Start 07/29/18 at 09:00 Cyanocobalamin (Vitamin B12) 50 mcg DAILY PO Last administered on 08/27/18at 08:18; Admin Dose 50 MCG; Start 07/29/18 at 09:00 Levothyroxine Sodium (Synthroid) 50 mcg BEFORE BREAKFAST PO Last administered on 08/27/18at 06:19; Admin Dose 50 MCG; Start 07/29/18 at 07:00 Polyethyl Glycol/ Propylene Glycol (Systane 0.3-0.4% Eye Drops) 1 drop Q4H PRN BOTH EYES DRY EYES; Start 07/29/18 at 08:00 Albuterol (Ventolin Hfa) 2 puff Q4H RESP THERAPY PRN INH WHEEZING; Start 07/29/18 at 09:00 Miscellaneous Information 1 ea NOTE XX ; Start 07/29/18 at 07:00 Glucose (Glutose) 15 gm Q15M PRN PO DECREASED GLUCOSE; Start 07/29/18 at 07:00 Glucose (Glutose) 22.5 gm Q15M PRN PO DECREASED GLUCOSE; Start 07/29/18 at 07:00 Dextrose (D50w Syringe) 25 ml Q15M PRN IV DECREASED GLUCOSE Last administered on 08/24/18at 07:58; Admin Dose 25 ML; Start 07/29/18 at 07:00 Dextrose (D50w Syringe) 50 ml Q15M PRN IV DECREASED GLUCOSE; Start 07/29/18 at 07:00 Glucagon (Glucagen) 1 mg Q15M PRN IM DECREASED GLUCOSE; Start 07/29/18 at 07:00 Glucose (Glutose) 15 gm Q15M PRN BUCCAL DECREASED GLUCOSE; Start 07/29/18 at 07:00 Alprazolam (Xanax) 0.25 mg Q8H PRN PO ANXIETY Last administered on 08/19/18 00:10; Admin Dose 0.25 MG; Start 07/29/18 at 12:30 Polyethylene Glycol (Miralax) 17 gm DAILY PO Last administered on 08/27/18 08:17; Admin Dose 17 GM; Start 07/29/18 at 12:30 Docusate Sodium (Colace) 100 mg BID PO Last administered on 08/26/18 20:49; Admin Dose 100 MG; Start 07/31/18 at 21:00 Magnesium Hydroxide (Milk Of Mag) 30 ml Q12H PRN PO STOMACH UPSET/CRAMPING Last administered on 07/31/18 21:28; Admin Dose 30 ML; Start 07/31/18 at 20:00 Al Hydrox/Mg Hydrox/Simethicone (Mag-Al Plus) 30 ml Q6H PRN PO GASTROINTESTINAL UPSET Last administered on 08/16/18 23:45; Admin Dose 30 ML; Start 08/03/18 at 17:30 Insulin Glargine (Lantus) 8 units DAILY@2000 SC Last administered on 08/26/18 20:51; Admin Dose 8 UNITS; Start 08/09/18 at 20:00 Albuterol/ Ipratropium (Duoneb) 3 ml Q2H RESP THERAPY PRN HHN sob Last administered on 08/19/18 03:28; Admin Dose 3 ML; Start 08/14/18 at 12:00 Diltiazem HCl (Cardizem Iv) 5 mg Q4 PRN IV HR>70 for Cardiac CTA Last administered on 08/19/18 03:50; Admin Dose 5 MG; Start 08/17/18 at 11:30 Lorazepam (Ativan) 1 mg Q8H PRN IV ANXIETY Last administered on 08/20/18 12:39; Admin Dose 1 MG; Start 08/17/18 at 15:30 Epoetin Glenn-epbx (Retacrit (Non-Esrd)) 20,000 unit TuThSa@1700 SC Last administered on 08/25/18 17:33; Admin Dose 20,000 UNIT; Start 08/18/18 at 17:00 Simethicone (Mylicon) 160 mg Q6H PRN PO DISTENSION/GAS/BLOATING Last administered on 08/18/18 08:49; Admin Dose 160 MG; Start 08/17/18 at 20:00 Propofol 100 ml @ 1.568 mls/ hr Q12H IV Last administered on 08/27/18 08:28; Admin Dose 3.136 MLS/HR; Start 08/19/18 at 09:30 Norepinephrine 250 ml @ 1.875 mls/ hr TITRATE IV Last administered on 08/20/18 08:57; Admin Dose 9.375 MLS/HR; Start 08/19/18 at 10:30 Insulin Aspart (Novolog Insulin Pen) NOVOLOG *MODERATE* ALGORI... Q4 SC Last administered on 08/27/18 01:40; Admin Dose 2 UNIT; Start 08/20/18 at 01:00 Lansoprazole (Prevacid) 30 mg DAILY@06 NGT Last administered on 08/27/18 06:19; Admin Dose 30 MG; Start 08/21/18 at 06:00 Piperacillin Sod/ Tazobactam Sod 100 ml @ 200 mls/hr Q8 IVPB Last administered on 08/27/18 06:19; Admin Dose 200 MLS/HR; Start 08/22/18 at 22:00 Enoxaparin Sodium (Lovenox) 50 mg DAILY SC Last administered on 08/27/18 08:18; Admin Dose 50 MG; Start 08/24/18 at 09:00 Metoprolol Tartrate (Lopressor) 25 mg BID PO Last administered on 08/26/18 07:51; Admin Dose 25 MG; Start 08/23/18 at 21:00 Fentanyl 100 ml @ 2.5 mls/hr TITRATE IV Last administered on 08/26/18 09:36; Admin Dose 2.5 MLS/HR; Start 08/26/18 at 09:00 Vancomycin HCl (Vanco Iv Per Pharmacy) VANCOMYCIN PER PHARMACY PER PROTOCOL XX ; Start 08/26/18 at 14:30 Vancomycin HCl 100 ml @ 100 mls/hr Q24H IVPB ; Start 08/27/18 at 16:00 Allergies: Coded Allergies: levofloxacin (Verified Allergy, Unknown, 08/23/18) Past Surgical History Past Surgical Hx: other (Refer to history of present illness) Social History Alcohol Use: none Smoking Status: Never smoker Drug Use: none Exam/Review of Systems Exam Vitals Vital Signs Date Temp Pulse Resp B/P (MAP) Pulse Ox O2 O2 Flow FiO2 Time Delivery Rate 08/27/18 82 24 118/55 99 09:45 (76) 08/27/18 Mechanical 09:00 Ventilator 08/27/18 30 08:00 08/27/18 98.5 08:00 Intake and Output 08/26/18 08/26/18 08/27/18 1515:00 23:00 07:00 IntakeIntake Total 285.226 ml 632.112 ml 567.254 ml OutputOutput Total 1540 ml 205 ml 200 ml BalanceBalance -1254.774 ml 427.112 ml 367.254 ml Results Result Diagram: 08/27/18 0400 08/27/18 0400 Results 24hrs Laboratory Tests Test 08/26/18 12:43 08/26/18 12:55 08/26/18 14:20 08/26/18 16:09 Blood Gas Blood arterial Specimen Source Arterial Blood 08/26/2018 12:40 Date Drawn :37 PM Arterial Blood 7.376 pH (Temp corrected) Arterial Blood 23.6 L pCO2 (Temp correct) Arterial Blood 113.9 H pO2 (Temp corrected) Arterial Blood 13.5 L HCO3 Arterial Blood -10.2 L Base Excess Arterial Blood 98.0 Oxygen Saturatio n Quinten Test ACCEPTAB Arterial Blood Right Radial Gas Puncture Site Arterial 0 Blood Carboxyhem oglobin Arterial Blood 0.2 Methemoglobin Blood Gas A-a O2 72.3 H Differential Oxyhemoglobin 97.8 Percent Blood Gas 37.0 Temperature Blood Gas Actual 22 Respiration Rate Blood Gas VENT - CPAP Modality FiO2 30.0 Blood Gas Low 5.0 PEEP Setting Blood Gas 10 Pressure Support Blood Gas Theodora Notified Whom Blood Gas 08/26/2018 12:56 Notified Time :03 PM Bedside Glucose 102 126 Urine Color YELLOW Urine Clarity SLIGHTLY CLOUDY A Urine pH 5.0 Urine Specific 1.010 [place] Urine Ketones NEGATIVE Urine Nitrite NEGATIVE Urine Bilirubin NEGATIVE Urine NEGATIVE Urobilinogen Urine Leukocyte NEGATIVE Esterase Urine 166 H Microscopic RBC Urine 13 H Microscopic WBC Urine Bacteria FEW A Urine Hemoglobin 3+ H Urine Random 22.56 Creatinine Urine Random 109 H Sodium Urine Glucose NEGATIVE Urine Total 41.0 H Protein Test 08/26/18 20:43 08/27/18 01:38 08/27/18 04:00 08/27/18 04:34 Bedside Glucose 118 148 124 White Blood 17.0 H Count Red Blood Count 3.06 L Hemoglobin 8.5 L Hematocrit 26.5 L Mean Corpuscular 86.6 Volume Mean Corpuscular 27.8 L Hemoglobin Mean Corpuscular 32.1 Hemoglobin Nellie nt Red Cell 17.4 H Distribution Width Platelet Count 535 H Mean Platelet 10.4 Volume Immature 4.900 H Granulocytes % Neutrophils % 64.6 Lymphocytes % 10.7 L Monocytes % 13.8 H Eosinophils % 5.4 Basophils % 0.6 Nucleated Red 6.1 H Blood Cells % Immature 0.830 H Granulocytes # Neutrophils # 11.0 H Lymphocytes # 1.8 Monocytes # 2.3 H Eosinophils # 0.9 H Basophils # 0.1 Nucleated Red 1.0 H Blood Cells # Sodium Level 143 Potassium Level 3.4 L Chloride Level 116 H Carbon Dioxide 16 L Level Anion Gap 11 Blood Urea 50 H Nitrogen Creatinine 2.14 H Est Glomerular 23 L Filtrat Rate mL/min Glucose Level 122 Calcium Level 8.7 Phosphorus Level 4.2 Magnesium Level 2.5 Test 08/27/18 07:00 08/27/18 08:26 08/27/18 11:00 Blood Gas Blood arterial Blood arterial Specimen Source Arterial Blood 08/27/2018 8:03:0 08/27/2018 10:56: Date Drawn 8 AM 26 AM Arterial Blood 7.397 7.388 pH (Temp corrected) Arterial Blood 23.5 L 23.8 L pCO2 (Temp correct) Arterial Blood 108.2 H 98.8 pO2 (Temp corrected) Arterial Blood 14.1 L 14.0 L HCO3 Arterial Blood -9.3 L -9.5 L Base Excess Arterial Blood 98.1 H 97.6 Oxygen Saturatio n Quinten Test ACCEPTAB ACCEPTAB Arterial Blood Right Radial Right Radial Gas Puncture Site Arterial 0 0.1 Blood Carboxyhem oglobin Arterial Blood 0.2 0.3 Methemoglobin Blood Gas A-a O2 78.1 H 87.1 H Differential Oxyhemoglobin 97.9 97.2 Percent Blood Gas 37.0 37.0 Temperature Blood Gas 16.0 Respiration Rate Blood Gas Actual 19 32 Respiration Rate Blood Gas VENT - AC VENT - CPAP Modality FiO2 30.0 30.0 Blood Gas Tidal 45.0 Volume Blood Gas Low 5.0 5.0 PEEP Setting Blood Gas TM TM Notified Whom Blood Gas 08/27/2018 8:33:4 08/27/2018 11:06: Notified Time 8 AM 11 AM Bedside Glucose 121 Blood Gas 10 Pressure Support Medications Medication Current Medications IV Flush (NS 3 ml) 3 ml PER PROTOCOL IV Last administered on 08/05/18 09:07; Admin Dose 3 ML; Start 07/29/18 at 06:30 Ondansetron HCl (Zofran Inj) 4 mg Q6H PRN IV NAUSEA/VOMITING Last administered on 08/18/18 18:34; Admin Dose 4 MG; Start 07/29/18 at 06:30 Acetaminophen/ Hydrocodone Bitart ([place] (5/325)) 1 tab Q6H PRN PO .MOD PAIN 4- 6 Last administered on 08/19/18 03:42; Admin Dose 1 TAB; Start 07/29/18 at 06:30 Diagnostic Test (Pha) (Accu-Chek) 1 ea 02 XX Last administered on 08/27/18 01:38; Admin Dose 1 EA; Start 07/30/18 at 02:00 Acetaminophen (Tylenol Tab) 650 mg Q6H PRN PO .PAIN 1-3 OR TEMP Last administered on 08/17/18 05:46; Admin Dose 650 MG; Start 07/29/18 at 07:00 Eye Lubricant (Akwa Oint) 1 applic Q1H PRN BOTH EYES DRY EYES; Start 07/29/18 at 08:00 Aspirin (Halfprin) 81 mg DAILY PO Last administered on 08/27/18 08:16; Admin Dose 81 MG; Start 07/29/18 at 09:00 Atorvastatin Calcium (Lipitor) 20 mg QHS PO Last administered on 08/26/18 20:49; Admin Dose 20 MG; Start 07/29/18 at 21:00 Clopidogrel Bisulfate (plaVIX) 75 mg DAILY PO Last administered on 08/27/18 08:16; Admin Dose 75 MG; Start 07/29/18 at 09:00 Cyanocobalamin (Vitamin B12) 50 mcg DAILY PO Last administered on 7/1/19at 08:18; Admin Dose 50 MCG; Start 07/29/18 at 09:00 Levothyroxine Sodium (Synthroid) 50 mcg BEFORE BREAKFAST PO Last administered on 08/27/18 06:19; Admin Dose 50 MCG; Start 07/29/18 at 07:00 Polyethyl Glycol/ Propylene Glycol (Systane 0.3-0.4% Eye Drops) 1 drop Q4H PRN BOTH EYES DRY EYES; Start 07/29/18 at 08:00 Albuterol (Ventolin Hfa) 2 puff Q4H RESP THERAPY PRN INH WHEEZING; Start 07/29/18 at 09:00 Miscellaneous Information 1 ea NOTE XX ; Start 07/29/18 at 07:00 Glucose (Glutose) 15 gm Q15M PRN PO DECREASED GLUCOSE; Start 07/29/18 at 07:00 Glucose (Glutose) 22.5 gm Q15M PRN PO DECREASED GLUCOSE; Start 07/29/18 at 07:00 Dextrose (D50w Syringe) 25 ml Q15M PRN IV DECREASED GLUCOSE Last administered on 08/24/18at 07:58; Admin Dose 25 ML; Start 07/29/18 at 07:00 Dextrose (D50w Syringe) 50 ml Q15M PRN IV DECREASED GLUCOSE; Start 07/29/18 at 07:00 Glucagon (Glucagen) 1 mg Q15M PRN IM DECREASED GLUCOSE; Start 07/29/18 at 07:00 Glucose (Glutose) 15 gm Q15M PRN BUCCAL DECREASED GLUCOSE; Start 07/29/18 at 07:00 Alprazolam (Xanax) 0.25 mg Q8H PRN PO ANXIETY Last administered on 08/19/18at 00:10; Admin Dose 0.25 MG; Start 07/29/18 at 12:30 Polyethylene Glycol (Miralax) 17 gm DAILY PO Last administered on 08/27/18 08:17; Admin Dose 17 GM; Start 07/29/18 at 12:30 Docusate Sodium (Colace) 100 mg BID PO Last administered on 08/26/18at 20:49; Admin Dose 100 MG; Start 07/31/18 at 21:00 Magnesium Hydroxide (Milk Of Mag) 30 ml Q12H PRN PO STOMACH UPSET/CRAMPING Last administered on 07/31/18at 21:28; Admin Dose 30 ML; Start 07/31/18 at 20:00 Al Hydrox/Mg Hydrox/Simethicone (Mag-Al Plus) 30 ml Q6H PRN PO GASTROINTESTINAL UPSET Last administered on 08/16/18 23:45; Admin Dose 30 ML; Start 08/03/18 at 17:30 Insulin Glargine (Lantus) 8 units DAILY@2000 SC Last administered on 08/26/18 20:51; Admin Dose 8 UNITS; Start 08/09/18 at 20:00 Albuterol/ Ipratropium (Duoneb) 3 ml Q2H RESP THERAPY PRN HHN sob Last administered on 08/19/18 03:28; Admin Dose 3 ML; Start 08/14/18 at 12:00 Diltiazem HCl (Cardizem Iv) 5 mg Q4 PRN IV HR>70 for Cardiac CTA Last administered on 08/19/18 03:50; Admin Dose 5 MG; Start 08/17/18 at 11:30 Lorazepam (Ativan) 1 mg Q8H PRN IV ANXIETY Last administered on 08/20/18 12:39; Admin Dose 1 MG; Start 08/17/18 at 15:30 Epoetin Glenn-epbx (Retacrit (Non-Esrd)) 20,000 unit TuThSa@1700 SC Last administered on 08/25/18 17:33; Admin Dose 20,000 UNIT; Start 08/18/18 at 17:00 Simethicone (Mylicon) 160 mg Q6H PRN PO DISTENSION/GAS/BLOATING Last administered on 08/18/18 08:49; Admin Dose 160 MG; Start 08/17/18 at 20:00 Propofol 100 ml @ 1.568 mls/ hr Q12H IV Last administered on 08/27/18 08:28; Admin Dose 3.136 MLS/HR; Start 08/19/18 at 09:30 Norepinephrine 250 ml @ 1.875 mls/ hr TITRATE IV Last administered on 08/20/18 08:57; Admin Dose 9.375 MLS/HR; Start 08/19/18 at 10:30 Insulin Aspart (Novolog Insulin Pen) NOVOLOG *MODERATE* ALGORI... Q4 SC Last administered on 08/27/18 01:40; Admin Dose 2 UNIT; Start 08/20/18 at 01:00 Lansoprazole (Prevacid) 30 mg DAILY@06 NGT Last administered on 08/27/18at 06:19; Admin Dose 30 MG; Start 08/21/18 at 06:00 Piperacillin Sod/ Tazobactam Sod 100 ml @ 200 mls/hr Q8 IVPB Last administered on 08/27/18at 06:19; Admin Dose 200 MLS/HR; Start 08/22/18 at 22:00 Enoxaparin Sodium (Lovenox) 50 mg DAILY SC Last administered on 08/27/18at 08:18; Admin Dose 50 MG; Start 08/24/18 at 09:00 Metoprolol Tartrate (Lopressor) 25 mg BID PO Last administered on 08/26/18at 07:51; Admin Dose 25 MG; Start 08/23/18 at 21:00 Fentanyl 100 ml @ 2.5 mls/hr TITRATE IV Last administered on 08/26/18at 09:36; Admin Dose 2.5 MLS/HR; Start 08/26/18 at 09:00 Vancomycin HCl (Vanco Iv Per Pharmacy) VANCOMYCIN PER PHARMACY PER PROTOCOL XX ; Start 08/26/18 at 14:30 Vancomycin HCl 100 ml @ 100 mls/hr Q24H IVPB ; Start 08/27/18 at 16:00 SARANYA ROBLERO Aug 27, 2018 11:20
[2018-08-27] MEDS: SODIUM BICARBONATE (IV ADD) 100 MEQ in DEXTROSE 5%-0.45% NACL 900 ML IV SCH (13:35)
--- NOTE | 2018-08-27 14:06 | CONS ---
Assessment/Plan Assessment/Plan Hospital Course (Demo Recall) No acute events patient looks comfortable no fevers overnight WBC today 17 platelets 535 neutrophils 64.6 BUN 50 creatinine 2.14 Antimicrobials: Vancomycin, Zosyn ALL: Levaquin Indwelling: Endotracheal tube NG tube [place] catheter, femoral triple-lumen catheter, Pleurx Physical examination: Well-developed fragile elderly woman who is in no distress. Head atraumatic normocephalic sclera nonicteric vehicle mucosa dry neck is supple chest rise symmetrical breath sounds diminished bases heart: S1- S2 abdomen soft bowel sounds hypoactive extremities with trace edema Assessment: 1. Persistent leukocytosis 2. Status post asystolic cardiopulmonary arrest requiring intubation 3. Persistent right pleural effusion likely malignant, possibly parapneumonic 4. 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 Acute kidney insufficiency 6. Diabetes 7. Pneumonia 8. Right mastoiditis Plan: Remains unchanged, pending repeat cultures, continue present care, prognosis poor, patient's CODE STATUS was changed to chemical only Consultation Date/Type/Reason Admit Date/Time Jul 29, 2018 at 06:16 Initial Consult Date 08/15/18 Type of Consult id Requesting Provider: SANDI MURDOCK NP Date/Time of Note DATE: 08/27/18 TIME: 14:05 Exam/Review of Systems Exam Vitals Vital Signs Date Temp Pulse Resp B/P (MAP) Pulse Ox O2 O2 Flow FiO2 Time Delivery Rate 08/27/18 98.6 82 35 112/68 100 Mechanical 12:00 (83) Ventilator 08/27/18 30 11:26 Intake and Output 08/26/18 08/26/18 08/27/18 1515:00 23:00 07:00 IntakeIntake Total 285.226 ml 632.112 ml 567.254 ml OutputOutput Total 1540 ml 205 ml 200 ml BalanceBalance -1254.774 ml 427.112 ml 367.254 ml Results Result Diagram: 08/27/18 0400 08/27/18 0400 Results 24hrs Laboratory Tests Test 08/26/18 14:20 08/26/18 16:09 08/26/18 20:43 08/27/18 01:38 Urine Color YELLOW Urine Clarity SLIGHTLY CLOUDY A Urine pH 5.0 Urine Specific 1.010 [place] Urine Ketones NEGATIVE Urine Nitrite NEGATIVE Urine Bilirubin NEGATIVE Urine NEGATIVE Urobilinogen Urine Leukocyte NEGATIVE Esterase Urine 166 H Microscopic RBC Urine 13 H Microscopic WBC Urine Bacteria FEW A Urine Hemoglobin 3+ H Urine Random 22.56 Creatinine Urine Random 109 H Sodium Urine Glucose NEGATIVE Urine Total 41.0 H Protein Bedside Glucose 126 118 148 Test 08/27/18 04:00 08/27/18 04:34 08/27/18 07:00 08/27/18 08:26 White Blood 17.0 H Count Red Blood Count 3.06 L Hemoglobin 8.5 L Hematocrit 26.5 L Mean Corpuscular 86.6 Volume Mean Corpuscular 27.8 L Hemoglobin Mean Corpuscular 32.1 Hemoglobin Nellie nt Red Cell 17.4 H Distribution Width Platelet Count 535 H Mean Platelet 10.4 Volume Immature 4.900 H Granulocytes % Neutrophils % 64.6 Lymphocytes % 10.7 L Monocytes % 13.8 H Eosinophils % 5.4 Basophils % 0.6 Nucleated Red 6.1 H Blood Cells % Immature 0.830 H Granulocytes # Neutrophils # 11.0 H Lymphocytes # 1.8 Monocytes # 2.3 H Eosinophils # 0.9 H Basophils # 0.1 Nucleated Red 1.0 H Blood Cells # Sodium Level 143 Potassium Level 3.4 L Chloride Level 116 H Carbon Dioxide 16 L Level Anion Gap 11 Blood Urea 50 H Nitrogen Creatinine 2.14 H Est Glomerular 23 L Filtrat Rate mL/min Glucose Level 122 Calcium Level 8.7 Phosphorus Level 4.2 Magnesium Level 2.5 Bedside Glucose 124 121 Blood Gas Blood arterial Specimen Source Arterial Blood 08/27/2018 8:03:0 Date Drawn 8 AM Arterial Blood 7.397 pH (Temp corrected) Arterial Blood 23.5 L pCO2 (Temp correct) Arterial Blood 108.2 H pO2 (Temp corrected) Arterial Blood 14.1 L HCO3 Arterial Blood -9.3 L Base Excess Arterial Blood 98.1 H Oxygen Saturatio n Quinten Test ACCEPTAB Arterial Blood Right Radial Gas Puncture Site Arterial 0 Blood Carboxyhem oglobin Arterial Blood 0.2 Methemoglobin Blood Gas A-a O2 78.1 H Differential Oxyhemoglobin 97.9 Percent Blood Gas 37.0 Temperature Blood Gas 16.0 Respiration Rate Blood Gas Actual 19 Respiration Rate Blood Gas VENT - AC Modality FiO2 30.0 Blood Gas Tidal 45.0 Volume Blood Gas Low 5.0 PEEP Setting Blood Gas TM Notified Whom Blood Gas 08/27/2018 8:33:4 Notified Time 8 AM Test 08/27/18 11:00 08/27/18 12:41 Blood Gas Blood arterial Specimen Source Arterial Blood 08/27/2018 10:56:2 Date Drawn 6 AM Arterial Blood 7.388 pH (Temp corrected) Arterial Blood 23.8 L pCO2 (Temp correct) Arterial Blood 98.8 pO2 (Temp corrected) Arterial Blood 14.0 L HCO3 Arterial Blood -9.5 L Base Excess Arterial Blood 97.6 Oxygen Saturatio n Quinten Test ACCEPTAB Arterial Blood Right Radial Gas Puncture Site Arterial 0.1 Blood Carboxyhem oglobin Arterial Blood 0.3 Methemoglobin Blood Gas A-a O2 87.1 H Differential Oxyhemoglobin 97.2 Percent Blood Gas 37.0 Temperature Blood Gas Actual 32 Respiration Rate Blood Gas VENT - CPAP Modality FiO2 30.0 Blood Gas Low 5.0 PEEP Setting Blood Gas 10 Pressure Support Blood Gas TM Notified Whom Blood Gas 08/27/2018 11:06:1 Notified Time 1 AM Bedside Glucose 118 Medications Medication Current Medications IV Flush (NS 3 ml) 3 ml PER PROTOCOL IV Last administered on 08/05/18 09:07; Admin Dose 3 ML; Start 07/29/18 at 06:30 Ondansetron HCl (Zofran Inj) 4 mg Q6H PRN IV NAUSEA/VOMITING Last administered on 08/18/18 18:34; Admin Dose 4 MG; Start 07/29/18 at 06:30 Acetaminophen/ Hydrocodone Bitart ([place] (5/325)) 1 tab Q6H PRN PO .MOD PAIN 4- 6 Last administered on 08/19/18 03:42; Admin Dose 1 TAB; Start 07/29/18 at 06:30 Diagnostic Test (Pha) (Accu-Chek) 1 ea 02 XX Last administered on 08/27/18 01:38; Admin Dose 1 EA; Start 07/30/18 at 02:00 Acetaminophen (Tylenol Tab) 650 mg Q6H PRN PO .PAIN 1-3 OR TEMP Last administered on 08/17/18 05:46; Admin Dose 650 MG; Start 07/29/18 at 07:00 Eye Lubricant (Akwa Oint) 1 applic Q1H PRN BOTH EYES DRY EYES; Start 07/29/18 at 08:00 Aspirin (Halfprin) 81 mg DAILY PO Last administered on 08/27/18 08:16; Admin Dose 81 MG; Start 07/29/18 at 09:00 Atorvastatin Calcium (Lipitor) 20 mg QHS PO Last administered on 08/26/18at 20:49; Admin Dose 20 MG; Start 07/29/18 at 21:00 Clopidogrel Bisulfate (plaVIX) 75 mg DAILY PO Last administered on 08/27/18 08:16; Admin Dose 75 MG; Start 07/29/18 at 09:00 Cyanocobalamin (Vitamin B12) 50 mcg DAILY PO Last administered on 08/27/18at 08:18; Admin Dose 50 MCG; Start 07/29/18 at 09:00 Levothyroxine Sodium (Synthroid) 50 mcg BEFORE BREAKFAST PO Last administered on 08/27/18 06:19; Admin Dose 50 MCG; Start 07/29/18 at 07:00 Polyethyl Glycol/ Propylene Glycol (Systane 0.3-0.4% Eye Drops) 1 drop Q4H PRN BOTH EYES DRY EYES; Start 07/29/18 at 08:00 Albuterol (Ventolin Hfa) 2 puff Q4H RESP THERAPY PRN INH WHEEZING; Start 07/29/18 at 09:00 Miscellaneous Information 1 ea NOTE XX ; Start 07/29/18 at 07:00 Glucose (Glutose) 15 gm Q15M PRN PO DECREASED GLUCOSE; Start 07/29/18 at 07:00 Glucose (Glutose) 22.5 gm Q15M PRN PO DECREASED GLUCOSE; Start 07/29/18 at 07:00 Dextrose (D50w Syringe) 25 ml Q15M PRN IV DECREASED GLUCOSE Last administered on 08/24/18at 07:58; Admin Dose 25 ML; Start 07/29/18 at 07:00 Dextrose (D50w Syringe) 50 ml Q15M PRN IV DECREASED GLUCOSE; Start 07/29/18 at 07:00 Glucagon (Glucagen) 1 mg Q15M PRN IM DECREASED GLUCOSE; Start 07/29/18 at 07:00 Glucose (Glutose) 15 gm Q15M PRN BUCCAL DECREASED GLUCOSE; Start 07/29/18 at 07:00 Alprazolam (Xanax) 0.25 mg Q8H PRN PO ANXIETY Last administered on 08/19/18at 00:10; Admin Dose 0.25 MG; Start 07/29/18 at 12:30 Polyethylene Glycol (Miralax) 17 gm DAILY PO Last administered on 08/27/18 08:17; Admin Dose 17 GM; Start 07/29/18 at 12:30 Docusate Sodium (Colace) 100 mg BID PO Last administered on 08/26/18 20:49; Admin Dose 100 MG; Start 07/31/18 at 21:00 Magnesium Hydroxide (Milk Of Mag) 30 ml Q12H PRN PO STOMACH UPSET/CRAMPING Last administered on 07/31/18 21:28; Admin Dose 30 ML; Start 07/31/18 at 20:00 Al Hydrox/Mg Hydrox/Simethicone (Mag-Al Plus) 30 ml Q6H PRN PO GASTROINTESTINAL UPSET Last administered on 08/16/18 23:45; Admin Dose 30 ML; Start 08/03/18 at 17:30 Insulin Glargine (Lantus) 8 units DAILY@2000 SC Last administered on 08/26/18 20:51; Admin Dose 8 UNITS; Start 08/09/18 at 20:00 Albuterol/ Ipratropium (Duoneb) 3 ml Q2H RESP THERAPY PRN HHN sob Last administered on 08/19/18 03:28; Admin Dose 3 ML; Start 08/14/18 at 12:00 Diltiazem HCl (Cardizem Iv) 5 mg Q4 PRN IV HR>70 for Cardiac CTA Last administered on 08/19/18 03:50; Admin Dose 5 MG; Start 08/17/18 at 11:30 Lorazepam (Ativan) 1 mg Q8H PRN IV ANXIETY Last administered on 08/20/18 12:39; Admin Dose 1 MG; Start 08/17/18 at 15:30 Epoetin Glenn-epbx (Retacrit (Non-Esrd)) 20,000 unit TuThSa@1700 SC Last administered on 08/25/18 17:33; Admin Dose 20,000 UNIT; Start 08/18/18 at 17:00 Simethicone (Mylicon) 160 mg Q6H PRN PO DISTENSION/GAS/BLOATING Last admi nistered on 08/18/18 08:49; Admin Dose 160 MG; Start 08/17/18 at 20:00 Propofol 100 ml @ 1.568 mls/ hr Q12H IV Last administered on 08/27/18 08:28; Admin Dose 3.136 MLS/HR; Start 08/19/18 at 09:30 Norepinephrine 250 ml @ 1.875 mls/ hr TITRATE IV Last administered on 08/20/18 08:57; Admin Dose 9.375 MLS/HR; Start 08/19/18 at 10:30 Insulin Aspart (Novolog Insulin Pen) NOVOLOG *MODERATE* ALGORI... Q4 SC Last administered on 08/27/18at 01:40; Admin Dose 2 UNIT; Start 08/20/18 at 01:00 Lansoprazole (Prevacid) 30 mg DAILY@06 NGT Last administered on 08/27/18 06:19; Admin Dose 30 MG; Start 08/21/18 at 06:00 Piperacillin Sod/ Tazobactam Sod 100 ml @ 200 mls/hr Q8 IVPB Last administered on 08/27/18 13:10; Admin Dose 200 MLS/HR; Start 08/22/18 at 22:00 Enoxaparin Sodium (Lovenox) 50 mg DAILY SC Last administered on 08/27/18 08:18; Admin Dose 50 MG; Start 08/24/18 at 09:00 Metoprolol Tartrate (Lopressor) 25 mg BID PO Last administered on 08/26/18 07:51; Admin Dose 25 MG; Start 08/23/18 at 21:00 Fentanyl 100 ml @ 2.5 mls/hr TITRATE IV Last administered on 08/26/18 09:36; Admin Dose 2.5 MLS/HR; Start 08/26/18 at 09:00 Vancomycin HCl (Vanco Iv Per Pharmacy) VANCOMYCIN PER PHARMACY PER PROTOCOL XX ; Start 08/26/18 at 14:30 Vancomycin HCl 100 ml @ 100 mls/hr Q36H IVPB ; Start 08/28/18 at 04:00 Sodium Bicarbonate 100 meq/Dextrose/ Sodium Chloride 1,000 ml @ 100 mls/hr Q10H IV Last administered on 08/27/18at 13:35; Admin Dose 100 MLS/HR; Start 08/27/18 at 13:00 DENISSE THAO NP Aug 27, 2018 14:06
--- NOTE | 2018-08-27 16:05 | PN ---
Date/Time of Note Date/Time of Note DATE: 08/27/18 TIME: 16:03 Assessment/Plan VTE Prophylaxis Risk score (from Nsg)>0 risk: 9 Pharmacological prophylaxis: LMWH Assessment/Plan Hospital Course This is a 68-year-old female with past medical history of diabetes mellitus, peripheral artery disease, stroke, dyslipidemia, and hypothyroidism. The patient presented to the emergency room with multiple complaints including bilateral lower extremity edema, unintentional weight loss, etc. The patient was admitted to inpatient setting for further treatment and evaluation. The patient underwent a CT scan of the abdomen and pelvis on 08/01/2018 that showed abnormal enlargement of the uterus with significant thickening of the endometrial stripe with pelvis MRI showing irregular 9 cm exophytic posterior uterine mass. 1. Metastatic carcinosarcoma of uterus. Being followed by oncology. A poor candidate for chemo as per oncology. 2. Malignant pleural effusion. Status post right-sided thoracentesis on 08/15/2018. S/P Pleurx catheter placement on 08/23/2018. 3. Positive Lexiscan myocardial perfusion study. Study positive for partially reversible perfusion defect in the distal anterior wall. Being followed by cardiology. Continue aspirin plus Plavix. 4. Status post cardiopulmonary arrest on 08/19/2018. Etiology could be secondary to underlying hypoxia versus others. Intubated and on pressors. Poor prognosis. 5. NSTEMI on 08/22/2018. Continue antiplatelet therapy. Cardiology following. 6. Peripheral artery disease. Being followed by vascular surgery. Optimize medical management. Continue aspirin plus Plavix. Continue statins. 7. Diabetes mellitus. Hemoglobin A1c 6.3. Continue sliding scale insulin along with basal. 8. Hypothyroidism. Continue Synthroid. 9. Acute kidney injury. Being followed by nephrology. Use nephrotoxic drugs with caution. 10. Normocytic anemia. Monitor H&H closely. Continue Epogen. 11. Acute respiratory failure. Hypoxic. Ventilator management as per pulmonology. 12. S/P Shock. S/P IV pressors for blood pressure support. 13. Fluids, electrolytes, and nutrition. NPO. NGT feeds. 14. DVT prophylaxis. Subcutaneous Lovenox. DC planning: Palliative care consultation appreciated, patient now a chemical code Poor prognosis Result Diagram: 08/27/18 0400 08/27/18 0400 Results 24hrs Laboratory Tests Test 08/26/18 16:09 08/26/18 20:43 08/27/18 01:38 08/27/18 04:00 Bedside Glucose 126 118 148 White Blood 17.0 H Count Red Blood Count 3.06 L Hemoglobin 8.5 L Hematocrit 26.5 L Mean Corpuscular 86.6 Volume Mean Corpuscular 27.8 L Hemoglobin Mean Corpuscular 32.1 Hemoglobin Nellie nt Red Cell 17.4 H Distribution Width Platelet Count 535 H Mean Platelet 10.4 Volume Immature 4.900 H Granulocytes % Neutrophils % 64.6 Lymphocytes % 10.7 L Monocytes % 13.8 H Eosinophils % 5.4 Basophils % 0.6 Nucleated Red 6.1 H Blood Cells % Immature 0.830 H Granulocytes # Neutrophils # 11.0 H Lymphocytes # 1.8 Monocytes # 2.3 H Eosinophils # 0.9 H Basophils # 0.1 Nucleated Red 1.0 H Blood Cells # Sodium Level 143 Potassium Level 3.4 L Chloride Level 116 H Carbon Dioxide 16 L Level Anion Gap 11 Blood Urea 50 H Nitrogen Creatinine 2.14 H Est Glomerular 23 L Filtrat Rate mL/min Glucose Level 122 Calcium Level 8.7 Phosphorus Level 4.2 Magnesium Level 2.5 Test 08/27/18 04:34 08/27/18 07:00 08/27/18 08:26 08/27/18 11:00 Bedside Glucose 124 121 Blood Gas Blood arterial Blood arterial Specimen Source Arterial Blood 08/27/2018 8:03:08 08/27/2018 10:56: Date Drawn AM 26 AM Arterial Blood 7.397 7.388 pH (Temp corrected) Arterial Blood 23.5 L 23.8 L pCO2 (Temp correct) Arterial Blood 108.2 H 98.8 pO2 (Temp corrected) Arterial Blood 14.1 L 14.0 L HCO3 Arterial Blood -9.3 L -9.5 L Base Excess Arterial Blood 98.1 H 97.6 Oxygen Saturatio n Quinten Test ACCEPTAB ACCEPTAB Arterial Blood Right Radial Right Radial Gas Puncture Site Arterial 0 0.1 Blood Carboxyhem oglobin Arterial Blood 0.2 0.3 Methemoglobin Blood Gas A-a O2 78.1 H 87.1 H Differential Oxyhemoglobin 97.9 97.2 Percent Blood Gas 37.0 37.0 Temperature Blood Gas 16.0 Respiration Rate Blood Gas Actual 19 32 Respiration Rate Blood Gas VENT - AC VENT - CPAP Modality FiO2 30.0 30.0 Blood Gas Tidal 45.0 Volume Blood Gas Low 5.0 5.0 PEEP Setting Blood Gas TM TM Notified Whom Blood Gas 08/27/2018 8:33:48 08/27/2018 11:06: Notified Time AM 11 AM Blood Gas 10 Pressure Support Test 08/27/18 12:41 Bedside Glucose 118 Exam/Review of Systems Exam Vitals Vital Signs Date Temp Pulse Resp B/P (MAP) Pulse Ox O2 O2 Flow FiO2 Time Delivery Rate 08/27/18 74 20 95/42 (59) 99 14:45 08/27/18 Mechanical 14:00 Ventilator 08/27/18 98.6 12:00 08/27/18 30 11:26 Intake and Output 08/26/18 08/26/18 08/27/18 1515:00 23:00 07:00 IntakeIntake Total 285.226 ml 632.112 ml 567.254 ml OutputOutput Total 1540 ml 205 ml 200 ml BalanceBalance -1254.774 ml 427.112 ml 367.254 ml Results Results 24hrs Laboratory Tests Test 08/26/18 16:09 08/26/18 20:43 08/27/18 01:38 08/27/18 04:00 Bedside Glucose 126 118 148 White Blood 17.0 H Count Red Blood Count 3.06 L Hemoglobin 8.5 L Hematocrit 26.5 L Mean Corpuscular 86.6 Volume Mean Corpuscular 27.8 L Hemoglobin Mean Corpuscular 32.1 Hemoglobin Nellie nt Red Cell 17.4 H Distribution Width Platelet Count 535 H Mean Platelet 10.4 Volume Immature 4.900 H Granulocytes % Neutrophils % 64.6 Lymphocytes % 10.7 L Monocytes % 13.8 H Eosinophils % 5.4 Basophils % 0.6 Nucleated Red 6.1 H Blood Cells % Immature 0.830 H Granulocytes # Neutrophils # 11.0 H Lymphocytes # 1.8 Monocytes # 2.3 H Eosinophils # 0.9 H Basophils # 0.1 Nucleated Red 1.0 H Blood Cells # Sodium Level 143 Potassium Level 3.4 L Chloride Level 116 H Carbon Dioxide 16 L Level Anion Gap 11 Blood Urea 50 H Nitrogen Creatinine 2.14 H Est Glomerular 23 L Filtrat Rate mL/min Glucose Level 122 Calcium Level 8.7 Phosphorus Level 4.2 Magnesium Level 2.5 Test 08/27/18 04:34 08/27/18 07:00 08/27/18 08:26 08/27/18 11:00 Bedside Glucose 124 121 Blood Gas Blood arterial Blood arterial Specimen Source Arterial Blood 08/27/2018 8:03:08 08/27/2018 10:56: Date Drawn AM 26 AM Arterial Blood 7.397 7.388 pH (Temp corrected) Arterial Blood 23.5 L 23.8 L pCO2 (Temp correct) Arterial Blood 108.2 H 98.8 pO2 (Temp corrected) Arterial Blood 14.1 L 14.0 L HCO3 Arterial Blood -9.3 L -9.5 L Base Excess Arterial Blood 98.1 H 97.6 Oxygen Saturatio n Quinten Test ACCEPTAB ACCEPTAB Arterial Blood Right Radial Right Radial Gas Puncture Site Arterial 0 0.1 Blood Carboxyhem oglobin Arterial Blood 0.2 0.3 Methemoglobin Blood Gas A-a O2 78.1 H 87.1 H Differential Oxyhemoglobin 97.9 97.2 Percent Blood Gas 37.0 37.0 Temperature Blood Gas 16.0 Respiration Rate Blood Gas Actual 19 32 Respiration Rate Blood Gas VENT - AC VENT - CPAP Modality FiO2 30.0 30.0 Blood Gas Tidal 45.0 Volume Blood Gas Low 5.0 5.0 PEEP Setting Blood Gas TM TM Notified Whom Blood Gas 08/27/2018 8:33:48 08/27/2018 11:06: Notified Time AM 11 AM Blood Gas 10 Pressure Support Test 08/27/18 12:41 Bedside Glucose 118 Medications Medication Current Medications IV Flush (NS 3 ml) 3 ml PER PROTOCOL IV Last administered on 08/05/18 09:07; Admin Dose 3 ML; Start 07/29/18 at 06:30 Ondansetron HCl (Zofran Inj) 4 mg Q6H PRN IV NAUSEA/VOMITING Last administered on 08/18/18 18:34; Admin Dose 4 MG; Start 07/29/18 at 06:30 Acetaminophen/ Hydrocodone Bitart ([place] (5/325)) 1 tab Q6H PRN PO .MOD PAIN 4- 6 Last administered on 08/19/18 03:42; Admin Dose 1 TAB; Start 07/29/18 at 06:30 Diagnostic Test (Pha) (Accu-Chek) 1 ea 02 XX Last administered on 08/27/18at 01 :38; Admin Dose 1 EA; Start 07/30/18 at 02:00 Acetaminophen (Tylenol Tab) 650 mg Q6H PRN PO .PAIN 1-3 OR TEMP Last administered on 08/17/18at 05:46; Admin Dose 650 MG; Start 07/29/18 at 07:00 Eye Lubricant (Akwa Oint) 1 applic Q1H PRN BOTH EYES DRY EYES; Start 07/29/18 at 08:00 Aspirin (Halfprin) 81 mg DAILY PO Last administered on 08/27/18at 08:16; Admin Dose 81 MG; Start 07/29/18 at 09:00 Atorvastatin Calcium (Lipitor) 20 mg QHS PO Last administered on 08/26/18at 20:49; Admin Dose 20 MG; Start 07/29/18 at 21:00 Clopidogrel Bisulfate (plaVIX) 75 mg DAILY PO Last administered on 08/27/18at 08:16; Admin Dose 75 MG; Start 07/29/18 at 09:00 Cyanocobalamin (Vitamin B12) 50 mcg DAILY PO Last administered on 08/27/18at 08:18; Admin Dose 50 MCG; Start 07/29/18 at 09:00 Levothyroxine Sodium (Synthroid) 50 mcg BEFORE BREAKFAST PO Last administered on 08/27/18at 06:19; Admin Dose 50 MCG; Start 07/29/18 at 07:00 Polyethyl Glycol/ Propylene Glycol (Systane 0.3-0.4% Eye Drops) 1 drop Q4H PRN BOTH EYES DRY EYES; Start 07/29/18 at 08:00 Albuterol (Ventolin Hfa) 2 puff Q4H RESP THERAPY PRN INH WHEEZING; Start 07/29/18 at 09:00 Miscellaneous Information 1 ea NOTE XX ; Start 07/29/18 at 07:00 Glucose (Glutose) 15 gm Q15M PRN PO DECREASED GLUCOSE; Start 07/29/18 at 07:00 Glucose (Glutose) 22.5 gm Q15M PRN PO DECREASED GLUCOSE; Start 07/29/18 at 07:00 Dextrose (D50w Syringe) 25 ml Q15M PRN IV DECREASED GLUCOSE Last administered on 08/24/18at 07:58; Admin Dose 25 ML; Start 07/29/18 at 07:00 Dextrose (D50w Syringe) 50 ml Q15M PRN IV DECREASED GLUCOSE; Start 07/29/18 at 07:00 Glucagon (Glucagen) 1 mg Q15M PRN IM DECREASED GLUCOSE; Start 07/29/18 at 07:00 Glucose (Glutose) 15 gm Q15M PRN BUCCAL DECREASED GLUCOSE; Start 07/29/18 at 07:00 Alprazolam (Xanax) 0.25 mg Q8H PRN PO ANXIETY Last administered on 08/19/18 00:10; Admin Dose 0.25 MG; Start 07/29/18 at 12:30 Polyethylene Glycol (Miralax) 17 gm DAILY PO Last administered on 08/27/18 08:17; Admin Dose 17 GM; Start 07/29/18 at 12:30 Docusate Sodium (Colace) 100 mg BID PO Last administered on 08/26/18 20:49; Admin Dose 100 MG; Start 07/31/18 at 21:00 Magnesium Hydroxide (Milk Of Mag) 30 ml Q12H PRN PO STOMACH UPSET/CRAMPING Last administered on 07/31/18 21:28; Admin Dose 30 ML; Start 07/31/18 at 20:00 Al Hydrox/Mg Hydrox/Simethicone (Mag-Al Plus) 30 ml Q6H PRN PO GASTROINTESTINAL UPSET Last administered on 08/16/18 23:45; Admin Dose 30 ML; Start 08/03/18 at 17:30 Insulin Glargine (Lantus) 8 units DAILY@2000 SC Last administered on 08/26/18 20:51; Admin Dose 8 UNITS; Start 08/09/18 at 20:00 Albuterol/ Ipratropium (Duoneb) 3 ml Q2H RESP THERAPY PRN HHN sob Last administered on 08/19/18 03:28; Admin Dose 3 ML; Start 08/14/18 at 12:00 Diltiazem HCl (Cardizem Iv) 5 mg Q4 PRN IV HR>70 for Cardiac CTA Last administered on 08/19/18 03:50; Admin Dose 5 MG; Start 08/17/18 at 11:30 Lorazepam (Ativan) 1 mg Q8H PRN IV ANXIETY Last administered on 08/20/18 12:39; Admin Dose 1 MG; Start 08/17/18 at 15:30 Epoetin Glenn-epbx (Retacrit (Non-Esrd)) 20,000 unit TuThSa@1700 SC Last administered on 08/25/18 17:33; Admin Dose 20,000 UNIT; Start 08/18/18 at 17:00 Simethicone (Mylicon) 160 mg Q6H PRN PO DISTENSION/GAS/BLOATING Last administ ered on 08/18/18 08:49; Admin Dose 160 MG; Start 08/17/18 at 20:00 Propofol 100 ml @ 1.568 mls/ hr Q12H IV Last administered on 08/27/18 08:28; Admin Dose 3.136 MLS/HR; Start 08/19/18 at 09:30 Norepinephrine 250 ml @ 1.875 mls/ hr TITRATE IV Last administered on 08/20/18 08:57; Admin Dose 9.375 MLS/HR; Start 08/19/18 at 10:30 Insulin Aspart (Novolog Insulin Pen) NOVOLOG *MODERATE* ALGORI... Q4 SC Last administered on 08/27/18 01:40; Admin Dose 2 UNIT; Start 08/20/18 at 01:00 Lansoprazole (Prevacid) 30 mg DAILY@06 NGT Last administered on 08/27/18 06:19; Admin Dose 30 MG; Start 08/21/18 at 06:00 Piperacillin Sod/ Tazobactam Sod 100 ml @ 200 mls/hr Q8 IVPB Last administered on 08/27/18at 13:10; Admin Dose 200 MLS/HR; Start 08/22/18 at 22:00 Enoxaparin Sodium (Lovenox) 50 mg DAILY SC Last administered on 08/27/18 08:18; Admin Dose 50 MG; Start 08/24/18 at 09:00 Metoprolol Tartrate (Lopressor) 25 mg BID PO Last administered on 08/26/18 07:51; Admin Dose 25 MG; Start 08/23/18 at 21:00 Fentanyl 100 ml @ 2.5 mls/hr TITRATE IV Last administered on 08/26/18 09:36; Admin Dose 2.5 MLS/HR; Start 08/26/18 at 09:00 Vancomycin HCl (Vanco Iv Per Pharmacy) VANCOMYCIN PER PHARMACY PER PROTOCOL XX ; Start 08/26/18 at 14:30 Vancomycin HCl 100 ml @ 100 mls/hr Q36H IVPB ; Start 08/28/18 at 04:00 Sodium Bicarbonate 100 meq/Dextrose/ Sodium Chloride 1,000 ml @ 100 mls/hr Q10H IV Last administered on 08/27/18at 13:35; Admin Dose 100 MLS/HR; Start 08/27/18 at 13:00 NATY LUJAN Aug 27, 2018 16:05
--- NOTE | 2018-08-27 18:13 | QN ---
Documentation Comment Pt remains comatose and on a ventilator. No sign of improvement so far. PDL1 and NTRK assays are pending but she is in no condition to have chemotheray treatment or surgical debulking. The son has not yet made a decision about re-intubation if she is extubated. Nonetheless, prognosis is very poor. TUAN BARRON MD Aug 27, 2018 18:13
[2018-08-27] MEDS: DOCUSATE SODIUM 10 MG/ML (10ML CUP) NGT SCH (20:25)
[2018-08-27] MEDS: INSULIN GLARGINE [LANTus] (100 UNITS/ML) SYG SC SCH (20:26)
[2018-08-27] MEDS: ATORVASTATIN 20 MG TAB PO SCH (20:54)
[2018-08-28] VITALS (50 sets, daily range): BP systolic 69–146; BP diastolic 45–84; PULSE 55–97; RESP 9–38
[2018-08-28] MEDS: SODIUM BICARBONATE (IV ADD) 100 MEQ in DEXTROSE 5%-0.45% NACL 900 ML IV SCH ×3 (00:31→13:59)
[2018-08-28] MEDS: INSULIN ASPART [NOVOLOG] 3 ML PEN SC SCH ×6 (00:38→20:56)
[2018-08-28] MEDS: ACCU-CHEK XX SCH (02:00)
[2018-08-28] MEDS ORDERED: VANCOMYCIN 500 MG (PMX) 100 ML IVPB SCH (04:00)
[2018-08-28] MEDS: LEVOTHYROXINE 50 MCG TAB PO SCH (06:25)
[2018-08-28] MEDS: PIPER-TAZO 3.375 GM IV (PMX) 100 ML IVPB SCH ×3 (06:25→22:00)
[2018-08-28] MEDS: LANSOPRAZOLE 30 MG CAP NGT SCH (06:25)
[2018-08-28] MEDS ORDERED: POTASSIUM CHLORIDE 100 ML IVPB ONE (06:30)
--- NOTE | 2018-08-28 08:15 | PN ---
DATE: 08/28/2018 SUBJECTIVE: The patient remains critically ill on full ventilatory support. The patient's urinary o utput has been marginal. No other acute events noted. OBJECTIVE: VITAL SIGNS: Blood pressure is 121/60, respirations 24, pulse 91, temperature 98.7. HEENT: Head is normocephalic. NECK: Supple. HEART: Regular rate. LUNGS: Show diminished breath sounds at the base. ABDOMEN: Soft, nontender to palpation without rebound or guarding. EXTREMITIES: Negative for clubbing, cyanosis. Positive edema. DERMATOLOGIC: No rashes. MUSCULOSKELETAL: No joint effusion. NEUROLOGIC: No change in exam. MEDICATIONS: Have been reviewed. LABORATORY DATA: Has been reviewed. IMAGING STUDIES: Have been reviewed. MICROBIOLOGY: Has been reviewed. ASSESSMENT AND PLAN: 1. Nonoliguric acute kidney injury on top of chronic kidney disease with previous baseline creatinin e around 1.4 mg/dL. Etiology of acute kidney injury is secondary to acute tubular necrosis due to se psis, hemodynamics. The patient remains in injury phase of acute tubular necrosis as renal function continues to decline. At this point, will continue current treatment plan, supportive care, renally dose all meds, no immediate need for renal placement therapy. 2. Hypokalemia. We will replete with potassium chloride. 3. Mixed acid base disorder. The patient has a metabolic acidosis and respiratory alkalosis. Will continue to monitor. 4. Anemia. Monitor hemoglobin and hematocrit levels. 6. Mineral bone disorder. Monitor calcium and phosphorus levels. 7. Ventilatory dependent respiratory failure. Vent settings and ABG was reviewed. Continue to [place]. 8. Pleural effusion, status post Stafford catheter placement. Continue to monitor and drain. 9. Coronary artery disease. Continue medical management. 10. Diabetes. Continue current insulin regimen. 11. Hypothyroidism. Continue Synthroid. 12. Metastatic carcinosarcoma of the uterus. Continue to monitor. Follow up with oncology. 13. Sepsis, status post shock. Patient is completing antibiotic regimen. 14. Encephalopathy, etiology is toxic metabolic. 15. Status post cardiac arrest. Dictated By: JACOB BROCK DO NR/NTS Conf#: [id number] DID#: [id number] CC: TAN MAIER MD;*EndCC*
[2018-08-28] MEDS: METOPROLOL 25 MG TAB PO SCH ×2 (08:29→20:54)
[2018-08-28] MEDS: DOCUSATE SODIUM 10 MG/ML (10ML CUP) NGT SCH ×2 (08:29→20:54)
[2018-08-28] MEDS: ASPIRIN (EC) 81 MG TAB PO SCH (08:29)
[2018-08-28] MEDS: POLYETHYLENE GLYCOL 17 GM PACKET PO SCH (08:29)
[2018-08-28] MEDS: CYANOCOBALAMIN 100 MCG TAB PO SCH (08:30)
[2018-08-28] MEDS: CLOPIDOGREL 75 MG TAB PO SCH (08:30)
[2018-08-28] MEDS: ENOXAPARIN 60 MG/0.6 ML SYG SC SCH (08:33)
--- NOTE | 2018-08-28 08:37 | CONS ---
Consult Date/Type/Reason Admit Date/Time Jul 29, 2018 at 06:16 Initial Consult Date 08/10/18 Requesting Provider: SANDI MURDOCK NP Date/Time of Note DATE: 08/28/18 TIME: 08:35 Subjective NO acute events - pt stable - off pressors - now off sedation, plan for weaning trial today family at bedside - awae of care. ROS: No fever, no chills, no nausea, no vomiting, no diarrhea/constipation - per nurse, chronic SOB Objective Vitals Vital Signs Date Temp Pulse Resp B/P (MAP) Pulse Ox O2 O2 Flow FiO2 Time Delivery Rate 08/28/18 91 24 121/60 100 Mechanical 06:00 (80) Ventilator 08/28/18 30 05:46 08/28/18 98.7 04:00 Intake and Output 08/27/18 08/27/18 08/28/18 1515:00 23:00 07:00 IntakeIntake Total 535.934 ml 1400.216 ml 1125.1 ml OutputOutput Total 885 ml 140 ml 105 ml BalanceBalance -349.066 ml 1260.216 ml 1020.1 ml Exam General: WN/WD/NAD, AOx 0 HEENT: Unicetric/atraumatic/EOMI (does not follow commands) NECK: JVD elevated, no thyromegaly - itubated, GNT in Lymph: no lymphadenopathy HEART: regular with no S3, II/ systolic murmur at apex LUNGS: Coarse sounds ABD: soft, NT, ND, +BS : Intact Neuro: non focal SKIN: chronic changes EXT: trace edema, wounds Results/Medications Result Diagram: 08/28/18 0449 08/28/18 0457 Results 24 hrs Laboratory Tests Test 08/27/18 11:00 08/27/18 12:41 08/27/18 16:49 08/27/18 20:24 Blood Gas Specimen Blood arterial Source Arterial Blood 08/27/2018 10:56:26 Date Drawn AM Arterial Blood pH 7.388 (Temp corrected) Arterial Blood 23.8 L pCO2 (Temp correct) Arterial Blood pO2 98.8 (Temp corrected) Arterial Blood 14.0 L HCO3 Arterial Blood -9.5 L Base Excess Arterial Blood 97.6 Oxygen Saturation Quinten Test ACCEPTAB Arterial Blood Gas Right Radial Puncture Site Arterial 0.1 Blood Carboxyhemog lobin Arterial Blood 0.3 Methemoglobin Blood Gas A-a O2 87.1 H Differential Oxyhemoglobin 97.2 Percent Blood Gas 37.0 Temperature Blood Gas Actual 32 Respiration Rate Blood Gas Modality VENT - CPAP FiO2 30.0 Blood Gas Low PEEP 5.0 Setting Blood Gas Pressure 10 Support Blood Gas Notified TM Whom Blood Gas Notified 08/27/2018 11:06:11 Time AM Bedside Glucose 118 156 160 Test 08/28/18 00:36 08/28/18 04:49 08/28/18 04:57 08/28/18 05:06 Bedside Glucose 202 166 White Blood Count 14.6 H Red Blood Count 3.05 L Hemoglobin 8.6 L Hematocrit 26.6 L Mean Corpuscular 87.2 Volume Mean Corpuscular 28.2 L Hemoglobin Mean Corpuscular 32.3 Hemoglobin Concent Red Cell 18.4 H Distribution Width Platelet Count 515 H Mean Platelet 10.6 H Volume Immature 5.400 H Granulocytes % Neutrophils % Segmented 62 Neutrophils % (Manual) Band Neutrophils % 3 (Manual) Lymphocytes % Lymphocytes % 10 L (Manual) Monocytes % Monocytes % 7 (Manual) Eosinophils % Eosinophils % 13 H (Manual) Basophils % Basophils % 1 (Manual) Metamyelocytes % 1 H (manual) Myelocytes % 2 H (Manual) Nucleated Red 18 H Blood Cells % Immature 0.780 H Granulocytes # Neutrophils # Neutrophils # 9.1 H (Manual) Band Neutrophils # 0.4 Lymphocytes 1.4 (Manual) Lymphocytes # Monocytes # Monocytes # 1.0 H (Manual) Eosinophils # Basophils # Basophils # 0.1 H (Manual) Metamyelocytes # 0.1 H Myelocytes # 0.2 H Nucleated Red Blood Cells # Platelet Estimate NORMAL Giant Platelets 5 H Polychromasia 2+ Poikilocytosis 2+ Anisocytosis 1+ Macrocytosis 1+ Sodium Level 143 Potassium Level 3.4 L Chloride Level 115 H Carbon Dioxide 19 L Level Anion Gap 9 Blood Urea 51 H Nitrogen Creatinine 2.32 H Est Glomerular 21 L Filtrat Rate mL/min Glucose Level 181 Calcium Level 8.3 L Phosphorus Level 4.0 Magnesium Level 2.6 H Test 08/28/18 08:23 Bedside Glucose 174 Home Meds Active Scripts Magnesium Oxide* (Mag-Oxide*) 400 Mg Tablet, 400 MG PO BID for 3 Days, #10 TAB Prov:FERNANDO YANCEY MD 07/08/18 Lactobacillus Rhamnosus GG (Culturelle) 1 Each Capsule, 1 CAP PO BID for 14 Days, #30 CAP Prov:FERNANDO YANCEY MD 07/08/18 Acetaminophen* (Tylenol*) 325 Mg Tablet, 650 MG PO Q6H PRN for .PAIN 1-3 OR TEMP for 10 Days, #10 TAB Prov:FERNANDO YANCEY MD 07/08/18 Lisinopril* (Lisinopril*) 5 Mg Tablet, 2.5 MG PO DAILY for 15 Days, #15 TAB Prov:FERNANDO YANCEY MD 07/08/18 Sulfamethoxazole/Trimethoprim (Sulfamethoxazole-Tmp Ds Tablet) 1 Each Tablet, 1 TAB PO BID for 5 Days, #10 TAB Prov:FERNANDO YANCEY MD 07/08/18 Reported Medications Sodium Bicarbonate* (Sodium Bicarbonate*) 650 Mg Tablet, 650 MG PO TID, TAB 07/05/18 Propylene Glycol-Peg 400 (Systane 0.3-0.4% Eye Drops) 0.3-0.4 % - 30 Ml Drops, 1 DROP BOTH EYES Q4H PRN for DRY EYES, #1 BOTTLE 07/05/18 Pantoprazole* (Protonix*) 40 Mg Tablet.dr, 40 MG PO QAM, TAB 07/05/18 Ondansetron Hcl* (Zofran*) 8 Mg Tablet, 8 MG PO Q6H PRN for NAUSEA AND OR VOMITING, TAB 07/05/18 Metoprolol Succinate* (Toprol XL*) 25 Mg Tab.sr.24h, 25 MG PO BID, #30 TAB 07/05/18 Metformin* (Glucophage*) 500 Mg Tab, 500 MG PO WITH BREAKFAST, #30 TAB 07/05/18 Levothyroxine Sodium* (Synthroid*) 50 Mcg Tablet, 50 MCG PO BEFORE BREAKFAST, #30 TAB 07/05/18 Hydrocodone/Acetaminophen ([place] 5-325 Tablet) 1 Each Tablet, 1 EACH PO Q6 PRN for PAIN, TAB 07/05/18 [place]-3 Fatty Acids/Fish Oil (Fish Oil 1,000 mg Capsule) 1 Each Capsule, 1 EACH PO DAILY, CAP 07/05/18 Cyanocobalamin* (Vitamin B-12*) 50 Mcg Tablet, 50 MCG PO DAILY, TAB 07/05/18 Clopidogrel Bisulfate (Clopidogrel) 75 Mg Tablet, 75 MG PO DAILY, #30 TAB 07/05/18 Atorvastatin Calcium* (Atorvastatin Calcium*) 20 Mg Tablet, 20 MG PO QHS, #30 TAB 07/05/18 Aspirin* (Aspirin* EC) 81 Mg Tablet.dr, 81 MG PO DAILY, TAB 07/05/18 Artificial Tears* ([place] Oint*) 3.5 Gm Oint, 1 APPLIC BOTH EYES Q1H PRN for DRY EYES, #1 TUB 07/05/18 Albuterol Sulfate (Proair Respiclick) 90 Mcg Aer.pow.ba, 2 PUFFS INHALATION Q4 PRN for WHEEZING, BOTTLE 07/05/18 Medications Current Medications IV Flush (NS 3 ml) 3 ml PER PROTOCOL IV Last administered on 08/05/18at 09:07; Admin Dose 3 ML; Start 07/29/18 at 06:30 Ondansetron HCl (Zofran Inj) 4 mg Q6H PRN IV NAUSEA/VOMITING Last administered on 08/18/18at 18:34; Admin Dose 4 MG; Start 07/29/18 at 06:30 Acetaminophen/ Hydrocodone Bitart ([place] (5/325)) 1 tab Q6H PRN PO .MOD PAIN 4- 6 Last administered on 08/19/18 03:42; Admin Dose 1 TAB; Start 07/29/18 at 06:30 Diagnostic Test (Pha) (Accu-Chek) 1 ea 02 XX Last administered on 08/27/18at 01:38; Admin Dose 1 EA; Start 07/30/18 at 02:00 Acetaminophen (Tylenol Tab) 650 mg Q6H PRN PO .PAIN 1-3 OR TEMP Last administered on 08/17/18 05:46; Admin Dose 650 MG; Start 07/29/18 at 07:00 Eye Lubricant (Akwa Oint) 1 applic Q1H PRN BOTH EYES DRY EYES; Start 07/29/18 at 08:00 Aspirin (Halfprin) 81 mg DAILY PO Last administered on 08/27/18 08:16; Admin Dose 81 MG; Start 07/29/18 at 09:00 Atorvastatin Calcium (Lipitor) 20 mg QHS PO Last administered on 08/27/18at 20:54; Admin Dose 20 MG; Start 07/29/18 at 21:00 Clopidogrel Bisulfate (plaVIX) 75 mg DAILY PO Last administered on 08/27/18at 08:16; Admin Dose 75 MG; Start 07/29/18 at 09:00 Cyanocobalamin (Vitamin B12) 50 mcg DAILY PO Last administered on 08/27/18at 08:18; Admin Dose 50 MCG; Start 07/29/18 at 09:00 Levothyroxine Sodium (Synthroid) 50 mcg BEFORE BREAKFAST PO Last administered on 08/28/18at 06:25; Admin Dose 50 MCG; Start 07/29/18 at 07:00 Polyethyl Glycol/ Propylene Glycol (Systane 0.3-0.4% Eye Drops) 1 drop Q4H PRN BOTH EYES DRY EYES; Start 07/29/18 at 08:00 Albuterol (Ventolin Hfa) 2 puff Q4H RESP THERAPY PRN INH WHEEZING; Start at 09:00 Miscellaneous Information 1 ea NOTE XX ; Start 07/29/18 at 07:00 Glucose (Glutose) 15 gm Q15M PRN PO DECREASED GLUCOSE; Start 07/29/18 at 07:00 Glucose (Glutose) 22.5 gm Q15M PRN PO DECREASED GLUCOSE; Start 07/29/18 at 07:00 Dextrose (D50w Syringe) 25 ml Q15M PRN IV DECREASED GLUCOSE Last administered on 08/24/18at 07:58; Admin Dose 25 ML; Start 07/29/18 at 07:00 Dextrose (D50w Syringe) 50 ml Q15M PRN IV DECREASED GLUCOSE; Start 07/29/18 at 07:00 Glucagon (Glucagen) 1 mg Q15M PRN IM DECREASED GLUCOSE; Start 07/29/18 at 07:00 Glucose (Glutose) 15 gm Q15M PRN BUCCAL DECREASED GLUCOSE; Start 07/29/18 at 07:00 Alprazolam (Xanax) 0.25 mg Q8H PRN PO ANXIETY Last administered on 08/19/18at 00:10; Admin Dose 0.25 MG; Start 07/29/18 at 12:30 Polyethylene Glycol (Miralax) 17 gm DAILY PO Last administered on 08/27/18at 08:17; Admin Dose 17 GM; Start 07/29/18 at 12:30 Magnesium Hydroxide (Milk Of Mag) 30 ml Q12H PRN PO STOMACH UPSET/CRAMPING Last administered on 07/31/18 21:28; Admin Dose 30 ML; Start 07/31/18 at 20:00 Al Hydrox/Mg Hydrox/Simethicone (Mag-Al Plus) 30 ml Q6H PRN PO GASTROINTESTINAL UPSET Last administered on 08/16/18 23:45; Admin Dose 30 ML; Start 08/03/18 at 17:30 Insulin Glargine (Lantus) 8 units DAILY@2000 SC Last administered on 08/27/18 20:26; Admin Dose 8 UNITS; Start 08/09/18 at 20:00 Albuterol/ Ipratropium (Duoneb) 3 ml Q2H RESP THERAPY PRN HHN sob Last ad ministered on 08/19/18 03:28; Admin Dose 3 ML; Start 08/14/18 at 12:00 Diltiazem HCl (Cardizem Iv) 5 mg Q4 PRN IV HR>70 for Cardiac CTA Last administered on 08/19/18 03:50; Admin Dose 5 MG; Start 08/17/18 at 11:30 Lorazepam (Ativan) 1 mg Q8H PRN IV ANXIETY Last administered on 08/20/18 12:39; Admin Dose 1 MG; Start 08/17/18 at 15:30 Epoetin Glenn-epbx (Retacrit (Non-Esrd)) 20,000 unit TuThSa@1700 SC Last administered on 08/25/18 17:33; Admin Dose 20,000 UNIT; Start 08/18/18 at 17:00 Simethicone (Mylicon) 160 mg Q6H PRN PO DISTENSION/GAS/BLOATING Last administered on 08/18/18 08:49; Admin Dose 160 MG; Start 08/17/18 at 20:00 Propofol 100 ml @ 1.568 mls/ hr Q12H IV Last administered on 08/27/18 22:21; Admin Dose 7.841 MLS/HR; Start 08/19/18 at 09:30 Norepinephrine 250 ml @ 1.875 mls/ hr TITRATE IV Last administered on 08/20/18 08:57; Admin Dose 9.375 MLS/HR; Start 08/19/18 at 10:30 Insulin Aspart (Novolog Insulin Pen) NOVOLOG *MODERATE* ALGORI... Q4 SC Last administered on 08/28/18 05:08; Admin Dose 2 UNIT; Start 08/20/18 at 01:00 Lansoprazole (Prevacid) 30 mg DAILY@06 NGT Last administered on 08/28/18 06:25; Admin Dose 30 MG; Start 08/21/18 at 06:00 Piperacillin Sod/ Tazobactam Sod 100 ml @ 200 mls/hr Q8 IVPB Last administered on 08/28/18 06:25; Admin Dose 200 MLS/HR; Start 08/22/18 at 22:00 Enoxaparin Sodium (Lovenox) 50 mg DAILY SC Last administered on 08/27/18 08:18; Admin Dose 50 MG; Start 08/24/18 at 09:00 Metoprolol Tartrate (Lopressor) 25 mg BID PO Last administered on 08/26/18at 07:51; Admin Dose 25 MG; Start 08/23/18 at 21:00 Fentanyl 100 ml @ 2.5 mls/hr TITRATE IV Last administered on 08/26/18at 09:36; Admin Dose 2.5 MLS/HR; Start 08/26/18 at 09:00 Vancomycin HCl (Vanco Iv Per Pharmacy) VANCOMYCIN PER PHARMACY PER PROTOCOL XX ; Start 08/26/18 at 14:30 Vancomycin HCl 100 ml @ 100 mls/hr Q36H IVPB Last administered on 08/28/18at 04:40; Admin Dose 100 MLS/HR; Start 08/28/18 at 04:00 Sodium Bicarbonate 100 meq/Dextrose/ Sodium Chloride 1,000 ml @ 100 mls/hr Q10H IV Last administered on 08/28/18at 00:31; Admin Dose 100 MLS/HR; Start 08/27/18 at 13:00 Docusate Sodium (Colace Liquid Cup) 100 mg BID NGT Last administered on 08/27/18at 20:25; Admin Dose 100 MG; Start 08/27/18 at 21:00 Miscellaneous Information (*Order Clarification Bulletin) MEDICATION REQUIRES CLARIFICATI... Q8H XX ; Start 08/28/18 at 08:00 Assessment/Plan Hospital Course (Demo Recall) 1.Preop-neg trop multiple times. NL EF by echo. Lexiscan with possible distal anterior ischemia. NL EF. Now with positive troponin's s/p cardiopulmonary a rrest - CTA planned but on hold for now pending family meeting on Monday - CTA on hold now 2.abnl ecg-ECG today with inferior ST elevation but with normal concavity and Q's isolated to lead 3 .. NL EF by echo this admit. multiple negative troponin and no chest pain prior to arrest - now troponin down - no active CP noted - no CP noted 3.Uterine cancer - stable urine output - stable output Cr 2.32 4.DM - keep euglycemic. 5.Hoth-resolved off of pressors - improved now. Stable. Con't to wean. 6.HL 7.PLeural effusion-L sided large, malignant by cytology 8. Resp failure s/p intubation - not able to wean now. Pulmonary team follows. Daily weaning trials. 9. NSTEMI-likely type 2 demand infarct - CTA to define anatomy, but given pt being unstable - will hold for now TUAN LANGLEY MD Aug 28, 2018 08:37
--- NOTE | 2018-08-28 09:51 | CONS ---
Consult Date/Type/Reason Admit Date/Time Jul 29, 2018 at 06:16 Initial Consult Date 08/15/18 Type of Consult Pulmonary Requesting Provider: SANDI MURDOCK NP Date/Time of Note DATE: 08/28/18 TIME: 09:45 Subjective Repeat drainage of right pleural effusion today with Vacutainer minimal output less than 200 cc. However chest x-ray shows moderate right pneumothorax. Patient appears comfortable on mechanical ventilation at present. Objective Vital Signs Date Temp Pulse Resp B/P (MAP) Pulse Ox O2 O2 Flow FiO2 Time Delivery Rate 08/28/18 65 34 100 30 09:24 08/28/18 121/60 Mechanical 06:00 (80) Ventilator 08/28/18 98.7 04:00 Intake and Output 08/27/18 08/27/18 08/28/18 1515:00 23:00 07:00 IntakeIntake Total 535.934 ml 1400.216 ml 1125.1 ml OutputOutput Total 885 ml 140 ml 105 ml BalanceBalance -349.066 ml 1260.216 ml 1020.1 ml Exam GENERAL: Elderly appearing lady orally intubated on mechanical ventilation VITAL SIGNS: per chart NECK: Supple. No JVD or lymphadenopathy. CARDIAC EXAM: S1, S2. No added sounds or murmurs. CHEST: Diminished air entry right side greater than left ABDOMEN: Soft, nontender. No guarding or rebound. EXTREMITIES: No cyanosis, clubbing or edema. NEUROLOGIC: Generalized weakness. No focal deficits Vent Setting Ventilator Support Mode: CPAP, PS Fraction of Inspired Oxygen pe: 30 Positive End Expiratory Pressu: 5.0 Results/Medications Result Diagram: 08/28/18 0449 08/28/18 0457 Results 24 hrs Laboratory Tests Test 08/27/18 11:00 08/27/18 12:41 08/27/18 16:49 08/27/18 20:24 Blood Gas Specimen Blood arterial Source Arterial Blood 08/27/2018 10:56:26 Date Drawn AM Arterial Blood pH 7.388 (Temp corrected) Arterial Blood 23.8 L pCO2 (Temp correct) Arterial Blood pO2 98.8 (Temp corrected) Arterial Blood 14.0 L HCO3 Arterial Blood -9.5 L Base Excess Arterial Blood 97.6 Oxygen Saturation Quinten Test ACCEPTAB Arterial Blood Gas Right Radial Puncture Site Arterial 0.1 Blood Carboxyhemog lobin Arterial Blood 0.3 Methemoglobin Blood Gas A-a O2 87.1 H Differential Oxyhemoglobin 97.2 Percent Blood Gas 37.0 Temperature Blood Gas Actual 32 Respiration Rate Blood Gas Modality VENT - CPAP FiO2 30.0 Blood Gas Low PEEP 5.0 Setting Blood Gas Pressure 10 Support Blood Gas Notified TM Whom Blood Gas Notified 08/27/2018 11:06:11 Time AM Bedside Glucose 118 156 160 Test 08/28/18 00:36 08/28/18 04:49 08/28/18 04:57 08/28/18 05:06 Bedside Glucose 202 166 White Blood Count 14.6 H Red Blood Count 3.05 L Hemoglobin 8.6 L Hematocrit 26.6 L Mean Corpuscular 87.2 Volume Mean Corpuscular 28.2 L Hemoglobin Mean Corpuscular 32.3 Hemoglobin Concent Red Cell 18.4 H Distribution Width Platelet Count 515 H Mean Platelet 10.6 H Volume Immature 5.400 H Granulocytes % Neutrophils % Segmented 62 Neutrophils % (Manual) Band Neutrophils % 3 (Manual) Lymphocytes % Lymphocytes % 10 L (Manual) Monocytes % Monocytes % 7 (Manual) Eosinophils % Eosinophils % 13 H (Manual) Basophils % Basophils % 1 (Manual) Metamyelocytes % 1 H (manual) Myelocytes % 2 H (Manual) Nucleated Red 18 H Blood Cells % Immature 0.780 H Granulocytes # Neutrophils # Neutrophils # 9.1 H (Manual) Band Neutrophils # 0.4 Lymphocytes 1.4 (Manual) Lymphocytes # Monocytes # Monocytes # 1.0 H (Manual) Eosinophils # Basophils # Basophils # 0.1 H (Manual) Metamyelocytes # 0.1 H Myelocytes # 0.2 H Nucleated Red Blood Cells # Platelet Estimate NORMAL Giant Platelets 5 H Polychromasia 2+ Poikilocytosis 2+ Anisocytosis 1+ Macrocytosis 1+ Sodium Level 143 Potassium Level 3.4 L Chloride Level 115 H Carbon Dioxide 19 L Level Anion Gap 9 Blood Urea 51 H Nitrogen Creatinine 2.32 H Est Glomerular 21 L Filtrat Rate mL/min Glucose Level 181 Calcium Level 8.3 L Phosphorus Level 4.0 Magnesium Level 2.6 H Test 08/28/18 08:23 Bedside Glucose 174 Medications Current Medications IV Flush (NS 3 ml) 3 ml PER PROTOCOL IV Last administered on 08/05/18at 09:07; Admin Dose 3 ML; Start 07/29/18 at 06:30 Ondansetron HCl (Zofran Inj) 4 mg Q6H PRN IV NAUSEA/VOMITING Last administered on 08/18/18 18:34; Admin Dose 4 MG; Start 07/29/18 at 06:30 Acetaminophen/ Hydrocodone Bitart ([place] (5/325)) 1 tab Q6H PRN PO .MOD PAIN 4- 6 Last administered on 08/19/18 03:42; Admin Dose 1 TAB; Start 07/29/18 at 06:30 Diagnostic Test (Pha) (Accu-Chek) 1 ea 02 XX Last administered on 08/27/18 01:38; Admin Dose 1 EA; Start 07/30/18 at 02:00 Acetaminophen (Tylenol Tab) 650 mg Q6H PRN PO .PAIN 1-3 OR TEMP Last administ ered on 08/17/18 05:46; Admin Dose 650 MG; Start 07/29/18 at 07:00 Eye Lubricant (Akwa Oint) 1 applic Q1H PRN BOTH EYES DRY EYES; Start 07/29/18 at 08:00 Aspirin (Halfprin) 81 mg DAILY PO Last administered on 08/28/18 08:29; Admin Dose 81 MG; Start 07/29/18 at 09:00 Atorvastatin Calcium (Lipitor) 20 mg QHS PO Last administered on 08/27/18 20:54; Admin Dose 20 MG; Start 07/29/18 at 21:00 Clopidogrel Bisulfate (plaVIX) 75 mg DAILY PO Last administered on 08/28/18 08:30; Admin Dose 75 MG; Start 07/29/18 at 09:00 Cyanocobalamin (Vitamin B12) 50 mcg DAILY PO Last administered on 08/28/18 08:30; Admin Dose 50 MCG; Start 07/29/18 at 09:00 Levothyroxine Sodium (Synthroid) 50 mcg BEFORE BREAKFAST PO Last administered on 08/28/18 06:25; Admin Dose 50 MCG; Start 07/29/18 at 07:00 Polyethyl Glycol/ Propylene Glycol (Systane 0.3-0.4% Eye Drops) 1 drop Q4H PRN BOTH EYES DRY EYES; Start 07/29/18 at 08:00 Albuterol (Ventolin Hfa) 2 puff Q4H RESP THERAPY PRN INH WHEEZING; Start 07/29/18 at 09:00 Miscellaneous Information 1 ea NOTE XX ; Start 07/29/18 at 07:00 Glucose (Glutose) 15 gm Q15M PRN PO DECREASED GLUCOSE; Start 07/29/18 at 07:00 Glucose (Glutose) 22.5 gm Q15M PRN PO DECREASED GLUCOSE; Start 07/29/18 at 07:00 Dextrose (D50w Syringe) 25 ml Q15M PRN IV DECREASED GLUCOSE Last administered on 08/24/18at 07:58; Admin Dose 25 ML; Start 07/29/18 at 07:00 Dextrose (D50w Syringe) 50 ml Q15M PRN IV DECREASED GLUCOSE; Start 07/29/18 at 07:00 Glucagon (Glucagen) 1 mg Q15M PRN IM DECREASED GLUCOSE; Start 07/29/18 at 07:00 Glucose (Glutose) 15 gm Q15M PRN BUCCAL DECREASED GLUCOSE; Start 07/29/18 at 07:00 Alprazolam (Xanax) 0.25 mg Q8H PRN PO ANXIETY Last administered on 08/19/18at 00:10; Admin Dose 0.25 MG; Start 07/29/18 at 12:30 Polyethylene Glycol (Miralax) 17 gm DAILY PO Last administered on 08/28/18 08:29; Admin Dose 17 GM; Start 07/29/18 at 12:30 Magnesium Hydroxide (Milk Of Mag) 30 ml Q12H PRN PO STOMACH UPSET/CRAMPING Last administered on 07/31/18at 21:28; Admin Dose 30 ML; Start 07/31/18 at 20:00 Al Hydrox/Mg Hydrox/Simethicone (Mag-Al Plus) 30 ml Q6H PRN PO GASTROINTESTINAL UPSET Last administered on 08/16/18at 23:45; Admin Dose 30 ML; Start 08/03/18 at 17:30 Insulin Glargine (Lantus) 8 units DAILY@2000 SC Last administered on 08/27/18at 20:26; Admin Dose 8 UNITS; Start 08/09/18 at 20:00 Albuterol/ Ipratropium (Duoneb) 3 ml Q2H RESP THERAPY PRN HHN sob Last administered on 08/19/18at 03:28; Admin Dose 3 ML; Start 08/14/18 at 12:00 Diltiazem HCl (Cardizem Iv) 5 mg Q4 PRN IV HR>70 for Cardiac CTA Last administered on 08/19/18 03:50; Admin Dose 5 MG; Start 08/17/18 at 11:30 Lorazepam (Ativan) 1 mg Q8H PRN IV ANXIETY Last administered on 08/20/18 12:39; Admin Dose 1 MG; Start 08/17/18 at 15:30 Epoetin Glenn-epbx (Retacrit (Non-Esrd)) 20,000 unit TuThSa@1700 SC Last admi nistered on 08/25/18 17:33; Admin Dose 20,000 UNIT; Start 08/18/18 at 17:00 Simethicone (Mylicon) 160 mg Q6H PRN PO DISTENSION/GAS/BLOATING Last administered on 08/18/18 08:49; Admin Dose 160 MG; Start 08/17/18 at 20:00 Propofol 100 ml @ 1.568 mls/ hr Q12H IV Last administered on 08/27/18 22:21; Admin Dose 7.841 MLS/HR; Start 08/19/18 at 09:30 Norepinephrine 250 ml @ 1.875 mls/ hr TITRATE IV Last administered on 08/20/18 08:57; Admin Dose 9.375 MLS/HR; Start 08/19/18 at 10:30 Insulin Aspart (Novolog Insulin Pen) NOVOLOG *MODERATE* ALGORI... Q4 SC Last administered on 08/28/18 08:34; Admin Dose 2 UNIT; Start 08/20/18 at 01:00 Lansoprazole (Prevacid) 30 mg DAILY@06 NGT Last administered on 08/28/18 06:25; Admin Dose 30 MG; Start 08/21/18 at 06:00 Piperacillin Sod/ Tazobactam Sod 100 ml @ 200 mls/hr Q8 IVPB Last administered on 08/28/18 06:25; Admin Dose 200 MLS/HR; Start 08/22/18 at 22:00 Enoxaparin Sodium (Lovenox) 50 mg DAILY SC Last administered on 08/28/18 08:33; Admin Dose 50 MG; Start 08/24/18 at 09:00 Metoprolol Tartrate (Lopressor) 25 mg BID PO Last administered on 08/28/18 08:29; Admin Dose 25 MG; Start 08/23/18 at 21:00 Fentanyl 100 ml @ 2.5 mls/hr TITRATE IV Last administered on 08/26/18 09:36; Admin Dose 2.5 MLS/HR; Start 08/26/18 at 09:00 Vancomycin HCl (Vanco Iv Per Pharmacy) VANCOMYCIN PER PHARMACY PER PROTOCOL XX ; Start 08/26/18 at 14:30 Vancomycin HCl 100 ml @ 100 mls/hr Q36H IVPB Last administered on 08/28/18at 04:40; Admin Dose 100 MLS/HR; Start 08/28/18 at 04:00 Sodium Bicarbonate 100 meq/Dextrose/ Sodium Chloride 1,000 ml @ 100 mls/hr Q10H IV Last administered on 08/28/18 00:31; Admin Dose 100 MLS/HR; Start 08/27/18 at 13:00 Docusate Sodium (Colace Liquid Cup) 100 mg BID NGT Last administered on 08/28/18 08:29; Admin Dose 100 MG; Start 08/27/18 at 21:00 Miscellaneous Information (*Order Clarification Bulletin) MEDICATION REQUIRES CLARIFICATI... Q8H XX ; Start 08/28/18 at 08:00 Assessment/Plan Hospital Course (Demo Recall) Assessment 1. Status post cardiopulmonary arrest 2. Encephalopathy possibly toxic metabolic 3. Status post septic shock, off vasopressors at present. 4. Recurrent right pleural effusion probably metastatic in nature. Large right PTX noted no tamponade physiology at present. 5. Metastatic uterine cancer 6. Metabolic acidosis improved with intravenous bicarbonate Plan 1. Continue mechanical ventilation, 2. Transition Pleurx catheter chest drain to suction if tolerated if not patient will require chest tube. 3. Decrease vasopressors as tolerated, titrate to keep map greater than 65. 4. Overall prognosis very poor patient may not be able to be liberated from mechanical ventilation. Appreciate palliative care recommendations. Family still undecided about reintubation status which I have discussed with them at length. Critical care time 40 minutes. FARHAN VALENTINO MD, [facility] Aug 28, 2018 09:51
--- NOTE | 2018-08-28 12:48 | CONS ---
Assessment/Plan Assessment/Plan Hospital Course (Demo Recall) No events patient tolerates CPAP, no fevers overnight WBC 14.6 platelets 515 BUN 51 creatinine 2.32 Antimicrobials: Vancomycin, Zosyn ALL: Levaquin Indwelling: Endotracheal tube NG tube [place] catheter, femoral triple-lumen catheter, Pleurx Physical examination: Well-developed fragile elderly woman who is in no distress. Head atraumatic normocephalic sclera nonicteric vehicle mucosa dry neck is supple chest rise symmetrical breath sounds diminished bases heart: S1- S2 abdomen soft bowel sounds hypoactive extremities with trace edema Assessment: 1. Persistent leukocytosis 2. Status post asystolic cardiopulmonary arrest requiring intubation 3. Persistent right pleural effusion likely malignant, possibly parapneumonic 4. 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 Acute kidney insufficiency 6. Diabetes 7. Pneumonia 8. Right mastoiditis Plan: Clinically stable, tolerates weaning trials, WBC trending down, continue present care and antibiotics Consultation Date/Type/Reason Admit Date/Time Jul 29, 2018 at 06:16 Initial Consult Date 08/15/18 Type of Consult id Requesting Provider: SANDI MURDOCK NP Date/Time of Note DATE: 08/28/18 TIME: 12:47 Exam/Review of Systems Exam Vitals Vital Signs Date Temp Pulse Resp B/P (MAP) Pulse Ox O2 O2 Flow FiO2 Time Delivery Rate 08/28/18 77 38 100 30 12:14 08/28/18 131/61 11:30 (84) 08/28/18 Mechanical 11:00 Ventilator 08/28/18 97.8 08:00 Intake and Output 08/27/18 08/27/18 08/28/18 1515:00 23:00 07:00 IntakeIntake Total 535.934 ml 1400.216 ml 1125.1 ml OutputOutput Total 885 ml 140 ml 105 ml BalanceBalance -349.066 ml 1260.216 ml 1020.1 ml Results Result Diagram: 08/28/18 0449 08/28/18 0457 Results 24hrs Laboratory Tests Test 08/27/18 16:49 08/27/18 20:24 08/28/18 00:36 08/28/18 04:49 Bedside Glucose 156 160 202 White Blood Count 14.6 H Red Blood Count 3.05 L Hemoglobin 8.6 L Hematocrit 26.6 L Mean Corpuscular 87.2 Volume Mean Corpuscular 28.2 L Hemoglobin Mean Corpuscular 32.3 Hemoglobin Concent Red Cell 18.4 H Distribution Width Platelet Count 515 H Mean Platelet 10.6 H Volume Immature 5.400 H Granulocytes % Neutrophils % Segmented 62 Neutrophils % (Manual) Band Neutrophils % 3 (Manual) Lymphocytes % Lymphocytes % 10 L (Manual) Monocytes % Monocytes % 7 (Manual) Eosinophils % Eosinophils % 13 H (Manual) Basophils % Basophils % 1 (Manual) Metamyelocytes % 1 H (manual) Myelocytes % 2 H (Manual) Nucleated Red 18 H Blood Cells % Immature 0.780 H Granulocytes # Neutrophils # Neutrophils # 9.1 H (Manual) Band Neutrophils # 0.4 Lymphocytes 1.4 (Manual) Lymphocytes # Monocytes # Monocytes # 1.0 H (Manual) Eosinophils # Basophils # Basophils # 0.1 H (Manual) Metamyelocytes # 0.1 H Myelocytes # 0.2 H Nucleated Red Blood Cells # Platelet Estimate NORMAL Giant Platelets 5 H Polychromasia 2+ Poikilocytosis 2+ Anisocytosis 1+ Macrocytosis 1+ Test 08/28/18 04:57 08/28/18 05:06 08/28/18 08:23 08/28/18 11:30 Sodium Level 143 Potassium Level 3.4 L Chloride Level 115 H Carbon Dioxide 19 L Level Anion Gap 9 Blood Urea 51 H Nitrogen Creatinine 2.32 H Est Glomerular 21 L Filtrat Rate mL/min Glucose Level 181 Calcium Level 8.3 L Phosphorus Level 4.0 Magnesium Level 2.6 H Bedside Glucose 166 174 Blood Gas Specimen Blood arterial Source Arterial Blood 08/28/2018 11:36:03 Date Drawn AM Arterial Blood pH 7.413 (Temp corrected) Arterial Blood 29.6 L pCO2 (Temp correct) Arterial Blood pO2 102.4 H (Temp corrected) Arterial Blood 18.5 L HCO3 Arterial Blood -5.1 L Base Excess Arterial Blood 97.8 Oxygen Saturation Quinten Test ACCEPTAB Arterial Blood Gas Right Radial Puncture Site Arterial 0.2 Blood Carboxyhemog lobin Arterial Blood 0.1 Methemoglobin Blood Gas A-a O2 76.7 H Differential Oxyhemoglobin 97.5 Percent Blood Gas 37.0 Temperature Blood Gas Actual 35 Respiration Rate Blood Gas Modality VENT - CPAP FiO2 30.0 Blood Gas Low PEEP 5.0 Setting Blood Gas Pressure 10 Support Blood Gas Notified TM Whom Blood Gas Notified 08/28/2018 11:45:45 Time AM Medications Medication Current Medications IV Flush (NS 3 ml) 3 ml PER PROTOCOL IV Last administered on 08/05/18 09:07; Admin Dose 3 ML; Start 07/29/18 at 06:30 Ondansetron HCl (Zofran Inj) 4 mg Q6H PRN IV NAUSEA/VOMITING Last administered on 08/18/18 18:34; Admin Dose 4 MG; Start 07/29/18 at 06:30 Acetaminophen/ Hydrocodone Bitart ([place] (5/325)) 1 tab Q6H PRN PO .MOD PAIN 4- 6 Last administered on 08/19/18 03:42; Admin Dose 1 TAB; Start 07/29/18 at 06:30 Diagnostic Test (Pha) (Accu-Chek) 1 ea 02 XX Last administered on 08/27/18 01:38; Admin Dose 1 EA; Start 07/30/18 at 02:00 Acetaminophen (Tylenol Tab) 650 mg Q6H PRN PO .PAIN 1-3 OR TEMP Last administered on 08/17/18 05:46; Admin Dose 650 MG; Start 07/29/18 at 07:00 Eye Lubricant (Akwa Oint) 1 applic Q1H PRN BOTH EYES DRY EYES; Start 07/29/18 at 08:00 Aspirin (Halfprin) 81 mg DAILY PO Last administered on 08/28/18 08:29; Admin Dose 81 MG; Start 07/29/18 at 09:00 Atorvastatin Calcium (Lipitor) 20 mg QHS PO Last administered on 08/27/18 20:54; Admin Dose 20 MG; Start 07/29/18 at 21:00 Clopidogrel Bisulfate (plaVIX) 75 mg DAILY PO Last administered on 08/28/18 08:30; Admin Dose 75 MG; Start 07/29/18 at 09:00 Cyanocobalamin (Vitamin B12) 50 mcg DAILY PO Last administered on 08/28/18 08:30; Admin Dose 50 MCG; Start 07/29/18 at 09:00 Levothyroxine Sodium (Synthroid) 50 mcg BEFORE BREAKFAST PO Last administered on 08/28/18 06:25; Admin Dose 50 MCG; Start 07/29/18 at 07:00 Polyethyl Glycol/ Propylene Glycol (Systane 0.3-0.4% Eye Drops) 1 drop Q4H PRN BOTH EYES DRY EYES; Start 07/29/18 at 08:00 Albuterol (Ventolin Hfa) 2 puff Q4H RESP THERAPY PRN INH WHEEZING; Start 07/29/18 at 09:00 Miscellaneous Information 1 ea NOTE XX ; Start 07/29/18 at 07:00 Glucose (Glutose) 15 gm Q15M PRN PO DECREASED GLUCOSE; Start 07/29/18 at 07:00 Glucose (Glutose) 22.5 gm Q15M PRN PO DECREASED GLUCOSE; Start 07/29/18 at 07:00 Dextrose (D50w Syringe) 25 ml Q15M PRN IV DECREASED GLUCOSE Last administered on 08/24/18at 07:58; Admin Dose 25 ML; Start 07/29/18 at 07:00 Dextrose (D50w Syringe) 50 ml Q15M PRN IV DECREASED GLUCOSE; Start 07/29/18 at 07:00 Glucagon (Glucagen) 1 mg Q15M PRN IM DECREASED GLUCOSE; Start 07/29/18 at 07:00 Glucose (Glutose) 15 gm Q15M PRN BUCCAL DECREASED GLUCOSE; Start 07/29/18 at 07:00 Alprazolam (Xanax) 0.25 mg Q8H PRN PO ANXIETY Last administered on 08/19/18at 00:10; Admin Dose 0.25 MG; Start 07/29/18 at 12:30 Polyethylene Glycol (Miralax) 17 gm DAILY PO Last administered on 08/28/18at 08:29; Admin Dose 17 GM; Start 07/29/18 at 12:30 Magnesium Hydroxide (Milk Of Mag) 30 ml Q12H PRN PO STOMACH UPSET/CRAMPING Last administered on 07/31/18at 21:28; Admin Dose 30 ML; Start 07/31/18 at 20:00 Al Hydrox/Mg Hydrox/Simethicone (Mag-Al Plus) 30 ml Q6H PRN PO GASTROINTESTINAL UPSET Last administered on 08/16/18at 23:45; Admin Dose 30 ML; Start 08/03/18 at 17:30 Insulin Glargine (Lantus) 8 units DAILY@2000 SC Last administered on 08/27/18at 20:26; Admin Dose 8 UNITS; Start 08/09/18 at 20:00 Albuterol/ Ipratropium (Duoneb) 3 ml Q2H RESP THERAPY PRN HHN sob Last administered on 08/19/18 03:28; Admin Dose 3 ML; Start 08/14/18 at 12:00 Diltiazem HCl (Cardizem Iv) 5 mg Q4 PRN IV HR>70 for Cardiac CTA Last administered on 08/19/18 03:50; Admin Dose 5 MG; Start 08/17/18 at 11:30 Lorazepam (Ativan) 1 mg Q8H PRN IV ANXIETY Last administered on 08/20/18 12:39; Admin Dose 1 MG; Start 08/17/18 at 15:30 Epoetin Glenn-epbx (Retacrit (Non-Esrd)) 20,000 unit TuThSa@1700 SC Last administered on 08/25/18 17:33; Admin Dose 20,000 UNIT; Start 08/18/18 at 17:00 Simethicone (Mylicon) 160 mg Q6H PRN PO DISTENSION/GAS/BLOATING Last administered on 08/18/18 08:49; Admin Dose 160 MG; Start 08/17/18 at 20:00 Propofol 100 ml @ 1.568 mls/ hr Q12H IV Last administered on 08/27/18 22:21; Admin Dose 7.841 MLS/HR; Start 08/19/18 at 09:30 Norepinephrine 250 ml @ 1.875 mls/ hr TITRATE IV Last administered on 08/20/18 08:57; Admin Dose 9.375 MLS/HR; Start 08/19/18 at 10:30 Insulin Aspart (Novolog Insulin Pen) NOVOLOG *MODERATE* ALGORI... Q4 SC Last administered on 08/28/18 08:34; Admin Dose 2 UNIT; Start 08/20/18 at 01:00 Lansoprazole (Prevacid) 30 mg DAILY@06 NGT Last administered on 08/28/18 06:25; Admin Dose 30 MG; Start 08/21/18 at 06:00 Piperacillin Sod/ Tazobactam Sod 100 ml @ 200 mls/hr Q8 IVPB Last administered on 08/28/18 06:25; Admin Dose 200 MLS/HR; Start 08/22/18 at 22:00 Enoxaparin Sodium (Lovenox) 50 mg DAILY SC Last administered on 08/28/18 08:33; Admin Dose 50 MG; Start 08/24/18 at 09:00 Metoprolol Tartrate (Lopressor) 25 mg BID PO Last administered on 08/28/18 08:29; Admin Dose 25 MG; Start 08/23/18 at 21:00 Fentanyl 100 ml @ 2.5 mls/hr TITRATE IV Last administered on 08/26/18at 09:36; Admin Dose 2.5 MLS/HR; Start 08/26/18 at 09:00 Vancomycin HCl (Vanco Iv Per Pharmacy) VANCOMYCIN PER PHARMACY PER PROTOCOL XX ; Start 08/26/18 at 14:30 Vancomycin HCl 100 ml @ 100 mls/hr Q36H IVPB Last administered on 08/28/18at 04:40; Admin Dose 100 MLS/HR; Start 08/28/18 at 04:00 Sodium Bicarbonate 100 meq/Dextrose/ Sodium Chloride 1,000 ml @ 100 mls/hr Q10H IV Last administered on 08/28/18at 00:31; Admin Dose 100 MLS/HR; Start 08/27/18 at 13:00 Docusate Sodium (Colace Liquid Cup) 100 mg BID NGT Last administered on 08/28/18 08:29; Admin Dose 100 MG; Start 08/27/18 at 21:00 Miscellaneous Information (*Order Clarification Bulletin) MEDICATION REQUIRES CLARIFICATI... Q8H XX ; Start 08/28/18 at 08:00 DENISSE THAO NP Aug 28, 2018 12:48
--- NOTE | 2018-08-28 14:03 | QN ---
Documentation Comment Pt continues in very poor but stable condition. No blood products suggested. 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 Hopefully her son will consider comfort care when she has failed to improve over the next several days. TUAN BARRON MD Aug 28, 2018 14:02
--- NOTE | 2018-08-28 14:46 | PN ---
Date/Time of Note Date/Time of Note DATE: 08/28/18 TIME: 14:45 Assessment/Plan VTE Prophylaxis Risk score (from Nsg)>0 risk: 10 Pharmacological prophylaxis: LMWH Assessment/Plan Hospital Course This is a 68-year-old female with past medical history of diabetes mellitus, peripheral artery disease, stroke, dyslipidemia, and hypothyroidism. The patient presented to the emergency room with multiple complaints including bilateral lower extremity edema, unintentional weight loss, etc. The patient was admitted to inpatient setting for further treatment and evaluation. The patient underwent a CT scan of the abdomen and pelvis on 08/01/2018 that showed abnormal enlargement of the uterus with significant thickening of the endometrial stripe with pelvis MRI showing irregular 9 cm exophytic posterior uterine mass. 1. Metastatic carcinosarcoma of uterus. Being followed by oncology. A poor candidate for chemo as per oncology. 2. Malignant pleural effusion. Status post right-sided thoracentesis on 08/15/2018. S/P Pleurx catheter placement on 08/23/2018. 3. Positive Lexiscan myocardial perfusion study. Study positive for partially reversible perfusion defect in the distal anterior wall. Being followed by cardiology. Continue aspirin plus Plavix. 4. Status post cardiopulmonary arrest on 08/19/2018. Etiology could be secondary to underlying hypoxia versus others. Intubated and on pressors. Poor prognosis. 5. NSTEMI on 08/22/2018. Continue antiplatelet therapy. Cardiology following. 6. Peripheral artery disease. Being followed by vascular surgery. Optimize medical management. Continue aspirin plus Plavix. Continue statins. 7. Diabetes mellitus. Hemoglobin A1c 6.3. Continue sliding scale insulin along with basal. 8. Hypothyroidism. Continue Synthroid. 9. Acute kidney injury. Being followed by nephrology. Use nephrotoxic drugs with caution. 10. Normocytic anemia. Monitor H&H closely. Continue Epogen. 11. Acute respiratory failure. Hypoxic. Ventilator management as per pulmonology. 12. S/P Shock. S/P IV pressors for blood pressure support 13. Pneumothorax CT surgery for possible chest tube Prophylaxis: Lovenox DC planning: Palliative care consultation appreciated, patient now a chemical code Poor prognosis Result Diagram: 08/28/18 0449 08/28/18 0457 Results 24hrs Laboratory Tests Test 08/27/18 16:49 08/27/18 20:24 08/28/18 00:36 08/28/18 04:49 Bedside Glucose 156 160 202 White Blood Count 14.6 H Red Blood Count 3.05 L Hemoglobin 8.6 L Hematocrit 26.6 L Mean Corpuscular 87.2 Volume Mean Corpuscular 28.2 L Hemoglobin Mean Corpuscular 32.3 Hemoglobin Concent Red Cell 18.4 H Distribution Width Platelet Count 515 H Mean Platelet 10.6 H Volume Immature 5.400 H Granulocytes % Neutrophils % Segmented 62 Neutrophils % (Manual) Band Neutrophils % 3 (Manual) Lymphocytes % Lymphocytes % 10 L (Manual) Monocytes % Monocytes % 7 (Manual) Eosinophils % Eosinophils % 13 H (Manual) Basophils % Basophils % 1 (Manual) Metamyelocytes % 1 H (manual) Myelocytes % 2 H (Manual) Nucleated Red 18 H Blood Cells % Immature 0.780 H Granulocytes # Neutrophils # Neutrophils # 9.1 H (Manual) Band Neutrophils # 0.4 Lymphocytes 1.4 (Manual) Lymphocytes # Monocytes # Monocytes # 1.0 H (Manual) Eosinophils # Basophils # Basophils # 0.1 H (Manual) Metamyelocytes # 0.1 H Myelocytes # 0.2 H Nucleated Red Blood Cells # Platelet Estimate NORMAL Giant Platelets 5 H Polychromasia 2+ Poikilocytosis 2+ Anisocytosis 1+ Macrocytosis 1+ Test 08/28/18 04:57 08/28/18 05:06 08/28/18 08:23 08/28/18 11:30 Sodium Level 143 Potassium Level 3.4 L Chloride Level 115 H Carbon Dioxide 19 L Level Anion Gap 9 Blood Urea 51 H Nitrogen Creatinine 2.32 H Est Glomerular 21 L Filtrat Rate mL/min Glucose Level 181 Calcium Level 8.3 L Phosphorus Level 4.0 Magnesium Level 2.6 H Bedside Glucose 166 174 Blood Gas Specimen Blood arterial Source Arterial Blood 08/28/2018 11:36:03 Date Drawn AM Arterial Blood pH 7.413 (Temp corrected) Arterial Blood 29.6 L pCO2 (Temp correct) Arterial Blood pO2 102.4 H (Temp corrected) Arterial Blood 18.5 L HCO3 Arterial Blood -5.1 L Base Excess Arterial Blood 97.8 Oxygen Saturation Quinten Test ACCEPTAB Arterial Blood Gas Right Radial Puncture Site Arterial 0.2 Blood Carboxyhemog lobin Arterial Blood 0.1 Methemoglobin Blood Gas A-a O2 76.7 H Differential Oxyhemoglobin 97.5 Percent Blood Gas 37.0 Temperature Blood Gas Actual 35 Respiration Rate Blood Gas Modality VENT - CPAP FiO2 30.0 Blood Gas Low PEEP 5.0 Setting Blood Gas Pressure 10 Support Blood Gas Notified TM Whom Blood Gas Notified 08/28/2018 11:45:45 Time AM Test 08/28/18 13:58 Bedside Glucose 126 Subjective 24 Hr Interval Summary Subjective hx not possible: pt non-verbal Exam/Review of Systems Exam Vitals Vital Signs Date Temp Pulse Resp B/P (MAP) Pulse Ox O2 O2 Flow FiO2 Time Delivery Rate 08/28/18 84 32 100 30 13:40 08/28/18 131/61 11:30 (84) 08/28/18 Mechanical 11:00 Ventilator 08/28/18 97.8 08:00 Intake and Output 08/27/18 08/27/18 08/28/18 1515:00 23:00 07:00 IntakeIntake Total 535.934 ml 1400.216 ml 1125.1 ml OutputOutput Total 885 ml 140 ml 105 ml BalanceBalance -349.066 ml 1260.216 ml 1020.1 ml ENMT: intubated Respiratory: clear to auscultation Cardiovascular: regular rate and rhythm Gastrointestinal: soft; No distended Musculoskeletal: nl extremities to inspection Results Results 24hrs Laboratory Tests Test 08/27/18 16:49 08/27/18 20:24 08/28/18 00:36 08/28/18 04:49 Bedside Glucose 156 160 202 White Blood Count 14.6 H Red Blood Count 3.05 L Hemoglobin 8.6 L Hematocrit 26.6 L Mean Corpuscular 87.2 Volume Mean Corpuscular 28.2 L Hemoglobin Mean Corpuscular 32.3 Hemoglobin Concent Red Cell 18.4 H Distribution Width Platelet Count 515 H Mean Platelet 10.6 H Volume Immature 5.400 H Granulocytes % Neutrophils % Segmented 62 Neutrophils % (Manual) Band Neutrophils % 3 (Manual) Lymphocytes % Lymphocytes % 10 L (Manual) Monocytes % Monocytes % 7 (Manual) Eosinophils % Eosinophils % 13 H (Manual) Basophils % Basophils % 1 (Manual) Metamyelocytes % 1 H (manual) Myelocytes % 2 H (Manual) Nucleated Red 18 H Blood Cells % Immature 0.780 H Granulocytes # Neutrophils # Neutrophils # 9.1 H (Manual) Band Neutrophils # 0.4 Lymphocytes 1.4 (Manual) Lymphocytes # Monocytes # Monocytes # 1.0 H (Manual) Eosinophils # Basophils # Basophils # 0.1 H (Manual) Metamyelocytes # 0.1 H Myelocytes # 0.2 H Nucleated Red Blood Cells # Platelet Estimate NORMAL Giant Platelets 5 H Polychromasia 2+ Poikilocytosis 2+ Anisocytosis 1+ Macrocytosis 1+ Test 08/28/18 04:57 08/28/18 05:06 08/28/18 08:23 08/28/18 11:30 Sodium Level 143 Potassium Level 3.4 L Chloride Level 115 H Carbon Dioxide 19 L Level Anion Gap 9 Blood Urea 51 H Nitrogen Creatinine 2.32 H Est Glomerular 21 L Filtrat Rate mL/min Glucose Level 181 Calcium Level 8.3 L Phosphorus Level 4.0 Magnesium Level 2.6 H Bedside Glucose 166 174 Blood Gas Specimen Blood arterial Source Arterial Blood 08/28/2018 11:36:03 Date Drawn AM Arterial Blood pH 7.413 (Temp corrected) Arterial Blood 29.6 L pCO2 (Temp correct) Arterial Blood pO2 102.4 H (Temp corrected) Arterial Blood 18.5 L HCO3 Arterial Blood -5.1 L Base Excess Arterial Blood 97.8 Oxygen Saturation Quinten Test ACCEPTAB Arterial Blood Gas Right Radial Puncture Site Arterial 0.2 Blood Carboxyhemog lobin Arterial Blood 0.1 Methemoglobin Blood Gas A-a O2 76.7 H Differential Oxyhemoglobin 97.5 Percent Blood Gas 37.0 Temperature Blood Gas Actual 35 Respiration Rate Blood Gas Modality VENT - CPAP FiO2 30.0 Blood Gas Low PEEP 5.0 Setting Blood Gas Pressure 10 Support Blood Gas Notified TM Whom Blood Gas Notified 08/28/2018 11:45:45 Time AM Test 08/28/18 13:58 Bedside Glucose 126 Medications Medication Current Medications IV Flush (NS 3 ml) 3 ml PER PROTOCOL IV Last administered on 08/05/18 09:07; Admin Dose 3 ML; Start 07/29/18 at 06:30 Ondansetron HCl (Zofran Inj) 4 mg Q6H PRN IV NAUSEA/VOMITING Last administered on 08/18/18at 18:34; Admin Dose 4 MG; Start 07/29/18 at 06:30 Acetaminophen/ Hydrocodone Bitart ([place] (5/325)) 1 tab Q6H PRN PO .MOD PAIN 4- 6 Last administered on 08/19/18 03:42; Admin Dose 1 TAB; Start 07/29/18 at 06:30 Diagnostic Test (Pha) (Accu-Chek) 1 ea 02 XX Last administered on 08/27/18at 01:3 8; Admin Dose 1 EA; Start 07/30/18 at 02:00 Acetaminophen (Tylenol Tab) 650 mg Q6H PRN PO .PAIN 1-3 OR TEMP Last administered on 08/17/18at 05:46; Admin Dose 650 MG; Start 07/29/18 at 07:00 Eye Lubricant ([place] Oint) 1 applic Q1H PRN BOTH EYES DRY EYES; Start 07/29/18 at 08:00 Aspirin (Halfprin) 81 mg DAILY PO Last administered on 08/28/18 08:29; Admin Dose 81 MG; Start 07/29/18 at 09:00 Atorvastatin Calcium (Lipitor) 20 mg QHS PO Last administered on 08/27/18at 20:54; Admin Dose 20 MG; Start 07/29/18 at 21:00 Clopidogrel Bisulfate (plaVIX) 75 mg DAILY PO Last administered on 08/28/18at 08:30; Admin Dose 75 MG; Start 07/29/18 at 09:00 Cyanocobalamin (Vitamin B12) 50 mcg DAILY PO Last administered on 08/28/18 08:30; Admin Dose 50 MCG; Start 07/29/18 at 09:00 Levothyroxine Sodium (Synthroid) 50 mcg BEFORE BREAKFAST PO Last administered on 08/28/18 06:25; Admin Dose 50 MCG; Start 07/29/18 at 07:00 Polyethyl Glycol/ Propylene Glycol (Systane 0.3-0.4% Eye Drops) 1 drop Q4H PRN BOTH EYES DRY EYES; Start 07/29/18 at 08:00 Albuterol (Ventolin Hfa) 2 puff Q4H RESP THERAPY PRN INH WHEEZING; Start 07/29/18 at 09:00 Miscellaneous Information 1 ea NOTE XX ; Start 07/29/18 at 07:00 Glucose (Glutose) 15 gm Q15M PRN PO DECREASED GLUCOSE; Start 07/29/18 at 07:00 Glucose (Glutose) 22.5 gm Q15M PRN PO DECREASED GLUCOSE; Start 07/29/18 at 07:00 Dextrose (D50w Syringe) 25 ml Q15M PRN IV DECREASED GLUCOSE Last administered on 08/24/18 07:58; Admin Dose 25 ML; Start 07/29/18 at 07:00 Dextrose (D50w Syringe) 50 ml Q15M PRN IV DECREASED GLUCOSE; Start 07/29/18 at 07:00 Glucagon (Glucagen) 1 mg Q15M PRN IM DECREASED GLUCOSE; Start 07/29/18 at 07:00 Glucose (Glutose) 15 gm Q15M PRN BUCCAL DECREASED GLUCOSE; Start 07/29/18 at 07:00 Alprazolam (Xanax) 0.25 mg Q8H PRN PO ANXIETY Last administered on 08/19/18 00:10; Admin Dose 0.25 MG; Start 07/29/18 at 12:30 Polyethylene Glycol (Miralax) 17 gm DAILY PO Last administered on 08/28/18 08:29; Admin Dose 17 GM; Start 07/29/18 at 12:30 Magnesium Hydroxide (Milk Of Mag) 30 ml Q12H PRN PO STOMACH UPSET/CRAMPING Last administered on 07/31/18 21:28; Admin Dose 30 ML; Start 07/31/18 at 20:00 Al Hydrox/Mg Hydrox/Simethicone (Mag-Al Plus) 30 ml Q6H PRN PO GASTROINTESTINAL UPSET Last administered on 08/16/18 23:45; Admin Dose 30 ML; Start 08/03/18 at 17:30 Insulin Glargine (Lantus) 8 units DAILY@2000 SC Last administered on 08/27/18 20:26; Admin Dose 8 UNITS; Start 08/09/18 at 20:00 Albuterol/ Ipratropium (Duoneb) 3 ml Q2H RESP THERAPY PRN HHN sob Last administered on 08/19/18 03:28; Admin Dose 3 ML; Start 08/14/18 at 12:00 Diltiazem HCl (Cardizem Iv) 5 mg Q4 PRN IV HR>70 for Cardiac CTA Last administered on 08/19/18 03:50; Admin Dose 5 MG; Start 08/17/18 at 11:30 Lorazepam (Ativan) 1 mg Q8H PRN IV ANXIETY Last administered on 08/20/18 12:3 9; Admin Dose 1 MG; Start 08/17/18 at 15:30 Epoetin Glenn-epbx (Retacrit (Non-Esrd)) 20,000 unit TuThSa@1700 SC Last administered on 08/25/18 17:33; Admin Dose 20,000 UNIT; Start 08/18/18 at 17:00 Simethicone (Mylicon) 160 mg Q6H PRN PO DISTENSION/GAS/BLOATING Last administered on 08/18/18 08:49; Admin Dose 160 MG; Start 08/17/18 at 20:00 Propofol 100 ml @ 1.568 mls/ hr Q12H IV Last administered on 08/27/18 22:21; Admin Dose 7.841 MLS/HR; Start 08/19/18 at 09:30 Norepinephrine 250 ml @ 1.875 mls/ hr TITRATE IV Last administered on 08/20/18 08:57; Admin Dose 9.375 MLS/HR; Start 08/19/18 at 10:30 Insulin Aspart (Novolog Insulin Pen) NOVOLOG *MODERATE* ALGORI... Q4 SC Last administered on 08/28/18 08:34; Admin Dose 2 UNIT; Start 08/20/18 at 01:00 Lansoprazole (Prevacid) 30 mg DAILY@06 NGT Last administered on 08/28/18 06:25; Admin Dose 30 MG; Start 08/21/18 at 06:00 Piperacillin Sod/ Tazobactam Sod 100 ml @ 200 mls/hr Q8 IVPB Last administered on 08/28/18 13:59; Admin Dose 200 MLS/HR; Start 08/22/18 at 22:00 Enoxaparin Sodium (Lovenox) 50 mg DAILY SC Last administered on 08/28/18 08:33; Admin Dose 50 MG; Start 08/24/18 at 09:00 Metoprolol Tartrate (Lopressor) 25 mg BID PO Last administered on 08/28/18 08:29; Admin Dose 25 MG; Start 08/23/18 at 21:00 Fentanyl 100 ml @ 2.5 mls/hr TITRATE IV Last administered on 08/26/18 09:36; Admin Dose 2.5 MLS/HR; Start 08/26/18 at 09:00 Vancomycin HCl (Vanco Iv Per Pharmacy) VANCOMYCIN PER PHARMACY PER PROTOCOL XX ; Start 08/26/18 at 14:30 Vancomycin HCl 100 ml @ 100 mls/hr Q36H IVPB Last administered on 08/28/18at 04:40; Admin Dose 100 MLS/HR; Start 08/28/18 at 04:00 Sodium Bicarbonate 100 meq/Dextrose/ Sodium Chloride 1,000 ml @ 100 mls/hr Q10H IV Last administered on 08/28/18at 13:59; Admin Dose 100 MLS/HR; Start 08/27/18 at 13:00 Docusate Sodium (Colace Liquid Cup) 100 mg BID NGT Last administered on 08/28/18at 08:29; Admin Dose 100 MG; Start 08/27/18 at 21:00 Miscellaneous Information (*Order Clarification Bulletin) MEDICATION REQUIRES CLARIFICATI... Q8H XX ; Start 08/28/18 at 08:00 NATY LUJAN Aug 28, 2018 14:46
[2018-08-28] MEDS: HYDROCODONE/APAP (5/325) TAB PO PRN (16:24)
[2018-08-28] MEDS: EPOETIN ALFA-EPBX (NON-ESRD 10,000 UNIT/ML VIAL SC SCH (18:18)
[2018-08-28] MEDS: INSULIN GLARGINE [LANTus] (100 UNITS/ML) SYG SC SCH (20:52)
[2018-08-28] MEDS: ATORVASTATIN 20 MG TAB PO SCH (20:54)
[2018-08-28] MEDS: ALPRAZOLAM 0.25 MG TAB PO PRN (20:58)
[2018-08-28] MEDS: ACETAMINOPHEN 325 MG TAB PO PRN (20:58)
[2018-08-28] MEDS: PROPOFOL 100 ML IV SCH (20:59)
[2018-08-29] VITALS (24 sets, daily range): BP systolic 77–167; BP diastolic 49–149; PULSE 68–90; RESP 8–33
[2018-08-29] MEDS: INSULIN ASPART [NOVOLOG] 3 ML PEN SC SCH ×4 (00:56→14:45)
[2018-08-29] MEDS: SODIUM BICARBONATE (IV ADD) 100 MEQ in DEXTROSE 5%-0.45% NACL 900 ML IV SCH (01:38)
[2018-08-29] MEDS: ACCU-CHEK XX SCH (02:00)
[2018-08-29] MEDS: LANSOPRAZOLE 30 MG CAP NGT SCH (06:09)
[2018-08-29] MEDS: PIPER-TAZO 3.375 GM IV (PMX) 100 ML IVPB SCH ×2 (06:09→14:00)
[2018-08-29] MEDS: LEVOTHYROXINE 50 MCG TAB PO SCH (06:10)
[2018-08-29] MEDS ORDERED: SOD CHLORIDE 0.45% 1,000 ML IV SCH (07:30)
[2018-08-29] MEDS: POTASSIUM CHLORIDE 100 ML IVPB SCH ×2 (08:34→12:07)
[2018-08-29] MEDS: CYANOCOBALAMIN 100 MCG TAB PO SCH (08:39)
[2018-08-29] MEDS: DOCUSATE SODIUM 10 MG/ML (10ML CUP) NGT SCH (08:39)
[2018-08-29] MEDS: CLOPIDOGREL 75 MG TAB PO SCH (08:39)
[2018-08-29] MEDS: METOPROLOL 25 MG TAB PO SCH (08:41)
[2018-08-29] MEDS: POLYETHYLENE GLYCOL 17 GM PACKET PO SCH (08:41)
[2018-08-29] MEDS: HYDROCODONE/APAP (5/325) TAB PO PRN (08:42)
[2018-08-29] MEDS: ENOXAPARIN 60 MG/0.6 ML SYG SC SCH (08:44)
--- NOTE | 2018-08-29 08:53 | PN ---
DATE: 08/29/2018 SUBJECTIVE: The patient is stable, no events overnight. OBJECTIVE: VITAL SIGNS: Blood pressure is 144/85, pulse 90, respiration 19, temperature 98.6. HEENT: Head is normocephalic. NECK: Supple. HEART: Regular rate. LUNGS: Show diminished breath sounds at the base. ABDOMEN: Soft, nontender to palpation. No rebound, guarding. EXTREMITIES: Negative for clubbing, cyanosis, no edema. DERMATOLOGIC: No rashes. MUSCULOSKELETAL: No joint effusion. NEUROLOGIC: No change in exam. MEDICATIONS: Reviewed. LABORATORY DATA: Has been reviewed. IMAGING STUDIES: Have been reviewed. ASSESSMENT AND PLAN: 1. Nonoliguric acute kidney injury on top of chronic kidney disease with previous baseline creatinin e of 1.4 mg/dL. Etiology of acute kidney injury is secondary to acute tubular necrosis due to sepsis , hemodynamics. The patient appears to be entering maintenance phase of acute tubular necrosis as re nal function has been stable in the last 2 to 3 days. At this point, continue current treatment plan , supportive care, renally dose all meds. 2. Hypokalemia. Continue to monitor and replete. 3. Hypernatremia. The patient has a free water deficit approximately 2 liters. We will continue hy pertonic fluids. 4. Mixed acid base disorder. Continue to monitor. 5. Anemia. Monitor hemoglobin and hematocrit levels. 6. Mineral bone disorder, monitor calcium and phosphorus levels. 7. Respiratory failure. The patient is status post extubation, currently on a face mask. Continue to monitor. 8. Pneumothorax, status post chest tube. Continue to monitor. Follow up with pulmonary. 9. Coronary artery disease. Continue medical management. 10. Diabetes. Continue current insulin regimen. 11. Hypothyroidism. Continue Synthroid. 12. Metastatic carcinosarcoma of the uterus. Continue to monitor. 13. Encephalopathy, etiology is toxic metabolic. 14. Sepsis, status post shock. Continue current antibiotic regimen. 15. Status post cardiac arrest. Dictated By: JACOB KAUFMAN/NTS Conf#: [id number] DID#: [id number] CC: TAN MAIER MD;*End*
[2018-08-29] MEDS ORDERED: ASPIRIN 81 MG TAB GTB SCH (09:00)
[2018-08-29] MEDS ORDERED: morphine 2 MG INJ IV PRN (09:30)
--- NOTE | 2018-08-29 10:07 | CONS ---
Assessment/Plan Assessment/Plan Hospital Course (Demo Recall) IMP: 1.Preop-neg trop multiple times. NL EF by echo. Lexiscan with possible distal anterior ischemia. NL EF. Now with positive troponin's s/p cardiopulmonary arrest 2.abnl ecg-ECG today with inferior ST elevation but with normal concavity and Q's isolated to lead 3 . NL EF by echo this admit. multiple negative troponins and no chest pain prior to arrest 3.Uterine cancer 4.DM 5.Hoth-resolved off of pressors 6.HL 7.PLeural effusion-L sided large, malignant by cytology s/p pleur x catheter 8. Resp failure s/p intubation 9. NSTEMI-likely type 2 demand infarct with now downtrended cardiac enzymes 10. PTX- R sided Recc -Remains in ICU s/p cardiopulmonary arrest -Continue asa/plavix/lovenox -Continue BB as tolerated -trend cardiac enzymes -Continue SQ lovenox s/p pleur-x catheter -ongoing renal f/u -follow BS closely -if patient is to have debulking surgery will require LHC prior to surgery given now NSTEMI and abnl stress test -ongoing family discussion about direction of care and now chemical code Consultation Date/Type/Reason Admit Date/Time Jul 29, 2018 at 06:16 Initial Consult Date 08/10/18 Type of Consult Cardiology Reason for Consultation Nstemi Requesting Provider: SANDI MURDOCK NP Date/Time of Note DATE: 08/29/18 TIME: 10:04 Exam/Review of Systems Vital Signs Vitals Vital Signs Date Temp Pulse Resp B/P (MAP) Pulse Ox O2 O2 Flow FiO2 Time Delivery Rate 08/29/18 81 08:00 08/29/18 19 144/85 100 Non 15.0 07:00 (104) Rebreather 08/29/18 98.0 04:00 08/28/18 60 16:03 Intake and Output 08/28/18 08/28/18 08/29/18 1515:00 23:00 07:00 IntakeIntake Total 689.5 ml 650 ml 740 ml OutputOutput Total 335 ml 259 ml 280 ml BalanceBalance 354.5 ml 391 ml 460 ml Exam Exam Review of Systems: CONSTITUTIONAL: No fevers, chills. PULMONARY: face mask in place CARDIOVASCULAR: No chest pain/palpitations GASTROINTESTINAL: No nausea/vomiting. GENITOURINARY: No hematuria/dysuria. MUSCULOSKELETAL: No myagias/arthalgias. PSYCHIATRIC: The patient denies depression. NEUROLOGIC: lethargic, confused Constitutional: alert Psych: no complaints Head: normocephalic ENMT: mucosa pink and moist Neck: supple, jvd (9 cm water) Respiratory: diminished breath sounds (@bases/B) Cardiovascular: regular rate and rhythm Gastrointestinal: soft, non-tender Musculoskeletal: muscle weakness (generalized) Extremities: edema (trace/B) Neurological: confused Labs Result Diagram: 08/29/18 0426 08/29/18 0426 Results 24hrs Laboratory Tests Test 08/28/18 11:30 08/28/18 13:58 08/28/18 16:27 08/28/18 20:49 Blood Gas Specimen Blood arterial Source Arterial Blood 08/28/2018 11:36:03 Date Drawn AM Arterial Blood pH 7.413 (Temp corrected) Arterial Blood 29.6 L pCO2 (Temp correct) Arterial Blood pO2 102.4 H (Temp corrected) Arterial Blood 18.5 L HCO3 Arterial Blood -5.1 L Base Excess Arterial Blood 97.8 Oxygen Saturation Quinten Test ACCEPTAB Arterial Blood Gas Right Radial Puncture Site Arterial 0.2 Blood Carboxyhemog lobin Arterial Blood 0.1 Methemoglobin Blood Gas A-a O2 76.7 H Differential Oxyhemoglobin 97.5 Percent Blood Gas 37.0 Temperature Blood Gas Actual 35 Respiration Rate Blood Gas Modality VENT - CPAP FiO2 30.0 Blood Gas Low PEEP 5.0 Setting Blood Gas Pressure 10 Support Blood Gas Notified TM Whom Blood Gas Notified 08/28/2018 11:45:45 Time AM Bedside Glucose 126 171 161 Test 08/29/18 00:55 08/29/18 02:02 08/29/18 04:26 08/29/18 05:03 Bedside Glucose 128 127 133 White Blood Count 17.3 H Red Blood Count 3.24 L Hemoglobin 9.2 L Hematocrit 28.2 L Mean Corpuscular 87.0 Volume Mean Corpuscular 28.4 L Hemoglobin Mean Corpuscular 32.6 Hemoglobin Concent Red Cell 18.0 H Distribution Width Platelet Count 589 H Mean Platelet 10.6 H Volume Immature 3.700 H Granulocytes % Neutrophils % 63.1 Lymphocytes % 13.8 L Monocytes % 11.0 Eosinophils % 7.6 H Basophils % 0.8 Nucleated Red 7.4 H Blood Cells % Immature 0.630 H Granulocytes # Neutrophils # 10.9 H Lymphocytes # 2.4 Monocytes # 1.9 H Eosinophils # 1.3 H Basophils # 0.1 Nucleated Red 1.3 H Blood Cells # Sodium Level 146 H Potassium Level 3.4 L Chloride Level 115 H Carbon Dioxide 23 Level Anion Gap 8 Blood Urea 51 H Nitrogen Creatinine 2.29 H Est Glomerular 21 L Filtrat Rate mL/min Glucose Level 116 # Calcium Level 8.5 Phosphorus Level 4.3 Magnesium Level 2.5 Test 08/29/18 08:38 Bedside Glucose 112 Medications Medications Current Medications IV Flush (NS 3 ml) 3 ml PER PROTOCOL IV Last administered on 08/05/18 09:07; Admin Dose 3 ML; Start 07/29/18 at 06:30 Ondansetron HCl (Zofran Inj) 4 mg Q6H PRN IV NAUSEA/VOMITING Last administered on 08/18/18 18:34; Admin Dose 4 MG; Start 07/29/18 at 06:30 Acetaminophen/ Hydrocodone Bitart ([place] (5/325)) 1 tab Q6H PRN PO .MOD PAIN 4- 6 Last administered on 08/29/18 08:42; Admin Dose 1 TAB; Start 07/29/18 at 06:30 Diagnostic Test (Pha) (Accu-Chek) 1 ea 02 XX Last administered on 08/27/18 01:38; Admin Dose 1 EA; Start 07/30/18 at 02:00 Acetaminophen (Tylenol Tab) 650 mg Q6H PRN PO .PAIN 1-3 OR TEMP Last administered on 08/28/18 20:58; Admin Dose 650 MG; Start 07/29/18 at 07:00 Eye Lubricant (Akwa Oint) 1 applic Q1H PRN BOTH EYES DRY EYES; Start 07/29/18 at 08:00 Atorvastatin Calcium (Lipitor) 20 mg QHS PO Last administered on 08/28/18 20:54; Admin Dose 20 MG; Start 07/29/18 at 21:00 Clopidogrel Bisulfate (plaVIX) 75 mg DAILY PO Last administered on 08/29/18 08:39; Admin Dose 75 MG; Start 07/29/18 at 09:00 Cyanocobalamin (Vitamin B12) 50 mcg DAILY PO Last administered on 08/29/18 08:39; Admin Dose 50 MCG; Start 07/29/18 at 09:00 Levothyroxine Sodium (Synthroid) 50 mcg BEFORE BREAKFAST PO Last administered on 08/29/18 06:10; Admin Dose 50 MCG; Start 07/29/18 at 07:00 Polyethyl Glycol/ Propylene Glycol (Systane 0.3-0.4% Eye Drops) 1 drop Q4H PRN BOTH EYES DRY EYES; Start 07/29/18 at 08:00 Albuterol (Ventolin Hfa) 2 puff Q4H RESP THERAPY PRN INH WHEEZING; Start 07/29/18 at 09:00 Miscellaneous Information 1 ea NOTE XX ; Start 07/29/18 at 07:00 Glucose (Glutose) 15 gm Q15M PRN PO DECREASED GLUCOSE; Start 07/29/18 at 07:00 Glucose (Glutose) 22.5 gm Q15M PRN PO DECREASED GLUCOSE; Start 07/29/18 at 07:00 Dextrose (D50w Syringe) 25 ml Q15M PRN IV DECREASED GLUCOSE Last administered o n 08/24/18at 07:58; Admin Dose 25 ML; Start 07/29/18 at 07:00 Dextrose (D50w Syringe) 50 ml Q15M PRN IV DECREASED GLUCOSE; Start 07/29/18 at 07:00 Glucagon (Glucagen) 1 mg Q15M PRN IM DECREASED GLUCOSE; Start 07/29/18 at 07:00 Glucose (Glutose) 15 gm Q15M PRN BUCCAL DECREASED GLUCOSE; Start 07/29/18 at 07:00 Alprazolam (Xanax) 0.25 mg Q8H PRN PO ANXIETY Last administered on 08/28/18at 20:58; Admin Dose 0.25 MG; Start 07/29/18 at 12:30 Polyethylene Glycol (Miralax) 17 gm DAILY PO Last administered on 08/28/18 08:29; Admin Dose 17 GM; Start 07/29/18 at 12:30 Magnesium Hydroxide (Milk Of Mag) 30 ml Q12H PRN PO STOMACH UPSET/CRAMPING Last administered on 07/31/18at 21:28; Admin Dose 30 ML; Start 07/31/18 at 20:00 Al Hydrox/Mg Hydrox/Simethicone (Mag-Al Plus) 30 ml Q6H PRN PO GASTROINTESTINAL UPSET Last administered on 08/16/18 23:45; Admin Dose 30 ML; Start 08/03/18 at 17:30 Insulin Glargine (Lantus) 8 units DAILY@2000 SC Last administered on 08/28/18 20:52; Admin Dose 8 UNITS; Start 08/09/18 at 20:00 Albuterol/ Ipratropium (Duoneb) 3 ml Q2H RESP THERAPY PRN HHN sob Last administered on 08/19/18 03:28; Admin Dose 3 ML; Start 08/14/18 at 12:00 Diltiazem HCl (Cardizem Iv) 5 mg Q4 PRN IV HR>70 for Cardiac CTA Last administered on 08/19/18 03:50; Admin Dose 5 MG; Start 08/17/18 at 11:30 Lorazepam (Ativan) 1 mg Q8H PRN IV ANXIETY Last administered on 08/20/18 12:39; Admin Dose 1 MG; Start 08/17/18 at 15:30 Epoetin Glenn-epbx (Retacrit (Non-Esrd)) 20,000 unit TuThSa@1700 SC Last admi nistered on 08/28/18 18:18; Admin Dose 20,000 UNIT; Start 08/18/18 at 17:00 Simethicone (Mylicon) 160 mg Q6H PRN PO DISTENSION/GAS/BLOATING Last administered on 08/18/18 08:49; Admin Dose 160 MG; Start 08/17/18 at 20:00 Norepinephrine 250 ml @ 1.875 mls/ hr TITRATE IV Last administered on 9at 08:57; Admin Dose 9.375 MLS/HR; Start 08/19/18 at 10:30 Insulin Aspart (Novolog Insulin Pen) NOVOLOG *MODERATE* ALGORI... Q4 SC Last administered on 08/28/18 20:56; Admin Dose 2 UNIT; Start 08/20/18 at 01:00 Lansoprazole (Prevacid) 30 mg DAILY@06 NGT Last administered on 08/29/18 06:09; Admin Dose 30 MG; Start 08/21/18 at 06:00 Piperacillin Sod/ Tazobactam Sod 100 ml @ 200 mls/hr Q8 IVPB Last administered on 08/29/18 06:09; Admin Dose 200 MLS/HR; Start 08/22/18 at 22:00 Enoxaparin Sodium (Lovenox) 50 mg DAILY SC Last administered on 08/29/18 08:44; Admin Dose 50 MG; Start 08/24/18 at 09:00 Metoprolol Tartrate (Lopressor) 25 mg BID PO Last administered on 08/29/18 08:41; Admin Dose 25 MG; Start 08/23/18 at 21:00 Vancomycin HCl (Vanco Iv Per Pharmacy) VANCOMYCIN PER PHARMACY PER PROTOCOL XX ; Start 08/26/18 at 14:30 Vancomycin HCl 100 ml @ 100 mls/hr Q36H IVPB Last administered on 08/28/18 04:40; Admin Dose 100 MLS/HR; Start 08/28/18 at 04:00 Docusate Sodium (Colace Liquid Cup) 100 mg BID NGT Last administered on 08/29/18 08:39; Admin Dose 100 MG; Start 08/27/18 at 21:00 Potassium Chloride 100 ml @ 50 mls/hr Q2H IVPB Last administered on 08/29/18 08:34; Admin Dose 50 MLS/HR; Start 08/29/18 at 07:30; Stop 08/29/18 at 11:29 Sodium Chloride 1,000 ml @ 50 mls/hr Q20H IV Last administered on 08/29/18 08:33; Admin Dose 50 MLS/HR; Start 08/29/18 at 07:30 Aspirin (Aspirin) 81 mg DAILY GTB Last administered on 08/29/18 08:38; Admin Dose 81 MG; Start 08/29/18 at 09:00 Morphine Sulfate (morphine) 1 mg Q2H PRN IV SEVERE PAIN LEVEL 7-10; Start 08/29/18 at 09:30 TAN LIRIANO Aug 29, 2018 10:07
--- NOTE | 2018-08-29 11:58 | CONS ---
Assessment/Plan Assessment/Plan Hospital Course (Demo Recall) Patient was extubated on facemask family at bedside no fevers overnight chest x- ray revealed large right pneumothorax Antimicrobials: Vancomycin, Zosyn ALL: Levaquin Indwelling: Endotracheal tube NG tube [place] catheter, femoral triple-lumen catheter, Pleurx Physical examination: Well-developed fragile elderly woman who is in no distress. Head atraumatic normocephalic sclera nonicteric vehicle mucosa dry neck is supple chest rise symmetrical breath sounds diminished bases heart: S1- S2 abdomen soft bowel sounds hypoactive extremities with trace edema Assessment: 1. Persistent leukocytosis 2. Status post asystolic cardiopulmonary arrest requiring intubation 3. Persistent right pleural effusion likely malignant, possibly parapneumonic 4. 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 Acute kidney insufficiency 6. Diabetes 7. Pneumonia 8. Right mastoiditis 9. Right pneumothorax Plan: Clinically unchanged, continue present care, family is leaning toward comfort care Consultation Date/Type/Reason Admit Date/Time Jul 29, 2018 at 06:16 Initial Consult Date 08/15/18 Type of Consult id Requesting Provider: SANDI MURDOCK NP Date/Time of Note DATE: 08/29/18 TIME: 11:57 Exam/Review of Systems Exam Vitals Vital Signs Date Temp Pulse Resp B/P (MAP) Pulse Ox O2 O2 Flow FiO2 Time Delivery Rate 08/29/18 82 16 136/59 100 Non 15.0 11:00 (84) Rebreather 08/29/18 97.8 08:00 08/28/18 60 16:03 Intake and Output 08/28/18 08/28/18 08/29/18 1515:00 23:00 07:00 IntakeIntake Total 689.5 ml 650 ml 740 ml OutputOutput Total 335 ml 259 ml 280 ml BalanceBalance 354.5 ml 391 ml 460 ml Results Result Diagram: 08/29/18 0426 08/29/18 0426 Results 24hrs Laboratory Tests Test 08/28/18 13:58 08/28/18 16:27 08/28/18 20:49 08/29/18 00:55 Bedside Glucose 126 171 161 128 Test 08/29/18 02:02 08/29/18 04:26 08/29/18 05:03 08/29/18 08:38 Bedside Glucose 127 133 112 White Blood Count 17.3 H Red Blood Count 3.24 L Hemoglobin 9.2 L Hematocrit 28.2 L Mean Corpuscular Volume 87.0 Mean Corpuscular 28.4 L Hemoglobin Mean Corpuscular 32.6 Hemoglobin Concent Red Cell Distribution 18.0 H Width Platelet Count 589 H Mean Platelet Volume 10.6 H Immature Granulocytes % 3.700 H Neutrophils % 63.1 Lymphocytes % 13.8 L Monocytes % 11.0 Eosinophils % 7.6 H Basophils % 0.8 Nucleated Red Blood 7.4 H Cells % Immature Granulocytes # 0.630 H Neutrophils # 10.9 H Lymphocytes # 2.4 Monocytes # 1.9 H Eosinophils # 1.3 H Basophils # 0.1 Nucleated Red Blood 1.3 H Cells # Sodium Level 146 H Potassium Level 3.4 L Chloride Level 115 H Carbon Dioxide Level 23 Anion Gap 8 Blood Urea Nitrogen 51 H Creatinine 2.29 H Est Glomerular Filtrat 21 L Rate mL/min Glucose Level 116 # Calcium Level 8.5 Phosphorus Level 4.3 Magnesium Level 2.5 Test 08/29/18 10:29 Creatine Kinase 24 Creatine Kinase Index 30.1 Creatinine Kinase MB 7.22 H (Mass) Troponin I 0.287 *H Medications Medication Current Medications IV Flush (NS 3 ml) 3 ml PER PROTOCOL IV Last administered on 08/05/18 09:07; Admin Dose 3 ML; Start 07/29/18 at 06:30 Ondansetron HCl (Zofran Inj) 4 mg Q6H PRN IV NAUSEA/VOMITING Last administered on 08/18/18 18:34; Admin Dose 4 MG; Start 07/29/18 at 06:30 Acetaminophen/ Hydrocodone Bitart ([place] (5/325)) 1 tab Q6H PRN PO .MOD PAIN 4- 6 Last administered on 08/29/18 08:42; Admin Dose 1 TAB; Start 07/29/18 at 06:30 Diagnostic Test (Pha) (Accu-Chek) 1 ea 02 XX Last administered on 08/27/18 01:38; Admin Dose 1 EA; Start 07/30/18 at 02:00 Acetaminophen (Tylenol Tab) 650 mg Q6H PRN PO .PAIN 1-3 OR TEMP Last administered on 08/28/18 20:58; Admin Dose 650 MG; Start 07/29/18 at 07:00 Eye Lubricant (Akwa Oint) 1 applic Q1H PRN BOTH EYES DRY EYES; Start 07/29/18 at 08:00 Atorvastatin Calcium (Lipitor) 20 mg QHS PO Last administered on 08/28/18at 20:54; Admin Dose 20 MG; Start 07/29/18 at 21:00 Clopidogrel Bisulfate (plaVIX) 75 mg DAILY PO Last administered on 08/29/18 08:39; Admin Dose 75 MG; Start 07/29/18 at 09:00 Cyanocobalamin (Vitamin B12) 50 mcg DAILY PO Last administered on 08/29/18 08:39; Admin Dose 50 MCG; Start 07/29/18 at 09:00 Levothyroxine Sodium (Synthroid) 50 mcg BEFORE BREAKFAST PO Last administered on 08/29/18at 06:10; Admin Dose 50 MCG; Start 07/29/18 at 07:00 Polyethyl Glycol/ Propylene Glycol (Systane 0.3-0.4% Eye Drops) 1 drop Q4H PRN BOTH EYES DRY EYES; Start 07/29/18 at 08:00 Albuterol (Ventolin Hfa) 2 puff Q4H RESP THERAPY PRN INH WHEEZING; Start at 09:00 Miscellaneous Information 1 ea NOTE XX ; Start 07/29/18 at 07:00 Glucose (Glutose) 15 gm Q15M PRN PO DECREASED GLUCOSE; Start 07/29/18 at 07:00 Glucose (Glutose) 22.5 gm Q15M PRN PO DECREASED GLUCOSE; Start 07/29/18 at 07:00 Dextrose (D50w Syringe) 25 ml Q15M PRN IV DECREASED GLUCOSE Last administered on 08/24/18at 07:58; Admin Dose 25 ML; Start 07/29/18 at 07:00 Dextrose (D50w Syringe) 50 ml Q15M PRN IV DECREASED GLUCOSE; Start 07/29/18 at 07:00 Glucagon (Glucagen) 1 mg Q15M PRN IM DECREASED GLUCOSE; Start 07/29/18 at 07:00 Glucose (Glutose) 15 gm Q15M PRN BUCCAL DECREASED GLUCOSE; Start 07/29/18 at 07:00 Alprazolam (Xanax) 0.25 mg Q8H PRN PO ANXIETY Last administered on 08/28/18at 20:58; Admin Dose 0.25 MG; Start 07/29/18 at 12:30 Polyethylene Glycol (Miralax) 17 gm DAILY PO Last administered on 08/28/18 08:29; Admin Dose 17 GM; Start 07/29/18 at 12:30 Magnesium Hydroxide (Milk Of Mag) 30 ml Q12H PRN PO STOMACH UPSET/CRAMPING Last administered on 07/31/18 21:28; Admin Dose 30 ML; Start 07/31/18 at 20:00 Al Hydrox/Mg Hydrox/Simethicone (Mag-Al Plus) 30 ml Q6H PRN PO GASTROINTESTINAL UPSET Last administered on 08/16/18 23:45; Admin Dose 30 ML; Start 08/03/18 at 17:30 Insulin Glargine (Lantus) 8 units DAILY@2000 SC Last administered on 08/28/18 20:52; Admin Dose 8 UNITS; Start 08/09/18 at 20:00 Albuterol/ Ipratropium (Duoneb) 3 ml Q2H RESP THERAPY PRN HHN sob Last adm inistered on 08/19/18 03:28; Admin Dose 3 ML; Start 08/14/18 at 12:00 Diltiazem HCl (Cardizem Iv) 5 mg Q4 PRN IV HR>70 for Cardiac CTA Last administered on 08/19/18 03:50; Admin Dose 5 MG; Start 08/17/18 at 11:30 Lorazepam (Ativan) 1 mg Q8H PRN IV ANXIETY Last administered on 08/20/18 12:39; Admin Dose 1 MG; Start 08/17/18 at 15:30 Epoetin Glenn-epbx (Retacrit (Non-Esrd)) 20,000 unit TuThSa@1700 SC Last administered on 08/28/18 18:18; Admin Dose 20,000 UNIT; Start 08/18/18 at 17:00 Simethicone (Mylicon) 160 mg Q6H PRN PO DISTENSION/GAS/BLOATING Last administered on 08/18/18 08:49; Admin Dose 160 MG; Start 08/17/18 at 20:00 Norepinephrine 250 ml @ 1.875 mls/ hr TITRATE IV Last administered on 08/20/18 08:57; Admin Dose 9.375 MLS/HR; Start 08/19/18 at 10:30 Insulin Aspart (Novolog Insulin Pen) NOVOLOG *MODERATE* ALGORI... Q4 SC Last administered on 08/28/18 20:56; Admin Dose 2 UNIT; Start 08/20/18 at 01:00 Lansoprazole (Prevacid) 30 mg DAILY@06 NGT Last administered on 08/29/18 06:09; Admin Dose 30 MG; Start 08/21/18 at 06:00 Piperacillin Sod/ Tazobactam Sod 100 ml @ 200 mls/hr Q8 IVPB Last administered on 08/29/18 06:09; Admin Dose 200 MLS/HR; Start 08/22/18 at 22:00 Enoxaparin Sodium (Lovenox) 50 mg DAILY SC Last administered on 08/29/18 08:44; Admin Dose 50 MG; Start 08/24/18 at 09:00 Metoprolol Tartrate (Lopressor) 25 mg BID PO Last administered on 08/29/18 08 :41; Admin Dose 25 MG; Start 08/23/18 at 21:00 Vancomycin HCl (Vanco Iv Per Pharmacy) VANCOMYCIN PER PHARMACY PER PROTOCOL XX ; Start 08/26/18 at 14:30 Vancomycin HCl 100 ml @ 100 mls/hr Q36H IVPB Last administered on 08/28/18 04:40; Admin Dose 100 MLS/HR; Start 08/28/18 at 04:00 Docusate Sodium (Colace Liquid Cup) 100 mg BID NGT Last administered on 08/29/18 08:39; Admin Dose 100 MG; Start 08/27/18 at 21:00 Sodium Chloride 1,000 ml @ 50 mls/hr Q20H IV Last administered on 08/29/18 08:33; Admin Dose 50 MLS/HR; Start 08/29/18 at 07:30 Aspirin (Aspirin) 81 mg DAILY GTB Last administered on 08/29/18 08:38; Admin Dose 81 MG; Start 08/29/18 at 09:00 Morphine Sulfate (morphine) 1 mg Q2H PRN IV SEVERE PAIN LEVEL 7-10; Start 08/29/18 at 09:30 DENISSE THAO NP Aug 29, 2018 11:58
--- NOTE | 2018-08-29 12:24 | CONS ---
Consult Date/Type/Reason Admit Date/Time Jul 29, 2018 at 06:16 Initial Consult Date 08/15/18 Type of Consult Pulmonary Requesting Provider: SANDI MURDOCK NP Date/Time of Note DATE: 08/29/18 TIME: 12:22 Subjective No significant changes continues nonrebreather O2 with persistent right pneumothorax. Family declined chest tube placement and are considering transition to hospice. Objective Vital Signs Date Temp Pulse Resp B/P (MAP) Pulse Ox O2 O2 Flow FiO2 Time Delivery Rate 08/29/18 82 16 136/59 100 Non 15.0 11:00 (84) Rebreather 08/29/18 97.8 08:00 08/28/18 60 16:03 Intake and Output 08/28/18 08/28/18 08/29/18 1515:00 23:00 07:00 IntakeIntake Total 689.5 ml 650 ml 740 ml OutputOutput Total 335 ml 259 ml 280 ml BalanceBalance 354.5 ml 391 ml 460 ml Exam GENERAL: Elderly appearing lady on nonrebreather O2. VITAL SIGNS: per chart NECK: Supple. No JVD or lymphadenopathy. CARDIAC EXAM: S1, S2. No added sounds or murmurs. CHEST: Diminished air entry right side greater than left ABDOMEN: Soft, nontender. No guarding or rebound. EXTREMITIES: No cyanosis, clubbing or edema. NEUROLOGIC: Generalized weakness. No focal deficits Vent Setting Ventilator Support Mode: AC, VC plus Fraction of Inspired Oxygen pe: 60 Positive End Expiratory Pressu: 5.0 Results/Medications Result Diagram: 08/29/18 0426 08/29/18 0426 Results 24 hrs Laboratory Tests Test 08/28/18 13:58 08/28/18 16:27 08/28/18 20:49 08/29/18 00:55 Bedside Glucose 126 171 161 128 Test 08/29/18 02:02 08/29/18 04:26 08/29/18 05:03 08/29/18 08:38 Bedside Glucose 127 133 112 White Blood Count 17.3 H Red Blood Count 3.24 L Hemoglobin 9.2 L Hematocrit 28.2 L Mean Corpuscular Volume 87.0 Mean Corpuscular 28.4 L Hemoglobin Mean Corpuscular 32.6 Hemoglobin Concent Red Cell Distribution 18.0 H Width Platelet Count 589 H Mean Platelet Volume 10.6 H Immature Granulocytes % 3.700 H Neutrophils % 63.1 Lymphocytes % 13.8 L Monocytes % 11.0 Eosinophils % 7.6 H Basophils % 0.8 Nucleated Red Blood 7.4 H Cells % Immature Granulocytes # 0.630 H Neutrophils # 10.9 H Lymphocytes # 2.4 Monocytes # 1.9 H Eosinophils # 1.3 H Basophils # 0.1 Nucleated Red Blood 1.3 H Cells # Sodium Level 146 H Potassium Level 3.4 L Chloride Level 115 H Carbon Dioxide Level 23 Anion Gap 8 Blood Urea Nitrogen 51 H Creatinine 2.29 H Est Glomerular Filtrat 21 L Rate mL/min Glucose Level 116 # Calcium Level 8.5 Phosphorus Level 4.3 Magnesium Level 2.5 Test 08/29/18 10:29 Creatine Kinase 24 Creatine Kinase Index 30.1 Creatinine Kinase MB 7.22 H (Mass) Troponin I 0.287 *H Medications Current Medications IV Flush (NS 3 ml) 3 ml PER PROTOCOL IV Last administered on 08/05/18 09:07; Admin Dose 3 ML; Start 07/29/18 at 06:30 Ondansetron HCl (Zofran Inj) 4 mg Q6H PRN IV NAUSEA/VOMITING Last administered on 08/18/18 18:34; Admin Dose 4 MG; Start 07/29/18 at 06:30 Acetaminophen/ Hydrocodone Bitart ([place] (5/325)) 1 tab Q6H PRN PO .MOD PAIN 4- 6 Last administered on 08/29/18 08:42; Admin Dose 1 TAB; Start 07/29/18 at 06:30 Diagnostic Test (Pha) (Accu-Chek) 1 ea 02 XX Last administered on 08/27/18 01:38; Admin Dose 1 EA; Start 07/30/18 at 02:00 Acetaminophen (Tylenol Tab) 650 mg Q6H PRN PO .PAIN 1-3 OR TEMP Last administered on 08/28/18 20:58; Admin Dose 650 MG; Start 07/29/18 at 07:00 Eye Lubricant (Akwa Oint) 1 applic Q1H PRN BOTH EYES DRY EYES; Start 07/29/18 at 08:00 Atorvastatin Calcium (Lipitor) 20 mg QHS PO Last administered on 08/28/18 20:54; Admin Dose 20 MG; Start 07/29/18 at 21:00 Clopidogrel Bisulfate (plaVIX) 75 mg DAILY PO Last administered on 08/29/18 08:39; Admin Dose 75 MG; Start 07/29/18 at 09:00 Cyanocobalamin (Vitamin B12) 50 mcg DAILY PO Last administered on 08/29/18 08:39; Admin Dose 50 MCG; Start 07/29/18 at 09:00 Levothyroxine Sodium (Synthroid) 50 mcg BEFORE BREAKFAST PO Last administered on 08/29/18 06:10; Admin Dose 50 MCG; Start 07/29/18 at 07:00 Polyethyl Glycol/ Propylene Glycol (Systane 0.3-0.4% Eye Drops) 1 drop Q4H PRN BOTH EYES DRY EYES; Start 07/29/18 at 08:00 Albuterol (Ventolin Hfa) 2 puff Q4H RESP THERAPY PRN INH WHEEZING; Start 07/29/18 at 09:00 Miscellaneous Information 1 ea NOTE XX ; Start 07/29/18 at 07:00 Glucose (Glutose) 15 gm Q15M PRN PO DECREASED GLUCOSE; Start 07/29/18 at 07:00 Glucose (Glutose) 22.5 gm Q15M PRN PO DECREASED GLUCOSE; Start 07/29/18 at 07:00 Dextrose (D50w Syringe) 25 ml Q15M PRN IV DECREASED GLUCOSE Last administered on 08/24/18at 07:58; Admin Dose 25 ML; Start 07/29/18 at 07:00 Dextrose (D50w Syringe) 50 ml Q15M PRN IV DECREASED GLUCOSE; Start 07/29/18 at 0 7:00 Glucagon (Glucagen) 1 mg Q15M PRN IM DECREASED GLUCOSE; Start 07/29/18 at 07:00 Glucose (Glutose) 15 gm Q15M PRN BUCCAL DECREASED GLUCOSE; Start 07/29/18 at 07:00 Alprazolam (Xanax) 0.25 mg Q8H PRN PO ANXIETY Last administered on 08/28/18at 20:58; Admin Dose 0.25 MG; Start 07/29/18 at 12:30 Polyethylene Glycol (Miralax) 17 gm DAILY PO Last administered on 08/28/18 08:29; Admin Dose 17 GM; Start 07/29/18 at 12:30 Magnesium Hydroxide (Milk Of Mag) 30 ml Q12H PRN PO STOMACH UPSET/CRAMPING Last administered on 07/31/18 21:28; Admin Dose 30 ML; Start 07/31/18 at 20:00 Al Hydrox/Mg Hydrox/Simethicone (Mag-Al Plus) 30 ml Q6H PRN PO GASTROINTESTINAL UPSET Last administered on 08/16/18 23:45; Admin Dose 30 ML; Start 08/03/18 at 17:30 Insulin Glargine (Lantus) 8 units DAILY@2000 SC Last administered on 08/28/18 20:52; Admin Dose 8 UNITS; Start 08/09/18 at 20:00 Albuterol/ Ipratropium (Duoneb) 3 ml Q2H RESP THERAPY PRN HHN sob Last administered on 08/19/18 03:28; Admin Dose 3 ML; Start 08/14/18 at 12:00 Diltiazem HCl (Cardizem Iv) 5 mg Q4 PRN IV HR>70 for Cardiac CTA Last administered on 08/19/18 03:50; Admin Dose 5 MG; Start 08/17/18 at 11:30 Lorazepam (Ativan) 1 mg Q8H PRN IV ANXIETY Last administered on 08/20/18 12:39; Admin Dose 1 MG; Start 08/17/18 at 15:30 Epoetin Glenn-epbx (Retacrit (Non-Esrd)) 20,000 unit TuThSa@1700 SC Last administered on 08/28/18 18:18; Admin Dose 20,000 UNIT; Start 08/18/18 at 17:00 Simethicone (Mylicon) 160 mg Q6H PRN PO DISTENSION/GAS/BLOATING Last administered on 08/18/18 08:49; Admin Dose 160 MG; Start 08/17/18 at 20:00 Norepinephrine 250 ml @ 1.875 mls/ hr TITRATE IV Last administered on 08/20/18 08:57; Admin Dose 9.375 MLS/HR; Start 08/19/18 at 10:30 Insulin Aspart (Novolog Insulin Pen) NOVOLOG *MODERATE* ALGORI... Q4 SC Last ad ministered on 08/28/18 20:56; Admin Dose 2 UNIT; Start 08/20/18 at 01:00 Lansoprazole (Prevacid) 30 mg DAILY@06 NGT Last administered on 08/29/18 06:09; Admin Dose 30 MG; Start 08/21/18 at 06:00 Piperacillin Sod/ Tazobactam Sod 100 ml @ 200 mls/hr Q8 IVPB Last administered on 08/29/18 06:09; Admin Dose 200 MLS/HR; Start 08/22/18 at 22:00 Enoxaparin Sodium (Lovenox) 50 mg DAILY SC Last administered on 08/29/18at 08:44; Admin Dose 50 MG; Start 08/24/18 at 09:00 Metoprolol Tartrate (Lopressor) 25 mg BID PO Last administered on 08/29/18 08:41; Admin Dose 25 MG; Start 08/23/18 at 21:00 Vancomycin HCl (Vanco Iv Per Pharmacy) VANCOMYCIN PER PHARMACY PER PROTOCOL XX ; Start 08/26/18 at 14:30 Vancomycin HCl 100 ml @ 100 mls/hr Q36H IVPB Last administered on 08/28/18at 04:40; Admin Dose 100 MLS/HR; Start 08/28/18 at 04:00 Docusate Sodium (Colace Liquid Cup) 100 mg BID NGT Last administered on 08:39; Admin Dose 100 MG; Start 08/27/18 at 21:00 Sodium Chloride 1,000 ml @ 50 mls/hr Q20H IV Last administered on 08/29/18 08:33; Admin Dose 50 MLS/HR; Start 08/29/18 at 07:30 Aspirin (Aspirin) 81 mg DAILY GTB Last administered on 08/29/18 08:38; Admin Dose 81 MG; Start 08/29/18 at 09:00 Morphine Sulfate (morphine) 1 mg Q2H PRN IV SEVERE PAIN LEVEL 7-10; Start 08/29/18 at 09:30 Assessment/Plan Hospital Course (Demo Recall) Assessment 1. Status post cardiopulmonary arrest 2. Encephalopathy possibly toxic metabolic 3. Status post septic shock, off vasopressors at present. 4. Recurrent right pleural effusion probably metastatic in nature. Large right PTX noted no tamponade physiology at present. 5. Metastatic uterine cancer 6. Metabolic acidosis improved with intravenous bicarbonate Plan 1. Continue high flow O2. Post extubation. 2. Continue Pleurx catheter chest tube however no change in pneumothorax. Family declined chest tube. Hospice evaluation. Family still undecided about reintubation status which I have discussed with figueroa gaming at length. Critical care time 40 minutes. FARHAN VALENTINO MD, [facility] Aug 29, 2018 12:24
--- NOTE | 2018-08-29 13:22 | PN ---
Date/Time of Note Date/Time of Note DATE: 08/29/18 TIME: 13:18 Assessment/Plan VTE Prophylaxis Risk score (from Ns)>0 risk: 10 Pharmacological prophylaxis: LMWH Assessment/Plan Hospital Course This is a 68-year-old female with past medical history of diabetes mellitus, peripheral artery disease, stroke, dyslipidemia, and hypothyroidism. The patient presented to the emergency room with multiple complaints including bilateral lower extremity edema, unintentional weight loss, etc. The patient was admitted to inpatient setting for further treatment and evaluation. The patient underwent a CT scan of the abdomen and pelvis on 08/01/2018 that showed abnormal enlargement of the uterus with significant thickening of the endometrial stripe with pelvis MRI showing irregular 9 cm exophytic posterior uterine mass. 1. Metastatic carcinosarcoma of uterus. Being followed by oncology. A poor candidate for chemo as per oncology. 2. Malignant pleural effusion. Status post right-sided thoracentesis on 08/15/2018. S/P Pleurx catheter placement on 08/23/2018. 3. Positive Lexiscan myocardial perfusion study. Study positive for partially reversible perfusion defect in the distal anterior wall. Being followed by cardiology, no plans for aggressive intervention at this time considering comorbidities Continue aspirin plus Plavix. 4. Status post cardiopulmonary arrest on 08/19/2018. Etiology could be secondary to underlying hypoxia versus others. Now extubated Poor prognosis. 5. NSTEMI on 08/22/2018. Continue antiplatelet therapy. Cardiology following. 6. Peripheral artery disease. Being followed by vascular surgery. Optimize medical management. Continue aspirin plus Plavix. Continue statins. 7. Diabetes mellitus. Hemoglobin A1c 6.3. Continue sliding scale insulin along with basal. 8. Hypothyroidism. Continue Synthroid. 9. Acute kidney injury. Being followed by nephrology. Use nephrotoxic drugs with caution. 10. Normocytic anemia. Monitor H&H closely. Continue Epogen. 11. Acute respiratory failure. Now extubated 12. S/P Shock. S/P IV pressors for blood pressure support 13. Pneumothorax Family refusing chest tube Prophylaxis: Lovenox DC planning: Palliative care consultation appreciated, patient now a DNR Poor prognosis Result Diagram: 08/29/18 0426 08/29/18 0426 Results 24hrs Laboratory Tests Test 08/28/18 13:58 08/28/18 16:27 08/28/18 20:49 08/29/18 00:55 Bedside Glucose 126 171 161 128 Test 08/29/18 02:02 08/29/18 04:26 08/29/18 05:03 08/29/18 08:38 Bedside Glucose 127 133 112 White Blood Count 17.3 H Red Blood Count 3.24 L Hemoglobin 9.2 L Hematocrit 28.2 L Mean Corpuscular Volume 87.0 Mean Corpuscular 28.4 L Hemoglobin Mean Corpuscular 32.6 Hemoglobin Concent Red Cell Distribution 18.0 H Width Platelet Count 589 H Mean Platelet Volume 10.6 H Immature Granulocytes % 3.700 H Neutrophils % 63.1 Lymphocytes % 13.8 L Monocytes % 11.0 Eosinophils % 7.6 H Basophils % 0.8 Nucleated Red Blood 7.4 H Cells % Immature Granulocytes # 0.630 H Neutrophils # 10.9 H Lymphocytes # 2.4 Monocytes # 1.9 H Eosinophils # 1.3 H Basophils # 0.1 Nucleated Red Blood 1.3 H Cells # Sodium Level 146 H Potassium Level 3.4 L Chloride Level 115 H Carbon Dioxide Level 23 Anion Gap 8 Blood Urea Nitrogen 51 H Creatinine 2.29 H Est Glomerular Filtrat 21 L Rate mL/min Glucose Level 116 # Calcium Level 8.5 Phosphorus Level 4.3 Magnesium Level 2.5 Test 08/29/18 10:29 Creatine Kinase 24 Creatine Kinase Index 30.1 Creatinine Kinase MB 7.22 H (Mass) Troponin I 0.287 *H Subjective 24 Hr Interval Summary Subjective hx not possible: pt non-verbal Exam/Review of Systems Exam Vitals Vital Signs Date Temp Pulse Resp B/P (MAP) Pulse Ox O2 O2 Flow FiO2 Time Delivery Rate 08/29/18 82 16 136/59 100 Non 15.0 11:00 (84) Rebreather 08/29/18 97.8 08:00 08/28/18 60 16:03 Intake and Output 08/28/18 08/28/18 08/29/18 1515:00 23:00 07:00 IntakeIntake Total 689.5 ml 650 ml 740 ml OutputOutput Total 335 ml 259 ml 280 ml BalanceBalance 354.5 ml 391 ml 460 ml Constitutional: non-verbal Respiratory: clear to auscultation Cardiovascular: regular rate and rhythm Gastrointestinal: soft; No distended Musculoskeletal: nl extremities to inspection Results Results 24hrs Laboratory Tests Test 08/28/18 13:58 08/28/18 16:27 08/28/18 20:49 08/29/18 00:55 Bedside Glucose 126 171 161 128 Test 08/29/18 02:02 08/29/18 04:26 08/29/18 05:03 08/29/18 08:38 Bedside Glucose 127 133 112 White Blood Count 17.3 H Red Blood Count 3.24 L Hemoglobin 9.2 L Hematocrit 28.2 L Mean Corpuscular Volume 87.0 Mean Corpuscular 28.4 L Hemoglobin Mean Corpuscular 32.6 Hemoglobin Concent Red Cell Distribution 18.0 H Width Platelet Count 589 H Mean Platelet Volume 10.6 H Immature Granulocytes % 3.700 H Neutrophils % 63.1 Lymphocytes % 13.8 L Monocytes % 11.0 Eosinophils % 7.6 H Basophils % 0.8 Nucleated Red Blood 7.4 H Cells % Immature Granulocytes # 0.630 H Neutrophils # 10.9 H Lymphocytes # 2.4 Monocytes # 1.9 H Eosinophils # 1.3 H Basophils # 0.1 Nucleated Red Blood 1.3 H Cells # Sodium Level 146 H Potassium Level 3.4 L Chloride Level 115 H Carbon Dioxide Level 23 Anion Gap 8 Blood Urea Nitrogen 51 H Creatinine 2.29 H Est Glomerular Filtrat 21 L Rate mL/min Glucose Level 116 # Calcium Level 8.5 Phosphorus Level 4.3 Magnesium Level 2.5 Test 08/29/18 10:29 Creatine Kinase 24 Creatine Kinase Index 30.1 Creatinine Kinase MB 7.22 H (Mass) Troponin I 0.287 *H Medications Medication Current Medications IV Flush (NS 3 ml) 3 ml PER PROTOCOL IV Last administered on 08/05/18at 09:07; Admin Dose 3 ML; Start 07/29/18 at 06:30 Ondansetron HCl (Zofran Inj) 4 mg Q6H PRN IV NAUSEA/VOMITING Last administered on 08/18/18at 18:34; Admin Dose 4 MG; Start 07/29/18 at 06:30 Acetaminophen/ Hydrocodone Bitart ([place] (5/325)) 1 tab Q6H PRN PO .MOD PAIN 4- 6 Last administered on 08/29/18 08:42; Admin Dose 1 TAB; Start 07/29/18 at 06:30 Diagnostic Test (Pha) (Accu-Chek) 1 ea 02 XX Last administered on 08/27/18at 01:38; Admin Dose 1 EA; Start 07/30/18 at 02:00 Acetaminophen (Tylenol Tab) 650 mg Q6H PRN PO .PAIN 1-3 OR TEMP Last administered on 08/28/18at 20:58; Admin Dose 650 MG; Start 07/29/18 at 07:00 Eye Lubricant (Akwa Oint) 1 applic Q1H PRN BOTH EYES DRY EYES; Start 07/29/18 at 08:00 Atorvastatin Calcium (Lipitor) 20 mg QHS PO Last administered on 08/28/18at 20:54; Admin Dose 20 MG; Start 07/29/18 at 21:00 Clopidogrel Bisulfate (plaVIX) 75 mg DAILY PO Last administered on 08/29/18 08:39; Admin Dose 75 MG; Start 07/29/18 at 09:00 Cyanocobalamin (Vitamin B12) 50 mcg DAILY PO Last administered on 08/29/18 08:39; Admin Dose 50 MCG; Start 07/29/18 at 09:00 Levothyroxine Sodium (Synthroid) 50 mcg BEFORE BREAKFAST PO Last administered on 08/29/18at 06:10; Admin Dose 50 MCG; Start 07/29/18 at 07:00 Polyethyl Glycol/ Propylene Glycol (Systane 0.3-0.4% Eye Drops) 1 drop Q4H PRN BOTH EYES DRY EYES; Start 07/29/18 at 08:00 Albuterol (Ventolin Hfa) 2 puff Q4H RESP THERAPY PRN INH WHEEZING; Start 07/29/18 at 09:00 Miscellaneous Information 1 ea NOTE XX ; Start 07/29/18 at 07:00 Glucose (Glutose) 15 gm Q15M PRN PO DECREASED GLUCOSE; Start 07/29/18 at 07:00 Glucose (Glutose) 22.5 gm Q15M PRN PO DECREASED GLUCOSE; Start 07/29/18 at 07:00 Dextrose (D50w Syringe) 25 ml Q15M PRN IV DECREASED GLUCOSE Last administered on 08/24/18 07:58; Admin Dose 25 ML; Start 07/29/18 at 07:00 Dextrose (D50w Syringe) 50 ml Q15M PRN IV DECREASED GLUCOSE; Start 07/29/18 at 07:00 Glucagon (Glucagen) 1 mg Q15M PRN IM DECREASED GLUCOSE; Start 07/29/18 at 07:00 Glucose (Glutose) 15 gm Q15M PRN BUCCAL DECREASED GLUCOSE; Start 07/29/18 at 07:00 Alprazolam (Xanax) 0.25 mg Q8H PRN PO ANXIETY Last administered on 08/28/18 20:58; Admin Dose 0.25 MG; Start 07/29/18 at 12:30 Polyethylene Glycol (Miralax) 17 gm DAILY PO Last administered on 08/28/18 08:29; Admin Dose 17 GM; Start 07/29/18 at 12:30 Magnesium Hydroxide (Milk Of Mag) 30 ml Q12H PRN PO STOMACH UPSET/CRAMPING Last administered on 07/31/18 21:28; Admin Dose 30 ML; Start 07/31/18 at 20:00 Al Hydrox/Mg Hydrox/Simethicone (Mag-Al Plus) 30 ml Q6H PRN PO GASTROINTESTINAL UPSET Last administered on 08/16/18 23:45; Admin Dose 30 ML; Start 08/03/18 at 17:30 Insulin Glargine (Lantus) 8 units DAILY@2000 SC Last administered on 08/28/18 20:52; Admin Dose 8 UNITS; Start 08/09/18 at 20:00 Albuterol/ Ipratropium (Duoneb) 3 ml Q2H RESP THERAPY PRN HHN sob Last administ ered on 08/19/18 03:28; Admin Dose 3 ML; Start 08/14/18 at 12:00 Diltiazem HCl (Cardizem Iv) 5 mg Q4 PRN IV HR>70 for Cardiac CTA Last administered on 08/19/18 03:50; Admin Dose 5 MG; Start 08/17/18 at 11:30 Lorazepam (Ativan) 1 mg Q8H PRN IV ANXIETY Last administered on 08/20/18 12:39; Admin Dose 1 MG; Start 08/17/18 at 15:30 Epoetin Glenn-epbx (Retacrit (Non-Esrd)) 20,000 unit TuThSa@1700 SC Last administered on 08/28/18 18:18; Admin Dose 20,000 UNIT; Start 08/18/18 at 17:00 Simethicone (Mylicon) 160 mg Q6H PRN PO DISTENSION/GAS/BLOATING Last administered on 08/18/18 08:49; Admin Dose 160 MG; Start 08/17/18 at 20:00 Norepinephrine 250 ml @ 1.875 mls/ hr TITRATE IV Last administered on 08/20/18 08:57; Admin Dose 9.375 MLS/HR; Start 08/19/18 at 10:30 Insulin Aspart (Novolog Insulin Pen) NOVOLOG *MODERATE* ALGORI... Q4 SC Last administered on 08/28/18 20:56; Admin Dose 2 UNIT; Start 08/20/18 at 01:00 Lansoprazole (Prevacid) 30 mg DAILY@06 NGT Last administered on 08/29/18 06:09; Admin Dose 30 MG; Start 08/21/18 at 06:00 Piperacillin Sod/ Tazobactam Sod 100 ml @ 200 mls/hr Q8 IVPB Last administered on 08/29/18 06:09; Admin Dose 200 MLS/HR; Start 08/22/18 at 22:00 Enoxaparin Sodium (Lovenox) 50 mg DAILY SC Last administered on 08/29/18 08:44; Admin Dose 50 MG; Start 08/24/18 at 09:00 Metoprolol Tartrate (Lopressor) 25 mg BID PO Last administered on 08/29/18 08:41; Admin Dose 25 MG; Start 08/23/18 at 21:00 Vancomycin HCl (Vanco Iv Per Pharmacy) VANCOMYCIN PER PHARMACY PER PROTOCOL XX ; Start 08/26/18 at 14:30 Vancomycin HCl 100 ml @ 100 mls/hr Q36H IVPB Last administered on 08/28/18 04:40; Admin Dose 100 MLS/HR; Start 08/28/18 at 04:00 Docusate Sodium (Colace Liquid Cup) 100 mg BID NGT Last administered on 08/29/18 08:39; Admin Dose 100 MG; Start 08/27/18 at 21:00 Sodium Chloride 1,000 ml @ 50 mls/hr Q20H IV Last administered on 08/29/18 08:33; Admin Dose 50 MLS/HR; Start 08/29/18 at 07:30 Aspirin (Aspirin) 81 mg DAILY GTB Last administered on 08/29/18 08:38; Admin Dose 81 MG; Start 08/29/18 at 09:00 Morphine Sulfate (morphine) 1 mg Q2H PRN IV SEVERE PAIN LEVEL 7-10; Start 08/29/18 at 09:30 NATY LUJAN Aug 29, 2018 13:22
[2018-08-29] MEDS ORDERED: morphine (DRIP) 100 MG/100 ML 100 ML IV SCH (14:30)
[2018-08-29] MEDS: morphine (DRIP) 100 MG/100 ML 100 ML IV SCH (15:06)
--- NOTE | 2018-08-29 17:27 | CONS ---
Assessment/Plan Assessment/Plan Assessment/Plan (Daily) Spoke with patient's 2 sons once again. Discussed options at this time especially since patient is suffering short of breath moaning and groaning. Explained once again that even if she has a sudden improvement in her respiratory status she was still remain with a non-treatable malignancy. Older brother was very emotional however after a period of time he did decide on comfort measures with his brother. Patient will be started off on comfort medications appropriate oxygen will be continued in the setting him for care and referral to inpatient hospice will be deferred until tomorrow morning. I believe it is too late to involve a another set of caregivers and there is a very high probability patient will overnight. Consultation Date/Type/Reason Admit Date/Time Jul 29, 2018 at 06:16 Date/Time of Note DATE: 08/29/18 TIME: 17:24 Past Medical History Medical History: congestive heart failure, coronary artery disease Home Meds Active Scripts Magnesium Oxide* (Mag-Oxide*) 400 Mg Tablet, 400 MG PO BID for 3 Days, #10 TAB Prov:FERNANDO YANCEY MD 07/08/18 Lactobacillus Rhamnosus GG (Culturelle) 1 Each Capsule, 1 CAP PO BID for 14 Days, #30 CAP Prov:FERNANDO YANCEY MD 07/08/18 Acetaminophen* (Tylenol*) 325 Mg Tablet, 650 MG PO Q6H PRN for .PAIN 1-3 OR TEMP for 10 Days, #10 TAB Prov:FERNANDO YANCEY MD 07/08/18 Lisinopril* (Lisinopril*) 5 Mg Tablet, 2.5 MG PO DAILY for 15 Days, #15 TAB Prov:FERNANDO YANCEY MD 07/08/18 Sulfamethoxazole/Trimethoprim (Sulfamethoxazole-Tmp Ds Tablet) 1 Each Tablet, 1 TAB PO BID for 5 Days, #10 TAB Prov:FERNANDO YANCEY MD 07/08/18 Reported Medications Sodium Bicarbonate* (Sodium Bicarbonate*) 650 Mg Tablet, 650 MG PO TID, TAB 07/05/18 Propylene Glycol-Peg 400 (Systane 0.3-0.4% Eye Drops) 0.3-0.4 % - 30 Ml Drops, 1 DROP BOTH EYES Q4H PRN for DRY EYES, #1 BOTTLE 07/05/18 Pantoprazole* (Protonix*) 40 Mg Tablet.dr, 40 MG PO QAM, TAB 07/05/18 Ondansetron Hcl* (Zofran*) 8 Mg Tablet, 8 MG PO Q6H PRN for NAUSEA AND OR VOMITING, TAB 07/05/18 Metoprolol Succinate* (Toprol XL*) 25 Mg Tab.sr.24h, 25 MG PO BID, #30 TAB 07/05/18 Metformin* (Glucophage*) 500 Mg Tab, 500 MG PO WITH BREAKFAST, #30 TAB 07/05/18 Levothyroxine Sodium* (Synthroid*) 50 Mcg Tablet, 50 MCG PO BEFORE BREAKFAST, #3 0 TAB 07/05/18 Hydrocodone/Acetaminophen ([place] 5-325 Tablet) 1 Each Tablet, 1 EACH PO Q6 PRN for PAIN, TAB 07/05/18 [place]-3 Fatty Acids/Fish Oil (Fish Oil 1,000 mg Capsule) 1 Each Capsule, 1 EACH PO DAILY, CAP 07/05/18 Cyanocobalamin* (Vitamin B-12*) 50 Mcg Tablet, 50 MCG PO DAILY, TAB 07/05/18 Clopidogrel Bisulfate (Clopidogrel) 75 Mg Tablet, 75 MG PO DAILY, #30 TAB 07/05/18 Atorvastatin Calcium* (Atorvastatin Calcium*) 20 Mg Tablet, 20 MG PO QHS, #30 TAB 07/05/18 Aspirin* (Aspirin* EC) 81 Mg Tablet.dr, 81 MG PO DAILY, TAB 07/05/18 Artificial Tears* ([place] Oint*) 3.5 Gm Oint, 1 APPLIC BOTH EYES Q1H PRN for DRY EYES, #1 TUB 07/05/18 Albuterol Sulfate (Proair Respiclick) 90 Mcg Aer.pow.ba, 2 PUFFS INHALATION Q4 PRN for WHEEZING, BOTTLE 07/05/18 Medications Current Medications Diagnostic Test (Pha) (Accu-Chek) 1 ea 02 XX Last administered on 08/27/18at 01:38; Admin Dose 1 EA; Start 07/30/18 at 02:00 Magnesium Hydroxide (Milk Of Mag) 30 ml Q12H PRN PO STOMACH UPSET/CRAMPING Last administered on 07/31/18at 21:28; Admin Dose 30 ML; Start 07/31/18 at 20:00 Miscellaneous Information (*Rx Drug Level Order Reminder*) VANCO TR 08/31 AT 0300 0300 ONCE XX ; Start 08/31/18 at 03:00; Stop 08/31/18 at 03:01 Morphine Sulfate/ Sodium Chloride 100 ml @ 1 mls/hr TITRATE IV Last administered on 08/29/18at 15:06; Admin Dose 4 MLS/HR; Start 08/29/18 at 14:30 Allergies: Coded Allergies: levofloxacin (Verified Allergy, Unknown, 08/23/18) Past Surgical History Past Surgical Hx: other (Refer to history of present illness) Social History Alcohol Use: none Smoking Status: Never smoker Drug Use: none Exam/Review of Systems Exam Vitals Vital Signs Date Temp Pulse Resp B/P (MAP) Pulse Ox O2 O2 Flow FiO2 Time Delivery Rate 08/29/18 80 16:00 08/29/18 14 152/66 100 Non 15.0 15:00 (94) Rebreather 08/29/18 97.9 12:00 08/28/18 60 16:03 Intake and Output 08/28/18 08/28/18 08/29/18 1515:00 23:00 07:00 IntakeIntake Total 689.5 ml 650 ml 840 ml OutputOutput Total 335 ml 259 ml 280 ml BalanceBalance 354.5 ml 391 ml 560 ml Results Result Diagram: 08/29/18 0426 08/29/18 0426 Results 24hrs Laboratory Tests Test 08/28/18 20:49 08/29/18 00:55 08/29/18 02:02 08/29/18 04:26 Bedside Glucose 161 128 127 White Blood Count 17.3 H Red Blood Count 3.24 L Hemoglobin 9.2 L Hematocrit 28.2 L Mean Corpuscular Volume 87.0 Mean Corpuscular 28.4 L Hemoglobin Mean Corpuscular 32.6 Hemoglobin Concent Red Cell Distribution 18.0 H Width Platelet Count 589 H Mean Platelet Volume 10.6 H Immature Granulocytes % 3.700 H Neutrophils % 63.1 Lymphocytes % 13.8 L Monocytes % 11.0 Eosinophils % 7.6 H Basophils % 0.8 Nucleated Red Blood 7.4 H Cells % Immature Granulocytes # 0.630 H Neutrophils # 10.9 H Lymphocytes # 2.4 Monocytes # 1.9 H Eosinophils # 1.3 H Basophils # 0.1 Nucleated Red Blood 1.3 H Cells # Sodium Level 146 H Potassium Level 3.4 L Chloride Level 115 H Carbon Dioxide Level 23 Anion Gap 8 Blood Urea Nitrogen 51 H Creatinine 2.29 H Est Glomerular Filtrat 21 L Rate mL/min Glucose Level 116 # Calcium Level 8.5 Phosphorus Level 4.3 Magnesium Level 2.5 Test 08/29/18 05:03 08/29/18 08:38 08/29/18 10:29 Bedside Glucose 133 112 Creatine Kinase 24 Creatine Kinase Index 30.1 Creatinine Kinase MB 7.22 H (Mass) Troponin I 0.287 *H Medications Medication Current Medications Diagnostic Test (Pha) (Accu-Chek) 1 ea 02 XX Last administered on 08/27/18at 01:38; Admin Dose 1 EA; Start 07/30/18 at 02:00 Magnesium Hydroxide (Milk Of Mag) 30 ml Q12H PRN PO STOMACH UPSET/CRAMPING Last administered on 07/31/18at 21:28; Admin Dose 30 ML; Start 07/31/18 at 20:00 Miscellaneous Information (*Rx Drug Level Order Reminder*) NANCY CLINE 08/31 AT 0300 0300 ONCE XX ; Start 08/31/18 at 03:00; Stop 08/31/18 at 03:01 Morphine Sulfate/ Sodium Chloride 100 ml @ 1 mls/hr TITRATE IV Last administered on 08/29/18at 15:06; Admin Dose 4 MLS/HR; Start 08/29/18 at 14:30 SARANYA ROBLERO Aug 29, 2018 17:27
[2018-08-30] VITALS: BP 93/54; PULSE 74; PULSE 91; RESP 11
[2018-08-30 01:00] VITALS: BP 82/50; PULSE 92; RESP 7
[2018-08-30 02:09] VITALS: PULSE 103; RESP 14
--- NOTE | 2018-08-30 08:18 | PN ---
DATE: 08/30/2018 SUBJECTIVE: The patient was placed on comfort measures on morphine drip and transferred to intensive care unit. Currently, patient is comfortable. OBJECTIVE: VITAL SIGNS: Blood pressure is 82/50, respiration 11, pulse 91, temperature 98.0. HEENT: Head is normocephalic. NECK: Supple. HEART: Regular rate. LUNGS: Show diminished breath sounds at the base. ABDOMEN: Soft, nontender to palpation without rebound or guarding. EXTREMITIES: Negative for clubbing, cyanosis, no edema. DERMATOLOGIC: No rashes. MUSCULOSKELETAL: No joint effusion. NEUROLOGIC: No change in exam. MEDICATIONS: The patient's medications have been reviewed. LABORATORY: The laboratory data has been reviewed. ASSESSMENT AND PLAN: 1. Nonoliguric acute kidney injury. 2. Chronic kidney disease. 3. Anemia. 4. Mineral bone disorder. 5. Respiratory failure. 6. Pneumothorax. 7. Coronary artery disease. 8. Diabetes. 9. Metastatic carcinosarcoma of the uterus. 10. Encephalopathy. 11. Sepsis. PLAN: The patient is on comfort measures. We will sign off. Dictated By: JACOB KAUFMAN/EMA Conf#: [id number] DID#: [id number]
--- NOTE | 2018-08-30 12:33 | PN ---
Date/Time of Note Date/Time of Note DATE: 08/30/18 TIME: 12:32 Assessment/Plan VTE Prophylaxis Risk score (from Nsg)>0 risk: 10 Pharmacological prophylaxis: LMWH Assessment/Plan Hospital Course This is a 68-year-old female with past medical history of diabetes mellitus, peripheral artery disease, stroke, dyslipidemia, and hypothyroidism. The patient presented to the emergency room with multiple complaints including bilateral lower extremity edema, unintentional weight loss, etc. The patient was admitted to inpatient setting for further treatment and evaluation. The patient underwent a CT scan of the abdomen and pelvis on 08/01/2018 that showed abnormal enlargement of the uterus with significant thickening of the endometrial stripe with pelvis MRI showing irregular 9 cm exophytic posterior uterine mass. 1. Metastatic carcinosarcoma of uterus. Being followed by oncology. A poor candidate for chemo as per oncology Patient now on comfort measures 2. Malignant pleural effusion. Status post right-sided thoracentesis on 08/15/2018. S/P Pleurx catheter placement on 08/23/2018. 3. Positive Lexiscan myocardial perfusion study. Study positive for partially reversible perfusion defect in the distal anterior wall. Being followed by cardiology, no plans for aggressive intervention at this time considering comorbidities Continue aspirin plus Plavix. 4. Status post cardiopulmonary arrest on 08/19/2018. Etiology could be secondary to underlying hypoxia versus others. Now extubated Poor prognosis. 5. NSTEMI on 08/22/2018. Continue antiplatelet therapy. Cardiology following. 6. Peripheral artery disease. Being followed by vascular surgery. Optimize medical management. Continue aspirin plus Plavix. Continue statins. 7. Diabetes mellitus. Hemoglobin A1c 6.3. Continue sliding scale insulin along with basal. 8. Hypothyroidism. Continue Synthroid. 9. Acute kidney injury. Being followed by nephrology. Use nephrotoxic drugs with caution. 10. Normocytic anemia. Monitor H&H closely. Continue Epogen. 11. Acute respiratory failure. Now extubated 12. S/P Shock. S/P IV pressors for blood pressure support 13. Pneumothorax Family refusing chest tube Prophylaxis: Lovenox DC planning: Palliative care consultation appreciated, patient now on comfort measures Result Diagram: 08/29/1842508/29/18425 Subjective 24 Hr Interval Summary Subjective hx not possible: pt non-verbal Exam/Review of Systems Exam Vitals Vital Signs Date Temp Pulse Resp B/P (MAP) Pulse Ox O2 O2 Flow FiO2 Time Delivery Rate 08/30/18 Nasal 4.0 02:30 Cannula 08/30/18 98.3 103 14 96 02:09 08/30/18 82/50 (61) 01:00 08/28/18 60 16:03 Intake and Output 08/29/18 08/29/18 08/30/18 1515:00 23:00 07:00 IntakeIntake Total 560 ml 32 ml 24 ml OutputOutput Total 250 ml 230 ml 35 ml BalanceBalance 310 ml -198 ml -11 ml Constitutional: non-verbal Respiratory: clear to auscultation Cardiovascular: regular rate and rhythm Gastrointestinal: soft Musculoskeletal: nl extremities to inspection Medications Medication Current Medications Morphine Sulfate/ Sodium Chloride 100 ml @ 1 mls/hr TITRATE IV Last administered on 08/29/18at 15:06; Admin Dose 4 MLS/HR; Start 08/29/18 at 14:30 NATY LUJAN Aug 30, 2018 12:33
[2018-08-30] MEDS: morphine (DRIP) 100 MG/100 ML 100 ML IV SCH (12:41)
--- NOTE | 2018-08-30 13:57 | CONS ---
Assessment/Plan Assessment/Plan Hospital Course (Demo Recall) ID PROGRESS NOTE CURRENT ABX: DAY # =>OFF ABX 24H INTERVAL SUMMARY * Patient is new to me -- upon rounding I discovered she has been transitioned to comfort care measures * She is currently somnolent on morphine GTT and looks comfortable without evidence of any distress * Chart reviewed -- 68 you F w/metastatic uterine cancer and terminal prognosis w/family opting in for comfort care measures * Family is not present upon rounds today PHYSICAL EXAMINATION: GENERAL: Somnolent on morphine GTT HEENT: AT, NC, salazar pallor noted NECK: Supple, CHEST: Rise symmetrical without respiratory distress HEART: Pulse RRR ABDOMEN: Benign EXTREMITIES: Warm, dry SKIN: No rash, no diaphoresis ID ASSESSMENT 68 YO f admit with: 1. SIRS w/ Persistent leukocytosis 2. Status post asystolic cardiopulmonary arrest requiring intubation 3. Persistent right pleural effusion likely malignant, possibly parapneumonic 4. 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 Acute kidney insufficiency 6. Diabetes 7. Pneumonia 8. Right mastoiditis 9. Right pneumothorax ABX ALLERGIES: KNDA INVASIVES: PIV CURRENT ABX: DAY # =>OFF ABX ID RECOMMENDATIONS/PLAN: 1.- 68 you F w/metastatic uterine cancer and terminal prognosis w/family opting in for comfort care measures * Thank you for allowing Dr. Dove's ID team consultants to participate in the care of this unfortunate lady. * Will sign off as she has now transitioned to comfort measures, OFF ABX . Consultation Date/Type/Reason Admit Date/Time Jul 29, 2018 at 06:16 Initial Consult Date 08/15/18 Requesting Provider: SANDI MURDOCK NP Date/Time of Note DATE: 08/30/18 TIME: 13:51 Exam/Review of Systems Exam Vitals Vital Signs Date Temp Pulse Resp B/P (MAP) Pulse Ox O2 O2 Flow FiO2 Time Delivery Rate 08/30/18 Nasal 2.0 08:00 Cannula 08/30/18 98.3 103 14 96 02:09 08/30/18 82/50 (61) 01:00 08/28/18 60 16:03 Intake and Output 08/29/18 08/29/18 08/30/18 1515:00 23:00 07:00 IntakeIntake Total 560 ml 32 ml 32 ml OutputOutput Total 250 ml 230 ml 35 ml BalanceBalance 310 ml -198 ml -3 ml Results Result Diagram: 08/29/18 0426 08/29/18 0426 Medications Medication Current Medications Morphine Sulfate/ Sodium Chloride 100 ml @ 1 mls/hr TITRATE IV Last administered on 08/30/18at 12:41; Admin Dose 4 MLS/HR; Start 08/29/18 at 14:30 DIONI GRAYSON NP Aug 30, 2018 13:57
[2018-08-30] MEDS ORDERED: LORAZEPAM 2 MG INJ IV PRN (18:00)
[2018-08-30] MEDS ORDERED: SCOPOLAMINE 1.5 MG PATCH TRANSDERM SCH (18:00)
[2018-08-31] MEDS: morphine (DRIP) 100 MG/100 ML 100 ML IV SCH (06:43)
[2018-08-31 08:00] VITALS: RESP 7
[2018-08-31 10:00] VITALS: RESP 6
--- NOTE | 2018-08-31 13:40 | DES ---
Date/Time of Note Date/Time of Note DATE: 08/31/18 TIME: 13:37 Discharge/ Summary Admission/Discharge Info Admit Date/Time Jul 29, 2018 at 06:16 Date/Time August 31, 2018 Final Diagnosis Cardiopulmonary failure secondary to metastatic carcinoma of the uterus, cardiac arrest, malignant pleural effusions, pneumothorax, diabetes Preliminary Cause of Cardiopulmonary failure secondary to metastatic carcinoma of the uterus, cardiac arrest, malignant pleural effusions, pneumothorax, diabetes Hospital Course Patient is a 68-year-old female with past medical history of diabetes mellitus, peripheral artery disease, stroke, dyslipidemia, and hypothyroidism. The patient presented to the emergency room with multiple complaints including bilateral lower extremity edema, unintentional weight loss, etc. The patient was admitted to inpatient setting for further treatment and evaluation. The patient underwent a CT scan of the abdomen and pelvis on 08/01/2018 that showed abnormal enlargement of the uterus with significant thickening of the endometrial stripe with pelvis MRI showing irregular 9 cm exophytic posterior uterine mass. Patient was diagnosed with metastatic carcinoma of the uterus was seen by oncology but was deemed a poor candidate for chemotherapy. Patient did have malignant pleural effusions and underwent right-sided thoracentesis and ultimat tony a Pleurx catheter. Patient did have a cardiac arrest was resuscitated. Patient did have a stress test that was positive and was seen by cardiology but due to comorbidities and poor functional status no further intervention was indicated. Patient was seen by Pat of care and ultimately was placed on comfort care and pronounced on 08/31/2018. NATY LUJAN Aug 31, 2018 13:40
== END 2018-08-31 13:40 | disposition expired | DRG 207 ==
LOC: E/R 03:11 → SUATTDRO 05:24 → TEL 06:16 → 2NE 07-30 18:36 → 5EC 08-06 20:25 → 6WM 08-13 14:14 → ICU 08-19 08:47 → MS1 08-30 02:00
PROVIDERS: ADMIT Internal Medicine; ATTEND Internal Medicine
PROC: 0FD13ZX Extraction of Right Lobe Liver, Percutaneous Approach, Diagnostic (ICD-10-PCS; 2018-08-10)
PROC: 5A1955Z Respiratory Ventilation, Greater than 96 Consecutive Hours (ICD-10-PCS; 2018-08-15)
PROC: 0W993ZX Drainage of Right Pleural Cavity, Percutaneous Approach, Diagnostic (ICD-10-PCS; 2018-08-15)
PROC: 30233N1 Transfusion of Nonautologous Red Blood Cells into Peripheral Vein, Percutaneous Approach (ICD-10-PCS; 2018-08-19)
PROC: 06HY33Z Insertion of Infusion Device into Lower Vein, Percutaneous Approach (ICD-10-PCS; 2018-08-19)
PROC: 5A12012 Performance of Cardiac Output, Single, Manual (ICD-10-PCS; 2018-08-19)
PROC: 0BH18EZ Insertion of Endotracheal Airway into Trachea, Via Natural or Artificial Opening Endoscopic (ICD-10-PCS; 2018-08-19)
PROC: 0B9N30Z Drainage of Right Pleura with Drainage Device, Percutaneous Approach (ICD-10-PCS; principal; 2018-08-23)
DX: C78.2 Secondary malignant neoplasm of pleura (principal); J96.01 Acute respiratory failure with hypoxia; G92 Toxic encephalopathy; J18.9 Pneumonia, unspecified organism; R65.21 Severe sepsis with septic shock; I21.4 Non-ST elevation (NSTEMI) myocardial infarction; A41.9 Sepsis, unspecified organism; R40.20 Unspecified coma; N17.0 Acute kidney failure with tubular necrosis; I50.31 Acute diastolic (congestive) heart failure; E44.0 Moderate protein-calorie malnutrition; J93.9 Pneumothorax, unspecified; C78.7 Secondary malignant neoplasm of liver and intrahepatic bile duct; E87.0 Hyperosmolality and hypernatremia; E87.4 Mixed disorder of acid-base balance; C55 Malignant neoplasm of uterus, part unspecified; E11.9 Type 2 diabetes mellitus without complications; I73.9 Peripheral vascular disease, unspecified; E03.9 Hypothyroidism, unspecified; E78.5 Hyperlipidemia, unspecified; K59.00 Constipation, unspecified; G47.00 Insomnia, unspecified; E87.6 Hypokalemia; F03.90 Unspecified dementia, unspecified severity, without behavioral disturbance, psychotic disturbance, mood disturbance, and anxiety; E87.5 Hyperkalemia; D50.9 Iron deficiency anemia, unspecified; I46.9 Cardiac arrest, cause unspecified; I25.10 Atherosclerotic heart disease of native coronary artery without angina pectoris; H70.90 Unspecified mastoiditis, unspecified ear; Z68.20 Body mass index [BMI] 20.0-20.9, adult; Z86.73 Personal history of transient ischemic attack (TIA), and cerebral infarction without residual deficits; Z79.84 Long term (current) use of oral hypoglycemic drugs
CPT/HCPCS: 31500; 36415; 36430; 36600; 70450; 71045; 71250; 72196; 74176; 74183; 75982; 76705; 76775; 76830; 76856; 76942; 76998; 77012; 78264; 78452; 80048; 80053; 80061; 81001; 81003; 82043; 82105; 82378; 82550; 82553; 82668; 82728; 82803; 82962; 83036; 83540; 83605; 83615; 83735; 83880; 83986; 84100; 84132; 84155; 84300; 84443; 84484; 85014; 85018; 85025; 85610; 85651; 85730; 86140; 86301; 86304; 86850; 86900; 86901; 86920; 87070; 87081; 87086; 87102; 87116; 88104; 88305; 88307; 88313; 89051; 92950; 93005; 93017; 93306; 93922; 93970; 94002; 94003; 94660; 94664; 94770; 95819; 96374; 96375; 97110; 97116; 97161; 97164; 97530; A9500; A9505; A9541; C1751; J0171; J0461; J0692; J1200; J1630; J1644; J1650; J1815; J1940; J2060; J2270; J2405; J2543; J2765; J2785; J2916; J2997; J3010; J3370; J3480; J7030; J7040; J7042; J7070; P9016; P9047; Q5106